=== PATIENT | female | born 1960 | race Caucasian/White ===

== ENCOUNTER 2020-11-28 14:34 | Outpatient (CLI) | payer OTHER, SELFPAY ==
--- NOTE | ~2020-11-28 | XR_ITS ---
EXAMINATION: XR knee RT min 4V DATE: 11/28/2020 15:55 INDICATION: Abnormality of gait and mobility. TECHNIQUE: 4 views of right knee were obtained. COMPARISON: None. FINDINGS: There is lateral subluxation of patella. No fracture. There is severe osteoarthritis of lat eral and patellofemoral compartments and moderate osteoarthritis of medial compartment. No knee joint effusion. There is a 2.7 cm loose body in the suprapatellar bursa. IMPRESSION: 1. Severe right knee osteoarthritis. 2. Right knee joint loose body. Reviewed, dictated and finalized at location A. FACTURING PROCESS TECHNICIAN
--- NOTE | ~2020-11-28 | XR_ITS ---
EXAMINATION: XR knee LT min 4V DATE: 11/28/2020 15:54 INDICATION: Abnormality of gait and mobility. TECHNIQUE: 4 views of left knee were obtained. COMPARISON: None. FINDINGS: There is lateral subluxation of patella. No fracture. There is severe tricompartmental oste oarthritis. No knee joint effusion, but sensitivity is decreased by obesity. IMPRESSION: 1. Severe left knee osteoarthritis. Reviewed, dictated and finalized at location A. LLIGENCE ENGINEER
[2020-11-28 15:09] LABS: Basophils Absolute Auto 0.1 K/mm3 (0.0-0.1); Basophils Percent Auto 0.5 % (0.2-1.2); Eosinophils Absolute Auto 0.2 K/mm3 (0-0.3); Eosinophils Percent Auto 1.5 % (0-4.4); Hemoglobin 17.5 g/dL (12.0-15.0); Immature Granulocyte Absolute 0.14 K/mm3 (0.00-0.031); Lymphocytes Absolute Auto 2.93 K/mm3 (0.9-3.2); Lymphocytes Percent Auto 20.1 % (18.3-44.2); Mean Corpuscular Hemoglobin 28.7 pg (26-34); Mean Corpuscular Volume 86.9 fl (80-100); Mean Platelet Volume 9.5 fl (7.4-10.4); Monocytes Absolute Auto 0.8 K/mm3 (0.1-0.6); Monocytes Percent Auto 5.5 % (2.6-8.5); Neutrophils Absolute Auto 10.4 K/mm3 (1.3-6.7); Neutrophils Percent Auto 71.4 % (45.5-73.1); Platelet Count Result 281 k/mm3 (150-375); Red Cell Distribution Width 14.3 % (11.5-14.5); White Blood Count 14.6 K/mm3 (4.5-10.0)
[2020-11-28 15:22] LABS: Alanine Aminotransferase 16 U/L (4-35); Alkaline Phosphatase 98 U/L (38-126); Anion Gap 5 mmol/L (8-16); Aspartate Amino Transferase 16 U/L (14-36); Bilirubin,Total 0.7 mg/dL (0.2-1.3); Blood Urea Nitrogen 14 mg/dL (7-17); Calcium 8.7 mg/dL (8.4-10.2); Carbon Dioxide 30 mmol/L (22-30); Chloride 103 mmol/L (98-107); Cholesterol 175 mg/dL (0-200); Estimated Glomerular Filt Rate > 60; Glucose 104 mg/dL (65-105); HDL Direct 35 mg/dL; Sodium 138 mmol/L (137-145); Triglycerides 181 mg/dL (<150)
[2020-11-28 15:32] LABS: LDL Cholesterol Direct 110 mg/dL
[2020-11-28 15:47] LABS: Creatinine Urine 74.1 mg/dL
[2020-11-28 15:52] LABS: MALB Creatinine Ratio 23.1 mg/g (0-30); Microalbumin Urine Random 17.1 mg/L (0-16.7)
[2020-11-28 16:02] LABS: Free T4 Free Thyroxine 1.04 ng/mL (0.78-2.19)
[2020-11-28 16:18] LABS: Hemoglobin A1C 9.9 % (<5.7)
[2020-11-28 17:56] LABS: Vitamin D 25 Hydroxy < 12.8 ng/mL
== END 2020-11-28 14:35 | disposition home or self-care (01) ==
PROVIDERS: PCP Family Medicine; Visit Provider Nurse Practitioner
DX: Z00.01 Encounter for general adult medical examination with abnormal findings (principal); E11.42 Type 2 diabetes mellitus with diabetic polyneuropathy; I10 Essential (primary) hypertension; F31.9 Bipolar disorder, unspecified; F41.1 Generalized anxiety disorder; E78.00 Pure hypercholesterolemia, unspecified; E55.9 Vitamin D deficiency, unspecified; R80.9 Proteinuria, unspecified; M23.41 Loose body in knee, right knee; M17.0 Bilateral primary osteoarthritis of knee
CPT/HCPCS: 36415; 73564; 80053; 80061; 82043; 82306; 83036; 84439; 84443; 84481; 85025

== ENCOUNTER 2020-12-25 12:30 | Outpatient (RCR) | payer OTHER, SELFPAY ==
--- NOTE | 2020-12-18 12:27 | PTOPEVAL ---
PHYSICAL THERAPY EVALUATON Thank you for referring Juliann Moody to [facility].? Juliann was evaluated today for the diagnosis of molina.knee pain. The patient is scheduled to be seen for therapy? 2 x/week for 4 weeks. Please review, sign, date and return this plan of care LAURA. I agree with and certify that the following plan of care is medically necessary. Referring Physician Date Attending Provider: Ana Buckner, BRISA *PT Outpatient Evaluation Start: 12/18/20 09:18 Freq: Status: Active Protocol: Document 12/18/20 09:18 MLV (Rec: 12/18/20 10:43 MLV [id number]) Assessment Status Evaluation Evaluation Information Problem Diagnosis molina. knee pain/OA Onset chronic Additional Evaluation Detail The patient reports molina. knee pain with left>right. The patient has had knee pain for 25 years and finally saw a new MD. The patient had xrays and found OA. The patient had an injection left knee 1 month that didn't help so scheduled to have gel shots through pain management. Subjective Information The patient realizes her Query Text:As Reported By Patient/ limits and her goal is to walk Family short distances to be more functional at her apartment for daily activities. Pain Assessment Timing of Pain Assessment Assessment Pain Scale Pain Scale Used Numeric (1 - 10) Self Report Pain Assessment Right Knee(s) Reported Pain Level 7 Pain Frequency Chronic Greatest Pain Intensity 10 Pain Aggravating Factors Exercise/Activity Pain Behaviors Guarding,Limping Left Knee(s) Reported Pain Level 8 Pain Description With Movement Pain Frequency Chronic Other Pain Description has a ramp to avoid stairs Greatest Pain Intensity 10 Pain Aggravating Factors Exercise/Activity,Walking, Weight Bearing/Standing Pain Behaviors Grimacing,Limping,Moaning Pain Score Pain Score 8,7: Self Report Interventions Used Interventions Used By Clinicians Education Pain Relief Interventions Used By Ice,Inactivity/Rest,Relaxation Patient Technique,Sitting Other Alleviating Interventions icy hot Lower Extremity Range of Motion General Lower Extremity Range of Motion Gross Lower Extremity Range of Motion right knee active motion 22 Comments degrees extension, 1
--- NOTE | 2020-12-22 09:44 | PCPTNOTE ---
Patient called & cancelled scheduled appointment this date due to having a stomach bug. Plans to return for next visit.
--- NOTE | 2020-12-28 11:19 | PCPTNOTE ---
Patient called & cancelled scheduled appointment this date due to falling.
--- NOTE | 2021-01-04 13:33 | PCPTNOTE ---
Patient did not show up for scheduled appointment this date. Called and had to leave a message.
--- NOTE | 2021-01-08 13:59 | PCPTNOTE ---
Juilann No-showed for maximino's appointment at 13:30. Called to reschedule and remind Pt of upcoming appointment. Pt answered, she requested to cancel today's and all future appointments. She stated she keeps falling at home and is in too much pain to make it to therapy. She also stated she would not be able to return to therapy until February due to moving. Informed Pt we are here to help her to improve strength to prevent her from falling and help her with managing her pain. Pt stated she understood however continued to insist on canceling all future appointment. Therapist and front office help were informed of Pt's request.
--- NOTE | 2021-01-08 14:03 | PCPTNOTE ---
PHYSICAL THERAPY DISCHARGE Attending Provider: Ana Buckner, SAFETY CLOTHING AND EQUIPMENT DEVELOPER- Patient:Juliann Moody Date of :1960 Patient has not returned for any further treatments since 12/25/2020, therefore she will be discharged at this time. The patient was called to assess reason for not showing; patient reports wanting to cancel all further appointments due to multiple personal factors. Patient?s initial visit was on 12/18/2020 09:15 and she had a total of 2 visits. The goals have not been met. Thank you for referring this patient to [facility]. Please review, sign, date and return this discharge summary LAURA. I have been updated about the patient's current status and I agree with discharge from the above service at this time. Referring Physician Date
== END 2021-01-09 10:15 | disposition home or self-care (01) ==
LOC: ANHPT 12:30
PROVIDERS: PCP Family Medicine; Visit Provider Nurse Practitioner Family
DX: M25.561 Pain in right knee (principal); M25.562 Pain in left knee
CPT/HCPCS: 97110; 97162

== ENCOUNTER 2023-08-08 12:20 | Inpatient (IN) | payer OTHER, SELFPAY ==
[2023-08-08] VITALS (21 sets, daily range): BP systolic 99–122; BP diastolic 63–88; PULSE 93–105; RESP 16–22; TEMP 36.3–36.8; O2SAT 89–98; BMI 68.0
--- NOTE | ~2023-08-08 | XR_ITS ---
EXAMINATION: XR chest 1V portable Exam Date/Time: 08/09/2023 19:05 CDT HISTORY: sob weakness Comparison: None. RESULT: Motion artifact is present. Lines, tubes, and devices: None. Lungs and pleura: Clear. Cardiomediastinal silhouette: Unremarkable. Other: No acute osseous or upper abdominal finding. IMPRESSION: No acute cardiopulmonary process. Reviewed, dictated and finalized at location K.
--- NOTE | ~2023-08-08 | XR_ITS ---
EXAM: XR knee LT 3V DATE: 08/10/2023 15:17 HISTORY: effusion AND pain . COMPARISON: None available. FINDINGS: Normal mineralization. No fracture or dislocation. No lytic or blastic lesion. Severe tric ompartmental left knee osteoarthritis. No erosion or periosteal change. Moderate knee joint effusion. IMPRESSION: No acute osseous finding in the left knee. Reviewed, dictated and finalized at location K.
--- NOTE | ~2023-08-08 | CT_ITS ---
EXAMINATION: CT brain wo con DATE: 08/08/2023 18:34 INDICATION: Mental status change. Generalized weakness. Frequent falls. TECHNIQUE: Computed tomography (CT) of the head was performed without intravenous contrast. The mA wa s adjusted according to patient size. Iterative reconstruction technique was employed. Exam dose: 60 5.33 mGy-cm total exam DLP. COMPARISON: None FINDINGS: No intracranial mass lesion or hemorrhage or cerebrovascular accident, midline shift or mas s effect is detected. No subdural or epidural hematoma. Bilateral carotid siphon internal carotid artery calcifications and some vertebral artery and basilar artery calcifications are noted. The included paranasal sinuses and the mastoid air cells are normally developed and aerated. No fracture or bone destruction of the cranial vault. IMPRESSION: No skull fracture or acute intracranial finding Cerebral atherosclerosis Reviewed, dictated and finalized at Location A. Reviewed, dictated and finalized at location A.
--- NOTE | ~2023-08-08 | XR_ITS ---
EXAMINATION: XR chest 1V portable INDICATION: Shortness of breath TECHNIQUE: Portable AP chest at 1701 hours COMPARISON: 08/09/2023 FINDINGS: There are airspace opacities of the mid and lower lung zones. No pleural effusion or pneumo thorax. The cardiomediastinal silhouette is normal. IMPRESSION: 1. Airspace opacities of the mid and lower lung zones, consistent with pneumonia versus pulmonary porfirio ma versus atelectasis. Reviewed, dictated and finalized at location F. IMPRESSION: 1. Airspace opacities of the mid and lower lung zones, consistent with pneumoni a versus pulmonary edema versus atelectasis.
--- NOTE | ~2023-08-08 | US_ITS ---
EXAMINATION: US venous doppler [facility] DATE: 08/15/2023 10:21 INDICATION: Calf pain. TECHNIQUE: Grayscale ultrasound images without and with compression and Doppler ultrasound images of the bilateral lower extremity veins were obtained. COMPARISON: None. FINDINGS: The visualized portions of right common femoral vein, profunda (deep) femoral vein, femoral vein, pop liteal vein, peroneal veins, posterior tibial veins, and greater saphenous vein outflow are patent. The visualized portions of left common femoral vein, profunda femoral vein, femoral vein, popliteal v ein, peroneal veins, posterior tibial veins, and greater saphenous vein outflow are patent. IMPRESSION: 1. No deep venous thrombosis. Reviewed, dictated and finalized at location E.
--- NOTE | ~2023-08-08 | XR_ITS ---
XR femur LT min 2V, XR hip LT min 2V 08/15/2023 09:45 Indication: Left leg pain Procedure: 2 views left hip and 2 views left femur Comparison: No prior studies for comparison. Findings: There is mild osteoarthritis of the left hip. There is severe osteoarthritis of the left kn ee. Normal mineralization. No fracture or traumatic malalignment. No foreign bodies. There is osteiti s pubis. 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 Reviewed, dictated and finalized at location B. 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
--- NOTE | 2023-08-08 16:13 | ED.WEAKNESS ---
HPI - Weakness General Chief complaint: Weakness Stated complaint: weakness Time Seen by Provider: 08/08/23 16:13 History of Present Illness HPI Narrative: Patient is a 63-year-old female with history of DM, CAD s/p PCI x1 here with frequent falls. Patient notes that over the last 1 week she has had 7 falls. She states that she usually feels dizzy, lightheaded and then slides to the ground. She denies any head injuries. She has not had any shortness of breath or chest pain prodromal to her falls. She denies any diarrhea, cough, congestion. She does note that she has pain in her bilateral inguinal folds were she has had recurrent infections in the past. She has had significant difficulty bathing herself in usually takes short Sitz baths however even this has been difficult. She does note that she had necrotizing fasciitis in the past in her right groin, she notes that is not feel similar to that at this point. She denies any fever chills. Related Data Allergies Allergy/AdvReac Type Severity Reaction Status Date / Time morphine Allergy Swelling Verified 08/08/23 20:44 of Lip/Tongue/Throat Review of Systems Review of Systems: CONSTITUTIONAL: Denies fever, chills, or sweats. EYES: Denies visual changes, redness, or discharge. ENT: Denies rhinorrhea, congestion, sore throat, or otalgia. CARDIOVASCULAR: Denies chest pain, palpitations, or edema. Light headedness, dizziness. RESPIRATORY: Denies cough or dyspnea. GASTROINTESTINAL: Denies abdominal pain, nausea, vomiting, or diarrhea. GENITOURINARY: Denies dysuria or hematuria. SKIN: rashes in bilateral inguinal folds. MUSCULOSKELETAL: chronic back pain, no joint pain, or myalgia. NEUROLOGIC: Denies headache, numbness, or weakness. Exam Narrative: GENERAL: Well-appearing, well-nourished, and in no acute distress. HEAD: Normocephalic, atraumatic. EYES: PERRLA and EOMI. ENT: Nares clear. Mucous membranes moist. NECK: Supple. CHEST: Clear to auscultation. No respiratory distress. HEART: Regular rate and rhythm. Normal peripheral pulses. ABDOMEN: Soft, nontender, obese abdomen. EXTREMITIES: Normal range of motion. No edema. SKIN: Warm, skin breakdown present in bilateral inguinal folds underneath her pannus. She does have some discharge bilaterally however appears to likely be consistent with application of gold greco powder at home. She is tender on the right, may have some early cellulitis in addition to fungal infection. Clinically does not appear to have necrotizing fasciitis NEURO: No focal deficits. Alert and oriented x3. PSYCH: Normal mood and affect. Course Course Emergency Course: Chart review performed. Patient here for generalized weakness and frequent falls. Uses an electric wheelchair. PCP reportedly recommended coming into the ED. No prior notes in our system to review. Triage vitals show tachycardia otherwise within normal limits. Patient seen evaluated, in no acute distress. She does have skin breakdown and bilateral inguinal folds, concerning for cellulitis on the right, no palpable crepitus. I do not believe she currently has necrotizing fasciitis in this area. Will start vancomycin for cellulitis. Informed by Radiology that patient refused her CT due to claustrophobia. I did speak with the patient, she is agreeable to taking a small dose of Ativan prior to attempted CT. Nursing updated on plan. Lab work reviewed, no leukocytosis, creatinine 1.8, this is up from her baseline of 0.5. CRP 21.5, this is likely due to her cellulitis in her right groin. UA not consistent with UTI. Will call to discuss admission with hospitalist. Patient accepted for admission by Dr. Velez. Nystatin powder ordered for inguinal folds. Recommends 100 cc/hr NS. These have been ordered. Vital Signs Vital signs: Vital Signs Temperature 97.5 F L 08/08/23 12:47 Pulse Rate 105 H 08/08/23 12:47 Respiratory Rate 18 08/08/23 12:47 Blood Pressu
--- NOTE | 2023-08-08 16:17 | ECG_ITS ---
Measurements Intervals [place] Rate: 96 P: 62 DC: 179 QRS: -13 QRSD: 96 T: 78 QT: 334 QTc: 422 Interpretive Statements SINUS RHYTHM POSSIBLE LEFT ATRIAL ENLARGEMENT DELAYED PRECORDIAL R/S TRANSITION BASELINE ARTIFACT- I, II, AVR, AVL, AVF, V1, V3 BORDERLINE ECG NO PREVIOUS ECG AVAILABLE FOR COMPARISON Electronically Signed On 08-08-2023 20:22:40 CDT by Wellington Baker D.O.
--- NOTE | 2023-08-08 17:02 | PC.NURSE ---
pt has jagdeep areas that appears to be yeast as evidence by appearance and odor under abdominal fold and behind left knee. Reports she has been treating areas with gold greco powder
[2023-08-08 17:14] LABS: Mean Corpuscular HGB Conc 33.3 g/dl (32-36); Mean Corpuscular Hemoglobin 28.8 pg (26-34); Mean Corpuscular Volume 86.5 fl (80-100); Mean Platelet Volume 10.1 fl (7.4-10.4); Platelet Count Result 256 k/mm3 (150-375); Red Cell Distribution Width 15.5 % (11.5-14.5); White Blood Count 7.6 K/mm3 (4.5-10.0)
[2023-08-08 17:25] LABS: Lactic Acid Reflex 1.5 mmol/L (0.7-2.0)
[2023-08-08 17:27] LABS: Appearance Urine Cloudy (Clear); Bacteria Urine None Seen /hpf; Bilirubin Urine 2+ (Negative); Blood Urine Negative (Negative); Color Urine Dark Yellow (Yellow); Glucose Urine UA 3+ mg/dL (Negative); Ketones Urine Trace mg/dL (Negative); Leukocyte Esterase Ur Trace LEU/UL (Negative); Need Manual Microscopic Reviewed; Nitrate Urine Negative (Negative); Non Pathogenic Casts >20; Protein Urine 1+ mg/dL (Negative); RBC Urine 0-2 /hpf (0-2); Specific Grav Ur 1.025 (1.001-1.035); Squamous Epithelial Cell Urine Few /hpf (Few); WBC Urine 0-5 /hpf
[2023-08-08 17:30] LABS: Add Urine Microscopic? YES
[2023-08-08 17:39] LABS: Band Neutrophils Percent 2 % (0-6); Monocytes Absolute Manual 0.91 K/mm3 (0.1-0.90); Monocytes Percent Manual 12 % (3-9); Neutrophils Absolute Manual 4.78 K/mm3 (1.7-7.2); Neutrophils Percent Manual 61 % (46-73); Total Cells Counted 100
[2023-08-08 17:40] LABS: Platelet Estimate Adequate (Adequate); Schistocytes None Seen (NORMAL)
[2023-08-08 17:41] LABS: Anisocytosis 2+ (NORMAL); Atypical Lymphocytes Present
[2023-08-08] MEDS: Please add drug allergy info to patient profile. 1 EACH XX (17:53)
[2023-08-08] MEDS: LORazepam INJ (*CRX) 2 MG/ML VIAL 1 MG IV PUSH (18:20)
[2023-08-08 19:00] LABS: CRP 21.5 mg/dL (<1.0)
--- NOTE | 2023-08-08 19:27 | PC.NURSE ---
This RN assumed care of patient. This RN took patient report from IMANI Saba.
[2023-08-08 20:10] LABS: Alanine Aminotransferase 27 U/L (6-35); Albumin Level 3.7 g/dL (3.5-5.1); Alkaline Phosphatase 112 U/L (38-126); Anion Gap 9 mmol/L (8-16); Aspartate Amino Transferase 30 U/L (14-36); Bilirubin,Total 0.7 mg/dL (0.2-1.3); Blood Urea Nitrogen 38 mg/dL (7-17); Calcium 8.4 mg/dL (8.4-10.2); Carbon Dioxide 23 mmol/L (22-30); Chloride 98 mmol/L (98-107); Creatine Kinase 184 U/L (30-135); Estimated CRCL calculation 44 ml/min; Estimated Glomerular Filt Rate 29; Glucose 185 mg/dL (65-110); Potassium 4.3 mmol/L (3.4-5.0); Sodium 130 mmol/L (137-145)
[2023-08-08 20:22] LABS: Troponin I < 0.012 ng/mL (0.000-0.034)
[2023-08-08] MEDS: LACTATED RINGERS 1,000 ML 999 ML IV CONT (20:47)
[2023-08-08] MEDS: HYDROmorphone HCL INJ (*CRX) 1 MG/ML SYR IV PUSH (20:58)
[2023-08-08] MEDS: ONDANSETRON INJ 4 MG/2 ML VIAL IV PUSH (20:58)
--- NOTE | 2023-08-08 21:39 | PC.NURSE ---
Upon pt falling asleep pt placed on 2L Nasal cannula due to oxygen saturation dropping to 88%. Pt denies wearing oxygen at night. Pt oxygen saturation at 96% after 2L applied. EDP Dr. Vo notified and made aware.
--- NOTE | 2023-08-08 23:25 | PM.IMHP ---
H&P: HPI History of Present Illness Date/Time: 08/08/23 23:25 Chief Complaint: Patient came to the ER for evaluation with complains of dizziness, weakness and multiple falls Narrative: She is a very unfortunate 63 years old, class 5 super morbidly obese white female with BMI of 68, who is complaining of feeling weak tired and fatigued for the last week. She has had 7 falls, feels dizzy, lightheaded then slides to the ground. She came to the ER for evaluation. She notes that she has pain in the bilateral inguinal folds where she has had recurrent infections in the past. She also has a history of necrotizing fasciitis in the right inguinal fold in the past. She has difficulty bathing himself and usually takes short Sitz baths and now even those have become difficult. Workup was done in the ER which showed cellulitis and fungal infection involving inguinal folds, right more than the left. She has been started on IV antibiotics, and is being admitted for wound care consult and recommendations. Review of Systems Review of Systems: she complains of pain and itching in both inguinal folds. Denies any chest pain palpitations fever rigor chills nausea vomiting or abdominal pain All systems reviewed & are unremarkable except as noted in HPI and below PMFSH Past Medical History Medical History (Updated 08/09/23 @ 05:12 by Elkin Velez MD) Cellulitis of groin Diabetes mellitus with hyperglycemia Morbid obesity with BMI of 60.0-69.9, adult Family History Family History Father Acute myocardial infarction Hypertension Grandparent Chronic obstructive pulmonary disease Diabetes mellitus Mother Congestive heart failure Diabetes mellitus Hypertension Other Leukemia Social History Social History Smoking packs per day: 1 Smoking cigarettes per day: 20.0 Smoking status: Current every day smoker Alcohol intake: current Drinks per week: 1 Substance use: current Substance use type: marijuana Other substance usage details: SMOKES 2X DAY AND OCC GUMMIES Lack of Transportation: No Lack of Food: Never True Current Housing: Decline to Answer Concerned About Future Housing: No Difficulty Paying Gas/Electric Bills: No Difficulty Paying for Meds: No Currently Unemployed: No Education: High School Diploma/GED Difficulty w/ Childcare or Family Care: No Spiritual care concerns: No Meds Home Medications and Allergies Home Medications Medication Instructions Recorded Confirmed Type atorvastatin 40 mg tablet 40 mg PO DAILY 08/09/23 08/09/23 History citalopram 40 mg tablet 40 mg PO DAILY 08/09/23 08/09/23 History docusate sodium 100 mg capsule 100 mg PO BID 08/09/23 08/09/23 History ergocalciferol (vitamin D2) 1,250 1,250 mcg PO WEEKLY 08/09/23 08/09/23 History mcg (50,000 unit) capsule (Vitamin D2) famotidine 40 mg tablet 40 mg PO DAILY 08/09/23 08/09/23 History gabapentin 800 mg tablet 800 mg PO TID 08/09/23 08/09/23 History lisinopril 30 mg tablet 30 mg PO DAILY 08/09/23 08/09/23 History meloxicam 15 mg tablet 15 mg PO DAILY 08/09/23 08/09/23 History metformin 500 mg PO TID 08/09/23 08/09/23 History nortriptyline 25 mg capsule 25 mg PO TID 08/09/23 08/09/23 History oxybutynin chloride 5 mg tablet 5 mg PO DAILY 08/09/23 08/09/23 History primidone 250 mg tablet 250 mg PO BID 08/09/23 08/09/23 History ropinirole 3 mg tablet 3 mg PO HS 08/09/23 08/09/23 History tramadol 100 mg PO BID PRN Pain (Scale 08/09/23 08/09/23 History Score 4-6) Allergies Allergy/AdvReac Type Severity Reaction Status Date / Time morphine Allergy Swelling Verified 08/08/23 20:44 of Lip/Tongue/Throat Vital Signs Vital Signs - 24 hr 08/08/23 12:47 08/08/23 16:35 08/08/23 17:16 Temperature 36.4 C L Pulse Rate 105 H 100 95 Respiratory Rate 18 16 17 Blood Pressure 119/71 120/88 122/82
[2023-08-08] MEDS: TOLNAFTATE 1% POWDER 45 GM BTL 1 APPLIC TOPICAL (23:56)
[2023-08-08] MEDS: SODIUM CHLORIDE 0.9% IV 1,000 ML 100 ML IV CONT (23:57)
[2023-08-09 04:00] VITALS: BP 107/58; PULSE 88; RESP 20; TEMP 36.4; O2SAT 97
[2023-08-09 04:57] LABS: Estimated CRCL calculation 37 ml/min; Estimated Glomerular Filt Rate 21
[2023-08-09 08:00] VITALS: BP 114/64; PULSE 78; RESP 18; TEMP 36.1; O2SAT 98
[2023-08-09 08:58] LABS: Glucose Point of Care 188 mg/dl (65-105)
--- NOTE | 2023-08-09 09:02 | PM.IMPN ---
Progress Note: A&P Assessment and Plan (1) Diabetes mellitus with hyperglycemia: Code(s): E11.65 - Type 2 diabetes mellitus with hyperglycemia Status: Acute Assessment and Plan: Accu-Cheks, sliding scale insulin, check A1c Diabetic diet Blood glucose reviewed 08/09 (2) Morbid obesity with BMI of 60.0-69.9, adult: Code(s): E66.01 - Morbid (severe) obesity due to excess calories; Z68.44 - Body mass index [BMI] 60.0-69.9, adult Status: Acute (3) MINA (acute kidney injury): Code(s): N17.9 - Acute kidney failure, unspecified Status: Acute Assessment and Plan: Gentle IV fluid hydration, reassess (4) Cellulitis: Qualifiers: Site of cellulitis: other site Qualified Code(s): L03.818 - Cellulitis of other sites Code(s): L03.90 - Cellulitis, unspecified Status: Acute Assessment and Plan: IV antibiotics, wound care consult pending Plan DVT prophylaxis with SCDs GI prophylaxis not indicated Code status full code Subjective Date/time seen: 08/09/23 09:02 Interval history: No overnight events noted. No chest pain or shortness of breath. No nausea, vomiting or diarrhea. No fevers or chills. Review of Systems Review of Systems: 12 point review of systems was assessed and was negative except as noted in the HPI Exam Narrative: General: No acute distress, alert and oriented per baseline HEENT: Atraumatic, normocephalic, mucous membranes moist CV: Regular rate and rhythm, S1, S2 Lungs: Clear to auscultation bilaterally, no rales or crackles noted, no wheezes, good air entry Abdomen: Soft, nontender, nondistended Extremities: Normal to inspection Skin: No rashes noted, no lesions or wounds seen Psych: Euthymic, normal affect Objective Data Vital Signs Vital Signs: Vital Signs - 24 hr 08/08/23 12:47 08/08/23 16:35 08/08/23 17:16 Temperature 97.5 F L Pulse Rate 105 H 100 95 Respiratory Rate 18 16 17 Blood Pressure 119/71 120/88 122/82 Pulse Oximetry 94 96 95 Oxygen Delivery Room Air Oxygen Flow Rate 08/08/23 18:19 08/08/23 19:00 08/08/23 21:38 Temperature 98.3 F 98.3 F Pulse Rate 96 97 Respiratory Rate 16 16 Blood Pressure 100/84 121/84 Pulse Oximetry 96 96 96 Oxygen Delivery Nasal Cannula Oxygen Flow Rate 2 08/08/23 18:16 08/08/23 18:50 08/08/23 19:08 Temperature Pulse Rate 94 94 97 Respiratory Rate 18 19 20 Blood Pressure Pulse Oximetry Oxygen Delivery Oxygen Flow Rate 08/08/23 19:19 08/08/23 20:49 08/08/23 21:00 Temperature Pulse Rate 99 99 97 Respiratory Rate 18 17 16 Blood Pressure Pulse Oximetry 93 97 Oxygen Delivery Oxygen Flow Rate 08/08/23 21:04 08/08/23 21:15 08/08/23 21:33 Temperature Pulse Rate 98 96 95 Respiratory Rate 19 20 17 Blood Pressure 99/63 L Pulse Oximetry 92 89 L 93 Oxygen Delivery Oxygen Flow Rate 08/08/23 21:45 08/08/23 21:46 08/08/23 22:04 Temperature Pulse Rate 93 93 96 Respiratory Rate 17 22 H 16 Blood Pressure 101/74 Pulse Oximetry 94 95 98 Oxygen Delivery Oxygen Flow Rate 08/08/23 22:15 08/08/23 22:30 08/09/23 00:04 Temperature Pulse Rate 93 93 Respiratory Rate 17 17 Blood Pressure Pulse Oximetry 97 96 Oxygen Delivery Room Air Oxygen Flow Rate 08/08/23 23:41 08/09/23 04:00 Temperature 97.3 F L 97.6 F Pulse Rate 94 88 Respiratory Rate 22 H 20 Blood Pressure 102/84 107/58 L Pulse Oximetry 95 97 Oxygen Delivery Oxygen Flow Rate Intake/Output Intake/Output: Intake & Output 08/06/23 08/07/23 08/08/23 08/09/23 23:59 23:59 23:59 23:59 Intake Total 1000 890 Output Total 100 Balance 900 890 Meds/Results Medications: Active Medications Generic Name Dose Route Start Last Admin Trade Name Freq PRN Reason Stop Dose Admin Acetaminophen 650 mg 08/09/23 05:20 Acetaminophen 325 Mg Tablet PO Q4H PRN
[2023-08-09] MEDS: ATORVASTATIN 40 MG TABLET PO (09:16)
[2023-08-09] MEDS: GABAPENTIN 400 MG CAPSULE 800 MG PO ×3 (09:16→17:03)
[2023-08-09] MEDS: NORTRIPTYLINE HCL 25 MG CAPSULE PO ×3 (09:17→17:03)
[2023-08-09] MEDS: PRIMIDONE 250 MG TABLET PO ×2 (09:17→17:03)
[2023-08-09] MEDS: oxyBUTYnin CHLORIDE 5 MG TABLET PO (09:17)
[2023-08-09] MEDS: DOCUSATE SODIUM 100 MG CAPSULE PO ×2 (09:17→17:03)
[2023-08-09] MEDS: lisinopriL 10 MG TABLET 30 MG PO (09:17)
[2023-08-09] MEDS: ENOXAPARIN 30 MG/0.3 ML SYRINGE SUB-Q ×2 (09:17→22:20)
[2023-08-09] MEDS: FAMOTIDINE 20 MG TABLET 40 MG PO (09:17)
[2023-08-09] MEDS: CITALOPRAM HYDROBROMIDE 20 MG TABLET 40 MG PO (09:17)
[2023-08-09] MEDS: TOLNAFTATE 1% POWDER 45 GM BTL 1 APPLIC TOPICAL ×2 (09:18→22:19)
[2023-08-09] MEDS: traMADol HCL (*CRX) 50 MG TABLET 100 MG PO ×2 (09:18→17:03)
[2023-08-09 12:28] LABS: Glucose Point of Care 197 mg/dl (65-105)
[2023-08-09 14:45] VITALS: BP 117/97; PULSE 119; RESP 20; TEMP 36.2; O2SAT 92
[2023-08-09] MEDS: ACETAMINOPHEN 325 MG TABLET 650 MG PO (14:51)
[2023-08-09] MEDS: SODIUM CHLORIDE 0.9% IV 1,000 ML 100 ML IV CONT (14:52)
[2023-08-09 16:42] LABS: Glucose Point of Care 213 mg/dl (65-105)
[2023-08-09] MEDS: INSULIN ASPART (*BKC) 100 UNITS/ML SUB-Q (17:02)
--- NOTE | 2023-08-09 19:45 | PC.NURSE ---
Left message with Willa Bonilla, hematology nurse educator, to see patient
[2023-08-09 19:49] VITALS: BP 105/68; PULSE 87; RESP 18; TEMP 36.3; O2SAT 92
[2023-08-09] MEDS: cefTRIAXone 2 GM/NS 100 ML 2 GM/100 ML BAG IVPB (19:49)
[2023-08-09 20:22] LABS: Lactic Acid Reflex 1.3 mmol/L (0.7-2.0)
[2023-08-09 20:24] LABS: Hemoglobin A1C 6.8 % (<5.7)
[2023-08-09 20:36] LABS: Procalcitonin 0.2 ng/mL
[2023-08-09 21:07] LABS: Glucose Point of Care 203 mg/dl (65-105)
[2023-08-09] MEDS: rOPINIRole HCL 1 MG TABLET 3 MG PO (22:19)
[2023-08-09] MEDS: metroNIDAZOLE 250 MG TABLET 500 MG PO (22:19)
[2023-08-10] VITALS (8 sets, daily range): BP systolic 97–125; BP diastolic 54–85; PULSE 67–112; RESP 16–20; TEMP 36.2–36.8; O2SAT 90–96
[2023-08-10] MEDS: SODIUM CHLORIDE 0.9% IV 1,000 ML 125 ML IV CONT ×2 (04:32→13:26)
[2023-08-10] MEDS: traMADol HCL (*CRX) 50 MG TABLET 100 MG PO ×2 (04:33→14:56)
[2023-08-10] MEDS: metroNIDAZOLE 250 MG TABLET 500 MG PO ×3 (05:25→21:28)
[2023-08-10 05:53] LABS: Basophils Absolute Auto 0.1 K/mm3 (0.0-0.1); Basophils Percent Auto 0.9 % (0.2-1.2); Eosinophils Absolute Auto 0.1 K/mm3 (0-0.3); Hematocrit 41.7 % (37.0-47.0); Hemoglobin 13.2 g/dL (12.0-15.0); Immature Granulocyte Absolute 0.04 K/mm3 (0.00-0.031); Immature Granulocyte Percent A 0.7 % (0-0.5); Lymphocytes Absolute Auto 1.54 K/mm3 (0.9-3.2); Lymphocytes Percent Auto 28.6 % (18.3-44.2); Mean Corpuscular HGB Conc 31.7 g/dl (32-36); Mean Corpuscular Hemoglobin 28.1 pg (26-34); Mean Corpuscular Volume 88.9 fl (80-100); Mean Platelet Volume 9.8 fl (7.4-10.4); Monocytes Absolute Auto 0.4 K/mm3 (0.1-0.6); Monocytes Percent Auto 7.4 % (2.6-8.5); Neutrophils Absolute Auto 3.3 K/mm3 (1.3-6.7); Neutrophils Percent Auto 60.4 % (45.5-73.1); Platelet Count Result 236 k/mm3 (150-375); Red Blood Count 4.69 M/mm3 (4.2-5.4); Red Cell Distribution Width 15.9 % (11.5-14.5); White Blood Count 5.4 K/mm3 (4.5-10.0)
[2023-08-10 06:03] LABS: Alanine Aminotransferase 20 U/L (6-35); Alkaline Phosphatase 101 U/L (38-126); Anion Gap -1 mmol/L (8-16); Aspartate Amino Transferase 24 U/L (14-36); Bilirubin,Total 0.5 mg/dL (0.2-1.3); Blood Urea Nitrogen 35 mg/dL (7-17); Calcium 7.6 mg/dL (8.4-10.2); Carbon Dioxide 28 mmol/L (22-30); Chloride 101 mmol/L (98-107); Estimated CRCL calculation 64 ml/min; Estimated Glomerular Filt Rate 42; Glucose 175 mg/dL (65-110); Magnesium 2.1 mg/dL (1.6-2.3); Phosphorus 3.2 mg/dL (2.5-4.5); Potassium 4.7 mmol/L (3.4-5.0); Sodium 128 mmol/L (137-145)
[2023-08-10 08:30] LABS: Glucose Point of Care 175 mg/dl (65-105)
[2023-08-10] MEDS: PRIMIDONE 250 MG TABLET PO ×2 (08:39→16:15)
[2023-08-10] MEDS: lisinopriL 10 MG TABLET 30 MG PO (08:39)
[2023-08-10] MEDS: FAMOTIDINE 20 MG TABLET 40 MG PO (08:39)
[2023-08-10] MEDS: GABAPENTIN 400 MG CAPSULE 800 MG PO ×3 (08:39→16:14)
[2023-08-10] MEDS: CITALOPRAM HYDROBROMIDE 20 MG TABLET 40 MG PO (08:39)
[2023-08-10] MEDS: NORTRIPTYLINE HCL 25 MG CAPSULE PO ×3 (08:40→16:15)
[2023-08-10] MEDS: oxyBUTYnin CHLORIDE 5 MG TABLET PO (08:40)
[2023-08-10] MEDS: ACETAMINOPHEN 325 MG TABLET 650 MG PO (08:40)
[2023-08-10] MEDS: ATORVASTATIN 40 MG TABLET PO (08:40)
[2023-08-10] MEDS: TOLNAFTATE 1% POWDER 45 GM BTL 1 APPLIC TOPICAL ×2 (08:44→21:29)
[2023-08-10] MEDS: ENOXAPARIN 30 MG/0.3 ML SYRINGE SUB-Q ×2 (08:44→21:26)
[2023-08-10] MEDS: INSULIN ASPART (*BKC) 100 UNITS/ML SUB-Q (12:22)
[2023-08-10 12:30] LABS: Glucose Point of Care 214 mg/dl (65-105)
--- NOTE | 2023-08-10 14:41 | PM.IMPN ---
Progress Note: A&P Assessment and Plan (1) Diabetes mellitus with hyperglycemia: Code(s): E11.65 - Type 2 diabetes mellitus with hyperglycemia Status: Acute Assessment and Plan: Accu-Cheks, sliding scale insulin, A1c 6.8 Diabetic diet Blood glucose reviewed 08/10 (2) Morbid obesity with BMI of 60.0-69.9, adult: Code(s): E66.01 - Morbid (severe) obesity due to excess calories; Z68.44 - Body mass index [BMI] 60.0-69.9, adult Status: Acute (3) MINA (acute kidney injury): Code(s): N17.9 - Acute kidney failure, unspecified Status: Acute Assessment and Plan: Worsened with IV fluids, DC IV fluids and give Lasix x1, monitor (4) Cellulitis: Qualifiers: Site of cellulitis: other site Qualified Code(s): L03.818 - Cellulitis of other sites Code(s): L03.90 - Cellulitis, unspecified Status: Acute Assessment and Plan: IV antibiotics, wound care consult pending Continue vanc, Rocephin and Flagyl (5) Hyponatremia: Code(s): E87.1 - Hypo-osmolality and hyponatremia Status: Acute Assessment and Plan: Likely hypervolemic, monitor with Lasix (6) Effusion, left knee: Code(s): M25.462 - Effusion, left knee Status: Acute Assessment and Plan: Check knee x-ray, Orthopedic surgery consultation for possible aspiration of effusion Plan DVT prophylaxis with SCDs GI prophylaxis not indicated Code status full code Subjective Date/time seen: 08/10/23 14:41 Interval history: 63-year-old female with history of obesity presenting with weakness and fatigue and currently being treated for diffuse cellulitis of her inguinal folds and pannus. No overnight events noted. No chest pain or shortness of breath. No nausea, vomiting or diarrhea. No fevers or chills. She states she feels much better today than yesterday. She is complaining of some of left knee swelling. Review of Systems Review of Systems: 12 point review of systems was assessed and was negative except as noted in the HPI Exam Narrative: General: No acute distress, alert and oriented per baseline HEENT: Atraumatic, normocephalic, mucous membranes moist CV: Regular rate and rhythm, S1, S2 Lungs: Scattered expiratory wheezes noted, moderate air entry throughout Abdomen: Soft, nontender, nondistended Extremities: Normal to inspection, significant edema of lower extremities, left knee effusion noted, wounds less erythematous today Psych: Euthymic, normal affect Objective Data Vital Signs Vital Signs: Vital Signs - 24 hr 08/09/23 14:45 08/09/23 19:49 08/10/23 00:00 Temperature 97.2 F L 97.3 F L 98.3 F Pulse Rate 119 H 87 112 H Respiratory Rate 20 18 16 Blood Pressure 117/97 H 105/68 97/70 L Pulse Oximetry 92 92 92 Oxygen Delivery 08/10/23 04:00 08/09/23 22:05 08/10/23 08:49 Temperature 98.3 F 97.1 F L Pulse Rate 67 82 Respiratory Rate 16 18 Blood Pressure 111/61 101/54 L Pulse Oximetry 90 93 Oxygen Delivery Room Air 08/10/23 08:00 Temperature Pulse Rate Respiratory Rate Blood Pressure Pulse Oximetry Oxygen Delivery Room Air Intake/Output Intake/Output: Intake & Output 08/07/23 08/08/23 08/09/23 08/10/23 23:59 23:59 23:59 23:59 Intake Total 1000 2710 1980 Output Total 228 618 3188 Balance 900 1810 280 Meds/Results Medications: Active Medications Generic Name Dose Route Start Last Admin Trade Name Freq PRN Reason Stop Dose Admin Acetaminophen 650 mg 08/09/23 05:20 08/10/23 08:40 Acetaminophen 325 Mg Tablet PO 650 mg Q4H PRN Administration Mild Pain (1-3) or Fever Al Hydrox/Mg Hydrox/Simethicone 30 ml 08/09/23 05:20 Mag Hydrox/Al Hydrox/Simeth 30 Ml Udc PO QID PRN Dyspepsia Atorvastatin Calcium 40 mg 08/09/23 09:00 08/10/23 08:40 Atorvastatin 40 Mg Tablet PO 40 mg DAILY FAHAD Administration Citalopram Hydrobromide 40
[2023-08-10] MEDS: FUROSEMIDE INJ 40 MG/4 ML VIAL IV PUSH (14:58)
[2023-08-10] MEDS: cefTRIAXone 2 GM/NS 100 ML 2 GM/100 ML BAG IVPB (17:35)
[2023-08-10 17:42] LABS: Glucose Point of Care 171 mg/dl (65-105)
[2023-08-10] MEDS: IPRATROPIUM BR 0.02% INH SOLN 0.5 MG/2.5 ML VIAL INHALATION (19:45)
[2023-08-10] MEDS: ALBUTEROL SULFATE NEB 2.5 MG/3 ML INH INHALATION (19:45)
[2023-08-10 20:47] LABS: Glucose Point of Care 207 mg/dl (65-105)
[2023-08-10] MEDS: oxyCODONE HCL (*CRX) 2.5 MG TAB IR PO (21:28)
[2023-08-10] MEDS: rOPINIRole HCL 1 MG TABLET 3 MG PO (21:28)
[2023-08-11] VITALS (16 sets, daily range): BP systolic 101–153; BP diastolic 50–88; PULSE 88–113; RESP 18–22; TEMP 36.2–37.4; O2SAT 90–96; BMI 68.0
[2023-08-11] MEDS: IPRATROPIUM BR 0.02% INH SOLN 0.5 MG/2.5 ML VIAL INHALATION ×4 (01:06→20:55)
[2023-08-11] MEDS: ALBUTEROL SULFATE NEB 2.5 MG/3 ML INH INHALATION ×4 (01:06→20:55)
[2023-08-11] MEDS: metroNIDAZOLE 250 MG TABLET 500 MG PO ×2 (05:26→14:09)
[2023-08-11 05:46] LABS: Basophils Absolute Auto 0.1 K/mm3 (0.0-0.1); Eosinophils Percent Auto 0.4 % (0-4.4); Hemoglobin 12.6 g/dL (12.0-15.0); Immature Granulocyte Absolute 0.04 K/mm3 (0.00-0.031); Immature Granulocyte Percent A 0.5 % (0-0.5); Lymphocytes Absolute Auto 2.34 K/mm3 (0.9-3.2); Lymphocytes Percent Auto 31.8 % (18.3-44.2); Mean Corpuscular HGB Conc 32.3 g/dl (32-36); Mean Corpuscular Hemoglobin 28.2 pg (26-34); Mean Corpuscular Volume 87.2 fl (80-100); Mean Platelet Volume 9.7 fl (7.4-10.4); Monocytes Absolute Auto 0.5 K/mm3 (0.1-0.6); Monocytes Percent Auto 6.4 % (2.6-8.5); Neutrophils Absolute Auto 4.4 K/mm3 (1.3-6.7); Neutrophils Percent Auto 59.9 % (45.5-73.1); Platelet Count Result 220 k/mm3 (150-375); Red Blood Count 4.47 M/mm3 (4.2-5.4); Red Cell Distribution Width 15.4 % (11.5-14.5); White Blood Count 7.4 K/mm3 (4.5-10.0)
[2023-08-11 05:55] LABS: Alanine Aminotransferase 17 U/L (6-35); Albumin Level 2.8 g/dL (3.5-5.1); Alkaline Phosphatase 89 U/L (38-126); Anion Gap 4 mmol/L (8-16); Aspartate Amino Transferase 22 U/L (14-36); Bilirubin,Total 0.4 mg/dL (0.2-1.3); Blood Urea Nitrogen 27 mg/dL (7-17); Calcium 7.6 mg/dL (8.4-10.2); Carbon Dioxide 27 mmol/L (22-30); Chloride 99 mmol/L (98-107); Estimated CRCL calculation 69 ml/min; Estimated Glomerular Filt Rate 46; Glucose 184 mg/dL (65-110); Potassium 4.6 mmol/L (3.4-5.0); Sodium 130 mmol/L (137-145)
[2023-08-11 08:33] LABS: Glucose Point of Care 168 mg/dl (65-105)
--- NOTE | 2023-08-11 08:56 | PM.CNOR ---
Assessment and Plan Assessment and plan (1) Degenerative joint disease of knee: Qualifiers: Laterality: left Osteoarthritis type: primary Qualified Code(s): M17.12 - Unilateral primary osteoarthritis, left knee Code(s): M17.9 - Osteoarthritis of knee, unspecified Status: Acute Assessment and Plan: History, exam and radiographs reviewed with the patient. Radiographs reveal severe, [id number], left knee DJD. Mildly palpable left knee joint effusion. Patient is able to actively and passively bend the left knee however she has limited mobility due to morbid obesity. Patient is nonambulatory at baseline. Patient would ultimately benefit from a total knee replacement however she is not a candidate due to her morbid obesity. There is no significant concern for knee joint infection at this time given lack of erythema and lack severe pain with active and passive range of motion. Aspiration of left knee joint effusion would be an option however patient is not a candidate for a cortisone injection due to her current active cellulitis and IV antibiotic treatment. Therefore, effusion would likely return. Would recommend oral anti-inflammatories, ice and activity as tolerated. The patient is on meloxicam at home however this medication is currently held. This could be the cause of her increasing pain. Resuming or new medication regimen deferred to hospitalist given acute kidney injury. Thank you for allowing us to assist in the care of this patient. She may follow up in our outpatient orthopedic clinic for consideration of cortisone injections for pain pending complete resolution of active infection. (2) Diabetes mellitus with hyperglycemia: Code(s): E11.65 - Type 2 diabetes mellitus with hyperglycemia Status: Acute (3) Morbid obesity with BMI of 60.0-69.9, adult: Code(s): E66.01 - Morbid (severe) obesity due to excess calories; Z68.44 - Body mass index [BMI] 60.0-69.9, adult Status: Acute Assessment and Plan: The patient is not a candidate for surgical intervention at this time due to a BMI greater than 40. Current BMI is 68%. (4) Cellulitis of groin: Code(s): L03.314 - Cellulitis of groin Status: Acute Assessment and Plan: Currently undergoing IV antibiotic treatment and wound care daily. (5) MINA (acute kidney injury): Code(s): N17.9 - Acute kidney failure, unspecified Status: Acute Plan Reviewed history, exam, labs and radiographic findings with attending physician, Dr. Hope. Agrees with current plan as indicated above. Advises against cortisone injections at this time given active infection. History of Present Illness HPI Consult date: 08/11/23 Chief complaint: cellulitis, MINA, frequent falls Narrative: 63-year-old female admitted with inguinal cellulitis, MINA and frequent falls. Orthopedic consult requested for patient's complaints of left knee pain and swelling. Radiographs of the left knee reveals severe, [id number], left knee DJD. Patient reports chronic bilateral knee pain. She does not see an orthopedist for her pain. She does not ambulate at baseline. She utilizes a motorized scooter. Review of Systems Review of Systems: All systems reviewed & are unremarkable except as noted in HPI and below PMFSH Past Medical History Medical History (Updated 08/11/23 @ 09:10 by ROBERT Cabrera) Cellulitis of groin Degenerative joint disease of knee Diabetes mellitus with hyperglycemia Morbid obesity with BMI of 60.0-69.9, adult Family History Family History Father Acute myocardial infarction Hypertension Grandparent Chronic obstructive pulmonary disease Diabetes mellitus Mother Congestive heart failure Diabetes mellitus Hypertension Other Leukemia Social History Social History Smoking packs per day: 1 Urszula
[2023-08-11] MEDS: CITALOPRAM HYDROBROMIDE 20 MG TABLET 40 MG PO (08:58)
[2023-08-11] MEDS: GABAPENTIN 400 MG CAPSULE 800 MG PO ×3 (08:58→17:11)
[2023-08-11] MEDS: lisinopriL 10 MG TABLET 30 MG PO (08:58)
[2023-08-11] MEDS: DOCUSATE SODIUM 100 MG CAPSULE PO (08:58)
[2023-08-11] MEDS: ENOXAPARIN 30 MG/0.3 ML SYRINGE SUB-Q ×2 (08:58→20:41)
[2023-08-11] MEDS: FAMOTIDINE 20 MG TABLET 40 MG PO (08:59)
[2023-08-11] MEDS: oxyBUTYnin CHLORIDE 5 MG TABLET PO (08:59)
[2023-08-11] MEDS: TOLNAFTATE 1% POWDER 45 GM BTL 1 APPLIC TOPICAL ×2 (08:59→20:41)
[2023-08-11] MEDS: ATORVASTATIN 40 MG TABLET PO (08:59)
[2023-08-11] MEDS: NORTRIPTYLINE HCL 25 MG CAPSULE PO ×3 (08:59→17:11)
[2023-08-11] MEDS: PRIMIDONE 250 MG TABLET PO ×2 (08:59→17:11)
--- NOTE | 2023-08-11 11:36 | PM.IMPN ---
Progress Note: A&P Assessment and Plan (1) Cellulitis: Qualifiers: Site of cellulitis: other site Qualified Code(s): L03.818 - Cellulitis of other sites Code(s): L03.90 - Cellulitis, unspecified Status: Acute Assessment and Plan: IV antibiotics, wound care consult appreciated Continue vanc, Rocephin and Flagyl, started 08/09 Blood and wound cultures pending PCT 0.2, CRP improving from 21.5 to 9 (2) MINA (acute kidney injury): Code(s): N17.9 - Acute kidney failure, unspecified Status: Acute Assessment and Plan: Improved with lasix x 1 08/11: Monitor off IVF and off lasix (3) Effusion, left knee: Code(s): M25.462 - Effusion, left knee Status: Acute Assessment and Plan: Knee x-ray reviewed, moderate knee effusion, severe OA noted, consider cortisone injection when infeciton resolved Orthopedic surgery consultation appreciated, recommended anti-inflammatories, ice and WBAT (4) Hyponatremia: Code(s): E87.1 - Hypo-osmolality and hyponatremia Status: Acute Assessment and Plan: Improving after lasix, monitor off IVF and off lasix, consider another one time dose lasix if needed (5) Diabetes mellitus with hyperglycemia: Code(s): E11.65 - Type 2 diabetes mellitus with hyperglycemia Status: Acute Assessment and Plan: Accu-Cheks, sliding scale insulin, A1c 6.8 Diabetic diet Blood glucose reviewed 08/11 (6) Morbid obesity with BMI of 60.0-69.9, adult: Code(s): E66.01 - Morbid (severe) obesity due to excess calories; Z68.44 - Body mass index [BMI] 60.0-69.9, adult Status: Acute Plan DVT prophylaxis with lovenox GI prophylaxis with pepcid Code status full code Subjective Date/time seen: 08/11/23 11:36 Interval history: 63-year-old female with history of obesity presenting with weakness and fatigue and currently being treated for diffuse cellulitis of her inguinal folds and pannus. No overnight events noted. No chest pain or shortness of breath. No nausea, vomiting or diarrhea. No fevers or chills. Continues to feel better, less pain in knee. Review of Systems Review of Systems: 12 point review of systems was assessed and was negative except as noted in the HPI Exam Narrative: General: No acute distress, alert and oriented per baseline HEENT: Atraumatic, normocephalic, mucous membranes moist CV: Regular rate and rhythm, S1, S2 Lungs: Improved air entry, no wheezing Abdomen: Soft, nontender, nondistended Extremities: Normal to inspection, significant edema of lower extremities, left knee effusion noted, wounds less erythematous Psych: Euthymic, normal affect Objective Data Vital Signs Vital Signs: Vital Signs - 24 hr 08/10/23 15:59 08/10/23 18:39 08/10/23 19:34 Temperature 97.8 F 97.1 F L 97.1 F L Pulse Rate 85 78 92 Respiratory Rate 18 16 16 Blood Pressure 112/85 125/65 123/64 Pulse Oximetry 93 96 95 Oxygen Delivery 08/10/23 19:47 08/10/23 19:54 08/10/23 19:54 Temperature Pulse Rate 100 100 101 H Respiratory Rate 20 18 20 Blood Pressure Pulse Oximetry 93 Oxygen Delivery Room Air 08/10/23 20:00 08/11/23 00:00 08/11/23 01:07 Temperature 97.4 F L Pulse Rate 105 H 103 H Respiratory Rate 18 20 Blood Pressure 141/81 H Pulse Oximetry 91 Oxygen Delivery Room Air 08/11/23 01:13 08/11/23 04:00 08/11/23 08:05 Temperature 98.0 F Pulse Rate 100 88 92 Respiratory Rate 20 18 20 Blood Pressure 101/63 Pulse Oximetry 93 Oxygen Delivery 08/11/23 08:08 08/11/23 08:22 08/11/23 09:05 Temperature 97.1 F L Pulse Rate 92 96 90 Respiratory Rate 20 20 18 Blood Pressure 131/57 L Pulse Oximetry 91 92 Oxygen Delivery Room Air Intake/Output Intake/Output: Intake & Output 08/08/23 08/09/23 08/10/23 08/11/23 23:59 23:59 23:59 23:59 Intake Total 1000 2710 4060 120 Output Total 268 436 0311 200
[2023-08-11 12:05] LABS: Glucose Point of Care 189 mg/dl (65-105)
[2023-08-11] MEDS: oxyCODONE HCL (*CRX) 2.5 MG TAB IR PO ×3 (12:45→20:41)
[2023-08-11 17:01] LABS: Glucose Point of Care 161 mg/dl (65-105)
[2023-08-11] MEDS: AMOXICILLIN/CLAVULANATE K 875-125 MG TAB 1 TABLET PO (20:41)
[2023-08-11] MEDS: DOXYCYCLINE HYCLATE 100 MG TABLET PO (20:41)
[2023-08-11] MEDS: rOPINIRole HCL 1 MG TABLET 3 MG PO (20:41)
[2023-08-11 21:08] LABS: Glucose Point of Care 197 mg/dl (65-105)
[2023-08-12] VITALS (20 sets, daily range): BP systolic 110–141; BP diastolic 45–90; PULSE 60–107; RESP 18–28; TEMP 36.3–37.6; O2SAT 84–99
[2023-08-12] MEDS: ALBUTEROL SULFATE NEB 2.5 MG/3 ML INH INHALATION ×4 (02:30→19:54)
[2023-08-12] MEDS: IPRATROPIUM BR 0.02% INH SOLN 0.5 MG/2.5 ML VIAL INHALATION ×4 (02:30→19:53)
[2023-08-12 06:18] LABS: Basophils Absolute Auto 0.1 K/mm3 (0.0-0.1); Basophils Percent Auto 0.6 % (0.2-1.2); Immature Granulocyte Percent A 0.9 % (0-0.5); Lymphocytes Absolute Auto 3.25 K/mm3 (0.9-3.2); Lymphocytes Percent Auto 30.7 % (18.3-44.2); Mean Corpuscular HGB Conc 32.5 g/dl (32-36); Mean Corpuscular Hemoglobin 27.8 pg (26-34); Mean Corpuscular Volume 85.7 fl (80-100); Mean Platelet Volume 9.9 fl (7.4-10.4); Monocytes Absolute Auto 0.7 K/mm3 (0.1-0.6); Monocytes Percent Auto 6.2 % (2.6-8.5); Neutrophils Absolute Auto 6.5 K/mm3 (1.3-6.7); Neutrophils Percent Auto 61.6 % (45.5-73.1); Platelet Count Result 249 k/mm3 (150-375); Red Blood Count 4.67 M/mm3 (4.2-5.4); Red Cell Distribution Width 15.1 % (11.5-14.5); White Blood Count 10.6 K/mm3 (4.5-10.0)
[2023-08-12 06:31] LABS: Alanine Aminotransferase 25 U/L (6-35); Alkaline Phosphatase 99 U/L (38-126); Anion Gap 3 mmol/L (8-16); Aspartate Amino Transferase 49 U/L (14-36); Bilirubin,Total 0.6 mg/dL (0.2-1.3); Blood Urea Nitrogen 18 mg/dL (7-17); Carbon Dioxide 25 mmol/L (22-30); Chloride 101 mmol/L (98-107); Estimated CRCL calculation 75 ml/min; Estimated Glomerular Filt Rate 50; Glucose 215 mg/dL (65-110); Potassium 4.7 mmol/L (3.4-5.0); Sodium 129 mmol/L (137-145)
--- NOTE | 2023-08-12 06:57 | P.CDI_ITS ---
CDI Query Clarification Request Please clarify if there is a cause and effect relationship between cellulitis and Diabetes Mellitus. * There is a cause and effect relationship between cellulitis and Diabetes Mellitus. * There is not a cause and effect relationship between Cellulitis and Diabetes Mellitus. * Unknown if there is a cause and effect relationship between Cellulitis and Diabetes Mellitus. <Karla Crowe RN - Last Filed: 08/12/23 07:01> Clarified Diagnosis Clarified Diagnosis: There is a cause and effect relationship between cellulitis and Diabetes Mellitus. <Maria Isabel Patiño DO - Last Filed: 08/18/23 10:05>
[2023-08-12 08:45] LABS: Glucose Point of Care 213 mg/dl (65-105)
[2023-08-12] MEDS: GABAPENTIN 400 MG CAPSULE 800 MG PO ×3 (09:18→18:11)
[2023-08-12] MEDS: TOLNAFTATE 1% POWDER 45 GM BTL 1 APPLIC TOPICAL ×2 (09:18→21:14)
[2023-08-12] MEDS: DOCUSATE SODIUM 100 MG CAPSULE PO ×2 (09:19→18:11)
[2023-08-12] MEDS: NORTRIPTYLINE HCL 25 MG CAPSULE PO ×3 (09:19→18:11)
[2023-08-12] MEDS: MELOXICAM 7.5 MG TABLET 15 MG PO (09:19)
[2023-08-12] MEDS: lisinopriL 10 MG TABLET 30 MG PO (09:19)
[2023-08-12] MEDS: DOXYCYCLINE HYCLATE 100 MG TABLET PO ×2 (09:20→21:14)
[2023-08-12] MEDS: ATORVASTATIN 40 MG TABLET PO (09:20)
[2023-08-12] MEDS: FAMOTIDINE 20 MG TABLET 40 MG PO (09:20)
[2023-08-12] MEDS: oxyBUTYnin CHLORIDE 5 MG TABLET PO (09:20)
[2023-08-12] MEDS: CITALOPRAM HYDROBROMIDE 20 MG TABLET 40 MG PO (09:21)
[2023-08-12] MEDS: AMOXICILLIN/CLAVULANATE K 875-125 MG TAB 1 TABLET PO ×2 (09:21→21:14)
[2023-08-12] MEDS: PRIMIDONE 250 MG TABLET PO ×2 (09:22→18:11)
[2023-08-12] MEDS: INSULIN ASPART (*BKC) 100 UNITS/ML SUB-Q ×2 (09:23→18:13)
--- NOTE | 2023-08-12 09:46 | PM.IMPN ---
Progress Note: A&P Assessment and Plan (1) Cellulitis: Qualifiers: Site of cellulitis: other site Qualified Code(s): L03.818 - Cellulitis of other sites Code(s): L03.90 - Cellulitis, unspecified Status: Acute Assessment and Plan: IV antibiotics, wound care consult appreciated Continue vanc, Rocephin and Flagyl, started 08/09 Blood and wound cultures pending PCT 0.2, CRP improving from 21.5 to 9 08/11: de-escalated to augmentin + doxy 08/12: leuk increased but diff remains unchanged, slightly improved, monitor one more day on oral abx before making changes, appears to be clinically improving, d/c in am if leuk resolves and symptoms continue to improve (2) MINA (acute kidney injury): Code(s): N17.9 - Acute kidney failure, unspecified Status: Acute Assessment and Plan: Improved with lasix x 1 08/11: Monitor off IVF and off lasix 08/12: improved off IVF + lasix, monitor (3) Effusion, left knee: Code(s): M25.462 - Effusion, left knee Status: Acute Assessment and Plan: Knee x-ray reviewed, moderate knee effusion, severe OA noted, consider cortisone injection when infeciton resolved Orthopedic surgery consultation appreciated, recommended anti-inflammatories, ice and WBAT Refer outpatient for aspiration and cortisone injection (4) Hyponatremia: Code(s): E87.1 - Hypo-osmolality and hyponatremia Status: Acute Assessment and Plan: Slightly worse than yesterday, creat improved, monitor, appears to be near baseline, asymptomatic (5) Diabetes mellitus with hyperglycemia: Code(s): E11.65 - Type 2 diabetes mellitus with hyperglycemia Status: Acute Assessment and Plan: Accu-Cheks, sliding scale insulin, A1c 6.8 Diabetic diet Blood glucose reviewed 08/12 (6) Morbid obesity with BMI of 60.0-69.9, adult: Code(s): E66.01 - Morbid (severe) obesity due to excess calories; Z68.44 - Body mass index [BMI] 60.0-69.9, adult Status: Acute Plan DVT prophylaxis with lovenox GI prophylaxis with pepcid Code status full code Subjective Date/time seen: 08/12/23 09:46 Interval history: 63-year-old female with history of obesity presenting with weakness and fatigue and currently being treated for diffuse cellulitis of her inguinal folds and pannus. No overnight events noted. No chest pain or shortness of breath. No nausea, vomiting or diarrhea. No fevers or chills. Much better than yesterday, complaining of some neuropathy pain in her feet that she gets at baseline, slightly worse than usual. Review of Systems Review of Systems: 12 point review of systems was assessed and was negative except as noted in the HPI Exam Narrative: General: No acute distress, alert and oriented per baseline HEENT: Atraumatic, normocephalic, mucous membranes moist CV: Regular rate and rhythm, S1, S2 Lungs: Improved air entry, no wheezing Abdomen: Soft, nontender, nondistended Extremities: Normal to inspection, significant edema of lower extremities, left knee effusion improved, wounds much improved, no drainage Psych: Euthymic, normal affect Objective Data Vital Signs Vital Signs: Vital Signs - 24 hr 08/11/23 13:41 08/11/23 13:49 08/11/23 14:00 Temperature 97.4 F L Pulse Rate 93 93 94 Respiratory Rate 18 20 20 Blood Pressure 153/88 H Pulse Oximetry 94 Oxygen Delivery Oxygen Flow Rate Fraction of Inspired Oxygen 08/11/23 10:00 08/11/23 18:38 08/11/23 19:47 Temperature 97.6 F 99.3 F Pulse Rate 108 H 113 H Respiratory Rate 20 18 Blood Pressure 129/50 L 149/71 H Pulse Oximetry 92 96 Oxygen Delivery Room Air Oxygen Flow Rate Fraction of Inspired Oxygen 08/11/23 20:45 08/11/23 20:55 08/11/23 21:00 Temperature Pulse Rate 99 95 99 Respiratory Rate 22 H 22 H Blood Pressure Pulse Oximetry 90 Oxygen Delivery Room Air Oxygen Flow Rate Fracti
[2023-08-12 11:59] LABS: Glucose Point of Care 186 mg/dl (65-105)
[2023-08-12] MEDS: ENOXAPARIN 30 MG/0.3 ML SYRINGE SUB-Q ×2 (14:05→21:14)
[2023-08-12 17:19] LABS: Glucose Point of Care 204 mg/dl (65-105)
[2023-08-12] MEDS: rOPINIRole HCL 1 MG TABLET 3 MG PO (21:14)
[2023-08-12 21:24] LABS: Glucose Point of Care 214 mg/dl (65-105)
[2023-08-13] VITALS (16 sets, daily range): BP systolic 102–133; BP diastolic 57–94; PULSE 88–107; RESP 18–26; TEMP 36.3–36.9; O2SAT 92–96
[2023-08-13] MEDS: IPRATROPIUM BR 0.02% INH SOLN 0.5 MG/2.5 ML VIAL INHALATION ×4 (01:13→20:09)
[2023-08-13] MEDS: ALBUTEROL SULFATE NEB 2.5 MG/3 ML INH INHALATION ×4 (01:14→20:09)
[2023-08-13] MEDS: oxyCODONE HCL (*CRX) 2.5 MG TAB IR PO ×2 (03:54→18:23)
[2023-08-13 06:47] LABS: Basophils Absolute Auto 0.1 K/mm3 (0.0-0.1); Basophils Percent Auto 0.6 % (0.2-1.2); Eosinophils Percent Auto 0.2 % (0-4.4); Hematocrit 39.8 % (37.0-47.0); Hemoglobin 12.6 g/dL (12.0-15.0); Immature Granulocyte Absolute 0.15 K/mm3 (0.00-0.031); Immature Granulocyte Percent A 1.5 % (0-0.5); Lymphocytes Absolute Auto 2.77 K/mm3 (0.9-3.2); Lymphocytes Percent Auto 28.5 % (18.3-44.2); Mean Corpuscular HGB Conc 31.7 g/dl (32-36); Mean Corpuscular Hemoglobin 27.6 pg (26-34); Mean Corpuscular Volume 87.3 fl (80-100); Mean Platelet Volume 10.3 fl (7.4-10.4); Monocytes Absolute Auto 0.7 K/mm3 (0.1-0.6); Monocytes Percent Auto 7.4 % (2.6-8.5); Neutrophils Percent Auto 61.8 % (45.5-73.1); Platelet Count Result 248 k/mm3 (150-375); Red Blood Count 4.56 M/mm3 (4.2-5.4); Red Cell Distribution Width 15.6 % (11.5-14.5); White Blood Count 9.7 K/mm3 (4.5-10.0)
[2023-08-13 06:54] LABS: Alanine Aminotransferase 39 U/L (6-35); Alkaline Phosphatase 98 U/L (38-126); Anion Gap 4 mmol/L (8-16); Aspartate Amino Transferase 83 U/L (14-36); Bilirubin,Total 0.7 mg/dL (0.2-1.3); Blood Urea Nitrogen 23 mg/dL (7-17); Calcium 7.9 mg/dL (8.4-10.2); Carbon Dioxide 28 mmol/L (22-30); Chloride 99 mmol/L (98-107); Estimated CRCL calculation 75 ml/min; Estimated Glomerular Filt Rate 50; Glucose 198 mg/dL (65-110); Potassium 4.6 mmol/L (3.4-5.0); Sodium 131 mmol/L (137-145)
[2023-08-13 08:34] LABS: Glucose Point of Care 202 mg/dl (65-105)
[2023-08-13] MEDS: DOXYCYCLINE HYCLATE 100 MG TABLET PO ×2 (08:55→21:19)
[2023-08-13] MEDS: oxyBUTYnin CHLORIDE 5 MG TABLET PO (08:55)
[2023-08-13] MEDS: NORTRIPTYLINE HCL 25 MG CAPSULE PO ×3 (08:55→18:12)
[2023-08-13] MEDS: ATORVASTATIN 40 MG TABLET PO (08:55)
[2023-08-13] MEDS: MELOXICAM 7.5 MG TABLET 15 MG PO (08:56)
[2023-08-13] MEDS: GABAPENTIN 400 MG CAPSULE 800 MG PO ×3 (08:56→18:11)
[2023-08-13] MEDS: CITALOPRAM HYDROBROMIDE 20 MG TABLET 40 MG PO (08:56)
[2023-08-13] MEDS: lisinopriL 10 MG TABLET 30 MG PO (08:56)
[2023-08-13] MEDS: DOCUSATE SODIUM 100 MG CAPSULE PO ×2 (08:57→18:11)
[2023-08-13] MEDS: PRIMIDONE 250 MG TABLET PO ×2 (08:57→18:12)
[2023-08-13] MEDS: FAMOTIDINE 20 MG TABLET 40 MG PO (08:57)
[2023-08-13] MEDS: INSULIN ASPART (*BKC) 100 UNITS/ML SUB-Q ×3 (08:58→18:12)
[2023-08-13] MEDS: AMOXICILLIN/CLAVULANATE K 875-125 MG TAB 1 TABLET PO ×2 (08:58→21:19)
[2023-08-13] MEDS: ENOXAPARIN 30 MG/0.3 ML SYRINGE SUB-Q ×2 (08:58→21:19)
[2023-08-13] MEDS: TOLNAFTATE 1% POWDER 45 GM BTL 1 APPLIC TOPICAL ×2 (09:01→21:19)
[2023-08-13 12:45] LABS: Glucose Point of Care 214 mg/dl (65-105)
--- NOTE | 2023-08-13 14:02 | PM.IMPN ---
Progress Note: A&P Assessment and Plan (1) Cellulitis: Qualifiers: Site of cellulitis: other site Qualified Code(s): L03.818 - Cellulitis of other sites Code(s): L03.90 - Cellulitis, unspecified Status: Acute Assessment and Plan: Patient with erythema and cellulitis to the inguinal folds. She was started on IV antibiotics. Wound care consult appreciated. BCx NGTD WCx MRSA MRSA nasal swab positive. Started on vanc, Rocephin and Flagyl 08/09 PCT 0.2, CRP improving from 21.5 to 9. WBC essentially normal. De-escalated to augmentin + doxycycline 08/11 (2) MINA (acute kidney injury): Code(s): N17.9 - Acute kidney failure, unspecified Status: Acute Assessment and Plan: MINA with Cr up to 2.3. Normal baseline in 2020 (Cr 0.5). Treated with IVF and lasix prn. Cr trended down to 1.1 and stable. Wheezing so eliana check CXR to exclude fluid overload. Lasix 20mg IV once. Follow (3) Effusion, left knee: Code(s): M25.462 - Effusion, left knee Status: Acute Assessment and Plan: Patient with left knee pain and swelling. Knee x-ray reviewed showing moderate knee effusion and severe OA Orthopedic surgery consultation appreciated, recommended anti-inflammatories, ice and WBAT Refer outpatient for aspiration and cortisone injection once infection clears. Continue PT/OT (4) Hyponatremia: Code(s): E87.1 - Hypo-osmolality and hyponatremia Status: Acute Assessment and Plan: Sodium low but stable 128-131 range. Monitor (5) Diabetes mellitus with hyperglycemia: Code(s): E11.65 - Type 2 diabetes mellitus with hyperglycemia Status: Acute Assessment and Plan: A1c 6.8. The patient's blood glucose was reviewed on 08/13 Glucose poorly controlled. Continue AccuCheks covering with sliding scale. Hypoglycemia protocol available as needed. Add back metformin (6) Morbid obesity with BMI of 60.0-69.9, adult: Code(s): E66.01 - Morbid (severe) obesity due to excess calories; Z68.44 - Body mass index [BMI] 60.0-69.9, adult Status: Acute Assessment and Plan: Contributes to her other medical problems Plan DVT prophylaxis with lovenox GI prophylaxis with pepcid Code status full code Subjective Date/time seen: 08/13/23 14:02 Interval history: 63-year-old female with history of obesity presenting with weakness and fatigue and currently being treated for diffuse cellulitis of her inguinal folds and pannus. Assuming care. Chart reviewed. Patient feels ?blah?. She denies any suicidal or homicidal ideation. She also complains of feeling that her legs are ?tight?. She does not wear oxygen at home. She denies chest pain or shortness of breath. No dyspnea on exertion. Patient is mostly in a wheelchair. She cannot stand. She does scoot herself to wheelchair from bed at home. She has been wheezing. Exam Narrative: AF 97.6 128/83 100 20 94% ra Gen - NARD sitting up in a chair Chest -expiratory wheezes diffusely CV - RRR S1/S2 Abd -soft. Obese. Nontender. Ext -trace-1+ pitting and nonpitting pedal edema. 2+ DP pulses. Neuro - Alert and oriented. Nonfocal exam. Psych - Nml mood and affect Skin - Warm and dry. Acrocyanosis bilateral feet. Wounds limited view due to being up in the chair Objective Data Vital Signs Vital Signs: Vital Signs - 24 hr 08/12/23 14:24 08/12/23 18:20 08/12/23 19:54 Temperature 97.5 F L Pulse Rate 106 H 102 H Respiratory Rate 18 22 H Blood Pressure 141/90 H Pulse Oximetry 98 Oxygen Delivery Room Air Oxygen Flow Rate 08/12/23 19:55 08/12/23 20:05 08/12/23 20:00 Temperature 97.6 F Pulse Rate 105 H 104 H Respiratory Rate 22 H 26 H Blood Pressure 110/55 L Pulse Oximetry 91 99 Oxygen Delivery Nasal Cannula Oxygen Flow Rate 2 08/13/23 00:00 08/12/23 21:15 08/13/23 01:14 Temperature 97.4 F L Pulse Rate 105 H 106 H
[2023-08-13] MEDS: FUROSEMIDE INJ 40 MG/4 ML VIAL 20 MG IV PUSH (15:44)
[2023-08-13 17:09] LABS: Glucose Point of Care 205 mg/dl (65-105)
[2023-08-13 21:03] LABS: Glucose Point of Care 237 mg/dl (65-105)
[2023-08-13] MEDS: rOPINIRole HCL 1 MG TABLET 3 MG PO (21:19)
[2023-08-14] VITALS (21 sets, daily range): BP systolic 102–147; BP diastolic 48–72; PULSE 88–105; RESP 16–24; TEMP 36.3–37.4; O2SAT 89–98
[2023-08-14] MEDS: ALBUTEROL SULFATE NEB 2.5 MG/3 ML INH INHALATION ×4 (02:50→20:10)
[2023-08-14] MEDS: IPRATROPIUM BR 0.02% INH SOLN 0.5 MG/2.5 ML VIAL INHALATION ×4 (02:50→20:10)
[2023-08-14 05:36] LABS: Basophils Absolute Auto 0.1 K/mm3 (0.0-0.1); Basophils Percent Auto 0.8 % (0.2-1.2); Eosinophils Absolute Auto 0.1 K/mm3 (0-0.3); Eosinophils Percent Auto 0.8 % (0-4.4); Hemoglobin 12.2 g/dL (12.0-15.0); Immature Granulocyte Absolute 0.19 K/mm3 (0.00-0.031); Immature Granulocyte Percent A 2.1 % (0-0.5); Lymphocytes Absolute Auto 2.96 K/mm3 (0.9-3.2); Lymphocytes Percent Auto 33.1 % (18.3-44.2); Mean Corpuscular HGB Conc 31.3 g/dl (32-36); Mean Corpuscular Hemoglobin 27.7 pg (26-34); Mean Corpuscular Volume 88.6 fl (80-100); Mean Platelet Volume 9.7 fl (7.4-10.4); Monocytes Absolute Auto 0.8 K/mm3 (0.1-0.6); Monocytes Percent Auto 8.8 % (2.6-8.5); Neutrophils Absolute Auto 4.9 K/mm3 (1.3-6.7); Neutrophils Percent Auto 54.4 % (45.5-73.1); Platelet Count Result 217 k/mm3 (150-375); Red Cell Distribution Width 15.6 % (11.5-14.5)
[2023-08-14 05:46] LABS: Alanine Aminotransferase 32 U/L (6-35); Albumin Level 2.9 g/dL (3.5-5.1); Alkaline Phosphatase 93 U/L (38-126); Anion Gap 5 mmol/L (8-16); Aspartate Amino Transferase 50 U/L (14-36); Bilirubin,Total 0.6 mg/dL (0.2-1.3); Blood Urea Nitrogen 26 mg/dL (7-17); Calcium 7.7 mg/dL (8.4-10.2); Carbon Dioxide 25 mmol/L (22-30); Chloride 99 mmol/L (98-107); Estimated CRCL calculation 75 ml/min; Estimated Glomerular Filt Rate 50; Glucose 181 mg/dL (65-110); Potassium 4.3 mmol/L (3.4-5.0); Sodium 129 mmol/L (137-145)
[2023-08-14 08:54] LABS: Glucose Point of Care 178 mg/dl (65-105)
[2023-08-14] MEDS: CITALOPRAM HYDROBROMIDE 20 MG TABLET 40 MG PO (09:04)
[2023-08-14] MEDS: ENOXAPARIN 30 MG/0.3 ML SYRINGE SUB-Q ×2 (09:04→21:00)
[2023-08-14] MEDS: FAMOTIDINE 20 MG TABLET 40 MG PO (09:04)
[2023-08-14] MEDS: DOCUSATE SODIUM 100 MG CAPSULE PO (09:04)
[2023-08-14] MEDS: DOXYCYCLINE HYCLATE 100 MG TABLET PO ×2 (09:04→21:00)
[2023-08-14] MEDS: AMOXICILLIN/CLAVULANATE K 875-125 MG TAB 1 TABLET PO ×2 (09:04→21:00)
[2023-08-14] MEDS: ATORVASTATIN 40 MG TABLET PO (09:04)
[2023-08-14] MEDS: MELOXICAM 7.5 MG TABLET 15 MG PO (09:05)
[2023-08-14] MEDS: NORTRIPTYLINE HCL 25 MG CAPSULE PO ×3 (09:05→17:17)
[2023-08-14] MEDS: GABAPENTIN 400 MG CAPSULE 800 MG PO ×3 (09:05→17:17)
[2023-08-14] MEDS: oxyBUTYnin CHLORIDE 5 MG TABLET PO (09:05)
[2023-08-14] MEDS: lisinopriL 10 MG TABLET 30 MG PO (09:05)
[2023-08-14] MEDS: TOLNAFTATE 1% POWDER 45 GM BTL 1 APPLIC TOPICAL ×2 (09:05→21:00)
[2023-08-14] MEDS: PRIMIDONE 250 MG TABLET PO ×2 (09:05→17:17)
[2023-08-14] MEDS: oxyCODONE HCL (*CRX) 2.5 MG TAB IR PO ×2 (10:28→14:32)
[2023-08-14 12:10] LABS: Glucose Point of Care 242 mg/dl (65-105)
[2023-08-14] MEDS: INSULIN ASPART (*BKC) 100 UNITS/ML SUB-Q ×2 (12:20→17:16)
--- NOTE | 2023-08-14 12:30 | PM.IMPN ---
Progress Note: A&P Assessment and Plan (1) Cellulitis: Qualifiers: Site of cellulitis: other site Qualified Code(s): L03.818 - Cellulitis of other sites Code(s): L03.90 - Cellulitis, unspecified Status: Acute Assessment and Plan: Patient with erythema and cellulitis to the right>left inguinal folds. Started on vanc, Rocephin and Flagyl 08/09. Wound care consult appreciated. BCx NGTD WCx MRSA MRSA nasal swab positive. PCT 0.2, CRP improving from 21.5 to 9. WBC normal. De-escalated to Augmentin + doxycycline 08/11. Continue current wound care (2) MINA (acute kidney injury): Code(s): N17.9 - Acute kidney failure, unspecified Status: Acute Assessment and Plan: MINA with Cr up to 2.3. Normal baseline in 2020 (Cr 0.5). Treated with IVF and Lasix prn. Cr trended down to 1.1 and stable; at baseline? Follow (3) Wheezing: Code(s): R06.2 - Wheezing Status: Acute Assessment and Plan: Wheezing noted on exam 08/13. CXR 08/13 showing airspace opacities in the mid and lower lung zones. CXR clear on 08/09. Lasix given once yesterday. UOP not accurate. Doubt PNA since on abx since admission. Underlying COPD? She was educated about the benefits of smoking cessation. Clarify if she is on inhalers at home. Continue nebulizer treatments. Steroids x1. Repeat Lasix once. Check Echo. Wean O2. Apnea link tonight. check ABG (4) Effusion, left knee: Code(s): M25.462 - Effusion, left knee Status: Acute Assessment and Plan: Patient with left knee pain and swelling. Knee x-ray reviewed showing moderate knee effusion and severe OA Orthopedic surgery consultation appreciated, recommended anti-inflammatories, ice and WBAT Refer outpatient for aspiration and cortisone injection once infection clears. Continue PT/OT (5) Hyponatremia: Code(s): E87.1 - Hypo-osmolality and hyponatremia Status: Acute Assessment and Plan: Sodium low but stable 128-131 range. Monitor (6) Diabetes mellitus with hyperglycemia: Code(s): E11.65 - Type 2 diabetes mellitus with hyperglycemia Status: Acute Assessment and Plan: A1c 6.8. The patient's blood glucose was reviewed on 08/14 Glucose poorly controlled. Continue AccuCheks covering with sliding scale. Hypoglycemia protocol available as needed. Add back metformin (7) Morbid obesity with BMI of 60.0-69.9, adult: Code(s): E66.01 - Morbid (severe) obesity due to excess calories; Z68.44 - Body mass index [BMI] 60.0-69.9, adult Status: Acute Assessment and Plan: Contributes to her other medical problems (8) Tobacco abuse: Code(s): Z72.0 - Tobacco use Status: Acute Assessment and Plan: Patient was educated about the benefits of smoking cessation Plan DVT prophylaxis with lovenox GI prophylaxis with pepcid Code status full code Subjective Date/time seen: 08/14/23 12:30 Interval history: 63-year-old female with history of obesity presenting with weakness and fatigue and currently being treated for diffuse cellulitis of her inguinal folds and pannus. She feels better. No CP or SOB. Denies cough or wheezing. No abd pain. She has inhalers at home and also PRN nebulizers (that she uses 1x/week). Left message for sister. Exam Narrative: AF 98.9 121/48 94 22 94% 1L Gen - NARD Chest - diffuse expiratory wheezes. nml RR CV - RRR S1/S2 Abd -soft. Obese. Nontender. Ext -trace pitting and nonpitting pedal edema Psych - Nml mood and affect Skin - Warm and dry. right inguinal groin fold red-santiago erythema with smaller area of excoriation. Objective Data Vital Signs Vital Signs: Vital Signs - 24 hr 08/13/23 13:00 08/13/23 13:10 08/13/23 16:00 Temperature 97.6 F Pulse Rate 97 100 88 Respiratory Rate 18 20 19 Blood Pressure 130/78 Pulse Oximetry 93 Oxygen Delivery Oxygen Flow Rate 08/13/23 2
[2023-08-14] MEDS: methylPREDNISolone SOD SUCC 125 MG VIAL 60 MG IV PUSH (12:56)
[2023-08-14] MEDS: FUROSEMIDE INJ 40 MG/4 ML VIAL 20 MG IV PUSH (12:57)
--- NOTE | 2023-08-14 13:28 | PC.NURSE ---
On 08/14/23, the student, [Gerardo Carl], provided care and completed [facility] documentation on this patient. I have reviewed the student's documentation and agree with the findings.
[2023-08-14 14:07] LABS: Alveolar/Arterial O2 Gradient 61.4 mmHg; Base Excess ABG 3.1 mEq/l (+/-2.0); Fractional Inspired Oxygen 24 %; HCO3 ABG 27.6 mEq/l (22.0-26.0); Oxygen Content ABG 17.9 %vol (16.0-22.0); Oxygen Saturation ABG 91.8 % (95.0-100.0); Oxyhemoglobin 90.5 % THb (90.0-100.0); PCO2 ABG 41.7 mmHg (35.0-45.0); PO2 ABG 60.1 mmHg (80.0-100.0); Total Hemoglobin 14.1 g/dL (12.0-18.0); pH ABG 7.438 (7.350-7.450)
[2023-08-14 14:08] LABS: Device NASAL CANNULA; Modified Allen's Test Pass; Site Drawn RIGHT RADIAL
[2023-08-14] MEDS: metFORMIN HCL 500 MG TABLET PO ×2 (14:32→17:17)
[2023-08-14 17:13] LABS: Glucose Point of Care 266 mg/dl (65-105)
[2023-08-14] MEDS: rOPINIRole HCL 1 MG TABLET 3 MG PO (21:00)
[2023-08-14 21:52] LABS: Glucose Point of Care 285 mg/dl (65-105)
[2023-08-15] VITALS (14 sets, daily range): BP systolic 105–134; BP diastolic 58–86; PULSE 75–99; RESP 16–20; TEMP 36.3–36.7; O2SAT 88–98
--- NOTE | 2023-08-15 | ECHO_ITS ---
Patient Info Name: Juliann Moody Age: 63 years : 1960 Gender: Female Ht: 63 in Wt: 383 lbs BSA: 2.91 m2 HR: 94 bpm BP: 121 / 48 mmHg Technical Quality: Poor Exam Date: 08/15/2023 2:24 PM Exam Location: [facility] Pulmonary Exam Room: 241 Patient Status: Inpatient Admit Date: 08/08/2023 Staff Ordering Physician: Nilton Anderson MD Loading Dock Hand: Kristen Elizabeth RDCS Attending Provider: Elkin Velez MD Exam Type: CA echo dop bubble study w con Study Info Indications - sob pulm edema Complete two-dimentional, color flow and Doppler transthoracic echocardiogram is performed with agitated saline and with contrast to opacify the left ventricle and to improve the delineation of the left ventricle endocardial borders. Contrast/Agitated Saline Contrast/Ag. Saline: Definity Amount: 1.00 ml Administered By: Nanda Dill RDCS Existing IV Access: Yes Reason for Poor Study: patient body habitus Summary 1. Definity contrast administered improved wall motion interpretation. 2. Left ventricular chamber dimension is normal. 3. Left ventricular systolic function is normal, estimated at 65-70%. 4. There is mild concentric increased left ventricular wall thickness. 5. The left ventricular diastolic function is grade I diastolic dysfunction. 6. E/e' 10 is mildly elevated. 7. There is mild aortic valve sclerosis. 8. The mitral valve has moderately calcified annulus. 9. No pulmonary hypertension, estimated pulmonary arterial systolic pressure is 28 mmHg. Left Ventricle E/e' 10 is mildly elevated. Definity contrast administered improved wall motion interpretation. Left ventricular chamber dimension is normal. Left ventricular systolic function is normal, estimated at 65-70%. There is mild concentric increased left ventricular wall thickness. The left ventricular diastolic function is grade I diastolic dysfunction. Right Ventricle Right ventricular systolic function is normal and with normal TAPSE 2.3 cm. Right ventricular chamber dimension is normal. Left Atria Left atrial chamber dimension is normal. Right Atria Right atrial chamber dimension is normal. Atrial Septum Agitated saline injection with and without valsalva maneuver opacified right side cardiac chambers without shunt to left side cardiac chambers. Intact interatrial septum visualized by 2D and agitated saline imaging. Aortic Valve The aortic valve is trileaflet. There is mild aortic valve sclerosis. There is no aortic valve stenosis. There is no aortic valve regurgitation. Pulmonic Valve There is no pulmonic regurgitation. Mitral Valve The mitral valve has moderately calcified annulus. There is no mitral valve stenosis. There is no mitral valve regurgitation. Tricuspid Valve There is no tricuspid valve regurgitation. No pulmonary hypertension, estimated pulmonary arterial systolic pressure is 28 mmHg. Pericardium/Pleural There is no pericardial effusion. Inferior Vena Cava Normal inferior vena cava with >50% collapse upon inspiration consistent with normal right atrial pressure, 5 mmHg. Aorta The aortic root size at the sinus of Valsalva is normal. Left Ventricular Outflow Tract Name Value Normal LVOT 2D LVOT Diameter 2.1 cm LVO
[2023-08-15 05:13] LABS: Basophils Absolute Auto 0.1 K/mm3 (0.0-0.1); Basophils Percent Auto 0.6 % (0.2-1.2); Eosinophils Absolute Auto 0.1 K/mm3 (0-0.3); Eosinophils Percent Auto 0.9 % (0-4.4); Hematocrit 39.8 % (37.0-47.0); Hemoglobin 12.7 g/dL (12.0-15.0); Immature Granulocyte Absolute 0.13 K/mm3 (0.00-0.031); Immature Granulocyte Percent A 1.5 % (0-0.5); Lymphocytes Absolute Auto 2.85 K/mm3 (0.9-3.2); Lymphocytes Percent Auto 33.4 % (18.3-44.2); Mean Corpuscular HGB Conc 31.9 g/dl (32-36); Mean Corpuscular Volume 87.7 fl (80-100); Mean Platelet Volume 9.7 fl (7.4-10.4); Monocytes Absolute Auto 0.8 K/mm3 (0.1-0.6); Monocytes Percent Auto 8.8 % (2.6-8.5); Neutrophils Absolute Auto 4.7 K/mm3 (1.3-6.7); Neutrophils Percent Auto 54.8 % (45.5-73.1); Platelet Count Result 223 k/mm3 (150-375); Red Blood Count 4.54 M/mm3 (4.2-5.4); Red Cell Distribution Width 15.6 % (11.5-14.5); White Blood Count 8.5 K/mm3 (4.5-10.0)
[2023-08-15] MEDS: ACETAMINOPHEN 325 MG TABLET 650 MG PO (06:20)
[2023-08-15 06:28] LABS: Alanine Aminotransferase 30 U/L (6-35); Alkaline Phosphatase 94 U/L (38-126); Anion Gap 2 mmol/L (8-16); Aspartate Amino Transferase 39 U/L (14-36); Bilirubin,Total 0.5 mg/dL (0.2-1.3); Blood Urea Nitrogen 29 mg/dL (7-17); Calcium 8.2 mg/dL (8.4-10.2); Carbon Dioxide 32 mmol/L (22-30); Chloride 97 mmol/L (98-107); Estimated CRCL calculation 75 ml/min; Estimated Glomerular Filt Rate 50; Glucose 156 mg/dL (65-110); Sodium 131 mmol/L (137-145)
[2023-08-15 06:36] LABS: CRP 23.6 mg/dL (<1.0)
[2023-08-15 08:12] LABS: Glucose Point of Care 159 mg/dl (65-105)
[2023-08-15] MEDS: lisinopriL 10 MG TABLET 30 MG PO (08:33)
[2023-08-15] MEDS: PRIMIDONE 250 MG TABLET PO ×2 (08:33→16:50)
[2023-08-15] MEDS: MELOXICAM 7.5 MG TABLET 15 MG PO (08:33)
[2023-08-15] MEDS: ATORVASTATIN 40 MG TABLET PO (08:33)
[2023-08-15] MEDS: DOXYCYCLINE HYCLATE 100 MG TABLET PO ×2 (08:33→20:07)
[2023-08-15] MEDS: oxyBUTYnin CHLORIDE 5 MG TABLET PO (08:34)
[2023-08-15] MEDS: FAMOTIDINE 20 MG TABLET 40 MG PO (08:34)
[2023-08-15] MEDS: GABAPENTIN 400 MG CAPSULE 800 MG PO ×3 (08:34→16:49)
[2023-08-15] MEDS: CITALOPRAM HYDROBROMIDE 20 MG TABLET 40 MG PO (08:34)
[2023-08-15] MEDS: NORTRIPTYLINE HCL 25 MG CAPSULE PO ×3 (08:34→16:50)
[2023-08-15] MEDS: DOCUSATE SODIUM 100 MG CAPSULE PO ×2 (08:34→16:50)
[2023-08-15] MEDS: metFORMIN HCL 500 MG TABLET PO ×3 (08:34→16:50)
[2023-08-15] MEDS: TOLNAFTATE 1% POWDER 45 GM BTL 1 APPLIC TOPICAL ×2 (08:34→20:09)
[2023-08-15] MEDS: AMOXICILLIN/CLAVULANATE K 875-125 MG TAB 1 TABLET PO ×2 (08:34→20:07)
--- NOTE | 2023-08-15 10:39 | PCOTNOTE ---
Attempted to see pt. for occupational therapy evaluation. Pt. declined to participate at this time, as she is attempting to have bowel movement on bedpan. Unable to find available bariatric commode for use and to offer for out of bed activity. Pt. declining additional out of bed activity at this time. Nursing aware. Following.
[2023-08-15] MEDS: ENOXAPARIN 30 MG/0.3 ML SYRINGE SUB-Q ×2 (11:09→20:07)
[2023-08-15] MEDS: ERGOCALCIFEROL 50,000 UNITS CAPSULE 50000 UNITS PO (11:09)
[2023-08-15] MEDS: predniSONE 20 MG TABLET 40 MG PO (11:09)
[2023-08-15] MEDS: oxyCODONE HCL (*CRX) 2.5 MG TAB IR PO ×3 (11:10→21:31)
[2023-08-15] MEDS: IPRATROPIUM BR 0.02% INH SOLN 0.5 MG/2.5 ML VIAL INHALATION ×2 (11:34→20:23)
[2023-08-15] MEDS: ALBUTEROL SULFATE NEB 2.5 MG/3 ML INH INHALATION ×2 (11:34→20:23)
[2023-08-15] MEDS: FLUTICASONE/SALMETEROL 115-21 MCG INHALER 1 PUFF 2 PUFF INHALATION ×2 (11:35→20:23)
[2023-08-15 12:17] LABS: Glucose Point of Care 199 mg/dl (65-105)
[2023-08-15 12:18] LABS: Influenza A QL RT-PCR Negative (Negative); Influenza B QL RT-PCR Negative (Negative); RSV RNA, RT-PCR Negative (Negative); SARS-CoV-2 RNA PCR Negative (Negative)
[2023-08-15] MEDS: PERFLUTREN LIPID MICROSPHERES 1.5 ML VIAL DILUTED TO 10 ML TOTAL VOLUME IV PUSH (15:30)
--- NOTE | 2023-08-15 15:51 | IVDEFINITY ---
Prior to administration of IV Definity the patient was educated on the risks and benefits of the imaging enhancing agent including potential adverse side effects. The patient verbalized understanding. Allergies were verified. No exclusion criteria were identified and at least one of the following inclusion criteria were met: 1) physician request, 2) patient technically difficult to image (per the [place] [employer] guidelines of two or more segments not discernable within the apical view), or 3) questionable left ventricular function. ?
--- NOTE | 2023-08-15 16:17 | PM.IMPN ---
Progress Note: A&P Assessment and Plan (1) Cellulitis: Qualifiers: Site of cellulitis: other site Qualified Code(s): L03.818 - Cellulitis of other sites Code(s): L03.90 - Cellulitis, unspecified Status: Acute Assessment and Plan: Patient with erythema and cellulitis to the right>left inguinal folds. Started on vanc, Rocephin and Flagyl 08/09. Wound care consult appreciated. BCx NGTD WCx MRSA MRSA nasal swab positive. PCT 0.2, CRP improving from 21.5 to 9. WBC normal. De-escalated to Augmentin + doxycycline 08/11. Continue current wound care Awaiting Echo results but could be discharged but told there are transporation issues (needs ambulance) so will plan discharge in AM. (2) MINA (acute kidney injury): Code(s): N17.9 - Acute kidney failure, unspecified Status: Acute Assessment and Plan: MINA with Cr up to 2.3. Normal baseline in 2020 (Cr 0.5). Treated with IVF and Lasix prn. Cr trended down to 1.1 and stable; probably at baseline? Follow (3) Wheezing: Code(s): R06.2 - Wheezing Status: Acute Assessment and Plan: Wheezing noted on exam 08/13. CXR 08/13 showing airspace opacities in the mid and lower lung zones. CXR clear on 08/09. Lasix given once yesterday. UOP not accurate. Underlying COPD? She was educated about the benefits of smoking cessation. She is on nebulizers at home. ABG this morning showing [id number] on 1L Apnea link showing AHI 2.3 and RI 3.2 on 1L Continue nebulizer treatments here. Repeat Lasix once. Echo pending. Able now to wean her to room air. Add Prednisone. (4) Effusion, left knee: Code(s): M25.462 - Effusion, left knee Status: Acute Assessment and Plan: Patient with left knee pain and swelling. Knee x-ray reviewed showing moderate knee effusion and severe OA Orthopedic surgery consultation appreciated, recommended anti-inflammatories, ice and WBAT Having more left upper thigh pain. Left Hip xray performed showing mild OA. Doppler negative for DVT Refer outpatient for aspiration and cortisone injection once infection clears. Continue PT/OT (5) Hyponatremia: Code(s): E87.1 - Hypo-osmolality and hyponatremia Status: Acute Assessment and Plan: Sodium low but stable 128-131 range. Monitor (6) Diabetes mellitus with hyperglycemia: Code(s): E11.65 - Type 2 diabetes mellitus with hyperglycemia Status: Acute Assessment and Plan: A1c 6.8. The patient's blood glucose was reviewed on 08/15 Glucose elevated at times probably related to steroids. Continue AccuCheks covering with sliding scale. Hypoglycemia protocol available as needed. Continue metformin (7) Morbid obesity with BMI of 60.0-69.9, adult: Code(s): E66.01 - Morbid (severe) obesity due to excess calories; Z68.44 - Body mass index [BMI] 60.0-69.9, adult Status: Acute Assessment and Plan: Contributes to her other medical problems (8) Tobacco abuse: Code(s): Z72.0 - Tobacco use Status: Acute Assessment and Plan: Patient was educated about the benefits of smoking cessation Plan DVT prophylaxis with lovenox GI prophylaxis with pepcid Code status full code Subjective Date/time seen: 08/15/23 16:17 Interval history: 63-year-old female with history of obesity presenting with weakness and fatigue and currently being treated for diffuse cellulitis of her inguinal folds and pannus. No CP or SOB. Pain in the left thigh and also with calf pain. Exam Narrative: AF 97.6 105/66 82 18 98% 1L Gen - NARD Chest - diffuse expiratory wheezes. nml RR CV - RRR S1/S2 Abd -soft. Obese. Nontender. Ext -trace pitting and nonpitting pedal edema; left knee pain with flexion/extension. ROM limited to the left hip due to body habitus. Psych - Nml mood and affect Skin - Warm and dry. small shallow ulcers/tears in the inguinal folds and 2 on the underside
[2023-08-15] MEDS: INSULIN ASPART (*BKC) 100 UNITS/ML SUB-Q (17:04)
[2023-08-15 17:17] LABS: Glucose Point of Care 256 mg/dl (65-105)
[2023-08-15] MEDS: rOPINIRole HCL 1 MG TABLET 3 MG PO (20:07)
[2023-08-15] MEDS: traMADol HCL (*CRX) 50 MG TABLET 100 MG PO (20:15)
[2023-08-15 20:36] LABS: Glucose Point of Care 262 mg/dl (65-105)
[2023-08-16] VITALS (7 sets, daily range): BP systolic 109–119; BP diastolic 56–67; PULSE 74–92; RESP 16–20; TEMP 36.4–36.6; O2SAT 93–98
[2023-08-16] MEDS: IPRATROPIUM BR 0.02% INH SOLN 0.5 MG/2.5 ML VIAL INHALATION ×2 (02:02→10:10)
[2023-08-16] MEDS: ALBUTEROL SULFATE NEB 2.5 MG/3 ML INH INHALATION ×2 (02:02→10:10)
[2023-08-16 05:52] LABS: Basophils Absolute Auto 0.1 K/mm3 (0.0-0.1); Basophils Percent Auto 0.7 % (0.2-1.2); Eosinophils Absolute Auto 0.1 K/mm3 (0-0.3); Eosinophils Percent Auto 0.8 % (0-4.4); Hematocrit 40.1 % (37.0-47.0); Hemoglobin 12.6 g/dL (12.0-15.0); Immature Granulocyte Absolute 0.12 K/mm3 (0.00-0.031); Immature Granulocyte Percent A 1.6 % (0-0.5); Lymphocytes Absolute Auto 2.42 K/mm3 (0.9-3.2); Lymphocytes Percent Auto 32.3 % (18.3-44.2); Mean Corpuscular HGB Conc 31.4 g/dl (32-36); Mean Corpuscular Hemoglobin 27.5 pg (26-34); Mean Corpuscular Volume 87.6 fl (80-100); Mean Platelet Volume 9.9 fl (7.4-10.4); Monocytes Absolute Auto 0.5 K/mm3 (0.1-0.6); Monocytes Percent Auto 6.7 % (2.6-8.5); Neutrophils Absolute Auto 4.4 K/mm3 (1.3-6.7); Neutrophils Percent Auto 57.9 % (45.5-73.1); Platelet Count Result 259 k/mm3 (150-375); Red Blood Count 4.58 M/mm3 (4.2-5.4); Red Cell Distribution Width 15.2 % (11.5-14.5); White Blood Count 7.5 K/mm3 (4.5-10.0)
[2023-08-16 05:55] LABS: Alanine Aminotransferase 30 U/L (6-35); Alkaline Phosphatase 98 U/L (38-126); Anion Gap 1 mmol/L (8-16); Aspartate Amino Transferase 41 U/L (14-36); Bilirubin,Total 0.4 mg/dL (0.2-1.3); Blood Urea Nitrogen 24 mg/dL (7-17); Calcium 8.2 mg/dL (8.4-10.2); Carbon Dioxide 31 mmol/L (22-30); Chloride 98 mmol/L (98-107); Estimated CRCL calculation 91 ml/min; Estimated Glomerular Filt Rate > 60; Glucose 169 mg/dL (65-110); Potassium 4.1 mmol/L (3.4-5.0); Sodium 130 mmol/L (137-145)
[2023-08-16] MEDS: lisinopriL 10 MG TABLET 30 MG PO (08:26)
[2023-08-16] MEDS: MELOXICAM 7.5 MG TABLET 15 MG PO (08:26)
[2023-08-16] MEDS: DOXYCYCLINE HYCLATE 100 MG TABLET PO (08:26)
[2023-08-16] MEDS: AMOXICILLIN/CLAVULANATE K 875-125 MG TAB 1 TABLET PO (08:26)
[2023-08-16] MEDS: oxyBUTYnin CHLORIDE 5 MG TABLET PO (08:26)
[2023-08-16] MEDS: metFORMIN HCL 500 MG TABLET PO (08:26)
[2023-08-16] MEDS: ATORVASTATIN 40 MG TABLET PO (08:26)
[2023-08-16] MEDS: PRIMIDONE 250 MG TABLET PO (08:26)
[2023-08-16] MEDS: DOCUSATE SODIUM 100 MG CAPSULE PO (08:27)
[2023-08-16] MEDS: GABAPENTIN 400 MG CAPSULE 800 MG PO (08:27)
[2023-08-16] MEDS: CITALOPRAM HYDROBROMIDE 20 MG TABLET 40 MG PO (08:27)
[2023-08-16] MEDS: predniSONE 20 MG TABLET 40 MG PO (08:27)
[2023-08-16] MEDS: NORTRIPTYLINE HCL 25 MG CAPSULE PO (08:27)
[2023-08-16] MEDS: ENOXAPARIN 30 MG/0.3 ML SYRINGE SUB-Q (08:27)
[2023-08-16] MEDS: FAMOTIDINE 20 MG TABLET 40 MG PO (08:27)
[2023-08-16] MEDS: TOLNAFTATE 1% POWDER 45 GM BTL 1 APPLIC TOPICAL (08:28)
[2023-08-16 08:34] LABS: Glucose Point of Care 157 mg/dl (65-105)
[2023-08-16] MEDS: traMADol HCL (*CRX) 50 MG TABLET 100 MG PO (08:39)
--- NOTE | 2023-08-16 09:39 | PM.DS ---
DS: Admitting Diagnosis Discharge Date 08/16/23 Admitting Diagnosis Weakness DS: Discharge Diagnosis Discharge Diagnosis (1) Cellulitis: Qualifiers: Site of cellulitis: other site Qualified Code(s): L03.818 - Cellulitis of other sites Code(s): L03.90 - Cellulitis, unspecified Status: Acute (2) MINA (acute kidney injury): Code(s): N17.9 - Acute kidney failure, unspecified Status: Acute (3) Wheezing: Code(s): R06.2 - Wheezing Status: Acute (4) Effusion, left knee: Code(s): M25.462 - Effusion, left knee Status: Acute (5) Hyponatremia: Code(s): E87.1 - Hypo-osmolality and hyponatremia Status: Acute (6) Diabetes mellitus with hyperglycemia: Code(s): E11.65 - Type 2 diabetes mellitus with hyperglycemia Status: Acute (7) Morbid obesity with BMI of 60.0-69.9, adult: Code(s): E66.01 - Morbid (severe) obesity due to excess calories; Z68.44 - Body mass index [BMI] 60.0-69.9, adult Status: Acute (8) Tobacco abuse: Code(s): Z72.0 - Tobacco use Status: Acute DS: Summary Hospital Course Reason for hospitalization: 63-year-old female with history of obesity presenting with weakness and fatigue and currently being treated for diffuse cellulitis of her inguinal folds and pannus. Please see H&P for details. Hospital Course: Patient presents with weakness. She had erythema and cellulitis to the right>left inguinal folds present on admission. She was started on vancomycin, Rocephin and Flagyl 08/09. Wound care consult appreciated. BCx negative. Wound Cx MRSA. MRSA screeen WBC normal and remained normal. CRP 21 that improved then worsened to 24 for unclear reasons. Lactic acid was normal; WBC was normal; PCT 0.2 all point to discrepant pattern and elevated CRP does not fit. Clinically she was nontoxic and no evidence of worsening infection clinically. Abx were de-escalated to Augmentin + doxycycline 08/11. We continued current wound care. Patient also with MINA with Cr up to 2.3. Normal baseline in 2020 (Cr 0.5). Treated with IVF with improvement. She tolerated Lasix prn. Cr trended down to 1.1 and stable; probably at baseline. Wheezing noted on exam 08/13. CXR 08/13 showing airspace opacities in the mid and lower lung zones. CXR clear on 08/09. Lasix given intermittently. Probably has underlying COPD. She was educated about the benefits of smoking cessation. She has nebulizers at home. ABG [id number] when on 1L. Apnea link showing AHI 2.3 and RI 3.2 on 1L. Echo showing EF 65-70% and Grade I diastolic dysfunction. Prednisone added. Patient with left knee pain and swelling. Knee x-ray reviewed showing moderate knee effusion and severe OA. Orthopedic surgery consultation appreciated, recommended anti-inflammatories, ice and WBAT. Having more left upper thigh pain. Left Hip xray performed showing mild OA. Doppler negative for DVT. Will have her follow up with orthopedics for possible cortisone injection once infection clears. She worked with PT/OT. She is in a motorized WC at home. She was educated about adhering to a healthy lifestyle. SHe overall did well and was able to be discharged home on 08/16/23 Status at Discharge Cognitive/behavioral status at discharge: stable Time Spent with Patient Time attestation: Total time spent providing and/or coordinating discharge services: 35 minutes Time spent: Greater than 30 minutes Exam Narrative: AF 97.8 109/67 75 16 95% RA Gen - NARD Chest - distant, clear BS CV - RRR S1/S2 Abd -soft. Obese. Nontender. Ext -trace pitting and nonpitting pedal edema Psych - Nml mood and affect Skin - Warm and dry. small shallow ulcers/tears in the right inguinal fold and 3-4 small on the underside of the pannus. Scant erythema. DS: Data Data Completed and Pending Labs on day of discharge: Labs from last 24 hours 08/16/23 08/16/23 08/15/23 08:29 04:58 20:24 WBC 7.5 RBC
[2023-08-16] MEDS: FLUTICASONE/SALMETEROL 115-21 MCG INHALER 1 PUFF 2 PUFF INHALATION (10:10)
[2023-08-16 12:03] LABS: Glucose Point of Care 288 mg/dl (65-105)
== END 2023-08-16 12:50 | disposition home or self-care (01) | DRG 420 ==
LOC: ANHED 21:44 → ANH2MED 22:37
PROVIDERS: Student in an Organized Health Care Education/Training Program; Admitting Provider Family Medicine; Emergency Provider Student in an Organized Health Care Education/Training Program; PCP Family Medicine; Visit Provider Internal Medicine
DX: E11.628 Type 2 diabetes mellitus with other skin complications (principal); N17.9 Acute kidney failure, unspecified; L03.314 Cellulitis of groin; B95.62 Methicillin resistant Staphylococcus aureus infection as the cause of diseases classified elsewhere; E11.65 Type 2 diabetes mellitus with hyperglycemia; E87.1 Hypo-osmolality and hyponatremia; B37.2 Candidiasis of skin and nail; E11.9 Type 2 diabetes mellitus without complications; Z68.44 Body mass index [BMI] 60.0-69.9, adult; I25.10 Atherosclerotic heart disease of native coronary artery without angina pectoris; M25.462 Effusion, left knee; M17.12 Unilateral primary osteoarthritis, left knee; R29.6 Repeated falls; E66.01 Morbid (severe) obesity due to excess calories; F17.210 Nicotine dependence, cigarettes, uncomplicated; Z20.822 Contact with and (suspected) exposure to COVID-19; Z79.84 Long term (current) use of oral hypoglycemic drugs; Z95.5 Presence of coronary angioplasty implant and graft
CPT/HCPCS: 36415; 36600; 70450; 71045; 73502; 73552; 73562; 80053; 81001; 82550; 82565; 82805; 82948; 83036; 83605; 83735; 84100; 84145; 84484; 85025; 86140; 87040; 87070; 87081; 87147; 87181; 87186; 87205; 87637; 93005; 93970; 94640; 94762; 96361; 96374; 96375; 97110; 97161; 97530; 99285; A9270; C8929; J0696; J1170; J1650; J1815; J1940; J2060; J2405; J2930; J3370; J7030; J7120; J7512; Q9957

== ENCOUNTER 2023-12-15 14:14 | Inpatient (IN) | payer OTHER, SELFPAY ==
[2023-12-15] VITALS (10 sets, daily range): BP systolic 131–148; BP diastolic 53–89; PULSE 112–133; RESP 12–22; TEMP 36.3–36.4; O2SAT 94–98; BMI 64.2
--- NOTE | ~2023-12-15 | XR_ITS ---
EXAMINATION: XR chest 2V DATE: 12/15/2023 14:48 INDICATION: Palpitations. TECHNIQUE: Frontal and lateral views of the chest were obtained. COMPARISON: Chest single view 08/13/2023 FINDINGS: There is a diffuse interstitial pattern in the lungs, consistent with mild pulmonary edema. No pleural effusion or pneumothorax. Cardiomegaly is noted. IMPRESSION: 1. Mild pulmonary edema. 2. Cardiomegaly. Reviewed, dictated and finalized at location A. C ORCHESTRATOR
--- NOTE | ~2023-12-15 | CT_ITS ---
EXAMINATION: CTA chest PE protocol DATE: 12/15/2023 18:47 INDICATION: dyspnea/ tachycardic TECHNIQUE: Computed tomography angiography (CTA) of the chest was performed with intravenous contrast timed to evaluate the pulmonary arteries. Coronal maximum intensity projection 3D-reconstructions we re created by the technologist. The dose-length product (DLP) was 1111.19 mGy-cm. Automated exposure control and iterative reconstruction technique were employed. COMPARISON: X-ray chest, same date. FINDINGS: Lung parenchyma and airways: Patchy areas of groundglass opacity. The airways are clear.. Pleura: Unremarkable. Thoracic inlet, axillae and chest wall: Unremarkable. Thoracic aorta: Normal. Mediastinum: Bilateral hilar and mediastinal lymphadenopathy. Dilated central pulmonary arteries as c an be seen with pulmonary arterial hypertension Heart and pericardium: Cardiomegaly. Coronary artery stent. Coronary artery calcifications: Absent. Upper abdomen: No significant finding. Bones: No acute osseous finding. Pulmonary arteries: Study quality: Adequate. No pulmonary emboli detected. IMPRESSION: No CT evidence of acute pulmonary embolus. Patchy groundglass pulmonary opacities may represent edema or infection. Reviewed, dictated and finalized at location K. IMPRESSION: No CT evidence of acute pulmonary embolus. Patchy groundglass pulmonary opaciti es may represent edema or infection.
--- NOTE | 2023-12-15 14:15 | ECG_ITS ---
Measurements Intervals [place] Rate: 131 P: 265 W[place]: 166 QRS: -69 QRSD: 82 T: 79 QT: 288 QTc: 426 Interpretive Statements ATRIAL TACHYCARDIA WITH RAPID VENTRICULAR RESPONSE LEFT AXIS DEVIATION LOW QRS VOLTAGE IN PRECORDIAL LEADS ANTEROSEPTAL INFARCT, AGE INDETERMINATE INFERIOR INFARCT, AGE INDETERMINATE BASELINE ARTIFACT- I, II, AVR, AVL, V1-V2 ABNORMAL ECG COMPARED TO ECG 08/08/2023 16:32:45 ATRIAL TACHYCARDIA NOW PRESENT Electronically Signed On 12-15-2023 14:37:55 F[employer]CTIONATION PLANT SUPERVISOR by Wellington Baker D.O.
--- NOTE | 2023-12-15 14:24 | ECG_ITS ---
Measurements Intervals [place] Rate: 131 P: [place]: 0 QRS: -62 QRSD: 72 T: 83 QT: 277 QTc: 410 Interpretive Statements SUPRAVENTRICULAR TACHYCARDIA LOW QRS VOLTAGE IN PRECORDIAL LEADS ANTERIOR INFARCT, AGE INDETERMINATE INFERIOR INFARCT, AGE INDETERMINATE BORDERLINE ST-T WAVE ABNORMALITY- HIGH LATERAL LEADS BASELINE ARTIFACT- I, II, III, AVR, AVL, AVF, V1-V6 ABNORMAL ECG COMPARED TO ECG 08/08/2023 16:32:45 SUPRAVENTRICULAR TACHYCARDIA NOW PRESENT MYOCARDIAL INFARCT FINDING NOW PRESENT ST-T WAVE ABNORMALITY NOW PRESENT Electronically Signed On 12-17-2023 16:09:26 [employer] by Wellington Baker D.O.
[2023-12-15 14:55] LABS: Basophils Absolute Auto 0.1 K/mm3 (0.0-0.1); Basophils Percent Auto 0.5 % (0.2-1.2); Eosinophils Absolute Auto 0.2 K/mm3 (0-0.3); Eosinophils Percent Auto 1.1 % (0-4.4); Hematocrit 53.2 % (37.0-47.0); Hemoglobin 16.6 g/dL (12.0-15.0); Immature Granulocyte Percent A 0.7 % (0-0.5); Lymphocytes Absolute Auto 4.21 K/mm3 (0.9-3.2); Lymphocytes Percent Auto 29.4 % (18.3-44.2); Mean Corpuscular HGB Conc 31.2 g/dl (32-36); Mean Corpuscular Hemoglobin 28.1 pg (26-34); Mean Platelet Volume 9.5 fl (7.4-10.4); Monocytes Absolute Auto 0.7 K/mm3 (0.1-0.6); Monocytes Percent Auto 4.7 % (2.6-8.5); Neutrophils Absolute Auto 9.1 K/mm3 (1.3-6.7); Neutrophils Percent Auto 63.6 % (45.5-73.1); Platelet Count Result 303 k/mm3 (150-375); Red Blood Count 5.91 M/mm3 (4.2-5.4); Red Cell Distribution Width 15.9 % (11.5-14.5); White Blood Count 14.3 K/mm3 (4.5-10.0)
[2023-12-15 15:05] LABS: Alanine Aminotransferase 14 U/L (6-35); Albumin Level 3.9 g/dL (3.5-5.1); Alkaline Phosphatase 114 U/L (38-126); Anion Gap 9 mmol/L (8-16); Aspartate Amino Transferase 18 U/L (14-36); Bilirubin,Total 0.5 mg/dL (0.2-1.3); Blood Urea Nitrogen 12 mg/dL (7-17); Calcium 9.2 mg/dL (8.4-10.2); Carbon Dioxide 24 mmol/L (22-30); Chloride 102 mmol/L (98-107); Estimated CRCL calculation 63 ml/min; Estimated Glomerular Filt Rate 56; Glucose 119 mg/dL (65-110); Lipase 116 U/L (23-300); Potassium 5.4 mmol/L (3.4-5.0); Sodium 135 mmol/L (137-145)
[2023-12-15 15:10] LABS: Prothrombin Time 13.1 Seconds (11.1-14.7)
[2023-12-15 15:11] LABS: Partial Thromboplastin Time 32.3 SECONDS (22.3-36.8)
--- NOTE | 2023-12-15 15:15 | ED.GENADULT ---
HPI - General Adult General Chief complaint: Arrhythmia/Palpitations <Moriah Kaye March, FUND ACCOUNTING MANAGER - Last Filed: 12/15/23 15:25> Stated complaint: a-fib-sent by provider <Moriah Kaye March, FUND ACCOUNTING MANAGER - Last Filed: 12/15/23 15:25> Time Seen by Provider: 12/15/23 17:56 <Moriah Kaye March, FUND ACCOUNTING MANAGER - Last Filed: 12/15/23 15:25> History of Present Illness HPI narrative: Focused HPI: 1516 Juliann Moody is a 63 y/o female who presents with reports of having an appointment with her PCP today and her PCP Dr. Steinberg sent her here because her pulse and b/p was elevated. Patient states that she has felt her heart racing for about 2 weeks and she has had increased SOB for the past 2 days - she tries using her inhalers and it doesn't help at all. Denies chest pain / denies abdominal pain / denies hx of Blood clots. Patient reports she feels tired/ fatigued/ dizzy off and on / shaky GENERAL: well-nourished, and in no acute distress. HEAD: Normocephalic, atraumatic. CHEST: Clear to auscultation. ?No respiratory distress. HEART: tachycardic regular NEURO: ?Alert and oriented x3. Patient screened in triage and initial orders placed.? ?Additional care and disposition to be based upon?diagnostic testing and treatment. <Moriah Kaye March, - Last Filed: 12/15/23 15:25> Related Data Home medications: Home Medications Medication Instructions Recorded Confirmed atorvastatin 40 mg tablet 40 mg PO DAILY 08/09/23 12/15/23 citalopram 40 mg tablet 40 mg PO DAILY 08/09/23 12/15/23 ergocalciferol (vitamin D2) 1,250 1,250 mcg PO WEEKLY 08/09/23 12/15/23 mcg (50,000 unit) capsule (Vitamin D2) famotidine 40 mg tablet 40 mg PO DAILY 08/09/23 12/15/23 gabapentin 800 mg tablet 800 mg PO TID 08/09/23 12/15/23 lisinopril 30 mg tablet 30 mg PO DAILY 08/09/23 12/15/23 meloxicam 15 mg tablet 15 mg PO DAILY 08/09/23 12/15/23 nortriptyline 25 mg capsule 25 mg PO TID 08/09/23 12/15/23 oxybutynin chloride 5 mg tablet 5 mg PO HS 08/09/23 12/15/23 primidone 250 mg tablet 250 mg PO BID 08/09/23 12/15/23 ropinirole 3 mg tablet 3 mg PO HS 08/09/23 12/15/23 budesonide-formoterol HFA 160 1 puff inhalation BID PRN 08/14/23 12/15/23 mcg-4.5 mcg/actuation aerosol Shortness Of Breath inhaler (Symbicort) dulaglutide 1.5 mg/0.5 mL 1.5 mg subcut WEEKLY 12/15/23 12/15/23 subcutaneous pen injector (Trulicity) insulin glargine 100 unit/mL (3 42 unit subcut QAM 12/15/23 12/15/23 mL) subcutaneous pen (Basaglar KwikPen U-100 Insulin) insulin glargine 100 unit/mL (3 46 unit subcut QHS 12/15/23 12/15/23 mL) subcutaneous pen (Basaglar KwikPen U-100 Insulin) metformin 500 mg tablet 500 mg PO TID 12/15/23 12/15/23 tolnaftate 1 % topical powder 1 applic topical Q12HR PRN Rash 12/15/23 12/15/23 <Moriah Kaye March, - Last Filed: 12/15/23 15:25> Allergies/adverse reactions: Allergies Allergy/AdvReac Type Severity Reaction Status Date / Time morphine Allergy Swelling Verified 12/15/23 14:15 of Lip/Tongue/Throat <Moriah Kaye March, - Last Filed: 12/15/23 15:25> Review of Systems Review of Systems: CONSTITUTIONAL: Denies fever CARDIOVASCULAR: Denies chest pain, or edema. RESPIRATORY: Reports dyspnea. <Caitlin Presley PA-C - Last Filed: 12/15/23 22:14> All systems reviewed & are unremarkable except as noted in HPI and below <Caitlin Presley PA-C - Last Filed: 12/15/23 22:14> [facility] Past Medical History Medical History: Medical History (Updated 12/16/23 @ 02:10 by Julia Renee MD) Cellulitis of groin Degenerative joint disease of knee Diabetes mellitus with hyperglycemia History of COPD History of hyperlipidemia History of hypertension Morbid obesity with BMI of 60.0-69.9, adult <Moriah Galicia, FUND ACCOUNTING MANAGER - Last Filed: 12/15/23 15:25> Family History Family History: Family History Father Acute myocardial infarction Hypertension Grandparent Chronic obs
[2023-12-15 15:16] LABS: Troponin I < 0.012 ng/mL (0.000-0.034)
--- NOTE | 2023-12-15 16:27 | PC.NURSE ---
RN noted pt outside smoking cigarette.
--- NOTE | 2023-12-15 17:56 | PC.NURSE ---
Putting Pt on 2L of Oxygen due to work of breathing
[2023-12-15 17:58] LABS: NT Pro B Type Natriuretic Pept 833 pg/mL (19.9-100)
--- NOTE | 2023-12-15 17:58 | ECG_ITS ---
Measurements Intervals [place] Rate: 132 P: 268 [place]: 160 QRS: -54 QRSD: 86 T: 67 QT: 277 QTc: 412 Interpretive Statements ATRIAL FLUTTER/TACHYCARDIA WITH RAPID VENTRICULAR RESPONSE LEFT AXIS DEVIATION LOW QRS VOLTAGE IN PRECORDIAL LEADS ANTEROSEPTAL INFARCT, AGE INDETERMINATE CONSIDER INFERIOR INFARCT, AGE INDETERMINATE BORDERLINE ST-T WAVE ABNORMALITY- HIGH LATERAL LEADS BASELINE ARTIFACT- I, II, III, AVR, AVL, AVF, V1-V6 ABNORMAL ECG COMPARED TO ECG 12/15/2023 14:24:46 NO SIGNIFICANT CHANGES Electronically Signed On 12-15-2023 19:46:04 [employer] INTERN by Wellington Baker D.O.
--- NOTE | 2023-12-15 18:09 | ED.ARRPALP ---
HPI - Arrhythmia/Palpitations General Chief Complaint: Arrhythmia/Palpitations Stated Complaint: a-fib-sent by provider Time Seen by Provider: 12/15/23 17:56 Source: patient Mode of arrival: ambulatory Limitations: no limitations History of Present Illness HPI narrative: This is a 63-year-old female that presents to the emergency department for elevated heart rate. Reports she was at her primary provider for a regular checkup. They noted her heart rate was elevated and sent her to the ER for further evaluation. She does report she has felt jittery the last couple a days. Also endorses some mild shortness of breath. Denies fevers, cough, or lower extremity edema. Related Data Home Medications Medication Instructions Recorded Confirmed atorvastatin 40 mg tablet 40 mg PO DAILY 08/09/23 08/09/23 citalopram 40 mg tablet 40 mg PO DAILY 08/09/23 08/09/23 docusate sodium 100 mg capsule 100 mg PO BID 08/09/23 08/09/23 ergocalciferol (vitamin D2) 1,250 1,250 mcg PO WEEKLY 08/09/23 08/09/23 mcg (50,000 unit) capsule (Vitamin D2) famotidine 40 mg tablet 40 mg PO DAILY 08/09/23 08/09/23 gabapentin 800 mg tablet 800 mg PO TID 08/09/23 08/09/23 lisinopril 30 mg tablet 30 mg PO DAILY 08/09/23 08/09/23 meloxicam 15 mg tablet 15 mg PO DAILY 08/09/23 08/09/23 metformin 500 mg PO TID 08/09/23 08/09/23 nortriptyline 25 mg capsule 25 mg PO TID 08/09/23 08/09/23 oxybutynin chloride 5 mg tablet 5 mg PO DAILY 08/09/23 08/09/23 primidone 250 mg tablet 250 mg PO BID 08/09/23 08/09/23 ropinirole 3 mg tablet 3 mg PO HS 08/09/23 08/09/23 tramadol 100 mg PO BID PRN Pain (Scale 08/09/23 08/09/23 Score 4-6) budesonide-formoterol HFA 160 1 puff inhalation BID 08/14/23 08/14/23 mcg-4.5 mcg/actuation aerosol inhaler (Symbicort) Allergies Allergy/AdvReac Type Severity Reaction Status Date / Time morphine Allergy Swelling Verified 12/15/23 14:15 of Lip/Tongue/Throat Review of Systems Review of Systems: CONSTITUTIONAL: Denies fever CARDIOVASCULAR: Reports palpitations. Denies chest pain, or edema. RESPIRATORY: Reports dyspnea. Denies cough All systems reviewed & are unremarkable except as noted in HPI and below PMFSH Past Medical History Medical History (Updated 08/14/23 @ 12:36 by Nilton Anderson MD) Cellulitis of groin Degenerative joint disease of knee Diabetes mellitus with hyperglycemia Morbid obesity with BMI of 60.0-69.9, adult Family History Family History Father Acute myocardial infarction Hypertension Grandparent Chronic obstructive pulmonary disease Diabetes mellitus Mother Congestive heart failure Diabetes mellitus Hypertension Other Leukemia Social History Social History Smoking packs per day: 1 Smoking cigarettes per day: 20.0 Smoking status: Current every day smoker Alcohol intake: current Drinks per week: 1 Substance use: current Substance use type: marijuana Other substance usage details: SMOKES 2X DAY AND OCC GUMMIES Lack of Transportation: No Lack of Food: Never True Current Housing: Decline to Answer Concerned About Future Housing: No Difficulty Paying Gas/Electric Bills: No Difficulty Paying for Meds: No Currently Unemployed: No Education: High School Diploma/GED Difficulty w/ Childcare or Family Care: No Spiritual care concerns: No Exam Narrative: GENERAL: Well-appearing, well-nourished, and in no acute distress. HEAD: Normocephalic, atraumatic. EYES: EOMI. ENT: Nares clear, no rhinorrhea or epistaxis. Mucous membranes dry. Oropharynx without tonsillar hypertrophy exudate or other lesions. NECK: Supple. No adenopathy or masses. No JVD CHEST: No respiratory distress. Mild, expiratory wheezing. No rales or rhonchi HEART: Regular rate and rhythm. No murmur heard. Normal peripheral pulses. EXTREMITIES: Normal range of motion
[2023-12-15] MEDS: SODIUM CHLORIDE 0.9% IV 500 ML 125 ML IV CONT (18:17)
[2023-12-15] MEDS: METOPROLOL TARTRATE INJ 5 MG/5 ML VIAL IV PUSH ×2 (18:17→21:29)
[2023-12-15 18:57] LABS: Troponin I < 0.012 ng/mL (0.000-0.034)
[2023-12-15 19:19] LABS: D Dimer 0.41 ug/mL (<0.48)
--- NOTE | 2023-12-15 19:45 | ECG_ITS ---
Measurements Intervals [place] Rate: 126 P: [place]: 0 QRS: -81 QRSD: 97 T: 93 QT: 298 QTc: 431 Interpretive Statements ATRIAL FLUTTER/TACHYCARDIA WITH RAPID VENTRICULAR RESPONSE LEFT AXIS DEVIATION BORDERLINE R WAVE PROGRESSION, ANTERIOR LEADS INFERIOR INFARCT, AGE INDETERMINATE BORDERLINE ST-T WAVE ABNORMALITY- HIGH LATERAL LEADS BASELINE ARTIFACT- I, IIII, AVR, AVL, AVF, V1-V2 ABNORMAL ECG COMPARED TO ECG 12/15/2023 18:01:41 NO SIGNIFICANT CHANGES Electronically Signed On 12-16-2023 6:16:48 PHARMACY CLERK by Wellington Baker D.O.
--- NOTE | 2023-12-15 20:09 | PM.IMHP ---
H&P: HPI History of Present Illness Date/Time: 12/15/23 20:09 Chief Complaint: palpitations Narrative: This is a 63-year-old female with past medical history significant for morbid obesity, COPD/ emphysema, tobacco dependence, insulin-dependent diabetes mellitus, peripheral diabetic neuropathy, restless legs syndrome, venous stasis, dyslipidemia. patient was found to have atrial fibrillation with rapid ventricular response. Patient denies any nausea, vomiting she has a productive cough, no fevers ,no chills ,no rigors. preliminary workup was significant for CT angiogram of the chest PE protocol was negative for acute pulmonary embolism. Patient is been admitted for further evaluation management and treatment. EXAMINATION: XR chest 2V DATE: 12/15/2023 14:48 INDICATION: Palpitations. TECHNIQUE: Frontal and lateral views of the chest were obtained. COMPARISON: Chest single view 08/13/2023 FINDINGS: There is a diffuse interstitial pattern in the lungs, consistent with mild pulmonary edema. No pleural effusion or pneumothorax. Cardiomegaly is noted. IMPRESSION: 1. Mild pulmonary edema. 2. Cardiomegaly. EXAMINATION: CTA chest PE protocol DATE: 12/15/2023 18:47 INDICATION: dyspnea/ tachycardic TECHNIQUE: Computed tomography angiography (CTA) of the chest was performed with intravenous contrast timed to evaluate the pulmonary arteries. Coronal maximum intensity projection 3D-reconstructions were created by the technologist. The dose-length product (DLP) was 1111.19 mGy-cm. Automated exposure control and iterative reconstruction technique were employed. COMPARISON: X-ray chest, same date. ? FINDINGS:? Lung parenchyma and airways: Patchy areas of groundglass opacity. The airways are clear.. Pleura: Unremarkable. Thoracic inlet, axillae and chest wall: Unremarkable. Thoracic aorta: Normal. Mediastinum: Bilateral hilar and mediastinal lymphadenopathy. Dilated central pulmonary arteries as can be seen with pulmonary arterial hypertension Heart and pericardium: Cardiomegaly. Coronary artery stent. Coronary artery calcifications: Absent. Upper abdomen: No significant finding. Bones: No acute osseous finding. Pulmonary arteries: Study quality: Adequate. No pulmonary emboli detected. IMPRESSION: No CT evidence of acute pulmonary embolus. Patchy groundglass pulmonary opacities may represent edema or infection. Review of Systems Review of Systems: Abnormal heart rate Constitutional: Constitutional: Denies chills, Denies fever(s), Denies night sweats, Denies poor appetite and Denies weakness Eyes: Eyes: Denies change in vision ENT: Denies dysphagia and Denies odynophagia Cardiovascular: Cardiovascular: Denies chest pain, Reports leg edema, Denies lightheadedness, Denies radiating jaw, neck or arm pain and Denies palpitations Respiratory: Respiratory: Reports cough and Denies dyspnea Gastrointestinal: Gastrointestinal: Denies abdominal pain, Denies dyspepsia, Denies heartburn, Denies diarrhea, Denies nausea and Denies vomiting Genitourinary: Genitourinary: Denies dysuria Musculoskeletal: Musculoskeletal: Denies arthralgias Integumentary/Breasts: Skin/Breast: Denies rash Neurologic: Denies focal weakness, Denies Sensory deficit (Neuro) and Reports paresthesias Psychiatric: Psychiatric: Reports no additional psychiatric complaints and Reports as per HPI Endocrine: Endocrine: Denies cold intolerance, Denies fatigue, Denies flushing, Denies heat intolerance, Denies polyphagia, Denies polydipsia and Denies palpitations Hematologic/Lymphatic: Hematologic/Lymphatic: Reports no additional hematologic/lymphatic complaints and Reports as per HPI Allergic/Immunologic: Allergic/Immunologic: Reports no additional allergic/immunologic complaints and Reports as per HPI PMFSH Past Medical History Medical History (Updated 12/16/23 @ 02:10 by Julia Renee MD) Cellulitis of groin Degenerative abimbola
[2023-12-15 20:33] LABS: Influenza A QL RT-PCR Negative (Negative); Influenza B QL RT-PCR Negative (Negative); RSV RNA, RT-PCR Negative (Negative); SARS-CoV-2 RNA PCR Negative (Negative)
--- NOTE | 2023-12-15 22:52 | ADMGEN ---
This patient, Juliann Moody, was admitted to [facility] Surg Room 321-02. Patient/family oriented to hospital policies and general routines including ID bracelet, bed and alarms, visiting hours, pain management, procedures, bathroom and other care routines, personal items, smoking policy, room service/diet, and visiting hours. Information on how to activate the Rapid Response Team has been discussed. Patient/Family are encouraged to report perceived risks to care and to ask questions if they do not understand what they are told or what they should do.
[2023-12-15 23:17] LABS: Troponin I < 0.012 ng/mL (0.000-0.034)
[2023-12-15] MEDS: rOPINIRole HCL 1 MG TABLET 3 MG PO (23:30)
[2023-12-15] MEDS: CITALOPRAM HYDROBROMIDE 20 MG TABLET 40 MG PO (23:30)
[2023-12-15] MEDS: GABAPENTIN 400 MG CAPSULE 800 MG PO (23:30)
[2023-12-15] MEDS: NORTRIPTYLINE HCL 25 MG CAPSULE PO (23:30)
[2023-12-15] MEDS: oxyBUTYnin CHLORIDE 5 MG TABLET PO (23:30)
[2023-12-15] MEDS: INSULIN GLARGINE (*BKC) 100 UNITS/ML 46 UNITS SUB-Q (23:32)
[2023-12-16] VITALS (14 sets, daily range): BP systolic 118–133; BP diastolic 77–99; PULSE 120–134; RESP 18–22; TEMP 35.9–36.8; O2SAT 92–97
[2023-12-16] MEDS: NICOTINE (*PBKC) 21 MG PATCH 1 PATCH TRANSDERM ×2 (00:22→09:30)
[2023-12-16 05:47] LABS: Glucose Point of Care 164 mg/dl (65-105)
--- NOTE | 2023-12-16 06:00 | ECHO_ITS ---
Patient Info Name: Juliann Moody Age: 63 years : 1960 Gender: Female Ht: 63 in Wt: 251 lbs BSA: 2.32 m2 HR: 126 bpm BP: 131 / 53 mmHg Heart Rhythm: Atrial Fibrillation Technical Quality: Fair Exam Date: 12/16/2023 9:33 AM Exam Location: Echo Lab Patient Status: Inpatient Admit Date: 12/16/2023 Staff Ordering Physician: Caitlin Presley PA-C [employer] Services Specialist: Nanda Dill RDCS Attending Provider: Julia Renee MD Referring Physician: Fernandez HENDRICKS; Exam Type: CA echo dop color flow w con Study Info Indications - new onset afib Complete two-dimensional, color flow and Doppler transthoracic echocardiogram is performed with contrast to opacify the left ventricle and to improve the deliniation of the left ventricle endocardial borders. Contrast/Agitated Saline Contrast/Ag. Saline: Definity Amount: 3.00 ml Administered By: Nanda Dill RDCS Existing IV Access: Yes IV Access Condition: patent with no signs of infiltration Summary 1. Definity contrast administered improved wall motion interpretation. 2. Left ventricular chamber dimension is normal. 3. Left ventricular systolic function is normal, estimated at 60-65%. 4. There is mild concentric increased left ventricular wall thickness. 5. The left ventricular diastolic function is abnormal. 6. E/e' 16 is elevated. 7. Left atrial chamber dimension is mildly enlarged. 8. There is mild aortic valve sclerosis. 9. The mitral valve has mildly calcified annulus. 10. No pulmonary hypertension, estimated pulmonary arterial systolic pressure is 28 mmHg. Left Ventricle E/e' 16 is elevated. Definity contrast administered improved wall motion interpretation. Left ventricular chamber dimension is normal. Left ventricular systolic function is normal, estimated at 60-65%. There is mild concentric increased left ventricular wall thickness. The left ventricular diastolic function is abnormal. Right Ventricle Right ventricular systolic function is normal and with normal TAPSE 1.9 cm. Right ventricular chamber dimension is normal. Left Atria Left atrial chamber dimension is mildly enlarged. Right Atria Right atrial chamber dimension is normal. Aortic Valve The aortic valve is trileaflet. There is mild aortic valve sclerosis. There is no aortic valve stenosis. There is no aortic valve regurgitation. Pulmonic Valve There is no pulmonic regurgitation. Mitral Valve The mitral valve has mildly calcified annulus. There is no mitral valve stenosis. There is no mitral valve regurgitation. Tricuspid Valve There is no tricuspid valve regurgitation. No pulmonary hypertension, estimated pulmonary arterial systolic pressure is 28 mmHg. Pericardium/Pleural There is no pericardial effusion. Inferior Vena Cava Normal inferior vena cava with >50% collapse upon inspiration consistent with normal right atrial pressure, 5 mmHg. Aorta The aortic root size at the sinus of Valsalva is normal. Left Ventricular Outflow Tract Name Value Normal LVOT 2D LVOT Diameter 2.07 cm LVOT Doppler LVOT Peak Gradient 5 mmHg LVOT Mean Gradient 3 mmHg
[2023-12-16 08:06] LABS: Glucose Point of Care 119 mg/dl (65-105)
[2023-12-16] MEDS: FAMOTIDINE 20 MG TABLET 40 MG PO (09:29)
[2023-12-16] MEDS: CITALOPRAM HYDROBROMIDE 20 MG TABLET 40 MG PO (09:29)
[2023-12-16] MEDS: ATORVASTATIN 40 MG TABLET PO (09:29)
[2023-12-16] MEDS: GABAPENTIN 400 MG CAPSULE 800 MG PO ×3 (09:29→17:25)
[2023-12-16] MEDS: NORTRIPTYLINE HCL 25 MG CAPSULE PO ×3 (09:34→20:33)
[2023-12-16] MEDS: PRIMIDONE 250 MG TABLET PO ×2 (09:34→20:33)
[2023-12-16] MEDS: INSULIN GLARGINE (*BKC) 100 UNITS/ML 42 UNITS SUB-Q (09:36)
[2023-12-16] MEDS: PERFLUTREN LIPID MICROSPHERES 1.5 ML VIAL DILUTED TO 10 ML TOTAL VOLUME IV PUSH (10:00)
--- NOTE | 2023-12-16 10:25 | IVDEFINITY ---
Prior to administration of IV Definity the patient was educated on the risks and benefits of the imaging enhancing agent including potential adverse side effects. The patient verbalized understanding. Allergies were verified. No exclusion criteria were identified and at least one of the following inclusion criteria were met: 1) physician request, 2) patient technically difficult to image (per the [place] [employer] guidelines of two or more segments not discernable within the apical view), or 3) questionable left ventricular function. ?
[2023-12-16 11:46] LABS: Glucose Point of Care 159 mg/dl (65-105)
[2023-12-16] MEDS: METOPROLOL TARTRATE INJ 5 MG/5 ML VIAL IV PUSH (14:27)
--- NOTE | 2023-12-16 14:58 | PCPTNOTE ---
per RN, pt has been tachycardic in 130s today without activity and wants to wait on therapy until she is more stable
[2023-12-16 16:52] LABS: Glucose Point of Care 110 mg/dl (65-105)
--- NOTE | 2023-12-16 18:31 | PM.IMPN ---
Progress Note: A&P Assessment and Plan (1) Atrial tachycardia: Code(s): I47.19 - Other supraventricular tachycardia Status: Acute Plan A 63-year-old female with a history of morbid obesity, COPD, tobacco dependence, insulin-dependent diabetes mellitus, peripheral diabetic neuropathy, restless leg syndrome, venous stasis, dyslipidemia, hypertension presents from her PCP Dr. Steinberg as she had a elevated heart rate. She reports she has had nervousness and feeling of heart racing for about 2 weeks with increasing shortness of breath to which her inhalers did not help. In the emergency department she was found to have atrial tachycardia/flutter to the 130s. She was given metoprolol IV pushes and heart rate came down to the 120s. Still, she was admitted to [facility] with tele. CTA chest without evidence of PE but possible pneumonia versus edema. Flu COVID RSV screens negative. Patient reports chronic weakness using an electric wheelchair to get around. She also reports falling out of bed on many occasions. She also falls out of her wheelchair sometimes. Considering this, we will hold off on anticoagulation and consult Cardiology in light of atrial tachycardia/flutter. As well, she is on primidone which is a relative contraindication to start anticoagulants. We would likely have to wean this off. Continue telemetry and give IV metoprolol 5 mg x 1 and start metoprolol 25 mg p.o. b.i.d.. Surface echo pending. She has some pulmonary edema which may be more related to the elevated heart rate however she does complain of orthopnea for many months. She has lower extremity edema chronically and thinks that today it is actually the least it has been. Give Lasix 20 mg IV x1. For suspected pneumonia based on imaging and leukocytosis will start ceftriaxone and azithromycin. As for her wheezing this is probably a cardiac wheeze but she does have ongoing tobacco abuse and she has not radiated quit. Nicotine patch, DuoNeb scheduled. Hyperkalemia, recheck BMP now. Give cocktail if necessary Full code. Lovenox for DVT prophylaxis for now Subjective Date/time seen: 12/16/23 18:31 Interval history: A 63-year-old female with a history of morbid obesity, COPD, tobacco dependence, insulin-dependent diabetes mellitus, peripheral diabetic neuropathy, restless leg syndrome, venous stasis, dyslipidemia, hypertension presents from her PCP Dr. Steinberg as she had a elevated heart rate. She reports she has had nervousness and feeling of heart racing for about 2 weeks with increasing shortness of breath to which her inhalers did not help. In the emergency department she was found to have atrial tachycardia/flutter to the 130s. She was given metoprolol IV pushes and heart rate came down to the 120s. Still, she was admitted to [facility] with tele. CTA chest without evidence of PE but possible pneumonia versus edema. Flu COVID RSV screens negative. Review of Systems Review of Systems: All systems reviewed & are unremarkable except as noted in HPI and below (Subjective) Exam Const: General: comfortable and no acute distress Other: A&O x3. Appears flushed Eyes: Pupils: Equal, round and reactive pupils present Neck: Neck: supple Resp: Effort & Inspection: normal respiratory effort Auscultation: crackles and wheezes Cardio: Rate: tachycardic Rhythm: regular rhythm Heart sounds: no gallops, no murmurs and no rubs GI: GI Palp: Yes Soft to palpation and No Tenderness to palpation present (GI) Extrem: General: edema (With chronic venous stasis changes and tender to palpation.) Objective Data Vital Signs Vital Signs: Vital Signs - 24 hr 12/15/23 19:45 12/15/23 21:10 12/15/23 21:29 Temperature Pulse Rate 126 H 127 H 128 H Respiratory Rate 12 19 Blood Pressure 147/81 H Pulse Oximetry 98 98 Oxygen Delivery Oxygen Flow Rate 12/15/23 22:00 12/16/23 01:25 12/16/23 00:00 Temperature 97.6 F Pulse Rate 112 H
[2023-12-16] MEDS: METOPROLOL TARTRATE 25 MG TABLET PO (18:39)
[2023-12-16] MEDS: AZITHROMYCIN 250 MG TABLET 500 MG PO (18:40)
[2023-12-16 19:38] LABS: Basophils Percent Auto 0.5 % (0.2-1.2); Eosinophils Absolute Auto 0.1 K/mm3 (0-0.3); Eosinophils Percent Auto 1.6 % (0-4.4); Hematocrit 47.6 % (37.0-47.0); Hemoglobin 15.3 g/dL (12.0-15.0); Immature Granulocyte Absolute 0.06 K/mm3 (0.00-0.031); Immature Granulocyte Percent A 0.7 % (0-0.5); Lymphocytes Absolute Auto 3.33 K/mm3 (0.9-3.2); Lymphocytes Percent Auto 38.9 % (18.3-44.2); Mean Corpuscular HGB Conc 32.1 g/dl (32-36); Mean Corpuscular Hemoglobin 28.2 pg (26-34); Mean Corpuscular Volume 87.7 fl (80-100); Mean Platelet Volume 9.2 fl (7.4-10.4); Monocytes Absolute Auto 0.5 K/mm3 (0.1-0.6); Monocytes Percent Auto 5.5 % (2.6-8.5); Neutrophils Absolute Auto 4.5 K/mm3 (1.3-6.7); Neutrophils Percent Auto 52.8 % (45.5-73.1); Platelet Count Result 258 k/mm3 (150-375); Red Blood Count 5.43 M/mm3 (4.2-5.4); Red Cell Distribution Width 15.6 % (11.5-14.5); White Blood Count 8.6 K/mm3 (4.5-10.0)
[2023-12-16 19:54] LABS: Anion Gap 7 mmol/L (8-16); Blood Urea Nitrogen 14 mg/dL (7-17); Calcium 8.6 mg/dL (8.4-10.2); Carbon Dioxide 28 mmol/L (22-30); Chloride 101 mmol/L (98-107); Estimated CRCL calculation 87 ml/min; Estimated Glomerular Filt Rate > 60; Glucose 147 mg/dL (65-110); Magnesium 2.2 mg/dL (1.6-2.3); Potassium 4.7 mmol/L (3.4-5.0); Sodium 136 mmol/L (137-145)
[2023-12-16] MEDS: rOPINIRole HCL 1 MG TABLET 3 MG PO (20:32)
[2023-12-16] MEDS: oxyBUTYnin CHLORIDE 5 MG TABLET PO (20:32)
[2023-12-16] MEDS: FUROSEMIDE INJ 40 MG/4 ML VIAL 20 MG IV PUSH (20:33)
[2023-12-16] MEDS: INSULIN GLARGINE (*BKC) 100 UNITS/ML 46 UNITS SUB-Q (20:37)
[2023-12-16] MEDS: ENOXAPARIN 100 MG/ML SYRINGE SUB-Q (21:10)
[2023-12-16 21:49] LABS: Glucose Point of Care 128 mg/dl (65-105)
[2023-12-17] VITALS (12 sets, daily range): BP systolic 108–122; BP diastolic 62–90; PULSE 99–128; RESP 18–22; TEMP 36.1–36.6; O2SAT 94–99
[2023-12-17 07:14] LABS: Basophils Absolute Auto 0.1 K/mm3 (0.0-0.1); Basophils Percent Auto 0.5 % (0.2-1.2); Eosinophils Absolute Auto 0.2 K/mm3 (0-0.3); Eosinophils Percent Auto 1.6 % (0-4.4); Hematocrit 48.8 % (37.0-47.0); Hemoglobin 15.8 g/dL (12.0-15.0); Immature Granulocyte Absolute 0.07 K/mm3 (0.00-0.031); Immature Granulocyte Percent A 0.8 % (0-0.5); Lymphocytes Absolute Auto 3.45 K/mm3 (0.9-3.2); Lymphocytes Percent Auto 37.8 % (18.3-44.2); Mean Corpuscular HGB Conc 32.4 g/dl (32-36); Mean Corpuscular Hemoglobin 28.6 pg (26-34); Mean Corpuscular Volume 88.4 fl (80-100); Mean Platelet Volume 9.4 fl (7.4-10.4); Monocytes Absolute Auto 0.6 K/mm3 (0.1-0.6); Neutrophils Absolute Auto 4.9 K/mm3 (1.3-6.7); Neutrophils Percent Auto 53.3 % (45.5-73.1); Platelet Count Result 287 k/mm3 (150-375); Red Blood Count 5.52 M/mm3 (4.2-5.4); Red Cell Distribution Width 15.3 % (11.5-14.5); White Blood Count 9.1 K/mm3 (4.5-10.0)
[2023-12-17 07:34] LABS: Anion Gap 3 mmol/L (8-16); Blood Urea Nitrogen 13 mg/dL (7-17); Calcium 8.6 mg/dL (8.4-10.2); Carbon Dioxide 30 mmol/L (22-30); Chloride 101 mmol/L (98-107); Estimated CRCL calculation 87 ml/min; Estimated Glomerular Filt Rate > 60; Glucose 106 mg/dL (65-110); Potassium 4.5 mmol/L (3.4-5.0); Sodium 134 mmol/L (137-145)
[2023-12-17 07:48] LABS: Procalcitonin 0.1 ng/mL
[2023-12-17 08:26] LABS: Glucose Point of Care 102 mg/dl (65-105)
[2023-12-17] MEDS: IPRATROPIUM 0.5 MG/ALBUTEROL SULFATE 2.5 MG AMPUL.NEB 3 ML INHALATION ×3 (08:41→21:00)
[2023-12-17] MEDS: FAMOTIDINE 20 MG TABLET 40 MG PO (09:04)
[2023-12-17] MEDS: GABAPENTIN 400 MG CAPSULE 800 MG PO ×3 (09:04→18:03)
[2023-12-17] MEDS: METOPROLOL TARTRATE 25 MG TABLET PO (09:05)
[2023-12-17] MEDS: PRIMIDONE 250 MG TABLET PO ×2 (09:05→21:04)
[2023-12-17] MEDS: ATORVASTATIN 40 MG TABLET PO (09:05)
[2023-12-17] MEDS: CITALOPRAM HYDROBROMIDE 20 MG TABLET 40 MG PO (09:05)
[2023-12-17] MEDS: NORTRIPTYLINE HCL 25 MG CAPSULE PO ×3 (09:10→21:07)
[2023-12-17] MEDS: ENOXAPARIN 100 MG/ML SYRINGE SUB-Q (09:10)
[2023-12-17] MEDS: NICOTINE (*PBKC) 21 MG PATCH 1 PATCH TRANSDERM (09:10)
[2023-12-17] MEDS: INSULIN GLARGINE (*BKC) 100 UNITS/ML 42 UNITS SUB-Q (09:21)
[2023-12-17 12:46] LABS: Glucose Point of Care 121 mg/dl (65-105)
--- NOTE | 2023-12-17 15:19 | PM.CNCAR ---
Assessment and Plan Assessment and plan (1) Atrial flutter with rapid ventricular response: Code(s): I48.92 - Unspecified atrial flutter Status: Acute Assessment and Plan: New diagnosis atrial flutter with RVR symptomatic patient suspects for approximately 2 months however duration remains unknown. Nonetheless, patient presented in atrial flutter refractory to medical therapy this time. She has been started on systemic anticoagulation with enoxaparin. I discussed management options in great length including medications, elective cardioversion to restore sinus rhythm. We discussed risk for embolic stroke versus bleeding risk. Patient at high risk for bleeding complications due to recurrent falls as discussed. I explained my great concern in this regard yet patient is at elevated risk for stroke CHADS2 Vasc score 5 to which systemic anticoagulation would otherwise be advised to reduce risk for embolic stroke. We discussed this at great length. Ideally, initiation of systemic anticoagulation is relatively contraindicated, however, within a very well option with regards to management and significant risk for tachycardia induced cardiomyopathy over time if we are unable to control her heart rate and/or rhythm safely. Presence of an intracardiac thrombus remains unknown due to the duration suspected of her atrial flutter in her risk profile. I have advised BENJI guided cardioversion attempt to restore sinus rhythm exclude left atrial appendage thrombus prior to cardioversion. This should be performed with the assistance of Anesthesiology given the patient's morbid obesity, underlying lung disease and O2 dependence at this time. Patient verbalized understanding and agreed with plan of care. I discussed potential catastrophic nature of falls bleeding complications particularly hitting her head. She verbalized understanding and wishes to proceed with management as suggested. We may transition enoxaparin to Eliquis 5 mg twice daily beginning this evening as patient received 100 mg enoxaparin this morning at 9:10 a.m.. Continue telemetry Increase metoprolol tartrate to 50 mg twice daily for now. NPO after midnight in anticipation for BENJI guided cardioversion with the assistance of Anesthesiology. Discussed risks, benefits, and alternatives at length. All questions answered to her satisfaction. She verbalized understanding and agreed with plan of care. We also discussed preference for referral for left atrial occlusion device considerations which control we then outpatient basis at an outside facility. Patient verbalized understanding. Recommend PT OT evaluation to assess stability, fall risk and best plan of care in order to further reduce this risk including suggestions for rehabilitation. (2) Hypertension: Code(s): I10 - Essential (primary) hypertension Status: Acute Assessment and Plan: BP reasonably controlled. Continue metoprolol which increased to 50 mg twice daily. Reportedly she taking as an outpatient which has not been restarted this hospitalization. (3) Frequent falls: Code(s): R29.6 - Repeated falls Status: Acute Assessment and Plan: As above, we discussed at great length concern with regards to history falls and relative contraindication anticoagulation. 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 Also PT OT evaluation to assess recommendations to reduce risk for falls due for (4) T2DM (type 2 diabetes mellitus): Code(s): E11.9 - Type 2 diabetes mellitus without complications Status: Acute Assessment and Plan: Management per primary service. She remains on Lantus insulin. (5) Morbid obesity with BMI of 60.0-69.9, adult: Code(s): E66.01 - Morbid (severe) obesity due
--- NOTE | 2023-12-17 16:28 | PM.IMPN ---
Progress Note: A&P Assessment and Plan (1) Atrial tachycardia: Code(s): I47.19 - Other supraventricular tachycardia Status: Acute Plan A 63-year-old female with a history of morbid obesity, COPD, tobacco dependence, insulin-dependent diabetes mellitus, peripheral diabetic neuropathy, restless leg syndrome, venous stasis, dyslipidemia, hypertension presents from her PCP Dr. Steinberg as she had a elevated heart rate. She reports she has had nervousness and feeling of heart racing for about 2 weeks with increasing shortness of breath to which her inhalers did not help. In the emergency department she was found to have atrial tachycardia/flutter to the 130s. She was given metoprolol IV pushes and heart rate came down to the 120s. Still, she was admitted to [facility] with tele. CTA chest without evidence of PE but possible pneumonia versus edema. Flu COVID RSV screens negative. Patient reports chronic weakness using an electric wheelchair to get around. She also reports falling out of bed on many occasions. She also falls out of her wheelchair sometimes. Continue telemetry and give IV metoprolol 5 mg x 1 and start metoprolol 25 mg p.o. b.i.d.. Surface echo pending. She has some pulmonary edema which may be more related to the elevated heart rate however she does complain of orthopnea for many months. She has lower extremity edema chronically and thinks that today it is actually the least it has been. Give Lasix 20 mg IV x1. For suspected pneumonia based on imaging and leukocytosis will start ceftriaxone and azithromycin. As for her wheezing this is probably a cardiac wheeze but she does have ongoing tobacco abuse and she has not radiated quit. Nicotine patch, DuoNeb scheduled. On 12/17 -breathing is improved although she remains on 1 L nasal cannula. Continue Lasix. Continue DuoNebs as well. She is NPO at midnight for BENJI guided cardioversion. Metoprolol has been increased to 50 mg p.o. twice daily. Use IV metoprolol 2.5-5 mg IV p.r.n. for RVR. Patient remains on Lovenox therapeutic dose in and we would like to switch to Eliquis however she is undecided if she wants to wean down her primidone as there is a significant interaction. Will encourage again hopefully we can start to wean this down. FEN: Saline lock IV. Cardiac diabetic diet. NPO midnight GI prophylaxis: Not indicated DVT prophylaxis: Therapeutic Lovenox dosing Lines: Peripheral IV Code Status: Full code Dispo: Stable Subjective Date/time seen: 12/17/23 16:28 Interval history: No acute overnight events. Patient reports still feeling weak. She believes her breathing is better. Denies chest pain Review of Systems Review of Systems: All systems reviewed & are unremarkable except as noted in HPI and below (Subjective) Exam Const: General: comfortable and no acute distress Other: A&O x3. Eyes: Pupils: Equal, round and reactive pupils present Neck: Neck: supple Resp: Effort & Inspection: normal respiratory effort Auscultation: crackles Cardio: Rate: tachycardic Rhythm: regular rhythm Heart sounds: no gallops, no murmurs and no rubs GI: GI Palp: Yes Soft to palpation and No Tenderness to palpation present (GI) Extrem: General: edema (With chronic venous stasis changes and tender to palpation.) Objective Data Vital Signs Vital Signs: Vital Signs - 24 hr 12/16/23 18:39 12/16/23 20:00 12/16/23 20:00 Temperature 97.6 F Pulse Rate 134 H 125 H Respiratory Rate 22 H Blood Pressure 118/81 Pulse Oximetry 92 96 Oxygen Delivery Nasal Cannula Oxygen Flow Rate 1 12/17/23 00:00 12/16/23 20:00 12/17/23 00:00 Temperature 98 F Pulse Rate 119 H 126 H 112 H Respiratory Rate 22 H Blood Pressure 119/62 Pulse Oximetry 96 Oxygen Delivery Oxygen Flow Rate 12/17/23 04:00 12/17/23 04:00 12/17/23 08:00 Temperature 97.9 F 97.5 F L Pulse Rate 123 H 122 H 122 H Respiratory Rate 22 H 19 Blood Pressur
[2023-12-17 16:51] LABS: Glucose Point of Care 134 mg/dl (65-105)
[2023-12-17] MEDS: AZITHROMYCIN 250 MG TABLET 500 MG PO (18:03)
[2023-12-17] MEDS: rOPINIRole HCL 1 MG TABLET 3 MG PO (21:04)
[2023-12-17] MEDS: oxyBUTYnin CHLORIDE 5 MG TABLET PO (21:04)
[2023-12-17] MEDS: METOPROLOL TARTRATE 50 MG TAB PO (21:04)
[2023-12-17] MEDS: ENOXAPARIN 120 MG/0.8 ML SYRINGE SUB-Q (21:04)
[2023-12-17] MEDS: INSULIN GLARGINE (*BKC) 100 UNITS/ML 46 UNITS SUB-Q (21:10)
[2023-12-17 21:17] LABS: Glucose Point of Care 184 mg/dl (65-105)
[2023-12-18] VITALS (17 sets, daily range): BP systolic 105–141; BP diastolic 58–96; PULSE 65–125; RESP 12–20; TEMP 35.4–36.9; O2SAT 94–99
[2023-12-18] MEDS: IPRATROPIUM 0.5 MG/ALBUTEROL SULFATE 2.5 MG AMPUL.NEB 3 ML INHALATION ×3 (07:24→20:47)
[2023-12-18 08:54] LABS: Glucose Point of Care 109 mg/dl (65-105)
--- NOTE | 2023-12-18 09:04 | PM.IMPN ---
Progress Note: A&P Assessment and Plan (1) COPD (chronic obstructive pulmonary disease): Code(s): J44.9 - Chronic obstructive pulmonary disease, unspecified Status: Acute (2) Atrial tachycardia: Code(s): I47.19 - Other supraventricular tachycardia Status: Acute (3) T2DM (type 2 diabetes mellitus): Code(s): E11.9 - Type 2 diabetes mellitus without complications Status: Acute (4) Diabetes mellitus with hyperglycemia: Code(s): E11.65 - Type 2 diabetes mellitus with hyperglycemia Status: Acute (5) Morbid obesity with BMI of 60.0-69.9, adult: Code(s): E66.01 - Morbid (severe) obesity due to excess calories; Z68.44 - Body mass index [BMI] 60.0-69.9, adult Status: Acute (6) Atrial flutter with rapid ventricular response: Code(s): I48.92 - Unspecified atrial flutter Status: Acute Plan A 63-year-old female with a history of morbid obesity, COPD, tobacco dependence, insulin-dependent diabetes mellitus, peripheral diabetic neuropathy, restless leg syndrome, venous stasis, dyslipidemia, hypertension presents from her PCP Dr. Steinberg as she had a elevated heart rate.? She reports she has had nervousness and feeling of heart racing for about 2 weeks with increasing shortness of breath to which her inhalers did not help. Atrial flutter and ventricular tachycardia In the emergency department she was found to have atrial tachycardia/flutter to the 130s.? She was given metoprolol IV pushes and heart rate came down to the 120s.? Still, she was admitted to [facility] with tele.? CTA chest without evidence of PE but possible pneumonia versus edema.? Flu COVID RSV screens negative. Patient reports chronic weakness using an electric wheelchair to get around.? She also reports falling out of bed on many occasions.? She also falls out of her wheelchair sometimes.? Continue telemetry and give IV metoprolol 5 mg x 1 and start metoprolol 25 mg p.o. b.i.d..? Surface echo pending.? She has some pulmonary edema which may be more related to the elevated heart rate however she does complain of orthopnea for many? months.? She has lower extremity edema chronically and thinks that today it is actually the least it has been.? Give Lasix 20 mg IV x1.? On 12/17 -breathing is improved although she remains on 1 L nasal cannula.? Continue Lasix.? Continue DuoNebs as well.? She is NPO at midnight for BENJI guided cardioversion.? Metoprolol has been increased to 50 mg p.o. twice daily.? Use IV metoprolol 2.5-5 mg IV p.r.n. for RVR.? Patient remains on Lovenox therapeutic dose in and we would like to switch to Eliquis however she is undecided if she wants to wean down her primidone as there is a significant interaction.? Will encourage again hopefully we can start to wean this down. 12/18: Patient underwent electric cardioversion, now patient has sinus rhythm, no complications. Patient blood pressure stable, patient denies headache, focal weakness vision change 12/18 Echocardiogram reports ? 1. Definity contrast administered improved wall motion interpretation. ? 2. Left ventricular chamber dimension is normal. ? 3. Left ventricular systolic function is normal, estimated at 60-65%. ? 4. There is mild concentric increased left ventricular wall thickness. ? 5. The left ventricular diastolic function is abnormal. ? 6. E/e' 16 is elevated. ? 7. Left atrial chamber dimension is mildly enlarged. ? 8. There is mild aortic valve sclerosis. ? 9. The mitral valve has mildly calcified annulus. ? 10. No pulmonary hypertension, estimated pulmonary arterial systolic pressure is 28 mmHg. 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 Community-acquired pneumonia, possible COPD exacerbation X-ray suggests pneumonia based Patient has leukocytosis start ceftriaxone and azithromycin.? Patient is wheezing patient use tobacco
[2023-12-18] MEDS: NICOTINE (*PBKC) 21 MG PATCH 1 PATCH TRANSDERM (09:13)
[2023-12-18 10:46] LABS: Alanine Aminotransferase 14 U/L (6-35); Albumin Level 3.4 g/dL (3.5-5.1); Alkaline Phosphatase 82 U/L (38-126); Anion Gap 5 mmol/L (8-16); Aspartate Amino Transferase 18 U/L (14-36); Bilirubin,Total 0.4 mg/dL (0.2-1.3); Blood Urea Nitrogen 16 mg/dL (7-17); Calcium 8.8 mg/dL (8.4-10.2); Carbon Dioxide 30 mmol/L (22-30); Chloride 103 mmol/L (98-107); Estimated CRCL calculation 97 ml/min; Estimated Glomerular Filt Rate > 60; Glucose 97 mg/dL (65-110); Magnesium 2.2 mg/dL (1.6-2.3); Phosphorus 4.4 mg/dL (2.5-4.5); Potassium 4.8 mmol/L (3.4-5.0); Sodium 138 mmol/L (137-145)
--- NOTE | 2023-12-18 13:04 | ECG_ITS ---
Measurements Intervals [place] Rate: 125 P: [place]: 0 QRS: -16 QRSD: 96 T: 55 QT: 294 QTc: 424 Interpretive Statements ATRIAL FLUTTER/TACHYCARDIA WITH RAPID VENTRICULAR RESPONSE LOW QRS VOLTAGE IN EXTREMITY LEADS [QRS DEFLECTION < 0.5 mV IN LIMB LEADS] INFERIOR MYOCARDIAL INFARCTION , PROBABLY OLD [40+ ms Q WAVE AND/OR ST/T ABNORMALITY IN II/aVF] COMPARED TO ECG 12/15/2023 20:24:45 NO SIGNIFICANT CHANGES Electronically Signed On 12-18-2023 14:06:34 PROSTHETICS LAB TECHNICIAN by Bobby Terry M.D.
[2023-12-18 14:00] LABS: Glucose Point of Care 85 mg/dl (65-105)
--- NOTE | 2023-12-18 14:09 | PM.PNCARD ---
Progress Note: A&P Assessment and Plan (1) Atrial flutter with rapid ventricular response: Code(s): I48.92 - Unspecified atrial flutter Status: Acute Assessment and Plan: Successful BENJI-guided cardioversion to sinus rhythm. Continue Metoprolol 50mg BID. Will transition therapeutic Lovenox to Eliquis 5mg BID. (2) Hypertension: Code(s): I10 - Essential (primary) hypertension Status: Acute Assessment and Plan: BP reasonably controlled.? (3) Frequent falls: Code(s): R29.6 - Repeated falls Status: Acute Assessment and Plan: As above, we discussed at great length concern with regards to history falls and relative contraindication anticoagulation.? However, given the need for cardioversion, she must remain on anticoagulation for at least 30 days after cardioversion. (4) T2DM (type 2 diabetes mellitus): Code(s): E11.9 - Type 2 diabetes mellitus without complications Status: Acute Assessment and Plan: Management per primary service.? She remains on Lantus insulin. (5) Morbid obesity with BMI of 60.0-69.9, adult: Code(s): E66.01 - Morbid (severe) obesity due to excess calories; Z68.44 - Body mass index [BMI] 60.0-69.9, adult Status: Acute Assessment and Plan: Weight loss, lifestyle modification counseling. (6) COPD (chronic obstructive pulmonary disease): Code(s): J44.9 - Chronic obstructive pulmonary disease, unspecified Status: Acute Assessment and Plan: Wean O2 as tolerated.? Continue bronchodilator therapy is appropriate.? She remains on IV azithromycin and ceftriaxone for possible underlying pneumonia.? Subjective Date/time seen: 12/18/23 14:09 Interval history: Reason for visit: Atrial flutter with RVR HPI: Patient is a pleasant 63-year-old female with past medical history significant for morbid obesity, COPD/emphysema tobacco abuse, type 2 diabetes mellitus, peripheral neuropathy, hyperlipidemia, hypertension, history of CAD status post remote stent who presented the emergency department complaints of signs of generalized shaking position found her to be tachycardic in atrial flutter for to the emergency department.? Patient states she believes the past 2 months she has been experiencing generally she being and intermittent awareness of palpitations or fluttering.? States she is chronically short of breath notes for the past 2-3 days prior to admission she had particularly more short of breath.? She not new for her.? She does not wear oxygen at home.? She denies history of apnea states she was tested in the past Kevin not have sleep apnea.? She denies chest pain, near-syncope or syncope.? She has had multiple falls she attributes to either ruling out of bed while she is asleep before her knees locking up causing her to lose balance.? She denies any association with dizziness lightheadedness near-syncope syncope as contribution.? She states she has had 5 falls over the past month but is never herself, hit her head or had any other fractures.? She is currently in atrial flutter with RVR heart rates approximately 120 beats per minute she is a new diagnosis.? She has been started on systemic anticoagulation with enoxaparin 1 milligram/kilogram subcutaneous q.12 hours and feels a little bit better in that she has less shaky.? She denies prior history of stroke bleeding complications other than bruising with her falls.? She states she believes this all started 2 months ago after she had necrotizing fasciitis with surgical debridement.? Chest x-ray suggested mild pulmonary edema and her echocardiogram this admission revealed preserved LV systolic function EF 60-65%, mild left atrial enlargement no MR/TR yet pulmonary pressures were estimated at 28 mmHg. Date of service 12/18: Remains in atrial flutter with RVR. BENJI guided DCCV today. Review of Systems Review of Systems: All systems reviewed & are unremarkable except as noted in
[2023-12-18] MEDS: ENOXAPARIN 120 MG/0.8 ML SYRINGE SUB-Q (14:15)
--- NOTE | 2023-12-18 14:16 | WPDANESEPPF ---
Anes - Initial Pre Proc Eval Procedure: Operation Date: 12/18/23 14:30 Proposed Procedures p Trans Esophageal Echo BENJI - Bobby Terry MD s Electrical Cardioversion - Bobby Terry MD Date/Time: 12/18/23 14:16 Surgeon: Julia Renee MD Pre Op Diagnosis: Afib with RVR Patient Data Age: 63 Gender: F Height: 1.6 m Weight: 164.5 kg Last Vital Signs Temp 35.4 C L 12/18/23 12:00 Pulse 117 H 12/18/23 13:15 Resp 20 12/18/23 13:15 BP 119/80 12/18/23 12:00 Pulse Ox 97 12/18/23 12:00 O2 Del Method Nasal Cannula 12/18/23 08:00 O2 Flow Rate 1 12/18/23 08:00 Allergies Allergy/AdvReac Type Severity Reaction Status Date / Time morphine Allergy Severe Swelling Verified 12/16/23 14:17 of Lip/Tongue/Throat Home Medications Medication Instructions Recorded Confirmed Type atorvastatin 40 mg tablet 40 mg PO DAILY 08/09/23 12/15/23 History citalopram 40 mg tablet 40 mg PO DAILY 08/09/23 12/15/23 History ergocalciferol (vitamin D2) 1,250 1,250 mcg PO WEEKLY 08/09/23 12/15/23 History mcg (50,000 unit) capsule (Vitamin D2) famotidine 40 mg tablet 40 mg PO DAILY 08/09/23 12/15/23 History gabapentin 800 mg tablet 800 mg PO TID 08/09/23 12/15/23 History lisinopril 30 mg tablet 30 mg PO DAILY 08/09/23 12/15/23 History meloxicam 15 mg tablet 15 mg PO DAILY 08/09/23 12/15/23 History nortriptyline 25 mg capsule 25 mg PO TID 08/09/23 12/15/23 History oxybutynin chloride 5 mg tablet 5 mg PO HS 08/09/23 12/15/23 History primidone 250 mg tablet 250 mg PO BID 08/09/23 12/15/23 History ropinirole 3 mg tablet 3 mg PO HS 08/09/23 12/15/23 History budesonide-formoterol HFA 160 1 puff inhalation BID PRN 08/14/23 12/15/23 History mcg-4.5 mcg/actuation aerosol Shortness Of Breath inhaler (Symbicort) dulaglutide 1.5 mg/0.5 mL 1.5 mg subcut WEEKLY 12/15/23 12/15/23 History subcutaneous pen injector (Trulicity) insulin glargine 100 unit/mL (3 42 unit subcut QAM 12/15/23 12/15/23 History mL) subcutaneous pen (Basaglar KwikPen U-100 Insulin) insulin glargine 100 unit/mL (3 46 unit subcut QHS 12/15/23 12/15/23 History mL) subcutaneous pen (Basaglar KwikPen U-100 Insulin) metformin 500 mg tablet 500 mg PO TID 12/15/23 12/15/23 History tolnaftate 1 % topical powder 1 applic topical Q12HR PRN Rash 12/15/23 12/15/23 History Laboratory Tests 12/17/23 12/17/23 12/18/23 16:46 21:02 08:26 Sodium Potassium Chloride Carbon Dioxide Anion Gap BUN Creatinine Estim Creat Clear Calc Estimated GFR Glucose POC Capillary Glucose 134 H mg/dl 184 H mg/dl 109 H mg/dl (65-105) (65-105) (65-105) Calcium Phosphorus Magnesium Total Bilirubin AST ALT Alkaline Phosphatase Total Protein Albumin 12/18/23 12/18/23 12/18/23 10:14 10:14 10:14 Sodium Cancelled 138 mmol/L (137-145) Potassium Cancelled 4.8 mmol/L (3.4-5.0) Chloride Cancelled Carbon Dioxide Anion Gap BUN Creatinine Estim Creat Clear Calc Estimated GFR Glucose POC Capillary Glucose Calcium Phosphorus Magnesium Total Bilirubin AST ALT Alkaline Phosphatase Total Protein Albumin 12/18/23 12/18/23 12/18/23 10:14 10:14 10:14 Sodium Potassium Chloride 103 mmol/L (98-107) Carbon Dioxide Cancelled 30 mmol/L (22-30) Anion Gap Cancelled 5 L mmol/L (8-16) BUN Cancelled Creatinine Estim Creat Clear Calc Estimated GFR Glucose
--- NOTE | 2023-12-18 14:37 | ECG_ITS ---
Measurements Intervals [place] Rate: 78 P: 48 [place]: 194 QRS: 9 QRSD: 108 T: 38 QT: 385 QTc: 439 Interpretive Statements POOR ECG QUALITY BECAUSE OF MOTION ARTIFACT SINUS RHYTHM POSSIBLE LEFT ATRIAL ENLARGEMENT [-0.1mV P WAVE IN V1/V2] CONSIDER PREVIOUS INFERIOR INFARCTION LOW QRS VOLTAGE IN PRECORDIAL LEADS [QRS DEFLECTION < 1.0 mV IN CHEST LEADS] 12/18/2023 13:14:53 ABNORMAL ECG COMPARED WITH 12/18/2023 HEART RATE REDUCED Electronically Signed On 12-19-2023 7:02:50 INFRASTRUCTURE SECURITY ARCHITECT by Ivan Goldberg M.D.
[2023-12-18] MEDS: PERFLUTREN LIPID MICROSPHERES 1.5 ML VIAL DILUTED TO 10 ML TOTAL VOLUME IV PUSH (14:45)
--- NOTE | 2023-12-18 14:52 | P.PCNTEECA_ITS ---
BENJI with Cardioversion Date of procedure: 12/18/23 Procedure Type: Date of Procedure: 12/18/2023 Brief History Of Present Illness: Patient is a pleasant 63 year old female who is referred for BENJI-guided DCCV. Indication For Procedure: Atrial flutter with RVR. Procedure In Detail: After verbal and written informed consent was obtained, the patient risks, benefits, and alternatives explained in detail. The patient agreed to proceed with the plan of care as outlined above.?See pre-sedation note for further details. Patient was monitored throughout the study with telemetry, oxygen saturation, end-tidal CO2 monitoring, blood pressure, heart rate, and respirations.? The posterior hypopharynx was then locally anesthetized using repeated administration of Hurricaine spray as well as gargled viscous lidocaine.? After local anesthetic of the posterior hypopharynx was achieved and the oral bite block placed, sedation was administered by the Anesthesia team.? After confirmation of adequate sedation, the transesophageal echocardiogram probe was advanced through the oral bite block into the posterior hypopharynx and into the esophagus easily and without complication.? Multiple, multiplanar echocardiographic images were obtained in multiple standard re- projections.? At the conclusion of the study, the transesophageal echocardiogram probe was removed easily and without complication.? The patient tolerated the procedure well without difficulty.? Moderate Sedation/Anesthesia administration: Sedation administered by the Anesthesia team. FINDINGS: LEFT ATRIAL APPENDAGE: Anatomically normal structure with prominent pectinate muscles without thrombus or vegetation identified. Definity was administered for better visualization and to definitively rule out thrombus. CARDIOVERSION: Defibrillator pads were placed in an anteroposterior position. Synchronized electrical cardioversion was performed with 1 shock at 250 joules, which succe ssfully cardioverted the patient to sinus rhythm. COMPLICATIONS: None
[2023-12-18 16:18] LABS: Glucose Point of Care 96 mg/dl (65-105)
[2023-12-18] MEDS: ACETAMINOPHEN 500 MG TABLET 1000 MG PO (17:13)
[2023-12-18] MEDS: GABAPENTIN 400 MG CAPSULE 800 MG PO (17:13)
[2023-12-18] MEDS: AZITHROMYCIN 250 MG TABLET 500 MG PO (17:13)
[2023-12-18 20:29] LABS: Glucose Point of Care 202 mg/dl (65-105)
[2023-12-18] MEDS: oxyBUTYnin CHLORIDE 5 MG TABLET PO (20:44)
[2023-12-18] MEDS: METOPROLOL TARTRATE 50 MG TAB PO (20:44)
[2023-12-18] MEDS: NORTRIPTYLINE HCL 25 MG CAPSULE PO (20:44)
[2023-12-18] MEDS: INSULIN GLARGINE (*BKC) 100 UNITS/ML 46 UNITS SUB-Q (20:44)
[2023-12-18] MEDS: rOPINIRole HCL 1 MG TABLET 3 MG PO (20:45)
[2023-12-18] MEDS: PRIMIDONE 250 MG TABLET PO (20:45)
[2023-12-19] VITALS (10 sets, daily range): BP systolic 125–139; BP diastolic 60–79; PULSE 54–71; RESP 13–20; TEMP 35.8–36.1; O2SAT 94–98
[2023-12-19] MEDS: ENOXAPARIN 120 MG/0.8 ML SYRINGE SUB-Q (00:51)
[2023-12-19] MEDS: IPRATROPIUM 0.5 MG/ALBUTEROL SULFATE 2.5 MG AMPUL.NEB 3 ML INHALATION ×3 (02:48→13:20)
[2023-12-19] MEDS: ACETAMINOPHEN 500 MG TABLET 1000 MG PO ×2 (03:21→11:00)
[2023-12-19 07:17] LABS: Anion Gap 5 mmol/L (8-16); Blood Urea Nitrogen 18 mg/dL (7-17); Calcium 8.6 mg/dL (8.4-10.2); Carbon Dioxide 29 mmol/L (22-30); Chloride 102 mmol/L (98-107); Estimated CRCL calculation 79 ml/min; Estimated Glomerular Filt Rate 56; Glucose 103 mg/dL (65-110); Magnesium 2.4 mg/dL (1.6-2.3); Potassium 4.6 mmol/L (3.4-5.0); Sodium 136 mmol/L (137-145)
[2023-12-19 08:07] LABS: Glucose Point of Care 109 mg/dl (65-105)
[2023-12-19] MEDS: FLUTICASONE/SALMETEROL 115-21 MCG INHALER 1 PUFF 2 PUFF INHALATION (08:14)
--- NOTE | 2023-12-19 08:22 | PM.IMPN ---
Progress Note: A&P Assessment and Plan (1) COPD (chronic obstructive pulmonary disease): Code(s): J44.9 - Chronic obstructive pulmonary disease, unspecified Status: Acute (2) Atrial tachycardia: Code(s): I47.19 - Other supraventricular tachycardia Status: Acute (3) T2DM (type 2 diabetes mellitus): Code(s): E11.9 - Type 2 diabetes mellitus without complications Status: Acute (4) Diabetes mellitus with hyperglycemia: Code(s): E11.65 - Type 2 diabetes mellitus with hyperglycemia Status: Acute (5) Morbid obesity with BMI of 60.0-69.9, adult: Code(s): E66.01 - Morbid (severe) obesity due to excess calories; Z68.44 - Body mass index [BMI] 60.0-69.9, adult Status: Acute (6) Atrial flutter with rapid ventricular response: Code(s): I48.92 - Unspecified atrial flutter Status: Acute Plan A 63-year-old female with a history of morbid obesity, COPD, tobacco dependence, insulin-dependent diabetes mellitus, peripheral diabetic neuropathy, restless leg syndrome, venous stasis, dyslipidemia, hypertension presents from her PCP Dr. Steinberg as she had a elevated heart rate.? She reports she has had nervousness and feeling of heart racing for about 2 weeks with increasing shortness of breath to which her inhalers did not help. Atrial flutter and ventricular tachycardia In the emergency department she was found to have atrial tachycardia/flutter to the 130s.? She was given metoprolol IV pushes and heart rate came down to the 120s.? Still, she was admitted to [facility] with tele.? CTA chest without evidence of PE but possible pneumonia versus edema.? Flu COVID RSV screens negative. Patient reports chronic weakness using an electric wheelchair to get around.? She also reports falling out of bed on many occasions.? She also falls out of her wheelchair sometimes.? Continue telemetry and give IV metoprolol 5 mg x 1 and start metoprolol 25 mg p.o. b.i.d..? Surface echo pending.? She has some pulmonary edema which may be more related to the elevated heart rate however she does complain of orthopnea for many? months.? She has lower extremity edema chronically and thinks that today it is actually the least it has been.? Give Lasix 20 mg IV x1.? On 12/17 -breathing is improved although she remains on 1 L nasal cannula.? Continue Lasix.? Continue DuoNebs as well.? She is NPO at midnight for BENJI guided cardioversion.? Metoprolol has been increased to 50 mg p.o. twice daily.? Use IV metoprolol 2.5-5 mg IV p.r.n. for RVR.? Patient remains on Lovenox therapeutic dose in and we would like to switch to Eliquis however she is undecided if she wants to wean down her primidone as there is a significant interaction.? Will encourage again hopefully we can start to wean this down. 12/18: Patient underwent electric cardioversion, now patient has sinus rhythm, no complications. Patient blood pressure stable, patient denies headache, focal weakness vision change 12/18 Echocardiogram reports ? 1. Definity contrast administered improved wall motion interpretation. ? 2. Left ventricular chamber dimension is normal. ? 3. Left ventricular systolic function is normal, estimated at 60-65%. ? 4. There is mild concentric increased left ventricular wall thickness. ? 5. The left ventricular diastolic function is abnormal. ? 6. E/e' 16 is elevated. ? 7. Left atrial chamber dimension is mildly enlarged. ? 8. There is mild aortic valve sclerosis. ? 9. The mitral valve has mildly calcified annulus. ? 10. No pulmonary hypertension, estimated pulmonary arterial systolic pressure is 28 mmHg. 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 12/19: Continue metoprolol 50 mg q.12 hours p.o., Eliquis 5 mg q.12 hours p.o. discontinue Lovenox 1 milligram/kg q.12 hours Community-acquired pneumonia, possible COPD exacerbation X-ray sugges
[2023-12-19] MEDS: METOPROLOL TARTRATE 50 MG TAB PO (08:26)
[2023-12-19] MEDS: APIXABAN 5 MG TABLET PO (08:26)
[2023-12-19] MEDS: NICOTINE (*PBKC) 21 MG PATCH 1 PATCH TRANSDERM (08:26)
[2023-12-19] MEDS: PRIMIDONE 250 MG TABLET PO (08:26)
[2023-12-19] MEDS: FAMOTIDINE 20 MG TABLET 40 MG PO (08:26)
[2023-12-19] MEDS: ATORVASTATIN 40 MG TABLET PO (08:26)
[2023-12-19] MEDS: GABAPENTIN 400 MG CAPSULE 800 MG PO (08:26)
[2023-12-19] MEDS: CITALOPRAM HYDROBROMIDE 20 MG TABLET 40 MG PO (08:26)
[2023-12-19] MEDS: NORTRIPTYLINE HCL 25 MG CAPSULE PO (08:29)
[2023-12-19] MEDS: INSULIN GLARGINE (*BKC) 100 UNITS/ML 42 UNITS SUB-Q (08:30)
--- NOTE | 2023-12-19 08:50 | PM.PNCARD ---
Progress Note: A&P Assessment and Plan (1) Atrial flutter with rapid ventricular response: Code(s): I48.92 - Unspecified atrial flutter Status: Acute Plan 63-year-old lady with morbid obesity and newly diagnosed patient's rhythm was atypical probably left atrial flutter with moderately rapid ventricular response. She is in sinus rhythm following cardioversion yesterday. Obviously we hope that metoprolol will be effective for this. Systemic anticoagulation with apixaban is in place. From cardiac perspective she can be discharged today. I will ensure that she has appropriate follow-up scheduled in the office. Ivan Goldberg MD [facility] Subjective Date/time seen: Date of service: 12/19/23 08:50 Interval history: Reason for visit: Atrial flutter with RVR HPI: Patient is a pleasant 63-year-old female with past medical history significant for morbid obesity, COPD/emphysema tobacco abuse, type 2 diabetes mellitus, peripheral neuropathy, hyperlipidemia, hypertension, history of CAD status post remote stent who presented the emergency department complaints of signs of generalized shaking position found her to be tachycardic in atrial flutter for to the emergency department.? Patient states she believes the past 2 months she has been experiencing generally she being and intermittent awareness of palpitations or fluttering.? States she is chronically short of breath notes for the past 2-3 days prior to admission she had particularly more short of breath.? She not new for her.? She does not wear oxygen at home.? She denies history of apnea states she was tested in the past Kevin not have sleep apnea.? She denies chest pain, near-syncope or syncope.? She has had multiple falls she attributes to either ruling out of bed while she is asleep before her knees locking up causing her to lose balance.? She denies any association with dizziness lightheadedness near-syncope syncope as contribution.? She states she has had 5 falls over the past month but is never herself, hit her head or had any other fractures.? She is currently in atrial flutter with RVR heart rates approximately 120 beats per minute she is a new diagnosis.? She has been started on systemic anticoagulation with enoxaparin 1 milligram/kilogram subcutaneous q.12 hours and feels a little bit better in that she has less shaky.? She denies prior history of stroke bleeding complications other than bruising with her falls.? She states she believes this all started 2 months ago after she had necrotizing fasciitis with surgical debridement.? Chest x-ray suggested mild pulmonary edema and her echocardiogram this admission revealed preserved LV systolic function EF 60-65%, mild left atrial enlargement no MR/TR yet pulmonary pressures were estimated at 28 mmHg. Date of service 12/18: Remains in atrial flutter with RVR. BENJI guided DCCV today. Date of service 12/19/2023: Patient is doing well and offers no cardiovascular complaints. Underwent BENJI guided cardioversion yesterday by Dr. Terry restoring sinus rhythm. Is being treated with metoprolol and apixaban. Submitting discharge Exam Narrative: General: Morbidly obese female in no apparent distress sitting upright in bed well developed, alert and oriented x3. No apparent distress, comfortable, pleasant, and cooperative. Head: atraumatic, normocephalic Eyes: EOM intact, sclerae anicteric, conjunctivae unremarkable Ears/Nose: external inspection of ears and nose were grossly normal Mouth/Throat: oral mucosa pink and moist Neck: supple, normal range of motion, no jugular venous distention or carotid bruits, thyroid nonpalpable, trachea midline. Cardiac: Tachycardic, regular rate and rhythm, normal S1-S2, no appreciable murmurs distant heart sounds Lungs: Diminished breath sounds diffusely, prolonged respiratory phase, diffuse expiratory wheezes, no rales Abdomen: Morbidly obese, soft, nontender, nondistend
[2023-12-19 11:35] LABS: Glucose Point of Care 173 mg/dl (65-105)
--- NOTE | 2023-12-19 11:55 | PM.DS ---
DS: Admitting Diagnosis Discharge Date 12/19/23 Admitting Diagnosis (1) COPD (chronic obstructive pulmonary disease): ?Code(s): J44.9 - Chronic obstructive pulmonary disease, unspecified ?Status:?Acute (2) Atrial tachycardia: ?Code(s): I47.19 - Other supraventricular tachycardia ?Status:?Acute (3) T2DM (type 2 diabetes mellitus): ?Code(s): E11.9 - Type 2 diabetes mellitus without complications ?Status:?Acute (4) Diabetes mellitus with hyperglycemia: ?Code(s): E11.65 - Type 2 diabetes mellitus with hyperglycemia ?Status:?Acute (5) Morbid obesity with BMI of 60.0-69.9, adult: ?Code(s): E66.01 - Morbid (severe) obesity due to excess calories; Z68.44 - Body mass index [BMI] 60.0-69.9, adult ?Status:?Acute (6) Atrial flutter with rapid ventricular response: ?Code(s): I48.92 - Unspecified atrial flutter ?Status:?Acute DS: Discharge Diagnosis Discharge Diagnosis (1) COPD (chronic obstructive pulmonary disease): Code(s): J44.9 - Chronic obstructive pulmonary disease, unspecified Status: Acute (2) Atrial tachycardia: Code(s): I47.19 - Other supraventricular tachycardia Status: Acute (3) T2DM (type 2 diabetes mellitus): Code(s): E11.9 - Type 2 diabetes mellitus without complications Status: Acute (4) Diabetes mellitus with hyperglycemia: Code(s): E11.65 - Type 2 diabetes mellitus with hyperglycemia Status: Acute (5) Morbid obesity with BMI of 60.0-69.9, adult: Code(s): E66.01 - Morbid (severe) obesity due to excess calories; Z68.44 - Body mass index [BMI] 60.0-69.9, adult Status: Acute (6) Atrial flutter with rapid ventricular response: Code(s): I48.92 - Unspecified atrial flutter Status: Acute DS: Summary Hospital Course Hospital Course: A 63-year-old female with a history of morbid obesity, COPD, tobacco dependence, insulin-dependent diabetes mellitus, peripheral diabetic neuropathy, restless leg syndrome, venous stasis, dyslipidemia, hypertension presents from her PCP Dr. Steinberg as she had a elevated heart rate.? She reports she has had nervousness and feeling of heart racing for about 2 weeks with increasing shortness of breath to which her inhalers did not help. The following med issues have been addressed during hospitalization Atrial flutter and ventricular tachycardia In the emergency department she was found to have atrial tachycardia/flutter to the 130s.? She was given metoprolol IV pushes and heart rate came down to the 120s.? Still, she was admitted to [facility] with tele.? CTA chest without evidence of PE but possible pneumonia versus edema.? Flu COVID RSV screens negative. Patient reports chronic weakness using an electric wheelchair to get around.? She also reports falling out of bed on many occasions.? She also falls out of her wheelchair sometimes.? Continue telemetry and give IV metoprolol 5 mg x 1 and start metoprolol 25 mg p.o. b.i.d..? Surface echo pending.? She has some pulmonary edema which may be more related to the elevated heart rate however she does complain of orthopnea for many? months.? She has lower extremity edema chronically and thinks that today it is actually the least it has been.? Give Lasix 20 mg IV x1.? On 12/17 -breathing is improved although she remains on 1 L nasal cannula.? Continue Lasix.? Continue DuoNebs as well.? She is NPO at midnight for BENJI guided cardioversion.? Metoprolol has been increased to 50 mg p.o. twice daily.? Use IV metoprolol 2.5-5 mg IV p.r.n. for RVR.? Patient remains on Lovenox therapeutic dose in and we would like to switch to Eliquis however she is undecided if she wants to wean down her primidone as there is a significant interaction.? Will encourage again hopefully we can start to wean this down. 12/18: Patient underwent electric cardioversion, now patient has sinus rhythm, no complications. Patient blood pressure stable, patient denies
== END 2023-12-19 14:18 | disposition home health service (06) | DRG 201 ==
LOC: ANHED 19:17 → ANH3MEDSUR 20:52
PROVIDERS: Emergency Medicine; General Practice; Internal Medicine; Nurse Practitioner Family; Admitting Provider Internal Medicine; Emergency Provider Physician Assistant; PCP Family Medicine; Visit Provider Hospitalist
PROC: 5A2204Z Restoration of Cardiac Rhythm, Single (ICD-10-PCS; CPT 93312; principal; 2023-12-18 14:30)
PROC: 5A2204Z Restoration of Cardiac Rhythm, Single (ICD-10-PCS; 2023-12-18 14:30)
DX: I48.92 Unspecified atrial flutter (principal); I48.91 Unspecified atrial fibrillation; I47.10 Supraventricular tachycardia, unspecified; E87.5 Hyperkalemia; F17.210 Nicotine dependence, cigarettes, uncomplicated; J18.9 Pneumonia, unspecified organism; J44.1 Chronic obstructive pulmonary disease with (acute) exacerbation; J44.0 Chronic obstructive pulmonary disease with (acute) lower respiratory infection; E78.5 Hyperlipidemia, unspecified; I10 Essential (primary) hypertension; E11.42 Type 2 diabetes mellitus with diabetic polyneuropathy; M17.10 Unilateral primary osteoarthritis, unspecified knee; G25.81 Restless legs syndrome; R29.6 Repeated falls; I87.8 Other specified disorders of veins; E66.01 Morbid (severe) obesity due to excess calories; Z68.44 Body mass index [BMI] 60.0-69.9, adult; Z95.5 Presence of coronary angioplasty implant and graft
CPT/HCPCS: 36415; 71046; 71275; 80048; 80053; 82948; 83690; 83735; 83880; 84100; 84145; 84484; 85025; 85380; 85610; 85730; 87637; 92960; 93005; 94640; 96361; 96374; 96376; 97161; 97166; 97530; 97535; 99285; A9270; C8925; C8929; G0378; G0379; J0696; J1650; J1815; J1940; J2704; J7030; J7040; Q9957; Q9967

== ENCOUNTER 2024-03-10 08:47 | Inpatient (IN) | payer OTHER, SELFPAY ==
[2024-03-10] VITALS (9 sets, daily range): BP systolic 108–187; BP diastolic 55–109; PULSE 74–89; RESP 16–23; TEMP 36.4–36.6; O2SAT 92–100; BMI 61.0
--- NOTE | ~2024-03-10 | XR_ITS ---
EXAMINATION: XR chest 2V DATE: 03/10/2024 09:38 INDICATION: Shortness of breath and weakness TECHNIQUE: frontal and lateral views of the chest were obtained. COMPARISON: Chest radiograph and CT dated 12/15/2023 FINDINGS: Interstitial and airspace opacities in the in the bilateral mid and lower lung zones, right greater t hayes left. No pneumothorax or definitive pleural effusion. The cardiomediastinal silhouette is within normal limits for AP technique. IMPRESSION: 1. Opacities in the bilateral mid and lower lung zones, right greater than left which could represent mild pulmonary edema or pneumonia. Reviewed, dictated and finalized at location A.
--- NOTE | ~2024-03-10 | CT_ITS ---
EXAMINATION: CTA chest PE protocol DATE: 03/10/2024 14:45 CDT INDICATION: Dyspnea. Elevated d-dimer. TECHNIQUE: Computed tomographic angiography (CTA) of the chest was performed with 100 mL Omnipaque-35 0 intravenous contrast. The dose-length product was 1174.67 mGy-cm. Maximum intensity projection 3D-r econstructions of the aorta and other arteries were constructed by the technologist on a separate wor kstation. Automated exposure control and iterative reconstruction technique were employed. COMPARISON: Chest x-ray dated 03/10/2020. FINDINGS: Heart size normal. No significant pleural or pericardial effusion. Study is technically day ited for evaluation of the lower lobe pulmonary arteries due to motion artifact. No large central pul monary embolism. Heart size normal. There is thoracic lymphadenopathy. There is extensive patchy airs pace disease bilaterally, most confluent in the right upper and lower lobes, consistent with pneumoni a. No endobronchial lesions. No pneumothorax. IMPRESSION: 1. No large central pulmonary embolism. Evaluation of the lower lobe pulmonary arteries limited by mo tion. 2: Extensive patchy bilateral airspace disease, compatible with pneumonia. Reviewed, dictated and finalized at location B. IMPRESSION: 1. No large central pulmonary embolism. Evaluation of the lower lobe pulmonary arteries limited by motion. 2: Extensive patchy bilateral airspace disease, compatible with pneumonia.
--- NOTE | 2024-03-10 09:01 | ECG_ITS ---
SEE SCANNED COPY FOR CONFIRMED REPORT MTDD
[2024-03-10 09:41] LABS: Basophils Absolute Auto 0.1 K/mm3 (0.0-0.1); Basophils Percent Auto 0.4 % (0.2-1.2); Eosinophils Absolute Auto 0.1 K/mm3 (0-0.3); Eosinophils Percent Auto 0.5 % (0-4.4); Hematocrit 46.7 % (37.0-47.0); Immature Granulocyte Absolute 0.11 K/mm3 (0.00-0.031); Immature Granulocyte Percent A 0.8 % (0-0.5); Lymphocytes Absolute Auto 2.57 K/mm3 (0.9-3.2); Lymphocytes Percent Auto 17.7 % (18.3-44.2); Mean Corpuscular HGB Conc 32.1 g/dl (32-36); Mean Corpuscular Hemoglobin 28.9 pg (26-34); Mean Platelet Volume 9.9 fl (7.4-10.4); Monocytes Percent Auto 6.9 % (2.6-8.5); Neutrophils Absolute Auto 10.7 K/mm3 (1.3-6.7); Neutrophils Percent Auto 73.7 % (45.5-73.1); Platelet Count Result 297 k/mm3 (150-375); Red Blood Count 5.19 M/mm3 (4.2-5.4); Red Cell Distribution Width 16.1 % (11.5-14.5); White Blood Count 14.5 K/mm3 (4.5-10.0)
[2024-03-10 09:52] LABS: Alanine Aminotransferase 23 U/L (6-35); Albumin Level 3.8 g/dL (3.5-5.1); Alkaline Phosphatase 136 U/L (38-126); Anion Gap 7 mmol/L (4-12); Aspartate Amino Transferase 23 U/L (14-36); Bilirubin,Total 0.8 mg/dL (0.2-1.3); Blood Urea Nitrogen 14 mg/dL (7-17); Carbon Dioxide 27 mmol/L (22-30); Chloride 102 mmol/L (98-107); Estimated Glomerular Filt Rate > 60; Glucose 179 mg/dL (65-110); Potassium 4.1 mmol/L (3.4-5.0); Sodium 136 mmol/L (137-145)
[2024-03-10 10:22] LABS: Appearance Urine Clear (Clear); Bacteria Urine None Seen /hpf; Bilirubin Urine Negative (Negative); Blood Urine Negative (Negative); Color Urine Yellow (Yellow); Glucose Urine UA 3+ mg/dL (Negative); Hyaline Casts Urine Present /lpf; Ketones Urine Negative (Negative); Leukocyte Esterase Ur Negative LEU/UL (Negative); Nitrate Urine Negative (Negative); Protein Urine Trace mg/dL (Negative); RBC Urine 0-2 /hpf (0-2); Specific Grav Ur 1.015 (1.001-1.035); Squamous Epithelial Cell Urine None Seen /hpf (Few); WBC Urine 0-5 /hpf (0-3); pH Urine 5.5 (5.0-9.0)
[2024-03-10 10:26] LABS: Add Urine Microscopic? YES
--- NOTE | 2024-03-10 10:29 | PC.NURSE ---
Pt appears to have moisture associated dermatitis under large abd fold, worse on right than left. Also has what appears to be moisture assoxiated dermatitis to inner legs and around laurie area. Pt reports she has been laying in her urine x 1 week. Paredes catheter inserted to help keep skin dry. Bilateral feet are shen in color, cool to touch and PMS intact. When asked if her feet are also that color she reported she is unable to see feet due to habitus
--- NOTE | 2024-03-10 12:25 | ED.SOB ---
HPI - SOB/Dyspnea General Chief Complaint: Shortness of Breath/Dyspnea Stated Complaint: sob Time Seen by Provider: 03/10/24 12:14 Source: patient and family (sister) Limitations: no limitations History of Present Illness HPI Narrative: Patient states she has a history of CHF, COPD, asthma, and recurrent pneumonia as well as neuropathy and restless leg syndrome And necrotizing fasciitis. she presents with concern for pneumonia given she has been having shortness of breath cough productive of green phlegm well as generalized weakness. The weakness has been so extreme that she has been unable to get out of bed and has been lying in her own urine. Patient recently underwent a sleep study as well as event monitor. She is requiring oxygen though she does not wear this at baseline. She states she has had pneumonia before including approximately 1 month ago. Smoker. She is complaining of significant leg pain right now. She has a history of neuropathy but has not been able to take her gabapentin t.i.d. or her ropinirole due to her nausea. No vomiting. Related Data Home Medications Medication Instructions Recorded Confirmed atorvastatin 40 mg tablet 40 mg PO HS 08/09/23 03/10/24 citalopram 40 mg tablet 40 mg PO DAILY 08/09/23 03/10/24 famotidine 40 mg tablet 40 mg PO DAILY 08/09/23 03/10/24 gabapentin 800 mg tablet 800 mg PO TID 08/09/23 03/10/24 lisinopril 30 mg tablet 30 mg PO DAILY 08/09/23 03/10/24 nortriptyline 25 mg capsule 25 mg PO TID 08/09/23 03/10/24 oxybutynin chloride 5 mg tablet 5 mg PO HS 08/09/23 03/10/24 primidone 250 mg tablet 250 mg PO BID 08/09/23 03/10/24 ropinirole 3 mg tablet 3 mg PO HS 08/09/23 03/10/24 dulaglutide 1.5 mg/0.5 mL 1.5 mg subcut WEEKLY 12/15/23 03/10/24 subcutaneous pen injector (Trulicity) insulin glargine 100 unit/mL (3 42 unit subcut QAM 12/15/23 03/10/24 mL) subcutaneous pen (Basaglar KwikPen U-100 Insulin) insulin glargine 100 unit/mL (3 46 unit subcut QHS 12/15/23 03/10/24 mL) subcutaneous pen (Basaglar KwikPen U-100 Insulin) metformin 500 mg tablet 500 mg PO BID 12/15/23 03/10/24 tolnaftate 1 % topical powder 1 applic topical Q12HR PRN Rash 12/15/23 03/10/24 budesonide-formoterol HFA 160 1 inh inhalation DAILY PRN 03/10/24 03/10/24 mcg-4.5 mcg/actuation aerosol Shortness Of Breath inhaler (Symbicort) docusate sodium 100 mg capsule 100 mg PO PRN PRN Constipation 03/10/24 03/10/24 Allergies Allergy/AdvReac Type Severity Reaction Status Date / Time morphine Allergy Severe Swelling Verified 12/16/23 14:17 of Lip/Tongue/Throat PMFSH Past Medical History Medical History MINA (acute kidney injury) Anxiety and depression Arthritis Asthma Atrial fibrillation with RVR Bipolar disorder Cellulitis LLE, 2007 Cellulitis of groin necrotizing fasciitis COPD (chronic obstructive pulmonary disease) Degenerative joint disease of knee Diabetes mellitus with hyperglycemia Frequent falls Heart failure HLD (hyperlipidemia) Hypertension Migraine Morbid obesity with BMI of 60.0-69.9, adult Neuropathy Restless leg syndrome Suicide attempt x3, last attempt in Tobacco abuse Surgical History Surgical History History of cholecystectomy History of heart artery stent 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 Family History Family History Father Acute myocardial infarction Hypertension Grandparent Chronic obstructive pulmonary disease Diabetes mellitus Mother Congestive heart failure Diabetes mellitus Hypertension Other Leukemia Social History Social History (Updated 03/11/24 @ 05:34 by Tonia Lees MD) Smoking packs per day: 2 Smoking cigarettes per day: 40.0 Years smoked: 45 Smoking pack-years: 90.00 Smoking status: [place]
[2024-03-10 12:41] LABS: Lactic Acid Reflex 1.3 mmol/L (0.7-2.0)
[2024-03-10 12:50] LABS: NT Pro B Type Natriuretic Pept 721 pg/mL (19.9-100)
[2024-03-10 13:09] LABS: Alveolar/Arterial O2 Gradient 117.9 mmHg; Base Excess ABG 3.1 mEq/l (+/-2.0); Fractional Inspired Oxygen 32 %; HCO3 ABG 26.8 mEq/l (22.0-26.0); Oxygen Content ABG 20.2 %vol (16.0-22.0); Oxygen Saturation ABG 94.2 % (95.0-100.0); Oxyhemoglobin 91.1 % THb (90.0-100.0); PCO2 ABG 37.8 mmHg (35.0-45.0); PO2 FiO2 Ratio Arterial Blood 2.06 %; Total Hemoglobin 15.8 g/dL (12.0-18.0); pH ABG 7.468 (7.350-7.450)
[2024-03-10 13:11] LABS: Device NASAL CANNULA; Modified Allen's Test Pass; Site Drawn RIGHT RADIAL
[2024-03-10 13:50] LABS: D Dimer 0.95 ug/mL (<0.48)
[2024-03-10] MEDS: ACETAMINOPHEN 500 MG TABLET 1000 MG PO (13:53)
[2024-03-10] MEDS: GABAPENTIN 300 MG CAPSULE 600 MG PO (13:53)
[2024-03-10 16:28] LABS: Creatine Kinase 63 U/L (30-135)
[2024-03-10] MEDS: AZITHROMYCIN 250 MG TABLET 500 MG PO (17:17)
--- NOTE | 2024-03-10 18:39 | PM.IMHP ---
H&P: HPI History of Present Illness Date/Time: 03/10/24 18:39 Chief Complaint: SOB, Productive Cough Narrative: 63 y/o F presents here with shortness of breath, cough, and weakness with PMH of DM, COPD, HLD, HTN, RLS, and morbid obesity. Patient presents here from home with complaints of shortness of breath, productive cough, and generalized weakness. Patient reports that symptoms started over 1 week ago. Due to generalized weakness, patient has been unable to get out of bed for the past week and has been laying in her own urine. Reports cough is productive yielding green sputum. States she has felt similarly when she had pneumonia, last episode in Dec, treated successfully with azithromycin/ceftriaxone -> oral azithromycin/cefdinir. No baseline O2 requirement. Initial VS at presentation: 97.6? F, HR 74, RR 16, 138/109, and 100% on 3L NC. ED workup showed: WBC 14.5, no anemia, D-dimer 0.95, creatinine 0.9 and GFR >60, glucose 179, lactic acid 1.3, BNP 721, UA not consistent with UTI (3+ glucose only). CXR showed opacities in the bilateral mid and lower lung zones. Chest CTA showed no large central PE, limited evaluation of lower lobe pulmonary arteries due to motion, and extensive patchy bilateral airspace disease compatible with pneumonia. Review of Systems Review of Systems: All systems reviewed & are unremarkable except as noted in HPI and below PMFSH Past Medical History Medical History MINA (acute kidney injury) Anxiety and depression Arthritis Asthma Atrial fibrillation with RVR Bipolar disorder Cellulitis LLE, 2007 Cellulitis of groin necrotizing fasciitis COPD (chronic obstructive pulmonary disease) Degenerative joint disease of knee Diabetes mellitus with hyperglycemia Frequent falls Heart failure HLD (hyperlipidemia) Hypertension Migraine Morbid obesity with BMI of 60.0-69.9, adult Neuropathy Restless leg syndrome Suicide attempt x3, last attempt in Tobacco abuse Surgical History Surgical History History of cholecystectomy History of heart artery stent 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 Family History Family History Father Acute myocardial infarction Hypertension Grandparent Chronic obstructive pulmonary disease Diabetes mellitus Mother Congestive heart failure Diabetes mellitus Hypertension Other Leukemia Social History Social History Smoking packs per day: 1 Smoking cigarettes per day: 20.0 Years smoked: 45 Smoking pack-years: 45.00 Smoking status: Current every day smoker Tobacco type: cigarettes Alcohol intake: current Drinks per week: 1 Substance use: current Substance use type: marijuana Other substance usage details: daily gummies and smoke Do You Feel Safe in your Home?: Yes Lack of Transportation: YES Lack of Food: Never True Current Housing: I Have Housing Concerned About Future Housing: No Difficulty Paying Gas/Electric Bills: No Difficulty Paying for Meds: No Currently Unemployed: No Education: High School Diploma/GED Difficulty w/ Childcare or Family Care: No Spiritual care concerns: No Meds Home Medications and Allergies Home Medications Medication Instructions Recorded Confirmed Type atorvastatin 40 mg tablet 40 mg PO HS 08/09/23 03/10/24 History citalopram 40 mg tablet 40 mg PO DAILY 08/09/23 03/10/24 History famotidine 40 mg tablet 40 mg PO DAILY 08/09/23 03/10/24 History gabapentin 800 mg tablet 800 mg PO TID 08/09/23 03/10/24 History lisinopril 30 mg tablet 30 mg PO DAILY 08/09/23 03/10/24 History nortriptyline 25 mg capsule 25 mg PO TID 08/09/23 03/10/24 History oxybutynin chloride 5 mg tablet 5 mg PO HS 08/09/23 03/10/24 History pr
[2024-03-10] MEDS: ACETAMINOPHEN 325 MG TABLET 650 MG PO (18:52)
--- NOTE | 2024-03-10 21:09 | ADMGEN ---
This patient, Juliann Moody, was admitted to Medical Room 346-01. Patient/family oriented to hospital policies and general routines including ID bracelet, bed and alarms, visiting hours, pain management, procedures, bathroom and other care routines, personal items, smoking policy, room service/diet, and visiting hours. Information on how to activate the Rapid Response Team has been discussed. Patient/Family are encouraged to report perceived risks to care and to ask questions if they do not understand what they are told or what they should do.
[2024-03-10 21:58] LABS: Glucose Point of Care 186 mg/dl (65-105)
[2024-03-11] VITALS (15 sets, daily range): BP systolic 115–127; BP diastolic 50–97; PULSE 68–90; RESP 16–18; TEMP 36.3–36.8; O2SAT 91–95
[2024-03-11] MEDS: ACETAMINOPHEN 325 MG TABLET 650 MG PO (02:10)
[2024-03-11 05:57] LABS: Basophils Absolute Auto 0.1 K/mm3 (0.0-0.1); Basophils Percent Auto 0.4 % (0.2-1.2); Eosinophils Absolute Auto 0.1 K/mm3 (0-0.3); Eosinophils Percent Auto 1.1 % (0-4.4); Hematocrit 43.1 % (37.0-47.0); Immature Granulocyte Absolute 0.14 K/mm3 (0.00-0.031); Immature Granulocyte Percent A 1.1 % (0-0.5); Lymphocytes Absolute Auto 2.61 K/mm3 (0.9-3.2); Lymphocytes Percent Auto 19.6 % (18.3-44.2); Mean Corpuscular HGB Conc 32.5 g/dl (32-36); Mean Corpuscular Volume 89.2 fl (80-100); Mean Platelet Volume 9.6 fl (7.4-10.4); Monocytes Absolute Auto 0.9 K/mm3 (0.1-0.6); Monocytes Percent Auto 6.6 % (2.6-8.5); Neutrophils Absolute Auto 9.5 K/mm3 (1.3-6.7); Neutrophils Percent Auto 71.2 % (45.5-73.1); Platelet Count Result 266 k/mm3 (150-375); Red Blood Count 4.83 M/mm3 (4.2-5.4); Red Cell Distribution Width 16.1 % (11.5-14.5); White Blood Count 13.3 K/mm3 (4.5-10.0)
[2024-03-11 06:09] LABS: Anion Gap 4 mmol/L (4-12); Blood Urea Nitrogen 18 mg/dL (7-17); Calcium 8.9 mg/dL (8.4-10.2); Carbon Dioxide 25 mmol/L (22-30); Chloride 105 mmol/L (98-107); Estimated CRCL calculation 94 ml/min; Estimated Glomerular Filt Rate > 60; Glucose 151 mg/dL (65-110); Potassium 4.1 mmol/L (3.4-5.0); Sodium 134 mmol/L (137-145)
[2024-03-11] MEDS: FLUTICASONE/SALMETEROL 115-21 MCG INHALER 1 PUFF 2 PUFF INHALATION (07:28)
[2024-03-11] MEDS: CITALOPRAM HYDROBROMIDE 20 MG TABLET 40 MG PO (08:11)
[2024-03-11] MEDS: predniSONE 20 MG TABLET 40 MG PO (08:11)
[2024-03-11] MEDS: GABAPENTIN 400 MG CAPSULE 800 MG PO ×3 (08:11→17:54)
[2024-03-11] MEDS: METOPROLOL TARTRATE 50 MG TAB PO ×2 (08:11→21:43)
[2024-03-11] MEDS: APIXABAN 5 MG TABLET PO ×2 (08:11→21:44)
[2024-03-11] MEDS: FAMOTIDINE 20 MG TABLET 40 MG PO (08:11)
[2024-03-11] MEDS: lisinopriL 10 MG TABLET 30 MG PO (08:12)
[2024-03-11] MEDS: TOLNAFTATE 1% POWDER 45 GM BTL 1 APPLIC TOPICAL ×2 (08:12→22:35)
[2024-03-11] MEDS: NORTRIPTYLINE HCL 25 MG CAPSULE PO ×3 (08:12→17:54)
[2024-03-11] MEDS: PRIMIDONE 250 MG TABLET PO ×2 (08:12→17:54)
--- NOTE | 2024-03-11 08:17 | PC.NURSE ---
Discussed patient care needs for at home. Patient has a child care director during the day time. Patient uses and electric wheelchair and can pivot to it. Patient had weakness after feeling sick for a week. Patient states she only had trouble with the self care and incontinence the night before she came in, not the whole week.
[2024-03-11] MEDS: INSULIN GLARGINE (*BKC) 100 UNITS/ML 42 UNITS SUB-Q (08:24)
[2024-03-11 08:25] LABS: Glucose Point of Care 184 mg/dl (65-105)
--- NOTE | 2024-03-11 11:50 | PM.IMPN ---
Progress Note: A&P Assessment and Plan (1) Pneumonia: Code(s): J18.9 - Pneumonia, unspecified organism Status: Acute Assessment and Plan: Did not meet SIRS criteria, lactic 1.3, and blood cultures obtained on 03/10 - +hypoxia, requiring 2L of O2 ; wean oxygen to maintain sats >90% - CXR: Opacities in the bilateral mid and lower lung zones, right greater than left which could represent mild pulmonary edema or pneumonia. - Chest CTA No large central pulmonary embolism. Evaluation of the lower lobe pulmonary arteries limited by motion. Extensive patchy bilateral airspace disease, compatible with pneumonia. - started on CAP ceftriaxone and azithromycin on 03/10 - sputum culture ordered. (2) COPD (chronic obstructive pulmonary disease): Code(s): J44.9 - Chronic obstructive pulmonary disease, unspecified Status: Acute Assessment and Plan: - DuoNebs Q6H PRN - prednisone 40 mg x5 days (3) T2DM (type 2 diabetes mellitus): Code(s): E11.9 - Type 2 diabetes mellitus without complications Status: Acute Assessment and Plan: - hypoglycemia protocol - POC blood glucose ACHS - home medication: Continue Trulicity 1.5 mg subQ weekly, hold metformin, and continue Lantus 46 units subQ p.m. and Lantus 42 units subQ a.m. - correct regimen ordered - high dose TIDWM and HS - A1C 6.0 (4) Hypertension: Code(s): I10 - Essential (primary) hypertension Status: Acute Assessment and Plan: - chronic, currently 108/60 - continue home medications: Lisinopril 30 mg daily, metoprolol 50 mg b.i.d. - monitor Subjective Date/time seen: 03/11/24 11:50 Interval history: Patient complains of shortness of breath, cough and sputum production. She has been having malaise, fatigue and body aches for approximately 1 week as well as cough shortness of breath. She does not typically wear oxygen home although she is now requiring 2 L in the hospital. She does have risk factors of COPD and recent antibiotic use. She is wheelchair bound. She does have caregivers at home. Exam Narrative: GENERAL: Comfortable, no acute distress, morbid obesity HENMT: moist mucous membranes EYES: EOM intact b/l NECK: no lymphadenopathy RESPIRATORY: Diffuse crackles and wheezing, increased respiratory effort CARDIO: Regular rate and rhythm GI: soft, nontender, bowel sounds present SKIN/EXTREMITIES: no rashes, no edema, no redness or tenderness NEURO: PROM intact, answers questions appropriately, A&O x4 Objective Data Vital Signs Vital Signs: Vital Signs - 24 hr 03/10/24 13:57 03/10/24 15:00 03/10/24 17:59 Temperature Pulse Rate 89 76 76 Respiratory Rate 18 23 H 20 Blood Pressure 122/63 108/60 Pulse Oximetry 93 97 97 Oxygen Delivery Oxygen Flow Rate 03/10/24 20:49 03/10/24 22:00 03/10/24 22:15 Temperature 98 F Pulse Rate 87 80 80 Respiratory Rate 19 20 20 Blood Pressure 187/72 H 113/55 L Pulse Oximetry 93 98 98 Oxygen Delivery Nasal Cannula Oxygen Flow Rate 3 03/11/24 00:00 03/11/24 04:00 03/11/24 05:48 Temperature 98.2 F Pulse Rate 87 83 77 Respiratory Rate 16 Blood Pressure 115/53 L Pulse Oximetry 95 Oxygen Delivery Oxygen Flow Rate 03/11/24 07:28 03/11/24 07:28 03/11/24 08:11 Temperature Pulse Rate 81 81 84 Respiratory Rate 18 18 Blood Pressure Pulse Oximetry 93 Oxygen Delivery Nasal Cannula Oxygen Flow Rate 2 03/11/24 08:17 Temperature Pulse Rate Respiratory Rate Blood Pressure Pulse Oximetry 92 Oxygen Delivery Nasal Cannula Oxygen Flow Rate 2 Intake/Output Intake/Output: Intake & Output 03/08/24 03/09/24 03/10/24 03/11/24 23:59 23:59 23:59 23:59 Intake Total 50 480 Output Total 700 Balance 50 -220 Meds/Results Medications: Active Medications Generic Name Dose Route Start Last Admin Trade Name Freq PRN Reason Stop Dose Admin Acetaminophen
[2024-03-11 12:38] LABS: Glucose Point of Care 222 mg/dl (65-105)
[2024-03-11] MEDS: INSULIN ASPART (*BKC) 100 UNITS/ML SUB-Q (12:38)
[2024-03-11] MEDS: IPRATROPIUM 0.5 MG/ALBUTEROL SULFATE 2.5 MG AMPUL.NEB 3 ML INHALATION (13:15)
--- NOTE | 2024-03-11 17:12 | PHAR ---
Pharmacy verified home med: * USE FROM HOME * Dulaglutide [Trulicity] 3 mg/0.5 mL pen injector INJECT 1.5 MG UNDER THE SKIN ONCE WEEKLY ON FRIDAYS
[2024-03-11 17:50] LABS: Glucose Point of Care 169 mg/dl (65-105)
[2024-03-11] MEDS: AZITHROMYCIN 500 MG/NS 250 ML 500 MG/250 ML BAG 250 MG IVPB (17:59)
[2024-03-11] MEDS: rOPINIRole HCL 1 MG TABLET 3 MG PO (21:43)
[2024-03-11] MEDS: ATORVASTATIN 40 MG TABLET PO (21:44)
[2024-03-11] MEDS: oxyBUTYnin CHLORIDE 5 MG TABLET PO (21:44)
[2024-03-11] MEDS: INSULIN GLARGINE (*BKC) 100 UNITS/ML 46 UNITS SUB-Q (21:44)
[2024-03-12] VITALS (19 sets, daily range): BP systolic 110–125; BP diastolic 55–69; PULSE 66–94; RESP 16–20; TEMP 35.8–36.7; O2SAT 92–100
[2024-03-12] MEDS: IPRATROPIUM 0.5 MG/ALBUTEROL SULFATE 2.5 MG AMPUL.NEB 3 ML INHALATION ×4 (02:21→21:45)
[2024-03-12 05:52] LABS: Hematocrit 45.8 % (37.0-47.0); Hemoglobin 13.9 g/dL (12.0-15.0); Mean Corpuscular HGB Conc 30.3 g/dl (32-36); Mean Corpuscular Hemoglobin 28.7 pg (26-34); Mean Corpuscular Volume 94.6 fl (80-100); Mean Platelet Volume 9.8 fl (7.4-10.4); Platelet Count Result 275 k/mm3 (150-375); Red Blood Count 4.84 M/mm3 (4.2-5.4); Red Cell Distribution Width 15.9 % (11.5-14.5); White Blood Count 11.6 K/mm3 (4.5-10.0)
[2024-03-12 06:27] LABS: Glucose Point of Care 167 mg/dl (65-105)
[2024-03-12 08:28] LABS: Glucose Point of Care 142 mg/dl (65-105)
[2024-03-12 08:34] LABS: Anion Gap 2 mmol/L (4-12); Blood Urea Nitrogen 17 mg/dL (7-17); Calcium 8.8 mg/dL (8.4-10.2); Carbon Dioxide 30 mmol/L (22-30); Chloride 104 mmol/L (98-107); Estimated CRCL calculation 94 ml/min; Estimated Glomerular Filt Rate > 60; Glucose 134 mg/dL (65-110); Sodium 136 mmol/L (137-145)
[2024-03-12] MEDS: FAMOTIDINE 20 MG TABLET 40 MG PO (08:54)
[2024-03-12] MEDS: NORTRIPTYLINE HCL 25 MG CAPSULE PO ×3 (08:54→16:43)
[2024-03-12] MEDS: lisinopriL 10 MG TABLET 30 MG PO (08:54)
[2024-03-12] MEDS: CITALOPRAM HYDROBROMIDE 20 MG TABLET 40 MG PO (08:55)
[2024-03-12] MEDS: APIXABAN 5 MG TABLET PO ×2 (08:55→20:54)
[2024-03-12] MEDS: PRIMIDONE 250 MG TABLET PO ×2 (08:55→16:43)
[2024-03-12] MEDS: METOPROLOL TARTRATE 50 MG TAB PO ×2 (08:56→20:53)
[2024-03-12] MEDS: TOLNAFTATE 1% POWDER 45 GM BTL 1 APPLIC TOPICAL ×2 (08:57→20:54)
[2024-03-12] MEDS: GABAPENTIN 400 MG CAPSULE 800 MG PO ×3 (08:57→16:43)
[2024-03-12] MEDS: predniSONE 20 MG TABLET 40 MG PO (08:57)
[2024-03-12 12:33] LABS: Glucose Point of Care 202 mg/dl (65-105)
--- NOTE | 2024-03-12 12:45 | PM.IMPN ---
Progress Note: A&P Assessment and Plan (1) Pneumonia: Code(s): J18.9 - Pneumonia, unspecified organism Status: Acute Assessment and Plan: Did not meet SIRS criteria, lactic 1.3, and blood cultures obtained on 03/10 - +hypoxia, requiring 2L of O2 ; wean oxygen to maintain sats >90% - CXR: Opacities in the bilateral mid and lower lung zones, right greater than left which could represent mild pulmonary edema or pneumonia. - Chest CTA No large central pulmonary embolism. Evaluation of the lower lobe pulmonary arteries limited by motion. Extensive patchy bilateral airspace disease, compatible with pneumonia. - started on CAP ceftriaxone and azithromycin on 03/10 - sputum culture pending. (2) COPD (chronic obstructive pulmonary disease): Code(s): J44.9 - Chronic obstructive pulmonary disease, unspecified Status: Acute Assessment and Plan: - DuoNebs Q6H PRN - prednisone 40 mg x5 days (3) T2DM (type 2 diabetes mellitus): Code(s): E11.9 - Type 2 diabetes mellitus without complications Status: Acute Assessment and Plan: - hypoglycemia protocol - POC blood glucose ACHS - home medication: Continue Trulicity 1.5 mg subQ weekly, hold metformin, and continue Lantus 46 units subQ p.m. and Lantus 42 units subQ a.m. - correct regimen ordered - high dose TIDWM and HS - A1C 6.0 (4) Hypertension: Code(s): I10 - Essential (primary) hypertension Status: Acute Assessment and Plan: - chronic, currently 108/60 - continue home medications: Lisinopril 30 mg daily, metoprolol 50 mg b.i.d. - monitor Subjective Date/time seen: 03/12/24 12:45 Interval history: Patient states that she is still short of breath and still having cough with sputum production. She is slightly improved from yesterday but overall feeling about the same. Patient may need placement at discharge. Patient still has very coarse breath sounds. Exam Narrative: GENERAL: Comfortable, no acute distress, morbid obesity HENMT: moist mucous membranes EYES: EOM intact b/l NECK: no lymphadenopathy RESPIRATORY: Diffuse crackles and wheezing, increased respiratory effort CARDIO: Regular rate and rhythm GI: soft, nontender, bowel sounds present SKIN/EXTREMITIES: no rashes, no edema, no redness or tenderness NEURO: PROM intact, answers questions appropriately, A&O x4 Objective Data Vital Signs Vital Signs: Vital Signs - 24 hr 03/11/24 14:00 03/11/24 13:15 03/11/24 13:25 Temperature 98.2 F Pulse Rate 73 69 72 Respiratory Rate 16 18 18 Blood Pressure 126/50 L Pulse Oximetry 91 Oxygen Delivery Oxygen Flow Rate 03/11/24 14:42 03/11/24 16:20 03/11/24 16:04 Temperature Pulse Rate 90 Respiratory Rate Blood Pressure Pulse Oximetry Oxygen Delivery Nasal Cannula Nasal Cannula Oxygen Flow Rate 2 2 03/11/24 21:32 03/11/24 21:43 03/11/24 20:00 Temperature 97.4 F L Pulse Rate 81 68 83 Respiratory Rate 16 Blood Pressure 127/97 H Pulse Oximetry 95 Oxygen Delivery Oxygen Flow Rate 03/11/24 20:00 03/12/24 00:00 03/12/24 02:21 Temperature Pulse Rate 73 Respiratory Rate Blood Pressure Pulse Oximetry 93 Oxygen Delivery Room Air Nasal Cannula Oxygen Flow Rate 2 03/12/24 02:21 03/12/24 02:28 03/12/24 04:00 Temperature Pulse Rate 83 85 82 Respiratory Rate 20 20 Blood Pressure Pulse Oximetry Oxygen Delivery Oxygen Flow Rate 03/12/24 06:00 03/12/24 08:46 03/12/24 08:46 Temperature 97.0 F L Pulse Rate 74 73 Respiratory Rate 20 20 Blood Pressure 120/69 Pulse Oximetry 100 92 Oxygen Delivery Nasal Cannula Oxygen Flow Rate 3 03/12/24 08:56 03/12/24 09:00 Temperature Pulse Rate 71 Respiratory Rate Blood Pressure Pulse Oximetry 94 Oxygen Delivery Nasal Cannula Oxygen Flow Rate 2 Intake/Output Intake/Output: Intake & Output 03/09/24
[2024-03-12] MEDS: INSULIN ASPART (*BKC) 100 UNITS/ML SUB-Q ×3 (13:05→20:52)
--- NOTE | 2024-03-12 13:12 | PCPTNOTE ---
Patient refused treatment this session due to left knee pain. Patient asked PT to check back later. Nursing aware.
[2024-03-12] MEDS: ACETAMINOPHEN 325 MG TABLET 650 MG PO (13:17)
[2024-03-12 17:24] LABS: Glucose Point of Care 235 mg/dl (65-105)
[2024-03-12] MEDS: AZITHROMYCIN 500 MG/NS 250 ML 500 MG/250 ML BAG 250 MG IVPB (17:36)
[2024-03-12] MEDS: INSULIN GLARGINE (*BKC) 100 UNITS/ML 46 UNITS SUB-Q (20:53)
[2024-03-12] MEDS: ATORVASTATIN 40 MG TABLET PO (20:54)
[2024-03-12] MEDS: oxyBUTYnin CHLORIDE 5 MG TABLET PO (20:54)
[2024-03-12] MEDS: rOPINIRole HCL 1 MG TABLET 3 MG PO (20:54)
[2024-03-13] VITALS (22 sets, daily range): BP systolic 128–137; BP diastolic 63–74; PULSE 62–88; RESP 16–22; TEMP 36.1–36.4; O2SAT 88–94
[2024-03-13] MEDS: IPRATROPIUM 0.5 MG/ALBUTEROL SULFATE 2.5 MG AMPUL.NEB 3 ML INHALATION ×4 (03:16→21:43)
[2024-03-13 05:58] LABS: Hematocrit 46.4 % (37.0-47.0); Hemoglobin 14.6 g/dL (12.0-15.0); Mean Corpuscular HGB Conc 31.5 g/dl (32-36); Mean Corpuscular Hemoglobin 29.1 pg (26-34); Mean Corpuscular Volume 92.4 fl (80-100); Mean Platelet Volume 9.9 fl (7.4-10.4); Platelet Count Result 353 k/mm3 (150-375); Red Blood Count 5.02 M/mm3 (4.2-5.4); White Blood Count 13.7 K/mm3 (4.5-10.0)
[2024-03-13 06:28] LABS: Anion Gap 1 mmol/L (4-12); Blood Urea Nitrogen 17 mg/dL (7-17); Calcium 8.9 mg/dL (8.4-10.2); Carbon Dioxide 32 mmol/L (22-30); Chloride 104 mmol/L (98-107); Estimated CRCL calculation 94 ml/min; Estimated Glomerular Filt Rate > 60; Glucose 99 mg/dL (65-110); Potassium 4.2 mmol/L (3.4-5.0); Sodium 137 mmol/L (137-145)
[2024-03-13 08:09] LABS: Glucose Point of Care 270 mg/dl (65-105)
[2024-03-13 08:33] LABS: Glucose Point of Care 89 mg/dl (65-105)
[2024-03-13] MEDS: TOLNAFTATE 1% POWDER 45 GM BTL 1 APPLIC TOPICAL ×2 (08:39→20:29)
[2024-03-13] MEDS: METOPROLOL TARTRATE 50 MG TAB PO ×2 (08:40→20:27)
[2024-03-13] MEDS: CITALOPRAM HYDROBROMIDE 20 MG TABLET 40 MG PO (08:40)
[2024-03-13] MEDS: NORTRIPTYLINE HCL 25 MG CAPSULE PO ×3 (08:43→17:45)
[2024-03-13] MEDS: lisinopriL 10 MG TABLET 30 MG PO (08:43)
[2024-03-13] MEDS: FAMOTIDINE 20 MG TABLET 40 MG PO (08:43)
[2024-03-13] MEDS: GABAPENTIN 400 MG CAPSULE 800 MG PO ×3 (08:43→17:45)
[2024-03-13] MEDS: APIXABAN 5 MG TABLET PO ×2 (08:43→20:27)
[2024-03-13] MEDS: predniSONE 20 MG TABLET 40 MG PO (08:43)
[2024-03-13] MEDS: PRIMIDONE 250 MG TABLET PO ×2 (08:44→17:45)
--- NOTE | 2024-03-13 09:52 | PC.NURSE ---
This nurse observed patient to be crying and emotional when entering room for am medication administration on 03/12/24. Patient stated she was just tired of people telling her what to do, she did not want to move or get out of bed, and she just wanted everything to be over. She explained physical therapy had just left the room and she wanted to be left alone and not be asked to do stuff anymore. Asked patient if she had any thoughts about ending her life and patient denied. She said she would never do anything to end her life because she believes that is in God's hands, not hers . Offered patient to speak with hospital copper tapper for spiritual and emotional support and patient accepted. ISAEL Walker informed of patients emotional state, as well as charge nurse, cardiac care nurse and hospital copper tapper. Hospital copper tapper Sree saw patient on 03/12/24 at 1600. Patient did not show any signs of emotional distress for remainder of the day or on 03/13/24.
--- NOTE | 2024-03-13 11:59 | PM.IMPN ---
Progress Note: A&P Assessment and Plan (1) Pneumonia: Code(s): J18.9 - Pneumonia, unspecified organism Status: Acute Assessment and Plan: Did not meet SIRS criteria, lactic 1.3, and blood cultures obtained on 03/10 - +hypoxia, requiring 2L of O2 ; wean oxygen to maintain sats >90% - CXR: Opacities in the bilateral mid and lower lung zones, right greater than left which could represent mild pulmonary edema or pneumonia. - Chest CTA No large central pulmonary embolism. Evaluation of the lower lobe pulmonary arteries limited by motion. Extensive patchy bilateral airspace disease, compatible with pneumonia. - started on CAP ceftriaxone and azithromycin on 03/10 - sputum culture NGTD. - Blood culture NGTD. - Mucinex BID - CPT QID (2) COPD (chronic obstructive pulmonary disease): Code(s): J44.9 - Chronic obstructive pulmonary disease, unspecified Status: Acute Assessment and Plan: - DuoNebs Q6H PRN - prednisone 40 mg x5 days (3) T2DM (type 2 diabetes mellitus): Code(s): E11.9 - Type 2 diabetes mellitus without complications Status: Acute Assessment and Plan: - hypoglycemia protocol - POC blood glucose ACHS - home medication: Continue Trulicity 1.5 mg subQ weekly, hold metformin, and continue Lantus 46 units subQ p.m. and Lantus 42 units subQ a.m. - correct regimen ordered - high dose TIDWM and HS - A1C 6.0 (4) Hypertension: Code(s): I10 - Essential (primary) hypertension Status: Acute Assessment and Plan: - chronic, currently 108/60 - continue home medications: Lisinopril 30 mg daily, metoprolol 50 mg b.i.d. - monitor Subjective Date/time seen: 03/13/24 11:59 Interval history: Patient is still having ongoing coughing and mucus production. She feels like she is able to cough more since she has been here. Adding Mucinex and CPT to regimen. Is still having some shortness of breath as well. Exam Narrative: GENERAL: Comfortable, no acute distress, morbid obesity HENMT: moist mucous membranes EYES: EOM intact b/l NECK: no lymphadenopathy RESPIRATORY: Diffuse crackles and wheezing, increased respiratory effort CARDIO: Regular rate and rhythm GI: soft, nontender, bowel sounds present SKIN/EXTREMITIES: no rashes, no edema, no redness or tenderness NEURO: PROM intact, answers questions appropriately, A&O x4 Objective Data Vital Signs Vital Signs: Vital Signs - 24 hr 03/12/24 14:00 03/12/24 14:58 03/12/24 14:58 Temperature 98.1 F Pulse Rate 66 70 Respiratory Rate 16 20 Blood Pressure 125/55 L Pulse Oximetry 93 96 Oxygen Delivery Nasal Cannula Oxygen Flow Rate 3 Fraction of Inspired Oxygen 03/12/24 15:11 03/12/24 12:00 03/12/24 16:00 Temperature Pulse Rate 69 76 73 Respiratory Rate 20 Blood Pressure Pulse Oximetry Oxygen Delivery Oxygen Flow Rate Fraction of Inspired Oxygen 03/12/24 20:53 03/12/24 21:45 03/12/24 21:56 Temperature Pulse Rate 79 72 73 Respiratory Rate 18 Blood Pressure Pulse Oximetry Oxygen Delivery Oxygen Flow Rate Fraction of Inspired Oxygen 03/12/24 21:56 03/12/24 22:00 03/12/24 20:00 Temperature 96.5 F L Pulse Rate 67 67 Respiratory Rate 16 Blood Pressure 110/67 Pulse Oximetry 94 94 Oxygen Delivery Nasal Cannula Oxygen Flow Rate 2 Fraction of Inspired Oxygen 03/12/24 20:00 03/13/24 00:00 03/13/24 03:17 Temperature Pulse Rate 62 70 Respiratory Rate 20 Blood Pressure Pulse Oximetry 94 Oxygen Delivery Nasal Cannula Oxygen Flow Rate 2 Fraction of Inspired Oxygen 03/13/24 03:24 03/13/24 04:00 03/13/24 06:00 Temperature 97.2 F L Pulse Rate 70 72 79 Respiratory Rate 20 16 Blood Pressure 128/74 Pulse Oximetry 94 Oxygen Delivery Oxygen Flow Rate Fraction of Inspired Oxygen 03/13/24 08:23 03/13/24 08:23 03/13/24 08:31 Temperature Pulse
[2024-03-13 12:16] LABS: Glucose Point of Care 209 mg/dl (65-105)
[2024-03-13] MEDS: guaiFENesin 600 MG/DEXTROMETHORPHAN 30 MG SR TAB 12 HR 1 TAB PO ×2 (12:30→20:27)
[2024-03-13] MEDS: INSULIN ASPART (*BKC) 100 UNITS/ML SUB-Q ×3 (12:32→20:29)
[2024-03-13 17:36] LABS: Glucose Point of Care 213 mg/dl (65-105)
[2024-03-13] MEDS: AZITHROMYCIN 500 MG/NS 250 ML 500 MG/250 ML BAG 250 MG IVPB (18:30)
[2024-03-13] MEDS: ATORVASTATIN 40 MG TABLET PO (20:27)
[2024-03-13] MEDS: oxyBUTYnin CHLORIDE 5 MG TABLET PO (20:27)
[2024-03-13] MEDS: rOPINIRole HCL 1 MG TABLET 3 MG PO (20:27)
[2024-03-13] MEDS: INSULIN GLARGINE (*BKC) 100 UNITS/ML 46 UNITS SUB-Q (20:28)
[2024-03-13 21:37] LABS: Glucose Point of Care 243 mg/dl (65-105)
[2024-03-14] VITALS (18 sets, daily range): BP systolic 132–146; BP diastolic 56–73; PULSE 51–81; RESP 16–20; TEMP 36.2–36.6; O2SAT 92–93
[2024-03-14 06:12] LABS: Hematocrit 42.8 % (37.0-47.0); Hemoglobin 13.9 g/dL (12.0-15.0); Mean Corpuscular HGB Conc 32.5 g/dl (32-36); Mean Corpuscular Hemoglobin 28.8 pg (26-34); Mean Corpuscular Volume 88.8 fl (80-100); Mean Platelet Volume 9.5 fl (7.4-10.4); Platelet Count Result 301 k/mm3 (150-375); Red Blood Count 4.82 M/mm3 (4.2-5.4); Red Cell Distribution Width 15.6 % (11.5-14.5); White Blood Count 12.1 K/mm3 (4.5-10.0)
[2024-03-14 06:25] LABS: Anion Gap 2 mmol/L (4-12); Blood Urea Nitrogen 17 mg/dL (7-17); Calcium 8.8 mg/dL (8.4-10.2); Carbon Dioxide 29 mmol/L (22-30); Chloride 102 mmol/L (98-107); Estimated CRCL calculation 106 ml/min; Estimated Glomerular Filt Rate > 60; Glucose 98 mg/dL (65-110); Potassium 4.2 mmol/L (3.4-5.0); Sodium 133 mmol/L (137-145)
[2024-03-14] MEDS: IPRATROPIUM 0.5 MG/ALBUTEROL SULFATE 2.5 MG AMPUL.NEB 3 ML INHALATION ×3 (07:55→20:59)
[2024-03-14 08:29] LABS: Glucose Point of Care 98 mg/dl (65-105)
[2024-03-14] MEDS: APIXABAN 5 MG TABLET PO ×2 (08:29→21:01)
[2024-03-14] MEDS: lisinopriL 10 MG TABLET 30 MG PO (08:29)
[2024-03-14] MEDS: FAMOTIDINE 20 MG TABLET 40 MG PO (08:30)
[2024-03-14] MEDS: NORTRIPTYLINE HCL 25 MG CAPSULE PO ×3 (08:30→16:30)
[2024-03-14] MEDS: CITALOPRAM HYDROBROMIDE 20 MG TABLET 40 MG PO (08:30)
[2024-03-14] MEDS: guaiFENesin 600 MG/DEXTROMETHORPHAN 30 MG SR TAB 12 HR 1 TAB PO ×2 (08:30→21:01)
[2024-03-14] MEDS: PRIMIDONE 250 MG TABLET PO ×2 (08:31→16:30)
[2024-03-14] MEDS: METOPROLOL TARTRATE 50 MG TAB PO ×2 (08:31→21:01)
[2024-03-14] MEDS: predniSONE 20 MG TABLET 40 MG PO (08:32)
[2024-03-14] MEDS: GABAPENTIN 400 MG CAPSULE 800 MG PO ×3 (08:32→16:30)
[2024-03-14] MEDS: TOLNAFTATE 1% POWDER 45 GM BTL 1 APPLIC TOPICAL ×2 (08:33→21:03)
[2024-03-14] MEDS: INSULIN GLARGINE (*BKC) 100 UNITS/ML 42 UNITS SUB-Q (08:34)
[2024-03-14 12:11] LABS: Glucose Point of Care 206 mg/dl (65-105)
[2024-03-14] MEDS: INSULIN ASPART (*BKC) 100 UNITS/ML SUB-Q ×3 (12:38→21:02)
--- NOTE | 2024-03-14 12:46 | PM.IMPN ---
Progress Note: A&P Assessment and Plan (1) Pneumonia: Code(s): J18.9 - Pneumonia, unspecified organism Status: Acute Assessment and Plan: Did not meet SIRS criteria, lactic 1.3, and blood cultures obtained on 03/10 - +hypoxia, requiring 2L of O2 ; wean oxygen to maintain sats >90% - CXR: Opacities in the bilateral mid and lower lung zones, right greater than left which could represent mild pulmonary edema or pneumonia. - Chest CTA No large central pulmonary embolism. Evaluation of the lower lobe pulmonary arteries limited by motion. Extensive patchy bilateral airspace disease, compatible with pneumonia. - started on CAP ceftriaxone and azithromycin on 03/10 - sputum culture showing isolated yeast. - Blood culture NGTD. - Mucinex BID - CPT QID (2) COPD (chronic obstructive pulmonary disease): Code(s): J44.9 - Chronic obstructive pulmonary disease, unspecified Status: Acute Assessment and Plan: - DuoNebs Q6H PRN - prednisone 40 mg x5 days (3) T2DM (type 2 diabetes mellitus): Code(s): E11.9 - Type 2 diabetes mellitus without complications Status: Acute Assessment and Plan: - hypoglycemia protocol - POC blood glucose ACHS - home medication: Continue Trulicity 1.5 mg subQ weekly, hold metformin, and continue Lantus 46 units subQ p.m. and Lantus 42 units subQ a.m. - correct regimen ordered - high dose TIDWM and HS - A1C 6.0 (4) Hypertension: Code(s): I10 - Essential (primary) hypertension Status: Acute Assessment and Plan: - chronic, currently 108/60 - continue home medications: Lisinopril 30 mg daily, metoprolol 50 mg b.i.d. - monitor Subjective Date/time seen: 03/14/24 12:46 Interval history: Patient doing well today. Her shortness of breath has improved. She was able to be urine down her oxygen. She is currently on 1 L. She is still having productive cough. Will continue IV antibiotic therapy for now. Patient continues to do well she should be able to discharge in the next day or 2. Exam Narrative: GENERAL: Comfortable, no acute distress, morbid obesity HENMT: moist mucous membranes EYES: EOM intact b/l NECK: no lymphadenopathy RESPIRATORY: expiatory crackles and wheezing, increased respiratory effort CARDIO: Regular rate and rhythm GI: soft, nontender, bowel sounds present SKIN/EXTREMITIES: no rashes, no edema, no redness or tenderness NEURO: PROM intact, answers questions appropriately, A&O x4 Objective Data Vital Signs Vital Signs: Vital Signs - 24 hr 03/13/24 13:34 03/13/24 13:35 03/13/24 13:35 Temperature Pulse Rate 65 Respiratory Rate 20 Blood Pressure Pulse Oximetry 88 L 92 Oxygen Delivery Room Air Nasal Cannula Oxygen Flow Rate 1 Fraction of Inspired Oxygen 03/13/24 13:43 03/13/24 14:43 03/13/24 16:00 Temperature 97.0 F L Pulse Rate 67 73 69 Respiratory Rate 20 21 H Blood Pressure 130/63 Pulse Oximetry 91 Oxygen Delivery Oxygen Flow Rate Fraction of Inspired Oxygen 03/13/24 20:26 03/13/24 20:27 03/13/24 21:43 Temperature 97.6 F Pulse Rate 73 74 77 Respiratory Rate 18 22 H Blood Pressure 137/73 Pulse Oximetry 94 Oxygen Delivery Oxygen Flow Rate Fraction of Inspired Oxygen 03/13/24 21:46 03/13/24 21:51 03/13/24 20:00 Temperature Pulse Rate 77 72 Respiratory Rate 20 Blood Pressure Pulse Oximetry 92 94 Oxygen Delivery Nasal Cannula Nasal Cannula Oxygen Flow Rate 1 2 Fraction of Inspired Oxygen 03/14/24 05:24 03/13/24 20:00 03/14/24 00:00 Temperature 97.8 F Pulse Rate 77 82 64 Respiratory Rate 16 Blood Pressure 146/73 H Pulse Oximetry 92 Oxygen Delivery Oxygen Flow Rate Fraction of Inspired Oxygen 03/14/24 04:00 03/14/24 07:58 03/14/24 07:58 Temperature Pulse Rate 51 L 77 77 Respiratory Rate 20 20 Blood Pressure Pulse Oximetry 93 Oxygen Deliver
[2024-03-14] MEDS: AZITHROMYCIN 500 MG/NS 250 ML 500 MG/250 ML BAG 250 MG IVPB (16:30)
[2024-03-14 17:44] LABS: Glucose Point of Care 218 mg/dl (65-105)
[2024-03-14] MEDS: oxyBUTYnin CHLORIDE 5 MG TABLET PO (21:01)
[2024-03-14] MEDS: ACETAMINOPHEN 325 MG TABLET 650 MG PO (21:01)
[2024-03-14] MEDS: ATORVASTATIN 40 MG TABLET PO (21:01)
[2024-03-14] MEDS: rOPINIRole HCL 1 MG TABLET 3 MG PO (21:02)
[2024-03-14] MEDS: INSULIN GLARGINE (*BKC) 100 UNITS/ML 46 UNITS SUB-Q (21:02)
[2024-03-14 21:11] LABS: Glucose Point of Care 202 mg/dl (65-105)
[2024-03-15] VITALS (18 sets, daily range): BP systolic 124–140; BP diastolic 55–68; PULSE 53–75; RESP 16–20; TEMP 36.3–36.8; O2SAT 92–95
[2024-03-15 06:14] LABS: Hematocrit 43.6 % (37.0-47.0); Hemoglobin 14.1 g/dL (12.0-15.0); Mean Corpuscular HGB Conc 32.3 g/dl (32-36); Mean Corpuscular Hemoglobin 29.2 pg (26-34); Mean Corpuscular Volume 90.3 fl (80-100); Mean Platelet Volume 9.5 fl (7.4-10.4); Platelet Count Result 311 k/mm3 (150-375); Red Blood Count 4.83 M/mm3 (4.2-5.4); Red Cell Distribution Width 15.6 % (11.5-14.5); White Blood Count 11.5 K/mm3 (4.5-10.0)
[2024-03-15 06:25] LABS: Anion Gap 5 mmol/L (4-12); Blood Urea Nitrogen 18 mg/dL (7-17); Calcium 9.3 mg/dL (8.4-10.2); Carbon Dioxide 28 mmol/L (22-30); Chloride 103 mmol/L (98-107); Estimated CRCL calculation 106 ml/min; Estimated Glomerular Filt Rate > 60; Glucose 88 mg/dL (65-110); Potassium 4.4 mmol/L (3.4-5.0); Sodium 136 mmol/L (137-145)
[2024-03-15] MEDS: IPRATROPIUM 0.5 MG/ALBUTEROL SULFATE 2.5 MG AMPUL.NEB 3 ML INHALATION ×3 (07:11→20:06)
[2024-03-15 08:39] LABS: Glucose Point of Care 84 mg/dl (65-105)
[2024-03-15] MEDS: lisinopriL 10 MG TABLET 30 MG PO (08:45)
[2024-03-15] MEDS: PRIMIDONE 250 MG TABLET PO ×2 (08:45→17:46)
[2024-03-15] MEDS: predniSONE 20 MG TABLET 40 MG PO (08:45)
[2024-03-15] MEDS: APIXABAN 5 MG TABLET PO ×2 (08:45→21:01)
[2024-03-15] MEDS: guaiFENesin 600 MG/DEXTROMETHORPHAN 30 MG SR TAB 12 HR 1 TAB PO ×2 (08:45→21:02)
[2024-03-15] MEDS: GABAPENTIN 400 MG CAPSULE 800 MG PO ×3 (08:46→17:46)
[2024-03-15] MEDS: FAMOTIDINE 20 MG TABLET 40 MG PO (08:46)
[2024-03-15] MEDS: NORTRIPTYLINE HCL 25 MG CAPSULE PO ×3 (08:46→17:46)
[2024-03-15] MEDS: METOPROLOL TARTRATE 50 MG TAB PO ×2 (08:46→21:01)
[2024-03-15] MEDS: CITALOPRAM HYDROBROMIDE 20 MG TABLET 40 MG PO (08:47)
[2024-03-15] MEDS: TOLNAFTATE 1% POWDER 45 GM BTL 1 APPLIC TOPICAL ×2 (08:48→21:02)
[2024-03-15] MEDS: INSULIN GLARGINE (*BKC) 100 UNITS/ML 42 UNITS SUB-Q (08:49)
[2024-03-15 12:02] LABS: Glucose Point of Care 227 mg/dl (65-105)
--- NOTE | 2024-03-15 12:05 | PM.IMPN ---
Progress Note: A&P Assessment and Plan (1) Pneumonia: Code(s): J18.9 - Pneumonia, unspecified organism Status: Acute Assessment and Plan: Did not meet SIRS criteria, lactic 1.3, and blood cultures obtained on 03/10 - +hypoxia, requiring 2L of O2 ; wean oxygen to maintain sats >90% - CXR: Opacities in the bilateral mid and lower lung zones, right greater than left which could represent mild pulmonary edema or pneumonia. - Chest CTA No large central pulmonary embolism. Evaluation of the lower lobe pulmonary arteries limited by motion. Extensive patchy bilateral airspace disease, compatible with pneumonia. - started on CAP ceftriaxone and azithromycin on 03/10 - sputum culture showing isolated yeast. - Blood culture NGTD. - Mucinex BID - CPT QID (2) COPD (chronic obstructive pulmonary disease): Code(s): J44.9 - Chronic obstructive pulmonary disease, unspecified Status: Acute Assessment and Plan: - DuoNebs Q6H PRN - prednisone 40 mg x5 days (3) T2DM (type 2 diabetes mellitus): Code(s): E11.9 - Type 2 diabetes mellitus without complications Status: Acute Assessment and Plan: - hypoglycemia protocol - POC blood glucose ACHS - home medication: Continue Trulicity 1.5 mg subQ weekly, hold metformin, and continue Lantus 46 units subQ p.m. and Lantus 42 units subQ a.m. - correct regimen ordered - high dose TIDWM and HS - A1C 6.0 (4) Hypertension: Code(s): I10 - Essential (primary) hypertension Status: Acute Assessment and Plan: - chronic, currently 108/60 - continue home medications: Lisinopril 30 mg daily, metoprolol 50 mg b.i.d. - monitor Subjective Date/time seen: 03/15/24 12:05 Interval history: Patient states that she is feeling much better today. She is still requiring O2 supplementation. Likely plan on discharge tomorrow. Shortness of breath is improved as well as her cough. According to the nurse patient is refusing to get up of bed and will not even sit up in bed. Encourage patient to be up to the side of the bed for meals as well as participating in CPT. Exam Narrative: GENERAL: Comfortable, no acute distress, morbid obesity HENMT: moist mucous membranes, to signs of candidiasis infection in the mouth EYES: EOM intact b/l NECK: no lymphadenopathy RESPIRATORY: expiatory crackles and wheezing, increased respiratory effort CARDIO: Regular rate and rhythm GI: soft, nontender, bowel sounds present SKIN/EXTREMITIES: no rashes, no edema, no redness or tenderness NEURO: PROM intact, answers questions appropriately, A&O x4 Objective Data Vital Signs Vital Signs: Vital Signs - 24 hr 03/14/24 14:07 03/14/24 14:14 03/14/24 14:24 Temperature 97.3 F L Pulse Rate 62 66 63 Respiratory Rate 19 20 20 Blood Pressure 132/56 L Pulse Oximetry 93 Oxygen Delivery Oxygen Flow Rate Fraction of Inspired Oxygen 03/14/24 16:00 03/14/24 21:00 03/14/24 21:01 Temperature Pulse Rate 67 67 70 Respiratory Rate 20 Blood Pressure Pulse Oximetry Oxygen Delivery Oxygen Flow Rate Fraction of Inspired Oxygen 03/14/24 21:05 03/14/24 20:00 03/14/24 20:00 Temperature 97.2 F L Pulse Rate 78 81 78 Respiratory Rate 18 18 Blood Pressure 134/66 Pulse Oximetry 93 93 Oxygen Delivery Nasal Cannula Oxygen Flow Rate 2 Fraction of Inspired Oxygen 03/14/24 21:10 03/15/24 00:00 03/15/24 04:00 Temperature Pulse Rate 68 71 53 L Respiratory Rate 20 Blood Pressure Pulse Oximetry Oxygen Delivery Oxygen Flow Rate Fraction of Inspired Oxygen 03/15/24 05:32 03/15/24 07:11 03/15/24 07:11 Temperature 97.8 F Pulse Rate 54 L 63 Respiratory Rate 18 20 Blood Pressure 129/55 L Pulse Oximetry 94 95 Oxygen Delivery Nasal Cannula Oxygen Flow Rate 1 Fraction of Inspired Oxygen 03/15/24 07:21 03/15/24 08:46 03/15/24 08:50 Temperature
[2024-03-15] MEDS: INSULIN ASPART (*BKC) 100 UNITS/ML SUB-Q ×2 (12:30→21:00)
[2024-03-15] MEDS: ACETAMINOPHEN 325 MG TABLET 650 MG PO ×2 (13:48→21:02)
[2024-03-15 17:13] LABS: Glucose Point of Care 163 mg/dl (65-105)
[2024-03-15] MEDS: AMOXICILLIN/CLAVULANATE K 875-125 MG TAB 1 TABLET PO (17:46)
[2024-03-15] MEDS: rOPINIRole HCL 1 MG TABLET 3 MG PO (21:01)
[2024-03-15] MEDS: ATORVASTATIN 40 MG TABLET PO (21:01)
[2024-03-15] MEDS: INSULIN GLARGINE (*BKC) 100 UNITS/ML 46 UNITS SUB-Q (21:01)
[2024-03-15] MEDS: oxyBUTYnin CHLORIDE 5 MG TABLET PO (21:02)
[2024-03-16] VITALS (13 sets, daily range): BP systolic 120; BP diastolic 60; PULSE 57–89; RESP 14–20; TEMP 36.6; O2SAT 91–95
[2024-03-16] MEDS: IPRATROPIUM 0.5 MG/ALBUTEROL SULFATE 2.5 MG AMPUL.NEB 3 ML INHALATION ×2 (02:05→07:42)
[2024-03-16 05:45] LABS: Hematocrit 45.2 % (37.0-47.0); Hemoglobin 14.2 g/dL (12.0-15.0); Mean Corpuscular HGB Conc 31.4 g/dl (32-36); Mean Corpuscular Hemoglobin 28.9 pg (26-34); Mean Corpuscular Volume 92.1 fl (80-100); Mean Platelet Volume 9.4 fl (7.4-10.4); Platelet Count Result 347 k/mm3 (150-375); Red Blood Count 4.91 M/mm3 (4.2-5.4); Red Cell Distribution Width 15.5 % (11.5-14.5); White Blood Count 13.3 K/mm3 (4.5-10.0)
[2024-03-16 05:55] LABS: Anion Gap 2 mmol/L (4-12); Blood Urea Nitrogen 21 mg/dL (7-17); Calcium 9.2 mg/dL (8.4-10.2); Carbon Dioxide 34 mmol/L (22-30); Chloride 100 mmol/L (98-107); Estimated CRCL calculation 94 ml/min; Estimated Glomerular Filt Rate > 60; Glucose 93 mg/dL (65-110); Potassium 4.5 mmol/L (3.4-5.0); Sodium 136 mmol/L (137-145)
[2024-03-16 07:36] LABS: Glucose Point of Care 331 mg/dl (65-105)
[2024-03-16 09:02] LABS: Glucose Point of Care 92 mg/dl (65-105)
[2024-03-16] MEDS: NORTRIPTYLINE HCL 25 MG CAPSULE PO ×2 (09:17→12:11)
[2024-03-16] MEDS: PRIMIDONE 250 MG TABLET PO (09:17)
[2024-03-16] MEDS: CITALOPRAM HYDROBROMIDE 20 MG TABLET 40 MG PO (09:17)
[2024-03-16] MEDS: lisinopriL 10 MG TABLET 30 MG PO (09:17)
[2024-03-16] MEDS: GABAPENTIN 400 MG CAPSULE 800 MG PO ×2 (09:18→12:11)
[2024-03-16] MEDS: APIXABAN 5 MG TABLET PO (09:18)
[2024-03-16] MEDS: AMOXICILLIN/CLAVULANATE K 875-125 MG TAB 1 TABLET PO (09:18)
[2024-03-16] MEDS: TOLNAFTATE 1% POWDER 45 GM BTL 1 APPLIC TOPICAL (09:18)
[2024-03-16] MEDS: FAMOTIDINE 20 MG TABLET 40 MG PO (09:18)
[2024-03-16] MEDS: guaiFENesin 600 MG/DEXTROMETHORPHAN 30 MG SR TAB 12 HR 1 TAB PO (09:18)
[2024-03-16] MEDS: METOPROLOL TARTRATE 50 MG TAB PO (09:19)
[2024-03-16] MEDS: INSULIN GLARGINE (*BKC) 100 UNITS/ML 42 UNITS SUB-Q (09:21)
--- NOTE | 2024-03-16 11:29 | HOMEO2EVAL ---
Evaluation was performed at [facility] Home Oxygen Evaluation RC: Home Oxygen (O2) Evaluation Start: 03/16/24 08:36 Freq: ONCE Status: Active Protocol: RPE Activity Type Activity Date Activity User E-sign Co-sign Detail Recorded Client Recorded Date Recorded By Document 03/16/24 11:15 AMELIA [email or web address] 03/16/24 11:29 AMELIA Document 03/16/24 11:20 AMELIA [email or web address] 03/16/24 11:29 AMELIA Document 03/16/24 11:25 AMELIA [email or web address] 03/16/24 11:29 AMELIA 03/16/24 03/16/24 03/16/24 11:15 11:20 11:25 Home O2 Evaluation [Oxygen] -Test Phase Resting Exercise Resting -Oxygen Delivery Room Air Room Air Room Air [Pulse Oximetry] -Pulse Oximetry (90-100 %) 93 91 94 [Pulse Rate] -Pulse Rate (60-100 beats/min) 76 89 82 [Comments] -Home Oxygen Evaluation Comments working with PT No home O2 exercises and needed at this standing time [Charges] -Evaluation Charges O2 Evaluation by Pulmonary
--- NOTE | 2024-03-16 11:29 | PCRCNOTE ---
Home O2 eval completed. No home O2 needed at this time. RN notified.
[2024-03-16 12:09] LABS: Glucose Point of Care 147 mg/dl (65-105)
--- NOTE | 2024-03-16 12:11 | PM.DS ---
DS: Admitting Diagnosis Discharge Date 03/16/24 Admitting Diagnosis PNA DS: Discharge Diagnosis Discharge Diagnosis (1) Pneumonia: Code(s): J18.9 - Pneumonia, unspecified organism Status: Acute (2) COPD (chronic obstructive pulmonary disease): Code(s): J44.9 - Chronic obstructive pulmonary disease, unspecified Status: Acute (3) T2DM (type 2 diabetes mellitus): Code(s): E11.9 - Type 2 diabetes mellitus without complications Status: Acute (4) Hypertension: Code(s): I10 - Essential (primary) hypertension Status: Acute DS: Summary Hospital Course Hospital Course: 63 y/o F presents here with shortness of breath, cough, and weakness with PMH of DM, COPD, HLD, HTN, RLS, and morbid obesity. Patient presents here from home with complaints of shortness of breath, productive cough, and generalized weakness. Reports cough is productive yielding green sputum. States she has felt similarly when she had pneumonia, last episode in Dec, treated successfully with azithromycin/ceftriaxone -> oral azithromycin/cefdinir.? No baseline O2 requirement. She was found to be hypooxic and was on 3 L in the ED. WBC 14.5, no anemia, D-dimer 0.95, creatinine 0.9 and GFR >60, glucose 179, lactic acid 1.3, BNP 721, UA not consistent with UTI (3+ glucose only).? CXR showed opacities in the bilateral mid and lower lung zones.? Chest CTA showed no large central PE, limited evaluation of lower lobe pulmonary arteries due to motion, and extensive patchy bilateral airspace disease compatible with pneumonia.Patient was started on Rocephin and azithromycin. She was also given DuoNebs and Mucinex. Patient slowly improved during hospital stay. She was able to be titrated off of oxygen. She had home O2 evaluation and they stated that she did not need oxygen at this time. She was transition to Augmentin. She completed azithromycin course while in hospital. Her labs and vital signs are stable and she is medically clear for discharge at this time Time Spent with Patient Time attestation: Total time spent providing and/or coordinating discharge services: Exam Narrative: GENERAL: Comfortable, no acute distress, morbid obesity HENMT: moist mucous membranes, to signs of candidiasis infection in the mouth EYES: EOM intact b/l NECK: no lymphadenopathy RESPIRATORY: minimal expiatory crackles, no increase in respiratory effort CARDIO: Regular rate and rhythm GI: soft, nontender, bowel sounds present SKIN/EXTREMITIES: no rashes, no edema, no redness or tenderness NEURO: PROM intact, answers questions appropriately, A&O x4 DS: Data Data Completed and Pending Labs on day of discharge: Labs from last 24 hours 03/16/24 03/16/24 03/16/24 11:44 08:59 05:40 WBC 13.3 H RBC 4.91 Hgb 14.2 Hct 45.2 MCV 92.1 MCH 28.9 MCHC 31.4 L RDW 15.5 H Plt Count 347 MPV 9.4 Sodium 136 L Potassium 4.5 Chloride 100 Carbon Dioxide 34 H Anion Gap 2 L BUN 21 H Creatinine 0.80 Estim Creat Clear Calc 94 Estimated GFR > 60 Glucose 93 POC Capillary Glucose 147 H 92 Calcium 9.2 03/15/24 03/15/24 20:32 17:06 WBC RBC Hgb Hct MCV MCH MCHC RDW Plt Count MPV Sodium Potassium Chloride Carbon Dioxide Anion Gap BUN Creatinine Estim Creat Clear Calc Estimated GFR Glucose POC Capillary Glucose 331 H 163 H Calcium Discharge Plan Discharge Discharging Clinician: Danette Walker Patient Disposition: Home, Self-Care Activity: no preference Diet: diabetic Discharge Instructions: Medications: Augmentin twice a day. Next dose tonight. Discharge disposition: Take medications as prescribed Monitor blood pressures Avoid social areas, you wear a mask when in social settings Encouraged to continue with yearly vaccinations Return to the emergency department if he developed sudden shortnes
== END 2024-03-16 13:10 | disposition home or self-care (01) | DRG 139 ==
LOC: ANHED 12:57 → ANH3MED 20:15
PROVIDERS: Internal Medicine Critical Care Medicine; Student in an Organized Health Care Education/Training Program; Admitting Provider Hospitalist; Emergency Provider Student in an Organized Health Care Education/Training Program; PCP Family Medicine; Visit Provider Hospitalist
DX: J18.9 Pneumonia, unspecified organism (principal); J44.0 Chronic obstructive pulmonary disease with (acute) lower respiratory infection; I48.20 Chronic atrial fibrillation, unspecified; I50.9 Heart failure, unspecified; I11.0 Hypertensive heart disease with heart failure; E78.5 Hyperlipidemia, unspecified; E66.01 Morbid (severe) obesity due to excess calories; M17.9 Osteoarthritis of knee, unspecified; G25.81 Restless legs syndrome; G62.9 Polyneuropathy, unspecified; R29.6 Repeated falls; F31.9 Bipolar disorder, unspecified; F41.9 Anxiety disorder, unspecified; F12.90 Cannabis use, unspecified, uncomplicated; F17.210 Nicotine dependence, cigarettes, uncomplicated; Z68.44 Body mass index [BMI] 60.0-69.9, adult; Z79.4 Long term (current) use of insulin; Z95.5 Presence of coronary angioplasty implant and graft; Z79.01 Long term (current) use of anticoagulants; Z99.3 Dependence on wheelchair
CPT/HCPCS: 36415; 36600; 71046; 71275; 80048; 80053; 81001; 82550; 82805; 82948; 83036; 83605; 83880; 85025; 85027; 85380; 87040; 87070; 87205; 93005; 94618; 94640; 94667; 94668; 96365; 97110; 97161; 97165; 97530; 99285; A9270; J0456; J0696; J1815; J7512; Q9967

== ENCOUNTER 2024-12-13 23:00 | Observation (INO) | payer OTHER, SELFPAY ==
--- NOTE | ~2024-12-13 | CT_ITS ---
EXAMINATION: CT cervical spine wo con DATE: 12/14/2024 13:27 INDICATION: Fall TECHNIQUE: Computed tomography (CT) of the cervical spine was performed without intravenous contrast. Automated exposure control and iterative reconstruction technique were employed. The dose-length pro duct was 584.60 mGy-cm. COMPARISON: None FINDINGS: Mild reversal of the normal cervical lordosis. Moderate osteoarthritis at the atlantoaxial articulati on. Vertebral body heights are normal. No acute fracture. Severe disc height loss with moderate left- sided and severe right-sided uncovertebral osteoarthritis at C4-C5 and C5-C6. Posterior endplate oste ophytes contribute to mild central canal stenosis at both of these levels. Moderate disc height loss at C6-C7 and mild disc height loss at C2-C3, C3-C4 and C7-T1. There is additional scattered mild to m oderate cervical uncovertebral osteoarthritis. There is also multilevel facet osteoarthritis, severe bilaterally at C7-T1 through T2-T3 with mild to moderate facet osteoarthritis and more cephalad cervi toño spine. There is moderate neural foraminal stenosis on the right at C4-C5 and C5-C6. There is mild neural foraminal stenosis at many of the remaining cervical neural foramina. Small amount of atheros clerotic calcification along the bilateral carotid bulbs. 8 mm coarse calcification in the left thyro id lobe. Visualized apices of lungs are clear. IMPRESSION: 1. Severe cervical spondylosis. No acute osseous abnormality. Reviewed, dictated and finalized at location A. [employer] CENTER SUPERVISOR
--- NOTE | ~2024-12-13 | XR_ITS ---
Right Knee Technique: AP, lateral, and sunrise views were obtained. Clinical History: Pain Findings: No fracture or dislocation is seen. There is severe tricompartmental osteoarthritis. There is extensive osteophyte formation and medial compartment narrowing. There is a 2.8 cm loose body in t he suprapatellar pouch region.. Soft tissues are unremarkable. No joint effusion is seen. Impression: Severe tricompartmental osteoarthritis. 2.8 cm loose body, as above. Reviewed, dictated and finalized at location M. JAILER Impression: Severe tricompartmental osteoarthritis. 2.8 cm loose body, as above.
--- NOTE | ~2024-12-13 | XR_ITS ---
Left Knee Technique: AP, lateral, and oblique views were obtained. Clinical History: Pain Findings: No fracture or dislocation is seen. There is severe tricompartmental degenerative change, w ith extensive osteophyte formation, and medial compartment narrowing. Soft tissues are unremarkable. No joint effusion is seen. Impression: Severe tricompartmental osteoarthritis. No acute fracture or dislocation seen. Reviewed, dictated and finalized at location . ERT GROWER Impression: Severe tricompartmental osteoarthritis. No acute fracture or dislocation seen.
--- NOTE | ~2024-12-13 | CT_ITS ---
EXAMINATION: CTA chest PE protocol DATE: 12/15/2024 23:04 INDICATION: r/o PE TECHNIQUE: Computed tomography angiography (CTA) of the chest was performed with 100 mL Omnipaque-350 intravenous contrast timed to evaluate the pulmonary arteries. Coronal maximum intensity projection 3D-reconstructions were created by the technologist. The dose-length product (DLP) was 1270.41 mGy-cm . Automated exposure control and iterative reconstruction technique were employed. COMPARISON: None. FINDINGS: Lung parenchyma and airways: Dependent atelectasis. Patent airways. Pleura: Unremarkable. Thoracic inlet, axillae and chest wall: 1.5 cm partially calcified left thyroid nodule. Thoracic aorta: No significant dilation. No dissection. Mild atherosclerotic aortic calcifications. Mediastinum: Normal. Heart and pericardium: Normal. Coronary artery calcifications: Mild. Upper abdomen: No significant finding. Bones: No acute osseous finding. Pulmonary arteries: Study quality: Adequate. No pulmonary emboli detected. IMPRESSION: No CT evidence of acute pulmonary embolus. No acute process detected in the chest. 1.5 cm partially calcified left thyroid nodule. Consider outpatient thyroid ultrasound for further ev aluation. Reviewed, dictated and finalized at location K. ENT MONITOR IMPRESSION: No CT evidence of acute pulmonary embolus. No acute process detected in the chest. 1.5 cm partially calcified left thyroid nodule. Consider outpatient thyroid ult rasound for further evaluation.
--- NOTE | ~2024-12-13 | CT_ITS ---
EXAMINATION: CT thoracic lumbar wo con DATE: 12/14/2024 13:27 INDICATION: Back injury. Fall. TECHNIQUE: Computed tomography (CT) of the thoracic and lumbar spine was performed without intravenou s contrast. Automated exposure control and iterative reconstruction technique were employed. The dose -length product was 1943.23 mGy-cm. COMPARISON: None FINDINGS: CT THORACIC SPINE: There is 8 degrees levocurvature of thoracic spine. Vertebral body heights are nor mal. There is mildly decreased disc height from T2-T3 through T9-T10 and at T11-T12. There is multile willy facet joint osteoarthritis, severe at several levels in the upper thoracic spine. There is mild n eural foraminal stenosis at a few levels on either side. There is mild central canal stenosis at T7-T 8 and T8-T9. CT LUMBAR SPINE: Alignment is normal. Vertebral body heights are normal. Intervertebral disc heights are normal. There is interbody fusion at L5-S1. The following disc levels are specifically discussed: L1-L2: The disc is bulging. There is mild bilateral facet joint osteoarthritis. There is mild right n eural foraminal stenosis. There is mild central canal stenosis. L2-L3: The disc is bulging. There is mild bilateral facet joint osteoarthritis. There is mild right n eural foraminal stenosis. There is mild central canal stenosis. L3-L4: The disc is bulging. There is severe bilateral facet joint osteoarthritis. There is mild bilat eral neural foraminal stenosis. There is mild central canal stenosis. L4-L5: The disc is bulging. There is severe bilateral facet joint osteoarthritis. There is mild bilat eral neural foraminal stenosis. There is mild central canal stenosis. L5-S1: The disc does not extend beyond the endplate margin. There is ankylosis of the facet joints wi th moderate hypertrophy. There is mild bilateral neural foraminal stenosis. There is no central canal stenosis. IMPRESSION: 1. No fracture. 2. Mild thoracic and lumbar spondylosis. Reviewed, dictated and finalized at location A. UIT RECORDER
--- NOTE | ~2024-12-13 | XR_ITS ---
AP view of the pelvis Clinical history: Pain Findings: No acute fracture or dislocation is seen. Osseous alignment is anatomic. Bilateral hip and SI joint spaces are preserved. Soft tissues are unremarkable. Impression: No significant abnormality is seen. Reviewed, dictated and finalized at location M. R TENDER Impression: No significant abnormality is seen.
--- NOTE | ~2024-12-13 | US_ITS ---
EXAMINATION: US venous doppler [facility] DATE: 12/15/2024 14:25 INDICATION: Pain and redness and swelling of the lower limbs. TECHNIQUE: Grayscale images without and with compression and Doppler images of the bilateral lower ex tremity veins were obtained. COMPARISON: None FINDINGS: Nonvisualization of the right common femoral, posterior tibial, peroneal, and greater saphenous veins . Noncompressible right superficial femoral vein. The right profunda (deep) femoral vein, popliteal, and gastrocnemius vein, and are patent. The left common femoral vein, popliteal vein, peroneal vein, posterior tibial veins, and greater saph enous vein are not visualized. Noncompressible left superficial femoral vein. The left profunda (deep ) femoral vein is patent. IMPRESSION: Bilateral femoral vein deep venous thrombosis. Extremely limited evaluation with multiple vessels not visualized bilaterally. Reviewed, dictated and finalized at location K. GRINDER IMPRESSION: Bilateral femoral vein deep venous thrombosis. Extremely limited evaluation wit h multiple vessels not visualized bilaterally.
--- NOTE | ~2024-12-13 | CT_ITS ---
Non-contrast Head CT History: Status post fall COMPARISON: 08/08/2023 Technique: Axial non-contrast imaging of the brain was performed. Dose reduction technique was used on this scan by utilizing automated exposure control and iterative reconstruction technique. The dose -length product (DLP) was 1135.00 mGy-cm. Findings: There is no evidence of intracranial hemorrhage, mass lesion, or acute infarct. Brain par enchyma appears normal. The ventricles and subarachnoid spaces are normal in size. The calvarium ap pears normal. The visualized paranasal sinuses and mastoid air cells are clear. Impression: No significant abnormality seen. Reviewed, dictated and finalized at location . OGICAL SCIENCES PROFESSOR Impression: No significant abnormality seen.
[2024-12-13 23:00] VITALS: BP 102/70; PULSE 80; RESP 20; TEMP 37.1; O2SAT 98
--- OUTSIDE RECORDS SUMMARY | 2024-12-13 23:03 | XMS_ITS | Clinical Summary ---
Author Organization [facility] Address [address] [place] [address] Care Team Providers Care Email Designer Name Role Phone Karime Aguilera RN, Haresh K MD Primary Care Provider [phone] Source Comments [facility],non-owned Affiliates and Associated Physician Practices is amultiple site organization consisting of ambulatory clinics and hospital sitesin [place], [place], [place] and [place]. This disclosure is being madepursuant to the Care Everywhere program and may not contain all information available regarding this patient. Last updated 18.[facility] Allergies Active Allergy Reactions Criticality Noted Date Comments Aspirin Nausea and/or Vomiting High 10/31/2016 Ticagrelor Shortness of Breath High 05/04/2018 Codeine GI Discomfort 03/03/2018 Morphine Swelling 03/03/2018 Of uvula Medications * Be aware that medications may not be up to date on this document. Alwaysverify current medications with the patient. Medication Sig Dispensed Refills Start Date End Date Status rOPINIRole (REQUIP) 3 MG tablet TK 1 T PO hs 6 02/01/2018 Active nicotine polacrilex (COMMIT) 4 MG lozengeIndication s:Nicotine Dependence Reasons: Nicotine Addiction 3 01/11/2018 Active naproxen (NAPROSYN) 500 MG tablet TK 1 T PO TID AFTER MEALS 6 02/01/2018 Active insulin syringe-needle (BD ULTRAFINE II) 31G X 04/01 0.5 ML syringe U TID 6 01/05/2018 Active lisinopril (PRINIVIL; ZESTRIL) 20 MG tablet TK 1 T PO D 6 01/26/2018 Active metFORMIN (GLUCOPHAGE) 500 MG tablet TK 1 T PO BID 6 02/01/2018 Active LANTUS vial ADM 20 UNI SC BID 6 01/30/2018 Active gabapentin (NEURONTIN) 300 MG capsule TK 1 C PO TID WC 6 02/01/2018 Active citalopram (CELEXA) 40 MG tablet TK 1 T PO D PRN 6 02/01/2018 Active fluticasone-salme terol 232-14 MCG/ACT inhaler INL 2 PFS PO BID UTD 6 02/16/2018 Active atorvastatin (LIPITOR) 40 MG tablet TK 1 T PO QD 5 01/27/2018 Active albuterol (PROVENTIL;VENTOL IN) (2.5 MG/3ML) 0.083% nebulizer solution USE 1 VIAL IN NEB TID UTD 6 01/05/2018 Active VENTOLIN HFA 108 (90 BASE) MCG/ACT inhaler INL 2 PFS PO Q 4 H PRN 3 12/22/2017 Active insulin lispro protamine & lispro (HUMALOG MIX 75/25) vial Inject 20 Units subcutaneously once daily Active docusate sodium (COLACE) 100 MG capsule Take 1 capsule by mouth 2 times daily 60 capsule 1 05/08/2018 Active Blood Glucose Monitoring Suppl (ZENTICKET VERIO FLEX SYSTEM) w/Device KIT 01/08/2022 Active TRULICITY 1.5 MG/0.5ML injection 03/11/2022 Active ergocalciferol (DRISDOL) 1.25 MG (16392 UT) capsule ergocalciferol (vitamin D2) 1,250 mcg (50,000 unit) capsule TAKE 1 CAPSULE BY MOUTH WEEKLY Active famotidine (PEPCID) 40 MG tablet 03/03/2022 Active gabapentin (NEURONTIN) 800 MG tablet 03/10/2022 Active ONETOUCH VERIO test strip 03/06/2022 Active hydroCHLOROthiazi de (HYDRODIURIL) 25 MG tablet 03/03/2022 Active HYDROcodone-aceta minophen (NORCO) 5-325 MG tablet 03/13/2022 Active insulin lispro (HUMALOG;ADMELOG) 100 UNIT/ML pen USE PER SLIDING SCALE PROTOCOL. 2 PENS MUST LAST 90 DAYS 09/26/2021 Active venlafaxine XR 24hr (EFFEXOR XR) 75 MG capsule 01/15/2022 Active SUMAtriptan (IMITREX) 50 MG tablet 04/02/2021 Active QUEtiapine (SEROQUEL) 50 MG tablet Take 50 mg by mouth at bedtime 02/25/2022 Active oxybutynin CR 24hr (DITROPAN-XL) 10 MG tablet Take 10 mg by mouth once daily Active ibuprofen (MOTRIN) 600 MG tablet Take 1 (one) tablet by mouth every 6 hours as needed for Pain 30 tablet 04/04/2022 Active acetaminophen (TYLENOL) 325 MG tablet Take 2 (two) tablets by mouth every 6 hours as needed for Fever or Pain Maximum allowable Acetaminophen amount = 4 Grams (4000 mg) / 24 hours. 30 tablet 04/04/2022 Active triamcinolone acetonide (Kenalog) 0.1 % ointmentIndicatio ns:Stasis dermatitis of both legs Apply to affected areas over legs up to twice daily as needed for rash/itch. Avoid on face/armpits/groin. Limit use to up to 2 weeks per month. 30 day supply. 454 g 1 04/14/2024 Active Active Problems Problem Noted Date Diagnosed Date Vulvar lesion 03/15/2022 Pre-op testing 05/07/2018 HGSIL (high grade squamous i ntraepithelial lesion) on Pap smear of cervix 05/07/2018 Endometrium, hyperplasia 05/07/2018 S/P vaginal hysterectomy 05/07/2018 Immunizations Name Administration Dates Next Due FLU VACCINE QUAD IIV4 SPLIT 0.25 ML IM 8,07/25/2017 Family History Medical History Relation Name Comments CAD (Coronary Artery Disease) Father Depression Father Hyperlipidemia Father Cancer - Breast Maternal Grandmother CAD (Coronary Artery Disease) Mother Depression Mother Diabetes - Type 2 Mother Hyperlipidemia Mother Hypertension Mother Relation Name Status Comments Father Maternal Grandmother Mother Social History Tobacco Use Types Packs/Day Years Used Date Smoking Tobacco: Every Day Cigarettes Smokeless Tobacco: Never Tobacco Cessation:Ready to Q uit: No; Counseling Given: Yes Alcohol Use Standard Drinks/Week Comments Yes 0 (1 standard drink = 0.6 oz pur e alcohol) occ Sex and Gender Information Value Date Recorded Sex Assigned at Not on file Gender Identity Not on file Sexual Orientation Not on file Last Filed Vital Signs Vital Sign Reading Time Taken Comments Blood Pressure 131/88 03/24/2024 2:20 PM CDT Pulse 55 04/04/2022 9:18 AM CDT Temperature 36.4 ??C (97.5 ??F) 04/04/2022 8:55 AM CD T Respiratory Rate 16 04/04/2022 9:18 AM CDT Oxygen Saturation 100% 04/04/2022 9:18 AM CDT Inhaled Oxygen Concentration - - Weight 155.1 kg (342 lb) 03/24/2024 2:20 PM CDT Height 160 cm (5' 3 ) 03/24/2024 2:20 PM CDT Body Mass Index 60.58 03/24/2024 2:20 PM CDT Plan of Treatment Health Maintenance Due Date Last Done Comments COLOGUARD (AGES 45-75) - COLON CA SCREENING 1961 COLON MONITORING 1961 COLONOSCOPY - COLON CA SCREENING 1961 CT COLONOGRAPHY - COLON CA SCREENING 1961 Colorectal Cancer Screening 1961 FIT - COLON CA SCREENING 1961 FLEX SIG - COLON CA SCREENING 1961 HIV SCREENING 1976 HEPATITIS C SCREENING 06/21/1979 DTAP/TDAP/TD VACCINES (1 - Tdap) 1980 PNEUMOCOCCAL VACCINE 50+ (1 of 2 - PCV) 1980 PNEUMOCOCCAL VACCINE (1 of 2 - PCV) 1980 ZOSTER VACCINE (1 of 2) 2011 MAMMOGRAM 02/07/2020 02/06/2018 (Done Outside Per Patient) Respiratory Syncytial Virus (RSV) Vaccine Pt: or over 60 yrs (1 - Risk 60-74 years 1-dose series) 2021 COVID-19 VACCINE (1 - 2023- season) 2024 INFLUENZA VACCINE (#1) 2024 09/08/2018, 2016 DEPRESSION SCREENING 11/17/2024 SCREENING FOR DIABETES 04/04/2025 2, 04/04/2022, 04/04/2022, Additional history exists HEPATITIS B VACCINE Aged Out No longe r eligible based on patient's age to complete this topic HIB VACCINE Aged Out No longer eligi ble based on patient's age to complete this topic HPV VACCINE Aged Out No longer eligi ble based on patient's age to complete this topic MENINGOCOCCAL (Group B) VACCINE Aged Out No longer eligible based on patient's age to complete this topic MENINGOCOCCAL VACCINE Aged Out No karely mike eligible based on patient's age to complete this topic Procedures Procedure Name Priority Date/Time Associated Diagnosis Comments GLUCOSE - POINT OF CARE Routine 04/04/2022 8:36 AM CDT from Last 3 Months or Most Recently Relevant to Health Maintenance Results * GLUCOSE - POINT OF CARE (04/04/2022 8:36 AM CDT) [facility] Glucose WB/POC 84 70 - 106 mg/dL 04/04/2022 8:46 AM CDT [facility] Specimen Type Cap Fingerstick 2021 8:46 AM CDT [facility] Blood BLOOD SPECIMEN / Unknown 04/04/2022 8:36 AM CDT 04/04/2022 8:46 AM CDT Tin Khan MD LAB - POINT OF CARE ORDERABLES [facility] [address] [place] [address] from Last 3 Months or Most Recently Relevant to Health Maintenance Advance Directives * Full Code (Latest Code Status on File) Date Activated Date Inactivated Comments 05/07/2018 11:05 AM 05/08/2018 2:57 PM Care Teams Email Designer Relationship Specialty Start Date End Date Gurvinder Renteria MD [address] [place] [address] PCP - General 01/01/22 Karime Aguilera, RN 05/07/18
--- OUTSIDE RECORDS SUMMARY | 2024-12-13 23:03 | XMS_ITS | Clinical Summary ---
Author Organization [facility] Address [address] [place] [address]. [place], [place] [address] [place] [address] Care Team Providers Care City Plant Supervisor Name Role Phone Unavailable Primary Care Provider Unavailabl e Social History Tobacco Use Types Packs/Day Years Used Date Smoking Tobacco: Never Assessed Comments Unknown Sex and Gender Information Value Date Recorded Sex Assigned at Not on file Legal Sex Female 7:59 PM CDT Gender Identity Not on file Sexual Orientation Not on file Plan of Treatment Health Maintenance Due Date Last Done Comments Cervical Cancer Screening Pa p Smear (Age 30 to 64) Every 3 Years 1961 Colorectal Cancer Screening Colonoscopy (10 Years) 1961 Annual Physical 1964 Hepatitis C 1979 DTaP, Tdap and Td Vaccines ( 1 - Tdap) 1980 Cervical Cancer Screening Pa p with HPV Testing (Age 30 to 64) Every 5 Years 1991 Cervical Cancer Screening with HPV 1991 Mammogram Screening 2001 Zoster Vaccines (1 of 2) 2011 COVID-19 Vaccine (2023-2 5 season) 2024 Influenza Adult (#1) 2024 RSV Immunization or 60+ Years (1 - 1-dose 75+ series) 2036 Meningococcal B Vaccine Aged Out No l onger eligible based on patient's age to complete this topic Meningococcal Vaccine Aged Out No karely mike eligible based on patient's age to complete this topic Pneumococcal Vaccine: Pediat rics (0 to 5 Years) and At-Risk Patients (6 to 64 Years) Aged Out No longer eligible b ased on patient's age to complete this topic RSV Immunizations Under 20 Months Aged Out No longer eligible based on patient's age to complete this topic
--- OUTSIDE RECORDS SUMMARY | 2024-12-13 23:03 | XMS_ITS | Encounter Summary ---
Author Organization [facility] Address [address] [place] [address] Care Team Providers Care Social Work Administrator Name Role Phone Karime Aguilera RN, Haresh K MD Primary Care Provider [phone] Reason for Visit * Reason Onset Date Comments Request Lab Order 09/10/2023 Imaging 09/10/2023 Encounter Details Date Type Department Care Team (Late st Contact Info) Description 09/10/2023 Telephone [facility] [address] [place] [address] Christy Khan MD [address] [place] [address] Request Lab Order; Imaging Social History Tobacco Use Types Packs/Day Years Used Date Smoking Tobacco: Every Day Cigarettes Smokeless Tobacco: Never Alcohol Use Standard Drinks/Week Comments Yes 0 (1 standard drink = 0.6 oz pur e alcohol) occ Sex and Gender Information Value Date Recorded Sex Assigned at Not on file Gender Identity Not on file Sexual Orientation Not on file documented as of this encounter Miscellaneous Notes * Telephone Encounter - Pari Denton RN - 09/10/2023 10:17 AM CDT RN called pt. Pt needs screening mammogram ordered and sent to [place]. RN ordered and faxed to [phone] RN scheduled pt for WWE 10/14/2023 9:15 AM Christy Khan MD Pt accepts appt * Telephone Encounter - Nataliia Bangura - 09/10/2023 10:05 AM CDT Pt wants Mammogram order sent to [facility] in [place], [place]. documented in this encounter Plan of Treatment Not on file documented as of this encounter Visit Diagnoses Diagnosis Encounter for screening mammogram for malignant neoplasm of breast- Primary Other screening mammogram documented in this encounter Care Teams Social Work Administrator Relationship Specialty Start Date End Date Gurvinder Renteria MD [address] [place] [address] PCP - General 01/01/22 Karime Aguilera RN 05/07/18 documented as of this encounter
--- OUTSIDE RECORDS SUMMARY | 2024-12-13 23:03 | XMS_ITS | Referral Summary ---
Author Organization [facility] Address [address] [place] [address] Care Team Providers Care Repair Service Clerk Name Role Phone Karime Aguilera RN, Haresh K MD Primary Care Provider [phone] Source Comments [facility],non-owned Affiliates and Associated Physician Practices is amultiple site organization consisting of ambulatory clinics and hospital sitesin [place], [place], [place] and [place]. This disclosure is being madepursuant to the Care Everywhere program and may not contain all information available regarding this patient. Last updated 18.[facility] Allergies Active Allergy Reactions Criticality Noted Date [...] 1 05/08/2018 Active Blood Glucose Monitoring Suppl ([employer] VERIO FLEX SYSTEM) w/Device KIT 01/08/2022 Active TRULICITY 1.5 MG/0.5ML injection 03/11/2022 Active ergocalciferol (DRISDOL) 1.25 MG (32076 UT) capsule ergocalciferol (vitamin D2) 1,250 mcg [...] QUAD IIV4 SPLIT 0.25 ML IM 8,07/25/2017 Social History Tobacco Use Types Packs/Day Years [...] 03/24/2024 2:20 PM CDT Plan of Treatment Not on file Procedures Procedure Name Priority Date/Time Associated Diagnosis Comments GLUCOSE - POINT OF CARE Routine 04/04/2022 8:36 AM CDT from Last 3 Months or Most Recently Relevant to Health Maintenance Results * GLUCOSE - POINT OF CARE (04/04/2022 8:36 AM CDT) [facility] Glucose WB/POC 84 70 - 106 mg/dL 04/04/2022 8:46 AM CDT [facility] Specimen Type Cap Fingerstick 2021 8:46 AM CDT [facility] Blood BLOOD SPECIMEN / Unknown 04/04/2022 8:36 AM CDT 04/04/2022 8:46 AM CDT Tin Khan MD LAB - POINT OF CARE ORDERABLES [facility] [address] [place] [address] from Last 3 Months or Most Recently Relevant to Health Maintenance Advance Directives * Full Code (Latest Code Status on File) Date Activated Date Inactivated Comments 05/07/2018 11:05 AM 05/08/2018 2:57 PM Care Teams Repair Service Clerk Relationship Specialty Start Date End Date Gurvinder Renteria MD [address] [place] [address] PCP - General 01/01/22 Karime Aguilera, RN 05/07/18
--- OUTSIDE RECORDS SUMMARY | 2024-12-13 23:03 | XMS_ITS | Data Portability ---
Author Organization [facility] Address [address] [place] [address] Assessment Encounter Date Assessment Date Assessment LastModified by Organization Details LastModified Time 08/10/2020 08/10/2020 BALJEET Romero, PAStacyS [email or web address] Not available 08/10/2020 17:55:48 Plan of Treatment Reminders Order Date Submit Date Provider Last Modified By Organization Details Last Modified Time Details Appointments None recorded. Lab HbA1c (hemoglob in A1c), blood 2019 CASTLE HAYNE [facility], [address], [place], [address], 0 09:13:56 HbA1c (hemoglob in A1c), blood 2019 [email or web address] In-Office Order, Internal Use Only DO Not Attach Compendium DO Not Attach Compendium, Do Not Delete/merge, [id number] 13:26:40 CBC w/ auto diff 2019 NARDA [facility], [address], [place], [address], 0 09:13:54 CMP, serum or plasma 2019 NARDA [facility], [address], [place], [address], 0 09:13:55 lipid panel, serum 2019 NARDA [facility], [address], [place], [address], 0 09:13:56 urinalysi s, dipstick 2019 [email or web address] In-Office Order, Internal Use Only DO Not Attach Compendium DO Not Attach Compendium, Do Not Delete/merge, [id number] 12:32:17 culture, urine 2019 CASTLE HAYNE [facility], [address], [place], [address], 0 06:11:39 bacterial vaginosis + vaginitis panel, vaginal 2019 CASTLE HAYNE [facility], [address], [place], [address], 0 06:10:56 Referral endocrino logy referral - Please call patient to schedule appt. Thank you 2019 [place], [address], [place], [address], 1 08:32:12 physical therapist referral 2019 [facility], [address] [place], [address], 0 15:19:25 pain managemen t referral - Please call patient to schedule appt. Thank you 2019 [facility], [address], [address], [place], [address], 1 09:49:20 Procedures nerve conductio n study/EMG , lower extremity (PROC) 2019 [facility] ([facility]iology [facility]), [address], [place], [address], 0 10:50:21 Surgeries None recorded. Imaging US, doppler, venous 2019 [facility] ([facility] Sched[facility]), [address] [place], [address], 0 15:19:25 Medication Orders ketorolac 10 mg tablet 2019 [facility] #62789, [address] [place], [place], [id number], 0 12:21:26 clindamyc in HCl 300 mg capsule 2019 [facility] #25463, [address] [place], [place], [id number], 0 11:26:05 Diflucan 150 mg tablet 2019 020 [facility] #41398, [address] [place], [place], [id number], 0 11:26:22 DOK 100 mg capsule 2019 [facility] #90920, [address] [place], [place], [id number], 0 12:33:38 naproxen 500 mg tablet 2019 [facility] #36196, [address] [place], [place], [id number], 0 12:33:41 isosorbid e mononitra te ER 30 mg tablet,ex tended release 24 hr 2019 [facility] #84007, [address] [place], [place], [id number], 0 12:33:35 metformin 500 mg tablet 2019 020 [facility]110[facility], [address] [place], [place], [id number], 0 12:33:42 Basaglar KwikPen U-100 Insulin 100 unit/mL (3 mL) subcutane ous 2019 020 [facility]95394, [address] [place], [place], [id number], 0 12:33:45 Humalog Mix 75-25 (U-100) Insulin 100 unit/mL subcutane ous suspensio n 2019 020 [facility]17706, [address] [place], [place], [id number], 0 12:33:44 Symbicort 160 mcg-4.5 mcg/actua tion HFA aerosol inhaler 2019 020 [facility]161, [address] [place], [place], [id number], 0 12:33:35 fluticaso ne 232 mcg-salme terol 14 mcg/actua tion breath activated powdr 2019 020 [facility]72449, [address] [place], [place], [id number], 0 12:33:44 albuterol sulfate HFA 90 mcg/actua tion aerosol inhaler 2019 020 [facility] #[id number] [place], [place], [id number], 0 12:33:41 Zithromax Z-Brendan 250 mg tablet 2019 020 [facility] #[id number] [place], [place], [id number], 0 11:25:52 Diflucan 150 mg tablet 2019 020 mnelsonma [facility] #42443, [address] [place], [place], [id number], 0 11:26:22 oxybutyni n chloride 5 mg tablet 2019 020 [facility] #96854, [address] [place], [place], [id number], 0 12:33:44 lisinopri l 20 mg tablet 2019 [facility] #68830, [address] [place], [place], [id number], 0 12:33:43 carvedilo l 6.25 mg tablet 2019 [facility] #25777, [address] [place], [place], [id number], 0 12:34:16 nortripty line 25 mg capsule 2019 [facility] #22495, [address] [place], [place], [id number], 0 12:33:45 gabapenti n 800 mg tablet 2019 [facility] #97423, [address] [place], [place], [id number], 0 12:33:37 atorvasta tin 40 mg tablet 2019 [email or web address] [facility] #64428, [address] [place], [place], [id number], 0 09:39:25 aspirin 81 mg tablet,de layed release 2019 [facility] #86881, [address] [place], [place], [id number], 0 12:33:37 sumatript an 50 mg tablet 2019 [facility] #61598, [address] [place], [place], [id number], 0 12:33:36 Macrobid 100 mg capsule 2019 [facility] #10016, [address] [place], [place], [id number], 0 11:27:12 nystatin 100,000 unit/gram topical cream 2019 [facility] #16296, [address] [place], [place], [id number], 0 17:46:07 fluconazo le 150 mg tablet 2019 020 [facility] #11761, [address] [place], [place], [id number], 0 11:26:22 zinc oxide 40 % topical ointment 2019 [facility] #47211, [address] [place], [place], [id number], 0 17:46:08 amoxicill in 500 mg tablet 2019 [facility], [address] [place] [address], [id number], 0 12:52:15 lidocaine HCl 2 % mucosal jelly 2019 [facility], [address] [place] [address] [place], [id number], 0 12:50:16 metronida zole 500 mg tablet 2019 [facility], [address] [place] [address], [id number], 0 12:50:20 Diflucan 150 mg tablet 2019 [facility], [address] [place] [address], [id number], 0 12:50:15 Patient TargetsNo targets recorded. Patient Instructions Encounter Date Encounter Id Patient Instructions Last Modified By Organization Details Last Modified Time 06/13/2020 [id number] osteoarthritis: care instructions [facility] Not available 06/13/2020 12:33:26 learning about type 2 diabetes [facility] Not available 06/13/2020 12:33:25 type 2 diabetes: care instructions [facility] Not available 06/13/2020 12:33:26 When You Want to Lose Weight: Care Instructions [facility] Not available 06/13/2020 12:33:25 chronic obstructive pulmonary disease (COPD): care instructions [facility] Not available 06/13/2020 12:33:25 learning about copd and how to prevent lung infections [facility] Not available 06/13/2020 12:33:25 upper respirator y infection (cold): care instructions [facility] Not available 06/13/2020 12:33:26 Urge Incontinence: Care Instructions [facility] Not available 06/13/2020 12:33:25 deciding about using medicines to quit smoking [facility] Not available 06/13/2020 12:33:26 Quitting Tobacco : Care Instructions [facility] Not available 06/13/2020 12:33:25 08/23/2020 [id number] candidiasis: car e instructions [email or web address] Not available 08/23/2020 21:33:59 09/27/2020 [id number] deciding about using medicines to quit smoking [facility] Not available 09/27/2020 15:18:48 Quitting Tobacco : Care Instructions [facility] Not available 09/27/2020 15:18:48 osteoarthritis: care instructions [facility] Not available 09/27/2020 15:18:48 learning about type 2 diabetes jhsieh Not available 09/27/2020 15:18:48 type 2 diabetes: care instructions sieh Not available 09/27/2020 15:18:49 When You Want to Lose Weight: Care Instructions sieh Not available 09/27/2020 15:18:48 chronic obstructive pulmonary disease (COPD): care instructions sieh Not available 09/27/2020 15:18:48 learning about copd and how to prevent lung infections jhsieh Not available 09/27/2020 15:18:48 high cholesterol : care instructions jhsieh Not available 09/27/2020 15:18:49 Urge Incontinence: Care Instructions sieh Not available 09/27/2020 15:18:48 restless legs syndrome: care instructions si Not available 09/27/2020 15:18:49 leg and ankle edema: care instructions si Not available 09/27/2020 15:18:48 Reason for Referral Endocrinology Referral for T ype 2 diabetes mellitus uncontrolled diabetes Please call patient to schedule appt. 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 Thank you Referring Physician: Murali Silva, Internal Medicine, Encounter Date: 09/27/2020 Results Created Date Observation Date Name Description Value Unit Range Abnormal Flag Note LastModifiedBy Organization Detail LastModifiedTime 08/23/2008/24/2020 CBC w/ auto diff WBC 12.4 x10e3 /uL 3.4-10 .8 above high normal Not Available [facility] ([facility]) [address] [place], [address], 08/24/2020 09:13:53 08/23/2008/24/2020 CBC w/ auto diff RBC 6.31 x10e6 /uL 3.77-5 .28 above high normal Not Available [facility] ([facility]) [address] [place], [address], 08/24/2020 09:13:53 08/23/2008/24/2020 CBC w/ auto diff hemoglobin 18.1 g/dL 11.1-1 5.9 above high normal Not Available [facility] ([facility]) [address] [place], [address], 08/24/2020 09:13:53 08/23/2008/24/2020 CBC w/ auto diff hematocrit 54.7 % 34.0-4 6.6 above high normal Not Available [facility] ([facility]) [address] [place], [address], 08/24/2020 09:13:53 08/23/2008/24/2020 CBC w/ auto diff MCV 87 fL 79-97 Not Available [facility] ([facility]) [address] [place], [address], 08/24/2020 09:13:53 08/23/2008/24/2020 CBC w/ auto diff MCH 28.7 pg 26.6-3 3.0 Not Available [facility] ([facility]) [address] [place], [address], 08/24/2020 09:13:53 08/23/2008/24/2020 CBC w/ auto diff MCHC 33.1 g/dL 31.5-3 5.7 Not Available [facility] ([facility]) [address] [place], [address], 08/24/2020 09:13:53 08/23/2008/24/2020 CBC w/ auto diff RDW 14.0 % 11.7-1 5.4 Not Available [facility] ([facility]) [address] [place], [address], 08/24/2020 09:13:53 08/23/2008/24/2020 CBC w/ auto diff platelets 324 x10e3 /uL 150-45 0 Not Available [facility] ([facility]) [address] [facility], [place], [address], 08/24/2020 09:13:53 08/23/2008/24/2020 CBC w/ auto diff neutrophils 70 % not estab. Not Available [facility] ([facility]) [address] [facility], [place], [address], 08/24/2020 09:13:53 08/23/2008/24/2020 CBC w/ auto diff lymphs 20 % not estab. Not Available [facility] ([facility]) [address] [facility] [place], [address], 08/24/2020 09:13:53 08/23/2008/24/2020 CBC w/ auto diff monocytes 6 % not estab. Not Available [facility] ([facility]) [address] [place], [address], 08/24/2020 09:13:53 08/23/2008/24/2020 CBC w/ auto diff eos 2 % not estab. Not Available [facility] ([facility]) [address] [facility] [place], [address], 08/24/2020 09:13:53 08/23/2008/24/2020 CBC w/ auto diff basos 1 % not estab. Not Available [facility] ([facility]) [address] [facility], [place], [address], 08/24/2020 09:13:53 08/23/2008/24/2020 CBC w/ auto diff immature cells ADDICTIONS THERAPIST Not Available [facility] ([facility]) [address] [place], [address], 08/24/2020 09:13:53 08/23/2008/24/2020 CBC w/ auto diff neutrophils (absolute) 8.8 x10e3 /uL 1.4-7. 0 above high normal Not Available [facility] ([facility]) [address] [place], [address], 08/24/2020 09:13:53 08/23/2008/24/2020 CBC w/ auto diff lymphs (absolute) 2.5 x10e3 /uL 0.7-3. 1 Not Available [facility] ([facility]) [address] [facility], [place], [address], 08/24/2020 09:13:53 08/23/2008/24/2020 CBC w/ auto diff monocytes(ab solute) 0.8 x10e3 /uL 0.1-0. 9 Not Available [facility] ([facility]) [address] [facility], [place], [address], 08/24/2020 09:13:53 08/23/2008/24/2020 CBC w/ auto diff eos (absolute) 0.2 x10e3 /uL 0.0-0. 4 Not Available [facility] ([facility]) [address] [facility], [place], [address], 08/24/2020 09:13:53 08/23/2008/24/2020 CBC w/ auto diff baso (absolute) 0.1 x10e3 /uL 0.0-0. 2 Not Available [facility] ([facility]) [address] [facility], [place], [address], 08/24/2020 09:13:53 08/23/2008/24/2020 CBC w/ auto diff immature granulocytes 1 % not estab. Not Available [facility] ([facility]) [address] [facility], [place], [address], 08/24/2020 09:13:53 08/23/2008/24/2020 CBC w/ auto diff immature grans (abs) 0.1 x10e3 /uL 0.0-0. 1 Not Available [facility] ([facility]) [address] [facility], [place], [address], 08/24/2020 09:13:53 08/23/2008/24/2020 CBC w/ auto diff NRBC ADDICTIONS THERAPIST Not Available [facility] ([facility]) [address] [facility] [place], [address], 08/24/2020 09:13:53 08/23/2008/24/2020 CBC w/ auto diff hematology comments: ADDICTIONS THERAPIST Not Available [facility] ([facility]) [address] [facility] [place], [address], 08/24/2020 09:13:53 08/23/2008/24/2020 CMP, serum or plasm a glucose 312 mg/dL 65-99 above high normal Not Available [facility] ([facility]) [address] [facility] [place], [address], 08/24/2020 09:13:55 08/23/2008/24/2020 CMP, serum or plasm a BUN 15 mg/dL 6-24 Not Available [facility] ([facility]) [address] [facility] [place], [address], 08/24/2020 09:13:55 08/23/2008/24/2020 CMP, serum or plasm a creatinine 0.65 mg/dL 0.57-1 .00 Not Available [facility] ([facility]) [address] [facility] [place], [address], 08/24/2020 09:13:55 08/23/2008/24/2020 CMP, serum or plasm a eGFR if nonafricn AM 97 mL/mi n/1.7 3 >59 Not Available [facility] ([facility]) [address] [facility] [place], [address], 08/24/2020 09:13:55 08/23/2008/24/2020 CMP, serum or plasm a eGFR if africn AM 112 mL/mi n/1.7 3 >59 Not Available [facility] ([facility]) [address] [facility] [place], [address], 08/24/2020 09:13:55 08/23/2008/24/2020 CMP, serum or plasm a BUN/creatini ne ratio 23 9-23 Not Available [facility] ([facility]) [address] [place], [address], 08/24/2020 09:13:55 08/23/2008/24/2020 CMP, serum or plasm a sodium 140 mmol/ L 134-14 4 Not Available [facility] ([facility]) [address] [place], [address], 08/24/2020 09:13:55 08/23/2008/24/2020 CMP, serum or plasm a potassium 5.3 mmol/ L 3.5-5. 2 above high normal Not Available [facility] ([facility]) [address] [place], [address], 08/24/2020 09:13:55 08/23/2008/24/2020 CMP, serum or plasm a chloride 98 mmol/ L 96-106 Not Available [facility] ([facility]) [address] [place], [address], 08/24/2020 09:13:55 08/23/2008/24/2020 CMP, serum or plasm a carbon dioxide, total 25 mmol/ L 20-29 Not Available [facility] ([facility]) [address] [place], [address], 08/24/2020 09:13:55 08/23/2008/24/2020 CMP, serum or plasm a calcium 9.8 mg/dL 8.7-10 .2 Not Available [facility] ([facility]) [address] [place], [address], 08/24/2020 09:13:55 08/23/2008/24/2020 CMP, serum or plasm a protein, total 7.2 g/dL 6.0-8. 5 Not Available [facility] ([facility]) [address] [place], [address], 08/24/2020 09:13:55 08/23/2008/24/2020 CMP, serum or plasm a albumin 4.3 g/dL 3.8-4. 9 Not Available [facility] ([facility]) [address] [facility] [place], [address], 08/24/2020 09:13:55 08/23/2008/24/2020 CMP, serum or plasm a globulin, total 2.9 g/dL 1.5-4. 5 Not Available [facility] ([facility]) [address] [facility] [place], [address], 08/24/2020 09:13:55 08/23/2008/24/2020 CMP, serum or plasm a A/G ratio 1.5 1.2-2. 2 Not Available [facility] ([facility]) [address] [place], [address], 08/24/2020 09:13:55 08/23/2008/24/2020 CMP, serum or plasm a bilirubin, total 0.4 mg/dL 0.0-1. 2 Not Available [facility] ([facility]) [address] [facility] [place], [address], 08/24/2020 09:13:55 08/23/2008/24/2020 CMP, serum or plasm a alkaline phosphatase 117 IU/L 39-117 Not Available [facility] ([facility]) [address] [place], [address], 08/24/2020 09:13:55 08/23/2008/24/2020 CMP, serum or plasm a AST (SGOT) 12 IU/L 0-40 Not Available [facility] ([facility]) [address] [place] [place], [address], 08/24/2020 09:13:55 08/23/2008/24/2020 CMP, serum or plasm a ALT (SGPT) 12 IU/L 0-32 Not Available [facility] ([facility]) [address] [facility], [place], [address], 08/24/2020 09:13:55 08/23/2008/24/2020 lipid panel , serum cholesterol, total 178 mg/dL 100-19 9 Not Available [facility] ([facility]) [address] [facility], [place], [address], 08/24/2020 09:13:56 08/23/2008/24/2020 lipid panel , serum triglyceride s 289 mg/dL 0-149 above high normal Not Available [facility] ([facility]) [address] [facility], [place], [address], 08/24/2020 09:13:56 08/23/2008/24/2020 lipid panel , serum HDL cholesterol 36 mg/dL >39 below low normal Not Available [facility] ([facility]) [address] [facility], [place], [address], 08/24/2020 09:13:56 08/23/2008/24/2020 lipid panel , serum VLDL cholesterol toño 49 mg/dL 5-40 above high normal Not Available [facility] ([facility]) [address] [facility], [place], [address], 08/24/2020 09:13:56 08/23/2008/24/2020 lipid panel , serum LDL chol calc ([facility]) 93 mg/dL 0-99 Not Available [facility] ([facility]) [address] [facility], [place], [address], 08/24/2020 09:13:56 08/23/2008/24/2020 lipid panel , serum comment: ADDICTIONS THERAPIST Not Available [facility] ([facility]) [address] [facility], [place], [address], 08/24/2020 09:13:56 08/23/2008/24/2020 HbA1c (hemo globi n A1c), blood hemoglobin A1C 10.0 % 4.8-5. 6 above high normal Predi abete s: 5.7 - 6.4 Diabe roxann: >6.4 Glyce moose contr ol for adult s with diabe roxann: <7.0 Not Available [facility] ([facility]) [address] [facility], [place], [address], 08/24/2020 09:13:56 08/23/2008/24/2020 diabe roxann patie nt educa tion pdf . Not Available [facility] ([facility]) [address] [facility], [place], [address], 08/24/2020 09:13:57 08/23/2008/25/2020 cultu re, urine urine culture, routine Final report abnormal Not Available [facility] ([facility]) [address] [facility], [place], [address], 08/25/2020 06:11:39 08/23/2008/25/2020 cultu re, urine result 1 Commen t abnormal Beta hemol ytic Strep tococ cus, group B Great er than 100,0 00 colon y formi ng units per mL Penic illin and ampic illin are drugs of choic e for treat ment of beta- hemol ytic strep tococ toño infec tions . Susce ptibi lity testi ng of penic illin s and other beta- lacta m agent s appro kareen by the FDA for treat ment of beta- hemol ytic strep tococ toño infec tions need not be perfo rmed routi claire becau se nonsu scept ible isola roxann are extre sully rare in any beta- hemol ytic strep tococ cus and have not been repor brian for Strep tococ cus pyoge jessica (grou p A). (CLSI ) Not Available [facility] ([facility]) [address] [facility], [place], [address], 08/25/2020 06:11:39 08/23/2008/26/2020 bacte rial vagin osis + vagin itis panel , vagin al atopobium vaginae Low - 0 score Not Available [facility] ([facility]) [address] [facility], [place], [address], 08/30/2020 06:10:56 08/23/2008/26/2020 bacte rial vagin osis + vagin itis panel , vagin al bvab 2 Low - 0 score Not Available [facility] ([facility]) [address] [facility], [place], [address], 08/30/2020 06:10:56 08/23/2008/26/2020 bacte rial vagin osis + vagin itis panel , vagin al megasphaera 1 Low - 0 score Calcu late total score by austin gary the 3 indiv idual bacte rial vagin osis (BV) marke r score s toget her. Total score is inter prete d as follo ws: Total score 0-1: Indic ates the absen ce of BV. Total score 2: Indet ermin ate for BV. Addit ional clini toño data shoul d be evalu ated to estab angella a diagn osis. Total score 3-6: Indic ates the prese nce of BV. This test was devel oped and its perfo rmanc e marietta cteri stics deter mined by [employer]. It has not been clear ed or appro kareen by the Food and Drug Admin istra tion. The FDA has deter mined that such clear ance or appro annette is not neces rodríguez. Not Available [facility] ([facility]) [address] [facility], [place], [address], 08/30/2020 06:10:56 08/23/2008/26/2020 bacte rial vagin osis + vagin itis panel , vagin al trich vag by FRANCISCA Positi ve negati ve abnormal Not Available [facility] ([facility]) [address] [facility], [place], [address], 08/30/2020 06:10:56 08/23/2008/26/2020 bacte rial vagin osis + vagin itis panel , vagin al chlamydia trachomatis, FRANCISCA Negati ve negati ve Not Available [facility] ([facility]) [address] [facility], [place], [address], 08/30/2020 06:10:56 08/23/2008/26/2020 bacte rial vagin osis + vagin itis panel , vagin al neisseria gonorrhoeae, FRANCISCA Negati ve negati ve Not Available [facility] ([facility]) [address] [facility], [place], [address], 08/30/2020 06:10:56 08/23/2008/30/2020 bacte rial vagin osis + vagin itis panel , vagin al derrek albicans, FRANCISCA Negati ve negati ve Not Available [facility] ([facility]) [address] [facility], [place], [address], 08/30/2020 06:10:56 08/23/2008/30/2020 bacte rial vagin osis + vagin itis panel , vagin al derrek glabrata, FRANCISCA Positi ve negati ve abnormal Publi shed data demon strat e that up to 65% of Paula da glabr isaac ident ified in cases of vagin al paula diasi s have decre ased susce ptibi lity to fluco nazol e. Not Available [facility] ([facility]) [address] [facility], [place], [address], 08/30/2020 06:10:56 08/23/2008/23/2020 HbA1c (hemo globi n A1c), blood HbA1c 10.6 Not Available In-Office Order Internal Use Only DO Not Attach Compendium DO Not Attach Compendium, Do Not Delete/merge, [id number] 08/23/2020 12:59:57 08/23/2008/23/2020 urina lysis , dipst ick Leukocytes Trace Not Available In-Offi ce Order Internal Use Only DO Not Attach Compendium DO Not Attach Compendium, Do Not Delete/merge, [id number] 08/23/2020 12:09:06 08/23/20 20 08/23/2020 urina lysis , dipst ick Nitrite negati ve Not Available In-Office Order Internal Use Only DO Not Attach Compendium DO Not Attach Compendium, Do Not Delete/merge, [id number] 08/23/2020 12:09:06 08/23/20 20 08/23/2020 urina lysis , dipst ick Urobilinogen .2 Not Available In-Of fice Order Internal Use Only DO Not Attach Compendium DO Not Attach Compendium, Do Not Delete/merge, [id number] 08/23/2020 12:09:06 08/23/20 20 08/23/2020 urina lysis , dipst ick Protein Negati ve Not Available In-Office Order Internal Use Only DO Not Attach Compendium DO Not Attach Compendium, Do Not Delete/merge, [id number] 08/23/2020 12:09:06 08/23/20 20 08/23/2020 urina lysis , dipst ick pH 5.5 Not Available In-Office Order Internal Use Only DO Not Attach Compendium DO Not Attach Compendium, Do Not Delete/merge, [id number] 08/23/2020 12:09:06 08/23/20 20 08/23/2020 urina lysis , dipst ick Blood Non-He molyze d: Trace Not Available In-Office Order Internal Use Only DO Not Attach Compendium DO Not Attach Compendium, Do Not Delete/merge, [id number] 08/23/2020 12:09:06 08/23/20 20 08/23/2020 urina lysis , dipst ick Specific [place] 1.010 Not Available In-Off ice Order Internal Use Only DO Not Attach Compendium DO Not Attach Compendium, Do Not Delete/merge, [id number] 08/23/2020 12:09:06 08/23/20 20 08/23/2020 urina lysis , dipst ick Ketone Negati ve Not Available In-Office Order Internal Use Only DO Not Attach Compendium DO Not Attach Compendium, Do Not Delete/merge, [id number] 08/23/2020 12:09:06 08/23/20 20 08/23/2020 urina lysis , dipst ick Bilirubin Negati ve Not Available In-Office Order Internal Use Only DO Not Attach Compendium DO Not Attach Compendium, Do Not Delete/merge, [id number] 08/23/2020 12:09:06 08/23/20 20 08/23/2020 urina lysis , dipst ick Glucose 1000 Not Available In-Office Order Internal Use Only DO Not Attach Compendium DO Not Attach Compendium, Do Not Delete/merge, [id number] 08/23/2020 12:09:06 08/23/20 20 08/23/2020 urina lysis , dipst ick Appearance Slight ly Cloudy Not Available In-Office Order Internal Use Only DO Not Attach Compendium DO Not Attach Compendium, Do Not Delete/merge, [id number] 08/23/2020 12:09:06 08/23/20 20 08/23/2020 urina lysis , dipst ick Color Dark Yellow Not Available In-Office Order Internal Use Only DO Not Attach Compendium DO Not Attach Compendium, Do Not Delete/merge, [id number] 08/23/2020 12:09:06 04/22/20 21 04/22/2021 XR, chest No observ ation record ed. [address] ([facility]) [address] [place], [address], 04/23/2021 10:37:42 04/23/20 21 04/22/2021 CT, abdom en + pelvi s, w/o contr ast No observ ation record ed. [address] ([facility]) [address] [place], [address], 04/23/2021 10:38:00 04/24/20 21 04/24/2021 XR, abdom en No observ ation record ed. [address] ([facility]) [address] [place], [address], 04/24/2021 17:41:42 04/26/20 21 04/26/2021 CT, head, w/o contr ast No observ ation record ed. [address] ([facility]) [address] [place], [address], 04/30/2021 12:40:26 04/27/20 21 04/26/2021 XR, abdom en No observ ation record ed. [address] ([facility]) [address] [place], [address], 04/30/2021 12:40:13 04/27/20 21 04/26/2021 XR, chest No observ ation record ed. [address] ([facility]) [address] [place], [address], 04/30/2021 12:39:54 05/04/20 21 05/04/2021 US, abdom en No observ ation record ed. [address] ([facility]) [address] [place], [address], 05/07/2021 10:45:06 03/17/20 24 02/28/2024 home sleep study No observ ation record ed. [facility] [address], [place], [address], 03/26/2024 16:40:47 Result Notes None recorded. Problems Name Problem SNOMED Code Status Onset Date Resolution Date Notes Provider Name and Address Organization Details Recorded Time Urge incontinence of urine 29375363 Active 2018 ISAEL FERNANDEZ Attn: Catarina gary,[address] 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 578867860 Active Nohemi Rom[place] [facility] 8 11:36:14 Osteoarthritis 958974442 Active [place] Rom[place] [facility] 8 11:36:14 Restless legs 03840163 Active [place]i Rom[place] [facility] 8 11:36:14 Migraine 28409985 Active Nohemi Rom[place] [facility] 8 11:36:14 Tobacco dependence syndrome 59130755 Active [place]hemi Rom[place] [facility] 8 11:36:14 Edema of lower extremity 919050902 Active Nohemi Rom[place] [facility] 8 11:36:14 Anxiety 57497628 Active Nohemi Rom[place] [facility] 8 11:36:14 Bladder muscle dysfunction - overactive Active Nohemi Rom[place] [facility] 8 11:36:14 Hyperlipidemia 78509741 Active Preethi Bob[place] [facility] 6 18:04:13 Hypertensive disorder 40508931 Active Preethi Bob[place] [facility] 6 18:04:13 Restlessness 495933580 Active Nohemi Rom[place] [facility] 8 11:36:14 Chronic anxiety 740582379 Active Nohemi Rom[place] [facility] 8 11:36:14 Problem Notes None recorded. Procedures Surgical History Date Name Laterality Status Provider Name and Address Organization Details Recorded Time 018 partial hysterectomy completed Sarina Lucio [place] 09/07/2018 10:46:53 018 Colposcopy completed Violeta Garcia MD Attn: Accounting,[address] [place], [address], [facility] 02/11/2018 18:43:20 018 Endometrial Biopsy completed Violeta Garcia MD Attn: Accounting,[address] [place], [address], [place] [facility] 02/11/2018 18:42:01 018 Date of Last Pap Smear completed Carlos Howell [place] [facility] 07/08/2019 11:49:53 018 Most Recent Mammogram completed Sarina Lucio [place] [facility] 09/07/2018 10:48:53 016 Heart Surgery completed Elly Orozco [place] 10/29/2016 16:34:46 991 Cholecystectomy completed Elly Orozco [place] 10/29/2016 16:32:59 Imaging Results Imaging Date Name Status LastModified by Organiz ation Details LastModified Time 04/22/2021 XR, chest completed [address] ([facility]) [address] [place], [address], 04/23/2021 10:37:42 04/22/2021 CT, abdomen + pelvis, w/o contrast completed [address] ([facility]) [address] [place], [address], 04/23/2021 10:38:00 04/24/2021 XR, abdomen completed [address] ([facility]) [address] [place], [address], 04/24/2021 17:41:42 04/26/2021 CT, head, w/o contrast completed [address] ([facility]) [address] [place], [address], 04/30/2021 12:40:26 04/26/2021 XR, abdomen completed [address] ([facility]) [address] [place], [address], 04/30/2021 12:40:13 04/26/2021 XR, chest completed [address] ([facility]) [address] [place], [address], 04/30/2021 12:39:54 05/04/2021 US, abdomen completed [email or web address] [place] [facility] ([facility]) [address], [place], [address], 05/07/2021 10:45:06 02/28/2024 home sleep study completed [facility] [address], [place], [address], 03/26/2024 16:40:47 Procedure Notes None recorded. Medical Equipment None Reported. Allergies Allergen ID Allergen Name Allergen Category Reaction Reaction Severity Criticality Documentation Date Start Date Code Code System Note Provider Name and Address Organization Details Recorded Time [id number] codeine medicatio n anaphylax is severe Not available 04/14/2015 2670 RxNorm Not Available Not Available Not Available [id number] aspirin medicatio n nausea severe Not available 04/14/2015 1191 RxNorm stoma ch pain Not Available Not Available Not Available [id number] morphine medicatio n anaphylax is severe Not available 04/14/2015 7052 RxNorm Not Available Not Available Not Available [id number] Brilinta medicatio n anaphylax is severe Not available 10/29/20162015 14885 36 RxNorm Not Available Not Available Not Available Medications Name Sig Start Date Stop Date Status Note LastModified by Organization Details LastModified Time Prescriptio n - Prior Authorizati on Request active Not Available Not Available N ot Available amoxicillin 500 mg capsule active Not Available Not Available Not Available furosemide 40 mg tablet TAKE 1 TABLET BY MOUTH DAILY NEEDED active Not Available Not Available No t Available latanoprost 0.005 % eye drops active Not Available Not Available Not Available Humalog Mix 75-25 (U-100) Insulin 100 unit/mL subcutaneou s suspension INJECT 20 UNITS EVERY DAY BY SUBCUTANE OUS ROUTE FOR 30 DAYS active Not Available Not Available No t Available fluconazole 100 mg tablet TAKE 1 TABLET BY MOUTH EVERY DAY FOR 2 DAYS DIRECTED active Not Available Not Available No t Available atorvastati n 40 mg tablet TAKE 1 TABLET BY MOUTH EVERY DAY active Not Available Not Available No t Available metformin 500 mg tablet TAKE 1 TABLET BY MOUTH TWICE DAILY active Not Available Not Available No t Available Qvar 80 mcg/actuati on Metered Aerosol oral inhaler INHALE 2 PUFFS TWICE DAILY DIRECTED 07/04 completed Not Available Not Available Not Available primidone 50 mg tablet TAKE 1 TABLET BY MOUTH EVERY DAY active Not Available Not Available No t Available atorvastati n 80 mg tablet Take 1 tablet every day by oral route at bedtime for 30 days. active Not Available Not Available No t Available nystatin 100,000 unit/mL oral suspension SHAKE LIQUID AND TAKE 5 ML BY MOUTH FOUR TIMES DAILY FOR 7 DAYS DIRECTED 08/23 completed Not Available Not Available Not Available carvedilol 6.25 mg tablet Take 1 tablet twice a day by oral route as directed for 30 days. active Not Available Not Available No t Available venlafaxine ER 75 mg capsule,ext ended release 24 hr TAKE 1 CAPSULE BY MOUTH EVERY DAY active Not Available Not Available No t Available gabapentin 600 mg tablet TAKE 1 TABLET BY MOUTH THREE TIMES DAILY DIRECTED FOR 30 DAYS, DISCONTIN UE GABAPENTI N 300 MG 08/23 completed Not Available Not Available Not Available nicotine 14 mg/24 hr daily transdermal patch Apply 1 patch every 24 hours by transderm al route for 28 days. 01/05 completed Not Available Not Available Not Available clindamycin HCl 300 mg capsule TAKE 1 CAPSULE BY MOUTH EVERY 6 HOURS AFTER MEALS FOR 5 DAYS active Not Available Not Available No t Available albuterol sulfate 2.5 mg/3 mL (0.083 %) solution for nebulizatio n USE 3 ML VIA NEBULIZER THREE TIMES DAILY DIRECTED active Not Available Not Available No t Available citalopram 40 mg tablet TAKE 1 TABLET BY MOUTH DAILY NEEDED active Not Available Not Available No t Available azithromyci n 250 mg tablet TAKE 2 TABLETS BY MOUTH ON DAY 1, THEN TAKE 1 TABLET BY MOUTH DAILY FOR 4 DAYS active Not Available Not Available No t Available sulfamethox azole 400 mg-trimetho prim 80 mg tablet 09/08 completed Not Available Not Available Not Available hydrocodone 5 mg-acetamin ophen 325 mg tablet TAKE 1 TABLET BY MOUTH EVERY 4 HOURS NEEDED active Not Available Not Available No t Available ondansetron HCl 8 mg tablet TAKE 1 TABLET BY MOUTH EVERY 8 HOURS FOR 3 DAYS NEEDED 08/23 completed Not Available Not Available Not Available meloxicam 15 mg tablet TAKE 1 TABLET BY MOUTH EVERY DAY active Not Available Not Available No t Available sumatriptan 25 mg tablet TAKE 1 TABLET BY MOUTH EVERY DAY 01/05 completed Not Available Not Available Not Available lisinopril 20 mg tablet TAKE 1 TABLET BY MOUTH DAILY active Not Available Not Available No t Available isosorbide mononitrate ER 30 mg tablet,exte nded release 24 hr TAKE 1 TABLET BY MOUTH EVERY DAY DIRECTED active Not Available Not Available No t Available ropinirole 3 mg tablet TAKE 1 TABLET BY MOUTH EVERY DAY active Not Available Not Available No t Available terconazole 0.8 % vaginal cream INSERT ONE APPLICATO RFUL VAGINALLY AT BEDTIME FOR 3 NIGHTS 09/08 completed Not Available Not Available Not Available lidocaine 4 % topical cream Apply 1 applicati on 4 times a day by topical route as directed for 30 days. 08/23 completed Not Available Not Available Not Available Lantus U-100 Insulin 100 unit/mL subcutaneou s solution ADMINISTE R 20 UNITS UNDER THE SKIN TWICE DAILY 06/04 completed Not Available Not Available Not Available Diflucan 150 mg tablet Take 1 tablet(s) every 72 hours by oral route as directed for 6 days. active Not Available Not Available No t Available sumatriptan 50 mg tablet TAKE 1 TABLET AT ONSET ON OF HEADACHE MAY REPEAT IN 2 HOURS IF NEEDED NOT TO EXCEED 2 TABLETS IN 24 HOURS active Not Available Not Available No t Available metronidazo le 500 mg tablet TAKE 1 TABLET BY MOUTH TWICE DAILY FOR 7 DAYS DIRECTED active Not Available Not Available No t Available lidocaine HCl 2 % mucosal jelly Take 1 applicati on 5 times a day by mucous route as needed for 7 days. active Not Available Not Available No t Available clopidogrel 75 mg tablet 07/04 completed Not Available Not Available Not Available sulfamethox azole 800 mg-trimetho prim 160 mg tablet TAKE 1 TABLET BY MOUTH EVERY 12 HOURS FOR 3 DAYS active Not Available Not Available No t Available aspirin 81 mg tablet,meera yed release TAKE ONE TABLET DAILY TO PREVENT BLOOD CLOTS active Not Available Not Available No t Available tramadol 50 mg tablet 08/23 completed Not Available Not Available Not Available triamcinolo ne acetonide 0.1 % topical cream active Not Available Not Available Not Available amoxicillin 500 mg tablet Take 1 tablet every 8 hours by oral route as directed for 5 days. 2019 active Not Available Not Available Not Avai lable ondansetron 8 mg disintegrat ing tablet Place 1 tablet every 8 hours by transling ual route as directed for 2 days. 09/08 completed Not Available Not Available Not Available ketorolac 10 mg tablet Take 1 tablet every 6 hours by oral route as needed for 5 days. 06/13 completed Not Available Not Available Not Available nystatin-tr iamcinolone 100,000 unit/gram-0 .1 % topical ointment active Not Available Not Available Not Available nortriptyli ne 25 mg capsule TAKE 1 CAPSULE BY MOUTH THREE TIMES DAILY active Not Available Not Available No t Available oxycodone-a cetaminophe n 5 mg-325 mg tablet 06/04 completed Not Available Not Available Not Available DOK 100 mg capsule Take 1 capsule as needed by oral route in the morning for 30 days. active Not Available Not Available No t Available gabapentin 800 mg tablet TAKE 1 TABLET BY MOUTH THREE TIMES DAILY DIRECTED 2021 active Not Available Not Available Not Avai lable nicotine (polacrilex ) 4 mg gum active Not Available Not Available N ot Available phenazopyri dine 100 mg tablet 08/23 completed Not Available Not Available Not Available hydrocodone 7.5 mg-acetamin ophen 325 mg tablet active Not Available Not Available No t Available ropinirole 2 mg tablet TAKE 1 TABLET BY MOUTH DAILY NEEDED 01/05 completed Not Available Not Available Not Available cephalexin 500 mg capsule 09/17 completed Not Available Not Available Not Available nystatin 100,000 unit/gram topical cream APPLY TO THE AFFECTED AREA(S) BY TOPICAL ROUTE 2 TIMES PER DAY active Not Available Not Available No t Available nicotine 21 mg/24 hr daily transdermal patch APPLY 1 PATCH TO SKIN AND CHANGE EVERY DAY active Not Available Not Available No t Available lisinopril 30 mg tablet TAKE 1 TABLET BY MOUTH EVERY DAY active Not Available Not Available No t Available oxybutynin chloride ER 5 mg tablet,exte nded release 24 hr Take 1 tablet every day by oral route as directed. active Not Available Not Available No t Available gabapentin 300 mg capsule TAKE 1 CAPSULE BY MOUTH THREE TIMES DAILY WITH MEALS 06/04 completed Not Available Not Available Not Available Replens vaginal gel Insert 1 g twice a day by vaginal route. 08/23 completed Not Available Not Available Not Available alcohol swabs active Not Available Not Available Not Available pravastatin 20 mg tablet TAKE 1 TABLET BY MOUTH AT BEDTIME active Not Available Not Available No t Available lisinopril 5 mg tablet 01/05 completed Not Available Not Available Not Available hydrochloro thiazide 25 mg tablet active Not Available Not Available No t Available mupirocin 2 % topical ointment active Not Available Not Available Not Available ergocalcife rol (vitamin D2) 1,250 mcg (50,000 unit) capsule TAKE 1 CAPSULE BY MOUTH WEEKLY active Not Available Not Available No t Available ibuprofen 600 mg tablet 09/08 completed Not Available Not Available Not Available albuterol sulfate HFA 90 mcg/actuati on aerosol inhaler Inhale 2 puff(s) every 4 hours by inhalatio n route as needed for 30 days. active Not Available Not Available No t Available ketoconazol e 2 % topical cream APPLY EXTERNALL Y TO THE AFFECTED AREA TWICE DAILY 08/23 completed Not Available Not Available Not Available oxybutynin chloride 5 mg tablet TAKE 1 TABLET BY MOUTH EVERY DAY active Not Available Not Available No t Available ondansetron 4 mg disintegrat ing tablet DISSOLVE 1 TABLET UNDER THE TONGUE EVERY 6 HOURS NEEDED active Not Available Not Available No t Available clotrimazol e 1 % topical cream APPLY TO THE AFFECTED AREA TWICE DAILY 08/23 completed Not Available Not Available Not Available naproxen 500 mg tablet TAKE 1 TABLET BY MOUTH THREE TIMES DAILY AFTER MEALS active Not Available Not Available No t Available amoxicillin 875 mg-potassiu m clavulanate 125 mg tablet TAKE 1 TABLET BY MOUTH EVERY 12 HOURS FOR 14 DAYS active Not Available Not Available No t Available amoxicillin 500 mg-potassiu m clavulanate 125 mg tablet Take 1 tablet every 12 hours by oral route after meals for 10 days. 09/08 completed Not Available Not Available Not Available nicotine 7 mg/24 hr daily transdermal patch Apply 1 patch every 24 hours by transderm al route for 28 days. 01/05 completed Not Available Not Available Not Available insulin lispro (U-100) 100 unit/mL subcutaneou s pen USE PER MD SLIDING SCALE PROTOCOL. 2 PENS MUST LAST 90 DAYS active Not Available Not Available No t Available nicotine (polacrilex ) 4 mg buccal lozenge Take 1 tablet every 2 hours by oral route as directed for 30 days. 08/23 completed Not Available Not Available Not Available nitrofurant oin monohydrate /macrocryst als 100 mg capsule TAKE 1 CAPSULE BY MOUTH EVERY 12 HOURS FOR 5 DAYS active Not Available Not Available No t Available [employer] Chamber active Not Available Not Available Not Available quetiapine 50 mg tablet TAKE 1 TABLET BY MOUTH AT BEDTIME active Not Available Not Available No t Available Symbicort 160 mcg-4.5 mcg/actuati on HFA aerosol inhaler INHALE 2 PUFFS TWICE DAILY active Not Available Not Available No t Available FeroSul 325 mg (65 mg iron) tablet TAKE 1 TABLET BY MOUTH TWICE DAILY active Not Available Not Available No t Available zinc oxide 40 % topical ointment Apply to the affected area as needed 2019 active Not Available Not Available Not Avai lable OneTouch Verio test strips TEST THREE TIMES DAILY active Not Available Not Available No t Available TRUEplus Insulin 0.5 mL 31 gauge x 5/16 syringe Use to administe r insulin sub-Q once daily. 08/23 completed Not Available Not Available Not Available Trulicity 0.75 mg/0.5 mL subcutaneou s pen injector ADMINISTE R 0.75 MG UNDER THE SKIN EVERY WEEK AT DINNER active Not Available Not Available No t Available [employer] Verio Flex Meter active Not Available Not Available Not Available Basaglar KwikPen U-100 Insulin 100 unit/mL (3 mL) subcutaneou s INJECT 20 UNITS SUBCUTANE OUS EVERY MORNING AND 20 UNITS IN THE EVENING active Not Available Not Available No t Available TRUEplus Pen Needle 31 gauge x 5/16 USE TO ADMINISTE R INSULIN UNDER SKIN DAILY active Not Available Not Available No t Available TRUEplus Pen Needle 31 gauge x 3/16 USE TO DOSE BASAGLAR TWICE DAILY 2021 active Not Available Not Available Not Avai lable fluticasone 232 mcg-salmete rol 14 mcg/actuati on breath activated powdr INHALE 2 PUFFS BY MOUTH TWICE DAILY NEEDED active Not Available Not Available No t Available OneTouch Delica Plus Lancet 30 gauge TEST THREE TIMES DAILY active Not Available Not Available No t Available Vitals Date Recorded Body height Provider Name an d Address Organization Details Last Updated DateTime 08/10/2020 160.02 cm Angela JENI Grewal [facility] 08/10/20 20 15:39:02 Date Recorded Body mass index (BMI) Body weight Provider Name and Address Organization Details Last Updated DateTime 08/10/2020 64.1 kg/m2 566012.44 [email or web address] Sarina Lucio [place] [facility] 08/10/2020 15:48:40 Date Recorded Body height Provider Name an d Address Organization Details Last Updated DateTime 08/23/2020 160.02 cm Josycesar Mcmullen [place] [facility] 2019 11:47:08 Date Recorded Body mass index (BMI) Body weight Provider Name and Address Organization Details Last Updated DateTime 08/23/2020 61.8 kg/m2 367445.33 g Josy Mcmullen MA [facility] 08/23/2020 11:47:20 Date Recorded Heart rate Provider Name an d Address Organization Details Last Updated DateTime 08/23/2020 93 /min Josy Mcmullen [place] [facility] 2019 11:47:41 Date Recorded Body temperature Provider Name a nd Address Organization Details Last Updated DateTime 08/23/2020 98.9 [degF] Josy Mcmullen [place] [facility] 08/23/2020 11:47:49 Date Recorded Oxygen saturation Oxygen saturation in Arterial blood by Pulse oximetry Provider Name and Address Organization Details Last Updated DateTime 08/23/2020 97 % 97 % Josy Mcmullen MA [facility] 08/23/2020 11:47:56 Date Recorded Body height Provider Name an d Address Organization Details Last Updated DateTime 09/27/2020 160.02 cm Sarina Lucio [place] [facility] 0 14:49:34 Date Recorded Body mass index (BMI) Body weight Provider Name and Address Organization Details Last Updated DateTime 09/27/2020 61.6 kg/m2 238198.14 abdirahman Lucio [place] [facility] 09/27/2020 14:57:26 Date Recorded Body temperature Provider Name a nd Address Organization Details Last Updated DateTime 09/27/2020 98.3 [degF] Sarina Lucio MA [facility] 09/27/20 20 14:57:59 Date Recorded Oxygen saturation Oxygen saturation in Arterial blood by Pulse oximetry Provider Name and Address Organization Details Last Updated DateTime 09/27/2020 97 % 97 % Sarina Lucio MA [facility] 09/27/2020 14:58:46 Date Recorded Heart rate Provider Name an d Address Organization Details Last Updated DateTime 09/27/2020 85 /min Sarina Lucio MA [facility] 0 14:58:49 Date Recorded Systolic blood pressure Diastolic blood pressure Provider Name and Address Organization Details Last Updated DateTime 08/23/2020 120 mm[Hg] 80 mm[Hg] Josy Mcmullen MA [facility] 08/23/2020 11:47:36 Date Recorded Systolic blood pressure Diastolic blood pressure Provider Name and Address Organization Details Last Updated DateTime 09/27/2020 144 mm[Hg] 88 mm[Hg] Sarina Lucio MA [facility] 09/27/2020 15:00:09 Social History Question Answer Notes LastModified by Organizat ion Details LastModified Time Tobacco Smoking Status Current Every Day Smoker Javed Meza LPN [facility] 04/14/2015 10:53:10 Do You Have An Advance Directive? No Information not available 04/14/2015 What Is Your Level Of Alcohol Consumption? None Information not available 04/14/2015 Is Blood Transfusion Acceptable In An Emergency? Yes Information not available 10/29/2016 What Is Your Level Of Caffeine Consumption? Heavy Information not available 04/14/2015 How Much Tobacco Do You Chew? None Information not available 04/14/2015 Are You Currently Employed? No Information not available 04/14/2015 What Type Of Diet Are You Following? REGULAR Information not available 04/14/2015 Do You Or Have You Ever Used E-cigarettes Or Vape? Never Used Electronic Cigarettes Information not available 08/23/2020 Education 12 Information no t available 04/14/2015 Swimming/diving Yes Informati on not available 04/14/2015 Are There Any Guns Present In Your Home? No Information not available 04/14/2015 Hard Of Hearing Or Deaf In One Or Both Ears? No Information not available 04/14/2015 Legally Blind In One Or Both Eyes? No Information no t available 04/14/2015 Live Alone Or With Others? Alone Information not available 04/14/2015 What Was The Date Of Your Most Recent Tobacco Screening? 08/23/2020 Information not available 08/23/2020 How Many Children Do You Have? 3 Information not available 04/14/2015 Performs Monthly Self-breast Exam? Yes Information no t available 10/29/2016 Do You Use Protection During Sex? No Information not available 04/14/2015 What Is Your Relationship Status? Information not available 10/29/2016 Seat Belts Used Routinely No Information not available 04/14/2015 Are You Sexually Active? Yes Information not available 04/14/2015 Smoke Alarm In Home Yes Information not available 04/14/2015 At What Age Did You Start Smoking Tobacco? 41 Information not available 04/14/2015 Are You Passively Exposed To Smoke? Yes Information no t available 04/14/2015 Do You Or Have You Ever Used Smokeless Tobacco? Never Used Smokeless Tobacco Information not available 08/23/2020 How Much Tobacco Do You Smoke? 0.5 PPD Information not available 10/29/2016 General Stress Level High Information not available 04/14/2015 Do You Use Sunscreen Routinely? Yes Information not available 04/14/2015 On What Date Was Tobacco Cessation Counseling Provided? 08/23/2020 Information not available 08/23/2020 How Many Years Have You Smoked Tobacco? 35 [email or web address] Information not available 09/27/2020 Sex: Unknown Functional Status Question Answer Note LastModified by Organizat ion Details LastModified Time Are you able to care for yourself? No Information not available 04/14/2015 What is your exercise level? Occasional Information not available 04/14/2015 Mental Status None recorded. Family History Relationship Description Onset Age of this Age Resolved Age Notes LastModified by Organization Details LastModified Time Mother Diabetes mellitus [email or web address] Not available 2017 11:40:34 Mother Heart disease [email or web address] Not available 2017 11:40:47 Mother Hypertensive disorder [email or web address] Not available 2017 11:41:05 Father Heart disease [email or web address] Not available 2017 11:40:42 Father Hypertensive disorder [email or web address] Not available 2017 11:40:56 Medical History Condition Response Coronary Artery Disease N Blood Diseases N Kidney Cyst N Hyperthyroidism N Blood Transfusion N MRSA Y Blood disorders N Emphysema N COPD N Blood Clots N Depression Y Pneumonia N Peripheral Arterial Disease N Premature N Edema N TIA N Headaches/Migraines N Anxiety Disorder Y Obesity Y Infertility N Polyps N Acid Reflux (GERD) N Hematuria N Stroke N Neck Injury N Polio N Hospital Admission other than N Neurologic Disorder N Other Sleep Disorders N Rheumatoid Arthritis N Fibromyalgia N Abdominal Aortic Aneurysm Repair N Kidney Disease N Heart Conditions N Heart Disease/Heart Problems N Hospitalizations N Brain Tumors N Acne N Eating Disorder N Skin Problems N Constipation N Meningitis N Tuberculosis N Cerebral Palsy N Myocardial Infarction N Asthma N Substance Abuse N Peripheral Vascular Disease N Vertigo N Sleep Disorder N Cirrhosis N Pulmonary Embolism N Chicken Pox N Flomax Use Past or Present N Hematologic Disease N Anxiety/Depression Y Thyroid Disease N Colon Cancer N Glaucoma N Lung Disease N Developmental or Behavioral Disorders N Bipolar Y Pacemaker N Diverticulitis/Diverticulosis N Anesthesia Complications N Orthopedic Problems N Orthotics N Head Injury/Concussion N Congenital Anomalies N Lakhani Bite N Chronic Kidney Disease N Endometriosis N Liver Disease N Dialysis N Schizophrenia N Speech Delay N Chronic Obstructive Pulmonary Disease N Parkinson's Disease N Thyroid Problems N GI Problems N Developmental Delay N Anemia N Immune System Disorder N Multiple Sclerosis N Colon Polyps N Heart Attack (ME) N Diabetes Y Cardiomyopathy N Blood Transfusions N Heart Problems/Murmur Y Eye Trauma N Congestive Heart Failure (CHF) N Valvular Heart Disease N Hyperlipidemia Y Double Vision N Abuse/Domestic Violence N Hepatitis B N Lupus N Epilepsy/Seizures N Reflux/GERD N Aneurysm N Bronchitis N Heart Disease N Hypertension Y Pre-Eclampsia N Heart Failure N Other Y Gout N High Blood Pressure Y Atrial Fibrillation N Kidney Stones N Head Trauma/Injury N Congenital Heart Disease N Spine Problems N Gastrointestinal Disease N Lung Mass N Sinusitis N Obstructive Sleep Apnea N Muscle, Joint, or Bone Problems N Autoimmune disease N Vision or Eye Problems N Arthritis N Blood Clot N Cancer N Seasonal allergies N Leg or Foot Ulcers N Raynaud's Disease N Aortic Aneurysm N Arrhythmia N Headaches N Heart Problems Y [place] N Ear or Hearing Problems N Hyperparathyroidism N Migraines N Artificial Joints N Kidney or Bladder Problems N NSAID Use N Encephalitis N PTSD N Ulcers N Prostate Hypertrophy N Bleeding Disorder N AIDS/HIV N Urinary Tract Infection N Back Problems N Allergies N Atrial Flutter N GERD/Reflux N Hepatitis N Autism Spectrum Disorder (ASD) N Breast Cancer N Hernia N Hypothyroidism N Breast Problem Y Genitourinary Disease N Deep Vein Thrombosis N Varicose Veins N Cystic Fibrosis N Hearing Loss N Developmental Problems N Carotid Disease N Vitamin D Deficiency N ADHD N Bladder or Kidney Problems N High Cholesterol Y [place] N Valvular Abnormalities N Psychiatric/Mental Health Condition N Organ Transplant N Foot Deformity N Allergies/Hayfever N Dyslipidemia N Hyponatremia N Diabetic Eye Disease N Osteoporosis/Osteopenia N Back Pain N Proteinuria N Mental Illness N Neurological Problems N Ovarian Cancer N Bedwetting N Seizures/Epilepsy N Kidney Failure N Ocular trauma N Dementia N Diverticulitis N Sleep Apnea N Mental Problems N Warfarin Management N Osteoporosis N Gynecological History Statement/Question Response Abnormal Pap N Date of LMP STIs/STDs N HPV Vaccine N Most Recent Mammogram 01/19/2018 Age at Menarche 12 Current Control Method Hysterectom y Age at First Child 24 If Post Menopausal, Age at Menopause Sexually Active? Y Menses Monthly No Date of Last Pap Smear 02/04/2018 Sexual Problems? N LMP Unknown Desired Control Method None Obstetrics History GPAL:G 3 P 3 0 0 2 Type Value Multiple Births 0 Full Term 3 Induced 0 Spontaneous 0 Premature 0 Living 2 Ectopics 0 Total 3 Immunizations Vaccine Type Date Status Note Provider Nam e and Address Organization Details Recorded Time Influenza, split virus, quadrivalent, preservative 7 completed Not Available [facility] 12/04/2019 02:45:29 Influenza, split virus, quadrivalent, preservative 8 completed Not Available [facility] 12/04/2019 02:36:29 Past Encounters Encounter ID Performer Location Encounter Start Date Encounter Closed Date Diagnosis/Indication Diagnosis SNOMED-CT Code Diagnosis ICD10 Code Diagnosis Note [id number] ANGIE Fernandez ([employer] SECURITY OFFICER) [address] [place] [address] [phone] 0 04/14/2015 10:16:18 04/14/2015 12:57:29 Abscess of thigh 2939444 Healing, continue with clindamyci n. Hx of increasing ly freq recurrence s similar lesions. Labs pending from ER, prev reportedly MRSA. Advised bleach baths or chlorhexid ine soap, mupirocin oint 10 days. 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 147131439 Osteoarthritis 833793450 Restless legs 80859240 Migraine 87935664 Tobacco de pendence syndrome 48048897 Edema of l ower extremity 493445415 Anxiety 97261200 Bladder mu scle dysfunction - overactive 419680307 [id number] Lynda Morse is Jose (Adult Med) [address] [place] [address] [id number] 0 12/15/2015 16:16:26 12/15/2015 17:23:28 Type 2 diabetes mellitus 07026224 E11.40 Chronic ob structive pulmonary disease 01805142 J44.9 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 149538984 E11.42 Edema of l ower extremity 891189322 R60.0 Morbid obesity 746615691 E66.01 Osteoarthritis 541126714 M19.90 Power chair evaluation Tobacco de pendence syndrome 68655010 F17.290 Anxiety 99017961 F41.9 Hyperlipidemia 80080959 E78.5 Hypertensive disorder 38 626377 I10 Migraine 56985089 G43.90 9 Restlessness 688468570 R 45.1 Chronic anxiety 50456558 9 F41.9 [id number] MD Jose Mckeon (Adult Med) [address] [place] [address] [id number] 0 06/14/2016 16:27:56 06/14/2016 18:01:17 Type 2 diabetes mellitus 89153535 E11.40 Migraine 46331100 G43.90 9 Hypertensive disorder 38 019950 I10 Hyperlipidemia 59594516 E78.5 Edema of l ower extremity 457167027 R60.0 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 172943322 E11.42 Chronic ob structive pulmonary disease 54450749 J44.9 Chronic anxiety 22625930 9 F41.9 Osteoarthritis 205353584 M19.90 Power chair evaluation Restless legs 39781041 G 25.81 Tobacco de pendence syndrome 79627639 F17.691 [id number] JENI Porras ([employer] SECURITY OFFICER) [address] [place] [address] [id number] 0 10/29/2016 15:11:15 11/01/2016 12:55:26 Postmenopausal bleeding 71059562 N95.0 Skin lesion 86627897 L98 .9 Screening mammography 24 646183 Z12.31 Urinary tr act infectious disease 04889101 N39.0 HPV - Sophia n papillomavirus test positive 100980378 R87.820 [id number] MD Jose Mckeon (Adult Med) [address] [place] [address] [phone] 0 12/13/2016 09:51:53 12/13/2016 12:13:14 Diabetes mellitus 73629556 E11.59 Type 2 estevan betes mellitus 77735785 E11.40 Coronary atherosclerosis 697808218 I25.83 Morbid obesity 818437122 E66.01 Chronic ob structive pulmonary disease 36988829 J44.9 Hypertensive disorder 38 325752 I10 Tobacco de pendence syndrome 46189874 F17.290 Hyperlipidemia 99171627 E78.5 Anxiety 63498275 F41.9 Osteoarthritis 140633302 M19.90 Power chair evaluation Restless legs 91638404 G 25.81 Migraine 36189441 G43.90 9 Bladder mu scle dysfunction - overactive 221559905 N32.81 Depressive disorder 3548 9007 F32.9 Edema of l ower extremity 729779198 R60.0 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 Morbid obesity 781598564 E66.01 Diet, exercise and lose weight. Restless legs 09518117 G 25.81 Controlled symptoms by ropinirole . Migraine 29447697 G43.90 9 On sumatriota n. Hypertensive disorder 38 827926 I10 Well controll, low salt diet. Type 2 estevan betes mellitus 05482261 E11.40 Diabetic diet, keep the weight down. Hyperlipidemia 63367004 E78.5 Under the care of her cardiologi [facility] de pendence syndrome 22747209 F17.290 Edema of l ower extremity 908928278 R60.0 Low salt diet, so far she has no leg edema today,. will resume furosemide as a maintenanc charu mmeasures. Anxiety 04085744 F41.9 Duplicated . Restlessness 066080532 R 45.1 Error. Unsteady when walking 22 115270 R26.89 [id number] JENI Reddy (Adult Med) [address] [place] [address] [id number] 0 07/25/2017 10:52:31 07/25/2017 11:34:04 Administration of influenza vaccine 55486303 Z23 [id number] MD Jose Mckeon (Adult Med) [address] [place] [address] [phone] 0 01/05/2018 11:04:25 01/05/2018 12:31:20 Nausea present 275209641 R11.0 Nicotine dependence 5629 4008 F17.200 Degenerati ve joint disease involving multiple joints 876500244 M15.9 Edema of l ower extremity 949314503 R60.0 Low salt diet, so far she has no leg edema today,. will resume furosemide as a maintenanc charu mmeasures. Chronic ob structive pulmonary disease 22262442 J44.9 Chronic anxiety 42869204 9 F41.9 Bladder mu scle dysfunction - overactive 023394168 N32.81 Stable. Morbid obesity 534611055 E66.01 Diet, exercise and lose weight. Restless legs 12630884 G 25.81 Controlled symptoms by ropinirole . Migraine 82287105 G43.90 9 On sumatripta n. Hypertensive disorder 38 054896 I10 Well controll, low salt diet. Osteoarthritis 979071164 M19.90 Power chair evaluation Type 2 estevan jose ramones mellitus 43572130 E11.40 Diabetic diet, keep the weight down. Hyperlipidemia 98312610 E78.5 Under the care of her cardiologi st. Whitaker ne uropathy due to diabetes mellitus 813133143 E11.42 [id number] MD Jose Alvarez ([employer]AR[employer] SECURITY OFFICER) [address] [place] [address] [phone] 0 02/04/2018 11:19:44 02/04/2018 13:04:19 Gynecologic examination 49525909 Z01.411 Age appropriat e counseling done. Screening mammography 24 775767 Z12.31 Venereal d isease screening 397749857 Z11.3 Patient refused blood work. Postmenopa usal bleeding 28722760 N95.0 Counseled about causes, risks of it. offered endometria l biopsy and counseled about procedure. Risks, benefits and indication s for endometria l biopsy procedure fully reviewed. Patient verbalized understand ing and she agrees for it. she wanted to come back for it. Advised to take pain medication like tylenol 1-2 hrs before she come in for endometria l biopsy.Als o counseled about importance of doing transvagin al ultrasound .Hemoglobi n on 18 - 16.6 Morbid obesity 114632687 E66.01 Counseled About weight loss, diet and excercise. 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 Counseled about HPV and safe sex. PAP done today. Positive s creening for depression on PHQ-9 (Patient Health Questionnaire 9) 0616295547 23658 Z13.89 Advised patient to f/u with psychiatri st. Candidiasis of skin 4988 3006 B37.2 under her lower abdominal fold. Counseled about it. Mixed urin mary incontinence 957473894 N39.46 Counseled about it and kegel and bladder training exercises. Also counseled about oxybutynin and its benefits and side effects of it. Dyspareunia 57320006 N94 .10 Counseled about if and different causes. Cystocele 297689171 N81. 10 Counseled about it and kegel exercises. Urogyn consult. Herniation of rectum into vagina 145449191 N81.6 Counseled about it and kegel exercises. Urogyn consult. Abnormal u terine bleeding 5790858931 9100 N93.9 [id number] ANGIE Fernandez (UNARMED SECURITY OFFICER) [address] [place] [address] [phone] 0 02/11/2018 15:33:20 02/11/2018 17:41:10 Postmenopausal bleeding 09248099 N95.0 High grade squamous intraepithelial lesion on cervical Papanicolaou smear 4093706463 9107 R87.613 Counseled thoroughly about HGSIL and HPV. Safe sex counseling done. Counseled about colposcopy , cervical biopsy and ECC. Counseled about the procedure and its risks including infection, bleeding, damage to internal organs, indicated procedures . Patient verbalized understand ing. Consent signed which is in chart. Advised patient to go to ER if bleeding more than a pad per hour, fever > 100.4, and severe pain. Refer to procedure note. Secondary to HGSIL Offered LEEP and counseled about LEEP. Patient refused LEEP. She wanted hysterecto my. Explained patient because of multiple comorbid conditions that she need to get hysterecto my at teritiary care with [facility] . Also advised patient to get medical clearance from PCP, Cardiologi st and diabetic physician. [id number] MD Jose Alvarez (UNARMED SECURITY OFFICER) [address] [place] [address] [phone] 0 02/23/2018 14:32:19 02/23/2018 17:00:41 Complex atypical endometrial hyperplasia 208461537 N85.02 d/w patient endometria l biopsy report. Counseled about it thoroughly . Patient already decided on hysterecto my. Advised patient that she need D & C before hysterecto my to be done by [facility] oncologist . Family his tory of breast cancer 684946803 Z80.3 Offered genetic testing and counsellin g referral. Patient refused. Atypical g landular cells on vaginal Papanicolaou smear 085274866 R87.629 d/w patient pathology repost of cervical biopsies and ECC. D/W patient about AGC and concern of neoplasm. Counseled thoroughly about it. Patient referred to [facility] . Notified nurse Javed to make an appointmen t with [facility] oncologist LAURA. Also gave patient number for [facility] . Mixed urin mary incontinence 715408184 N39.46 Counseled about it and kegel and bladder training exercises. She say her symptoms improved on oxybutynin Dyspareunia 17673624 N94 .10 Counseled about if and different causes. Replens helping as per patient Glycosuria 58614670 R81 Advised to f/u with PCP [id number] MD Jose Mckeon (Adult Med) [address] [place] [address] [id number] 0 04/17/2018 14:55:46 04/17/2018 16:25:58 Type 2 diabetes mellitus 48481305 E11.40 Diabetic diet, keep the weight down. HgA1c 10.2%, blood sugar is 233 Mg%, will increase lantus from 15 units to 20 units /day to achieve better DM controll and safe presurgica l condition, discussed with patient , she understood and agreed. Acute bronchitis 0350387 2 J20.9 [id number] Murali Silva MD [facility] (Adult Med) [address] [place] [address] [phone] 0 04/23/2018 12:26:36 04/27/2018 11:41:24 Type 2 diabetes mellitus 49650793 E11.40 Diabetic diet, keep the weight down. HgA1c 10.2%, blood sugar is 233 Mg%, will increase lantus from 15 units to 20 units /day to achieve better DM controll and safe presurgica l condition, discussed with patient , she understood and agreed. [id number] MD Jose Alvarez (UNARMED SECURITY OFFICER) [address] [place] [address] [phone] 0 09/07/2018 10:17:14 09/07/2018 16:03:36 Complex atypical endometrial hyperplasia 526888763 N85.02 s/p hysterecto my. Urge incon tinence of urine 46098945 N39.41 Counseled about kegel excercises . Glycosuria 25741434 R81 Advised to f/u with PCP. [id number] Murali Silva MD [facility] (Adult Med) [address] [place] [address] [place] 96[address]-355 0 09/08/2018 12:13:10 09/09/2018 10:13:40 Type 2 diabetes mellitus 89791694 E11.40 Diabetic diet, keep the weight down. HgA1c 10.2%, blood sugar is 233 Mg%, will increase lantus from 15 units to 20 units /day to achieve better DM controll and safe presurgica l condition, discussed with patient , she understood and agreed. Non fasting blood sugar is 227 mg%. 09-08-2018 . Edema of l ower extremity 422894589 R60.0 Low salt diet, so far she has no leg edema today,. will resume furosemide as a maintenanc charu mmeasures. 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 Chronic ob structive pulmonary disease 03779846 J44.9 Chronic anxiety 00175350 9 F41.9 Stable. Bladder mu scle dysfunction - overactive 334610338 N32.81 Stable. Morbid obesity 953945745 E66.01 Diet, exercise and lose weight. Hypertensive disorder 38 091280 I10 Well controll, low salt diet. Osteoarthritis 564694495 M19.90 Power chair evaluation , unsteady gaits, Hyperlipidemia 67837661 E78.5 Under the care of her cardiologi st. Tobacco de pendence syndrome 73889965 F17.290 Administra tion of influenza vaccine 56710748 Z23 Restless legs 92953960 G 25.81 Controlled symptoms by ropinirole . Chronic pain syndrome 37 0983321 G89.4 Migraine 13329840 G43.90 9 On sumatripta n. Dyspareunia 92296756 N94 .10 Nausea present 674889947 R11.0 [id number] Murali Silva MD [facility] (Adult Med) [address] [place] [address] [phone] 0 03/15/2019 16:08:12 03/16/2019 11:34:36 Type 2 diabetes mellitus 59787619 E11.40 Diabetic diet, keep the weight down. HgA1c 10.2%, blood sugar is 233 Mg%, will increase lantus from 15 units to 20 units /day to achieve better DM controll and safe presurgica l condition, discussed with patient , she understood and agreed. Non fasting blood sugar is 227 mg%. 09-08-2018 . Edema of l ower extremity 400309062 R60.0 Low salt diet, so far she has no leg edema today,. will resume furosemide as a maintenanc charu mmeasures. 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 Chronic ob structive pulmonary disease 43669643 J44.9 Restlessness 770954190 R 45.1 Error. Chronic anxiety 84580384 9 F41.9 Stable. Bladder mu scle dysfunction - overactive 581456387 N32.81 Stable. Morbid obesity 890654134 E66.01 Diet, exercise and lose weight. Hypertensive disorder 38 921366 I10 Well controll, low salt diet. Osteoarthritis 318240837 M19.90 Power chair evaluation , unsteady gaits, Tobacco de pendence syndrome 96167368 F17.290 Screening mammography 24 469612 Z12.31 Restless legs 24298620 G 25.81 Controlled symptoms by ropinirole . Hyperlipidemia 38798032 E78.5 Under the care of her cardiologi st. Migraine 97531430 G43.90 9 On sumatripta n. Unsteady w hen standing 568649261 R26.81 [id number] MD Jose Mckeon (Adult Med) [address] [place] [address] [phone] 0 06/04/2019 15:33:58 06/07/2019 10:32:05 Type 2 diabetes mellitus 75938733 E11.40 Diabetic diet, keep the weight down. HgA1c 10.2%, blood sugar is 233 Mg%, will increase lantus from 15 units to 20 units /day to achieve better DM controll and safe presurgica l condition, discussed with patient , she understood and agreed. Non fasting blood sugar is 227 mg%. 09-08-2018 . Right lowe r quadrant pain 551032075 R10.31 Discussed with patient. Go to ER any time for any concern. She understood . and agreed, [id number] ISAEL CEDILLO (UNARMED SECURITY OFFICER) [address] [place] [address] [phone] 0 07/08/2019 11:30:41 07/09/2019 13:34:27 Candidiasis of skin 03174632 B37.2 Venereal d isease screening 834432842 Z11.3 Abscess 233675832 L02.91 In right inguinal region. Already drained. Cleaned and packed with sterile wick. Pt to remove in 2-3 days. Pt has been on multiple rounds of abx for cellulitis . Going to wait for culture results before initiating new abx. Gynecologi c examination 93817985 Z01.411 Screening for malignant neoplasm of breast 119471639 Z12.31 Urge incon tinence of urine 43854355 N39.41 [id number] Murali Silva MD [facility] (Adult Med) [address] [place] [address] [id number] 0 09/17/2019 09:58:13 09/20/2019 09:43:57 Bladder muscle dysfunction - overactive 849880464 N32.81 Stable. Edema of l ower extremity 891965991 R60.0 Low salt diet, so far she has no leg edema today,. will resume furosemide as a maintenanc charu mmeasures. Hypertensive disorder 38 773904 I10 Well controll, low salt diet. Right lowe r quadrant pain 445413083 R10.31 Discussed with patient. Go to ER any time for any concern. She understood . and agreed, Type 2 estevan betes mellitus 54257134 E11.40 Diabetic diet, keep the weight down. HgA1c 10.2%, blood sugar is 233 Mg%, will increase lantus from 15 units to 20 units /day to achieve better DM controll and safe presurgica l condition, discussed with patient , she understood and agreed. Non fasting blood sugar is 227 mg%. 09-08-2018 . Has been tested her blood sugar at least 4 times/day, for several months, also has adjusted sliding scale humalog 3 times or more times for the last more than 6 months. Candidiasis of skin 4988 3006 B37.2 Resolved. Chronic ob structive pulmonary disease [id number] J44.9 Stable. Mixed urin mary incontinence [id number] N39.46 Stable. Hyperlipidemia 03120139 E78.5 Under the care of her cardiologi st. Nausea present 606014933 R11.0 Stable. Chronic pain syndrome 37 9218293 G89.4 Stable. Chronic cough 57388426 R 05 Advised her to quit cigarettes smoking. [id number] Murali Silva MD [facility] (Adult Med) [address] [place] [address] 03/28/2020 13:28:21 03/29/2020 06:50:14 Cellulitis of lower limb [id number] L03.119 Discussed with patient, asking for diflucan in case yeast infestion . Pain in right knee 24368 34416 12952 M25.561 Discussed with patient, she agreed, [id number] Murali Silva MD [facility] (Adult Med) [address] [place] [address] 06/13/2020 10:15:32 06/14/2020 15:27:57 Acute upper respiratory infection 04982444 J06.9 Chronic ob structive pulmonary disease 79407407 J44.9 Stable. 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 Hypertensive disorder 38 004508 I10 Well controll, low salt diet. Morbid obesity 289309571 E66.01 Diet, exercise and lose weight. Osteoarthritis 416156214 M19.90 Power chair evaluation , unsteady gaits, Tobacco de pendence syndrome 98732436 F17.290 Advised her to quit cigarettes smoking. Type 2 estevan betes mellitus 09608933 E11.40 Diabetic diet, keep the weight down. HgA1c 10.2%, blood sugar is 233 Mg%, will increase lantus from 15 units to 20 units /day to achieve better DM controll and safe presurgica l condition, discussed with patient , she understood and agreed. Non fasting blood sugar is 227 mg%. 09-08-2018 . Has been tested her blood sugar at least 4 times/day, for several months, also has adjusted sliding scale humalog 3 times or more times for the last more than 6 months. Chronic pain syndrome 37 8194083 G89.4 Stable. Hyperlipidemia 27573682 E78.5 Under the care of her cardiologi st. Migraine 99051797 G43.90 9 On sumatripta n. Urge incon tinence of urine 19669740 N39.41 Stable. Coronary atherosclerosis 553709514 I25.83 Under the care of her cardiologi st. Chronic constipation 236 542249 K59.09 [id number] ISAEL CEDILLO (UNARMED SECURITY OFFICER) [address] [place] [address] 08/10/2020 15:08:25 08/15/2020 09:22:53 Candidal vulvovaginitis 66324833 B37.3 Hx of yeast infection with abx use. She also reports a rash on her posterior upper legs that is similar to when she had a yeast rash. Start nystatin, fluconazol e, and zinc oxide as prescribed . Keep area clean and dry. RTC if not improved. Acute urin mary tract infection 842993052 N39.0 Irritative voiding symptoms x 1 week. H/o recurrent UTI. Start empiric abx. Advised to increase water intake. Take abx as prescribed . Azo OTC for pain relief. Avoid sugary drinks. Discussed proper wiping techniques . RTC if symptoms do not improve. [id number] ISAEL RODRIGUES (Adult Med) [address] [place] [address] 08/23/2020 11:22:49 08/25/2020 11:43:18 Increased frequency of urination 051939186 R35.0 Complainin g of continued dysuria and vaginal discomfort x 2-3 weeks.She had phone visits with Dr. Silva and Roselia in the past couple weeks, she was treated with Bactrim, macrobid, nystatin, and fluconazol e.The cloudy urine has improved but still having dysuria, urinary frequency, and swelling/r edness of the vagina.Pt denies pelvic pain, hematuria, n/v/f.Urin e dipstick showed 1000 glucose, mild LE and trace blood- urine symptoms possibly due to elevated BS readings- vaginal nuswab performed in the office- urine culture sent- Advised to increase water intake. Take Azo OTC for pain relief.- Avoid sugary drinks. Get BS under control.- Discussed proper wiping techniques . Type 2 estevan betes mellitus 29696190 E11.9 HgbA1c was 10.6 todayNot checking daily blood sugars, does not have a meter at home Currently taking metformin 500 mg BID, lantus 20 units BID, and humalog mix 20 units BID- start checking BS 2-3x/day and keep a log- will refer to endocrinol darien due continued high blood sugar levels- provided her with orders for diabetes supplies- advised patient many of her issues may be from her uncontroll ed diabetes including recurrent UTIs, recurrent derrek infections , and poor wound healing- f/u with PCP in 1 month Candidal intertrigo 2661 02519 B37.2 Recurrent fungal infections near her groin and in her intertrigi nous areasCurre ntly using nystatin cream and zinc oxide which has provided some reliefDisc ussed supportive care at home including: - Skin folds should be kept as clean and dry as possible. Cleansing should be gentle, and scrubbing should be avoided, therefore, skin folds should be ? patted? instead of wiped dry.- Encouraged to wear loose-fitt ing, lightweigh t clothing made from natural fibers to absorb moisture from skin folds.- Textiles that use a polyuretha ne coating are effective in wicking and translocat ing moisture, will try to order [facility] examination [id number] Z00.00 Patient requesting labs to be completedP 12/26 was mild in office today (11 out of 27), continue with medication - provided her with the orders Vaginitis 10094671 N76.0 Complainin g of dysuria, vaginal burning, and vaginal swelling x 2-3 weeks No improvemen t with nystatin or diflucan creamOn PE: very limited due to body habits, vulva erythemato us with shallow appearing sores/wei sions noted, large amount of white, thin, foul-smell ing discharge present near the introitus- nuswab completed- will start metronidaz ole to cover for bacterial vaginosis- will send diflucan since hx of recurrent yeast infections with abx use Acute sinusitis 03259381 J01.90 Complainin g of nasal pain, sinus pressure, and nasal congestion for a couple weeksOn PE: sinuses TTP, nasal turbinates erythemato us - will send abx for 5 days, take with food [id number] MD [facility] (Adult Med) [address] [place] [address] 09/27/2020 14:32:52 09/28/2020 14:13:17 Chronic anxiety 764179474 F41.9 Stable. Chronic ob structive pulmonary disease 86910665 J44.9 Stable. Edema of l ower extremity 786623420 R60.0 Low salt diet, so far she has no leg edema today,. will resume furosemide as a maintenanc charu mmeasures. Hyperlipidemia 20868624 E78.5 Under the care of her cardiologi st. Hypertensive disorder 38 341701 I10 Well controll, low salt diet. 144/88 mmhg. 09-27-2020 . Migraine 38455393 G43.90 9 On sumatripta n. Morbid obesity 249657737 E66.01 Diet, exercise and lose weight. Osteoarthritis 095672057 M19.90 Power chair evaluation , unsteady gaits, Restless legs 07634818 G 25.81 Controlled symptoms by ropinirole . 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 Tobacco de pendence syndrome 07913388 F17.290 Advised her to quit cigarettes smoking. Type 2 estevan betes mellitus 45057416 E11.40 Diabetic diet, keep the weight down. HgA1c 10.2%, blood sugar is 233 Mg%, will increase lantus from 15 units to 20 units /day to achieve better DM controll and safe presurgica l condition, discussed with patient , she understood and agreed. Non fasting blood sugar is 227 mg%. 09-08-2018 . Has been tested her blood sugar at least 4 times/day, for several months, also has adjusted sliding scale humalog 3 times or more times for the last more than 6 months. She is going to see a endocrinol ogist, yolanda=id 09-27-2020 . Urge incon tinence of urine 62188003 N39.41 Stable. Health Concerns Section Related Observation LastModified by Organization Detai ls LastModified Time None Recorded Concern Status LastModified by Organization Details LastModified Time None Recorded Advance Directives Directive N: Payers Encounter Date Sequence Insurance Name Policy Number Policy Jensen Covered Member ID Jensen Member ID Guarantor Name 03/28/2020 1 [facility] PRIOR TO 05/17/2021 (MEDICAID REPLACEMENT - HMO) Juliann Moody [id number] Juliann Moody 06/13/2020 1 [facility] PRIOR TO 05/17/2021 (MEDICAID REPLACEMENT - HMO) Juliann Moody [id number] Juliann Moody 08/10/2020 1 [facility] PRIOR TO 05/17/2021 (MEDICAID REPLACEMENT - HMO) Juliann Mooyd [id number] Juliann Moody 08/23/2020 1 [facility] PRIOR TO 05/17/2021 (MEDICAID REPLACEMENT - HMO) Juliann Moody [id number] Juliann Moody 09/27/2020 1 [facility] PRIOR TO 05/17/2021 (MEDICAID REPLACEMENT - HMO) Juliann Moody [id number] Juliann Moody Notes Date Note Type Note Provider Name and Address Organization Details Recorded Time 03/28/2020 text/html Left leg bumped . bruised , dose not know if is infected , also right knee arthritis pain, discussed with patient , will try antibiotics and pain medication, she agreed, re-schedule appointment after the acevedo virus pandemic is over, she agreed, she will keep this offic informed. allergic to aspirin, brilinta , codeine and morphine. Murali Silva MD Attn: [address] [place], [address], [facility] 03/28/2020 15:22:08 06/13/2020 text/html This is phone vi sit, due to acevedo virus pandemic , she understood and agreed, allergic to aspirin, brilinta, codeine and morphine, has had sore throat for few days, agreed to try antibiotics , and wants some pill for yeast infection afterwards , history of COPD, diabetic sensory polyneuropathy, hyperlipidemia, hypertension, morbid obesity , osteoarthritis and restless legs, Murali Silva MD Attn: [address] [place], [address], [facility] 06/13/2020 12:34:35 08/10/2020 text/html 60 yo F presents via phone visit for cloudy urine, urinary frequency, low back pain, and swelling around the vulva that began 1 week ago. The pt states she thought she was getting a UTI and drank cranberry juice and water without relief. She contacted Dr. Silva who prescribed her an abx for her UTI. She has since completed the abx but she is still having symptoms. She normally gets a yeast infection with abx as well. She does not have any nystatin and used an abx cream once without relief. Pt denies pelvic pain, hematuria, n/v/f. She also reports a rash on her posterior upper legs. She states that it is similar to when she had a yeast rash. She has used cream on it in the past which has helped but stung. She would like to get some medication to resolve this. Of note, pt in morbidly obese and wheelchair bound and cannot make it to the clinic at this time. ISAEL CEDILLO Attn: [address]ing[address] [place], [address], [facility] 08/14/2020 10:18:11 08/23/2020 text/html 60 yo F presents today for continued dysuria and vaginal discomfort x 2-3 weeks. She usually follows with Dr. Silva and Roselia Cooper for OBGYN care. She had phone visits with Dr. Silva and Roselia in the past couple weeks, she was treated with Bactrim, macrobid, nystatin, and fluconazole. The cloudy urine has improved but still having dysuria, urinary frequency, and swelling/redness of the vagina. Pt denies pelvic pain, hematuria, n/v/f. She also reports a rash on her posterior upper legs. She states that it is similar to when she had a yeast rash. She has used cream on it in the past which has helped but stung. She would like to get some medication to resolve this. Of note, pt is morbidly obese and wheelchair bound. She spends her day either in the wheelchair or in bed. ISAEL RODRIGUES Attn: [address]ing[address] [place], [address], [facility] 08/23/2020 21:48:36 09/27/2020 text/html last office visi t, she understood and agreed to switch provider, type 2 DM with peripheral neuropathy , morbid obesity, chronic legs edema, hypertension, arthritis, COPD, chronic anxiety, tobacco dependency and bladder muscle dysfunction, wants to go to pain management , Physical therapy, also this office suggestes nerve conduction test and venous doppler study, she also agreed for these.allergic to aspirin, brilinta, codeine and morphine. Murali Silva MD Attn: [address] [facility], [place], [address], [place] [facility] 09/27/2020 15:50:57 OBGyn Episode Ob Episode Information Episode Created Date Number of Fetuses Patient Bloodtype Patient rh Status Prepregnancy Weight lbs Domestic Partner Domestic Partner Phone Father Name Account Auditor Status 02/05/20 18 1 CLOSED Fetus Data First Name Last Name Admitted to NICU Weight (g) Sex Living Outcome Pediatric Complications Fetus ID Race Codes Race Delivery Type 3798.83 3 F Full Term 24006 Vaginal Gordon Calculation Initial Gordon Date Initial Exam Date Initial Exam Provider Initial Ultrasound Date Last Menstrual Period Date Ultra Sound Weeks Gestation 0 Eighteen To Twenty Week Gordon Update Ultra Sound Date Fundal Height At Umbil Quickening Date Ultra Sound Latest Weeks Gestation Final Gordon Confirmed By Final Gordon Confirmed Date Final Gordon Date Ultra Sound Latest Days Gestation 0 0 Menstrual History Last Menstrual Date Menses Monthly On Bcp Conception Prior Menses Frequency Hcg Plus Date Menarche Onset Age Delivery Information Delivery Date Delivery Type Labor Anesthesia Weeks Gestation Incision Type Labor Labor Length Hrs Delivered By Post Complications Tubal Sterilization Discharge Date Comments 8 None 40 false Discharge Information Feeding Method Contraceptive Method Maternal HG B and HCT Levels Ob Episode Information Episode Created Date Number of Fetuses Patient Bloodtype Patient rh Status Prepregnancy Weight lbs Domestic Partner Domestic Partner Phone Father Name Account Auditor Status 02/05/20 18 1 CLOSED Fetus Data First Name Last Name Admitted to NICU Weight (g) Sex Living Outcome Pediatric Complications Fetus ID Race Codes Race Delivery Type 3713.55 7704 M Full Term [address]15 Vaginal Gordon Calculation Initial Gordon Date Initial Exam Date Initial Exam Provider Initial Ultrasound Date Last Menstrual Period Date Ultra Sound Weeks Gestation 0 Eighteen To Twenty Week Gordon Update Ultra Sound Date Fundal Height At Umbil Quickening Date Ultra Sound Latest Weeks Gestation Final Gordon Confirmed By Final Gordon Confirmed Date Final Gordon Date Ultra Sound Latest Days Gestation 0 0 Menstrual History Last Menstrual Date Menses Monthly On Bcp Conception Prior Menses Frequency Hcg Plus Date Menarche Onset Age Delivery Information Delivery Date Delivery Type Labor Anesthesia Weeks Gestation Incision Type Labor Labor Length Hrs Delivered By Post Complications Tubal Sterilization Discharge Date Comments 0 None 40 false [place] Discharge Information Feeding Method Contraceptive Method Maternal HG B and HCT Levels Ob Episode Information Episode Created Date Number of Fetuses Patient Bloodtype Patient rh Status Prepregnancy Weight lbs Domestic Partner Domestic Partner Phone Father Name Account Auditor Status 02/05/20 18 1 CLOSED Fetus Data First Name Last Name Admitted to NICU Weight (g) Sex Living Outcome Pediatric Complications Fetus ID Race Codes Race Delivery Type 3968.93 F Full Term [address]50 Vaginal Gordon Calculation Initial Gordon Date Initial Exam Date Initial Exam Provider Initial Ultrasound Date Last Menstrual Period Date Ultra Sound Weeks Gestation 0 Eighteen To Twenty Week Gordon Update Ultra Sound Date Fundal Height At Umbil Quickening Date Ultra Sound Latest Weeks Gestation Final Gordon Confirmed By Final Gordon Confirmed Date Final Gordon Date Ultra Sound Latest Days Gestation 0 0 Menstrual History Last Menstrual Date Menses Monthly On Bcp Conception Prior Menses Frequency Hcg Plus Date Menarche Onset Age Delivery Information Delivery Date Delivery Type Labor Anesthesia Weeks Gestation Incision Type Labor Labor Length Hrs Delivered By Post Complications Tubal Sterilization Discharge Date Comments 5 None 40 false Discharge Information Feeding Method Contraceptive Method Maternal HG B and HCT Levels
--- OUTSIDE RECORDS SUMMARY | 2024-12-13 23:03 | XMS_ITS | Encounter Summary ---
Author Organization [facility] Address [address] [place] [address] Care Team Providers Care Sash Finisher Name Role Phone Murali Silva MD Primary Care Provider [phone] Karime Aguilera RN [facility] Gurvinder Stephens MD Primary Care Provider [phone] Reason for Visit * Reason Onset Date Comments Patient Requested Call 11/05/2021 Encounter Details Date Type Department Care Team (Late st Contact Info) Description 11/05/2021 Telephone [facility] [address] [place] [address] Christy Khan MD [address] [address] Patient Requested Call Social History Tobacco Use Types Packs/Day Years [...] Telephone Encounter - Pari Denton RN - 11/05/2021 12:15 PM IMPLEMENTATION PROJECT MANAGER RN called patient. Pt stating she does not want to stand as her knees buckle. Pt made aware that office does have lower exam tables. Pt stating she is coming to the office visit in electric wheelchair and will also be accompanied by home health. Will also pass along to MD and medical chemist IMANI Tesfaye EMENTATION PROJECT MANAGER * Telephone Encounter - Holly Yates - 11/05/2021 12:08 PM CST Patient is requesting a call back to confirm accommodations for her appt. She recently had surgery and won't be able to get on a high table for her exam. Please advise: [phone] EMENTATION PROJECT MANAGER documented in this encounter Plan of Treatment Not on file documented as of this encounter Visit Diagnoses Not on filedocumented in this encounter Care Teams Sash Finisher Relationship Specialty Start Date End Date Murali Silva MD [address] [place] [address] PCP - General 03/03/18 12/31/21 Gurvinder Renteria MD [address] [facility] [address] [place] [address] PCP - General 01/01/22 Karime Aguilera RN 05/07/18 documented as of this encounter
--- OUTSIDE RECORDS SUMMARY | 2024-12-13 23:03 | XMS_ITS | CONTINUITY OF CARE DOCUMENT ---
Author Name rea, rea Address Unknown Organization [facility] Address [address] [place] [address] Phone [phone] Care Team Providers Care Telehealth Nurse Name Role Phone Tello Li MD Unavailable SONIA TAYLOR MD Unavailable SONIA TAYLOR MD Unavailable [phone] PROBLEMS Condition Status Date Provider Notes Numbness in feet active Tello Li MD HTN essential active Tello Li MD Diabetes mellitus active Tello Li MD Arthritis active Tello Li MD Asthma active Tello Li MD COPD active Tello Li MD Hyperlipidemia active Tello Li MD SLEEP APNEA - mild active Tello Li MD Family History of Hypertension: completed - Us velasquez Li MD CAD s/p stent to the diagonal active Tello Li MD Tobacco abuse active Tello Li MD Fatigue active Tello Li MD Obesity active Tello Li MD Necrotizing fasciitis- h/o active Tello álvarez MD Atrial fibrillation active Tello Li MD Cardiac murmur active Tello Li MD Depression active Tello Li MD ENCOUNTERS Date Type Provider Location Encounter Diag nosis 07/30 - 07/30 In-person encounter Office Visit Tello Li MD [facility] Depression 02/12 - 02/12 In-person encounter Office Visit Tello Li MD [facility] Necrotizing fasciitis- h/oAtrial fibrillationCardiac murmur 11/24 - 11/27 In-person encounter Office Visit Tello Li MD [facility] 07/23 - 07/26 In-person encounter Office Visit Tello Li MD [facility] Family History of Hypertension:CAD s/p s tent to the diagonal 07/23 - 07/23 In-person encounter Office Visit Tlelo Li MD [facility] Obesity 01/22 - 01/22 In-person encounter Office Visit Tello Li MD [facility] SLEEP APNEA - mildFatigue 07/03 - 07/03 In-person encounter Office Visit Tello Li MD [facility] 01/02 - 01/02 In-person encounter Office Visit Tello Li MD [facility] CAD s/p stent to the diagonal 01/01 - 01/02 In-person encounter Office Visit Tello Li MD [facility] HTN essentialDiabetes mellitusArthritisAsthmaCOPDHyperlipidemiaSLEEP APNEA - mildCAD s/p stent to the diagonalTobacco abuse VITAL SIGNS Date Observation Value Provider Body Mass Index (Ratio) 61.46 kg/m2 Rufina Li MD blood pressure, cuff size large Kun Avila blood pressure, diastolic 88 mm[Hg] Kun Avila blood pressure, systolic 128 mm[Hg] Juanpablo Avila oxygen saturation, oximetry 96 % Vesta Avila pulse rate 87 /min Vesta Avila weight E&M 347 [lb_av] Vesta Avila respiratory rate E&M 12 /min Vesta Avila height E&M 63 [in_i] Vesta Avila blood pressure, diastolic 89 mm[Hg] Li [facility]Log[facility] blood pressure, systolic 138 mm[Hg] Yenni kLogic blood pressure, cuff size large Ja rret blood pressure, diastolic 89 mm[Hg] Ja rret blood pressure, systolic 138 mm[Hg] Jar ret pulse rate 67 /min Orlando y oxygen saturation, oximetry 96 % Orlando respiratory rate E&M 16 /min Orlando height E&M 63 [in_i] Orlando y Body Mass Index (Ratio) 64.47 kg/m2 Damon Carranza NP blood pressure, cuff size regular Cy rylie Pierre blood pressure, diastolic 80 mm[Hg] Cy rylie Pierre blood pressure, systolic 132 mm[Hg] Susana Pierre oxygen saturation, oximetry 93 % Jenelle Pierre respiratory rate E&M 16 /min Jenelle Pierre pulse rate 74 /min Jenelle Hernandez l weight E&M 364 [lb_av] Jenelle Izaiahbel l height E&M 63 [in_i] Jenelle Hernandez l Body Mass Index (Ratio) 68.19 kg/m2 Rufina Li MD blood pressure, cuff size regular Cy rylie Pierre blood pressure, diastolic 80 mm[Hg] Cy rylie Pierre blood pressure, systolic 138 mm[Hg] Susana Pierre oxygen saturation, oximetry 90 % Jenelle Pierre respiratory rate E&M 18 /min Jenelle Pierre pulse rate 77 /min Jenelle painter weight E&M 385 [lb_av] Jenelle painter height E&M 63 [in_i] Jenelle painter Body Mass Index (Ratio) 65.89 kg/m2 Rufina Li MD blood pressure, cuff size regular Cy rylie Pierre blood pressure, diastolic 70 mm[Hg] Cy rylie Pierre blood pressure, systolic 132 mm[Hg] Susana Pierre oxygen saturation, oximetry 96 % Jenelle Pierre respiratory rate E&M 18 /min Jenelle Pierre pulse rate 77 /min Jenelle painter height E&M 63 [in_i] Jenelle painter weight E&M 372 [lb_av] Jenelle painter Body Mass Index (Ratio) 68.90 kg/m2 Rufina Li MD blood pressure, diastolic 90 mm[Hg] Paco isted Alvin blood pressure, systolic 142 mm[Hg] Kri ststu Kanby respiratory rate E&M 18 /min Liliya Alvin oxygen saturation, oximetry 96 % Liliya Newton pulse rate 90 /min Liliya Newton blood pressure, cuff size regular Kr isted Alvin weight E&M 389 [lb_av] Liliya Newton height E&M 63 [in_i] Liliya Alvin Body Mass Index (Ratio) 68.02 kg/m2 Rufina Li MD blood pressure, cuff size regular Ke rri Marla blood pressure, diastolic 80 mm[Hg] Ke rri Marla blood pressure, systolic 169 mm[Hg] Ker ri Marla oxygen saturation, oximetry 93 % Linda Olivermagdy respiratory rate E&M 18 /min Linda Greer betsysachinsunny pulse rate 73 /min Linda Olivercindyelizabeth er weight E&M 384 [lb_av] Linda Oliverjamil lder height E&M 63 [in_i] Linda Oliverjamil er Body Mass Index (Ratio) 70.85 kg/m2 Rufina Li MD blood pressure, cuff size regular Ke rrranjan Marla blood pressure, diastolic 83 mm[Hg] Ke rrranjan Gutiérrez blood pressure, systolic 150 mm[Hg] Filomena vidal Marla oxygen saturation, oximetry 93 % Linda Marla respiratory rate E&M 18 /min Linda Greer yaron pulse rate 68 /min Linda Loli er weight E&M 400 [lb_av] Linda Loli er height E&M 63 [in_i] Linda Loli [facility] Body Mass Index (Ratio) 72.09 kg/m2 Rufina Li MD blood pressure, resting Yes Nohemi Hernández blood pressure, diastolic 84 mm[Hg] Layla Hernández blood pressure, systolic 162 mm[Hg] Katie Hernández oxygen saturation, oximetry 97 % Elías Hernández respiratory rate E&M 18 /min Clarence Hernández pulse rate 85 /min Elías herbert weight E&M 407 [lb_av] Elías herbert height E&M 63 [in_i] Elías herbert ALLERGIES Allergy Name Onset Date Reaction Criticality Status ASA Low Criticality active BRILINTA Low Criticality active CODEINE Low Criticality active MORPHINE Low Criticality active RESULTS Date Observation Value Provider Reference Range Interpretation Location 0 alanine aminotransferase (SGPT), serum 11 1/L [facility] 0-32 0 aspartate aminotransferase (SGOT), serum 11 1/L [facility] 0-40 0 alkaline phosphatase, serum 104 1/L [facility] 39-117 0 bilirubin, serum, total 0.3 mg/dL [facility] 0.0-1.2 0 albumin/globulin ratio, serum 1.2 [facility] 1.2-2.2 0 globulin, serum 2.9 [facility] 1.5-4.5 0 albumin, serum 3.5 g/dL [facility] 3.5-5.5 0 protein, total, serum 6.4 g/dL [facility] 6.0-8.5 0 calcium, serum 9.0 mg/dL [facility] 8.7-10.2 0 carbon dioxide, venous blood 25 mmol/L [facility] 18-29 0 chloride, serum 101 mmol/L [facility] 96-106 0 potassium, serum 4.3 mmol/L [facility] 3.5-5.2 0 sodium, serum 143 mmol/L [facility] 274-800 1379/03/1 0 urea nitrogen/creatinine ratio, serum 18 [facility] 9-23 0 eGFR if 126 mL/min/{1 .73_m2} [facility] >59 0 eGFR if not 109 mL/min/{1 .73_m2} [facility] >59 0 creatinine, serum 0.49 mg/dL [facility] 0.57-1.00 Low 0 urea nitrogen, blood 9 mg/dL [facility] 6-24 0 blood glucose, random 215 mg/dL [facility] 65-99 High 0 lipoprotein, beta, serum, point, quantitative, calculated 76 mg/dL [facility] 0-99 0 very low density lipoproteins 46 mg/dL [facility] 5-40 High 0 HDL cholesterol, serum 35 mg/dL [facility] >39 Low 0 triglyceride, serum, random 228 mg/dL [facility] 0-149 High 0 cholesterol, serum 157 mg/dL [facility] 852-235 1922/03/1 0 basophil count, absolute 0.0 x10E3/uL [facility] 0.0-0.2 0 Eosinophil Absolute Count 0.2 X10E3/UL [facility] 0.0-0.4 0 monocyte count, blood, automated 0.5 X10E3/UL [facility] 0.1-0.9 0 lymphocyte count, blood, automated 2.2 X10E3/UL [facility] 0.7-3.1 0 Absolute Neutrophils 5.9 X10E3/UL [facility] 1.4-7.0 0 basophils as percent of blood leukocytes 0 % [facility] Not Estab. 0 eosinophils as percent of blood leukocytes 2 % [facility] Not Estab. 0 monocytes as percent of blood leukocytes 6 % [facility] Not Estab. 0 lymphocytes as percent of blood leukocytes 25 % [facility] Not Estab. 0 neutrophils as percent of blood leukocytes 67 % [facility] Not Estab. 0 platelet count 225 X10E3/UL [facility] [phone]/03/1 0 red blood cell distribution width 15.3 % [facility] 12.3-15.4 0 mean corpuscular hemoglobin concentration, RBC 34.0 G/DL [facility] 31.5-35.7 0 mean corpuscular hemoglobin, RBC 29.6 pg [facility] 26.6-33.0 0 mean corpuscular volume, RBC 87 fL [facility] 79-97 0 hematocrit, blood 48.8 % [facility] 34.0-46.6 High 0 hemoglobin, blood 16.6 g/dL [facility] 11.1-15.9 High 0 erythrocyte (RBC) count 5.61 X10E6/UL [facility] 3.77-5.28 High 0 leukocyte count, blood 8.9 X10E3/UL [facility] 3.4-10.8 1 thyroid stimulating hormone, serum 1.660 ??IU/ML [facility] 0.270 - 4.200 1 very low density lipoproteins 44.6 mg/dL [facility] 5.0 - 40.0 High 1 LDL/HDL (low-density lipoprotein/high-den sity lipoprotein) ratio 1.9 RATIO [facility] - 1 lipoprotein, beta, serum, point, quantitative, calculated 57.4 (?) [facility] 0.0 - 100.0 1 HDL cholesterol, serum 30.0 mg/dL [facility] 45.0 - 65.0 Low 1 cholesterol, serum 132.0 mg/dL [facility] 0.0 - 200.0 1 triglyceride, serum, fasting 223.0 mg/dL [facility] 0.0 - 150.0 High 1 anion gap, serum 15.4 [facility] - 1 albumin/globulin ratio, serum 1.5 g/dL [facility] 1.1 - 2.5 1 globulin, serum 2.6 [facility] 2.3 - 3.8 1 urea nitrogen/creatinine ratio, serum 25.0 [facility] - 1 Estimated Glomerular Filtration Rate (calc) 110.3 (?) [facility] 59.0 - 1 chloride, serum 97.6 mmol/L [facility] 98.0 - 107.0 Low 1 potassium, serum 4.8 mmol/L [facility] 3.5 - 5.1 1 sodium, serum 139.0 mmol/L [facility] 136.0 - 145.0 1 creatinine, serum 0.6 mg/dL [facility] 0.5 - 1.0 1 carbon dioxide, venous blood 26.0 mmol/L [facility] 22.0 - 29.0 1 albumin, serum 4.0 g/dL [facility] 3.5 - 5.2 1 calcium, serum 9.0 mg/dL [facility] 8.6 - 10.2 1 aspartate aminotransferase (SGOT), serum 10.0 1/L [facility] 0.0 - 32.0 1 alkaline phosphatase, serum 99.0 1/L [facility] 40.0 - 130.0 1 alanine aminotransferase (SGPT), serum 12.0 1/L [facility] 0.0 - 33.0 1 protein, total, serum 6.6 g/dL [facility] 6.6 - 8.7 1 bilirubin, serum, total 0.5 mg/dL [facility] 0.0 - 1.2 1 urea nitrogen, blood 15.0 mg/dL [facility] 6.0 - 20.0 1 blood glucose, random 252.0 mg/dL [facility] 74.0 - 99.0 High 1 hemoglobin A1C, blood, as % of total hemoglobin 9.1 % [facility] 4.0 - 5.6 High HISTORY OF MEDICATION USE Medication Status Instructions Dates Provider Indications Com mentsusannah Eliquis 5 mg tablet active Take 1 tablet by mouth twice a day Linda Gutiérrez metoprolol tartrate 50 mg tablet active Take 1 tablet by mouth twice a day Linda Gutiérrez Eliquis 5 mg tablet completed - Linda Gutiérrez metoprolol tartrate 50 mg tablet completed - Linda Gutiérrez atorvastatin 40 mg tablet active TAKE 1 TABLET BY MOUTH EVERY DAY [place] OXYBUTYNIN CHLORIDE TABLET active Take twice a day Tello Li MD CHANTIX STARTING MONTH BILL 0.5 MG X 11 & 1 MG X 42 ORAL TABLET completed One pack. Take as directed. - Linda Gruenenfelder LANTUS SOLUTION active Take 20 unit twice a day Tello Li MD NAPROXEN SODIUM 550 MG TABS active three times a day Tello Li MD furosemide 40 mg tablet active once a day Tello Li MD lisinopril 20 mg tablet active 1 tablet once a day Tello Li MD CARVEDILOL 6.25 MG ORAL TABLET completed ONE TAB. TWICE DAILY - Jenelle Pierre QVAR 40 MCG/ACT INHALATION AEROSOL SOLUTION active as needed Tello Li MD metformin 500 mg tablet active twice a day Tello Li MD gabapentin 600 mg tablet active Take 3 four times a day Tello Li MD albuterol sulfate 5 mg/mL solution for nebulization active every twelve hours as needed Tello Li MD ropinirole 1 mg tablet active once a day Tello Li MD aspirin 81 mg tablet,delayed release (DR/EC) active 1 tablet by mouth once a day Tello Li MD atorvastatin 40 mg tablet completed once daily - Elías Hernández citalopram 40 mg tablet active once a day Tello Li MD sumatriptan succinate 50 mg tablet active 1 tablet every eight hours Tello Li MD PLAVIX 75 MG ORAL TABLET completed ONE TAB. DAILY - Tello Li MD BRILINTA 90 MG ORAL TABLET completed take one tablet daily - Elías Hernández SOCIAL HISTORY Date Observation Value Provider smoking/tobacco cess ation, patient education and counseling yes Tello Li MD number of years as a smoker 20 a Tello Li MD smoking history, tot al pack/day 1 Tello Li MD cigarette use yes Tello Miramontes smoking status Current every day smoker U jaciel Li MD smoking/tobacco cess ation, patient education and counseling yes Tello Li MD number of years as a smoker 20 a Tello Li MD smoking history, tot al pack/day 1 Tello Li MD cigarette use yes Tello Miramontes smoking status Current every day smoker Anahy Li MD social history E&M Patient dario ntly smokes every day. Smoking History: P atient currently smokes every day. P atient has been counseled to quit. Preethi Carranza NP social history reviewed E&M revi ewed - no changes required Preethi Carranza NP smoking/tobacco cess ation, patient education and counseling yes Jenelle Pierre number of years as a smoker 20 a Jenelle Pierre smoking history, tot al pack/day 1 Jenelle Pierre cigarette use yes Jenelle felix smoking status Current every day smoker C chiquis Pierre social history E&M Patient matthewe ntly smokes every day. Smoking History: P atient currently smokes every day. P atient has been counseled to quit. Tello Li MD social history reviewed E&M revi ewed - no changes required Tello Li MD smoking/tobacco cess ation, patient education and counseling yes Jenelle Pierre number of years as a smoker 20 a Jenelle Pierre smoking history, tot al pack/day 1 Jenelle Pierre cigarette use yes Jenelle felix smoking status Current every day smoker C chiquis Pierre social history E&M Patient dario ntly smokes every day. Smoking History: P atient currently smokes every day. P atient has been counseled to quit. Tello Li MD social history reviewed E&M revi ewed - no changes required Tello Li MD smoking/tobacco cess ation, patient education and counseling yes Jenelle Pierre number of years as a smoker 20 a Jenelle Pierre smoking history, tot al pack/day 1 Jenelle Pierer cigarette use yes Jenelle Natalie felix smoking status Current every day smoker Mariana travlivia Ignacio social history reviewed E&M revi ewed - no changes required Tello Li MD social history reviewed E&M revi ewed - no changes required Tello Li MD smoking/tobacco cess ation, patient education and counseling yes Linda Marla number of years as a smoker 20 a Linda Dickersonmayuri smoking history, tot al pack/day 1 Linda Olivermagdy cigarette use yes Linda correa smoking status current every day smoker Marj Hernandezanastaciokiersten social history reviewed E&M revi ewed - no changes required Tello Li MD smoking/tobacco cess ation, patient education and counseling yes Linda Olivermagdy number of years as a smoker 20 a Linda Dickersonmonserratsachinanastaciokiersten smoking history, tot al pack/day 1 Linda Olivermagdy cigarette use yes Linda correa smoking status current every day smoker Marj Hernandezanastaciokiersten social history E&M Patient dario catherine smokes every day. Smoking History: P doroteo currently smokes every day. P doroteo has been counseled to quit. Tello Li MD social history reviewed E&M revi ewed - no changes required Tello Li MD number of grandchildren Tello iL MD U jaciel Li MD smoking/tobacco cess ation, patient education and counseling yes Tello Li MD number of years as a smoker 20 a Elías Hernández smoking history, tot al pack/day 1 Elías Hernández cigarette use yes Elías wilburn smoking status current every day smoker U n Guillermo MD FUNCTIONAL STATUS Date Observation Value Provider HRA, CV Assess/Plan, Angina (inactive) Management Plan continue current therapy Tello Li MD HRA, CV Assess/Plan, Angina (inactive) Management Plan continue current therapy Tello Li MD HRA, CV Assess/Plan, Angina (inactive) Management Plan continue current therapy Tello Li MD HRA, CV Assess/Plan, Angina (inactive) Management Plan continue current therapy Tello Li MD HRA, CV Assess/Plan, Angina (inactive) Management Plan continue current therapy Tello Li MD HRA, CV Assess/Plan, Angina (inactive) Management Plan continue current therapy Tello Li MD FAMILY HISTORY Family Member Condition Full Sister Family History of Co ronary Artery Disease: Full Sister Family History of Di abetes: Full Brother Family History of Di abetes: Father Family History of Co ronary Artery Disease: Mother Family History of Di abetes: Mother Family History of Co ronary Artery Disease: Mother Family History of Hy pertension: Mother Family History of Di abetes: Mother Family History of Co ronary Artery Disease: Mother Family History of Di abetes: INSURANCE PROVIDERS Payer name Policy type / Coverage type [facility] [place] [employer] (2) Medicaid [id number] ADVANCE DIRECTIVES Name Date DISCUSSED - NO DECISION MADE TREATMENT PLAN Date Name Performer Cardiology: H er updated medication list for this problem includes: Metoprolol Tartrate 50 Mg Tablet (Metoprolol tartrate) ..... Take 1 tablet by mouth twice a day Aspirin 81 Mg Tablet,delayed Release (dr/ec) (Aspirin) ..... 1 tablet by mouth once a day Furosemide 40 Mg Tablet (Furosemide) ..... Once a day Lisinopril 20 Mg Tablet (Lisinopril) ..... 1 tablet once a day & #13;BP today: 128/88 P rior BP: 138/89 (02/13/2024) Labs Reviewed: C reat: 0.49 (01/24/2018) C hol: 157 (01/24/2018) HDL: 35 (01/24/2018) LDL: 76 (01/24/2018) T (01/24/2018) Tello Li MD Cardiology:The patie nt is on a statin for pimary prevention and management of cardiovascular disease. H er updated medication list for this problem includes: Atorvastatin 40 Mg Tablet (Atorvastatin) ..... Take 1 tablet by mouth every day Tello Li MD Cardiology:doing wel l S table. Continue medical therapy. Tello Li MD Cardiology Tello Li MD Cardiology:Please se e psychiatry a ppears to limit her activity E ncouraged her to see PCP Tello Li MD Cardiology:no recurr ence o n riri Li MD Cardiology:per PCP Tello Li MD Cardiology: H er updated medication list for this problem includes: Aspirin 81 Mg Tablet,delayed Release (dr/ec) (Aspirin) ..... 1 tablet by mouth once a day Furosemide 40 Mg Tablet (Furosemide) ..... Once a day Lisinopril 20 Mg Tablet (Lisinopril) ..... 1 tablet once a day Metoprolol Tartrate 50 Mg Tablet (Metoprolol tartrate) BP today: 138/89 P rior BP: 132/80 (09/24/2019) Labs Reviewed: C reat: 0.49 (01/24/2018) C hol: 157 (01/24/2018) HDL: 35 (01/24/2018) LDL: 76 (01/24/2018) T (01/24/2018) Tello Li MD Cardiology:Stable, no SOB or CP Tello Li MD Cardiology Tello Li MD Cardiology:The naseem nt is on OAC for CVA prophylaxis S /p DCCV at [facility]. ECG shows NSR in the clinic today H ad prior home sleep study that showed mild CHEVY in 2017, repeat home study Tello Li MD Cardiology:soft systolic Tello teague MD Cardiology follow up :Per PCP Caity Carranza NP Cardiology follow up : B P today: 132/80 P rior BP: 138/80 (07/23/2019) Labs Reviewed: C reat: 0.49 (01/24/2018) C hol: 157 (01/24/2018) HDL: 35 (01/24/2018) Preethi Carranza NP Cardiology follow up :The Patient was reencouraged to stop smoking. Preethi Carranza NP Cardiology follow up :Nuclear stress 09/13/19 FINDINGS: Overall image quality is severely limited. There is likely a fixed perfusion defect of the left ventricular apex. Wall motion analysis is degraded by artifact related to the patient's large body habitus. Left ventricular ejection fraction is c alculated at 36%, but not considered to be an accurate measurement. She had an echo done today, the results of which are pending. If the results of her echo are normal, I would recommend no further workup at this time. Preethi Carranza NP Cardiology follow up :per PCP Us velasqeuz Li MD Cardiology follow up : a s she notes an occasional squeezing sensation in upper chest and neck, will repeat stress test at [facility]. otherwise, continue same meds. T he Patient was reencouraged to stop smoking. Tello Li MD Cardiology follow up : T he Patient was reencouraged to stop smoking. Tello Li MD Cardiology follow up : B P today: 138/80 P rior BP: 132/70 (07/23/2018) Tello Li MD Cardiology follow up :stable. will continue the Aspirin and the Atorvastatin. She is to continue her DM control. Tello Li MD Cardiology follow up :Pt has lost 15 lbs since last visit. She has been preparing smaller portions to eat. Tello iL MD Cardiology follow up :The Patient was reencouraged to stop smoking. Tello Li MD Cardiology follow up : B P today: 132/70 P rior BP: 142/90 (01/22/2018) Her updated medication list for this problem includes: Furosemide 40 Mg Oral Tablet (Furosemide) ..... Once daily Lisinopril 20 Mg Oral Tablet (Lisinopril) ..... One tab. daily Carvedilol 6.25 Mg Oral Tablet (Carvedilol) ..... One tab. twice daily Aspirin Adult Low Dose 81 Mg Oral Tablet Delayed Release (Aspirin) ..... One tab by mouth daily Tello Li MD Cardiology:Patient h as been fatigued and tired constantly since she began feeling sick about a month ago. W ill check labs: Lipid panel, CMP Tello Li MD Cardiology Tello Li MD Cardiology:Stable. C ontinue asa. Tello Li MD Cardiology: B P today: 142/90 P rior BP: 169/80 (07/03/2017) Labs Reviewed: C reat: 0.6 (12/18/2016) C hol: 132.0 (12/18/2016) HDL: 30.0 (12/18/2016) T.0 (12/18/2016) Tello Li MD Cardiology:The Patie nt was reencouraged to stop smoking. Tello Li MD Cardiology Follow up :The Patient was reencouraged to stop smoking. Tello Li MD Cardiology Follow up :Wakes up gasping for breath and snores throughout the night. Will order home sleep study. Tello Li MD Cardiology Follow up :Cause of S OB. Tello Li MD Cardiology Follow up :Will check a home sleep test. BP today: 169/80 P rior BP: 150/83 (01/02/2017) Labs Reviewed: C reat: 0.6 (12/18/2016) C hol: 132.0 (12/18/2016) HDL: 30.0 (12/18/2016) T.0 (12/18/2016) Tello Li MD Cardiology Follow up :Stable. Continue asa. Stop plavix. Tello Li MD Cardiology Follow up :Per Dr. Lam khan. Well controlled. Tello Li MD Cardiology Follow up : B P today: 150/83 P rior BP: 162/84 (10/31/2016) Labs Reviewed: C reat: 0.6 (12/18/2016) C hol: 132.0 (12/18/2016) HDL: 30.0 (12/18/2016) T.0 (12/18/2016) Her updated medication list for this problem includes: Furosemide 40 Mg Tabs (Furosemide) ..... Once daily Lisinopril 20 Mg Tabs (Lisinopril) ..... One tab. daily Carvedilol 6.25 Mg Tabs (Carvedilol) ..... One tab. twice daily Aspirin Adult Low Dose 81 Mg Oral Tbec (Aspirin) ..... One tab by mouth daily Tello Li MD Cardiology Follow up :The Patient was reencouraged to stop smoking. Tello Li MD Cardiology Follow up : H er updated medication list for this problem includes: Lisinopril 20 Mg Tabs (Lisinopril) ..... One tab. daily Carvedilol 6.25 Mg Tabs (Carvedilol) ..... One tab. twice daily Aspirin Adult Low Dose 81 Mg Oral Tbec (Aspirin) ..... One tab by mouth daily Plavix 75 Mg Tabs (Clopidogrel bisulfate) ..... One tab. daily Tello Li MD Cardiology Follow up :Will start chantix. Tello Li MD Cardiology:will check A1c Tello Li MD Cardiology:will chec k blood work H er updated medication list for this problem includes: Atorvastatin Calcium 40 Mg Oral Tabs (Atorvastatin calcium) ..... Once daily Tello Li MD Cardiology:The Patie nt was reencouraged to stop smoking. Tello Li MD Cardiology:cont aspirin, plavix and statin. Tello Li MD Date Name Complete Echo Monitor - Telemetry (Mobile Cardiac) LIPID PANEL Sleep Study Home Complete Echo Stress Regadenoson COMPREHENSIVE METABO LIC PANEL, W/EGFR LIPID PANEL COMPREHENSIVE METABO LIC PANEL, W/EGFR LIPID PANEL CBC (H/H, RBC, INDIC ES, WBC, PLT) LIPID PANEL COMPREHENSIVE METABO LIC PANEL, W/EGFR CBC (H/H, RBC, INDIC ES, WBC, PLT) LIPID PANEL COMPREHENSIVE METABO LIC PANEL, W/EGFR Sleep Study Home Complete Echo HEMOGLOBIN A1c THYROID PANEL WITH T SH, 3RD GENERATION LIPID PANEL COMPREHENSIVE METABO LIC PANEL W/EGFR HISTORY OF PROCEDURES Procedure Date Procedure Name Provider Procedure Notes S tatus Complex e/m visit add on Tello Li MD completed EKG Tello Li MD completed EKG Tello Li MD completed EKG Tello Li MD completed SNOMED-CT: [id number] Physical Exam, Performed: Pulse Exam of Foot Tello Li MD completed SNOMED-CT: [id number] Current Medications Documented Tello Li MD completed SNOMED-CT: [id number] Smoking Cessation Counseling Tello Li MD completed SNOMED-CT: [id number] Physical Exam, Performed: Pulse Exam of Foot Tello Li MD completed EKG Tello Li MD completed SNOMED-CT: [id number] Current Medications Documented Tello Li MD completed SNOMED-CT: [id number] Smoking Cessation Counseling Tello Li MD completed SNOMED-CT: [id number] Physical Exam, Performed: Pulse Exam of Foot Tello Li MD completed SNOMED-CT: [id number] Current Medications Documented Tello Li MD completed
--- OUTSIDE RECORDS SUMMARY | 2024-12-13 23:03 | XMS_ITS | Encounter Summary ---
Author Organization [facility] Address [address] [place] [address] Care Team Providers Care Orthopedically Impaired Teacher Name Role Phone Karime Aguilera RN, Haresh K MD Primary Care Provider [phone] Reason for Visit * Reason Onset Date Comments Question 10/29/2023 Encounter Details Date Type Department Care Team (Late st Contact Info) Description 10/29/2023 Telephone [facility] - CENTRIFUGAL OPERATOR [address] [facility] [address] [place] [address] Christy Khan MD [address] [facility] [address] [place] [address] Question Social History Tobacco Use Types Packs/Day Years [...] encounter Miscellaneous Notes * Telephone Encounter - Yesenia Shin RN - 10/29/2023 1:16 PM DATABASE SPECIALIST RN returned pt call & gathered further information. Pt states she noticed this week a burning/itching sensation in the area of her vulva. The pt is notable to ambulate or complete acts of daily living w/o assistance. The pt's roommate assists pt withmuch of her acts of daily living. Her roommate noted clumpy, white discharge as well as redness of her vulva while assisting pt into bath recently. Pt then handed phone to roommate to give further report. Pt's roommate stated that in addition to this issue, pt is incontinent of urine and is unable to keep perineum dry. Roommate wished to have usorder a Periwick. RN explained that is connected to wall suction, and that such an intervention forincontinence would need to be considered by her PCP in collaboration with home health care, to the best of RN's knowledge. Pt's roommate also stated that pt had necrotizing fascititis for which she had surgery performed for in summer and the incision site does not appear fully healed yet. Additionally, pt noted a strong odor from site, no discharge or further concerns related to RN. RN learned from pt's roomate that d/t lack of ambulation and morbid obesity, pt is unable to keep skin clean/dry/intact and skin breakdown is noted in multiple sites. RN strongly recommended f/u withthe doctor's office who performed the surgery in r/t surgery wound concern or f/u with pt's PCP to further evaluate. Pt & Pt's roommate v/u & stated they would do so. It is noted that a Caregiver comes over weekly to assist patient. RN to place order for Diflucan in treatment of s/s concerning for yeast infection. Will additionally update pt's provider MD Alonso of above issues. BASE SPECIALIST * Telephone Encounter - Ignacio Ferny - 10/29/2023 12:40 PM CST Patient called stating she has a potential yeast infection and wanted to see about getting a prescription. Offered patient an appt, she preferred Dr Khan, put her down for next available on 11/26. BASE SPECIALIST documented in this encounter Plan of Treatment Not on file documented as of this encounter Visit Diagnoses Not on filedocumented in this encounter Care Teams Orthopedically Impaired Teacher Relationship Specialty Start Date End Date Gurvinder Renteria MD [address] [place] [address] PCP - General 01/01/22 Karime Aguilera, RN 05/07/18 documented as of this encounter
--- OUTSIDE RECORDS SUMMARY | 2024-12-13 23:03 | XMS_ITS | Encounter Summary ---
Author Organization [facility] Address [address] [place] [address] Care Team Providers Care Dent Remover Name Role Phone Murali Silva MD Primary Care Provider [phone] Karime Aguilera RN [facility] Gurvinder Stephens MD Primary Care Provider [phone] Reason for Visit * Reason Onset Date Comments Update 05/06/2018 Encounter Details Date Type Department Care Team (Late st Contact Info) Description 05/06/2018 Telephone [facility] [address] [place] [address] Christy Khan MD [address] [address] Update Social History Tobacco Use Types Packs/Day Years Used Date Smoking Tobacco: Every Day Cigarettes Smokeless Tobacco: Never Alcohol Use Standard Drinks/Week Comments Yes 0 (1 standard drink = 0.6 oz pur e alcohol) Sex and Gender Information Value Date Recorded Sex Assigned at Not on file Gender Identity Not on file Sexual Orientation Not on file documented as of this encounter Miscellaneous Notes * Telephone Encounter - Charlotte Rider RN - 05/06/2018 11:49 AM CDT Pt was told to call today and let Dr. Khan know her fasting blood sugar. It was 109 this morning. She will also plan to take it first thing in the morning before she leaves home for her surgery. Advised I would message provider & let him know of her blood sugar level. Denies further needs. * Telephone Encounter - Azeb Bro - 05/06/2018 11:34 AM CDT Pt called in stating that she is having surgery tomorrow and the nurse wanted her to call in with her blood sugar this morning. Pt stated it was good at 109. Would like a call back please. Pt callback #[phone] documented in this encounter Plan of Treatment Not on file documented as of this encounter Visit Diagnoses Not on filedocumented in this encounter Care Teams Dent Remover Relationship Specialty Start Date End Date Murali Silva MD [address] [place] [address] PCP - General 03/03/18 12/31/21 Gurvinder Renteria MD [address] [facility] [address] [place] [address] PCP - General 01/01/22 Karime Aguilera RN 05/07/18 documented as of this encounter
--- OUTSIDE RECORDS SUMMARY | 2024-12-13 23:03 | XMS_ITS | Patient Health Summary ---
Author Organization [facility] Address [address] [place] [address] Care Team Providers Care Pharmacy District Manager Name Role Phone Karime Aguliera RN, Haresh K MD Primary Care Provider [phone] Note from [facility],non-owned Affiliates and Associated Physician Practices is amultiple site organization consisting of ambulatory clinics and hospital sitesin [place], [place], [place] and [place]. This disclosure is being madepursuant to the Care Everywhere program and may not contain all information available regarding this patient. Last updated 18.[facility] Allergies * Aspirin(Nausea and/or Vomiting) -High Criticality * Ticagrelor(Shortness of Breath) -High Criticality * Codeine(GI Discomfort) * Morphine(Swelling) Medications * Be aware that medications may not be up to date on this document. Alwaysverify current medications with the patient. * rOPINIRole (REQUIP) 3 MG tablet(Started 02/01/2018) TK 1 T PO hs 6 refills left * nicotine polacrilex (COMMIT) 4 MG lozenge(Started 01/11/2018) Reasons: Nicotine Addiction 3 refills left * naproxen (NAPROSYN) 500 MG tablet(Started 02/01/2018) TK 1 T PO TID AFTER MEALS 6 refills left * insulin syringe-needle (BD ULTRAFINE II) 31G X 04/01 0.5 ML syringe(Started 01/05/2018) U TID 6 refills left * lisinopril (PRINIVIL; ZESTRIL) 20 MG tablet(Started 01/26/2018) TK 1 T PO D 6 refills left * metFORMIN (GLUCOPHAGE) 500 MG tablet(Started 02/01/2018) TK 1 T PO BID 6 refills left * LANTUS vial(Started 01/30/2018) ADM 20 UNI SC BID 6 refills left * gabapentin (NEURONTIN) 300 MG capsule(Started 02/01/2018) TK 1 C PO TID WC 6 refills left * citalopram (CELEXA) 40 MG tablet(Started 02/01/2018) TK 1 T PO D PRN 6 refills left * fluticasone-salmeterol 232-14 MCG/ACT inhaler(Started 02/16/2018) INL 2 PFS PO BID UTD 6 refills left * atorvastatin (LIPITOR) 40 MG tablet(Started 01/27/2018) TK 1 T PO QD 5 refills left * albuterol (PROVENTIL;VENTOLIN) (2.5 MG/3ML) 0.083% nebulizer solution(Started 01/05/2018) USE 1 VIAL IN NEB TID UTD 6 refills left * VENTOLIN HFA 108 (90 BASE) MCG/ACT inhaler(Started 12/22/2017) INL 2 PFS PO Q 4 H PRN 3 refills left * insulin lispro protamine & lispro (HUMALOG MIX 75/25) vial Inject 20 Units subcutaneously once daily * docusate sodium (COLACE) 100 MG capsule(Started 05/08/2018) Take 1 capsule by mouth 2 times daily 1 refill remaining * Blood Glucose Monitoring Suppl (Booodl VERIO FLEX SYSTEM) w/Device KIT (Started 01/08/2022) * TRULICITY 1.5 MG/0.5ML injection(Started 03/11/2022) * ergocalciferol (DRISDOL) 1.25 MG (60338 UT) capsule ergocalciferol (vitamin D2) 1,250 mcg (50,000 unit) capsule TAKE 1 CAPSULE BY MOUTH WEEKLY * famotidine (PEPCID) 40 MG tablet(Started 03/03/2022) * gabapentin (NEURONTIN) 800 MG tablet(Started 03/10/2022) * ONETOUCH VERIO test strip(Started 03/06/2022) * hydroCHLOROthiazide (HYDRODIURIL) 25 MG tablet(Started 03/03/2022) * HYDROcodone-acetaminophen (NORCO) 5-325 MG tablet(Started 03/13/2022) * insulin lispro (HUMALOG;ADMELOG) 100 UNIT/ML pen(Started 09/26/2021) USE PER MD SLIDING SCALE PROTOCOL. 2 PENS MUST LAST 90 DAYS * venlafaxine XR 24hr (EFFEXOR XR) 75 MG capsule(Started 01/15/2022) * SUMAtriptan (IMITREX) 50 MG tablet(Started 04/02/2021) * QUEtiapine (SEROQUEL) 50 MG tablet(Started 02/25/2022) Take 50 mg by mouth at bedtime * oxybutynin CR 24hr (DITROPAN-XL) 10 MG tablet Take 10 mg by mouth once daily * ibuprofen (MOTRIN) 600 MG tablet(Started 04/04/2022) Take 1 (one) tablet by mouth every 6 hours as needed for Pain * acetaminophen (TYLENOL) 325 MG tablet(Started 04/04/2022) Take 2 (two) tablets by mouth every 6 hours as needed for Fever or Pain Maximum allowable Acetaminophen amount = 4 Grams (4000 mg) / 24 hours. * triamcinolone acetonide (Kenalog) 0.1 % ointment(Started 04/14/2024) Apply to affected areas over legs up to twice daily as needed for rash/itch. Avoid on face/armpits/groin. Limit use to up to 2 weeks per month. 30 day supply. 1 refill by 04/14/2025 Active Problems Problem Noted Date Diagnosed Date Vulvar lesion 03/15/2022 Pre-op testing 05/07/2018 HGSIL (high grade squamous i ntraepithelial lesion) on Pap smear of cervix 05/07/2018 Endometrium, hyperplasia 05/07/2018 S/P vaginal hysterectomy 05/07/2018 Immunizations * FLU VACCINE QUAD IIV4 SPLIT 0.25 ML IM(Given 09/08/2018, 07/25/2017) Social History Tobacco Use Types Packs/Day Years [...] Mass Index 60.58 03/24/2024 2:20 PM CDT Procedures * CA TANGNTL BX SKIN SINGLE LES(Performed 04/14/2024) Performed for Neoplasm of uncertain behavior of skin * DERMATOPATHOLOGY(Performed 04/14/2024) Performed for Neoplasm of uncertain behavior of skin * PAP IMAGE-GUIDED W HPV(Performed 03/24/2024) Performed for Encounter for gynecological examination without abnormal finding * HPV DETECTION HIGH RISK FRANCISCA(Performed 03/24/2024) Performed for Encounter for gynecological examination without abnormal finding * CARDIAC RHYTHM STRIP ORDER(Performed 04/09/2022) * GLUCOSE - POINT OF CARE(Performed 04/04/2022) * PATHOLOGY TISSUE EXAM (STL)(Performed 04/04/2022) Performed for Diagnosis unknown * BIOPSY/EXCISION LYMPH NODE(Performed 04/04/2022) Performed for Diagnosis unknown * GLUCOSE - POINT OF CARE(Performed 04/04/2022) * COMPREHENSIVE METABOLIC PANEL(Performed 04/04/2022) Performed for Pre-op testing * CBC W AUTO DIFFERENTIAL(Performed 04/04/2022) Performed for Pre-op testing * EKG 12-LEAD(Performed 04/04/2022) Performed for Pre-op testing * CA ENDOSCOPIC INJECTION/IMPLANT(Performed 06/03/2018) Performed for Intrinsic sphincter deficiency * CA SYNTHETIC IMPLNT URINARY 1ML(Performed 06/03/2018) Performed for Intrinsic sphincter deficiency * CA ELECTRO-UROFLOWMETRY, FIRST(Performed 06/03/2018) Performed for Intrinsic sphincter deficiency, Decreased bladder capacity * CA CYSTOMETROGRAM W/GARMENT TAG STRINGER&UP(Performed 06/03/2018) Performed for Intrinsic sphincter deficiency, Decreased bladder capacity * CARDIAC RHYTHM STRIP ORDER(Performed 05/12/2018) * GLUCOSE - POINT OF CARE(Performed 05/08/2018) * GLUCOSE - POINT OF CARE(Performed 05/08/2018) * GLUCOSE FASTING(Performed 05/08/2018) Performed for S/P vaginal hysterectomy * HEMOGLOBIN A1C(Performed 05/08/2018) Performed for S/P vaginal hysterectomy * GLUCOSE - POINT OF CARE(Performed 05/07/2018) * GLUCOSE - POINT OF CARE(Performed 05/07/2018) * GLUCOSE - POINT OF CARE(Performed 05/07/2018) * GLUCOSE - POINT OF CARE(Performed 05/07/2018) * PATHOLOGY TISSUE EXAM (STL)(Performed 05/07/2018) Performed for Diagnosis unknown * BLOOD TYPE VERIFICATION(Performed 05/07/2018) * ENDOTRACHEAL TUBE NOTE(Performed 05/07/2018) * HYSTERECTOMY VAGINAL (TVH)(Performed 05/07/2018) Performed for Diagnosis unknown * TYPE + SCREEN PANEL(Performed 05/07/2018) Performed for Pre-op testing * BASIC METABOLIC PANEL (CALCIUM TOTAL)(Performed 05/07/2018) Performed for Pre-op testing * CBC W/O DIFFERENTIAL(Performed 05/07/2018) Performed for Pre-op testing * GLUCOSE - POINT OF CARE(Performed 05/07/2018) * URINALYSIS - POINT OF CARE (AMB) [facility](Performed 04/21/2018) Performed for Urinary frequency, Nocturia Results * CA TANGNTL BX SKIN SINGLE LES (04/14/2024 11:53 AM CDT) Narrative Rosalino Gibson MD - 04/14/2024 11:53 AM CDT Rosalino Gibson MD ? 04/14/2024 ??2:33 PM Risks, benefits and alternatives to shave biopsy were discussed with the patient. Verbal consent was obtained. Encounter Diagnoses Name Primary? Neoplasm of uncertain behavior of skin Yes Actinic skin damage ?? Stasis dermatitis of both legs ?? Location: Left pre-auricular Lesion size: 1.1 cm Shave removal performed today Skin prep: Alcohol Anesthesia: 1% lidocaine with epinephrine 1:100,000 buffered with sodium bicarbonate 8.4% in a 1:10 ratio, 1 mL used in total Hemostasis: Aluminum chloride Dressing and wound care discussed. Specimen(s) placed in a patient labeled container and sent to [facility] Dermatopathology. Patient agrees to phone call for results and message if not available. Danielle Dockery, PGY-4 Dermatology Resident Rosalino Gibson MD PROCEDURE/MINOR SURG ICAL ORDERABLES * DERMATOPATHOLOGY (04/14/2024 10:35 AM CDT) Case Report Dermatopathology Report ? Case: [id number] ? Authorizing Provider: ??Rosalino Gibson MD ?Collected: ? 04/14/2024 10:35 AM ? Ordering Location: ? [facility] - ??Received: ?04/14/2024 12:04 PM ? Dermatology ? Pathologist: ? Marion Townsend MD ? Specimen: ?Skin, left preauricular ? 4 3:46 PM CDT DERMATOPATHOLOGY LABORATORY Final Diagnosis Specimen A. SKIN, left preauricular: SEBORRHEIC KERATOSIS, IRRITATED AND INFLAMED (L82.0) 3:46 PM CDT DERMATOPATHOLOGY LABORATORY Clinical History ISK vs Nevus. 3:46 PM CDT DERMATOPATHOLOGY LABORATORY Gross Description Specimen A: Received is one formalin filled container labeled with the patient's name and designated left preauricular. The specimen consists of a shave biopsy measuring 10x8x3 mm. Jar 0. 3:46 PM CDT DERMATOPATHOLOGY LABORATORY Microscopic Description Specimen A. SKIN, left preauricular: Sections show acanthosis, papillomatosis, hyperkeratosis, and squamous eddies. There is a lymphohistiocytic infiltrate within the papillary dermis. 3:46 PM CDT DERMATOPATHOLOGY LABORATORY Disclaimer An external and internal positive and negative controls are appropriate for the histochemical, immunohistochemical and immunofluorescence stain(s) in this case (if any), except where stated explicitly. The performance characteristics of the stain(s) cited in this report were developed and its performance characteristic determined by the Dermatopathology Laboratory at [facility], directed by Dr. Mary Townsend. These tests need not be, and therefore are not, approved by the [place] Food and Drug Administration. The tests are used for clinical purposes. Billing Codes Specimen Charges Stain Charges 36258 1 4 3:46 PM CDT DERMATOPATHOLOGY LABORATORY Embedded Images 3:46 PM CDT DERMATOPATHOLOGY LABORATORY Pathology/Cytolo gy TISSUE SPECIMEN FROM SKIN / Unknown 04/14/2024 10:35 AM CDT 04/14/2024 12:04 PM CDT Rosalino Gibson MD LAB - PATHOLOGY/CYTO LOGY ORDERABLES Performing Organization Address [facility] Co de Phone Number DERMATOPATHOLOGY LABORATORY [facility] Department of Dermatology [facility] [address] [place] [address], [facility] [phone] * HPV DETECTION HIGH RISK FRANCISCA (03/24/2024 3:16 PM CDT) High Risk Human Papilloma Result Not detected Not detected 03/30/2024 4:19 AM CDT [facility] High Risk Human Papilloma Interp 03/30/2024 4:19 AM CDT [facility] Comment:High Risk Human Jamaal lloma Virus was Not Detected. Pathology/Cytolo gy ENTIRE VAGINA / Unknown 03/24/2024 3:16 PM CDT 03/25/2024 11:47 AM CDT Narrative [facility] - 03/30/2024 4:19 AM CDT Nucleic acid isolated from the specimen was analyzed with a nucleic acid amplification test (FDA approved Gen-Probe HPV Assay) to detect high risk human papilloma virus (Types: 16, 18, 31, 33, 35, 39, 45, 51, 52, 56, 58, 59, 66, and 68). ??The reference range is Not Detected . Comment: These test results should not be used as the sole basis for clinical assessment and treatment of patients. ??These results should always be correlated with other available data (cytology, histology, and clinical information). Christy Khan MD LAB - MICROBIOLOGY O RDERABLES Performing Organization Address [facility]/ZIP Co de Phone Number [facility] [address] [place] [address], [facility] [phone] * PAP IMAGE-GUIDED W HPV (03/24/2024 3:16 PM CDT) Case Report Gynecologic Cytology Report ? Case: [id number] ? Authorizing Provider: ??Christy Khan, ?Collected: ? 03/24/2024 03:16 PM ? Ordering Location: ? [facility] - ??Received: ?03/25/2024 11:47 AM ? APPLICATION SERVICES MANAGER ? First Screen: ?Destiny, Carlos Burnette ? Rescreen: ?Politte, Dawson ? Specimen: ?THINPREP - IMAGE GUIDED, Vagina ? 03/26/2024 3:24 PM CDT [facility] LMP none 03/26/2024 3:24 PM CDT [facility] Menstrual Status Hysterectomy 2023 3:24 PM CDT [facility] Specimen Adequacy Satisfactory for evaluation. 03/26/2024 3:24 PM CDT [facility] Categorization Negative for intraepithelial lesion or malignancy. 03/26/2024 3:24 PM CDT [facility] Interpretation ANESTHESIOLOGY CRNA Negative for intraepithelial lesion or malignancy. 03/26/2024 3:24 PM CDT [facility] Pap Footnote The Pap Smear is a screening test. False positive and false negative results occur. Negative results do not preclude abnormalities, thus clinical correlation is required. This specimen was evaluated by the [facility] along with an additional manual rescreening by a supervisor public health nursing and/or pathologist. 03/26/2024 3:24 PM CDT [facility] Embedded Images 3:24 PM CDT [facility] Pathology/Cytolo gy ENTIRE VAGINA / Unknown 03/24/2024 3:16 PM CDT 03/25/2024 11:47 AM CDT Christy Khan MD LAB - PATHOLOGY/CYTO LOGY ORDERABLES [facility] [address] [phone] * CARDIAC RHYTHM STRIP ORDER (04/09/2022 10:19 AM CDT) Only the most recent of2 resultswithin the time period is included. Narrative 04/09/2022 10:19 AM CDT Ordered by an unspecified provider. Scanned Document CARDIAC SERVICES ORD ERABLES * GLUCOSE - POINT OF CARE (04/04/2022 8:36 AM CDT) Only the most recent of9 resultswithin the time period is included. Glucose WB/POC 84 70 - 106 mg/dL 04/04/2022 8:46 AM CDT [facility] Specimen Type Cap Fingerstick 2021 8:46 AM CDT [facility] Blood BLOOD SPECIMEN / Unknown 04/04/2022 8:36 AM CDT 04/04/2022 8:46 AM CDT Tin Khan MD LAB - POINT OF CARE ORDERABLES [facility] [address] [place] [address] * PATHOLOGY TISSUE EXAM (STL) (04/04/2022 7:57 AM CDT) Only the most recent of2 resultswithin the time period is included. Case Report Surgical Pathology Report ? Case: [id number] ? Authorizing Provider: ??Tin Khan MD ? Collected: ? 04/04/2022 07:57 AM ? Ordering Location: ? [facility] ? Received: ?04/04/2022 08:41 AM ? Pathologist: ? Roe Burrows MD ? Specimen: ?Lesion, Left Mons Skin Lesion ? 04/08/2022 5:53 PM CDT [facility] Final Diagnosis Skin, left mons pubis, excision: 1. Squamous cell carcinoma in situ, p16 positive, completely excised 04/08/2022 5:53 PM CDT [facility] Clinical History Lesion on the left side of her pannus of unknown etiology, more than likely basal cell cancer. 04/08/2022 5:53 PM [facility] Gross Description The requisition and specimen are identified with the patient's name, Juliann Moody. Received in formalin, specimen A , left mons skin surgery is an 8.0 x 3.8 x 0.5 cm unoriented elliptical piece of brown-luciano skin tissue. One edge of ellipse and underlying half of resected surface is inked blue and the opposite edge and underlying resection surface is inked green. The mid point of blue ink edge is designated as 12 o'clock position. A 3.8 x 3.3 cm dark brown macule of skin roughening is present in the center, 0.3 cm from presumed 12:00, 0.4 cm from 6:00, 2.1 cm from 3:00 and 2.5 cm from 9:00. The specimen is serially sectioned from 9:00 to 3:00 revealing luciano cut surface the skin lesion with yellow-luciano lobular underlying subcutaneous tissue. The skin lesion is minimally 0.2 cm from the deep margin. Furnace Charging Machine Operator sections are submitted as follows: A1 margin at 9:00 and section next to skin lesion, A2-A11 skin lesion from 9:00 to 3:00 (entirely and sequentially submitted), A12 3:00 margin and sections adjacent to skin lesion. IY 04/08/2022 5:53 PM [facility] Microscopic Description Multiple levels of blocks A1, A5, A6, A8, and A9 help confirm that the squamous cell carcinoma in-situ does not extend to the inked deep and lateral margins. p16 (control appropriate) immunostain identifies block-like strong diffuse staining of the carcinoma in situ. 04/08/2022 5:53 PM [facility] Disclaimer All histochemical and/or immunohistochemical results are interpreted with controls that demonstrate appropriate staining reactions before reporting results. Note on use of immunocytochemistry reagents: This test was developed and its performance characteristic determined by [facility], Department of Laboratory Medicine. It has not been cleared or approved by the U.S. Food and Drug Administration (FDA). The FDA has determined that such clearance or approval is not necessary. The test is used for clinical purpose. It should not be regarded as investigational or for research. This laboratory is certified to perform high complexity testing. The performance characteristics of the IHC/HONG assays have been validated on formalin-fixed paraffin embedded tissues only. The assays have not been validated on decalcified tissues. Results should be interpreted with caution. 04/08/2022 5:53 PM CDT [facility] Embedded Images 04/08/2022 5:53 PM CDT [facility] Pathology/Cytolo gy LESION SPECIMEN / Unknown 04/04/2022 7:57 AM CDT 04/04/2022 8:41 AM CDT Comment:Pre-op diagnosis: Diagnosis unknown [R69] Tin Khan MD LAB - PATHOLOGY/CYT OLOGY ORDERABLES Performing Organization Address City/State/[facility] Co de Phone Number [facility] [address], [place] [id number] * (ABNORMAL) CBC W AUTO DIFFERENTIAL (04/04/2022 6:14 AM CDT) WBC 12.0(H) 4.4 - 10.7 x10E9/L 04/04/2022 6:30 AM CDT [facility] WBC Corrected 04/04/2022 6:30 AM CDT [facility] RBC 5.82(H) 3.80 - 5.20 x10E12/L 04/04/2022 6:30 AM CDT [facility] Hemoglobin 15.6 12.0 - 15.6 gm/dL 04/04/2022 6:30 AM T [facility] Hematocrit 49.5(H) 35.9 - 45.5 % 04/04/2022 6:30 AM CDT [facility] MCV 85.1 80.7 - 98.3 fl 04/04/2022 6:30 AM CDT [facility] MCH 26.8 26.7 - 34.0 pg 04/04/2022 6:30 AM CDT [facility] MCHC 31.5 30.8 - 35.9 gm/dL 04/04/2022 6:30 AM CDT [facility] Platelet Count 291 153 - 416 x10E9/L 04/04/2022 6:30 AM CDT [facility] RDW-CV 15.8(H) 12.1 - 14.9 % 04/04/2022 6:30 AM CDT [facility] MPV 9.4 9.4 - 12.9 fl 04/04/2022 6:30 AM CDT [facility] Neutrophils % 68.5 44.0 - 73.0 % 04/04/2022 6:30 AM CDT [facility] Lymphocytes % 21.7 20.0 - 43.0 % 04/04/2022 6:30 AM T [facility] Monocytes % 6.4 5.0 - 13.0 % 04/04/2022 6:30 AM T [facility] Eosinophils % 1.9 0.0 - 6.0 % 04/04/2022 6:30 AM CDT [facility] Basophils % 0.7 0.0 - 2.0 % 04/04/2022 6:30 AM T [facility] Immature Granulocytes 0.8 0 - 1 % 04/04/2022 6:30 AM [facility] Neutrophil Absolute 8.18(H) 2.01 - 7.14 x10E9/L 04/04/2022 6:30 AM T [facility] Lymphocytes Absolute 2.60 1.07 - 3.94 x10E9/L 04/04/2022 6:30 AM CDT [facility] Monocytes Absolute 0.77 0.26 - 1.07 x10E9/L 04/04/2022 6:30 AM T [facility] Eosinophils Absolute 0.23 0 - 0.47 x10E9/L 04/04/2022 6:30 AM [facility] Basophils Absolute 0.08 0 - 0.08 x10E9/L 04/04/2022 6:30 AM T [facility] Immature Granulocytes Absolute 0.10(H) 0.00 - 0.06 x10E9/L 04/04/2022 6:30 AM CDT [facility] nRBC Auto 0 /100 WBC 04/04/2022 6:30 AM [facility] Blood BLOOD SPECIMEN / Unknown Venipuncture / Unknown 04/04/2022 6:14 AM CDT 04/04/2022 6:21 AM CDT Tin Khan MD LAB - HEMATOLOGY OR DERABLES [facility] [address] [place] [address] * (ABNORMAL) COMPREHENSIVE METABOLIC PANEL (04/04/2022 6:14 AM CDT) Glucose 81 70 - 105 mg/dL 04/04/2022 6:49 AM CDT [facility] Sodium 140 136 - 145 mmol/L 04/04/2022 6:49 AM CDT [facility] Potassium 4.5 3.5 - 5.1 mmol/L 04/04/2022 6:49 AM CDT [facility] Chloride 105 98 - 107 mmol/L 04/04/2022 6:49 AM CDT [facility] CO2 23 23 - 31 mmol/L 04/04/2022 6:49 AM CDT [facility] Calcium 8.9 8.4 - 10.4 mg/dL 04/04/2022 6:49 AM CDT [facility] Anion Gap 12 8 - 18 mmol/L 04/04/2022 6:49 AM CDT [facility] BUN 21(H) 9.8 - 20.1 mg/dL 04/04/2022 6:49 AM CDT [facility] Creatinine 0.88 0.57 - 1.11 mg/dL 04/04/2022 6:49 AM CDT [facility] Alkaline Phosphatase 95 40 - 150 U/L 04/04/2022 6:49 AM CDT [facility] ALT 13 0 - 61 U/L 04/04/2022 6:49 AM CDT [facility] AST 12 5 - 34 U/L 04/04/2022 6:49 AM CDT [facility] Protein Total 7.1 6.4 - 8.3 gm/dL 04/04/2022 6:49 AM CDT [facility] Albumin 3.7 3.2 - 4.6 gm/dL 04/04/2022 6:49 AM CDT [facility] Bilirubin Total 0.4 0.2 - 1.2 mg/dL 04/04/2022 6:49 AM CDT [facility] eGFR by CKD-EPI 75(L) >=90 mL/min/1.7 3 m2 04/04/2022 6:49 AM CDT [facility] Blood BLOOD SPECIMEN / Unknown Venipuncture / Unknown 04/04/2022 6:14 AM CDT 04/04/2022 6:21 AM CDT Tin Khan MD LAB - CHEMISTRY ORD ERABLES Performing Organization Address [facility] Co de Phone Number [facility] [address] [place] [address] * EKG 12-LEAD (04/04/2022 6:04 AM CDT) Ventricular Rate 64 BPM [facility] Atrial Rate 64 BPM [facility] P-R Interval 188 ms [facility] QRS Duration ms 92 ms [facility] Q-T Interval ms 416 ms [facility] QTC Calculation (Bezet) 429 ms [facility] Calculated P [place] 35 degrees [facility] Calculated R [place] -19 degrees [facility] Calculated T [place] 84 degrees [facility] Interpretation EKG NORMAL SINUS RHYTHM POOR R WAVE PROGRESSION BORDERLINE ECG NO PREVIOUS ECGS AVAILABLE Confirmed by Kirill Mckinnon ([id number]) on 04/04/2022 7:08:28 AM [facility] 04/04/2022 6:04 AM CDT 04/04/2022 7:08 AM CDT Tin Khan MD ECG ORDERABLES Performing Organization Address [facility] Phone Number [facility] * CA SYNTHETIC IMPLNT URINARY 1ML, CA ENDOSCOPIC INJECTION/IMPLANT (06/03/2018 8:47 PM CDT) Narrative Kirill Cordova MD - 06/03/2018 8:47 PM CDT Kirill Cordova MD ? 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 Procedure Details: The patient had been seen and diagnosed with intrinsic sphincteric deficiency. Her options were discussed, and she was offered periurethral bulking. Her risks, benefits, and alternatives were discussed with emphasis on the possibility of failure, infection and difficulty urinating. She had urodynamic findings consistent with intrinsic sphincteric deficiency with a valsalva leak point pressure (VLPP) of less than or equal to 100 cm of water. If offered contingent, she had been allergy tested with contingent at least 30 days prior to the procedure and did not have an allergic reaction. The patient was placed in a supine position in the procedure chair in the urodynamic suite. Her urethra was prepped with Betadine unless she was allergic to topical iodine. Her bladder was then emptied of the residual urine and tested for an infection via dipstick. If negative, the procedure continued. A 15 degree rigid cystoscopy using the [employer] injection system was used with a non-coring disposable needle to apply the material. It was placed in 3 points, at 6,12 and 2 o'clock. There was good hemostasis. The total amount of material used was 1 cc of coaptite. The lot number was [id number], and the expiration date was 07/08/20. She tolerated the procedure and was allowed to void in the bathroom. She was able to do so easily and was discharged from the office with detailed instructions. Condition: Good Plan: The patient was advised to void every 2 hours at least in the next 6 hours. She was asked to call if unable to void, has pain, has a fever or with any concerns. She will follow up in 1 weeks by phone. Kirill Cordova MD PROCEDURE/MINOR SURG ICAL ORDERABLES * CA CYSTOMETROGRAM W/GARMENT TAG STRINGER&UP, CA ELECTRO-UROFLOWMETRY, FIRST (06/03/2018 8:45 PM CDT) Narrative Kirill Cordova MD - 06/03/2018 8:45 PM CDT Kirill Cordova MD ? 06/03/2018 ??8:45 PM Multichannel Urodynamic Testing - Brief Procedure Note Please see report generated in Media files Post-Operative Diagnosis: intrinsic sphincter deficiency and decreased bladder capacity Indications: Multichannel urodynamic testing is being performed to fully evaluate the patient's voiding dysfunction. The risks, benefits and alternatives have been discussed with emphasis on discomfort and urinary tract infections. Her urinalysis was not suspicious for a urinary tract infection unless otherwise noted. UROFLOW: Uroflowmetry was performed. ??Max flow was 58 ml / sec. Flow pattern: ??prolonged with valsalva PVR 5 ml Procedure Details: The patient's urethral meatus was cleaned with Betadine (used if not allergic to topical iodine, otherwise hibiclens was used). A 7 Fr. Single sensor air-charged catheter was place into the vagina or into the rectum if the pelvic prolapse required restitution for adequate testing. A 7 Fr. Dual sensor air-charged catheter was inserted into the urethra. During testing, the patient's prolapse was reduced with either procto-swabs, or digitally. Cystometrogram: The bladder was filled with room temperature water at a rate of 100 cc per minute. The patient tolerated this and she was found to have: Sensory Urgency yes Maximal cystometric capacity of 305 cc. She does have normal bladder compliance. She does not have loss of urine with a rise in detrusor pressure. Urodynamic Stress Urinary incontinence? yes UPP done? yes; ??>20 cm H2O yes VLPP Positive yes; Abnormal yes VLPP 45, 61 cm H2O Voiding pressure study (GARMENT TAG STRINGER): She voided via urethral relaxation and valsalva. Obstructive pattern? ??no Her post void residual by calculation during the voiding pressure study was 54 cc. Kirill Cordova MD PROCEDURE/MINOR SURG ICAL ORDERABLES * (ABNORMAL) HEMOGLOBIN A1C (05/08/2018 2:40 AM CDT) [facility] Hemoglobin A1c 9.0(H) 4.2 - 6.3 % 05/08/2018 3:12 AM CDT [facility] Estimated Average Glucose 212 mg/dL 05/08/2018 3:12 AM CDT [facility] Whole Blood BLOOD SPECIMEN WITH EDTA / Unknown Venipuncture / Unknown 05/08/2018 2:40 AM CDT 05/08/2018 2:43 AM CDT Jennifer Springer MD LAB - CHEMISTRY MEAGAN BARRIGA [facility] Organization Address City/State/ZIP Co de Phone Number [facility] [address] [place] [address] * (ABNORMAL) GLUCOSE FASTING (05/08/2018 2:40 AM CDT) [facility] Glucose Fasting 212(H) 74 - 106 mg/dL 05/08/2018 3:09 AM CDT [facility] Blood BLOOD SPECIMEN / Unknown Venipuncture / Unknown 05/08/2018 2:40 AM CDT 05/08/2018 2:44 AM CDT Jennifer Springer MD LAB - CHEMISTRY MEAGAN BARRIGA Performing Organization Address [facility]/ZIP Co de Phone Number [facility] [address] [place] [address] * BLOOD TYPE VERIFICATION (05/07/2018 8:31 AM CDT) ABO O 05/07/2018 8:36 AM CDT [facility] Rh Type Negative 05/07/2018 8:36 AM CDT [facility] Blood Bank BLOOD SPECIMEN / Unknown No Charge Blood Draw / Unknown 05/07/2018 8:31 AM CDT 05/07/2018 8:31 AM CDT Christy Khan MD LAB - BLOOD BANK [place] [facility] Performing Organization Address [facility] Co de Phone Number [facility] [address] [place] [address] * TYPE + SCREEN PANEL (05/07/2018 6:50 AM CDT) ABO O 05/07/2018 8:35 AM CDT [facility] Rh Type Negative 05/07/2018 8:35 AM CDT [facility] Antibody Screen Negative 05/07/2018 8:35 AM CDT [facility] Blood Bank BLOOD SPECIMEN / Unknown Venipuncture / Unknown 05/07/2018 6:50 AM CDT 05/07/2018 8:28 AM CDT Christy Khan MD LAB - BLOOD BANK ORD MARCELINO Performing Organization Address City/[facility]/ZIP Co de Phone Number [facility] [address] [place] [address] * (ABNORMAL) CBC W/O DIFFERENTIAL (05/07/2018 6:50 AM CDT) Pathologist [facility] WBC 11.3(H) 4.4 - 10.7 x10E9/L 05/07/2018 7:21 AM CDT [facility] RBC 5.27(H) 3.80 - 5.20 x10E12/L 05/07/2018 7:21 AM CDT [facility] Hemoglobin 15.5 12.0 - 15.6 gm/dL 05/07/2018 7:21 AM CDT [facility] Hematocrit 47.7(H) 35.9 - 45.5 % 05/07/2018 7:21 AM CDT [facility] MCV 90.5 80.7 - 98.3 fl 05/07/2018 7:21 AM CDT [facility] MCH 29.4 26.7 - 34.0 pg 05/07/2018 7:21 AM CDT [facility] MCHC 32.5 30.8 - 35.9 gm/dL 05/07/2018 7:21 AM CDT [facility] Platelet Count 202 153 - 416 x10E9/L 05/07/2018 7:21 AM CDT [facility] RDW-CV 14.3 12.1 - 14.9 % 05/07/2018 7:21 AM CDT [facility] MPV 10.2 9.4 - 12.9 fl 05/07/2018 7:21 AM CDT [facility] Blood BLOOD SPECIMEN / Unknown Venipuncture / Unknown 05/07/2018 6:50 AM CDT 05/07/2018 7:13 AM CDT Christy Khan MD LAB - HEMATOLOGY ORD ERABLES Performing Organization Address City/State/[facility] Co de Phone Number [facility] [address] [place] [address] * (ABNORMAL) BASIC METABOLIC PANEL (CALCIUM TOTAL) (05/07/2018 6:50 AM CDT) Glucose 154(H) 74 - 106 mg/dL 05/07/2018 7:34 AM CDT [facility] Sodium 142 136 - 145 mmol/L 05/07/2018 7:34 AM CDT [facility] Potassium 4.3 3.5 - 5.1 mmol/L 05/07/2018 7:34 AM CDT [facility] Chloride 108(H) 98 - 107 mmol/L 05/07/2018 7:34 AM CDT [facility] CO2 28 22 - 31 mmol/L 05/07/2018 7:34 AM CDT [facility] Calcium 9.0 8.5 - 10.1 mg/dL 05/07/2018 7:34 AM CDT [facility] Anion Gap 6(L) 8 - 16 mmol/L 05/07/2018 7:34 AM CDT [facility] BUN 13 7 - 21 mg/dL 05/07/2018 7:34 AM CDT [facility] Creatinine 0.56 0.50 - 1.30 mg/dL 05/07/2018 7:34 AM CDT [facility] eGFR by MDRD >60 >60 mL/min/1.7 3m2 05/07/2018 7:34 AM CDT [facility] eGFR by MDRD >60 >60 mL/min/1.7 3m2 05/07/2018 7:34 AM CDT [facility] Blood BLOOD SPECIMEN / Unknown Venipuncture / Unknown 05/07/2018 6:50 AM CDT 05/07/2018 7:13 AM CDT Christy Khan MD LAB - CHEMISTRY MEAGAN BARRIGA [facility] Organization Address City/State/[facility] Co de Phone Number [facility] [address] [place] [address] * URINALYSIS - POINT OF CARE (AMB) [facility] (04/21/2018) Specific [place] UA 1.000 pH UA 5 WBC UA neg Nitrite UA neg Protein UA neg Glucose UA 200 Ketones UA POCT neg Urobilinogen UA neg Bilirubin UA POCT neg Blood Urine POCT neg Urine URINE / Unknown 04/21/2018 Kirill Cordova MD LAB - POINT OF CARE ORDERABLES Care Teams Pharmacy District Manager Relationship Specialty Start Date End Date Gurvinder Renteria MD [address] [place] [address] PCP - General 01/01/22 Karime Aguilera RN 05/07/18
[2024-12-14] VITALS (25 sets, daily range): BP systolic 93–170; BP diastolic 64–90; PULSE 71–81; RESP 14–20; TEMP 35.9–36.4; O2SAT 95–100; BMI 61.7
--- OUTSIDE RECORDS SUMMARY | 2024-12-14 03:36 | XMS_ITS | Patient Health Summary ---
Author Organization [facility] Address [address] [place] [address] Care Team Providers Care Compliance Examiner Name Role Phone Karime Aguilera RN, Haresh K MD Primary Care Provider [phone] Note from [facility],non-owned Affiliates and Associated Physician Practices is amultiple site organization consisting of ambulatory clinics and hospital sitesin [place], [place], [place] and [place]. This disclosure is being madepursuant to the Care Everywhere program and may not contain all information available regarding this patient. Last updated 18.[facility] Allergies * Aspirin(Nausea and/or Vomiting) [...] refill remaining * Blood Glucose Monitoring Suppl ([employer] VERIO FLEX SYSTEM) w/Device KIT (Started 01/08/2022) * TRULICITY 1.5 MG/0.5ML injection(Started 03/11/2022) * ergocalciferol (DRISDOL) 1.25 MG (40619 UT) capsule ergocalciferol (vitamin D2) 1,250 mcg [...] 60.58 03/24/2024 2:20 PM CDT Procedures * MO TANGNTL BX SKIN SINGLE LES(Performed 04/14/2024) Performed [...] 12-LEAD(Performed 04/04/2022) Performed for Pre-op testing * MO ENDOSCOPIC INJECTION/IMPLANT(Performed 06/03/2018) Performed for Intrinsic sphincter deficiency * MO SYNTHETIC IMPLNT URINARY 1ML(Performed 06/03/2018) Performed for Intrinsic sphincter deficiency * MO ELECTRO-UROFLOWMETRY, FIRST(Performed 06/03/2018) Performed for Intrinsic sphincter deficiency, Decreased bladder capacity * MO CYSTOMETROGRAM W/CLINICAL RN&UP(Performed 06/03/2018) Performed for Intrinsic sphincter deficiency, Decreased [...] Performed for Urinary frequency, Nocturia Results * MO TANGNTL BX SKIN SINGLE LES (04/14/2024 11:53 [...] a patient labeled container and sent to [facility]. Patient agrees to phone call for results and message if not available. Danielle Dockery, PGY-4 Dermatology Resident Rosalino Gibson MD PROCEDURE/MINOR SURG ICAL ORDERABLES * DERMATOPATHOLOGY (04/14/2024 10:35 AM CDT) Case Report Dermatopathology Report ? Case: [id number] ? Authorizing Provider: ??Rosalino Gibson MD ?Collected: [...] characteristic determined by the Dermatopathology Laboratory at [facility], directed by Dr. Mary Townsend. These tests need not be, and therefore are not, approved by the [place] Food and Drug Administration. The tests are used for clinical purposes. Billing Codes Specimen Charges Stain Charges 66934 1 4 3:46 PM CDT DERMATOPATHOLOGY LABORATORY Embedded Images 3:46 PM CDT DERMATOPATHOLOGY LABORATORY Pathology/Cytolo gy TISSUE SPECIMEN FROM SKIN / Unknown 04/14/2024 10:35 AM CDT 04/14/2024 12:04 PM CDT Rosalino Gibson MD LAB - PATHOLOGY/CYTO LOGY ORDERABLES Performing Organization Address [facility] Co de Phone Number DERMATOPATHOLOGY LABORATORY [facility] Department of Dermatology [facility] [address], [place]), [address] [place] [address], [facility] [phone] * HPV DETECTION HIGH RISK FRANCISCA (03/24/2024 3:16 PM CDT) High Risk Human Papilloma Result Not detected Not detected 03/30/2024 4:19 AM CDT [facility] High Risk Human Papilloma Interp 03/30/2024 4:19 AM CDT [facility] Comment:High Risk Human Jamaal lloma Virus was Not Detected. Pathology/Cytolo gy ENTIRE VAGINA / Unknown 03/24/2024 3:16 PM CDT 03/25/2024 11:47 AM CDT Narrative [facility] - 03/30/2024 4:19 AM CDT [...] - MICROBIOLOGY O RDERABLES Performing Organization Address [facility]/ZIP Co de Phone Number [facility] [address] [place] [address], [facility] [phone] * PAP IMAGE-GUIDED W HPV (03/24/2024 3:16 PM CDT) Case Report Gynecologic Cytology Report ? Case: [id number] ? Authorizing Provider: ??Christy Khan, ?Collected: ? 03/24/2024 03:16 PM ? Ordering Location: ? [facility] - ??Received: ?03/25/2024 11:47 AM ? CIVIL DEFENSE DIRECTOR ? First Screen: ?Destiny, Carlos Burnette ? [...] lesion or malignancy. 03/26/2024 3:24 PM CDT [facility] Interpretation BUGGYMAN Negative for intraepithelial lesion or malignancy. 03/26/2024 3:24 PM CDT [facility] Pap Footnote The Pap Smear is a screening test. False positive and false negative results occur. Negative results do not preclude abnormalities, thus clinical correlation is required. This specimen was evaluated by the [employer] Imaging System along with an additional manual rescreening by a direct support worker and/or pathologist. 03/26/2024 3:24 PM CDT [facility] Embedded Images 3:24 PM CDT [facility] Pathology/Cytolo gy ENTIRE VAGINA / Unknown 03/24/2024 3:16 PM CDT 03/25/2024 11:47 AM CDT Christy Khan MD LAB - PATHOLOGY/CYTO LOGY ORDERABLES [facility] [address] [phone] * CARDIAC RHYTHM STRIP ORDER (04/09/2022 10:19 [...] - 106 mg/dL 04/04/2022 8:46 AM CDT [facility] Specimen Type Cap Fingerstick 2021 8:46 AM CDT [facility] Blood BLOOD SPECIMEN / Unknown 04/04/2022 8:36 AM CDT 04/04/2022 8:46 AM CDT Tin Khan MD LAB - POINT OF CARE ORDERABLES [facility] [address] [place] [address] * PATHOLOGY TISSUE EXAM (STL) (04/04/2022 7:57 AM CDT) Only the most recent of2 resultswithin the time period is included. Case Report Surgical Pathology Report ? Case: [id number] ? Authorizing Provider: ??Tin Khan MD ? Collected: ? 04/04/2022 07:57 AM ? Ordering Location: ? [facility] ? Received: ?04/04/2022 08:41 AM ? Pathologist: ? Roe Burrows MD ? Specimen: ?Lesion, Left Mons Skin Lesion ? 04/08/2022 5:53 PM CDT [facility] Final Diagnosis Skin, left mons pubis, excision: 1. Squamous cell carcinoma in situ, p16 positive, completely excised 04/08/2022 5:53 PM CDT [facility] Clinical History Lesion on the left side of her pannus of unknown etiology, more than likely basal cell cancer. 04/08/2022 5:53 PM [facility] Gross Description The requisition and specimen [...] minimally 0.2 cm from the deep margin. Shoe Singer sections are submitted as follows: A1 margin at 9:00 and section next to skin lesion, A2-A11 skin lesion from 9:00 to 3:00 (entirely and sequentially submitted), A12 3:00 margin and sections adjacent to skin lesion. IY 04/08/2022 5:53 PM [facility] Microscopic Description Multiple levels of blocks A1, A5, A6, A8, and A9 help confirm that the squamous cell carcinoma in-situ does not extend to the inked deep and lateral margins. p16 (control appropriate) immunostain identifies block-like strong diffuse staining of the carcinoma in situ. 04/08/2022 5:53 PM [facility] Disclaimer All histochemical and/or immunohistochemical results are interpreted with controls that demonstrate appropriate staining reactions before reporting results. Note on use of immunocytochemistry reagents: This test was developed and its performance characteristic determined by [facility], Department of Laboratory Medicine. It has [...] interpreted with caution. 04/08/2022 5:53 PM CDT [facility] Embedded Images 04/08/2022 5:53 PM CDT [facility] Pathology/Cytolo gy LESION SPECIMEN / Unknown 04/04/2022 7:57 AM CDT 04/04/2022 8:41 AM CDT Comment:Pre-op diagnosis: Diagnosis unknown [R69] Tin Khan MD LAB - PATHOLOGY/CYT OLOGY ORDERABLES Performing Organization Address City/State/[facility] Co de Phone Number [facility] [address] [place], [place] [id number] * (ABNORMAL) CBC W AUTO DIFFERENTIAL (04/04/2022 6:14 AM CDT) WBC 12.0(H) 4.4 - 10.7 x10E9/L 04/04/2022 6:30 AM CDT [facility] WBC Corrected 04/04/2022 6:30 AM CDT [facility] RBC 5.82(H) 3.80 - 5.20 x10E12/L 04/04/2022 6:30 AM CDT [facility] Hemoglobin 15.6 12.0 - 15.6 gm/dL 04/04/2022 6:30 AM T [facility] Hematocrit 49.5(H) 35.9 - 45.5 % 04/04/2022 6:30 AM CDT [facility] MCV 85.1 80.7 - 98.3 fl 04/04/2022 6:30 AM CDT [facility] MCH 26.8 26.7 - 34.0 pg 04/04/2022 6:30 AM CDT [facility] MCHC 31.5 30.8 - 35.9 gm/dL 04/04/2022 6:30 AM CDT [facility] Platelet Count 291 153 - 416 x10E9/L 04/04/2022 6:30 AM CDT [facility] RDW-CV 15.8(H) 12.1 - 14.9 % 04/04/2022 6:30 AM CDT [facility] MPV 9.4 9.4 - 12.9 fl 04/04/2022 6:30 AM CDT [facility] Neutrophils % 68.5 44.0 - 73.0 % 04/04/2022 6:30 AM CDT [facility] Lymphocytes % 21.7 20.0 - 43.0 % 04/04/2022 6:30 AM T [facility] Monocytes % 6.4 5.0 - 13.0 % 04/04/2022 6:30 AM T [facility] Eosinophils % 1.9 0.0 - 6.0 % 04/04/2022 6:30 AM CDT [facility] Basophils % 0.7 0.0 - 2.0 % 04/04/2022 6:30 AM T [facility] Immature Granulocytes 0.8 0 - 1 % 04/04/2022 6:30 AM [facility] Neutrophil Absolute 8.18(H) 2.01 - 7.14 x10E9/L 04/04/2022 6:30 AM T [facility] Lymphocytes Absolute 2.60 1.07 - 3.94 x10E9/L 04/04/2022 6:30 AM CDT [facility] Monocytes Absolute 0.77 0.26 - 1.07 x10E9/L 04/04/2022 6:30 AM T [facility] Eosinophils Absolute 0.23 0 - 0.47 x10E9/L 04/04/2022 6:30 AM [facility] Basophils Absolute 0.08 0 - 0.08 x10E9/L 04/04/2022 6:30 AM T [facility] Immature Granulocytes Absolute 0.10(H) 0.00 - 0.06 x10E9/L 04/04/2022 6:30 AM CDT [facility] nRBC Auto 0 /100 WBC 04/04/2022 6:30 AM [facility] Blood BLOOD SPECIMEN / Unknown Venipuncture / Unknown 04/04/2022 6:14 AM CDT 04/04/2022 6:21 AM CDT Tin Khan MD LAB - HEMATOLOGY OR DERABLES [facility] [address] [place] [address] * (ABNORMAL) COMPREHENSIVE METABOLIC PANEL (04/04/2022 6:14 AM CDT) Glucose 81 70 - 105 mg/dL 04/04/2022 6:49 AM CDT [facility] Sodium 140 136 - 145 mmol/L 04/04/2022 6:49 AM CDT [facility] Potassium 4.5 3.5 - 5.1 mmol/L 04/04/2022 6:49 AM CDT [facility] Chloride 105 98 - 107 mmol/L 04/04/2022 6:49 AM CDT [facility] CO2 23 23 - 31 mmol/L 04/04/2022 6:49 AM CDT [facility] Calcium 8.9 8.4 - 10.4 mg/dL 04/04/2022 6:49 AM CDT [facility] Anion Gap 12 8 - 18 mmol/L 04/04/2022 6:49 AM CDT [facility] BUN 21(H) 9.8 - 20.1 mg/dL 04/04/2022 6:49 AM CDT [facility] Creatinine 0.88 0.57 - 1.11 mg/dL 04/04/2022 6:49 AM CDT [facility] Alkaline Phosphatase 95 40 - 150 U/L 04/04/2022 6:49 AM CDT [facility] ALT 13 0 - 61 U/L 04/04/2022 6:49 AM CDT [facility] AST 12 5 - 34 U/L 04/04/2022 6:49 AM CDT [facility] Protein Total 7.1 6.4 - 8.3 gm/dL 04/04/2022 6:49 AM CDT [facility] Albumin 3.7 3.2 - 4.6 gm/dL 04/04/2022 6:49 AM CDT [facility] Bilirubin Total 0.4 0.2 - 1.2 mg/dL 04/04/2022 6:49 AM CDT [facility] eGFR by CKD-EPI 75(L) >=90 mL/min/1.7 3 m2 04/04/2022 6:49 AM CDT [facility] Blood BLOOD SPECIMEN / Unknown Venipuncture / Unknown 04/04/2022 6:14 AM CDT 04/04/2022 6:21 AM CDT Tin Khan MD LAB - CHEMISTRY ORD ERABLES Performing Organization Address [facility] Co de Phone Number [facility] [address] [place] [address] * EKG 12-LEAD (04/04/2022 6:04 AM CDT) Ventricular Rate 64 BPM [facility] Atrial Rate 64 BPM [facility] P-R Interval 188 ms [facility] QRS Duration ms 92 ms [facility] Q-T Interval ms 416 ms [facility] QTC Calculation (Bezet) 429 ms [facility] Calculated P [place] 35 degrees [facility] Calculated R [place] -19 degrees [facility] Calculated T [place] 84 degrees [facility] Interpretation EKG NORMAL SINUS RHYTHM POOR R WAVE PROGRESSION BORDERLINE ECG NO PREVIOUS ECGS AVAILABLE Confirmed by Kirill Mckinnon ([id number]) on 04/04/2022 7:08:28 AM [facility] M[facility] 04/04/2022 6:04 AM CDT 04/04/2022 7:08 AM CDT Tin Khan MD ECG ORDERABLES Performing Organization Address [facility] Phone Number [facility] M[facility] * MO SYNTHETIC IMPLNT URINARY 1ML, MO ENDOSCOPIC INJECTION/IMPLANT (06/03/2018 8:47 PM CDT) Narrative [...] A 15 degree rigid cystoscopy using the [employer] injection system was used with a non-coring disposable needle to apply the material. It was placed in 3 points, at 6,12 and 2 o'clock. There was good hemostasis. The total amount of material used was 1 cc of coaptite. The lot number was [id number], and the expiration date was 07/08/20. She [...] Cordova MD PROCEDURE/MINOR SURG ICAL ORDERABLES * MO CYSTOMETROGRAM W/CLINICAL RN&UP, MO ELECTRO-UROFLOWMETRY, FIRST (06/03/2018 8:45 PM CDT) Narrative [...] 45, 61 cm H2O Voiding pressure study (CLINICAL RN): She voided via urethral relaxation and valsalva. Obstructive pattern? ??no Her post void residual by calculation during the voiding pressure study was 54 cc. Kirill Cordova MD PROCEDURE/MINOR SURG ICAL ORDERABLES * (ABNORMAL) HEMOGLOBIN A1C (05/08/2018 2:40 AM CDT) [facility] Hemoglobin A1c 9.0(H) 4.2 - 6.3 % 05/08/2018 3:12 AM CDT [facility] Estimated Average Glucose 212 mg/dL 05/08/2018 3:12 AM CDT [facility] Whole Blood BLOOD SPECIMEN WITH EDTA / Unknown Venipuncture / Unknown 05/08/2018 2:40 AM CDT 05/08/2018 2:43 AM CDT Jennifer Springer MD LAB - CHEMISTRY MEAGAN BARRIGA [facility] Organization Address City/State/ZIP Co de Phone Number [facility] [address] [place] [address] * (ABNORMAL) GLUCOSE FASTING (05/08/2018 2:40 AM CDT) [facility] Glucose Fasting 212(H) 74 - 106 mg/dL 05/08/2018 3:09 AM CDT [facility] Blood BLOOD SPECIMEN / Unknown Venipuncture / Unknown 05/08/2018 2:40 AM CDT 05/08/2018 2:44 AM CDT Jennifer Springer MD LAB - CHEMISTRY MEAGAN BARRIGA Performing Organization Address [facility]/ZIP Co de Phone Number [facility] [address] [place] [address] * BLOOD TYPE VERIFICATION (05/07/2018 8:31 AM CDT) ABO O 05/07/2018 8:36 AM CDT [facility] Rh Type Negative 05/07/2018 8:36 AM CDT [facility] Blood Bank BLOOD SPECIMEN / Unknown No Charge Blood Draw / Unknown 05/07/2018 8:31 AM CDT 05/07/2018 8:31 AM CDT Christy Khan MD LAB - BLOOD BANK [place] BENSON Performing Organization Address [facility] Co de Phone Number [facility] [address] [place] [address] * TYPE + SCREEN PANEL (05/07/2018 6:50 AM CDT) ABO O 05/07/2018 8:35 AM CDT [facility] Rh Type Negative 05/07/2018 8:35 AM CDT [facility] Antibody Screen Negative 05/07/2018 8:35 AM CDT [facility] Blood Bank BLOOD SPECIMEN / Unknown Venipuncture / Unknown 05/07/2018 6:50 AM CDT 05/07/2018 8:28 AM CDT Christy Khan MD LAB - BLOOD BANK ORD MARCELINO Performing Organization Address City/[facility]/ZIP Co de Phone Number [facility] [address] [place] [address] * (ABNORMAL) CBC W/O DIFFERENTIAL (05/07/2018 6:50 AM CDT) Pathologist [facility] WBC 11.3(H) 4.4 - 10.7 x10E9/L 05/07/2018 7:21 AM CDT [facility] RBC 5.27(H) 3.80 - 5.20 x10E12/L 05/07/2018 7:21 AM CDT [facility] Hemoglobin 15.5 12.0 - 15.6 gm/dL 05/07/2018 7:21 AM CDT [facility] Hematocrit 47.7(H) 35.9 - 45.5 % 05/07/2018 7:21 AM CDT [facility] MCV 90.5 80.7 - 98.3 fl 05/07/2018 7:21 AM CDT [facility] MCH 29.4 26.7 - 34.0 pg 05/07/2018 7:21 AM CDT [facility] MCHC 32.5 30.8 - 35.9 gm/dL 05/07/2018 7:21 AM CDT [facility] Platelet Count 202 153 - 416 x10E9/L 05/07/2018 7:21 AM CDT [facility] RDW-CV 14.3 12.1 - 14.9 % 05/07/2018 7:21 AM CDT [facility] MPV 10.2 9.4 - 12.9 fl 05/07/2018 7:21 AM CDT [facility] Blood BLOOD SPECIMEN / Unknown Venipuncture / Unknown 05/07/2018 6:50 AM CDT 05/07/2018 7:13 AM CDT Christy Khan MD LAB - HEMATOLOGY ORD ERABLES Performing Organization Address City/State/[facility] Co de Phone Number [facility] [address] [place] [address] * (ABNORMAL) BASIC METABOLIC PANEL (CALCIUM TOTAL) (05/07/2018 6:50 AM CDT) Glucose 154(H) 74 - 106 mg/dL 05/07/2018 7:34 AM CDT [facility] Sodium 142 136 - 145 mmol/L 05/07/2018 7:34 AM CDT [facility] Potassium 4.3 3.5 - 5.1 mmol/L 05/07/2018 7:34 AM CDT [facility] Chloride 108(H) 98 - 107 mmol/L 05/07/2018 7:34 AM CDT [facility] CO2 28 22 - 31 mmol/L 05/07/2018 7:34 AM CDT [facility] Calcium 9.0 8.5 - 10.1 mg/dL 05/07/2018 7:34 AM CDT [facility] Anion Gap 6(L) 8 - 16 mmol/L 05/07/2018 7:34 AM CDT [facility] BUN 13 7 - 21 mg/dL 05/07/2018 7:34 AM CDT [facility] Creatinine 0.56 0.50 - 1.30 mg/dL 05/07/2018 7:34 AM CDT [facility] eGFR by MDRD >60 >60 mL/min/1.7 3m2 05/07/2018 7:34 AM CDT [facility] eGFR by MDRD >60 >60 mL/min/1.7 3m2 05/07/2018 7:34 AM CDT [facility] Blood BLOOD SPECIMEN / Unknown Venipuncture / Unknown 05/07/2018 6:50 AM CDT 05/07/2018 7:13 AM CDT Christy Khan MD LAB - CHEMISTRY MEAGAN BARRIGA [facility] Organization Address City/State/[facility] Co de Phone Number [facility] [address] [place] [address] * URINALYSIS - POINT OF CARE (AMB) [facility] (04/21/2018) Specific [place] UA 1.000 pH UA 5 WBC UA neg Nitrite UA neg Protein UA neg Glucose UA 200 Ketones UA POCT neg Urobilinogen UA neg Bilirubin UA POCT neg Blood Urine POCT neg Urine URINE / Unknown 04/21/2018 Kirill Cordova MD LAB - POINT OF CARE ORDERABLES Care Teams Compliance Examiner Relationship Specialty Start Date End Date Gurvinder Renteria MD [address] [place] [address] PCP - General 01/01/22 Karime Aguilera RN 05/07/18
--- OUTSIDE RECORDS SUMMARY | 2024-12-14 03:36 | XMS_ITS | Encounter Summary ---
Author Organization [facility] Address [address] [place] [address] Care Team Providers Care Insurance Claim Approver Name Role Phone Unavailable Primary Care Provider Unavailabl e Encounter Details Date Type Department Care Team (Late st Contact Info) Description 07/02/2021 Lab Requisition [facility] Services [address] [place] [address] [place] [address] [place] [address] Social History Tobacco Use Types Packs/Day Years Used Date Smoking Tobacco: Unknown Comments Unknown Sex and Gender Information Value Date Recorded Sex Assigned at Not on file Legal Sex Female 11:57 PM CDT Gender Identity Not on file Sexual Orientation Not on file COVID-19 Exposure Response Date Recorded In the last month, have you been in contact with someone who was confirmed or suspected to have Coronavirus / COVID-19? Unable to assess 06/18/2021 12:31 PM CDT documented as of this encounter Plan of Treatment Not on file documented as of this encounter Procedures Procedure Name Priority Date/Time Associated Diagnosis Comments IRON, TIBC, AND PERCENT SATURATION Routine 07/02/2021 4:10 AM CDT CBC WITH DIFFERENTIAL Routine 07/02/2021 4:10 AM CDT SEDIMENTATION RATE Routine 07/02/2021 4: 10 AM CDT RETICULOCYTES Routine 07/02/2021 4:10 AM CDT C-REACTIVE PROTEIN Routine 07/02/2021 4: 10 AM CDT PREALBUMIN Routine 07/02/2021 4:10 AM CDT COMPREHENSIVE METABOLIC PANEL Routine 07/02/2021 4:10 AM CDT documented in this encounter Results * (ABNORMAL) SEDIMENTATION RATE (07/02/2021 4:10 AM CDT) Pathologist [facility] ESR (SEDIMENTATION RATE) 59(H) 0 - 30 mm/Hr 07/02/2021 9:26 AM CDT [facility] Blood Collection / Unknown 07/02/2021 4:10 AM CDT 07/02/2021 5:57 AM CDT Nargis Guy MD HEMATOLOGY ORDERABLES Final Resu lt Performing Organization Address City/[facility]/ZIP Co de Phone Number [facility] CLIA# [id number] [place] [address] * RETICULOCYTES (07/02/2021 4:10 AM CDT) Pathologist [facility] RETICULOCYTES 2.0 0.4 - 2.0 % 07/02/2021 6:49 AM CDT [facility] IMMATURE RETIC FRACTION 0.5 % 07/02/2021 6:49 AM CDT [facility] RETICULOCYTE, ABSOLUTE 0.0681 0.0250 - 0.1480 10e6/uL 07/02/2021 6:49 AM CDT [facility] Blood Collection / Unknown 07/02/2021 4:10 AM CDT 07/02/2021 5:57 AM CDT Nargis Guy MD HEMATOLOGY ORDERABLES Final Resu lt Performing Organization Address City/[facility]/ZIP Co de Phone Number [facility] CLIA# [id number] [place] [address] * (ABNORMAL) PREALBUMIN (07/02/2021 4:10 AM CDT) PREALBUMIN 17(L) 20 - 40 mg/dL 07/02/2021 2:25 PM CDT [facility] Blood Collection / Unknown 07/02/2021 4:10 AM CDT 07/02/2021 5:57 AM CDT Nargis Guy MD CHEMISTRY ORDERABLES Final Resul t [facility] CLIA# [id number] [address] [address] * (ABNORMAL) IRON, TIBC, AND PERCENT SATURATION (07/02/2021 4:10 AM CDT) IRON 36(L) 37 - 145 ug/dL 07/02/2021 7:20 AM CDT [facility] TIBC 161(L) 265 - 497 ug/dL 07/02/2021 7:20 AM CDT [facility] IRON % SATURATION 22 20 - 55 % 07/02/2021 7:20 AM CDT [facility] Blood Collection / Unknown 07/02/2021 4:10 AM CDT 07/02/2021 5:57 AM CDT Nargis Guy MD CHEMISTRY ORDERABLES Final Resul t [facility] CLIA# [id number] [address] [place] [address] * (ABNORMAL) C-REACTIVE PROTEIN (07/02/2021 4:10 AM CDT) CRP 27.4(H) <5.0 mg/L 07/02/2021 7:20 AM CDT [facility] Blood Collection / Unknown 07/02/2021 4:10 AM CDT 07/02/2021 5:57 AM CDT Nargis Guy MD CHEMISTRY ORDERABLES Final Resul t [facility] CLIA# [id number] [place] [address] * (ABNORMAL) CBC WITH DIFFERENTIAL (07/02/2021 4:10 AM CDT) [facility] WBC 6.5 4.5 - 10.5 K/uL 07/02/2021 6:49 AM CDT [facility] RBC 3.48(L) 3.90 - 4.90 M/uL 07/02/2021 6:49 AM CDT [facility] HEMOGLOBIN 9.5(L) 11.8 - 14.8 g/dL 07/02/2021 6:49 AM CDT [facility] HEMATOCRIT 29.3(L) 35.5 - 44.0 % 07/02/2021 6:49 AM CDT [facility] MCV 84.1 82.0 - 99.0 fL 07/02/2021 6:49 AM CDT [facility] MCH 27.2(L) 27.8 - 34.5 pg 07/02/2021 6:49 AM CDT [facility] MCHC 32.3(L) 32.5 - 35.5 g/dL 07/02/2021 6:49 AM CDT [facility] RDW 15.8(H) 11.5 - 14.5 % 07/02/2021 6:49 AM CDT [facility] PLATELETS 386 160 - 420 K/uL 07/02/2021 6:49 AM CDT [facility] MPV 7.3(L) 8.7 - 12.7 fL 07/02/2021 6:49 AM CDT [facility] NEUTROPHILS 51 % 07/02/2021 6:49 AM CDT [facility] LYMPHOCYTES 36 % 07/02/2021 6:49 AM CDT [facility] MONOCYTES 7 % 07/02/2021 6:49 AM CDT [facility] SERVICES [facility] EOSINOPHILS 5 % 07/02/2021 6:49 AM CDT [facility] SERVICES [facility] BASOPHILS 1 % 07/02/2021 6:49 AM CDT [facility] SERVICES [facility] NEUTROPHIL ABSOLUTE 3.30 1.90 - 7.00 K/uL 07/02/2021 6:49 AM CDT [facility] SERVICES [facility] LYMPHOCYTE ABSOLUTE 2.30 0.70 - 4.50 K/uL 07/02/2021 6:49 AM CDT [facility] SERVICES [facility] MONOCYTE ABSOLUTE 0.50 0.10 - 1.30 K/uL 07/02/2021 6:49 AM CDT [facility] SERVICES [facility] EOSINOPHIL ABSOLUTE 0.30 0.00 - 0.70 K/uL 07/02/2021 6:49 AM CDT [facility] SERVICES [facility] BASOPHILS ABSOLUTE 0.10 0.00 - 0.20 K/uL 07/02/2021 6:49 AM CDT [facility] SERVICES [facility] Blood Collection / Unknown 07/02/2021 4:10 AM CDT 07/02/2021 5:57 AM CDT us Nargis Guy MD HEMATOLOGY ORDERABLES Final Resu lt [facility] CLIA# [id number] [place] [address] * (ABNORMAL) COMPREHENSIVE METABOLIC PANEL (07/02/2021 4:10 AM CDT) SODIUM 139 136 - 145 mmol/L 07/02/2021 7:20 AM CDT [facility] POTASSIUM 4.5 3.4 - 5.1 mmol/L 07/02/2021 7:20 AM CDT [facility] CHLORIDE 104 98 - 107 mmol/L 07/02/2021 7:20 AM [facility] CO2 24 22 - 29 mmol/L 07/02/2021 7:20 AM [facility] CALCIUM 8.9 8.6 - 10.4 mg/dL 07/02/2021 7:20 AM [facility] BUN 12 6 - 20 mg/dL 07/02/2021 7:20 AM [facility] CREATININE 0.94 0.51 - 0.95 mg/dL 07/02/2021 7:20 AM [facility] GLUCOSE 111(H) 74 - 99 mg/dL 07/02/2021 7:20 AM [facility] TOTAL PROTEIN 6.0(L) 6.3 - 8.7 g/dL 07/02/2021 7:20 AM [facility] ALBUMIN 2.8(L) 3.5 - 5.2 g/dL 07/02/2021 7:20 AM [facility] BILIRUBIN TOTAL <0.2(L) 0.2 - 1.1 mg/dL 07/02/2021 7:20 AM [facility] ALKALINE PHOSPHATASE 102 40 - 150 U/L 07/02/2021 7:20 AM [facility] AST 21 0 - 33 U/L 07/02/2021 7:20 AM [facility] ALT 15 0 - 33 U/L 07/02/2021 7:20 AM [facility] GFR >60 mL/min/1.7 3 sq meter 07/02/2021 7:20 AM [facility] Comment: eGFR has not been validated for use in the elderly (> 70 years of age), women, patients with serious co-morbid conditions, or persons with extremes of body size or muscle mass and should also be interpreted with caution in patients with acute kidney failure, dialysis dependent patients, patients reporting exceptional dietary intake (e.g. vegetarian diet, high protein diets, creatine supplementation), and patients with severe liver disease. Based on National Kidney Disease Education Program If patient is , please refer to the GFR result. GFR, >60 mL/min/1.7 3 sq meter 07/02/2021 7:20 AM CDT [facility] ANION GAP 11 8 - 16 mmol/L 07/02/2021 7:20 AM CDT [facility] Blood Collection / Unknown 07/02/2021 4:10 AM CDT 07/02/2021 5:57 AM CDT us Nargis Guy MD CHEMISTRY ORDERABLES Final Resul t [facility] CLIA# [id number] [address] [place] [address] documented in this encounter Visit Diagnoses Not on filedocumented in this encounter
--- OUTSIDE RECORDS SUMMARY | 2024-12-14 03:36 | XMS_ITS | Encounter Summary ---
Author Organization [facility] Address [address] [place] [address] Care Team Providers Care Technical Artist Name Role Phone Unavailable Primary Care Provider Unavailabl e Encounter Details Date Type Department Care Team (Late st Contact Info) Description 07/19/2021 Lab Requisition [facility] Laboratory Services [address] [place] [address] [place] [address] [place] [address] Social History Tobacco Use Types [...] have Coronavirus / COVID-19? Unable to assess 07/18/2021 9:10 AM CDT documented as of this encounter Plan of Treatment Not on file documented as of this encounter Procedures Procedure Name Priority Date/Time Associated Diagnosis Comments CBC WITH DIFFERENTIAL Routine 07/19/2021 3:23 AM CDT COMPREHENSIVE METABOLIC PANEL Routine 07/19/2021 3:23 AM CDT documented in this encounter Results * (ABNORMAL) CBC WITH DIFFERENTIAL (07/19/2021 3:23 AM CDT) WBC 7.4 4.5 - 10.5 K/uL 07/19/2021 11:50 AM CDT [facility] RBC 3.66(L) 3.90 - 4.90 M/uL 07/19/2021 11:50 AM CDT [facility] HEMOGLOBIN 9.6(L) 11.8 - 14.8 g/dL 07/19/2021 11:50 AM CDT [facility] SERVICES [facility] HEMATOCRIT 30.5(L) 35.5 - 44.0 % 07/19/2021 11:50 AM CDT [facility] SERVICES [facility] MCV 83.5 82.0 - 99.0 fL 07/19/2021 11:50 AM CDT [facility] SERVICES [facility] MCH 26.4(L) 27.8 - 34.5 pg 07/19/2021 11:50 AM CDT [facility] SERVICES [facility] MCHC 31.6(L) 32.5 - 35.5 g/dL 07/19/2021 11:50 AM CDT [facility] RDW 15.6(H) 11.5 - 14.5 % 07/19/2021 11:50 AM CDT [facility] SERVICES [facility] PLATELETS 383 160 - 420 K/uL 07/19/2021 11:50 AM CDT [facility] SERVICES [facility] MPV 8.0(L) 8.7 - 12.7 fL 07/19/2021 11:50 AM CDT [facility] NEUTROPHILS 52 % 07/19/2021 11:50 AM CDT [facility] SERVICES [facility] LYMPHOCYTES 36 % 07/19/2021 11:50 AM CDT [facility] SERVICES [facility] MONOCYTES 6 % 07/19/2021 11:50 AM CDT [facility] SERVICES [facility] EOSINOPHILS 5 % 07/19/2021 11:50 AM CDT [facility] SERVICES [facility] BASOPHILS 1 % 07/19/2021 11:50 AM CDT [facility] SERVICES [facility] NEUTROPHIL ABSOLUTE 3.80 1.90 - 7.00 K/uL 07/19/2021 11:50 AM CDT [facility] SERVICES [facility] LYMPHOCYTE ABSOLUTE 2.70 0.70 - 4.50 K/uL 07/19/2021 11:50 AM CDT [facility] MONOCYTE ABSOLUTE 0.50 0.10 - 1.30 K/uL 07/19/2021 11:50 AM CDT [facility] SERVICES [facility] EOSINOPHIL ABSOLUTE 0.30 0.00 - 0.70 K/uL 07/19/2021 11:50 AM CDT [facility] SERVICES [facility] BASOPHILS ABSOLUTE 0.10 0.00 - 0.20 K/uL 07/19/2021 11:50 AM CDT [facility] Blood Collection / Unknown 07/19/2021 3:23 AM CDT 07/19/2021 11:47 AM CDT Nargis Gyu MD HEMATOLOGY ORDERABLES Final Resu lt [facility] CLIA# [id number] [address] [place] [address] * (ABNORMAL) COMPREHENSIVE METABOLIC PANEL (07/19/2021 3:23 AM CDT) SODIUM 138 136 - 145 mmol/L 07/19/2021 12:19 PM CDT [facility] POTASSIUM 4.4 3.4 - 5.1 mmol/L 07/19/2021 12:19 PM CDT [facility] CHLORIDE 101 98 - 107 mmol/L 07/19/2021 12:19 PM CDT [facility] CO2 24 22 - 29 mmol/L 07/19/2021 12:19 PM CDT [facility] CALCIUM 9.2 8.6 - 10.4 mg/dL 07/19/2021 12:19 PM CDT [facility] BUN 18 6 - 20 mg/dL 07/19/2021 12:19 PM CDT [facility] CREATININE 0.98(H) 0.51 - 0.95 mg/dL 07/19/2021 12:19 PM CDT [facility] GLUCOSE 102(H) 74 - 99 mg/dL 07/19/2021 12:19 PM CDT [facility] TOTAL PROTEIN 6.5 6.3 - 8.7 g/dL 07/19/2021 12:19 PM T [facility] ALBUMIN 3.1(L) 3.5 - 5.2 g/dL 07/19/2021 12:19 PM [facility] BILIRUBIN TOTAL <0.2(L) 0.2 - 1.1 mg/dL 07/19/2021 12:19 PM [facility] ALKALINE PHOSPHATASE 96 40 - 150 U/L 07/19/2021 12:19 PM [facility] AST 12 0 - 33 U/L 07/19/2021 12:19 PM [facility] ALT 8 0 - 33 U/L 07/19/2021 12:19 PM [facility] GFR 58 mL/min/1.7 3 sq meter 07/19/2021 12:19 PM [facility] Comment: eGFR has not been validated for [...] result. GFR, >60 mL/min/1.7 3 sq meter 07/19/2021 12:19 PM CDT [facility] ANION GAP 13 8 - 16 mmol/L 07/19/2021 12:19 PM T [facility] Blood Collection / Unknown 07/19/2021 3:23 AM CDT 07/19/2021 11:48 AM CDT us Nargis Guy MD CHEMISTRY ORDERABLES Final Resul t [facility] CLIA# [id number] [place] [address] documented in this encounter Visit Diagnoses Not on filedocumented in this encounter
--- OUTSIDE RECORDS SUMMARY | 2024-12-14 03:36 | XMS_ITS | Referral Summary ---
Author Organization [facility] Address [address] [place] [address] Care Team Providers Care Tobacco Sorter Name Role Phone Karime Aguilera RN, Haresh K MD Primary Care Provider [phone] Source Comments [facility],non-owned Affiliates and Associated Physician Practices is amultiple site organization consisting of ambulatory clinics and hospital sitesin [place], [place], [place] and [place]. This disclosure is being madepursuant to the Care Everywhere program and may not contain all information available regarding this patient. Last updated 18.[facility] Allergies Active Allergy Reactions Criticality Noted [...] 1 05/08/2018 Active Blood Glucose Monitoring Suppl (APTwater VERIO FLEX SYSTEM) w/Device KIT 01/08/2022 Active TRULICITY 1.5 MG/0.5ML injection 03/11/2022 Active ergocalciferol (DRISDOL) 1.25 MG (57979 UT) capsule ergocalciferol (vitamin D2) 1,250 mcg [...] POINT OF CARE (04/04/2022 8:36 AM CDT) [facility] Glucose WB/POC 84 70 - 106 mg/dL 04/04/2022 8:46 AM CDT [facility] Specimen Type Cap Fingerstick 2021 8:46 AM CDT [facility] Blood BLOOD SPECIMEN / Unknown 04/04/2022 8:36 AM CDT 04/04/2022 8:46 AM CDT Tin Khan MD LAB - POINT OF CARE ORDERABLES [facility] [address] [place] [address] from Last 3 Months or Most Recently Relevant to Health Maintenance Advance Directives * Full Code (Latest Code Status on File) Date Activated Date Inactivated Comments 05/07/2018 11:05 AM 05/08/2018 2:57 PM Care Teams Tobacco Sorter Relationship Specialty Start Date End Date Gurvinder Renteria MD [address] [place] [address] PCP - General 01/01/22 Karime Aguilera, RN 05/07/18
--- OUTSIDE RECORDS SUMMARY | 2024-12-14 03:36 | XMS_ITS | Encounter Summary ---
Author Organization [facility] Address [address] [place] [address] Care Team Providers Care Nursing Service Director Name Role Phone Unavailable Primary Care Provider Unavailabl e Encounter Details Date Type Department Care Team (Late st Contact Info) Description 06/27/2021 Lab Requisition [facility] Laboratory Services [address] [place] [address] [place] [address] [place] [address] Social History Tobacco Use Types [...] Associated Diagnosis Comments CBC WITH DIFFERENTIAL Routine 06/27/2021 4:22 AM CDT COMPREHENSIVE METABOLIC PANEL Routine 06/27/2021 4:22 AM CDT documented in this encounter Results * (ABNORMAL) CBC WITH DIFFERENTIAL (06/27/2021 4:22 AM CDT) WBC 6.5 4.5 - 10.5 K/uL 06/27/2021 8:37 AM CDT [facility] RBC 3.25(L) 3.90 - 4.90 M/uL 06/27/2021 8:37 AM CDT [facility] HEMOGLOBIN 8.9(L) 11.8 - 14.8 g/dL 06/27/2021 8:37 [facility] HEMATOCRIT 27.8(L) 35.5 - 44.0 % 06/27/2021 8:37 AM CDT [facility] MCV 85.6 82.0 - 99.0 fL 06/27/2021 8:37 AM CDT [facility] MCH 27.5(L) 27.8 - 34.5 pg 06/27/2021 8:37 AM CDT [facility] MCHC 32.2(L) 32.5 - 35.5 g/dL 06/27/2021 8:37 AM CDT [facility] RDW 15.7(H) 11.5 - 14.5 % 06/27/2021 8:37 AM CDT [facility] PLATELETS 367 160 - 420 K/uL 06/27/2021 8:37 [facility] MPV 7.7(L) 8.7 - 12.7 fL 06/27/2021 8:37 AM CDT [facility] NEUTROPHILS 53 % 06/27/2021 8:37 AM CDT [facility] LYMPHOCYTES 33 % 06/27/2021 8:37 AM CDT [facility] SERVICES [facility] MONOCYTES 9 % 06/27/2021 8:37 AM CDT [facility] SERVICES [facility] EOSINOPHILS 4 % 06/27/2021 8:37 AM CDT [facility] SERVICES [facility] BASOPHILS 1 % 06/27/2021 8:37 AM CDT [facility] NEUTROPHIL ABSOLUTE 3.40 1.90 - 7.00 K/uL 06/27/2021 8:37 AM CDT [facility] LYMPHOCYTE ABSOLUTE 2.20 0.70 - 4.50 K/uL 06/27/2021 8:37 AM CDT [facility] MONOCYTE ABSOLUTE 0.60 0.10 - 1.30 K/uL 06/27/2021 8:37 AM CDT [facility] SERVICES [facility] EOSINOPHIL ABSOLUTE 0.30 0.00 - 0.70 K/uL 06/27/2021 8:37 AM CDT [facility] SERVICES [facility] BASOPHILS ABSOLUTE 0.10 0.00 - 0.20 K/uL 06/27/2021 8:37 AM CDT [facility] Blood Collection / Unknown 06/27/2021 4:22 AM CDT 06/27/2021 8:17 AM CDT Nargis Guy MD HEMATOLOGY ORDERABLES Final Resu lt [facility] CLIA# [id number] [place] [address] * (ABNORMAL) COMPREHENSIVE METABOLIC PANEL (06/27/2021 4:22 AM CDT) SODIUM 137 136 - 145 mmol/L 06/27/2021 9:05 AM CDT [facility] POTASSIUM 3.9 3.4 - 5.1 mmol/L 06/27/2021 9:05 AM T [facility] CHLORIDE 104 98 - 107 mmol/L 06/27/2021 9:05 AM T [facility] CO2 24 22 - 29 mmol/L 06/27/2021 9:05 AM T [facility] CALCIUM 8.8 8.6 - 10.4 mg/dL 06/27/2021 9:05 AM CDT [facility] BUN 10 6 - 20 mg/dL 06/27/2021 9:05 AM CDT [facility] CREATININE 1.00(H) 0.51 - 0.95 mg/dL 06/27/2021 9:05 AM T [facility] GLUCOSE 110(H) 74 - 99 mg/dL 06/27/2021 9:05 AM T [facility] TOTAL PROTEIN 5.9(L) 6.3 - 8.7 g/dL 06/27/2021 9:05 AM [facility] ALBUMIN 2.5(L) 3.5 - 5.2 g/dL 06/27/2021 9:05 AM [facility] BILIRUBIN TOTAL <0.2(L) 0.2 - 1.1 mg/dL 06/27/2021 9:05 AM [facility] ALKALINE PHOSPHATASE 96 40 - 150 U/L 06/27/2021 9:05 AM [facility] - [place] AST 19 0 - 33 U/L 06/27/2021 9:05 AM [facility] [place] ALT 17 0 - 33 U/L 06/27/2021 9:05 AM [facility] [place] GFR 57 mL/min/1.7 3 sq meter 06/27/2021 9:05 AM [facility] [place] Comment: eGFR has not been validated for [...] result. GFR, >60 mL/min/1.7 3 sq meter 06/27/2021 9:05 AM T [facility] ANION GAP 9 8 - 16 mmol/L 06/27/2021 9:05 AM [facility] [place] Blood Collection / Unknown 06/27/2021 4:22 AM CDT 06/27/2021 8:17 AM CDT us Nargis Guy MD CHEMISTRY ORDERABLES Final Resul t [facility] CLIA# [id number] [place] [address] documented in this encounter Visit Diagnoses Not on filedocumented in this encounter
--- OUTSIDE RECORDS SUMMARY | 2024-12-14 03:36 | XMS_ITS | Encounter Summary ---
Author Organization [facility] Address [address] [place] [address] Care Team Providers Care Information Systems Security Officer Name Role Phone Unavailable Primary Care Provider Unavailabl e Encounter Details Date Type Department Care Team (Late st Contact Info) Description 07/12/2021 Lab Requisition [facility] Laboratory Services [address] [place] [address] [place] [address] [place] [address] Social History Tobacco Use Types [...] Procedure Name Priority Date/Time Associated Diagnosis Comments COMPREHENSIVE METABOLIC PANEL Routine 07/12/2021 5:00 AM CDT documented in this encounter Results * (ABNORMAL) COMPREHENSIVE METABOLIC PANEL (07/12/2021 5:00 AM CDT) SODIUM 137 136 - 145 mmol/L 07/12/2021 11:37 AM CDT [facility] POTASSIUM 4.2 3.4 - 5.1 mmol/L 07/12/2021 11:37 AM [facility] CHL[facility] 101 98 - 107 mmol/L 07/12/2021 11:[address] [facility] CO2 22 22 - 29 mmol/L 07/12/2021 11:[address] [facility] CALCIUM 9.3 8.6 - 10.4 mg/dL 07/12/2021 11:[address] [facility] BUN 20 6 - 20 mg/dL 07/12/2021 11:[address] [facility] CREATININE 1.26(H) 0.51 - 0.95 mg/dL 07/12/2021 11:[address] [facility] GLUCOSE 121(H) 74 - 99 mg/dL 07/12/2021 11:[address] [facility] TOTAL PROTEIN 6.9 6.3 - 8.7 g/dL 07/12/2021 11:[address] [facility] ALBUMIN 3.3(L) 3.5 - 5.2 g/dL 07/12/2021 11:[address] [facility] BILIRUBIN TOTAL 0.2 0.2 - 1.1 mg/dL 07/12/2021 11:[address] [facility] ALKALINE PHOSPHATASE 101 40 - 150 U/L 07/12/2021 11:[address] [facility] AST 17 0 - 33 U/L 07/12/2021 11:[address] [facility] ALT 12 0 - 33 U/L 07/12/2021 11:[address] [facility] GFR 43 mL/min/1.7 3 sq meter 07/12/2021 11:[address] [facility] Comment: eGFR has not been validated for [...] please refer to the GFR result. GFR, 52 mL/min/1.7 3 sq meter 07/12/2021 11:37 AM CDT [facility] ANION GAP 14 8 - 16 mmol/L 07/12/2021 11:37 AM CDT [facility] Blood Collection / Unknown 07/12/2021 5:00 AM CDT 07/12/2021 11:05 AM CDT us Nargis Guy MD CHEMISTRY ORDERABLES Final Resul t [facility] [employer] [facility] CLIA# [id number] [place] [address] documented in this encounter Visit Diagnoses Not on filedocumented in this encounter
--- OUTSIDE RECORDS SUMMARY | 2024-12-14 03:36 | XMS_ITS | Encounter Summary ---
Author Organization [facility] Address [address] [place] [address] Care Team Providers Care Speech Writer Name Role Phone Unavailable Primary Care Provider Unavailabl e Encounter Details Date Type Department Care Team (Late st Contact Info) Description 07/11/2021 Lab Requisition [facility] Laboratory Services [address] [place] [address] [place] [address] [place] [address] Social History Tobacco Use Types [...] Associated Diagnosis Comments CBC WITH DIFFERENTIAL Routine 07/11/2021 5:00 AM CDT documented in this encounter Results * (ABNORMAL) CBC WITH DIFFERENTIAL (07/11/2021 5:00 AM CDT) WBC 8.0 4.5 - 10.5 K/uL 07/11/2021 9:11 AM CDT [facility] RBC 3.85(L) 3.90 - 4.90 M/uL 07/11/2021 9:11 AM CDT [facility] HEMOGLOBIN 10.5(L) 11.8 - 14.8 g/dL 07/11/2021 9:11 AM CDT [facility] HEMATOCRIT 32.4(L) 35.5 - 44.0 % 07/11/2021 9:11 [facility] MCV 84.0 82.0 - 99.0 fL 07/11/2021 9:11 AM CDT [facility] MCH 27.1(L) 27.8 - 34.5 pg 07/11/2021 9:11 AM CDT [facility] MCHC 32.3(L) 32.5 - 35.5 g/dL 07/11/2021 9:11 AM CDT [facility] RDW 15.2(H) 11.5 - 14.5 % 07/11/2021 9:11 AM CDT [facility] PLATELETS 404 160 - 420 K/uL 07/11/2021 9:11 AM CDT [facility] MPV 8.0(L) 8.7 - 12.7 fL 07/11/2021 9:11 AM CDT [facility] NEUTROPHILS 49 % 07/11/2021 9:11 AM CDT [facility] LYMPHOCYTES 37 % 07/11/2021 9:11 AM CDT [facility] MONOCYTES 8 % 07/11/2021 9:11 AM CDT [facility] EOSINOPHILS 5 % 07/11/2021 9:11 AM CDT [facility] BASOPHILS 1 % 07/11/2021 9:11 AM CDT [facility] NEUTROPHIL ABSOLUTE 3.90 1.90 - 7.00 K/uL 07/11/2021 9:11 AM CDT [facility] LYMPHOCYTE ABSOLUTE 3.00 0.70 - 4.50 K/uL 07/11/2021 9:11 AM CDT [facility] MONOCYTE ABSOLUTE 0.60 0.10 - 1.30 K/uL 07/11/2021 9:11 AM CDT [facility] EOSINOPHIL ABSOLUTE 0.40 0.00 - 0.70 K/uL 07/11/2021 9:11 AM CDT [facility] - [facility] BASOPHILS ABSOLUTE 0.10 0.00 - 0.20 K/uL 07/11/2021 9:11 AM CDT [facility] Blood Collection / Unknown 07/11/2021 5:00 AM CDT 07/11/2021 8:43 AM CDT us Nargis Guy MD HEMATOLOGY ORDERABLES Final Resu lt [facility] CLIA# [id number] [place] [address] documented in this encounter Visit Diagnoses Not on filedocumented in this encounter
--- OUTSIDE RECORDS SUMMARY | 2024-12-14 03:36 | XMS_ITS | CONTINUITY OF CARE DOCUMENT ---
Author Name rea, rea Address Unknown Organization [facility] Address [address] [place] [address] Phone [phone] Care Team Providers Care Log Truck Driver Name Role Phone Tello Li MD Unavailable SONIA TAYLOR MD Unavailable SONIA TAYLOR MD Unavailable PROBLEMS Condition Status Date Provider Notes Numbness [...] In-person encounter Office Visit Tello Li MD [facility] Depression 02/12 - 02/12 In-person encounter Office Visit Tlelo Li MD [facility] Necrotizing fasciitis- h/oAtrial fibrillationCardiac murmur 11/24 - 11/27 In-person encounter Office Visit Tello Li MD [facility] 07/23 - 07/26 In-person encounter Office Visit Tello Li MD [facility] Family History of Hypertension:CAD s/p s tent to the diagonal 07/23 - 07/23 In-person encounter Office Visit Tello Li MD [facility] Obesity 01/22 - 01/22 In-person encounter Office Visit Tello Li MD [facility] SLEEP APNEA - mildFatigue 07/03 - 07/03 In-person encounter Office Visit Tello Li MD [facility] 01/02 - 01/02 In-person encounter Office Visit Tello Li MD [facility] CAD s/p stent to the diagonal 01/01 - 01/02 In-person encounter Office Visit Tello Li MD [facility] HTN essentialDiabetes mellitusArthritisAsthmaCOPDHyperlipidemiaSLEEP APNEA - mildCAD [...] Jenelle painter height E&M 63 [in_i] Jenelle paitner Body Mass Index (Ratio) 65.89 kg/m2 Rufina [...] Alvin oxygen saturation, oximetry 96 % Liliya [place] pulse rate 90 /min Liliya [place] blood pressure, cuff size regular Kr isted Alvin weight E&M 389 [lb_av] Liliya [place] height E&M 63 [in_i] Liliya Alvin Body [...] er Body Mass Index (Ratio) 70.85 kg/m2 Rufian Li MD blood pressure, cuff size regular Ke rrranjan Marla blood pressure, diastolic 83 mm[Hg] Ke rrranjan Gutiérrez blood pressure, systolic 150 mm[Hg] Filomena vidal Marla oxygen saturation, oximetry 93 % Linda Marla respiratory rate E&M 18 /min Linda Greer yaron pulse rate 68 /min Linda Loli er weight E&M 400 [lb_av] Linda Loli er height E&M 63 [in_i] Linda Loli [facility] Body Mass Index (Ratio) 72.09 kg/m2 Rufina [...] 3.5-5.2 0 sodium, serum 143 mmol/L [employer] [phone]/03/1 0 urea nitrogen/creatinine ratio, serum 18 [employer] [...] High 0 cholesterol, serum 157 mg/dL [employer] [phone]/03/1 0 basophil count, absolute 0.0 x10E3/uL [employer] [...] Estab. 0 platelet count 225 X10E3/UL [employer] [phone]/03/1 0 red blood cell distribution width 15.3 [...] 1 Jenelle Pierre cigarette use yes Jenelle Natalie felix smoking [...] Tello Li MD number of grandchildren Tello Li MD U jaciel Li MD smoking/tobacco cess [...] Payer name Policy type / Coverage type [facility] [place] [employer] (2) Medicaid [id number] ADVANCE DIRECTIVES Name Date DISCUSSED - NO [...] for CVA prophylaxis S /p DCCV at [facility]. ECG shows NSR in the clinic today [...] NP Cardiology follow up :per PCP Us velasquez Li MD Cardiology follow up : a s she notes an occasional squeezing sensation in upper chest and neck, will repeat stress test at [facility]. otherwise, continue same meds. T he Patient was reencouraged to stop smoking. Tello Li MD Cardiology follow up : T he Patient was reencouraged to stop smoking. Tello iL MD Cardiology follow up : B P today: 138/80 P rior BP: 132/70 (07/23/2018) Tello Li MD Cardiology follow up :stable. will continue the Aspirin and the Atorvastatin. She is to continue her DM control. Tello Li MD Cardiology follow up :Pt has lost 15 lbs since last visit. She has been preparing smaller portions to eat. Tello Li MD Cardiology follow up :The Patient was [...] up :Per Dr. Lam khan. Well controlled. eTllo Li MD Cardiology Follow up : B [...] completed EKG Tello Li MD completed SNOMED-CT: 92850815 Physical Exam, Performed: Pulse Exam of Foot Tello Li MD completed SNOMED-CT: 717606483 032897 Current Medications Documented Tello Li MD completed SNOMED-CT: 907396092 Smoking Cessation Counseling Tello Li MD completed SNOMED-CT: 56823606 Physical Exam, Performed: Pulse Exam of Foot Tello Li MD completed EKG Tello Li MD completed SNOMED-CT: 167112589 084958 Current Medications Documented Tello Li MD completed SNOMED-CT: 372115010 Smoking Cessation Counseling Tello Li MD completed SNOMED-CT: 17496878 Physical Exam, Performed: Pulse Exam of Foot Tello Li MD completed SNOMED-CT: 225535319 201056 Current Medications Documented Tello Li MD completed
--- OUTSIDE RECORDS SUMMARY | 2024-12-14 03:36 | XMS_ITS | Clinical Summary ---
Author Organization [facility] Address [address] [place] [address]. [place], [place] [address] [place] [address] Care Team Providers Care Distance Education Director Name Role Phone Unavailable Primary Care [...]
--- OUTSIDE RECORDS SUMMARY | 2024-12-14 03:36 | XMS_ITS | Encounter Summary ---
Author Organization [facility] Address [address] [place] [address] Care Team Providers Care Diamond Selector Name Role Phone Unavailable Primary Care Provider Unavailabl e Encounter Details Date Type Department Care Team (Late st Contact Info) Description 06/21/2021 Lab Requisition [facility] Laboratory Services [address] [place] [address] [place] [address] [place] [address] Social History Tobacco Use Types [...] Procedure Name Priority Date/Time Associated Diagnosis Comments URINALYSIS WITH REFLEX CULTURE Routine 06/20/2021 8:08 PM CDT URINE CULTURE Routine 06/20/2021 8:08 PM CDT documented in this encounter Results * (ABNORMAL) URINE CULTURE (06/20/2021 8:08 PM CDT) CULTURE ESCHERICHIA COLI(A) HAKEEM MCG/ML 06/23/2021 8:32 AM CDT [facility] Urine URINE SPECIMEN OBTAINED BY CLEAN CATCH PROCEDURE / Unknown Collection / Unknown 06/20/2021 8:08 PM CDT 06/21/2021 11:06 AM CDT Narrative Organism Antibiotic Method Susceptibility Escherichia coli AMPICILLIN/ SULBACTAM HAKEEM MCG/ML 16 mcg/mL: Intermediate Escherichia coli AMPICILLIN HAKEEM MCG/ML >=32 mcg/mL: Resistant Escherichia coli CEFAZOLIN HAKEEM MCG/ML <=4 mcg/mL: Susceptible Escherichia coli CEFUROXIME HAKEEM MCG/ML Susceptible Escherichia coli CEPHALEXIN HAKEEM MCG/ML Susceptible Escherichia coli CEFPODOXIME HAKEEM MCG/ML Susceptible Escherichia coli CEFACLOR HAKEEM MCG/ML Susceptible Escherichia coli CEFDINIR HAKEEM MCG/ML Susceptible Escherichia coli CIPROFLOXACIN HAKEEM MCG/ML >=4 mcg/mL: Resistant Escherichia coli GENTAMICIN HAKEEM MCG/ML <=1 mcg/mL: Susceptible Escherichia coli NITROFURANTOIN HAKEEM MCG/ML <=16 mcg/mL: Susceptible Escherichia coli PIPERACILLIN/ TAZOBACTAM HAKEEM MCG/ML <=4 mcg/mL: Susceptible Escherichia coli TRIMETHOPRIM/ SULFAMETHOXAZOLE HAKEEM MC G/ML >=320 mcg/mL: Resistant Nargis Guy MD MICROBIOLOGY - GENERAL ORDERABLE S Final Result [facility]# [id number] [address] [facility] [address] * (ABNORMAL) URINALYSIS WITH REFLEX CULTURE (06/20/2021 8:08 PM CDT) COLOR UA Yellow Pale to Dark Yellow 06/21/2021 11:06 AM CDT [facility] Dispop [facility] CLARITY UA Slightly Cloudy(A) Clear 06/21/2021 11:06 AM CDT [facility] SPECIFIC GRAVITY UA 1.012 1.003 - 1.035 06/21/2021 11:06 AM CDT [facility] PH UA 5.0 5.0 - 8.0 06/21/2021 11:06 AM CDT [facility] LEUKOCYTE ESTERASE UA 1+(A) Negative 06/21/2021 11:06 AM [facility] NITRITE UA Positive(A) Negative 06/21/2021 11:06 AM [facility] PROTEIN UA Negative Negative 06/21/2021 11:06 AM T [facility] GLUCOSE UA 1+(A) Negative 06/21/2021 11:06 AM T [facility] KETONES UA Negative Negative 06/21/2021 11:06 AM T [facility] UROBILINOGEN UA Normal <2.0 mg/dL 11:06 AM T [facility] BILIRUBIN UA Negative Negative 06/21/2021 11:06 AM T [facility] BLOOD UA 1+(A) Negative 06/21/2021 11:06 AM [facility] WBC UA 11-25(A) 0 - 2 /hpf 06/21/2021 11:06 AM T [facility] RBC UA 6-10(A) 0 - 2 /hpf 06/21/2021 11:06 AM CDT [facility] BACTERIA UA 2+(A) Negative /hpf 06/21/2021 11:06 AM T [facility] EPITHELIAL CELLS, URINE 6-10(A) 0 - 5 /hpf 06/21/2021 11:06 AM [facility] HYALINE CAST None Seen None Seen, 0-2 /lpf 06/21/2021 11:06 AM [facility] Urine URINE SPECIMEN OBTAINED BY CLEAN CATCH PROCEDURE / Unknown Collection / Unknown 06/20/2021 8:08 PM CDT 06/21/2021 10:49 AM [facility] - 06/21/2021 11:06 AM CDT Based on results, a urine culture has been reflexed. us Nargis Guy MD URINE ORDERABLES Final Result [facility] CLIA# [id number] [place] [address] documented in this encounter Visit Diagnoses Not on filedocumented in this encounter
--- OUTSIDE RECORDS SUMMARY | 2024-12-14 03:36 | XMS_ITS | Clinical Summary ---
Author Organization [facility] Address [address] [place] [address] Care Team Providers Care Chartered Wealth Manager Name Role Phone Karime Aguilera RN, Haresh K MD Primary Care Provider [phone] Source Comments [facility],non-owned Affiliates and Associated Physician Practices is amultiple site organization consisting of ambulatory clinics and hospital sitesin [place], [place], [place] and [place]. This disclosure is being madepursuant to the Care Everywhere program and may not contain all information available regarding this patient. Last updated 18.[facility] Allergies Active Allergy Reactions Criticality Noted Date [...] 1 05/08/2018 Active Blood Glucose Monitoring Suppl (BillGuard VERIO FLEX SYSTEM) w/Device KIT 01/08/2022 Active TRULICITY 1.5 MG/0.5ML injection 03/11/2022 Active ergocalciferol (DRISDOL) 1.25 MG (73860 UT) capsule ergocalciferol (vitamin D2) 1,250 mcg [...] POINT OF CARE (04/04/2022 8:36 AM CDT) [facility] Glucose WB/POC 84 70 - 106 mg/dL 04/04/2022 8:46 AM CDT [facility] Specimen Type Cap Fingerstick 2021 8:46 AM CDT [facility] Blood BLOOD SPECIMEN / Unknown 04/04/2022 8:36 AM CDT 04/04/2022 8:46 AM CDT Tin Khan MD LAB - POINT OF CARE ORDERABLES [facility] [address] [place] [address] from Last 3 Months or Most Recently Relevant to Health Maintenance Advance Directives * Full Code (Latest Code Status on File) Date Activated Date Inactivated Comments 05/07/2018 11:05 AM 05/08/2018 2:57 PM Care Teams Chartered Wealth Manager Relationship Specialty Start Date End Date Gurvinder Renteria MD [address] [place] [address] PCP - General 01/01/22 Karime Aguilera, RN 05/07/18
--- OUTSIDE RECORDS SUMMARY | 2024-12-14 03:36 | XMS_ITS | Encounter Summary ---
Author Organization [facility] Address [address] [place] [address] Care Team Providers Care Manager Distribution Name Role Phone Unavailable Primary Care Provider Unavailabl e Encounter Details Date Type Department Care Team (Late st Contact Info) Description 06/30/2021 Lab Requisition [facility] Laboratory Services [address] [place] [address] [place] [address] [place] [address] Social History Tobacco Use Types [...] Associated Diagnosis Comments CBC WITH DIFFERENTIAL Routine 06/30/2021 3:45 AM CDT COMPREHENSIVE METABOLIC PANEL Routine 06/30/2021 3:45 AM CDT documented in this encounter Results * (ABNORMAL) CBC WITH DIFFERENTIAL (06/30/2021 3:45 AM CDT) WBC 6.7 4.5 - 10.5 K/uL 06/30/2021 11:22 AM CDT [facility] RBC 3.44(L) 3.90 - 4.90 M/uL 06/30/2021 11:22 AM CDT [facility] HEMOGLOBIN 9.4(L) 11.8 - 14.8 g/dL 06/30/2021 11:22 AM [facility] HEMATOCRIT 29.4(L) 35.5 - 44.0 % 06/30/2021 11:22 AM CDT [facility] MCV 85.4 82.0 - 99.0 fL 06/30/2021 11:22 AM CDT [facility] MCH 27.3(L) 27.8 - 34.5 pg 06/30/2021 11:22 AM [facility] MCHC 32.0(L) 32.5 - 35.5 g/dL 06/30/2021 11:22 AM [facility] RDW 15.6(H) 11.5 - 14.5 % 06/30/2021 11:22 AM CDT [facility] PLATELETS 408 160 - 420 K/uL 06/30/2021 11:22 AM [facility] MPV 7.9(L) 8.7 - 12.7 fL 06/30/2021 11:22 AM CDT [facility] SERVICES [facility] NEUTROPHILS 53 % 06/30/2021 11:22 AM CDT [facility] LYMPHOCYTES 33 % 06/30/2021 11:22 AM CDT [facility] SERVICES [facility] MONOCYTES 8 % 06/30/2021 11:22 AM CDT [facility] SERVICES [facility] EOSINOPHILS 5 % 06/30/2021 11:22 AM CDT [facility] SERVICES [facility] BASOPHILS 1 % 06/30/2021 11:22 AM CDT [facility] SERVICES [facility] NEUTROPHIL ABSOLUTE 3.50 1.90 - 7.00 K/uL 06/30/2021 11:22 AM CDT [facility] LYMPHOCYTE ABSOLUTE 2.20 0.70 - 4.50 K/uL 06/30/2021 11:22 AM CDT [facility] MONOCYTE ABSOLUTE 0.50 0.10 - 1.30 K/uL 06/30/2021 11:22 AM CDT [facility] SERVICES [facility] EOSINOPHIL ABSOLUTE 0.30 0.00 - 0.70 K/uL 06/30/2021 11:22 AM CDT [facility] SERVICES [facility] BASOPHILS ABSOLUTE 0.10 0.00 - 0.20 K/uL 06/30/2021 11:22 AM CDT [facility] Blood Collection / Unknown 06/30/2021 3:45 AM CDT 06/30/2021 10:45 AM CDT Nargis Guy MD HEMATOLOGY ORDERABLES Final Resu lt [facility] CLIA# [id number] [address] [place] [address] * (ABNORMAL) COMPREHENSIVE METABOLIC PANEL (06/30/2021 3:45 AM CDT) SODIUM 139 136 - 145 mmol/L 06/30/2021 11:40 AM CDT [facility] POTASSIUM 4.3 3.4 - 5.1 mmol/L 06/30/2021 11:40 AM CDT [facility] CHLORIDE 103 98 - 107 mmol/L 06/30/2021 11:40 AM CDT [facility] CO2 23 22 - 29 mmol/L 06/30/2021 11:40 AM CDT [facility] CALCIUM 8.7 8.6 - 10.4 mg/dL 06/30/2021 11:40 AM CDT [facility] BUN 12 6 - 20 mg/dL 06/30/2021 11:40 AM CDT [facility] SERVICES [facility] CREATININE 0.89 0.51 - 0.95 mg/dL 06/30/2021 11:40 AM CDT [facility] GLUCOSE 107(H) 74 - 99 mg/dL 06/30/2021 11:40 AM CDT [facility] TOTAL PROTEIN 6.0(L) 6.3 - 8.7 g/dL 06/30/2021 11:40 AM [facility] ALBUMIN 2.7(L) 3.5 - 5.2 g/dL 06/30/2021 11:40 AM T [facility] BILIRUBIN TOTAL <0.2(L) 0.2 - 1.1 mg/dL 06/30/2021 11:40 AM T [facility] ALKALINE PHOSPHATASE 110 40 - 150 U/L 06/30/2021 11:40 AM T [facility] AST 23 0 - 33 U/L 06/30/2021 11:40 AM [facility] ALT 18 0 - 33 U/L 06/30/2021 11:40 AM [facility] GFR >60 mL/min/1.7 3 sq meter 06/30/2021 11:40 AM T [facility] Comment: eGFR has not been validated [...] result. GFR, >60 mL/min/1.7 3 sq meter 06/30/2021 11:40 AM CDT [facility] ANION GAP 13 8 - 16 mmol/L 06/30/2021 11:40 AM T [facility] Blood Collection / Unknown 06/30/2021 3:45 AM CDT 06/30/2021 10:45 AM CDT us Nargis Guy MD CHEMISTRY ORDERABLES Final Resul t [facility] CLIA# [id number] [place] [address] documented in this encounter Visit Diagnoses Not on filedocumented in this encounter
--- OUTSIDE RECORDS SUMMARY | 2024-12-14 03:36 | XMS_ITS | Encounter Summary ---
Author Organization [facility] Address [address] [place] [address] Care Team Providers Care Electric Motor Controls Assembler Name Role Phone Unavailable Primary Care Provider Unavailabl e Encounter Details Date Type Department Care Team (Late st Contact Info) Description 07/13/2021 Lab Requisition [facility] [address] [place] [address] [place] [address] [place] [address] Social History Tobacco Use Types [...] Procedure Name Priority Date/Time Associated Diagnosis Comments HEMOGLOBIN A1C Routine 07/13/2021 6:30 AM CDT documented in this encounter Results * (ABNORMAL) HEMOGLOBIN A1C (07/13/2021 6:30 AM CDT) HEMOGLOBIN A1C 6.2(H) <=5.6 % 07/13/2021 10:36 AM CDT [facility] EST. AVG GLUCOSE, A1C 131 mg/dL 07/13/2021 10:36 AM CDT [facility] Blood Collection / Unknown 07/13/2021 6:30 AM CDT 07/13/2021 10:06 AM CDT Narrative [facility] - 07/13/2021 10:36 AM CDT HGB A1C INTERPRETATION NORMAL: ? <5.7% PRE-DIABETES: 5.7 - 6.4% DIABETES: ? 6.5% OR GREATER Nargis Guy MD CHEMISTRY ORDERABLES Final Resul t [facility] CLIA# [id number] [place] [address] documented in this encounter Visit Diagnoses Not on filedocumented in this encounter
--- OUTSIDE RECORDS SUMMARY | 2024-12-14 03:36 | XMS_ITS | Clinical Summary ---
Author Organization [facility] Address [address] [place] [address] Care Team Providers Care C Python Developer Name Role Phone Unavailable Primary Care Provider Unavailabl e Allergies Active Allergy Reactions Criticality Noted Date Comments Aspirin Unknown 05/19/2021 Codeine Unknown 05/19/2021 Morphine Unknown 05/19/2021 Ticagrelor Unknown 05/19/2021 Medications QUEtiapine (SEROquel) 50 mg tablet quetiapine 50 mg tablet Active SUMAtriptan (IMITREX) 50 mg tablet sumatriptan 50 mg tablet Active ergocalciferol (VITAMIN D2) 50,000 unit capsule ergocalciferol (vitamin D2) 1,250 mcg (50,000 unit) capsule Act nabila rOPINIRole (REQUIP) 3 mg Tablet ropinirole 3 mg tablet Active lisinopriL (PRINIVIL) 30 mg tablet lisinopril 30 mg tablet Active nortriptyline (PAMELOR) 25 mg capsule nortriptyline 25 mg capsule Active hydroCHLOROthia zide 25 mg tablet hydrochlorothiazide 25 mg tablet Active lancets (OneTouch Delica Plus Lancet) 30 gauge OneTouch Delica Plus Lancet 30 gauge Active blood sugar diagnostic (OneTouch Verio test strips) Strip OneTouch Verio test strips Active Blood-Glucose Meter (OneTouch Verio Flex meter) OneTouch Verio Flex Meter Active Insulin Calvin, Disposable, (TRUEplus Pen Needle) 31 gauge x 5/16 Needle TRUEplus Pen Needle 31 gauge x 5/16 Active budesonide-form oteroL (SYMBICORT) 160-4.5 mcg/actuation HFA Aerosol Inhaler Symbicort 160 mcg-4.5 mcg/actuation HFA aerosol inhaler Active nystatin (MYCOSTATIN) 100,000 unit/gram Cream nystatin 100,000 unit/gram topical cream Active oxybutynin chloride (DITROPAN XL) 5 mg Extended Release 24 hour tablet oxybutynin chloride ER 5 mg tablet,extended release 24 hr Active gabapentin (NEURONTIN) 300 mg capsule Take 1 Capsule (300 mg) by mouth every 8 hours. 60 Capsule Active HYDROcodone-endy taminophen (NORCO) 5-325 mg tabletIndicatio ns:Lactic acidosis Take 1 Tablet by mouth every 6 hours as needed for Pain, Moderate. Max Daily Amount: 4 Tablets 20 Tablet Active insulin glargine (LANTUS) 100 unit/mL injection Inject 20 Units by subcutaneous injection daily with breakfast. 3 mL 1 Active insulin lispro (HumaLOG) 100 unit/mL pen syringe Inject 0-9 Units by subcutaneous injection 3 times daily with meals. 15 mL 1 Active ipratropium-alb uteroL (DUONEB) 0.5 mg-3 mg(2.5 mg base)/3 mL Solution for Nebulization Take 3 mL by inhalation now and then every 6 hours. 360 mL Active melatonin 3 mg Tablet Take 1 Tablet (3 mg) by mouth nightly as needed for Insomnia. 30 Tablet Active Active Problems Problem Noted Date Diagnosed Date Type 2 diabetes mellitus with hyperglycemia 07/2021 Acute hypoxemic respiratory failure 05/19/2021 Severe sepsis without septic shock Social History Tobacco Use Types Packs/Day Years Used Date Smoking Tobacco: Unknown Comments Unknown Sex and Gender Information Value Date Recorded Sex Assigned at Not on file Legal Sex Female 11:57 PM CDT Gender Identity Not on file Sexual Orientation Not on file Last Filed Vital Signs Vital Sign Reading Time Taken Comments Blood Pressure 140/97 05/25/2021 7:33 PM CDT Pulse 92 05/25/2021 9:52 PM CDT Temperature 37.3 ??C (99.2 ??F) 05/25/2021 7:33 PM CD T Respiratory Rate 18 05/25/2021 9:52 PM CDT Oxygen Saturation 97% 05/25/2021 9:47 PM CDT Inhaled Oxygen Concentration - - Weight 151.8 kg (334 lb 9.6 oz) 05/19/2021 8:03 AM CDT Height 160 cm (5' 3 ) 05/19/2021 5:48 AM CDT Body Mass Index 59.27 05/19/2021 5:48 AM CDT Plan of Treatment Health Maintenance Due Date Last Done Comments PNEUMOCOCCAL VACCINE 0-64 YE ARS (1 of 2 - PCV) 1967 DIABETES ANNUAL FOOT EXAM 1979 DIABETES ANNUAL RETINAL EXAM 1979 DIABETES MICROALBUMIN ANNUAL SCREEN 1979 LDL CHOLESTEROL ANNUAL 1979 DTAP/TDAP/TD VACCINES (1 - Tdap) 1980 BREAST CANCER SCREENING 2001 COLORECTAL SCREENING 2006 Colorectal Cancer Screening 2006 FIT-DNA Q 3 years 2006 FIT/FOBT Q 1 year 2006 Flex Sig/CT Colonography Q 5 years 2006 ZOSTER VACCINE (1 of 2) 2011 RSV VACCINE (60+ or ) (1 - Risk 60-74 years 1-dose series) 2021 DIABETES HBA1C Q 6 MONTHS 01/13/2022 07/13/2021, INFLUENZA VACCINE (#1) 2024 09/08/2018, 2016 CERVICAL CANCER SCREENING 03/24/2027 03/24/2024 Procedures Procedure Name Priority Date/Time Associated Diagnosis Comments HEMOGLOBIN A1C Routine 07/13/2021 6:30 AM CDT from Last 3 Months or Most Recently Relevant to Health Maintenance Results * (ABNORMAL) HEMOGLOBIN A1C (07/13/2021 6:30 AM CDT) HEMOGLOBIN A1C 6.2(H) <=5.6 % 07/13/2021 10:36 AM CDT [facility] EST. AVG GLUCOSE, A1C 131 mg/dL 07/13/2021 10:36 AM CDT [facility] Blood Collection / Unknown 07/13/2021 6:30 AM CDT 07/13/2021 10:06 AM CDT Narrative [facility]ORATORY [facility] - 07/13/2021 10:36 AM CDT HGB A1C INTERPRETATION NORMAL: ? <5.7% PRE-DIABETES: 5.7 - 6.4% DIABETES: ? 6.5% OR GREATER Nargis Guy MD CHEMISTRY ORDERABLES Final Resul t [facility] LABORATORY SERVICES [facility] CLIA# [id number] [place] [address] from Last 3 Months or Most Recently Relevant to Health Maintenance Insurance [facility] MEDICAID RX [employer] Medicare [place] [address] Advance Directives For more information, please contact: [phone] * Full Code (Latest Code Status on File) Date Activated Date Inactivated Comments 05/19/2021 12:52 PM 05/26/2021 12:57 AM
--- OUTSIDE RECORDS SUMMARY | 2024-12-14 03:36 | XMS_ITS | Encounter Summary ---
Author Organization [facility] Address [address] [place] [address] Care Team Providers Care Project Manager Retail Name Role Phone Unavailable Primary Care Provider Unavailabl e Encounter Details Date Type Department Care Team (Late st Contact Info) Description 06/21/[address] [facility] [address] [place] [address] [place] [address] [place] [address] Social History Tobacco Use Types [...] Associated Diagnosis Comments CBC WITH DIFFERENTIAL Routine 06/21/2021 11:20 AM CDT COMPREHENSIVE METABOLIC PANEL Routine 06/21/2021 11:20 AM CDT documented in this encounter Results * (ABNORMAL) CBC WITH DIFFERENTIAL (06/21/2021 11:20 AM CDT) WBC 7.9 4.5 - 10.5 K/uL 06/21/2021 1:[address] [facility] RBC 3.66(L) 3.90 - 4.90 M/uL 06/21/2021 1:36 PM [facility] HEMOGLOBIN 10.1(L) 11.8 - 14.8 g/dL 06/21/2021 1:36 PM [facility] HEMATOCRIT 31.1(L) 35.5 - 44.0 % 06/21/2021 1:[address] [facility] MCV 84.9 82.0 - 99.0 fL 06/21/2021 1:36 PM [facility] MCH 27.5(L) 27.8 - 34.5 pg 06/21/2021 1:36 PM [facility] MCHC 32.3(L) 32.5 - 35.5 g/dL 06/21/2021 1:36 PM [facility] RDW 15.7(H) 11.5 - 14.5 % 06/21/2021 1:[address] [facility] PLATELETS 397 160 - 420 K/uL 06/21/2021 1:36 PM [facility] MPV 7.6(L) 8.7 - 12.7 fL 06/21/2021 1:[address] [facility] NEUTROPHILS 64 % 06/21/2021 1:[address] [facility] LYMPHOCYTES 26 % 06/21/2021 1:[address] [facility] MONOCYTES 7 % 06/21/2021 1:[address] [facility] SERVICES [facility] EOSINOPHILS 3 % 06/21/2021 1:[address] [facility] BASOPHILS 0 % 06/21/2021 1:[address] [facility] NEUTROPHIL ABSOLUTE 5.00 1.90 - 7.00 K/uL 06/21/2021 1:[address] [facility] LYMPHOCYTE ABSOLUTE 2.00 0.70 - 4.50 K/uL 06/21/2021 1:[address] [facility] MONOCYTE ABSOLUTE 0.50 0.10 - 1.30 K/uL 06/21/2021 1:[address] [facility] SERVICES [facility] EOSINOPHIL ABSOLUTE 0.30 0.00 - 0.70 K/uL 06/21/2021 1:[address] [facility] SERVICES [facility] BASOPHILS ABSOLUTE 0.00 0.00 - 0.20 K/uL 06/21/2021 1:[address] [facility] Blood Collection / Unknown 06/21/2021 11:20 AM CDT 06/21/2021 1:28 PM CDT Nargis Guy MD HEMATOLOGY ORDERABLES Final Resu lt [facility] CLIA# [id number] [place] [address] * (ABNORMAL) COMPREHENSIVE METABOLIC PANEL (06/21/2021 11:20 AM CDT) Pathologist [facility] SODIUM 137 136 - 145 mmol/L 06/21/2021 2:02 PM CDT [facility] POTASSIUM 4.3 3.4 - 5.1 mmol/L 06/21/2021 2:[address] [facility] CHLORIDE 102 98 - 107 mmol/L 06/21/2021 2:[address] [facility] CO2 25 22 - 29 mmol/L 06/21/2021 2:[address] [facility] CALCIUM 9.2 8.6 - 10.4 mg/dL 06/21/2021 2:[address] [facility] BUN 11 6 - 20 mg/dL 06/21/2021 2:[address] [facility] CREATININE 0.90 0.51 - 0.95 mg/dL 06/21/2021 2:[address] [facility] GLUCOSE 130(H) 74 - 99 mg/dL 06/21/2021 2:[address] [facility] TOTAL PROTEIN 6.6 6.3 - 8.7 g/dL 06/21/2021 2:02 PM T [facility] ALBUMIN 2.8(L) 3.5 - 5.2 g/dL 06/21/2021 2:02 PM T [facility] BILIRUBIN TOTAL 0.2(L) 0.3 - 1.2 mg/dL 06/21/2021 2:02 PM T [facility] ALKALINE PHOSPHATASE 120 40 - 150 U/L 06/21/2021 2:02 PM T [facility] AST 27 0 - 33 U/L 06/21/2021 2:02 PM [facility] ALT 23 0 - 33 U/L 06/21/2021 2:02 PM T [facility] GFR >60 mL/min/1.7 3 sq meter 06/21/2021 2:02 PM T [facility] Comment: eGFR has not been validated for [...] result. GFR, >60 mL/min/1.7 3 sq meter 06/21/2021 2:02 PM CDT [facility] ANION GAP 10 8 - 16 mmol/L 06/21/2021 2:02 PM T [facility] Blood Collection / Unknown 06/21/2021 11:20 AM CDT 06/21/2021 1:28 PM CDT us Nargis Guy MD CHEMISTRY ORDERABLES Final Resul t [facility] CLIA# [id number] [place] [address] documented in this encounter Visit Diagnoses Not on filedocumented in this encounter
--- OUTSIDE RECORDS SUMMARY | 2024-12-14 03:36 | XMS_ITS | Encounter Summary ---
Author Organization [facility] Address [address] [place] [address] Care Team Providers Care Cut Press Operator Name Role Phone Karime Aguilera RN, Haresh K MD Primary Care Provider [phone] Reason for Visit * Reason Onset Date Comments Request Lab Order 09/10/2023 Imaging 09/10/2023 Encounter Details Date Type Department Care Team (Late st Contact Info) Description 09/10/2023 Telephone [facility] - AIRPLANE CLEANER [address] [place] [address] Christy Khan MD [address] [place] [address] Request Lab Order; Imaging Social [...] needs screening mammogram ordered and sent to [facility]. RN ordered and faxed to [phone] RN scheduled pt for WWE 10/14/2023 9:15 AM Christy Khan MD Pt accepts appt * Telephone Encounter - Nataliia Bangura - 09/10/2023 10:05 AM CDT Pt wants Mammogram order sent to [facility] in [place], [place]. documented in this encounter Plan of Treatment Not on file documented as of this encounter Visit Diagnoses Diagnosis Encounter for screening mammogram for malignant neoplasm of breast- Primary Other screening mammogram documented in this encounter Care Teams Cut Press Operator Relationship Specialty Start Date End Date Gurvinder Renteria MD [address] [place] [address] PCP - General 01/01/22 Karime Aguilera RN 05/07/18 documented as of this encounter
--- OUTSIDE RECORDS SUMMARY | 2024-12-14 03:36 | XMS_ITS | Encounter Summary ---
Author Organization [facility] Address [address] [place] [address] Care Team Providers Care Pet Sitter Name Role Phone Karime Aguilera RN, Haresh K MD Primary Care Provider [phone] Reason for Visit * Reason Onset Date Comments Question 10/29/2023 Encounter Details Date Type Department Care Team (Late st Contact Info) Description 10/29/2023 Telephone [facility] - GOODYEAR STITCHER [address] [place] [address] Christy Khan MD [address] [facility] [address] [place] [address] Question Social History Tobacco Use [...] Yesenia Shin RN - 10/29/2023 1:16 PM ASSEMBLY MACHINE TOOL SETTER RN returned pt call & gathered further [...] pt's provider MD Alonso of above issues. MBLY MACHINE TOOL SETTER * Telephone Encounter - Ignacio Ferny - 10/29/2023 12:40 PM CST Patient called stating she has a potential yeast infection and wanted to see about getting a prescription. Offered patient an appt, she preferred Dr Khan, put her down for next available on 11/26. MBLY MACHINE TOOL SETTER documented in this encounter Plan of Treatment Not on file documented as of this encounter Visit Diagnoses Not on filedocumented in this encounter Care Teams Pet Sitter Relationship Specialty Start Date End Date Gurvinder Renteria MD [address] [place] [address] PCP - General 01/01/22 Karime Aguilera, RN 05/07/18 documented as of this encounter
--- OUTSIDE RECORDS SUMMARY | 2024-12-14 03:36 | XMS_ITS | Encounter Summary ---
Author Organization [facility] Address [address] [place] [address] Care Team Providers Care Chief Ophthalmic Technician Name Role Phone Unavailable Primary Care Provider Unavailabl e Encounter Details Date Type Department Care Team (Late st Contact Info) Description 07/05/2021 Lab Requisition [facility] [address] [place] [address] [place] [address] [place] [address] Social History Tobacco Use Types [...] Associated Diagnosis Comments CBC WITH DIFFERENTIAL Routine 07/05/2021 6:00 AM CDT COMPREHENSIVE METABOLIC PANEL Routine 07/05/2021 6:00 AM CDT documented in this encounter Results * (ABNORMAL) CBC WITH DIFFERENTIAL (07/05/2021 6:00 AM CDT) WBC 6.5 4.5 - 10.5 K/uL 07/05/2021 10:39 AM CDT [facility] RBC 3.78(L) 3.90 - 4.90 M/uL 07/05[facility]21 10[facility] HEMOGLOBIN 10.0(L) 11.8 - 14.8 g/dL 07/05/2021 10:39 [facility] HEMATOCRIT 31.8(L) 35.5 - 44.0 % 07/05/2021 10:39 AM CDT [facility] MCV 84.2 82.0 - 99.0 fL 07/05/2021 10:39 [facility] MCH 26.5(L) 27.8 - 34.5 pg 07/05/2021 10:39 [facility] MCHC 31.5(L) 32.5 - 35.5 g/dL 07/05/2021 10:39 [facility] RDW 15.4(H) 11.5 - 14.5 % 07/05/2021 10:39 AM CDT [facility] PLATELETS 368 160 - 420 K/uL 07/05/2021 10:39 [facility] MPV 7.5(L) 8.7 - 12.7 fL 07/05/2021 10:39 AM CDT [facility] NEUTROPHILS 53 % 07/05/2021 10:39 AM CDT [facility] LYMPHOCYTES 33 % 07/05/2021 10:39 AM CDT [facility] MONOCYTES 8 % 07/05/2021 10:39 AM CDT [facility]ORAT[facility] SERVICES [facility] EOSINOPHILS 5 % 07/05/2021 10:39 AM CDT [facility] SERVICES [facility] BASOPHILS 1 % 07/05/2021 10:39 AM CDT [facility] NEUTROPHIL ABSOLUTE 3.40 1.90 - 7.00 K/uL 07/05/2021 10:39 AM CDT [facility] LYMPHOCYTE ABSOLUTE 2.20 0.70 - 4.50 K/uL 07/05/2021 10:39 AM CDT [facility] MONOCYTE ABSOLUTE 0.50 0.10 - 1.30 K/uL 07/05/2021 10:39 AM CDT [facility] SERVICES - [facility] EOSINOPHIL ABSOLUTE 0.30 0.00 - 0.70 K/uL 07/05/2021 10:39 AM CDT [facility] SERVICES - [facility] BASOPHILS ABSOLUTE 0.10 0.00 - 0.20 K/uL 07/05/2021 10:39 AM CDT [facility] SERVICES [facility] Blood Collection / Unknown 07/05/2021 6:00 AM CDT 07/05/2021 10:24 AM CDT Nargis Guy MD HEMATOLOGY ORDERABLES Final Resu lt [facility] CLIA# [id number] [place] [address] * (ABNORMAL) COMPREHENSIVE METABOLIC PANEL (07/05/2021 6:00 AM CDT) SODIUM 139 136 - 145 mmol/L 07/05/2021 11:04 AM CDT [facility] POTASSIUM 4.5 3.4 - 5.1 mmol/L 07/05/2021 11:04 AM CDT [facility] SERVICES [facility] CHLORIDE 102 98 - 107 mmol/L 07/05/2021 11:04 AM CDT [facility] SERVICES [facility] CO2 25 22 - 29 mmol/L 07/05/2021 11:04 AM CDT [facility] SERVICES [facility] CALCIUM 9.1 8.6 - 10.4 mg/dL 07/05/2021 11:04 AM CDT [facility] SERVICES [facility] BUN 14 6 - 20 mg/dL 07/05/2021 11:04 AM CDT [facility] SERVICES [facility] CREATININE 0.95 0.51 - 0.95 mg/dL 07/05/2021 11:04 AM CDT [facility] SERVICES [facility] GLUCOSE 101(H) 74 - 99 mg/dL 07/05/2021 11:04 AM CDT [facility] SERVICES [facility] TOTAL PROTEIN 6.1(L) 6.3 - 8.7 g/dL 07/05/2021 11:04 AM [facility] ALBUMIN 2.9(L) 3.5 - 5.2 g/dL 07/05/2021 11:04 AM [facility] BILIRUBIN TOTAL <0.2(L) 0.2 - 1.1 mg/dL 07/05/2021 11:04 AM [facility] ALKALINE PHOSPHATASE 107 40 - 150 U/L 07/05/2021 11:04 AM [facility] AST 16 0 - 33 U/L 07/05/2021 11:04 AM [facility] ALT 13 0 - 33 U/L 07/05/2021 11:04 AM [facility] GFR 60 mL/min/1.7 3 sq meter 07/05/2021 11:04 AM [facility] Comment: eGFR has not been validated for [...] result. GFR, >60 mL/min/1.7 3 sq meter 07/05/2021 11:04 AM T [facility] ANION GAP 12 8 - 16 mmol/L 07/05/2021 11:04 AM [facility] Blood Collection / Unknown 07/05/2021 6:00 AM CDT 07/05/2021 10:24 AM CDT us Nargis Guy MD CHEMISTRY ORDERABLES Final Resul t [facility] CLIA# [id number] [place] [address] documented in this encounter Visit Diagnoses Not on filedocumented in this encounter
--- OUTSIDE RECORDS SUMMARY | 2024-12-14 03:36 | XMS_ITS | Encounter Summary ---
Author Organization [facility] Address [address] [place] [address] Care Team Providers Care Utility Accounts Director Name Role Phone Unavailable Primary Care Provider Unavailabl e Encounter Details Date Type Department Care Team (Late st Contact Info) Description 06/24/2021 Lab Requisition [facility] Laboratory Services [address] [place] [address] [place] [address] [place] [address] Social History Tobacco Use Types [...] Associated Diagnosis Comments CBC WITH DIFFERENTIAL Routine 06/24/2021 4:30 AM CDT COMPREHENSIVE METABOLIC PANEL Routine 06/24/2021 4:30 AM CDT documented in this encounter Results * (ABNORMAL) CBC WITH DIFFERENTIAL (06/24/2021 4:30 AM CDT) WBC 6.7 4.5 - 10.5 K/uL 06/24/2021 6:33 AM CDT [facility] RBC 3.59(L) 3.90 - 4.90 M/uL 06/24/2021 6:33 AM CDT [facility] HEMOGLOBIN 9.8(L) 11.8 - 14.8 g/dL 06/24/2021 6:33 AM CDT [facility] HEMATOCRIT 30.2(L) 35.5 - 44.0 % 06/24/2021 6:33 AM CDT [facility] MCV 84.3 82.0 - 99.0 fL 06/24/2021 6:33 AM CDT [facility] MCH 27.3(L) 27.8 - 34.5 pg 06/24/2021 6:33 AM CDT [facility] MCHC 32.4(L) 32.5 - 35.5 g/dL 06/24/2021 6:33 AM CDT [facility] RDW 15.9(H) 11.5 - 14.5 % 06/24/2021 6:33 AM CDT [facility] PLATELETS 353 160 - 420 K/uL 06/24/2021 6:33 AM CDT [facility] MPV 8.2(L) 8.7 - 12.7 fL 06/24/2021 6:33 AM CDT [facility] NEUTROPHILS 54 % 06/24/2021 6:33 AM CDT [facility] LYMPHOCYTES 34 % 06/24/2021 6:33 AM CDT [facility] MONOCYTES 8 % 06/24/2021 6:33 AM CDT [facility] EOSINOPHILS 4 % 06/24/2021 6:33 AM CDT [facility] BASOPHILS 1 % 06/24/2021 6:33 AM CDT [facility] NEUTROPHIL ABSOLUTE 3.60 1.90 - 7.00 K/uL 06/24/2021 6:33 AM CDT [facility] LYMPHOCYTE ABSOLUTE 2.20 0.70 - 4.50 K/uL 06/24/2021 6:33 AM CDT [facility] MONOCYTE ABSOLUTE 0.50 0.10 - 1.30 K/uL 06/24/2021 6:33 AM CDT [facility] SERVICES [facility] EOSINOPHIL ABSOLUTE 0.20 0.00 - 0.70 K/uL 06/24/2021 6:33 AM CDT [facility] SERVICES [facility] BASOPHILS ABSOLUTE 0.10 0.00 - 0.20 K/uL 06/24/2021 6:33 AM CDT [facility] Blood 06/24/2021 4:30 AM CDT 06/24/2021 6:18 AM CDT us Nargis Guy MD HEMATOLOGY ORDERABLES Final Resu lt [facility] CLIA# [id number] [place] [address] * (ABNORMAL) COMPREHENSIVE METABOLIC PANEL (06/24/2021 4:30 AM CDT) SODIUM 140 136 - 145 mmol/L 06/24/2021 6:58 AM CDT [facility] POTASSIUM 4.6 3.4 - 5.1 mmol/L 06/24/2021 6:58 AM CDT [facility] CHLORIDE 105 98 - 107 mmol/L 06/24/2021 6:58 AM CDT [facility] CO2 22 22 - 29 mmol/L 06/24/2021 6:58 AM CDT [facility] CALCIUM 8.9 8.6 - 10.4 mg/dL 06/24/2021 6:58 AM CDT [facility] BUN 11 6 - 20 mg/dL 06/24/2021 6:58 AM CDT [facility] CREATININE 0.93 0.51 - 0.95 mg/dL 06/24/2021 6:58 AM CDT [facility] GLUCOSE 97 74 - 99 mg/dL 06/24/2021 6:58 AM CDT [facility] TOTAL PROTEIN 6.3 6.3 - 8.7 g/dL 06/24/2021 6:58 AM CDT [facility] ALBUMIN 2.7(L) 3.5 - 5.2 g/dL 06/24/2021 6:58 AM T [facility] BILIRUBIN TOTAL 0.2(L) 0.3 - 1.2 mg/dL 06/24/2021 6:58 AM T [facility] ALKALINE PHOSPHATASE 110 40 - 150 U/L 06/24/2021 6:58 AM CDT [facility] AST 24 0 - 33 U/L 06/24/2021 6:58 AM T [facility] ALT 20 0 - 33 U/L 06/24/2021 6:58 AM T [facility] GFR >60 mL/min/1.7 3 sq meter 06/24/2021 6:58 AM T [facility] Comment: eGFR has not been validated [...] result. GFR, >60 mL/min/1.7 3 sq meter 06/24/2021 6:58 AM CDT [facility] ANION GAP 13 8 - 16 mmol/L 06/24/2021 6:58 AM T [facility] Blood 06/24/2021 4:30 AM CDT 06/24/2021 6:18 AM CDT us Nargis Guy MD CHEMISTRY ORDERABLES Final Resul t [facility] CLIA# [id number] [address] [place] [address] documented in this encounter Visit Diagnoses Not on filedocumented in this encounter
--- OUTSIDE RECORDS SUMMARY | 2024-12-14 03:36 | XMS_ITS | Encounter Summary ---
Author Organization [facility] Address [address] [place] [address] Care Team Providers Care Charge Manager Name Role Phone Unavailable Primary Care Provider Unavailabl e Encounter Details Date Type Department Care Team (Late st Contact Info) Description 07/09/2021 Lab Requisition [facility] Laboratory Services [address] [place] [address] [facility], External Provider [address] [place] [address] Social History Tobacco Use Types Packs/Day Years [...] Associated Diagnosis Comments CBC WITH DIFFERENTIAL Routine 07/09/2021 4:00 AM CDT PREALBUMIN Routine 07/09/2021 4:00 AM CDT COMPREHENSIVE METABOLIC PANEL Routine 07/09/2021 4:00 AM CDT documented in this encounter Results * (ABNORMAL) PREALBUMIN (07/09/2021 4:00 AM CDT) PREALBUMIN 17(L) 20 - 40 mg/dL 07/09/2021 10:[facility] / Unknown 07/09/2021 4:00 AM CDT 07/09/2021 6:02 AM CDT us External Provider [facility] CHEMISTRY ORDERABLES Jennie inocencio Result [facility] CLIA# [id number] [address] [facility] [place] [address] * (ABNORMAL) CBC WITH DIFFERENTIAL (07/09/2021 4:00 AM CDT) WBC 7.3 4.5 - 10.5 K/uL 07/09/2021 6:20 AM CDT [facility] RBC 3.75(L) 3.90 - 4.90 M/uL 07/09/2021 6:20 AM CDT [facility] HEMOGLOBIN 10.0(L) 11.8 - 14.8 g/dL 07/09/2021 6:20 AM CDT [facility] HEMATOCRIT 31.5(L) 35.5 - 44.0 % 07/09/2021 6:20 AM CDT [facility] MCV 83.8 82.0 - 99.0 fL 07/09/2021 6:20 AM CDT [facility] MCH 26.8(L) 27.8 - 34.5 pg 07/09/2021 6:20 AM CDT [facility] MCHC 31.9(L) 32.5 - 35.5 g/dL 07/09/2021 6:20 AM CDT [facility] RDW 15.7(H) 11.5 - 14.5 % 07/09/2021 6:20 AM CDT [facility] PLATELETS 374 160 - 420 K/uL 07/09/2021 6:20 AM CDT [facility] MPV 7.8(L) 8.7 - 12.7 fL 07/09/2021 6:20 AM CDT [facility] [employer] [facility] NEUTROPHILS 52 % 07/09/2021 6:20 AM CDT [facility] LABORATORY SERVICES [facility] LYMPHOCYTES 36 % 07/09/2021 6:20 AM CDT [facility]ORY SERVICES [facility] MONOCYTES 6 % 07/09/2021 6:20 AM CDT [facility] SERVICES [facility] EOSINOPHILS 5 % 07/09/2021 6:20 AM CDT [facility] SERVICES [facility] BASOPHILS 1 % 07/09/2021 6:20 AM CDT [facility] SERVICES [facility] NEUTROPHIL ABSOLUTE 3.80 1.90 - 7.00 K/uL 07/09/2021 6:20 AM CDT [facility]ORY SERVICES [facility] LYMPHOCYTE ABSOLUTE 2.60 0.70 - 4.50 K/uL 07/09/2021 6:20 AM CDT [facility]ORY SERVICES [facility] MONOCYTE ABSOLUTE 0.50 0.10 - 1.30 K/uL 07/09/2021 6:20 AM CDT [facility]OR[facility]ORY SERVICES [facility] EOSINOPHIL ABSOLUTE 0.40 0.00 - 0.70 K/uL 07/09/2021 6:20 AM CDT [facility]ORATORY SERVICES [facility] BASOPHILS ABSOLUTE 0.10 0.00 - 0.20 K/uL 07/09/2021 6:20 AM CDT [facility] SERVICES [facility] Blood Collection / Unknown 07/09/2021 4:00 AM CDT 07/09/2021 6:02 AM CDT us External Provider [facility] HEMATOLOGY ORDERABLES Fin al Result [facility] CLIA# [id number] [place] [address] * (ABNORMAL) COMPREHENSIVE METABOLIC PANEL (07/09/2021 4:00 AM CDT) SODIUM 137 136 - 145 mmol/L 07/09/2021 6:41 AM CDT [facility] POTASSIUM 4.4 3.4 - 5.1 mmol/L 07/09/2021 6:41 AM CDT [facility] CHLORIDE 101 98 - 107 mmol/L 07/09/2021 6:41 AM [facility] CO2 24 22 - 29 mmol/L 07/09/2021 6:41 AM [facility] CALCIUM 9.2 8.6 - 10.4 mg/dL 07/09/2021 6:41 AM [facility] BUN 15 6 - 20 mg/dL 07/09/2021 6:41 AM [facility] CREATININE 0.92 0.51 - 0.95 mg/dL 07/09/2021 6:41 AM [facility] GLUCOSE 129(H) 74 - 99 mg/dL 07/09/2021 6:41 AM [facility] TOTAL PROTEIN 6.5 6.3 - 8.7 g/dL 07/09/2021 6:41 AM [facility] ALBUMIN 3.1(L) 3.5 - 5.2 g/dL 07/09/2021 6:41 AM [facility] BILIRUBIN TOTAL <0.2(L) 0.2 - 1.1 mg/dL 07/09/2021 6:41 AM [facility] ALKALINE PHOSPHATASE 99 40 - 150 U/L 07/09/2021 6:41 AM [facility] AST 15 0 - 33 U/L 07/09/2021 6:41 AM [facility] ALT 11 0 - 33 U/L 07/09/2021 6:41 AM [facility] GFR >60 mL/min/1.7 3 sq meter 07/09/2021 6:41 AM [facility] Comment: eGFR has not been validated for [...] result. GFR, >60 mL/min/1.7 3 sq meter 07/09/2021 6:41 AM CDT [facility]ORY SERVICES [facility] ANION GAP 12 8 - 16 mmol/L 07/09/2021 6:41 AM CDT [facility] Blood Collection / Unknown 07/09/2021 4:00 AM CDT 07/09/2021 6:02 AM CDT us External Provider [facility] CHEMISTRY ORDERABLES Jennie l Result [facility] [employer] [facility] CLIA# [id number] [place] [address] documented in this encounter Visit Diagnoses Not on filedocumented in this encounter
--- OUTSIDE RECORDS SUMMARY | 2024-12-14 03:36 | XMS_ITS | Encounter Summary ---
Author Organization [facility] Address [address] [place] [address] Care Team Providers Care Dobie Worker Name Role Phone Unavailable Primary Care Provider Unavailabl e Encounter Details Date Type Department Care Team (Late st Contact Info) Description 07/08/2021 Lab Requisition [facility] Laboratory Services [address] [place] [address] [place] [address] [place] [address] Social History Tobacco Use Types [...] Associated Diagnosis Comments CBC WITH DIFFERENTIAL Routine 07/08/2021 5:30 AM CDT COMPREHENSIVE METABOLIC PANEL Routine 07/08/2021 5:30 AM CDT documented in this encounter Results * (ABNORMAL) CBC WITH DIFFERENTIAL (07/08/2021 5:30 AM CDT) WBC 6.4 4.5 - 10.5 K/uL 07/08/2021 7:17 AM CDT [facility] RBC 3.47(L) 3.90 - 4.90 M/uL 07/08/2021 7:17 AM CDT [facility] HEMOGLOBIN 9.4(L) 11.8 - 14.8 g/dL 07/08/2021 7:[facility] HEMATOCRIT 29.2(L) 35.5 - 44.0 % 07/08/2021 7:17 AM CDT [facility] MCV 84.2 82.0 - 99.0 fL 07/08/2021 7:17 AM CDT [facility] MCH 27.1(L) 27.8 - 34.5 pg 07/08/2021 7:17 AM [facility] MCHC 32.1(L) 32.5 - 35.5 g/dL 07/08/2021 7:17 AM [facility] RDW 15.8(H) 11.5 - 14.5 % 07/08/2021 7:17 AM CDT [facility] PLATELETS 368 160 - 420 K/uL 07/08/2021 7:17 AM [facility] MPV 7.6(L) 8.7 - 12.7 fL 07/08/2021 7:17 AM CDT [facility] NEUTROPHILS 55 % 07/08/2021 7:17 AM CDT [facility] LYMPHOCYTES 32 % 07/08/2021 7:17 AM CDT [facility]ORATORY SERVICES [facility] MONOCYTES 7 % 07/08/2021 7:17 AM CDT [facility]ORY SERVICES [facility] EOSINOPHILS 5 % 07/08/2021 7:17 AM CDT [facility] SERVICES [facility] BASOPHILS 1 % 07/08/2021 7:17 AM CDT [facility] NEUTROPHIL ABSOLUTE 3.50 1.90 - 7.00 K/uL 07/08/2021 7:17 AM CDT [facility] LYMPHOCYTE ABSOLUTE 2.00 0.70 - 4.50 K/uL 07/08/2021 7:17 AM CDT [facility] MONOCYTE ABSOLUTE 0.50 0.10 - 1.30 K/uL 07/08/2021 7:17 AM CDT [facility] LABORATORY SERVICES [facility] EOSINOPHIL ABSOLUTE 0.30 0.00 - 0.70 K/uL 07/08/2021 7:17 AM CDT [facility] LABORATORY SERVICES [facility] BASOPHILS ABSOLUTE 0.00 0.00 - 0.20 K/uL 07/08/2021 7:17 AM CDT [facility] Blood Collection / Unknown 07/08/2021 5:30 AM CDT 07/08/2021 6:13 AM CDT Nargis Guy MD HEMATOLOGY ORDERABLES Final Resu lt [facility] CLIA# [id number] [place] [address] * (ABNORMAL) COMPREHENSIVE METABOLIC PANEL (07/08/2021 5:30 AM CDT) SODIUM 137 136 - 145 mmol/L 07/08/2021 7:41 AM CDT [facility] POTASSIUM 4.2 3.4 - 5.1 mmol/L 07/08/2021 7:41 AM CDT [facility] CHLORIDE 102 98 - 107 mmol/L 07/08/2021 7:41 AM CDT [facility] CO2 24 22 - 29 mmol/L 07/08/2021 7:41 AM CDT [facility] CALCIUM 8.9 8.6 - 10.4 mg/dL 07/08/2021 7:41 AM CDT [facility] BUN 12 6 - 20 mg/dL 07/08/2021 7:41 AM CDT [facility] CREATININE 0.87 0.51 - 0.95 mg/dL 07/08/2021 7:41 AM CDT [facility] GLUCOSE 122(H) 74 - 99 mg/dL 07/08/2021 7:41 AM CDT [facility] TOTAL PROTEIN 6.0(L) 6.3 - 8.7 g/dL 07/08/2021 7:41 AM [facility] ALBUMIN 2.8(L) 3.5 - 5.2 g/dL 07/08/2021 7:41 AM [facility] BILIRUBIN TOTAL 0.2 0.2 - 1.1 mg/dL 07/08/2021 7:41 AM T [facility] ALKALINE PHOSPHATASE 92 40 - 150 U/L 07/08/2021 7:41 AM T [facility] AST 13 0 - 33 U/L 07/08/2021 7:41 AM [facility] ALT 10 0 - 33 U/L 07/08/2021 7:41 AM [facility] GFR >60 mL/min/1.7 3 sq meter 07/08/2021 7:41 AM [facility] Comment: eGFR has not been [...] result. GFR, >60 mL/min/1.7 3 sq meter 07/08/2021 7:41 AM CDT [facility] ANION GAP 11 8 - 16 mmol/L 07/08/2021 7:41 AM T [facility] Blood Collection / Unknown 07/08/2021 5:30 AM CDT 07/08/2021 6:13 AM CDT us Nargis Guy MD CHEMISTRY ORDERABLES Final Resul t [facility] CLIA# [id number] [place] [address] documented in this encounter Visit Diagnoses Not on filedocumented in this encounter
--- OUTSIDE RECORDS SUMMARY | 2024-12-14 03:36 | XMS_ITS | Encounter Summary ---
Author Organization [facility] Address [address] [place] [address] Care Team Providers Care Cardiovascular Sonographer Name Role Phone Murali Silva MD Primary Care Provider [phone] Karime Aguilera RN [facility] Gurvinder Stephens MD Primary Care Provider [phone] Reason for Visit * Reason Onset Date Comments Patient Requested Call 11/05/2021 Encounter Details Date Type Department Care Team (Late st Contact Info) Description 11/05/2021 Telephone [facility] [address] [place] [address] Christy Khan MD [id number] [address] Patient Requested Call Social History [...] Pari Denton RN - 11/05/2021 12:15 PM J2EE PROGRAMMER RN called patient. Pt stating she does not want to stand as her knees buckle. Pt made aware that office does have lower exam tables. Pt stating she is coming to the office visit in electric wheelchair and will also be accompanied by home health. Will also pass along to MD and medical dermatologist IMANI Tesfaye J2EE PROGRAMMER * Telephone Encounter - Holly Yates - 11/05/2021 12:08 PM CST Patient is requesting a call back to confirm accommodations for her appt. She recently had surgery and won't be able to get on a high table for her exam. Please advise: [phone] J2EE PROGRAMMER documented in this encounter Plan of Treatment Not on file documented as of this encounter Visit Diagnoses Not on filedocumented in this encounter Care Teams Cardiovascular Sonographer Relationship Specialty Start Date End Date Murali Silva MD [address] [place] [address] PCP - General 03/03/18 12/31/21 Gurvinder Renteria MD [address] [facility] [address] [place] [address] PCP - General 01/01/22 Karime Aguilera RN 05/07/18 documented as of this encounter
--- OUTSIDE RECORDS SUMMARY | 2024-12-14 03:36 | XMS_ITS | Encounter Summary ---
Author Organization [facility] Address [address] [place] [address] Care Team Providers Care Single Resource Boss Name Role Phone Unavailable Primary Care Provider Unavailabl e Encounter Details Date Type Department Care Team (Late st Contact Info) Description 06/20/2021 Lab Requisition [facility] Laboratory Services [address] [place] [address] Social History Tobacco Use Types Packs/Day Years [...]
--- OUTSIDE RECORDS SUMMARY | 2024-12-14 03:37 | XMS_ITS | Encounter Summary ---
Author Organization [facility] Address [address] [place] [address] Care Team Providers Care Risk Compliance Manager Name Role Phone Unavailable Primary Care Provider Unavailabl e Encounter Details Date Type Department Care Team (Late st Contact Info) Description 06/11/2021 Lab Requisition [facility] Laboratory Services [address] [place] [address] [place] [address] [place] [address] Social History Tobacco Use Types [...] have Coronavirus / COVID-19? Unable to assess 05/26/2021 2:52 AM CDT documented as of this encounter Plan of Treatment Not on file documented as of this encounter Procedures Procedure Name Priority Date/Time Associated Diagnosis Comments CBC WITH DIFFERENTIAL Routine 06/11/2021 11:20 AM CDT PREALBUMIN Routine 06/11/2021 11:20 AM CDT COMPREHENSIVE METABOLIC PANEL Routine 06/11/2021 11:20 AM CDT documented in this encounter Results * (ABNORMAL) PREALBUMIN (06/11/2021 11:20 AM CDT) PREALBUMIN 15(L) 20 - 40 mg/dL 06/11/2021 5:53 PM CDT [facility] Blood Collection / Unknown 06/11/2021 11:20 AM CDT 06/11/2021 1:21 PM CDT Nargis Guy MD CHEMISTRY ORDERABLES Final Resul t [facility] CLIA# [id number] [address] [facility] [place] [address] * (ABNORMAL) CBC WITH DIFFERENTIAL (06/11/2021 11:20 AM CDT) Pathologist [facility] WBC 8.8 4.5 - 10.5 K/uL 06/11/2021 1:38 PM CDT [facility] RBC 3.64(L) 3.90 - 4.90 M/uL 06/11/2021 1:38 PM CDT [facility] HEMOGLOBIN 10.1(L) 11.8 - 14.8 g/dL 06/11/2021 1:38 PM CDT [facility] HEMATOCRIT 31.5(L) 35.5 - 44.0 % 06/11/2021 1:38 PM CDT [facility] MCV 86.7 82.0 - 99.0 fL 06/11/2021 1:38 PM CDT [facility] MCH 27.9 27.8 - 34.5 pg 06/11/2021 1:38 PM CDT [facility] MCHC 32.2(L) 32.5 - 35.5 g/dL 06/11/2021 1:38 PM CDT [facility] RDW 15.8(H) 11.5 - 14.5 % 06/11/2021 1:38 PM CDT [facility] PLATELETS 470(H) 160 - 420 K/uL 06/11/2021 1:38 PM CDT [facility] MPV 8.0(L) 8.7 - 12.7 fL 06/11/2021 1:38 PM CDT [facility] NEUTROPHILS 62 % 06/11/2021 1:38 PM CDT [facility] LYMPHOCYTES 23 % 06/11/2021 1:38 PM CDT [facility] MONOCYTES 9 % 06/11/2021 1:38 PM CDT [facility] EOSINOPHILS 5 % 06/11/2021 1:38 PM CDT [facility] BASOPHILS 1 % 06/11/2021 1:38 PM CDT [facility] NEUTROPHIL ABSOLUTE 5.40 1.90 - 7.00 K/uL 06/11/2021 1:38 PM CDT [facility] LYMPHOCYTE ABSOLUTE 2.00 0.70 - 4.50 K/uL 06/11/2021 1:38 PM CDT [facility] MONOCYTE ABSOLUTE 0.80 0.10 - 1.30 K/uL 06/11/2021 1:38 PM CDT [facility] EOSINOPHIL ABSOLUTE 0.50 0.00 - 0.70 K/uL 06/11/2021 1:38 PM CDT [facility] BASOPHILS ABSOLUTE 0.10 0.00 - 0.20 K/uL 06/11/2021 1:38 PM CDT [facility] Blood Collection / Unknown 06/11/2021 11:20 AM CDT 06/11/2021 1:21 PM CDT us Nargis Guy MD HEMATOLOGY ORDERABLES Final Resu lt [facility] CLIA# [id number] [place] [address] * (ABNORMAL) COMPREHENSIVE METABOLIC PANEL (06/11/2021 11:20 AM CDT) SODIUM 140 136 - 145 mmol/L 06/11/2021 1:52 PM CDT [facility] POTASSIUM 4.1 3.4 - 5.1 mmol/L 06/11/2021 1:52 PM [facility] CHLORIDE 104 98 - 107 mmol/L 06/11/2021 1:52 PM [facility] CO2 24 22 - 29 mmol/L 06/11/2021 1:52 PM [facility] CALCIUM 8.6 8.6 - 10.4 mg/dL 06/11/2021 1:52 PM [facility] BUN 10 6 - 20 mg/dL 06/11/2021 1:52 PM [facility] CREATININE 0.94 0.51 - 0.95 mg/dL 06/11/2021 1:52 PM [facility] GLUCOSE 157(H) 74 - 99 mg/dL 06/11/2021 1:52 PM [facility] TOTAL PROTEIN 6.1(L) 6.3 - 8.7 g/dL 06/11/2021 1:52 PM [facility] ALBUMIN 2.7(L) 3.5 - 5.2 g/dL 06/11/2021 1:52 PM [facility] BILIRUBIN TOTAL <0.2(L) 0.3 - 1.2 mg/dL 06/11/2021 1:52 PM [facility] ALKALINE PHOSPHATASE 155(H) 40 - 150 U/L 06/11/2021 1:52 PM [facility] AST 45(H) 0 - 33 U/L 06/11/2021 1:52 PM [facility] ALT 44(H) 0 - 33 U/L 06/11/2021 1:52 PM [facility] GFR >60 mL/min/1.7 3 sq meter 06/11/2021 1:52 PM [facility] Comment: eGFR has not been [...] result. GFR, >60 mL/min/1.7 3 sq meter 06/11/2021 1:52 PM CDT [facility] ANION GAP 12 8 - 16 mmol/L 06/11/2021 1:52 PM CDT [facility] Blood Collection / Unknown 06/11/2021 11:20 AM CDT 06/11/2021 1:21 PM CDT us Nargis Guy MD CHEMISTRY ORDERABLES Final Resul t [facility] CLIA# [id number] [place] [address] documented in this encounter Visit Diagnoses Not on filedocumented in this encounter
--- OUTSIDE RECORDS SUMMARY | 2024-12-14 03:37 | XMS_ITS | Encounter Summary ---
Author Organization [facility] Address [address] [place] [address] Care Team Providers Care Orchestra Teacher Name Role Phone Unavailable Primary Care Provider Unavailabl e Encounter Details Date Type Department Care Team (Late st Contact Info) Description 06/18/2021 Lab Requisition [facility] Laboratory Services [address] [place] [address] [place] [address] [place] [address] Social History Tobacco Use Types [...] Comments IRON, TIBC, AND PERCENT SATURATION Routine 06/18/2021 4:15 AM CDT CBC WITH DIFFERENTIAL Routine 06/18/2021 4:15 AM CDT SEDIMENTATION RATE Routine 06/18/2021 4: 15 AM CDT RETICULOCYTES Routine 06/18/2021 4:15 AM CDT C-REACTIVE PROTEIN Routine 06/18/2021 4: 15 AM CDT PREALBUMIN Routine 06/18/2021 4:15 AM CDT COMPREHENSIVE METABOLIC PANEL Routine 06/18/2021 4:15 AM CDT documented in this encounter Results * (ABNORMAL) SEDIMENTATION RATE (06/18/2021 4:15 AM CDT) Pathologist [facility] ESR (SEDIMENTATION RATE) 51(H) 0 - 30 mm/Hr 06/18/2021 10:14 AM CDT [facility] Blood Collection / Unknown 06/18/2021 4:15 AM CDT 06/18/2021 8:44 AM CDT Nargis Guy MD HEMATOLOGY ORDERABLES Final Resu lt Performing Organization Address City/[facility]/ZIP Co de Phone Number [facility] CLIA# [id number] [place], [place] [id number] * RETICULOCYTES (06/18/2021 4:15 AM CDT) Pathologist [facility] RETICULOCYTES 2.0 0.4 - 2.0 % 06/18/2021 8:52 AM CDT [facility] IMMATURE RETIC FRACTION 0.6 % 06/18/2021 8:52 AM CDT [facility] RETICULOCYTE, ABSOLUTE 0.0651 0.0250 - 0.1480 10e6/uL 06/18/2021 8:52 AM CDT [facility] Blood Collection / Unknown 06/18/2021 4:15 AM CDT 06/18/2021 8:44 AM CDT Nargis Guy MD HEMATOLOGY ORDERABLES Final Resu lt Performing Organization Address City/[facility]/ZIP Co de Phone Number [facility] CLIA# [id number] [place] [address] * (ABNORMAL) PREALBUMIN (06/18/2021 4:15 AM CDT) PREALBUMIN 14(L) 20 - 40 mg/dL 06/18/2021 11:37 AM CDT [facility] Blood Collection / Unknown 06/18/2021 4:15 AM CDT 06/18/2021 8:15 AM CDT Nargis Gyu MD CHEMISTRY ORDERABLES Final Resul t [facility] CLIA# [id number] [address] [place] [address] * (ABNORMAL) IRON, TIBC, AND PERCENT SATURATION (06/18/2021 4:15 AM CDT) IRON 34(L) 37 - 145 ug/dL 06/18/2021 8:54 AM CDT [facility] TIBC 146(L) 265 - 497 ug/dL 06/18/2021 8:54 AM CDT [facility] IRON % SATURATION 23 20 - 55 % 06/18/2021 8:54 AM CDT [facility] Blood Collection / Unknown 06/18/2021 4:15 AM CDT 06/18/2021 8:18 AM CDT Nargis Guy MD CHEMISTRY ORDERABLES Final Resul t [facility] CLIA# [id number] [place] [address] * (ABNORMAL) C-REACTIVE PROTEIN (06/18/2021 4:15 AM CDT) CRP 51.3(H) <5.0 mg/L 06/18/2021 8:50 AM CDT [facility] Blood Collection / Unknown 06/18/2021 4:15 AM CDT 06/18/2021 8:18 AM CDT Nargis Guy MD CHEMISTRY ORDERABLES Final Resul t [facility] CLIA# [id number] [place] [address] * (ABNORMAL) CBC WITH DIFFERENTIAL (06/18/2021 4:15 AM CDT) [facility] WBC 7.9 4.5 - 10.5 K/uL 06/18/2021 8:52 AM CDT [facility] RBC 3.30(L) 3.90 - 4.90 M/uL 06/18/2021 8:52 AM CDT [facility] HEMOGLOBIN 9.0(L) 11.8 - 14.8 g/dL 06/18/2021 8:52 AM CDT [facility] HEMATOCRIT 28.2(L) 35.5 - 44.0 % 06/18/2021 8:52 AM CDT [facility] MCV 85.3 82.0 - 99.0 fL 06/18/2021 8:52 AM CDT [facility] MCH 27.3(L) 27.8 - 34.5 pg 06/18/2021 8:52 AM CDT [facility] MCHC 32.0(L) 32.5 - 35.5 g/dL 06/18/2021 8:52 AM CDT [facility] RDW 15.8(H) 11.5 - 14.5 % 06/18/2021 8:52 AM CDT [facility] PLATELETS 379 160 - 420 K/uL 06/18/2021 8:52 AM CDT [facility] MPV 7.4(L) 8.7 - 12.7 fL 06/18/2021 8:52 AM CDT [facility] NEUTROPHILS 59 % 06/18/2021 8:52 AM CDT [facility] LYMPHOCYTES 28 % 06/18/2021 8:52 AM CDT [facility] MONOCYTES 8 % 06/18/2021 8:52 AM CDT [facility] EOSINOPHILS 4 % 06/18/2021 8:52 AM CDT [facility] BASOPHILS 1 % 06/18/2021 8:52 AM CDT [facility] NEUTROPHIL ABSOLUTE 4.70 1.90 - 7.00 K/uL 06/18/2021 8:52 AM CDT [facility] LYMPHOCYTE ABSOLUTE 2.20 0.70 - 4.50 K/uL 06/18/2021 8:52 AM CDT [facility] MONOCYTE ABSOLUTE 0.70 0.10 - 1.30 K/uL 06/18/2021 8:52 AM CDT [facility] EOSINOPHIL ABSOLUTE 0.30 0.00 - 0.70 K/uL 06/18/2021 8:52 AM CDT [facility] BASOPHILS ABSOLUTE 0.00 0.00 - 0.20 K/uL 06/18/2021 8:52 AM CDT [facility] Blood Collection / Unknown 06/18/2021 4:15 AM CDT 06/18/2021 8:44 AM CDT us Nargis Guy MD HEMATOLOGY ORDERABLES Final Resu lt [facility] CLIA# [id number] [place] [address] * (ABNORMAL) COMPREHENSIVE METABOLIC PANEL (06/18/2021 4:15 AM CDT) SODIUM 140 136 - 145 mmol/L 06/18/2021 8:50 AM CDT [facility] POTASSIUM 3.7 3.4 - 5.1 mmol/L 06/18/2021 8:50 AM CDT [facility] CHLORIDE 105 98 - 107 mmol/L 06/18/2021 8:50 AM [facility] CO2 23 22 - 29 mmol/L 06/18/2021 8:50 AM [facility] CALCIUM 8.6 8.6 - 10.4 mg/dL 06/18/2021 8:50 AM [facility] BUN 14 6 - 20 mg/dL 06/18/2021 8:50 AM [facility] CREATININE 1.10(H) 0.51 - 0.95 mg/dL 06/18/2021 8:50 AM [facility] GLUCOSE 98 74 - 99 mg/dL 06/18/2021 8:50 AM [facility] TOTAL PROTEIN 5.7(L) 6.3 - 8.7 g/dL 06/18/2021 8:50 AM [facility] ALBUMIN 2.4(L) 3.5 - 5.2 g/dL 06/18/2021 8:50 AM [facility] BILIRUBIN TOTAL 0.2(L) 0.3 - 1.2 mg/dL 06/18/2021 8:50 AM [facility] ALKALINE PHOSPHATASE 114 40 - 150 U/L 06/18/2021 8:50 AM [facility] AST 25 0 - 33 U/L 06/18/2021 8:50 AM [facility] ALT 23 0 - 33 U/L 06/18/2021 8:50 AM [facility] GFR 51 mL/min/1.7 3 sq meter 06/18/2021 8:50 AM [facility] Comment: eGFR has not been validated [...] result. GFR, >60 mL/min/1.7 3 sq meter 06/18/2021 8:50 AM CDT [facility] ANION GAP 12 8 - 16 mmol/L 06/18/2021 8:50 AM CDT [facility] Blood Collection / Unknown 06/18/2021 4:15 AM CDT 06/18/2021 8:18 AM CDT us Nargis Guy MD CHEMISTRY ORDERABLES Final Resul t [facility] CLIA# [id number] [place] [address] documented in this encounter Visit Diagnoses Not on filedocumented in this encounter
--- OUTSIDE RECORDS SUMMARY | 2024-12-14 03:37 | XMS_ITS | Encounter Summary ---
Author Organization [facility] Address [address] [place] [address] Care Team Providers Care Jig Builder Helper Name Role Phone Unavailable Primary Care Provider Unavailabl e Encounter Details Date Type Department Care Team (Late st Contact Info) Description 06/04/2021 Lab Requisition [facility] Laboratory Services [address] [place] [address] [place] [address] [place] [address] Social History Tobacco Use [...] Comments IRON, TIBC, AND PERCENT SATURATION Routine 06/04/2021 4:55 AM CDT CBC WITH DIFFERENTIAL Routine 06/04/2021 4:55 AM CDT SEDIMENTATION RATE Routine 06/04/2021 4: 55 AM CDT RETICULOCYTES Routine 06/04/2021 4:55 AM CDT C-REACTIVE PROTEIN Routine 06/04/2021 4: 55 AM CDT PREALBUMIN Routine 06/04/2021 4:55 AM CDT HEMOGLOBIN A1C Routine 06/04/2021 4:55 AM CDT COMPREHENSIVE METABOLIC PANEL Routine 06/04/2021 4:55 AM CDT documented in this encounter Results * (ABNORMAL) SEDIMENTATION RATE (06/04/2021 4:55 AM CDT) ESR (SEDIMENTATION RATE) 73(H) 0 - 30 mm/Hr 06/04/2021 9:54 AM CDT [facility] Blood Collection / Unknown 06/04/2021 4:55 AM CDT 06/04/2021 9:41 AM CDT us Nargis Guy MD HEMATOLOGY ORDERABLES Final Resu lt [facility] CLIA# [id number] [place] [address] * (ABNORMAL) RETICULOCYTES (06/04/2021 4:55 AM CDT) RETICULOCYTES 3.2(H) 0.4 - 2.0 % 06/04/2021 9:49 AM CDT [facility] IMMATURE RETIC FRACTION 0.5 % 06/04/2021 9:49 AM CDT [facility] RETICULOCYTE, ABSOLUTE 0.1121 0.0250 - 0.1480 10e6/uL 06/04/2021 9:49 AM CDT [facility] Blood Collection / Unknown 06/04/2021 4:55 AM CDT 06/04/2021 9:41 AM CDT us Nargis Guy MD HEMATOLOGY ORDERABLES Final Resu lt [facility] [id number] [place] [address] * (ABNORMAL) PREALBUMIN (06/04/2021 4:55 AM CDT) Pathologist [facility] PREALBUMIN 13(L) 20 - 40 mg/dL 06/04/2021 2:28 PM CDT [facility] Blood Collection / Unknown 06/04/2021 4:55 AM CDT 06/04/2021 9:42 AM CDT Nargis Guy MD CHEMISTRY ORDERABLES Final Resul t Performing Organization Address City/[facility]/ZIP Co de Phone Number [facility]# [id number] [address] [place] [address] * (ABNORMAL) IRON, TIBC, AND PERCENT SATURATION (06/04/2021 4:55 AM CDT) [facility] IRON 27(L) 37 - 145 ug/dL 06/04/2021 10:17 AM CDT [facility] TIBC 144(L) 265 - 497 ug/dL 06/04/2021 10:17 AM CDT [facility] IRON % SATURATION 19(L) 20 - 55 % 06/04/2021 10:17 AM CDT [facility] Blood Collection / Unknown 06/04/2021 4:55 AM CDT 06/04/2021 9:42 AM CDT Nargis Guy MD CHEMISTRY ORDERABLES Final Resul t [facility]# [id number] [place] [address] * HEMOGLOBIN A1C (06/04/2021 4:55 AM CDT) Pathologist [facility] HEMOGLOBIN A1C 5.5 <=5.6 % 06/04/2021 10:29 AM CDT [facility] EST. AVG GLUCOSE, A1C 111 mg/dL 06/04/2021 10:29 AM CDT [facility] Blood Collection / Unknown 06/04/2021 4:55 AM CDT 06/04/2021 10:10 AM CDT Narrative [facility] - 06/04/2021 10:29 AM CDT HGB A1C INTERPRETATION NORMAL: ? <5.7% PRE-DIABETES: 5.7 - 6.4% DIABETES: ? 6.5% OR GREATER Nargis Guy MD CHEMISTRY ORDERABLES Final Resul t [facility]# [id number] [place] [address] * (ABNORMAL) C-REACTIVE PROTEIN (06/04/2021 4:55 AM CDT) CRP 99.3(H) <5.0 mg/L 06/04/2021 10:17 AM CDT [facility] Blood Collection / Unknown 06/04/2021 4:55 AM CDT 06/04/2021 9:42 AM CDT Nargis Guy MD CHEMISTRY ORDERABLES Final Resul t [facility]# [id number] [place] [address] * (ABNORMAL) CBC WITH DIFFERENTIAL (06/04/2021 4:55 AM CDT) WBC 5.7 4.5 - 10.5 K/uL 06/04/2021 9:49 AM CDT [facility] RBC 3.55(L) 3.90 - 4.90 M/uL 06/04/2021 9:49 AM CDT [facility] HEMOGLOBIN 10.2(L) 11.8 - 14.8 g/dL 06/04/2021 9:49 AM CDT [facility] HEMATOCRIT 31.4(L) 35.5 - 44.0 % 06/04/2021 9:49 AM CDT [facility] MCV 88.5 82.0 - 99.0 fL 06/04/2021 9:49 AM CDT [facility] MCH 28.8 27.8 - 34.5 pg 06/04/2021 9:49 AM CDT [facility] MCHC 32.6 32.5 - 35.5 g/dL 06/04/2021 9:49 AM CDT [facility] RDW 15.5(H) 11.5 - 14.5 % 06/04/2021 9:49 AM CDT [facility] SERVICES [facility] PLATELETS 288 160 - 420 K/uL 06/04/2021 9:49 AM CDT [facility] MPV 8.5(L) 8.7 - 12.7 fL 06/04/2021 9:49 AM CDT [facility] SERVICES [facility] NEUTROPHILS 53 % 06/04/2021 9:49 AM CDT [facility] SERVICES [facility] LYMPHOCYTES 33 % 06/04/2021 9:49 AM CDT [facility] MONOCYTES 10 % 06/04/2021 9:49 AM CDT [facility] SERVICES [facility] EOSINOPHILS 4 % 06/04/2021 9:49 AM CDT [facility] SERVICES [facility] BASOPHILS 1 % 06/04/2021 9:49 AM CDT [facility] SERVICES [facility] NEUTROPHIL ABSOLUTE 3.00 1.90 - 7.00 K/uL 06/04/2021 9:49 AM CDT [facility]ORATORY SERVICES [facility] LYMPHOCYTE ABSOLUTE 1.90 0.70 - 4.50 K/uL 06/04/2021 9:49 AM CDT [facility]ORATORY SERVICES [facility] MONOCYTE ABSOLUTE 0.50 0.10 - 1.30 K/uL 06/04/2021 9:49 AM CDT [facility]OR[facility]ORY SERVICES [facility] EOSINOPHIL ABSOLUTE 0.20 0.00 - 0.70 K/uL 06/04/2021 9:49 AM CDT [facility] BASOPHILS ABSOLUTE 0.10 0.00 - 0.20 K/uL 06/04/2021 9:49 AM CDT [facility] Blood Collection / Unknown 06/04/2021 4:55 AM CDT 06/04/2021 9:41 AM CDT us Nargis Guy MD HEMATOLOGY ORDERABLES Final Resu lt [facility] CLIA# [id number] [place] [address] * (ABNORMAL) COMPREHENSIVE METABOLIC PANEL (06/04/2021 4:55 AM CDT) SODIUM 143 136 - 145 mmol/L 06/04/2021 10:17 AM CDT [facility] POTASSIUM 4.0 3.4 - 5.1 mmol/L 06/04/2021 10:17 AM CDT [facility] CHLORIDE 107 98 - 107 mmol/L 06/04/2021 10:17 AM CDT [facility] CO2 24 22 - 29 mmol/L 06/04/2021 10:17 AM T [facility] CALCIUM 8.3(L) 8.6 - 10.4 mg/dL 06/04/2021 10:17 AM CDT [facility] BUN 8 6 - 20 mg/dL 06/04/2021 10:17 AM T [facility] CREATININE 1.01(H) 0.51 - 0.95 mg/dL 06/04/2021 10:17 AM T [facility] GLUCOSE 105(H) 74 - 99 mg/dL 06/04/2021 10:17 AM T [facility] TOTAL PROTEIN 5.7(L) 6.3 - 8.7 g/dL 06/04/2021 10:17 AM CDT [facility] ALBUMIN 2.5(L) 3.5 - 5.2 g/dL 06/04/2021 10:17 AM T [facility] BILIRUBIN TOTAL 0.2(L) 0.3 - 1.2 mg/dL 06/04/2021 10:17 AM T [facility] ALKALINE PHOSPHATASE 112 40 - 150 U/L 06/04/2021 10:17 AM T [facility] AST 38(H) 0 - 33 U/L 06/04/2021 10:17 AM CDT [facility] ALT 31 0 - 33 U/L 06/04/2021 10:17 AM T [facility] GFR 56 mL/min/1.7 3 sq meter 06/04/2021 10:17 AM T [facility] Comment: eGFR has not been validated for [...] result. GFR, >60 mL/min/1.7 3 sq meter 06/04/2021 10:17 AM CDT [facility] ANION GAP 12 8 - 16 mmol/L 06/04/2021 10:17 AM T [facility] Blood Collection / Unknown 06/04/2021 4:55 AM CDT 06/04/2021 9:42 AM CDT us Nargis Guy MD CHEMISTRY ORDERABLES Final Resul t [facility] CLIA# [id number] [place] [address] documented in this encounter Visit Diagnoses Not on filedocumented in this encounter
--- OUTSIDE RECORDS SUMMARY | 2024-12-14 03:37 | XMS_ITS | Encounter Summary ---
Author Organization [facility] Address [address] [place] [address] Care Team Providers Care Sap Mobility Architect Name Role Phone Unavailable Primary Care Provider Unavailabl e Encounter Details Date Type Department Care Team (Late st Contact Info) Description 05/26/2021 Lab Requisition [facility] Laboratory Services [address] [place] [address] [facility], External Provider [address] [place] [address] Social History Tobacco Use Types Packs/Day Years [...] Associated Diagnosis Comments CBC WITH DIFFERENTIAL Routine 05/26/2021 4:30 AM CDT PTT Routine 05/26/2021 4:30 AM CDT PROTIME-INR Routine 05/26/2021 4:30 AM CDT PREALBUMIN Routine 05/26/2021 4:30 AM CDT COMPREHENSIVE METABOLIC PANEL Routine 05/26/2021 4:30 AM CDT documented in this encounter Results * PTT (05/26/2021 4:30 AM CDT) PTT 30.8 23.1 - 37.1 seconds 05/26/2021 7:19 AM CDT [facility] Blood Collection / Unknown 05/26/2021 4:30 AM CDT 05/26/2021 6:22 AM CDT External Provider [facility] HEMATOLOGY ORDERABLES Fin al Result [facility] [id number] [place] [address] * PROTIME-INR (05/26/2021 4:30 AM CDT) PROTIME 13.4 11.5 - 14.7 Seconds 05/26/2021 7:19 AM CDT [facility] INR 1.0 0.9 - 1.1 05/26/2021 7:19 AM CDT [facility] Blood Collection / Unknown 05/26/2021 4:30 AM CDT 05/26/2021 6:22 AM CDT Result [place] [facility] External Provider [facility] HEMATOLOGY ORDERABLES Fin al Result Performing Organization Address City/[facility]/ZIP Co de Phone Number [facility] [id number] [place] [address] * (ABNORMAL) PREALBUMIN (05/26/2021 4:30 AM CDT) PREALBUMIN 17(L) 20 - 40 mg/dL 05/26/2021 12:53 PM CDT [facility] Blood Collection / Unknown 05/26/2021 4:30 AM CDT 05/26/2021 6:22 AM CDT External Provider [facility] CHEMISTRY ORDERABLES Jennie l Result [facility] CLIA# [id number] [address] [facility] [place] [address] * (ABNORMAL) CBC WITH DIFFERENTIAL (05/26/2021 4:30 AM CDT) WBC 10.1 4.5 - 10.5 K/uL 05/26/2021 7:23 AM CDT [facility] RBC 3.06(L) 3.90 - 4.90 M/uL 05/26/2021 7:23 AM CDT [facility] HEMOGLOBIN 8.8(L) 11.8 - 14.8 g/dL 05/26/2021 7:23 AM CDT [facility] HEMATOCRIT 27.2(L) 35.5 - 44.0 % 05/26/2021 7:23 AM CDT [facility] MCV 89.0 82.0 - 99.0 fL 05/26/2021 7:23 AM CDT [facility] MCH 28.8 27.8 - 34.5 pg 05/26/2021 7:23 AM CDT [facility] MCHC 32.3(L) 32.5 - 35.5 g/dL 05/26/2021 7:23 AM CDT [facility] RDW 16.0(H) 11.5 - 14.5 % 05/26/2021 7:23 AM CDT [facility] PLATELETS 399 160 - 420 K/uL 05/26/2021 7:23 AM CDT [facility] MPV 7.8(L) 8.7 - 12.7 fL 05/26/2021 7:23 AM CDT [facility] NEUTROPHILS 71 % 05/26/2021 7:23 AM CDT [facility] LYMPHOCYTES 18 % 05/26/2021 7:23 AM CDT [facility] MONOCYTES 8 % 05/26/2021 7:23 AM CDT [facility] EOSINOPHILS 3 % 05/26/2021 7:23 AM CDT [facility] BASOPHILS 1 % 05/26/2021 7:23 AM CDT [facility] NEUTROPHIL ABSOLUTE 7.20(H) 1.90 - 7.00 K/uL 05/26/2021 7:23 AM CDT [facility] LYMPHOCYTE ABSOLUTE 1.90 0.70 - 4.50 K/uL 05/26/2021 7:23 AM CDT [facility] MONOCYTE ABSOLUTE 0.80 0.10 - 1.30 K/uL 05/26/2021 7:23 AM CDT [facility] EOSINOPHIL ABSOLUTE 0.30 0.00 - 0.70 K/uL 05/26/2021 7:23 AM CDT [facility] BASOPHILS ABSOLUTE 0.00 0.00 - 0.20 K/uL 05/26/2021 7:23 AM CDT [facility] Blood Collection / Unknown 05/26/2021 4:30 AM CDT 05/26/2021 6:22 AM CDT us External Provider [facility] HEMATOLOGY ORDERABLES Fin al Result [facility] CLIA# [id number] [place] [address] * (ABNORMAL) COMPREHENSIVE METABOLIC PANEL (05/26/2021 4:30 AM CDT) SODIUM 144 136 - 145 mmol/L 05/26/2021 7:23 AM CDT [facility] POTASSIUM 3.7 3.4 - 5.1 mmol/L 05/26/2021 7:23 AM CDT [facility] CHLORIDE 109(H) 98 - 107 mmol/L 05/26/2021 7:23 AM CDT [facility] CO2 24 22 - 29 mmol/L 05/26/2021 7:23 AM CDT [facility] CALCIUM 8.3(L) 8.6 - 10.4 mg/dL 05/26/2021 7:23 AM [facility] BUN 19 6 - 20 mg/dL 05/26/2021 7:23 AM [facility] CREATININE 1.18(H) 0.51 - 0.95 mg/dL 05/26/2021 7:23 AM [facility] GLUCOSE 171(H) 74 - 99 mg/dL 05/26/2021 7:23 AM [facility] TOTAL PROTEIN 5.9(L) 6.3 - 8.7 g/dL 05/26/2021 7:23 AM [facility] ALBUMIN 2.6(L) 3.5 - 5.2 g/dL 05/26/2021 7:23 AM [facility] BILIRUBIN TOTAL 0.2(L) 0.3 - 1.2 mg/dL 05/26/2021 7:23 AM [facility] ALKALINE PHOSPHATASE 112 40 - 150 U/L 05/26/2021 7:23 AM [facility] AST 35(H) 0 - 33 U/L 05/26/2021 7:23 AM [facility] ALT 34(H) 0 - 33 U/L 05/26/2021 7:23 AM [facility] GFR 47 mL/min/1.7 3 sq meter 05/26/2021 7:23 AM [facility] Comment: eGFR has not been validated for [...] please refer to the GFR result. GFR, 57 mL/min/1.7 3 sq meter 05/26/2021 7:23 AM [facility] ANION GAP 11 8 - 16 mmol/L 05/26/2021 7:23 AM CDT [facility] - [facility] Blood Collection / Unknown 05/26/2021 4:30 AM CDT 05/26/2021 6:22 AM CDT us External Provider [facility] CHEMISTRY ORDERABLES Jennie l Result [facility] - [facility] CLIA# [id number] [place] [address] documented in this encounter Visit Diagnoses Not on filedocumented in this encounter
--- OUTSIDE RECORDS SUMMARY | 2024-12-14 03:37 | XMS_ITS | Encounter Summary ---
Author Organization [facility] Address [address] [place] [address] Care Team Providers Care Supervisory Lifeguard Name Role Phone Unavailable Primary Care Provider Unavailabl e Encounter Details Date Type Department Care Team (Late st Contact Info) Description 05/17/2021 Lab Requisition [facility] Laboratory Services [address] [place] [address] [place] [address] [place] [address] Social History Tobacco Use Types [...] or suspected to have Coronavirus / COVID-19? No / Unsure 05/19/2021 6:05 AM CDT documented as of this encounter Plan of Treatment Not on file documented as of this encounter Procedures Procedure Name Priority Date/Time Associated Diagnosis Comments CBC WITH DIFFERENTIAL Routine 05/17/2021 5:20 AM CDT documented in this encounter Results * (ABNORMAL) CBC WITH DIFFERENTIAL (05/17/2021 5:20 AM CDT) WBC 9.8 4.5 - 10.5 K/uL 05/17/2021 10:31 AM CDT [facility] SERVICES [facility] RBC 2.72(L) 3.90 - 4.90 M/uL 05/17/2021 10:31 AM CDT [facility] SERVICES [facility] HEMOGLOBIN 7.9(L) 11.8 - 14.8 g/dL 05/17/2021 10:31 AM CDT [facility] SERVICES [facility] HEMATOCRIT 23.6(L) 35.5 - 44.0 % 05/17/2021 10:31 AM CDT [facility] SERVICES [facility] MCV 86.6 82.0 - 99.0 fL 05/17/2021 10:31 AM CDT [facility]ORY SERVICES [facility] MCH 28.9 27.8 - 34.5 pg 05/17/2021 10:31 AM CDT [facility]ORY SERVICES [facility] MCHC 33.3 32.5 - 35.5 g/dL 05/17/2021 10:31 AM CDT [facility]ORY SERVICES [facility] RDW 14.7(H) 11.5 - 14.5 % 05/17/2021 10:31 AM CDT [facility]ORATORY SERVICES [facility] PLATELETS 188 160 - 420 K/uL 05/17/2021 10:31 AM CDT [facility]ORY SERVICES [facility] MPV 8.8 8.7 - 12.7 fL 05/17/2021 10:31 AM CDT [facility]ORY SERVICES [facility] NEUTROPHILS 59 % 05/17/2021 10:31 AM CDT [facility]ORY SERVICES [facility] LYMPHOCYTES 21 % 05/17/2021 10:31 AM CDT [facility]ORY SERVICES [facility] MONOCYTES 14 % 05/17/2021 10:31 AM CDT [facility]ORY SERVICES [facility] EOSINOPHILS 5 % 05/17/2021 10:31 AM CDT [facility] SERVICES [facility] BASOPHILS 1 % 05/17/2021 10:31 AM CDT [facility] SERVICES [facility] NEUTROPHIL ABSOLUTE 5.80 1.90 - 7.00 K/uL 05/17/2021 10:31 AM CDT [facility]ORY SERVICES [facility] LYMPHOCYTE ABSOLUTE 2.10 0.70 - 4.50 K/uL 05/17/2021 10:31 AM CDT [facility]ORY SERVICES [facility] MONOCYTE ABSOLUTE 1.30 0.10 - 1.30 K/uL 05/17/2021 10:31 AM CDT [facility] LABORATORY SERVICES - [facility] EOSINOPHIL ABSOLUTE 0.50 0.00 - 0.70 K/uL 05/17/2021 10:31 AM CDT [facility] LABORATORY SERVICES - [facility] BASOPHILS ABSOLUTE 0.10 0.00 - 0.20 K/uL 05/17/2021 10:31 AM CDT [facility]ORY [facility] Blood Collection / Unknown 05/17/2021 5:20 AM CDT 05/17/2021 10:01 AM CDT us Nargis Guy MD HEMATOLOGY ORDERABLES Final Resu lt [facility] SERVICES [facility] CLIA# [id number] [place] [address] documented in this encounter Visit Diagnoses Not on filedocumented in this encounter
--- OUTSIDE RECORDS SUMMARY | 2024-12-14 03:37 | XMS_ITS | Encounter Summary ---
Author Organization [facility] Address [address] [place] [address] Care Team Providers Care Superintendent Concrete Mixing Plant Name Role Phone Unavailable Primary Care Provider Unavailabl e Encounter Details Date Type Department Care Team (Late st Contact Info) Description 05/28/2021 Lab Requisition [facility] Laboratory Services [address] [place] [address] [place] [address] [place] [address] Social History Tobacco Use Types [...] Procedure Name Priority Date/Time Associated Diagnosis Comments EXTRA TUBE (SST/GOLD) Routine 05/28/2021 5:00 AM CDT CBC WITH DIFFERENTIAL Routine 05/28/2021 5:00 AM CDT VITAMIN D 25 HYDROXY Routine 05/28/2021 5:00 AM CDT BASIC METABOLIC PANEL Routine 05/28/2021 5:00 AM CDT documented in this encounter Results * EXTRA TUBE (SST/GOLD) (05/28/2021 5:00 AM CDT) Blood Collection / Unknown 05/28/2021 5:00 AM CDT 05/28/2021 11:07 AM CDT Nargis Guy MD CHEMISTRY ORDERABLES Final Resul t Performing Organization Address [facility] de Phone Number [facility] [id number] [place] [address] * (ABNORMAL) VITAMIN D 25 HYDROXY (05/28/2021 5:00 AM CDT) Pathologist [facility] VITAMIN D TOTAL (25OH) 14(L) 30 - 100 ng/mL 05/28/2021 12:03 PM CDT [facility] Blood Collection / Unknown 05/28/2021 5:00 AM CDT 05/28/2021 11:07 AM CDT Narrative [facility] - 05/28/2021 12:03 PM CDT Interpretive Data Chart: Deficient: ? 0 - 20 ng/mL Insufficient: ?21 - 29 ng/mL Sufficient: ?30 - 100 ng/mL Increased Risk of Hypercalciuria: ??>100 ng/ml Toxic: ? >150 ng/ml Nargis Guy MD CHEMISTRY ORDERABLES Final Resul t Performing Organization Address [facility] Co de Phone Number [facility] [id number] [place] [address] * (ABNORMAL) CBC WITH DIFFERENTIAL (05/28/2021 5:00 AM CDT) Pathologist [facility] WBC 8.2 4.5 - 10.5 K/uL 05/28/2021 11:15 AM CDT [facility] RBC 3.22(L) 3.90 - 4.90 M/uL 05/28/2021 11:15 AM CDT [facility] HEMOGLOBIN 9.2(L) 11.8 - 14.8 g/dL 05/28/2021 11:15 AM CDT [facility] HEMATOCRIT 28.5(L) 35.5 - 44.0 % 05/28/2021 11:15 AM CDT [facility] MCV 88.3 82.0 - 99.0 fL 05/28/2021 11:15 AM CDT [facility] MCH 28.7 27.8 - 34.5 pg 05/28/2021 11:[facility] MCHC 32.5 32.5 - 35.5 g/dL 05/28/2021 11:15 AM CDT [facility] RDW 16.6(H) 11.5 - 14.5 % 05/28/2021 11:15 AM CDT [facility] PLATELETS 363 160 - 420 K/uL 05/28/2021 11:15 AM CDT [facility] MPV 7.5(L) 8.7 - 12.7 fL 05/28/2021 11:15 AM CDT [facility] NEUTROPHILS 68 % 05/28/2021 11:15 AM CDT [facility] LYMPHOCYTES 21 % 05/28/2021 11:15 AM CDT [facility]ORATORY SERVICES [facility] MONOCYTES 7 % 05/28/2021 11:15 AM CDT [facility] EOSINOPHILS 4 % 05/28/2021 11:15 AM CDT [facility] SERVICES [facility] BASOPHILS 1 % 05/28/2021 11:15 AM CDT [facility] NEUTROPHIL ABSOLUTE 5.50 1.90 - 7.00 K/uL 05/28/2021 11:15 AM CDT [facility] LYMPHOCYTE ABSOLUTE 1.70 0.70 - 4.50 K/uL 05/28/2021 11:15 AM CDT [facility] MONOCYTE ABSOLUTE 0.60 0.10 - 1.30 K/uL 05/28/2021 11:15 AM CDT [facility] EOSINOPHIL ABSOLUTE 0.30 0.00 - 0.70 K/uL 05/28/2021 11:15 AM CDT [facility]ORATORY SERVICES [facility] BASOPHILS ABSOLUTE 0.10 0.00 - 0.20 K/uL 05/28/2021 11:15 AM CDT [facility] Blood Collection / Unknown 05/28/2021 5:00 AM CDT 05/28/2021 11:07 AM CDT Nargis Guy MD HEMATOLOGY ORDERABLES Final Resu lt [facility] CLIA# [id number] [place] [address] * (ABNORMAL) BASIC METABOLIC PANEL (05/28/2021 5:00 AM CDT) SODIUM 145 136 - 145 mmol/L 05/28/2021 11:44 AM T [facility] POTASSIUM 3.7 3.4 - 5.1 mmol/L 05/28/2021 11:44 AM CDT [facility] CHLORIDE 108(H) 98 - 107 mmol/L 05/28/2021 11:44 AM CDT [facility] CO2 24 22 - 29 mmol/L 05/28/2021 11:44 AM CDT [facility] CALCIUM 8.4(L) 8.6 - 10.4 mg/dL 05/28/2021 11:44 AM CDT [facility] BUN 14 6 - 20 mg/dL 05/28/2021 11:44 AM CDT [facility] CREATININE 1.17(H) 0.51 - 0.95 mg/dL 05/28/2021 11:44 AM CDT [facility] GLUCOSE 105(H) 74 - 99 mg/dL 05/28/2021 11:44 AM CDT [facility] GFR 47 mL/min/1.7 3 sq meter 05/28/2021 11:44 AM T [facility] Comment: eGFR has not [...] result. GFR, 57 mL/min/1.7 3 sq meter 05/28/2021 11:44 AM T [facility] ANION GAP 13 8 - 16 mmol/L 05/28/2021 11:44 AM T [facility] Blood Collection / Unknown 05/28/2021 5:00 AM CDT 05/28/2021 11:07 AM CDT us Nargis Guy MD CHEMISTRY ORDERABLES Final Resul t [facility] CLIA# [id number] [place] [address] documented in this encounter Visit Diagnoses Not on filedocumented in this encounter
--- OUTSIDE RECORDS SUMMARY | 2024-12-14 03:37 | XMS_ITS | Encounter Summary ---
Author Organization [facility] Address [address] [place] [address] Care Team Providers Care Clinical Consultant Name Role Phone Unavailable Primary Care Provider Unavailabl e Encounter Details Date Type Department Care Team (Late st Contact Info) Description 05/12/2021 Lab Requisition [facility] Laboratory Services [address] [place] [address] [place] [address] [place] [address] Social History Tobacco Use Types [...] have Coronavirus / COVID-19? Unable to assess 05/10/2021 12:00 AM CDT documented as of this encounter Plan of Treatment Scheduled Orders Name Type Priority Associated Diagnoses Orde r Schedule EXTRA TUBE Lab Routine Ordered: 05/12 documented as of this encounter Procedures Procedure Name Priority Date/Time Associated Diagnosis Comments URINALYSIS WITH REFLEX CULTURE Routine 05/11/2021 7:53 PM CDT URINE CULTURE Routine 05/11/2021 7:53 PM CDT documented in this encounter Results * (ABNORMAL) URINE CULTURE (05/11/2021 7:53 PM CDT) CULTURE ANAM TROPICALIS(A ) HAKEEM MCG/ML 05/13/2021 2:10 PM CDT [facility] Urine URINE SPECIMEN OBTAINED BY CLEAN CATCH PROCEDURE / Unknown Collection / Unknown 05/11/2021 7:53 PM CDT 05/12/2021 10:42 AM CDT Nargis Guy MD MICROBIOLOGY - GENERAL ORDERABLE S Final Result [facility] CLIA# [id number] [place], [place] [address] * (ABNORMAL) URINALYSIS WITH REFLEX CULTURE (05/11/2021 7:53 PM CDT) COLOR UA Pale Yellow Pale to Dark Yellow 05/12/2021 10:42 AM CDT [facility] [employer] [facility] CLARITY UA Slightly Cloudy(A) Clear 05/12/2021 10:42 AM CDT [facility] [employer] [facility] SPECIFIC GRAVITY UA 1.015 1.003 - 1.035 05/12/2021 10:42 AM CDT [facility] [employer] [facility] PH UA 6.0 5.0 - 8.0 05/12/2021 10:42 AM CDT [facility] [employer] [facility] LEUKOCYTE ESTERASE UA 3+(A) Negative 05/12/2021 10:42 AM CDT [facility] [employer] [facility] NITRITE UA Negative Negative 05/12/2021 10:42 AM CDT [facility] [employer] [facility] PROTEIN UA Negative Negative 05/12/2021 10:42 AM CDT [facility] [employer] [facility] GLUCOSE UA Negative Negative 05/12/2021 10:42 AM CDT [facility] [employer] [facility] KETONES UA Negative Negative 05/12/2021 10:42 AM CDT [facility] [employer] [facility] UROBILINOGEN UA Normal <2.0 mg/dL 10:42 AM CDT [facility] [employer] [facility] BILIRUBIN UA Negative Negative 05/12/2021 10:42 AM CDT [facility] [employer] [facility] BLOOD UA Negative Negative 05/12/2021 10:42 AM CDT [facility] WBC UA 11-25(A) 0 - 2 /hpf 05/12/2021 10:42 AM CDT [facility] RBC UA 6-10(A) 0 - 2 /hpf 05/12/2021 10:42 AM CDT [facility] BACTERIA UA 1+(A) Negative /hpf 05/12/2021 10:42 AM CDT [facility] EPITHELIAL CELLS, URINE 0-5 0 - 5 /hpf 05/12/2021 10:42 AM CDT [facility] HYALINE CAST None Seen None Seen, 0-2 /lpf 05/12/2021 10:42 AM CDT [facility] YEAST, BUDDING Present(A) Absent 05/12/2021 10:42 AM CDT [facility] Urine URINE SPECIMEN OBTAINED BY CLEAN CATCH PROCEDURE / Unknown Collection / Unknown 05/11/2021 7:53 PM CDT 05/12/2021 10:22 AM CDT Narrative [facility] - 05/12/2021 10:42 AM CDT Based on results, a urine culture has been reflexed. us Nargis Guy MD URINE ORDERABLES Final Result [facility] CLIA# [id number] [place] [address] documented in this encounter Visit Diagnoses Not on filedocumented in this encounter
--- OUTSIDE RECORDS SUMMARY | 2024-12-14 03:37 | XMS_ITS | Encounter Summary ---
Author Organization [facility] Address [address] [place] [address] Care Team Providers Care Lead Setter Name Role Phone Unavailable Primary Care Provider Unavailabl e Encounter Details Date Type Department Care Team (Late st Contact Info) Description 06/11/2021 Lab Requisition [facility] [id number] [place] [address] [place] [id number] [place] [address] Social History Tobacco Use Types [...]
--- OUTSIDE RECORDS SUMMARY | 2024-12-14 03:37 | XMS_ITS | Encounter Summary ---
Author Organization [facility] Address [address] [place] [address] Care Team Providers Care Shellfish Farming Supervisor Name Role Phone Unavailable Primary Care Provider Unavailabl e Encounter Details Date Type Department Care Team (Late st Contact Info) Description 05/16/2021 Lab Requisition [facility] Laboratory Services [address] [place] [address] [place] [address] [place] [address] Social History Tobacco Use Types [...] Procedure Name Priority Date/Time Associated Diagnosis Comments BASIC METABOLIC PANEL Routine 05/16/2021 3:00 AM CDT documented in this encounter Results * (ABNORMAL) BASIC METABOLIC PANEL (05/16/2021 3:00 AM CDT) SODIUM 136 136 - 145 mmol/L 05/16/2021 12:14 PM CDT [facility] POTASSIUM 4.9 3.4 - 5.1 mmol/L 05/16/2021 12:14 PM CDT [facility] CHLORIDE 99 98 - 107 mmol/L 05/16/2021 12:14 PM CDT [facility] CO2 23 22 - 29 mmol/L 05/16/2021 12:14 PM CDT [facility] CALCIUM 8.6 8.6 - 10.4 mg/dL 05/16/2021 12:14 PM CDT [facility] BUN 27(H) 6 - 20 mg/dL 05/16/2021 12:14 PM CDT [facility] CREATININE 2.53(H) 0.51 - 0.95 mg/dL 05/16/2021 12:14 PM CDT [facility] GLUCOSE 126(H) 74 - 99 mg/dL 05/16/2021 12:14 PM T [facility] GFR 19 mL/min/1.7 3 sq meter 05/16/2021 12:14 PM T [facility] Comment: eGFR has not been validated for [...] please refer to the GFR result. GFR, 24 mL/min/1.7 3 sq meter 05/16/2021 12:14 PM CDT [facility] ANION GAP 14 8 - 16 mmol/L 05/16/2021 12:14 PM CDT [facility] Blood 05/16/2021 3:00 AM CDT 05/16/2021 11:44 AM CDT us Nargis Guy MD CHEMISTRY ORDERABLES Final Resul t [facility] CLIA# [id number] [place] [address] documented in this encounter Visit Diagnoses Not on filedocumented in this encounter
--- OUTSIDE RECORDS SUMMARY | 2024-12-14 03:37 | XMS_ITS | Encounter Summary ---
Author Organization [facility] Address [address] [place] [address] Care Team Providers Care Waistband Setter Lockstitch Name Role Phone Unavailable Primary Care Provider Unavailabl e Encounter Details Date Type Department Care Team (Late st Contact Info) Description 06/11/2021 Lab Requisition [facility] Laboratory Services [address] [place] [address] [place] [address] [place] [address] Social History Tobacco Use [...] Name Priority Date/Time Associated Diagnosis Comments URINALYSIS W/REFLEX MICROSCOPIC Routine 06/11/2021 12:01 AM CDT URINE CULTURE Routine 06/11/2021 12:01 AM CDT documented in this encounter Results * (ABNORMAL) URINALYSIS WITH REFLEX MICROSCOPIC (06/11/2021 12:01 AM CDT) COLOR UA Yellow Pale to Dark Yellow 06/11/2021 7:56 AM CDT [facility] SERVICES [facility] CLARITY UA Slightly Cloudy(A) Clear 06/11/2021 7:56 AM CDT [facility]ORY SERVICES - [facility] SPECIFIC GRAVITY UA 1.006 1.003 - 1.035 06/11/2021 7:56 AM CDT [facility]OR[facility]ORY SERVICES - [facility] PH UA 6.0 5.0 - 8.0 06/11/2021 7:56 AM CDT [facility]OR[facility] LEUKOCYTE ESTERASE UA 3+(A) Negative 06/11/2021 7:56 AM CDT [facility] NITRITE UA Negative Negative 06/11/2021 7:56 AM CDT [facility]OR[facility]ORY SERVICES [facility] PROTEIN UA Negative Negative 06/11/2021 7:56 AM CDT [facility]ORY SERVICES [facility] GLUCOSE UA Negative Negative 06/11/2021 7:56 AM CDT [facility]ORY SERVICES [facility] KETONES UA Negative Negative 06/11/2021 7:56 AM CDT [facility] UROBILINOGEN UA Normal <2.0 mg/dL 7:56 AM CDT [facility]ORY SERVICES [facility] BILIRUBIN UA Negative Negative 06/11/2021 7:56 AM CDT [facility] BLOOD UA 1+(A) Negative 06/11/2021 7:56 AM CDT [facility] SERVICES [facility] WBC UA 11-25(A) 0 - 2 /hpf 06/11/2021 7:56 AM CDT [facility] RBC UA 3-5(A) 0 - 2 /hpf 06/11/2021 7:56 AM CDT [facility]ORY SERVICES [facility] BACTERIA UA Negative Negative /hpf 06/11/2021 7:56 AM CDT [facility] SERVICES [facility] EPITHELIAL CELLS, URINE 0-5 0 - 5 /hpf 06/11/2021 7:56 AM CDT [facility] SERVICES [facility] HYALINE CAST None Seen None Seen, 0-2 /lpf 06/11/2021 7:56 AM CDT [facility] Urine URINE SPECIMEN OBTAINED BY CLEAN CATCH PROCEDURE / Unknown Collection / Unknown 06/11/2021 12:01 AM CDT 06/11/2021 7:42 AM CDT us Nargis Guy MD URINE ORDERABLES Final Result [facility] [employer] [facility] CLIA# [id number] [place] [address] * URINE CULTURE (06/11/2021 12:01 AM CDT) CULTURE No growth at 24 hours 06/12/2021 1:08 PM CDT [facility] Urine Collection / Unknown 06/11/2021 12:01 AM CDT 06/11/2021 7:42 AM CDT us Nargis Guy MD MICROBIOLOGY - GENERAL ORDERABLE S Final Result Performing Organization Address City/[facility]/ZIP Co de Phone Number [facility] [employer] [facility] CLIA# [id number] [address] [place] [address] documented in this encounter Visit Diagnoses Not on filedocumented in this encounter
--- OUTSIDE RECORDS SUMMARY | 2024-12-14 03:37 | XMS_ITS | Encounter Summary ---
Author Organization [facility] Address [address] [place] [address] Care Team Providers Care Certified Prosthetist/Orthotist Name Role Phone Unavailable Primary Care Provider Unavailabl e Encounter Details Date Type Department Care Team (Late st Contact Info) Description 05/14/2021 Lab Requisition [facility] Laboratory Services [address] [place] [address] [place] [address] [place] [address] Social History Tobacco Use Types [...] have Coronavirus / COVID-19? Unable to assess 05/17/2021 1:55 PM CDT documented as of this encounter Plan of Treatment Not on file documented as of this encounter Procedures Procedure Name Priority Date/Time Associated Diagnosis Comments CBC WITH DIFFERENTIAL Routine 05/14/2021 3:30 AM CDT BASIC METABOLIC PANEL Routine 05/14/2021 3:30 AM CDT documented in this encounter Results * (ABNORMAL) CBC WITH DIFFERENTIAL (05/14/2021 3:30 AM CDT) WBC 6.7 4.5 - 10.5 K/uL 05/14/2021 6:03 AM CDT [facility] RBC 2.60(L) 3.90 - 4.90 M/uL 05/14/2021 6:03 AM [facility]ORY [facility] HEMOGLOBIN 7.6(L) 11.8 - 14.8 g/dL 05/14/2021 6:03 AM [facility]OR[facility]ORY [facility] HEMATOCRIT 22.9(L) 35.5 - 44.0 % 05/14/2021 6:03 [facility] MCV 88.1 82.0 - 99.0 fL 05/14/2021 6:03 AM [facility] MCH 29.3 27.8 - 34.5 pg 05/14/2021 6:03 AM [facility]ORY [facility] MCHC 33.3 32.5 - 35.5 g/dL 05/14/2021 6:03 AM [facility]ORY [facility] RDW 15.0(H) 11.5 - 14.5 % 05/14/2021 6:03 AM CDT [facility] PLATELETS 168 160 - 420 K/uL 05/14/2021 6:03 AM [facility]ORY [facility] MPV 8.5(L) 8.7 - 12.7 fL 05/14/2021 6:03 AM CDT [facility] NEUTROPHILS 56 % 05/14/2021 6:03 AM CDT [facility] LYMPHOCYTES 26 % 05/14/2021 6:03 AM CDT [facility] MONOCYTES 13 % 05/14/2021 6:03 AM CDT [facility] LABORATORY SERVICES [facility] EOSINOPHILS 5 % 05/14/2021 6:03 AM CDT [facility] BASOPHILS 1 % 05/14/2021 6:03 AM CDT [facility] NEUTROPHIL ABSOLUTE 3.70 1.90 - 7.00 K/uL 05/14/2021 6:03 AM [facility] LYMPHOCYTE ABSOLUTE 1.70 0.70 - 4.50 K/uL 05/14/2021 6:03 AM CDT [facility] MONOCYTE ABSOLUTE 0.80 0.10 - 1.30 K/uL 05/14/2021 6:03 AM CDT [facility] LABORATORY SERVICES - [facility] EOSINOPHIL ABSOLUTE 0.30 0.00 - 0.70 K/uL 05/14/2021 6:03 AM CDT [facility] LABORATORY SERVICES - [facility] BASOPHILS ABSOLUTE 0.10 0.00 - 0.20 K/uL 05/14/2021 6:03 AM CDT [facility]ORY [facility] Blood BLOOD SPECIMEN / Unknown Collection / Unknown 05/14/2021 3:30 AM CDT 05/14/2021 5:27 AM CDT Nargis Guy MD HEMATOLOGY ORDERABLES Final Resu lt [facility] CLIA# [id number] [place] [address] * (ABNORMAL) BASIC METABOLIC PANEL (05/14/2021 3:30 AM CDT) Pathologist [facility] SODIUM 140 136 - 145 mmol/L 05/14/2021 6:38 AM CDT [facility]ORY [facility] POTASSIUM 4.2 3.4 - 5.1 mmol/L 05/14/2021 6:38 AM CDT [facility] CHLORIDE 105 98 - 107 mmol/L 05/14/2021 6:38 AM CDT [facility] CO2 21(L) 22 - 29 mmol/L 05/14/2021 6:38 AM CDT [facility] CALCIUM 8.9 8.6 - 10.4 mg/dL 05/14/2021 6:38 AM CDT [facility] BUN 22(H) 6 - 20 mg/dL 05/14/2021 6:38 AM CDT [facility] CREATININE 2.50(H) 0.51 - 0.95 mg/dL 05/14/2021 6:38 AM CDT [facility] GLUCOSE 96 74 - 99 mg/dL 05/14/2021 6:38 AM CDT [facility] GFR 20 mL/min/1.7 3 sq meter 05/14/2021 6:38 AM CDT [facility] Comment: eGFR has not been validated for [...] result. GFR, 24 mL/min/1.7 3 sq meter 05/14/2021 6:38 AM CDT [facility] ANION GAP 14 8 - 16 mmol/L 05/14/2021 6:38 AM CDT [facility] Blood BLOOD SPECIMEN / Unknown Collection / Unknown 05/14/2021 3:30 AM CDT 05/14/2021 5:27 AM CDT us Nargis Guy MD CHEMISTRY ORDERABLES Final Resul t [facility] [employer] [facility] CLIA# [id number] [place] [address] documented in this encounter Visit Diagnoses Not on filedocumented in this encounter
--- OUTSIDE RECORDS SUMMARY | 2024-12-14 03:37 | XMS_ITS | Encounter Summary ---
Author Organization [facility] Address [address] [place] [address] Care Team Providers Care House Wrecker Name Role Phone Unavailable Primary Care Provider Unavailabl e Encounter Details Date Type Department Care Team (Late st Contact Info) Description 05/10/2021 Lab Requisition [facility] Laboratory Services [address] [place] [address] [place] [address] [place] [address] Social History Tobacco Use Types [...] Associated Diagnosis Comments CBC WITH DIFFERENTIAL Routine 05/10/2021 6:11 AM CDT PTT Routine 05/10/2021 6:11 AM CDT PROTIME-INR Routine 05/10/2021 6:11 AM CDT PREALBUMIN Routine 05/10/2021 6:11 AM CDT COMPREHENSIVE METABOLIC PANEL Routine 05/10/2021 6:11 AM CDT documented in this encounter Results * (ABNORMAL) PTT (05/10/2021 6:11 AM CDT) PTT 41.3(H) 23.1 - 37.1 seconds 05/10/2021 9:45 AM CDT [facility] Blood Collection / Unknown 05/10/2021 6:11 AM CDT 05/10/2021 9:23 AM CDT Nargis Guy MD HEMATOLOGY ORDERABLES Final Resu lt [facility]# [id number] [place] [address] * PROTIME-INR (05/10/2021 6:11 AM CDT) Pathologist [facility] PROTIME 14.4 11.5 - 14.7 Seconds 05/10/2021 9:45 AM CDT [facility] [employer] [facility] INR 1.1 0.9 - 1.1 05/10/2021 9:45 AM CDT [facility] Blood Collection / Unknown 05/10/2021 6:11 AM CDT 05/10/2021 9:23 AM CDT Nargis Guy MD HEMATOLOGY ORDERABLES [id number] [place] [address] * (ABNORMAL) PREALBUMIN (05/10/2021 6:11 AM CDT) Pathologist [facility] PREALBUMIN 13(L) 20 - 40 mg/dL 05/10/2021 10:20 AM CDT [facility] Blood Collection / Unknown 05/10/2021 6:11 AM CDT 05/10/2021 9:23 AM CDT Nargis Guy MD CHEMISTRY ORDERABLES Final Resul t [facility] CLIA# [id number] [place] [address] * (ABNORMAL) CBC WITH DIFFERENTIAL (05/10/2021 6:11 AM CDT) WBC 9.2 4.5 - 10.5 K/uL 05/10/2021 9:31 AM CDT [facility] RBC 2.81(L) 3.90 - 4.90 M/uL 05/10/2021 9:31 AM CDT [facility] HEMOGLOBIN 8.3(L) 11.8 - 14.8 g/dL 05/10/2021 9:31 AM CDT [facility] HEMATOCRIT 25.0(L) 35.5 - 44.0 % 05/10/2021 9:31 AM CDT [facility] [employer] [facility] MCV 88.9 82.0 - 99.0 fL 05/10/2021 9:31 AM CDT [facility] MCH 29.7 27.8 - 34.5 pg 05/10/2021 9:31 AM CDT [facility] MCHC 33.4 32.5 - 35.5 g/dL 05/10/2021 9:31 AM CDT [facility] RDW 14.7(H) 11.5 - 14.5 % 05/10/2021 9:31 AM CDT [facility] LABORATORY [facility] PLATELETS 421(H) 160 - 420 K/uL 05/10/2021 9:31 AM CDT [facility] MPV 7.9(L) 8.7 - 12.7 fL 05/10/2021 9:31 AM CDT [facility] NEUTROPHILS 68 45 - 70 % 05/10/2021 9:31 AM CDT [facility] LYMPHOCYTES 19 16 - 45 % 05/10/2021 9:31 AM CDT [facility] LABORATORY SERVICES - [facility] MONOCYTES 10 3 - 13 % 05/10/2021 9:31 AM CDT [facility] LABORATORY SERVICES - [facility] EOSINOPHILS 3 0 - 7 % 05/10/2021 9:31 AM CDT [facility] LABORATORY SERVICES - [facility] BASOPHILS 1 0 - 2 % 05/10/2021 9:31 AM CDT [facility] LABORATORY SERVICES [facility] NEUTROPHIL ABSOLUTE 6.20 1.90 - 7.00 K/uL 05/10/2021 9:31 AM CDT [facility] LABORATORY SERVICES - [facility] LYMPHOCYTE ABSOLUTE 1.70 0.70 - 4.50 K/uL 05/10/2021 9:31 AM CDT [facility] LABORATORY SERVICES - [facility] MONOCYTE ABSOLUTE 0.90 0.10 - 1.30 K/uL 05/10/2021 9:31 AM CDT [facility] LABORATORY SERVICES - [facility] EOSINOPHIL ABSOLUTE 0.20 0.00 - 0.70 K/uL 05/10/2021 9:31 AM CDT [facility] LABORATORY SERVICES [facility] BASOPHILS ABSOLUTE 0.10 0.00 - 0.20 K/uL 05/10/2021 9:31 AM CDT [facility] LABORATORY SERVICES [facility] Blood Collection / Unknown 05/10/2021 6:11 AM CDT 05/10/2021 9:23 AM CDT us Nargis Guy MD HEMATOLOGY ORDERABLES Final Resu lt [facility] CLIA# [id number] [place] [address] * (ABNORMAL) COMPREHENSIVE METABOLIC PANEL (05/10/2021 6:11 AM CDT) SODIUM 143 136 - 145 mmol/L 05/10/2021 10:18 AM CDT [facility] POTASSIUM 4.2 3.4 - 5.1 mmol/L 05/10/2021 10:18 AM CDT [facility] CHLORIDE 109(H) 98 - 107 mmol/L 05/10/2021 10:18 AM CDT [facility] CO2 20(L) 22 - 29 mmol/L 05/10/2021 10:18 AM [facility] CALCIUM 8.5(L) 8.6 - 10.4 mg/dL 05/10/2021 10:18 AM [facility] BUN 20 6 - 20 mg/dL 05/10/2021 10:18 AM [facility] CREATININE 2.50(H) 0.51 - 0.95 mg/dL 05/10/2021 10:18 AM [facility] GLUCOSE 96 74 - 99 mg/dL 05/10/2021 10:18 AM [facility] TOTAL PROTEIN 6.6 6.3 - 8.7 g/dL 05/10/2021 10:18 AM [facility] ALBUMIN 2.6(L) 3.5 - 5.2 g/dL 05/10/2021 10:18 AM [facility] BILIRUBIN TOTAL 0.2(L) 0.3 - 1.2 mg/dL 05/10/2021 10:18 AM [facility] ALKALINE PHOSPHATASE 94 40 - 150 U/L 05/10/2021 10:18 AM [facility] AST 24 0 - 33 U/L 05/10/2021 10:18 AM [facility] ALT 17 0 - 33 U/L 05/10/2021 10:18 AM [facility] GFR 20 mL/min/1.7 3 sq meter 05/10/2021 10:18 AM [facility] Comment: eGFR has not been validated for [...] result. GFR, 24 mL/min/1.7 3 sq meter 05/10/2021 10:18 AM CDT [facility] ANION GAP 14 8 - 16 mmol/L 05/10/2021 10:18 AM CDT [facility] Blood Collection / Unknown 05/10/2021 6:11 AM CDT 05/10/2021 9:23 AM CDT us Nargis Guy MD CHEMISTRY ORDERABLES Final Resul t [facility] CLIA# [id number] [place] [address] documented in this encounter Visit Diagnoses Not on filedocumented in this encounter
--- OUTSIDE RECORDS SUMMARY | 2024-12-14 03:37 | XMS_ITS | Encounter Summary ---
Author Organization [facility] Address [address] [place] [address] Care Team Providers Care Electrical Instrument Maker Name Role Phone Unavailable Primary Care Provider Unavailabl e Encounter Details Date Type Department Care Team (Late st Contact Info) Description 05/19/2021 Lab Requisition [facility] [address] [place] [address] [facility], External Provider [address] [place] [address] Social History Tobacco Use Types Packs/Day Years [...] Procedure Name Priority Date/Time Associated Diagnosis Comments LACTIC ACID Stat 05/19/2021 3:20 AM CDT CBC WITH DIFFERENTIAL Routine 05/19/2021 3:20 AM CDT PTT Routine 05/19/2021 3:20 AM CDT PROTIME-INR Routine 05/19/2021 3:20 AM CDT COMPREHENSIVE METABOLIC PANEL Routine 05/19/2021 3:20 AM CDT documented in this encounter Results * PROTIME-INR (05/19/2021 3:20 AM CDT) PROTIME 14.0 11.5 - 14.7 Seconds 05/19/2021 4:12 AM CDT [facility] INR 1.1 0.9 - 1.1 05/19/2021 4:12 AM CDT [facility] Blood Collection / Unknown 05/19/2021 3:20 AM CDT 05/19/2021 3:49 AM CDT External Provider [facility] HEMATOLOGY ORDERABLES Fin al Result [facility] CLIA# [id number] [place] [address] * (ABNORMAL) LACTIC ACID (05/19/2021 3:20 AM CDT) LACTIC ACID 4.5(H) <=2.0 mmol/L 05/19/2021 4:19 AM CDT [facility] Blood Collection / Unknown 05/19/2021 3:20 AM CDT 05/19/2021 3:49 AM CDT External Provider [facility] CHEMISTRY ORDERABLES Jennie l Result [facility] CLIA# [id number] [place] [address] * PTT (05/19/2021 3:20 AM CDT) PTT 23.8 23.1 - 37.1 seconds 05/19/2021 4:12 AM CDT [facility] Blood Collection / Unknown 05/19/2021 3:20 AM CDT 05/19/2021 3:49 AM CDT External Provider [facility] HEMATOLOGY ORDERABLES Fin al Result [facility] CLIA# [id number] [place] [address] * (ABNORMAL) CBC WITH DIFFERENTIAL (05/19/2021 3:20 AM CDT) WBC 26.7(H) 4.5 - 10.5 K/uL 05/19/2021 4:03 AM CDT [facility] RBC 2.46(L) 3.90 - 4.90 M/uL 05/19/2021 4:03 AM CDT [facility] HEMOGLOBIN 6.9(LL) 11.8 - 14.8 g/dL 05/19/2021 4:03 AM CDT [facility] HEMATOCRIT 22.1(L) 35.5 - 44.0 % 05/19/2021 4:03 AM CDT [facility] MCV 89.7 82.0 - 99.0 fL 05/19/2021 4:03 AM CDT [facility] MCH 27.8 27.8 - 34.5 pg 05/19/2021 4:03 AM CDT [facility] MCHC 31.0(L) 32.5 - 35.5 g/dL 05/19/2021 4:03 AM CDT [facility] RDW 15.4(H) 11.5 - 14.5 % 05/19/2021 4:03 AM CDT [facility] PLATELETS 329 160 - 420 K/uL 05/19/2021 4:03 AM CDT [facility] MPV 8.8 8.7 - 12.7 fL 05/19/2021 4:03 AM CDT [facility] NEUTROPHILS 57 % 05/19/2021 4:03 AM CDT [facility] LYMPHOCYTES 30 % 05/19/2021 4:03 AM CDT [facility] MONOCYTES 10 % 05/19/2021 4:03 AM CDT [facility] EOSINOPHILS 2 % 05/19/2021 4:03 AM CDT [facility] BASOPHILS 0 % 05/19/2021 4:03 AM CDT [facility] NEUTROPHIL ABSOLUTE 15.30(H) 1.90 - 7.00 K/uL 05/19/2021 4:03 AM CDT [facility] LYMPHOCYTE ABSOLUTE 8.10(H) 0.70 - 4.50 K/uL 05/19/2021 4:03 AM CDT [facility] MONOCYTE ABSOLUTE 2.60(H) 0.10 - 1.30 K/uL 05/19/2021 4:03 AM CDT [facility] EOSINOPHIL ABSOLUTE 0.60 0.00 - 0.70 K/uL 05/19/2021 4:03 AM CDT [facility] BASOPHILS ABSOLUTE 0.10 0.00 - 0.20 K/uL 05/19/2021 4:03 AM CDT [facility] Blood Collection / Unknown 05/19/2021 3:20 AM CDT 05/19/2021 3:49 AM CDT us External Provider [facility] HEMATOLOGY ORDERABLES Fin al Result [facility] CLIA# [id number] [place] [address] * (ABNORMAL) COMPREHENSIVE METABOLIC PANEL (05/19/2021 3:20 AM CDT) SODIUM 134(L) 136 - 145 mmol/L 05/19/2021 4:26 AM CDT [facility] POTASSIUM 6.6(HH) 3.4 - 5.1 mmol/L 05/19/2021 4:26 AM CDT [facility] CHLORIDE 99 98 - 107 mmol/L 05/19/2021 4:26 AM CDT [facility] CO2 18(L) 22 - 29 mmol/L 05/19/2021 4:26 AM CDT [facility] CALCIUM 8.7 8.6 - 10.4 mg/dL 05/19/2021 4:26 AM [facility] BUN 64(H) 6 - 20 mg/dL 05/19/2021 4:26 AM [facility] CREATININE 4.16(H) 0.51 - 0.95 mg/dL 05/19/2021 4:26 AM [facility] GLUCOSE 280(H) 74 - 99 mg/dL 05/19/2021 4:26 AM [facility] TOTAL PROTEIN 6.6 6.3 - 8.7 g/dL 05/19/2021 4:26 AM [facility] ALBUMIN 2.5(L) 3.5 - 5.2 g/dL 05/19/2021 4:26 AM [facility] BILIRUBIN TOTAL 0.2(L) 0.3 - 1.2 mg/dL 05/19/2021 4:26 AM [facility] ALKALINE PHOSPHATASE 94 40 - 150 U/L 05/19/2021 4:26 AM [facility] AST 31 0 - 33 U/L 05/19/2021 4:26 AM [facility] ALT 19 0 - 33 U/L 05/19/2021 4:26 AM [facility] GFR 11 mL/min/1.7 3 sq meter 05/19/2021 4:26 AM [facility] Comment: eGFR has not been validated for [...] please refer to the GFR result. GFR, 13 mL/min/1.7 3 sq meter 05/19/2021 4:26 AM [facility] ANION GAP 17(H) 8 - 16 mmol/L 05/19/2021 4:26 AM CDT [facility] Blood Collection / Unknown 05/19/2021 3:20 AM CDT 05/19/2021 3:49 AM CDT us External Provider [facility] CHEMISTRY ORDERABLES Jennie painter Result [facility] CLIA# [id number] [place] [address] documented in this encounter Visit Diagnoses Not on filedocumented in this encounter
--- OUTSIDE RECORDS SUMMARY | 2024-12-14 03:37 | XMS_ITS | Encounter Summary ---
Author Organization [facility] Address [address] [place] [address] Care Team Providers Care Machine Room Engineer Name Role Phone Murali Silva MD Primary Care Provider [phone] Karime Aguilera RN [facility] Gurvinder Stephens MD Primary Care Provider [phone] Reason for Visit * Reason Onset Date Comments Update 05/06/2018 Encounter Details Date Type Department Care Team (Late st Contact Info) Description 05/06/2018 Telephone [facility] [address] [place] [address] Christy Khan MD [address] [address] Update Social History Tobacco Use Types Packs/Day [...] like a call back please. Pt callback #[phone] documented in this encounter Plan of Treatment Not on file documented as of this encounter Visit Diagnoses Not on filedocumented in this encounter Care Teams Machine Room Engineer Relationship Specialty Start Date End Date Murali Silva MD [address] [place] [address] PCP - General 03/03/18 12/31/21 Gurvinder Renteria MD [address] [facility] [address] [place] [address] PCP - General 01/01/22 Karime Aguilera RN 05/07/18 documented as of this encounter
--- OUTSIDE RECORDS SUMMARY | 2024-12-14 03:37 | XMS_ITS | Encounter Summary ---
Author Organization [facility] Address [address] [place] [address] Care Team Providers Care Software Development Specialist Name Role Phone Unavailable Primary Care Provider Unavailabl e Encounter Details Date Type Department Care Team (Late st Contact Info) Description 05/18/2021 Lab Requisition [facility] [address] [place] [address] [place] [address] [place] [address] Social History Tobacco Use Types [...] Associated Diagnosis Comments BASIC METABOLIC PANEL Routine 05/18/2021 4:57 AM CDT documented in this encounter Results * (ABNORMAL) BASIC METABOLIC PANEL (05/18/2021 4:57 AM CDT) SODIUM 139 136 - 145 mmol/L 05/18/2021 8:44 AM CDT [facility] POTASSIUM 5.7(H) 3.4 - 5.1 mmol/L 05/18/2021 8:44 AM CDT [facility] CHLORIDE 101 98 - 107 mmol/L 05/18/2021 8:44 AM CDT [facility] CO2 24 22 - 29 mmol/L 05/18/2021 8:44 AM T [facility] CALCIUM 8.7 8.6 - 10.4 mg/dL 05/18/2021 8:44 AM CDT [facility] BUN 58(H) 6 - 20 mg/dL 05/18/2021 8:44 AM T [facility] CREATININE 3.20(H) 0.51 - 0.95 mg/dL 05/18/2021 8:44 AM T [facility] GLUCOSE 102(H) 74 - 99 mg/dL 05/18/2021 8:44 AM T [facility] GFR 15 mL/min/1.7 3 sq meter 05/18/2021 8:44 AM T [facility] Comment: eGFR has not [...] please refer to the GFR result. GFR, 18 mL/min/1.7 3 sq meter 05/18/2021 8:44 AM CDT [facility] ANION GAP 14 8 - 16 mmol/L 05/18/2021 8:44 AM T [facility] Blood Collection / Unknown 05/18/2021 4:57 AM CDT 05/18/2021 8:11 AM CDT us Nargis Guy MD CHEMISTRY ORDERABLES Final Resul t [facility] CLIA# [id number] [place] [address] documented in this encounter Visit Diagnoses Not on filedocumented in this encounter
--- NOTE | 2024-12-14 03:54 | ECG_ITS ---
Test Date: 2024-12-14 04:52:32 Measurements Intervals [place] Rate: 76 P: 52 [place]: 203 QRS: 15 QRSD: 100 T: 79 QT: 379 QTc: 427 Interpretive Statements SINUS RHYTHM No previous ECG available for comparison Electronically Signed On 12-14-2024 16:15:52 [employer]PA[employer] by Bobby Terry M.D.
--- NOTE | 2024-12-14 04:04 | ED.LOWEXIN ---
HPI - Extremity Injury (Lower) General Chief Complaint: Extremity Injury, Lower Stated Complaint: falls and weakness Time Seen by Provider: 12/14/24 03:09 History of Present Illness HPI Narrative: 64-year-old female with a past medical history included morbid obesity, diabetes type 2, COPD, coronary disease, atrial fibrillation status post cardioversion currently on Eliquis therapy. Today she presents to the emergency room with chief complaint of frequent falls and generalized weakness for last few days. She states that she is unable to ambulate secondary to her morbid obesity and feels weaker than normal. She has fallen several times these last few days to weeks and injured herself by having various bruises to her legs. She states that she does have some diabetic neuropathy but is able to feel her legs and feel the ground. Normally ambulates with the assistance of electric wheelchair. Did not strike her head or lose consciousness during any of the falls but does take Eliquis. Denies any chest pain, abdominal pain, back pain. She thinks she might have a urinary tract infection as she has had previous falls from that. She resides at home and has a family member help take care of her. Related Data Home Medications ?Medication ?Instructions ?Recorded ?Confirmed ?Last Taken ?Type atorvastatin 40 mg tablet 40 mg PO HS 08/09/23 09/30/24 12/14/23 History citalopram 40 mg tablet 40 mg PO DAILY 08/09/23 09/30/24 12/14/23 History famotidine 40 mg tablet 40 mg PO DAILY 08/09/23 09/30/24 12/14/23 History gabapentin 800 mg tablet 800 mg PO TID 08/09/23 09/30/24 12/14/23 History lisinopril 30 mg tablet 30 mg PO DAILY 08/09/23 09/30/24 12/14/23 History nortriptyline 25 mg capsule 25 mg PO TID 08/09/23 09/30/24 12/14/23 History oxybutynin chloride 5 mg tablet 5 mg PO HS 08/09/23 09/30/24 12/14/23 History primidone 250 mg tablet 250 mg PO BID 08/09/23 09/30/24 12/14/23 History ropinirole 3 mg tablet 3 mg PO HS 08/09/23 09/30/24 12/14/23 History insulin glargine 100 unit/mL (3 42 unit subcut QAM 12/15/23 09/30/24 12/14/23 History mL) subcutaneous pen (Basaglar KwikPen U-100 Insulin) insulin glargine 100 unit/mL (3 46 unit subcut QHS 12/15/23 09/30/24 12/14/23 History mL) subcutaneous pen (Basaglar KwikPen U-100 Insulin) metformin 500 mg tablet 500 mg PO BID 12/15/23 09/30/24 12/14/23 History tolnaftate 1 % topical powder 1 applic topical Q12HR PRN Rash 12/15/23 09/30/24 Unknown History budesonide-formoterol HFA 160 1 inh inhalation DAILY PRN 03/10/24 09/30/24 Unknown History mcg-4.5 mcg/actuation aerosol Shortness Of Breath inhaler (Symbicort) docusate sodium 100 mg capsule 100 mg PO PRN PRN Constipation 03/10/24 09/30/24 Unknown History meloxicam 15 mg tablet 15 mg PO DAILY 09/30/24 09/30/24 Unknown History Allergies Allergy/AdvReac Type Severity Reaction Status Date / Time morphine Allergy Severe Swelling Verified 09/30/24 13:53 of Lip/Tongue/Throat Review of Systems Review of Systems: As reviewed above in [facility] Past Medical History Medical History Restless leg syndrome Neuropathy Asthma Heart failure Anxiety and depression Suicide attempt x3, last attempt in Bipolar disorder Arthritis HLD (hyperlipidemia) Migraine COPD (chronic obstructive pulmonary disease) Hypertension Atrial fibrillation with RVR Tobacco abuse Degenerative joint disease of knee Diabetes mellitus with hyperglycemia Morbid obesity with BMI of 60.0-69.9, adult Cellulitis of groin necrotizing fasciitis Frequent falls MINA (acute kidney injury) Cellulitis [facility]2006 Surgical History Surgical History 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 History of cholecystectomy History of heart artery stent Family History Family History Father Acute myocardial infarction Hypertension Grandparent Chronic obstructive pulmonary disease Diabetes mellitus Mother Congestive heart failure Diabetes mellitus Hypertension Other Leukemia Social History Social History Smoking packs per day: 2 Smoking cigarettes per day: 40.0 Years smoked: 45 Smoking pack-years: 90.00 Smoking status: Current every day smoker Tobacco type: cigarettes Alcohol intake: current Drinks per week: 1 Substance use: current Substance use type: marijuana Other substance usage details: daily gummies and smoke Do You Feel Safe in your Home?: Yes Lack of Transportation: YES Lack of Food: Never True Current Housing: I Have Housing Concerned About Future Housing: No Difficulty Paying Gas/Electric Bills: No Difficulty Paying for Meds: No Currently Unemployed: No Education: High School Diploma/GED Difficulty w/ Childcare or Family Care: No Spiritual care concerns: No Exam Narrative: GENERAL: Morbidly obese, not in any acute distress, answering all questions appropriately HEAD: [Normocephalic, atraumatic.] EYES: [PERRLA and EOMI.] ENT: Nares clear, no rhinorrhea or epistaxis. Mucous membranes moist. NECK: Supple. CHEST: [Clear to auscultation. No respiratory distress.] HEART: [Regular rate and rhythm]. No murmur heard. [Normal peripheral pulses.] 2+ dorsalis pedis pulse, warm extremities with 2+ cap refill in both feet and hands ABDOMEN: [Soft, nondistended], [nontender], [No rigidity or guarding] EXTREMITIES: Large extremities with limited range of motion secondary to obesity, bruising noted over the lateral aspect of the right knee, passive range of motion is full. Plantar dorsiflexion of the ankle is 5/5 with good strength. No traumatic evidence on her upper extremities or chest/Abdo SKIN: Discoloration to the bilateral feet with chronic appearing venous stasis dermatitis to the bilateral shins and up to the knees. NEURO: [No focal deficits]. Alert and oriented [x3.] PSYCH: [Normal mood and affect.] Course Vital Signs Vital signs: Vital Signs Temperature 37.1 C 12/13/24 23:00 Pulse Rate 80 12/13/24 23:00 Respiratory Rate 20 12/13/24 23:00 Blood Pressure 102/70 12/13/24 23:00 Pulse Oximetry 98 12/13/24 23:00 Oxygen Delivery Room Air 12/13/24 23:00 Temperature 37.1 C 12/13/24 23:00 Pulse Rate 80 12/13/24 23:00 Respiratory Rate 20 12/13/24 23:00 Blood Pressure 102/70 12/13/24 23:00 Pulse Oximetry 98 12/13/24 23:00 Oxygen Delivery Room Air 12/13/24 23:00 MDM - Extremity Injury (Lower) MDM Narrative Medical decision making narrative: 64-year-old female with history of morbid obesity, type 2 diabetes, COPD, coronary disease, atrial fibrillation status post cardioversion currently on Eliquis therapy. She presents from home with bilateral leg pain after frequent falls these past few days to weeks. She normally ambulates with a wheelchair, cannot bear weight on her legs without collapsing. She feels more weak than normal and thinks she has urinary tract infection. She has chronic discoloration of bilateral lower extremities but they are warm and well perfused with 2+ bounding pulses, 2+ cap refill and no concerning findings or symptoms for vascular claudication. She has full range of motion of the ankles and passive range of motion of the lower extremities without any obvious step-offs deformities but there is some bruising noted to the bilateral lower extremities most on the right knee. Given her age, risk factors and falls with Eliquis use we did scan her head to make sure there is no intracranial process such as a subdural or brain bleed otherwise. X-rays were obtained of her pelvis and bilateral lower extremity knees based on the bruising pattern. Laboratory studies and EKG were obtained. Patient would likely benefit from admission to the hospital for physical therapy and rehabilitation services depending on workup results. Urinalysis and straight catheterization ordered secondary to patient's body habitus and inability to use the restroom without significant difficulty. Urinary tract infection found on urinalysis, she was given Rocephin for this. X-rays show severe arthritis but no acute fractures or dislocations. No pelvic injury. Head CT without any acute process. Her laboratory studies were otherwise unremarkable. Patient will be admitted to the hospital for observation, PT, OT, continued treatment of her UTI and likely placement to a rehab/nursing facility based on her level of debility and inability to take care for herself. Spoke to the hospitalist Dr. Renee who accepted the admission to a medical-surgical bed at this time. Medical Records Attestation: I reviewed the patient's medical records. Lab Data Attestation: I reviewed the patient's lab results. 12/14/24 04:05 12/14/24 04:05 Labs: Lab Results 12/14/24 Range/Units 04:05 WBC 12.3 H (4.5-10.0) K/mm3 RBC 5.36 (4.2-5.4) M/mm3 Hgb 15.3 H (12.0-15.0) g/dL Hct 48.1 H (37.0-47.0) % MCV 89.7 (80-100) fl MCH 28.5 (26-34) pg MCHC 31.8 L (32-36) g/dl RDW 14.7 H (11.5-14.5) % Plt Count 308 (150-375) k/mm3 MPV 9.3 (7.4-10.4) fl Immature Gran % (Auto) 0.6 H (0-0.5) % Neut % (Auto) 53.0 (45.5-73.1) % Lymph % (Auto) 36.4 (18.3-44.2) % Mckinley % (Auto) 7.9 (2.6-8.5) % Eos % (Auto) 1.5 (0-4.4) % Baso % (Auto) 0.6 (0.2-1.2) % Lymph # (Auto) 4.49 H (0.9-3.2) K/mm3 Mckinley # (Auto) 1.0 H (0.1-0.6) K/mm3 Eos # (Auto) 0.2 (0-0.3) K/mm3 Baso # (Auto) 0.1 (0.0-0.1) K/mm3 Abs Immat Gran (auto) 0.08 H (0.00-0.031) K/mm3 Absolute Neuts (auto) 6.5 (1.3-6.7) K/mm3 Absolute Nucleated RBC 0.000 (0.0-0.012) K/mm3 Nucleated RBC % 0.0 (0.0-0.2) % Sodium 134 L (137-145) mmol/L Potassium 4.1 (3.4-5.0) mmol/L Chloride 99 (98-107) mmol/L Carbon Dioxide 28 (22-30) mmol/L Anion Gap 7 (4-12) mmol/L BUN 19 H (7-17) mg/dL Creatinine 0.90 (0.7-1.0) mg/dL Estim Creat Clear Calc 84 ml/min Estimated GFR > 60 (59 - ) Glucose 139 H (65-110) mg/dL Calcium 8.7 (8.4-10.2) mg/dL Total Bilirubin 0.6 (0.2-1.3) mg/dL AST 16 (14-36) U/L ALT 13 (6-35) U/L Alkaline Phosphatase 89 (38-126) U/L Total Protein 7.0 (6.3-8.2) g/dL Albumin 3.8 (3.5-5.1) g/dL Urine Color Yellow (Yellow) Urine Appearance Clear (Clear) Urine pH 5.5 (5.0-9.0) Ur Specific [place] 1.018 (1.001-1.035) Urine Protein Trace (Negative) mg/dL Urine Glucose (UA) 2+ H (Negative) mg/dL Urine Ketones Trace H (Negative) mg/dL Ur Blood (Man) Negative (Negative) Urine Nitrate Negative (Negative) Urine Bilirubin Negative (Negative) Urine Urobilinogen 0.2 (<2.0) mg/dL Leukocyte Esterase Rfl 1+ H (Negative) RALPH/UL Urine RBC 0-2 (0-2) /hpf Urine WBC 11-20 H (0-3) /hpf Ur Squamous Epith Cells Occasional (Few) /hpf Urine Bacteria None seen /hpf Urine Casts 0-2 Imaging Data Attestation: I personally reviewed and interpreted this imaging study as follows: My impression: Impressions Head CT 12/14/24 05:38 Impression: No significant abnormality seen. Knee X-Ray 12/14/24 06:02 Impression: Severe tricompartmental osteoarthritis. No acute fracture or dislocation seen. Knee X-Ray 12/14/24 06:03 Impression: Severe tricompartmental osteoarthritis. 2.8 cm loose body, as above. Pelvis X-Ray 12/14/24 06:11 Impression: No significant abnormality is seen. Discharge Plan Discharge Clinical Impression: Frequent falls, Physical debility, UTI (urinary tract infection), Morbid obesity Patient Disposition: Still a Patient Condition: Stable Patient Language: German Prescriptions: No Action meloxicam 15 mg tablet 15 mg PO DAILY Trulicity 3 mg/0.5 mL pen injector 3 mg subcut WEEKLY Qty: 6 1RF atorvastatin 40 mg Tablet 40 mg PO HS citalopram 40 mg Tablet 40 mg PO DAILY famotidine 40 mg Tablet 40 mg PO DAILY ropinirole 3 mg Tablet 3 mg PO HS nortriptyline 25 mg Capsule 25 mg PO TID Rx Instructions: takes at 9,1400,2100 primidone 250 mg Tablet 250 mg PO BID gabapentin 800 mg Tablet 800 mg PO TID Rx Instructions: takes at 09,1400,2100 lisinopril 30 mg Tablet 30 mg PO DAILY oxybutynin chloride 5 mg Tablet 5 mg PO HS metformin 500 mg Tablet 500 mg PO BID insulin glargine [Basaglar KwikPen U-100 Insulin] 100 unit/mL (3 mL) insulin pen 42 unit SUBCUT QAM insulin glargine [Basaglar KwikPen U-100 Insulin] 100 unit/mL (3 mL) insulin pen 46 unit SUBCUT QHS tolnaftate 1 % powder 1 applic topical Q12HR PRN (Reason: Rash) Rx Instructions: Apply to groin folds until clear then use as needed. metoprolol tartrate 50 mg Tablet 50 mg PO Q12HR Qty: 60 1RF Eliquis 5 mg Tablet 5 mg PO Q12HR Qty: 6 1RF docusate sodium 100 mg capsule 100 mg PO PRN PRN (Reason: Constipation) budesonide-formoterol [Symbicort] 160-4.5 mcg/actuation HFA aerosol inhaler 1 inh INHALATION DAILY PRN (Reason: Shortness Of Breath) (DME) FreeStyle Fredi 3 [place] Misc See Rx Instructions .Route Qty: 1 0RF Rx Instructions: use to monitor blood sugars (DME) FreeStyle Fredi 3 Plus Sensor Device See Rx Instructions .Route Qty: 2 3RF Rx Instructions: change every 15 days Follow-up/Referrals: Gurvinder Renteria MD [Primary Care Provider] - Time of Disposition: 06:26
[2024-12-14 04:11] LABS: Basophils Absolute Auto 0.1 K/mm3 (0.0-0.1); Basophils Percent Auto 0.6 % (0.2-1.2); Eosinophils Absolute Auto 0.2 K/mm3 (0-0.3); Eosinophils Percent Auto 1.5 % (0-4.4); Hematocrit 48.1 % (37.0-47.0); Hemoglobin 15.3 g/dL (12.0-15.0); Immature Granulocyte Absolute 0.08 K/mm3 (0.00-0.031); Immature Granulocyte Percent A 0.6 % (0-0.5); Lymphocytes Absolute Auto 4.49 K/mm3 (0.9-3.2); Lymphocytes Percent Auto 36.4 % (18.3-44.2); Mean Corpuscular HGB Conc 31.8 g/dl (32-36); Mean Corpuscular Hemoglobin 28.5 pg (26-34); Mean Corpuscular Volume 89.7 fl (80-100); Mean Platelet Volume 9.3 fl (7.4-10.4); Monocytes Percent Auto 7.9 % (2.6-8.5); Neutrophils Absolute Auto 6.5 K/mm3 (1.3-6.7); Platelet Count Result 308 k/mm3 (150-375); Red Blood Count 5.36 M/mm3 (4.2-5.4); Red Cell Distribution Width 14.7 % (11.5-14.5); White Blood Count 12.3 K/mm3 (4.5-10.0)
[2024-12-14 04:17] LABS: Add Urine Microscopic? YES; Appearance Urine Clear (Clear); Bacteria Urine None Seen /hpf; Bilirubin Urine Negative (Negative); Blood Urine Negative (Negative); Color Urine Yellow (Yellow); Glucose Urine UA 2+ mg/dL (Negative); Ketones Urine Trace mg/dL (Negative); Leukocyte Esterase Ur 1+ LEU/UL (Negative); Nitrate Urine Negative (Negative); Non Pathogenic Casts 0-2; Protein Urine Trace mg/dL (Negative); RBC Urine 0-2 /hpf (0-2); Specific Grav Ur 1.018 (1.001-1.035); Squamous Epithelial Cell Urine Occasional /hpf (Few); Urobilinogen Urine 0.2 mg/dL (<2.0); pH Urine 5.5 (5.0-9.0)
[2024-12-14 04:22] LABS: Alanine Aminotransferase 13 U/L (6-35); Albumin Level 3.8 g/dL (3.5-5.1); Alkaline Phosphatase 89 U/L (38-126); Anion Gap 7 mmol/L (4-12); Aspartate Amino Transferase 16 U/L (14-36); Bilirubin,Total 0.6 mg/dL (0.2-1.3); Blood Urea Nitrogen 19 mg/dL (7-17); Calcium 8.7 mg/dL (8.4-10.2); Carbon Dioxide 28 mmol/L (22-30); Chloride 99 mmol/L (98-107); Estimated CRCL calculation 84 ml/min; Estimated Glomerular Filt Rate > 60; Glucose 139 mg/dL (65-110); Potassium 4.1 mmol/L (3.4-5.0); Sodium 134 mmol/L (137-145)
--- NOTE | 2024-12-14 04:45 | PC.NURSE ---
ok to not draw blood cultures per edp.
--- NOTE | 2024-12-14 07:17 | P.HP_ITS ---
H&P: HPI History of Present Illness Date/Time: 12/14/24 07:17 Chief Complaint: Extremity Injury, Lower Narrative: 64-year-old female with a past medical history included morbid obesity, diabetes type 2, COPD, coronary disease, atrial fibrillation status post cardioversion currently on Eliquis therapy. Today she presents to the emergency room with chief complaint of frequent falls and generalized weakness for last few days. She states that she is unable to ambulate secondary to her morbid obesity and feels weaker than normal. She has fallen several times these last few days to weeks and injured herself by having various bruises to her legs. She states that she does have some diabetic neuropathy but is able to feel her legs and feel the ground. Normally ambulates with the assistance of electric wheelchair. Did not strike her head or lose consciousness during any of the falls but does take Eliquis. Denies any chest pain, abdominal pain, back pain. She thinks she might have a urinary tract infection as she has had previous falls from that. She resides at home and has a family member help take care of her. Pertinent ED labs: WBC 12.3, hemoglobin 15.3, hematocrit 48.1, platelet 308, sodium 134, potassium 4.1, creatinine 0.9 UA: Leukocyte esterase positive, nitrites negative, WBC 11-20. Imaging: Pelvic x-ray: No significant abnormality Knee x-ray right knee: Severe tricompartmental osteoarthritis. 2.8 cm loose body Knee x-ray left knee:Severe tricompartmental osteoarthritis.No acute fracture or dislocation seen. Head CT: No abnormality seen The patient was evaluated at the bedside. The patient reports she is using the wheelchair for the past 4-5 years. When asked about the reason for using the wheelchair, the patient reported she had necrotic fasciitis on her right groin about 4-5 years , and she was in a coma for almost 3 months. Due to no physical activity or exercise, her legs could not regain strength. The patient has diabetes and managed with insulin. Remote history of stent placement. The patient also endorsed the removal of the uterus due to cancer. Current hospitalization is due to ground-level fall. The patient reported she slipped and fell due to the towel on the floor, she recovered from the fall but unfortunately fell again in the bathroom within a few minutes and called EMS. The patient denies any loss of consciousness or trauma to the head. There is no evidence of seizures. EKG was reviewed and shows sinus rhythm. Patient denies any chest pain or palpitation or shortness of breath. Probably the fall is due to mechanical. No evidence of arrhythmias, hypoglycemia, orthostatic hypertension. Review of Systems Review of Systems: As reviewed above in [facility] Past Medical History Medical History Restless leg syndrome Neuropathy Asthma Heart failure Anxiety and depression Suicide attempt x3, last attempt in 1989' Bipolar disorder Arthritis HLD (hyperlipidemia) Migraine COPD (chronic obstructive pulmonary disease) Hypertension Atrial fibrillation with RVR Tobacco abuse Degenerative joint disease of knee Diabetes mellitus with hyperglycemia Morbid obesity with BMI of 60.0-69.9, adult Cellulitis of groin necrotizing fasciitis Frequent falls MINA (acute kidney injury) Cellulitis 2006 Surgical History Surgical History 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 History of cholecystectomy History of heart artery stent Family History Family History Father Acute myocardial infarction Hypertension Grandparent Chronic obstructive pulmonary disease Diabetes mellitus Mother Congestive heart failure Diabetes mellitus Hypertension Other Leukemia Social History Social History Smoking packs per day: 2 Smoking cigarettes per day: 40.0 Years smoked: 47 Smoking pack-years: 94.00 Smoking status: Current every day smoker Tobacco type: cigarettes Second hand tobacco smoke exposure: Yes Alcohol intake: current Drinks per week: 1 Substance use: current Substance use type: marijuana Other substance usage details: alcohol couple times/year, currently uses CBD gummies and smokes marijuana Do You Feel Safe in your Home?: Yes Lack of Transportation: No Lack of Food: Never True Current Housing: I Have Housing Concerned About Future Housing: No Difficulty Paying Gas/Electric Bills: YES Difficulty Paying for Meds: No Currently Unemployed: No Education: Don't Know Difficulty w/ Childcare or Family Care: No Spiritual care concerns: No Meds Home Medications and Allergies Home Medications ?Medication ?Instructions ?Recorded ?Confirmed ?Type atorvastatin 40 mg tablet 40 mg PO HS 08/09/23 12/14/24 History citalopram 40 mg tablet 40 mg PO DAILY 08/09/23 12/14/24 History famotidine 40 mg tablet 40 mg PO DAILY 08/09/23 12/14/24 History gabapentin 800 mg tablet 800 mg PO TID 08/09/23 12/14/24 History lisinopril 30 mg tablet 30 mg PO DAILY 08/09/23 12/14/24 History nortriptyline 25 mg capsule 25 mg PO TID 08/09/23 12/14/24 History oxybutynin chloride 5 mg tablet 5 mg PO HS 08/09/23 12/14/24 History primidone 250 mg tablet 250 mg PO BID 08/09/23 12/14/24 History ropinirole 3 mg tablet 3 mg PO HS 08/09/23 12/14/24 History insulin glargine 100 unit/mL (3 42 unit subcut QAM 12/15/23 12/14/24 History mL) subcutaneous pen (Basaglar KwikPen U-100 Insulin) insulin glargine 100 unit/mL (3 46 unit subcut QHS 12/15/23 12/14/24 History mL) subcutaneous pen (Basaglar KwikPen U-100 Insulin) metformin 500 mg tablet 500 mg PO BID 12/15/23 12/14/24 History tolnaftate 1 % topical powder 1 applic topical Q12HR PRN Rash 12/15/23 12/14/24 History apixaban 5 mg tablet (Eliquis) 5 mg PO Q12HR #6 tabs 12/19/23 12/14/24 Rx metoprolol tartrate 50 mg tablet 50 mg PO Q12HR #60 tabs 12/19/23 12/14/24 Rx budesonide-formoterol HFA 160 1 inh inhalation DAILY PRN 03/10/24 12/14/24 History mcg-4.5 mcg/actuation aerosol Shortness Of Breath inhaler (Symbicort) docusate sodium 100 mg capsule 100 mg PO PRN PRN Constipation 03/10/24 12/14/24 History dulaglutide 3 mg/0.5 mL 3 mg (0.5 mL) subcut WEEKLY #6 mL 09/30/24 12/14/24 Rx subcutaneous pen injector ([facility]) meloxicam 15 mg tablet 15 mg PO DAILY 09/30/24 12/14/24 History blood-glucose meter,continuous #1 ea 10/07/24 12/14/24 Rx (FreeStyle Fredi 3 [place]) blood-glucose sensor (FreeStyle #2 ea 10/07/24 12/14/24 Rx Fredi 3 Plus Sensor device) Allergies Allergy/AdvReac Type Severity Reaction Status Date / Time morphine Allergy Severe Swelling Verified 09/30/24 13:53 of Lip/Tongue/Throat Vital Signs Vital Signs - 24 hr 12/13/24 23:00 12/14/24 03:57 12/14/24 04:00 Temperature 98.7 F Pulse Rate 80 75 74 Respiratory Rate 20 18 19 Blood Pressure 102/70 Pulse Oximetry 98 95 Oxygen Delivery Room Air 12/14/24 04:47 12/14/24 04:48 12/14/24 05:00 Temperature Pulse Rate 77 81 73 Respiratory Rate 16 18 17 Blood Pressure 132/87 Pulse Oximetry 100 Oxygen Delivery 12/14/24 05:01 12/14/24 05:15 12/14/24 05:17 Temperature Pulse Rate 74 75 78 Respiratory Rate 17 16 20 Blood Pressure 93/81 L 133/90 Pulse Oximetry Oxygen Delivery 12/14/24 05:30 12/14/24 05:31 12/14/24 05:45 Temperature Pulse Rate 80 80 80 Respiratory Rate 16 15 16 Blood Pressure 154/77 H Pulse Oximetry Oxygen Delivery 12/14/24 05:46 12/14/24 06:00 12/14/24 06:01 Temperature Pulse Rate 78 78 80 Respiratory Rate 16 14 16 Blood Pressure 152/75 H 170/86 H Pulse Oximetry Oxygen Delivery 12/14/24 06:15 12/14/24 06:16 12/14/24 06:30 Temperature Pulse Rate 76 77 79 Respiratory Rate 16 17 15 Blood Pressure 168/85 H Pulse Oximetry Oxygen Delivery 12/14/24 06:31 12/14/24 06:45 12/14/24 06:46 Temperature Pulse Rate 79 79 80 Respiratory Rate 16 19 18 Blood Pressure 153/70 H 132/74 Pulse Oximetry 99 99 Oxygen Delivery 12/14/24 06:57 Temperature Pulse Rate 80 Respiratory Rate 18 Blood Pressure 132/74 Pulse Oximetry 99 Oxygen Delivery Exam Narrative: GENERAL: Morbidly obese, not in any acute distress, answering all questions appropriately HEAD: [Normocephalic, atraumatic.] EYES: [PERRLA and EOMI.] ENT: Nares clear, no rhinorrhea or epistaxis. Mucous membranes moist. NECK: Supple. CHEST: [Clear to auscultation. No respiratory distress.] HEART: [Regular rate and rhythm]. No murmur heard. [Normal peripheral pulses.] 2+ dorsalis pedis pulse, warm extremities with 2+ cap refill in both feet and hands ABDOMEN: [Soft, nondistended], [nontender], [No rigidity or guarding] EXTREMITIES: Large extremities with limited range of motion secondary to obesity, bruising noted over the lateral aspect of the right knee, passive range of motion is full. Plantar dorsiflexion of the ankle is 5/5 with good strength. No traumatic evidence on her upper extremities or chest/Abdo SKIN: Discoloration to the bilateral feet with chronic appearing venous stasis dermatitis to the bilateral shins and up to the knees. NEURO: [No focal deficits]. Alert and oriented [x3.] PSYCH: [Normal mood and affect.] H&P: Results Labs Labs: Short CBC 12/14/24 Range/Units 04:05 WBC 12.3 H (4.5-10.0) K/mm3 Hgb 15.3 H (12.0-15.0) g/dL Hct 48.1 H (37.0-47.0) % Plt Count 308 (150-375) k/mm3 BMP 12/14/24 04:05 Sodium 134 L Potassium 4.1 Chloride 99 Carbon Dioxide 28 BUN 19 H Creatinine 0.90 Glucose 139 H Calcium 8.7 Liver Function 12/14/24 Range/Units 04:05 Total Bilirubin 0.6 (0.2-1.3) mg/dL AST 16 (14-36) U/L ALT 13 (6-35) U/L Alkaline Phosphatase 89 (38-126) U/L Albumin 3.8 (3.5-5.1) g/dL Urine 12/14/24 Range/Units 04:05 Urine Color Yellow (Yellow) Urine Appearance Clear (Clear) Urine pH 5.5 (5.0-9.0) Ur Specific [place] 1.018 (1.001-1.035) Urine Protein Trace (Negative) mg/dL Urine Glucose (UA) 2+ H (Negative) mg/dL Assessment and Plan Assessment and plan (1) At high risk for falls: Code(s): Z91.81 - History of falling Status: Acute (2) Hypertension: Code(s): I10 - Essential (primary) hypertension Status: Acute (3) Atrial tachycardia: Code(s): I47.19 - Other supraventricular tachycardia Status: Acute (4) T2DM (type 2 diabetes mellitus): Code(s): E11.9 - Type 2 diabetes mellitus without complications Status: Acute (5) Morbid obesity: Code(s): E66.01 - Morbid (severe) obesity due to excess calories Status: Acute (6) UTI (urinary tract infection): Code(s): N39.0 - Urinary tract infection, site not specified Status: Acute Plan UTI -Started Ceftriaxone -UA reviewed -urine culture pending -monitor vital signs Fall -medications were reviewed -evaluate for incidence of hypoglycemia -avoid any sedatives or anxiolytic -will evaluate for any arrhythmias -we evaluate for postural hypertension -labs were reviewed including vitamin-D level -head CT scan reviewed -physical therapy for balance, gait and strength training -get up and go test DM -Continue home dose -hypoglycemic protocol -initiated sliding scale Hospitalist MIPS Advance Care Plan I have confirmed that the patient's Advanced Care Plan is present, code status is documented, or surrogate decision maker is listed in patient medical record.: Yes Medication Reconciliation I have utilized all available resources to obtain, update and review the patients current medications (includes all prescriptions, OTC, herbals, cannabis, and nutritional supplements).: Yes
[2024-12-14 08:26] LABS: Glucose Point of Care 162 mg/dl (65-105)
--- NOTE | 2024-12-14 11:18 | ADMGEN ---
This patient, Juliann Moody, was admitted to [facility] Surg Room 305-02. Patient/family oriented to hospital policies and general routines including ID bracelet, bed and alarms, visiting hours, pain management, procedures, bathroom and other care routines, personal items, smoking policy, room service/diet, and visiting hours. Information on how to activate the Rapid Response Team has been discussed. Patient/Family are encouraged to report perceived risks to care and to ask questions if they do not understand what they are told or what they should do. Sarina bull RN got report from ER nurse. pt arrived at 0725.
[2024-12-14 11:48] LABS: Glucose Point of Care 191 mg/dl (65-105)
[2024-12-14] MEDS: HYDROcodone/acetaminophen (*CRX) 5-325 MG TABLET 1 TAB PO ×2 (12:17→18:03)
--- NOTE | 2024-12-14 13:29 | PC.NURSE ---
Pt returned from CT
[2024-12-14] MEDS: GABAPENTIN 400 MG CAPSULE 800 MG PO ×2 (14:02→21:06)
[2024-12-14] MEDS: NORTRIPTYLINE HCL 25 MG CAPSULE PO ×2 (14:02→21:06)
[2024-12-14 16:55] LABS: Glucose Point of Care 131 mg/dl (65-105)
[2024-12-14] MEDS: cefTRIAXone 2 GM/NS 100 ML 2 GM/100 ML BAG IVPB (17:00)
[2024-12-14] MEDS: PRIMIDONE 250 MG TABLET PO (17:01)
--- NOTE | 2024-12-14 18:33 | ADMGEN ---
This patient, Juliann Moody, was admitted to [address] [place] [address] Room 305-02 at 0725. Patient/family oriented to hospital policies and general routines including ID bracelet, bed and alarms, visiting hours, pain management, procedures, bathroom and other care routines, personal items, smoking policy, room service/diet, and visiting hours. Information on how to activate the Rapid Response Team has been discussed. Patient/Family are encouraged to report perceived risks to care and to ask questions if they do not understand what they are told or what they should do.
[2024-12-14] MEDS: METOPROLOL TARTRATE 50 MG TAB PO (21:06)
[2024-12-14] MEDS: oxyBUTYnin CHLORIDE 5 MG TABLET PO (21:06)
[2024-12-14] MEDS: ATORVASTATIN 40 MG TABLET PO (21:06)
[2024-12-14] MEDS: APIXABAN 5 MG TABLET PO (21:06)
[2024-12-14] MEDS: rOPINIRole HCL 1 MG TABLET 3 MG PO (21:06)
[2024-12-14] MEDS: INSULIN GLARGINE (*BKC) 100 UNITS/ML 46 UNITS SUB-Q (21:07)
[2024-12-14 21:17] LABS: Glucose Point of Care 224 mg/dl (65-105)
[2024-12-14] MEDS: [UNRECOGNIZED DRUG - REMARK] 1 EACH XX (21:49)
[2024-12-15 05:30] VITALS: BP 127/60; PULSE 59; RESP 18; TEMP 36.5; O2SAT 98
[2024-12-15 08:27] LABS: Basophils Percent Auto 0.4 % (0.2-1.2); Eosinophils Absolute Auto 0.2 K/mm3 (0-0.3); Eosinophils Percent Auto 2.2 % (0-4.4); Hematocrit 47.9 % (37.0-47.0); Hemoglobin 15.1 g/dL (12.0-15.0); Immature Granulocyte Absolute 0.04 K/mm3 (0.00-0.031); Immature Granulocyte Percent A 0.4 % (0-0.5); Lymphocytes Absolute Auto 3.05 K/mm3 (0.9-3.2); Lymphocytes Percent Auto 33.4 % (18.3-44.2); Mean Corpuscular HGB Conc 31.5 g/dl (32-36); Mean Corpuscular Volume 91.9 fl (80-100); Mean Platelet Volume 9.3 fl (7.4-10.4); Monocytes Absolute Auto 0.6 K/mm3 (0.1-0.6); Neutrophils Absolute Auto 5.2 K/mm3 (1.3-6.7); Neutrophils Percent Auto 56.6 % (45.5-73.1); Platelet Count Result 275 k/mm3 (150-375); Red Blood Count 5.21 M/mm3 (4.2-5.4); Red Cell Distribution Width 14.6 % (11.5-14.5); White Blood Count 9.1 K/mm3 (4.5-10.0)
[2024-12-15 08:40] LABS: Glucose Point of Care 105 mg/dl (65-105)
[2024-12-15 08:46] LABS: Alanine Aminotransferase 14 U/L (6-35); Albumin Level 3.4 g/dL (3.5-5.1); Alkaline Phosphatase 77 U/L (38-126); Anion Gap 5 mmol/L (4-12); Aspartate Amino Transferase 16 U/L (14-36); Bilirubin,Total 0.5 mg/dL (0.2-1.3); Blood Urea Nitrogen 17 mg/dL (7-17); Calcium 8.6 mg/dL (8.4-10.2); Carbon Dioxide 29 mmol/L (22-30); Chloride 103 mmol/L (98-107); Estimated CRCL calculation 106 ml/min; Estimated Glomerular Filt Rate > 60; Glucose 99 mg/dL (65-110); Magnesium 2.2 mg/dL (1.6-2.3); Potassium 4.7 mmol/L (3.4-5.0); Sodium 137 mmol/L (137-145); Uric Acid 5.4 mg/dL (2.5-7.5)
[2024-12-15] MEDS: INSULIN GLARGINE (*BKC) 100 UNITS/ML 42 UNITS SUB-Q (09:59)
[2024-12-15] MEDS: HYDROcodone/acetaminophen (*CRX) 5-325 MG TABLET 1 TAB PO ×2 (10:01→18:00)
[2024-12-15 10:02] VITALS: PULSE 60
[2024-12-15] MEDS: FAMOTIDINE 20 MG TABLET 40 MG PO (10:02)
[2024-12-15] MEDS: METOPROLOL TARTRATE 50 MG TAB PO ×2 (10:02→21:19)
[2024-12-15] MEDS: MELOXICAM 7.5 MG TABLET 15 MG PO (10:02)
[2024-12-15] MEDS: APIXABAN 5 MG TABLET PO (10:03)
[2024-12-15] MEDS: CITALOPRAM HYDROBROMIDE 20 MG TABLET 40 MG PO (10:03)
[2024-12-15] MEDS: PRIMIDONE 250 MG TABLET PO ×2 (10:03→18:02)
[2024-12-15] MEDS: lisinopriL 10 MG TABLET 30 MG PO (10:03)
[2024-12-15] MEDS: NORTRIPTYLINE HCL 25 MG CAPSULE PO ×3 (10:42→21:21)
[2024-12-15] MEDS: GABAPENTIN 400 MG CAPSULE 800 MG PO ×3 (10:42→21:21)
[2024-12-15 12:08] LABS: Glucose Point of Care 132 mg/dl (65-105)
[2024-12-15 14:00] VITALS: BP 128/56; PULSE 62; RESP 16; TEMP 35.9; O2SAT 95
--- NOTE | 2024-12-15 14:41 | PCPTNOTE ---
On 12/15/24, the student, WILTON Solo, provided care and completed [facility] documentation on this patient. I have reviewed the student's documentation and agree with the findings.
--- NOTE | 2024-12-15 15:21 | PM.IMPN ---
Progress Note: A&P Assessment and Plan (1) At high risk for falls: Code(s): Z91.81 - History of falling Status: Acute (2) Hypertension: Code(s): I10 - Essential (primary) hypertension Status: Acute (3) Atrial tachycardia: Code(s): I47.19 - Other supraventricular tachycardia Status: Acute (4) T2DM (type 2 diabetes mellitus): Code(s): E11.9 - Type 2 diabetes mellitus without complications Status: Acute (5) Morbid obesity: Code(s): E66.01 - Morbid (severe) obesity due to excess calories Status: Acute (6) UTI (urinary tract infection): Code(s): N39.0 - Urinary tract infection, site not specified Status: Acute Plan DVT Bilateral femoral vein deep venous thrombosis. Started Apixaban 10 mg PO BID x 7 days Then continue Apixaban 5 mg PO BID Order CTA to r/o PE UTI -Started Ceftriaxone -UA reviewed -urine culture pending -monitor vital signs Fall -medications were reviewed -evaluate for incidence of hypoglycemia -avoid any sedatives or anxiolytic -will evaluate for any arrhythmias -we evaluate for postural hypertension -labs were reviewed including vitamin-D level -head CT scan reviewed -physical therapy for balance, gait and strength training -get up and go test DM -Continue home dose -hypoglycemic protocol -initiated sliding scale Subjective Date/time seen: 12/15/24 15:21 Interval history: Patient was evaluated the bedside. Denies any complaints except for left leg pain. Ordered ultrasound lower extremity to rule out DVT whic shows BL DVT. Started Apixaban and order CTA to r/o PE. Continue PT OT. Review of Systems Review of Systems: As reviewed above in HPI Exam Narrative: GENERAL: Morbidly obese, not in any acute distress, answering all questions appropriately HEAD: [Normocephalic, atraumatic.] EYES: [PERRLA and EOMI.] ENT: Nares clear, no rhinorrhea or epistaxis. Mucous membranes moist. NECK: Supple. CHEST: [Clear to auscultation. No respiratory distress.] HEART: [Regular rate and rhythm]. No murmur heard. [Normal peripheral pulses.] 2+ dorsalis pedis pulse, warm extremities with 2+ cap refill in both feet and hands ABDOMEN: [Soft, nondistended], [nontender], [No rigidity or guarding] EXTREMITIES: Large extremities with limited range of motion secondary to obesity, bruising noted over the lateral aspect of the right knee, passive range of motion is full. Plantar dorsiflexion of the ankle is 5/5 with good strength. No traumatic evidence on her upper extremities or chest/Abdo SKIN: Discoloration to the bilateral feet with chronic appearing venous stasis dermatitis to the bilateral shins and up to the knees. NEURO: [No focal deficits]. Alert and oriented [x3.] PSYCH: [Normal mood and affect.] Objective Data Vital Signs Vital Signs: Vital Signs - 24 hr 12/14/24 20:00 12/14/24 20:42 12/15/24 05:30 Temperature 97.5 F L 97.7 F Pulse Rate 71 71 59 L Respiratory Rate 16 16 18 Blood Pressure 131/64 127/60 Pulse Oximetry 95 95 98 Oxygen Delivery Room Air 12/15/24 10:02 12/15/24 14:00 Temperature 96.7 F L Pulse Rate 60 62 Respiratory Rate 16 Blood Pressure 128/56 L Pulse Oximetry 95 Oxygen Delivery Intake/Output Intake/Output: Intake & Output 12/12/24 12/13/24 12/14/24 12/15/24 23:59 23:59 23:59 23:59 Intake Total 870 1080 Output Total 300 1375 Balance 570 -295 Meds/Results Medications: Active Medications Generic Name Dose Route Start Last Admin Trade Name Freq PRN Reason Stop Dose Admin Acetaminophen 650 mg 12/14/24 06:23 Acetaminophen 325 Mg Tablet PO Q4H PRN Mild Pain (1-3) or Fever Hydrocodone Bitart/Acetaminophen 1 tab 12/14/24 12:09 12/15/24 10:01 Hydrocodone/Acetaminophen (*Crx) 5-325 Mg Tablet PO 1 tab Q6H PRN Administration Pain Rated 4-6 Apixaban 5 mg 12/14/24 21:00 12/15/24 10:03 Apixaban 5 Mg Tablet PO 5 mg Q12HR FAHAD Administration Atorvastatin Calcium 40 mg 12/14/24 21:00 12/14/24 21:06 Atorvastatin 40 Mg Tablet PO 40 mg HS FAHAD Administration Citalopram Hydrobromide 40 mg 12/15/24 09:00 12/15/24 10:03 Citalopram Hydrobromide 20 Mg Tablet PO 40 mg DAILY FAHAD Administration Docusate Sodium 100 mg 12/14/24 12:16 Docusate Sodium 100 Mg Capsule PO BID PRN Constipation Famotidine 40 mg 12/15/24 09:00 12/15/24 10:02 Famotidine 20 Mg Tablet PO 40 mg DAILY FAHAD Administration Gabapentin 800 mg 12/14/24 14:00 12/15/24 14:33 Gabapentin 400 Mg Capsule PO 800 mg 0900,1400,2100 FAHAD Administration Ceftriaxone Sodium 2 gm in 100 mls @ 200 mls/hr 12/14/24 17:00 12/14/24 17:30 Rocephin 2 Gm/Ns 100 Ml IVPB Infused Q24H FAHAD Infusion Insulin Glargine 46 units 12/14/24 21:00 12/14/24 21:07 Insulin Glargine (*Bkc) 100 Units/Ml SUB-Q 46 units QHS FAHAD Administration Insulin Glargine 42 units 12/15/24 09:00 12/15/24 09:59 Insulin Glargine (*Bkc) 100 Units/Ml SUB-Q 42 units QAM FAHAD Administration Lisinopril 30 mg 12/15/24 09:00 12/15/24 10:03 Lisinopril 10 Mg Tablet PO 30 mg DAILY FAHAD Administration Meloxicam 15 mg 12/15/24 09:00 12/15/24 10:02 Meloxicam 7.5 Mg Tablet PO 15 mg DAILY FAHAD Administration Metoprolol Tartrate 50 mg 12/14/24 21:00 12/15/24 10:02 Metoprolol Tartrate 50 Mg Tab PO 50 mg Q12HR FAHAD Administration Nortriptyline HCl 25 mg 12/14/24 14:00 12/15/24 14:34 Nortriptyline Hcl 25 Mg Capsule PO 25 mg 0900,1400,2100 [facility] Administration Ondansetron HCl 4 mg 12/14/24 06:23 Ondansetron Inj 4 Mg/2 Ml Vial IV PUSH Q4H PRN Nausea Oxybutynin Chloride 5 mg 12/14/24 21:00 12/14/24 21:06 Oxybutynin Chloride 5 Mg Tablet PO 5 mg HS FAHAD Administration Primidone 250 mg 12/14/24 17:00 12/15/24 10:03 Primidone 250 Mg Tablet PO 250 mg BID FAHAD Administration Ropinirole HCl 3 mg 12/14/24 21:00 12/14/24 21:06 Ropinirole Hcl 1 Mg Tablet PO 3 mg HS FAHAD Administration Fluticasone/Salmeterol 2 puff 12/14/24 12:33 Fluticasone/Salmeterol 115-21 Mcg Inhaler 1 Puff INHALATION Q12HRT PRN Shortness Of Breath Radiology Results: ITS Impressions Head CT 12/14/24 05:38 Impression: No significant abnormality seen. Knee X-Ray 12/14/24 06:03 Impression: Severe tricompartmental osteoarthritis. 2.8 cm loose body, as above. Pelvis X-Ray 12/14/24 06:11 Impression: No significant abnormality is seen. Cervical Spine CT 12/14/24 13:45 IMPRESSION: 1. Severe cervical spondylosis. No acute osseous abnormality. Thoracic/Lumbar Spine CT 12/14/24 16:24 IMPRESSION: 1. No fracture. 2. Mild thoracic and lumbar spondylosis. Labs Labs: Laboratory Results - last 24 hr 12/14/24 12/14/24 12/15/24 16:51 20:19 08:04 WBC 9.1 RBC 5.21 Hgb 15.1 H Hct 47.9 H MCV 91.9 MCH 29.0 MCHC 31.5 L RDW 14.6 H Plt Count 275 MPV 9.3 Immature Gran % (Auto) 0.4 Neut % (Auto) 56.6 Lymph % (Auto) 33.4 [place] % (Auto) 7.0 Eos % (Auto) 2.2 Baso % (Auto) 0.4 Lymph # (Auto) 3.05 [place] # (Auto) 0.6 Eos # (Auto) 0.2 Baso # (Auto) 0.0 Abs Immat Gran (auto) 0.04 H Absolute Neuts (auto) 5.2 Absolute Nucleated RBC 0.000 Nucleated RBC % 0.0 Sodium 137 Potassium 4.7 Chloride 103 Carbon Dioxide 29 Anion Gap 5 BUN 17 Creatinine 0.70 Estim Creat Clear Calc 106 Estimated GFR > 60 Glucose 99 POC Capillary Glucose 131 H 224 H Uric Acid 5.4 Calcium 8.6 Phosphorus 4.0 Magnesium 2.2 Total Bilirubin 0.5 AST 16 ALT 14 Alkaline Phosphatase 77 Total Protein 7.0 Albumin 3.4 L 12/15/24 12/15/24 08:37 12:00 WBC RBC Hgb Hct MCV MCH MCHC RDW Plt Count MPV Immature Gran % (Auto) Neut % (Auto) Lymph % (Auto) [place] % (Auto) Eos % (Auto) Baso % (Auto) Lymph # (Auto) [place] # (Auto) Eos # (Auto) Baso # (Auto) Abs Immat Gran (auto) Absolute Neuts (auto) Absolute Nucleated RBC Nucleated RBC % Sodium Potassium Chloride Carbon Dioxide Anion Gap BUN Creatinine Estim Creat Clear Calc Estimated GFR Glucose POC Capillary Glucose 105 132 H Uric Acid Calcium Phosphorus Magnesium Total Bilirubin AST ALT Alkaline Phosphatase Total Protein Albumin Hospitalist MIPS Advance Care Plan I have confirmed that the patient's Advanced Care Plan is present, code status is documented, or surrogate decision maker is listed in patient medical record.: Yes Medication Reconciliation I have utilized all available resources to obtain, update and review the patients current medications (includes all prescriptions, OTC, herbals, cannabis, and nutritional supplements).: Yes
[2024-12-15 16:53] LABS: Glucose Point of Care 130 mg/dl (65-105)
[2024-12-15] MEDS: cefTRIAXone 2 GM/NS 100 ML 2 GM/100 ML BAG IVPB (18:01)
[2024-12-15 21:19] VITALS: PULSE 65
[2024-12-15] MEDS: rOPINIRole HCL 1 MG TABLET 3 MG PO (21:19)
[2024-12-15] MEDS: ATORVASTATIN 40 MG TABLET PO (21:19)
[2024-12-15] MEDS: oxyBUTYnin CHLORIDE 5 MG TABLET PO (21:19)
[2024-12-15 21:20] VITALS: BP 135/79; PULSE 64; RESP 16; TEMP 36.6; O2SAT 96
[2024-12-15] MEDS: ACETAMINOPHEN 325 MG TABLET 650 MG PO (21:23)
[2024-12-15] MEDS: INSULIN GLARGINE (*BKC) 100 UNITS/ML 46 UNITS SUB-Q (21:33)
[2024-12-15 21:50] LABS: Glucose Point of Care 119 mg/dl (65-105)
[2024-12-16 05:50] VITALS: BP 146/66; PULSE 51; RESP 16; TEMP 36.7; O2SAT 98
[2024-12-16 07:14] LABS: Hematocrit 48.7 % (37.0-47.0); Hemoglobin 15.1 g/dL (12.0-15.0); Mean Corpuscular Hemoglobin 28.7 pg (26-34); Mean Corpuscular Volume 92.6 fl (80-100); Mean Platelet Volume 9.5 fl (7.4-10.4); Platelet Count Result 252 k/mm3 (150-375); Red Blood Count 5.26 M/mm3 (4.2-5.4); Red Cell Distribution Width 14.6 % (11.5-14.5); White Blood Count 8.9 K/mm3 (4.5-10.0)
[2024-12-16 07:50] LABS: Alanine Aminotransferase 13 U/L (6-35); Albumin Level 3.3 g/dL (3.5-5.1); Alkaline Phosphatase 70 U/L (38-126); Anion Gap 8 mmol/L (4-12); Aspartate Amino Transferase 18 U/L (14-36); Bilirubin,Total 0.5 mg/dL (0.2-1.3); Blood Urea Nitrogen 20 mg/dL (7-17); Calcium 8.6 mg/dL (8.4-10.2); Carbon Dioxide 24 mmol/L (22-30); Chloride 105 mmol/L (98-107); Estimated CRCL calculation 91 ml/min; Estimated Glomerular Filt Rate > 60; Glucose 59 mg/dL (65-110); Potassium 4.6 mmol/L (3.4-5.0); Sodium 137 mmol/L (137-145)
--- NOTE | 2024-12-16 08:00 | PC.NURSE ---
critical glucose of 59 reported from lab at 0750 on 12/16/24. Dr. Shine notified at 0800. Provider to put in orders.
[2024-12-16] MEDS: GABAPENTIN 400 MG CAPSULE 800 MG PO ×2 (08:08→14:40)
[2024-12-16] MEDS: RIVAROXABAN 15 MG TABLET PO ×2 (08:08→17:42)
[2024-12-16 08:09] VITALS: PULSE 66
[2024-12-16] MEDS: lisinopriL 10 MG TABLET 30 MG PO (08:09)
[2024-12-16] MEDS: METOPROLOL TARTRATE 50 MG TAB PO (08:09)
[2024-12-16] MEDS: NORTRIPTYLINE HCL 25 MG CAPSULE PO ×2 (08:09→14:40)
[2024-12-16] MEDS: PRIMIDONE 250 MG TABLET PO ×2 (08:10→17:42)
[2024-12-16] MEDS: FAMOTIDINE 20 MG TABLET 40 MG PO (08:10)
[2024-12-16] MEDS: CITALOPRAM HYDROBROMIDE 20 MG TABLET 40 MG PO (08:10)
[2024-12-16] MEDS: MELOXICAM 7.5 MG TABLET 15 MG PO (08:10)
[2024-12-16] MEDS: HYDROcodone/acetaminophen (*CRX) 5-325 MG TABLET 1 TAB PO (08:15)
[2024-12-16 08:27] LABS: Glucose Point of Care 90 mg/dl (65-105)
[2024-12-16 08:38] VITALS: O2SAT 95
[2024-12-16 11:31] LABS: Glucose Point of Care 201 mg/dl (65-105)
--- NOTE | 2024-12-16 12:40 | PCOTNOTE ---
Patient refused to participate in therapy session. Patient verbalized, she is leaving to go home today .
--- NOTE | 2024-12-16 13:55 | P.DS_ITS ---
DS: Admitting Diagnosis Discharge Date 12/16/2024 Admitting Diagnosis Fall DS: Discharge Diagnosis Discharge Diagnosis (1) At high risk for falls: Code(s): Z91.81 - History of falling Status: Acute (2) Hypertension: Code(s): I10 - Essential (primary) hypertension Status: Acute (3) Atrial tachycardia: Code(s): I47.19 - Other supraventricular tachycardia Status: Acute (4) T2DM (type 2 diabetes mellitus): Code(s): E11.9 - Type 2 diabetes mellitus without complications Status: Acute (5) Morbid obesity: Code(s): E66.01 - Morbid (severe) obesity due to excess calories Status: Acute (6) UTI (urinary tract infection): Code(s): N39.0 - Urinary tract infection, site not specified Status: Acute Plan 64-year-old female with a past medical history included morbid obesity, diabetes type 2, COPD, coronary disease, atrial fibrillation status post cardioversion currently on Eliquis therapy. Today she presents to the emergency room with chief complaint of frequent falls and generalized weakness for last few days. She states that she is unable to ambulate secondary to her morbid obesity and feels weaker than normal. She has fallen several times these last few days to weeks and injured herself by having various bruises to her legs. She states that she does have some diabetic neuropathy but is able to feel her legs and feel the ground. Normally ambulates with the assistance of electric wheelchair. Did not strike her head or lose consciousness during any of the falls but does take Eliquis. Denies any chest pain, abdominal pain, back pain. She thinks she might have a urinary tract infection as she has had previous falls from that. She resides at home and has a family member help take care of her. Pertinent ED labs: WBC 12.3, hemoglobin 15.3, hematocrit 48.1, platelet 308, sodium 134, potassium 4.1, creatinine 0.9 UA: Leukocyte esterase positive, nitrites negative, WBC 11-20. Imaging: Pelvic x-ray: No significant abnormality Knee x-ray right knee: Severe tricompartmental osteoarthritis. 2.8 cm loose body Knee x-ray left knee:Severe tricompartmental osteoarthritis.No acute fracture or dislocation seen. Head CT: No abnormality seen The patient was evaluated at the bedside. The patient reports she is using the wheelchair for the past 4-5 years. When asked about the reason for using the wheelchair, the patient reported she had necrotic fasciitis on her right groin about 4-5 years , and she was in a coma for almost 3 months. Due to no physical activity or exercise, her legs could not regain strength. The patient has diabetes and managed with insulin. Remote history of stent placement. The patient also endorsed the removal of the uterus due to cancer. Current hospitalization is due to ground-level fall. The patient reported she slipped and fell due to the towel on the floor, she recovered from the fall but unfortunately fell again in the bathroom within a few minutes and called EMS. The patient denies any loss of consciousness or trauma to the head. There is no evidence of seizures. EKG was reviewed and shows sinus rhythm. Patient denies any chest pain or palpitation or shortness of breath. Probably the fall is due to mechanical. No evidence of arrhythmias, hypoglycemia, orthostatic hypertension. Patient was diagnosed with bilateral lower ext extremity DVT.I spoke with radiologist ,who is not able to verify whether the BL DVT is acute vs chronic due to poor images. US LE on 08/15/2023 shows no DVT. Patient reports she is taking Eliquis daily one time ,although her home medication regimen shows 2 times a day.Not able to verify whether its medication non compliance vs AC failure. For now will start loading dose Xarelto 15 mg PO BID x 21 days and then 20mg PO QD. Will dc Eliquis. Patient is discharged with the following advice: Patient needs to take Xarelto 15 mg PO BID until 01/05/2025 and the from 01/06 patient needs to take Xarelto 20 mg PO QD for 3 to 6 months. Please discuss with your PCP or Heme-Oncologist and decide the continuation of blood thinner. Please visit Heme-Oncologist if possible with Please visit Vascular surgeon to evaluate the need for IVC. In the event any bleeding episode please immediate medical care. Please take Meloxicam only if needed DS: Summary Hospital Course Hospital Course: 64-year-old female with a past medical history included morbid obesity, diabetes type 2, COPD, coronary disease, atrial fibrillation status post cardioversion currently on Eliquis therapy. Today she presents to the emergency room with chief complaint of frequent falls and generalized weakness for last few days. She states that she is unable to ambulate secondary to her morbid obesity and feels weaker than normal. She has fallen several times these last few days to weeks and injured herself by having various bruises to her legs. She states that she does have some diabetic neuropathy but is able to feel her legs and fe el the ground. Normally ambulates with the assistance of electric wheelchair. Did not strike her head or lose consciousness during any of the falls but does take Eliquis. Denies any chest pain, abdominal pain, back pain. She thinks she might have a urinary tract infection as she has had previous falls from that. She resides at home and has a family member help take care of her. Pertinent ED labs: WBC 12.3, hemoglobin 15.3, hematocrit 48.1, platelet 308, sodium 134, potassium 4.1, creatinine 0.9 UA: Leukocyte esterase positive, nitrites negative, WBC 11-20. Imaging: Pelvic x-ray: No significant abnormality Knee x-ray right knee: Severe tricompartmental osteoarthritis. 2.8 cm loose body Knee x-ray left knee:Severe tricompartmental osteoarthritis.No acute fracture or dislocation seen. Head CT: No abnormality seen The patient was evaluated at the bedside. The patient reports she is using the wheelchair for the past 4-5 years. When asked about the reason for using the wheelchair, the patient reported she had necrotic fasciitis on her right groin about 4-5 years , and she was in a coma for almost 3 months. Due to no physical activity or exercise, her legs could not regain strength. The patient has diabetes and managed with insulin. Remote history of stent placement. The patient also endorsed the removal of the uterus due to cancer. Current hospitalization is due to ground-level fall. The patient reported she slipped and fell due to the towel on the floor, she recovered from the fall but unfortunately fell again in the bathroom within a few minutes and called EMS. The patient denies any loss of consciousness or trauma to the head. There is no evidence of seizures. EKG was reviewed and shows sinus rhythm. Patient denies any chest pain or palpitation or shortness of breath. Probably the fall is due to mechanical. No evidence of arrhythmias, hypoglycemia, orthostatic hypertension. Patient was diagnosed with bilateral lower ext extremity DVT.I spoke with radiologist ,who is not able to verify whether the BL DVT is acute vs chronic due to poor images. US LE on 08/15/2023 shows no DVT. Patient reports she is taking Eliquis daily one time ,although her home medication regimen shows 2 times a day.Not able to verify whether its medication non compliance vs AC failure. For now will start loading dose Xarelto 15 mg PO BID x 21 days and then 20mg PO QD. Will dc Eliquis. Patient is discharged with the following advice: Patient needs to take Xarelto 15 mg PO BID until 01/05/2025 and the from 01/06 patient needs to take Xarelto 20 mg PO QD for 3 to 6 months. Please discuss with your PCP or Heme-Oncologist and decide the continuation of blood thinner. Please visit Heme-Oncologist if possible with Please visit Vascular surgeon to evaluate the need for IVC. In the event any bleeding episode please immediate medical care. Please take Meloxicam only if needed Status at Discharge Cognitive/behavioral status at discharge: Stable Time Spent with Patient Time attestation: Total time spent providing and/or coordinating discharge services: 45 minute Exam Narrative: GENERAL: Morbidly obese, not in any acute distress, answering all questions appropriately HEAD: [Normocephalic, atraumatic.] EYES: [PERRLA and EOMI.] ENT: Nares clear, no rhinorrhea or epistaxis. Mucous membranes moist. NECK: Supple. CHEST: [Clear to auscultation. No respiratory distress.] HEART: [Regular rate and rhythm]. No murmur heard. [Normal peripheral pulses.] 2+ dorsalis pedis pulse, warm extremities with 2+ cap refill in both feet and hands ABDOMEN: [Soft, nondistended], [nontender], [No rigidity or guarding] EXTREMITIES: Large extremities with limited range of motion secondary to obesity, bruising noted over the lateral aspect of the right knee, passive range of motion is full. Plantar dorsiflexion of the ankle is 5/5 with good strength. No traumatic evidence on her upper extremities or chest/Abdo SKIN: Discoloration to the bilateral feet with chronic appearing venous stasis dermatitis to the bilateral shins and up to the knees. NEURO: [No focal deficits]. Alert and oriented [x3.] PSYCH: [Normal mood and affect.] DS: Data Data Completed and Pending Labs on day of discharge: Labs from last 24 hours 12/16/24 12/16/24 12/16/24 11:24 08:18 06:34 WBC 8.9 RBC 5.26 Hgb 15.1 H Hct 48.7 H MCV 92.6 MCH 28.7 MCHC 31.0 L RDW 14.6 H Plt Count 252 MPV 9.5 Sodium 137 Potassium 4.6 Chloride 105 Carbon Dioxide 24 Anion Gap 8 BUN 20 H Creatinine 0.83 Estim Creat Clear Calc 91 Estimated GFR > 60 Glucose 59 L* POC Capillary Glucose 201 H 90 Calcium 8.6 Total Bilirubin 0.5 AST 18 ALT 13 Alkaline Phosphatase 70 Total Protein 6.0 L Albumin 3.3 L 12/15/24 12/15/24 21:24 16:46 WBC RBC Hgb Hct MCV MCH MCHC RDW Plt Count MPV Sodium Potassium Chloride Carbon Dioxide Anion Gap BUN Creatinine Estim Creat Clear Calc Estimated GFR Glucose POC Capillary Glucose 119 H 130 H Calcium Total Bilirubin AST ALT Alkaline Phosphatase Total Protein Albumin Preliminary micro results at discharge 12/14/24 04:05 Urine Culture - Preliminary Unspecified Escherichia Coli Discharge Plan Discharge Attending physician on discharge: Felix Shine Discharging Clinician: Felix Shine Anticipated Discharge Date/Time: 12/16/24 13:40 Patient Disposition: Home Health Service Activity: as tolerated Diet: diabetic Discharge Instructions: Per Care Coordiination. Patient to have [facility] for RN/PT/OT eval and treat [phone]. RN please fax discharge instructions [phone] Patient needs to take Xarelto 15 mg PO BID until 01/05/2025 and the from 01/06 patient needs to take Xarelto 20 mg PO QD for 3 to 6 months. Please discuss with your PCP or Heme-Oncologist and decide the continuation of blood thinner. Please visit Heme-Oncologist if possible with Please visit Vascular surgeon to evaluate the need for IVC. In the event any bleeding episode please immediate medical care. Please take Meloxicam only if needed Patient Instructions: Antibiotic Form Patient Language: Faroese Stand Alone Forms: General Discharge Information Follow-up/Referrals: Aman Matthews MD [Physician] - (Patient needs to take Xarelto 15 mg PO BID until 01/05/2025 and the from 01/06 patient needs to take Xarelto 20 mg PO QD for 3 to 6 months. Please discuss with your PCP or Heme-Oncologist and decide the continuation of blood thinner. Please visit Heme-Oncologist if possible with Please visit Vascular surgeon to evaluate the need for IVC. In the event any bleeding episode please immediate medical care. Please take Meloxicam only if needed) Gurvinder Renteria MD [Primary Care Provider] - (Patient needs to take Xarelto 15 mg PO BID until 01/05/2025 and the from 01/06 patient needs to take Xarelto 20 mg PO QD for 3 to 6 months. Please discuss with your PCP or Heme-Oncologist and decide the continuation of blood thinner. Please visit Heme-Oncologist if possible with Please visit Vascular surgeon to evaluate the need for IVC. In the event any bleeding episode please immediate medical care. Please take Meloxicam only if needed) Discharge Medications: New Xarelto 15 mg Tablet 15 mg PO BIDWM Qty: 50 0RF Xarelto 20 mg Tablet 20 mg PO DAILY@1700 Qty: 60 0RF meloxicam 15 mg tablet 15 mg PO DAILY PRN (Reason: pain (scale score 4-6)) Qty: 20 0RF Rx Instructions: Take with food if needed for pain Continued Trulicity 3 mg/0.5 mL pen injector 3 mg subcut WEEKLY Qty: 6 1RF atorvastatin 40 mg Tablet 40 mg PO HS citalopram 40 mg Tablet 40 mg PO DAILY famotidine 40 mg Tablet 40 mg PO DAILY ropinirole 3 mg Tablet 3 mg PO HS nortriptyline 25 mg Capsule 25 mg PO TID Rx Instructions: takes at 9,1400,2100 primidone 250 mg Tablet 250 mg PO BID gabapentin 800 mg Tablet 800 mg PO TID Rx Instructions: takes at 09,1400,2100 lisinopril 30 mg Tablet 30 mg PO DAILY oxybutynin chloride 5 mg Tablet 5 mg PO HS metformin 500 mg Tablet 500 mg PO BID insulin glargine [Basaglar KwikPen U-100 Insulin] 100 unit/mL (3 mL) insulin pen 42 unit SUBCUT QAM insulin glargine [Basaglar KwikPen U-100 Insulin] 100 unit/mL (3 mL) insulin pen 46 unit SUBCUT QHS tolnaftate 1 % powder 1 applic topical Q12HR PRN (Reason: Rash) Rx Instructions: Apply to groin folds until clear then use as needed. metoprolol tartrate 50 mg Tablet 50 mg PO Q12HR Qty: 60 1RF docusate sodium 100 mg capsule 100 mg PO PRN PRN (Reason: Constipation) budesonide-formoterol [Symbicort] 160-4.5 mcg/actuation HFA aerosol inhaler 1 inh INHALATION DAILY PRN (Reason: Shortness Of Breath) (DME) FreeStyle Fredi 3 [place] Misc See Rx Instructions .Route Qty: 1 0RF Rx Instructions: use to monitor blood sugars (DME) FreeStyle Fredi 3 Plus Sensor Device See Rx Instructions .Route Qty: 2 3RF Rx Instructions: change every 15 days Discontinued meloxicam 15 mg tablet 15 mg PO DAILY Eliquis 5 mg Tablet 5 mg PO Q12HR Qty: 6 1RF Date of admission: 12/14/24 06:23 Primary Care Provider: Gurvinder Renteria Admitting Provider: Julia Renee V. Attending physician on admission: Julia Renee V. Condition: Stable
[2024-12-16] MEDS: HYDROcodone/acetaminophen (*CRX) 10-325 MG TABLET 1 TAB PO (14:40)
[2024-12-16 15:23] VITALS: BP 132/64; PULSE 60; RESP 18; TEMP 36.6; O2SAT 97
[2024-12-16 17:05] LABS: Glucose Point of Care 103 mg/dl (65-105)
== END 2024-12-16 18:55 | disposition home health service (06) ==
LOC: ANHED 12-14 06:26 → ANH3MEDSUR 12-15 10:28
PROVIDERS: Admitting Provider Internal Medicine; Emergency Provider Student in an Organized Health Care Education/Training Program; PCP Family Medicine; Visit Provider General Practice
DX: I82.413 Acute embolism and thrombosis of femoral vein, bilateral (principal); N39.0 Urinary tract infection, site not specified; I47.19 Other supraventricular tachycardia; R53.81 Other malaise; E66.01 Morbid (severe) obesity due to excess calories; Z68.44 Body mass index [BMI] 60.0-69.9, adult; I25.10 Atherosclerotic heart disease of native coronary artery without angina pectoris; I48.91 Unspecified atrial fibrillation; E11.40 Type 2 diabetes mellitus with diabetic neuropathy, unspecified; I11.0 Hypertensive heart disease with heart failure; I50.9 Heart failure, unspecified; E78.5 Hyperlipidemia, unspecified; J44.9 Chronic obstructive pulmonary disease, unspecified; F31.9 Bipolar disorder, unspecified; F17.210 Nicotine dependence, cigarettes, uncomplicated; Z91.81 History of falling; Z99.3 Dependence on wheelchair; Z79.01 Long term (current) use of anticoagulants; Z79.51 Long term (current) use of inhaled steroids; Z79.84 Long term (current) use of oral hypoglycemic drugs; Z79.4 Long term (current) use of insulin; Z79.899 Other long term (current) drug therapy
CPT/HCPCS: 36415; 70450; 71275; 72125; 72128; 72131; 72170; 73562; 80053; 81001; 82948; 83735; 84100; 84550; 85025; 85027; 87086; 87186; 93005; 93970; 96365; 96374; 96375; 97110; 97162; 97166; 97530; 97535; 99285; A9270; G0378; G0379; J0696; J1815; Q9967

== ENCOUNTER 2025-05-09 03:42 | Emergency (ER) | payer OTHER, SELFPAY ==
[2025-05-09] VITALS (33 sets, daily range): BP systolic 123–173; BP diastolic 61–143; PULSE 72–88; RESP 14–22; TEMP 36.6; O2SAT 91–99
--- NOTE | ~2025-05-09 | CT_ITS ---
Non-contrast Head CT History: Status post fall Technique: Axial non-contrast imaging of the brain was performed. Dose reduction technique was used on this scan by utilizing automated exposure control and iterative reconstruction technique. The dose -length product (DLP) was 681.00 mGy-cm. Findings: There is no evidence of intracranial hemorrhage, mass lesion, or acute infarct. Brain par enchyma appears normal. The ventricles and subarachnoid spaces are normal in size. The calvarium ap pears normal. The visualized paranasal sinuses and mastoid air cells are clear. Impression: No significant abnormality seen. Reviewed, dictated and finalized at location . Impression: No significant abnormality seen.
--- NOTE | ~2025-05-09 | XR_ITS ---
Left Knee Technique: AP, lateral, and sunrise views were obtained. Clinical History: Pain Findings: No fracture or dislocation is seen. There is severe tricompartment osteoarthritis with exte nsive joint space narrowing and extensive osteophyte formation.. Soft tissues are unremarkable. No norm int effusion is seen. Impression: Severe tricompartmental osteoarthritis. Reviewed, dictated and finalized at location . Impression: Severe tricompartmental osteoarthritis.
--- NOTE | ~2025-05-09 | XR_ITS ---
AP view of the pelvis and AP and lateral views of the left hip Clinical history: Pain Findings: No acute fracture or dislocation is seen. Osseous alignment is anatomic. Bilateral hip and SI joint spaces are preserved. Soft tissues are unremarkable. Impression: No significant abnormality is seen. Reviewed, dictated and finalized at [facility]. Impression: No significant abnormality is seen.
--- NOTE | ~2025-05-09 | XR_ITS ---
Left Shoulder Technique: AP and scapular Y views were obtained. Clinical History: Pain Findings: No fracture or dislocation is seen. Osseous alignment is anatomic. The glenohumeral joint i s intact. There is mild AC joint degenerative change. Soft tissues are unremarkable. Impression: Mild AC joint degenerative change. Reviewed, dictated and finalized at [facility]. Impression: Mild AC joint degenerative change.
--- NOTE | ~2025-05-09 | CT_ITS ---
CT cervical spine wo con Ordering provider: Tonia Lees MD History: . fall bed . Comparison: December 14, 2024 Technique: CT of the cervical spine was performed without contrast. Sagittal and coronal reformatted images were also obtained and reviewed. Automated exposure control and iterative reconstruction louisa hnique were employed. The dose-length product was 681.00 mGy-cm. FINDINGS: VERTEBRAE: No subluxation or acute fracture. The occipital condyles are intact. Degenerative changes of the spine. Posterior arch of C1. DISC SPACES: Narrowing of the disc C4-C5, C5-C6 and C6-C7. Multilevel facet joint disease. Multilevel uncovertebral joint osteoarthritic changes. Narrowing of the right foramen at the level of C3-C4 and C4-C5. Bilateral narrowing of the foramina at the level of C5-C6. PARASPINOUS SOFT TISSUES: Normal. IMPRESSION: No acute osseous abnormality cervical spine. Multilevel degenerative disc disease with multilevel intervertebral foraminal narrowing. Reviewed, dictated and finalized at location A. IMPRESSION: No acute osseous abnormality cervical spine. Multilevel degenerative disc disease with multilevel intervertebral foraminal n arrowing.
--- NOTE | 2025-05-09 07:00 | ED_ITS ---
HPI - Fall General Chief Complaint: Extremity Problem,Nontraumatic Stated Complaint: LLE & LUE PAIN S/P FALL OUT OF BED Time Seen by Provider: 05/09/25 06:59 Source: patient and RN notes reviewed Mode of arrival: EMS Limitations: physical limitation History of Present Illness HPI Narrative: Patient is a 64-year-old female who is bed-bound at baseline due to significant arthritis by report. She fell out of bed this morning on her left side and is complaining of pain particularly at her left shoulder, left knee, and left hip. She did not taking medications for pain prior to arrival but does note that she is on a combination of medications for pain at baseline given her arthritis. She does not recall them although she does note that 1 of them is gabapentin. She had reported at triage that she is on a little purple blood thinner.She denies any paresthesias. Related Data Home Medications ?Medication ?Instructions ?Recorded ?Confirmed ?Last Taken ?Type atorvastatin 40 mg tablet 40 mg PO 08/09/23 12/14/24 12/13/24 History citalopram 40 mg tablet 40 mg PO DAILY 08/09/23 12/14/24 12/13/24 History famotidine 40 mg tablet 40 mg PO DAILY 08/09/23 12/14/24 12/13/24 History gabapentin 800 mg tablet 800 mg PO TID 08/09/23 12/14/24 12/13/24 History lisinopril 30 mg tablet 30 mg PO DAILY 08/09/23 12/14/24 12/13/24 History nortriptyline 25 mg capsule 25 mg PO TID 08/09/23 12/14/24 12/13/24 History oxybutynin chloride 5 mg tablet 5 mg PO 08/09/23 12/14/24 12/13/24 History primidone 250 mg tablet 250 mg PO BID 08/09/23 12/14/24 12/13/24 History ropinirole 3 mg tablet 3 mg PO 08/09/23 12/14/24 12/13/24 History insulin glargine 100 unit/mL (3 42 unit subcut QAM 12/15/23 12/14/24 12/13/24 History mL) subcutaneous pen (Basaglar KwikPen U-100 Insulin) insulin glargine 100 unit/mL (3 46 unit subcut QHS 12/15/23 12/14/24 12/13/24 History mL) subcutaneous pen (Basaglar KwikPen U-100 Insulin) metformin 500 mg tablet 500 mg PO BID 12/15/23 12/14/24 12/13/24 History tolnaftate 1 % topical powder 1 applic topical Q12HR PRN Rash 12/15/23 12/14/24 12/13/24 History budesonide-formoterol HFA 160 1 inh inhalation DAILY PRN 03/10/24 12/14/24 12/13/24 History mcg-4.5 mcg/actuation aerosol Shortness Of Breath inhaler (Symbicort) docusate sodium 100 mg capsule 100 mg PO PRN PRN Constipation 03/10/24 12/14/24 12/13/24 History Allergies Allergy/AdvReac Type Severity Reaction Status Date / Time morphine Allergy Severe Swelling Verified 09/30/24 13:53 of Lip/Tongue/Throat PMFSH Past Medical History Medical History Bedbound Restless leg syndrome Neuropathy Asthma Heart failure Anxiety and depression Suicide attempt x3, last attempt in Bipolar disorder Arthritis HLD (hyperlipidemia) Migraine COPD (chronic obstructive pulmonary disease) Hypertension Atrial fibrillation with RVR Tobacco abuse Degenerative joint disease of knee Diabetes mellitus with hyperglycemia Morbid obesity with BMI of 60.0-69.9, adult Cellulitis of groin necrotizing fasciitis Frequent falls MINA (acute kidney injury) Cellulitis 2006 Surgical History Surgical History 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 History of cholecystectomy History of heart artery stent Family History Family History Father Acute myocardial infarction Hypertension Grandparent Chronic obstructive pulmonary disease Diabetes mellitus Mother Congestive heart failure Diabetes mellitus Hypertension Other Leukemia Social History Social History Smoking packs per day: 2 Smoking cigarettes per day: 40.0 Years smoked: 47 Smoking pack-years: 94.00 Smoking status: Current every day smoker Tobacco type: cigarettes Second hand tobacco smoke exposure: Yes Alcohol intake: current Drinks per week: 1 Substance use: current Substance use type: marijuana Other substance usage details: alcohol couple times/year, currently uses CBD gummies and smokes marijuana Do You Feel Safe in your Home?: Yes Lack of Transportation: No Lack of Food: Never True Current Housing: I Have Housing Concerned About Future Housing: No Difficulty Paying Gas/Electric Bills: YES Difficulty Paying for Meds: No Currently Unemployed: No Education: Don't Know Difficulty w/ Childcare or Family Care: No Spiritual care concerns: No Exam Narrative: GENERAL: well-nourished, and in no acute distress. HEAD: Normocephalic, atraumatic. EYES: Non injected, non icteric ENT: Nares clear, no rhinorrhea or epistaxis. Gross auditory acuity intact. NECK: Supple. No meningismus. CHEST: Speaking in full sentences. No respiratory distress. HEART: Regular rate and rhythm. . ABDOMEN: Morbidly obese to but Soft, nondistended. EXTREMITIES: Mild tenderness to palpation when palpating the left shoulder girdle which is otherwise without bony deformity or crepitus. No overlying ecchymosis. No ecchymosis crepitus or obvious bony deformity of left hip or left knee. Patient has significant body habitus and underlying arthritis limits full assessment of range of motion SKIN: Warm, dry, no rash. NEURO: Alert and oriented. Answering questions. Following commands. Normal speech without aphasia or dysarthria. PSYCH: Congruent mood and affect. Course Vital Signs Vital signs: Vital Signs Temperature 97.8 F 05/09/25 03:43 Pulse Rate 75 05/09/25 03:43 Respiratory Rate 16 05/09/25 03:43 Blood Pressure 153/118 H 05/09/25 03:43 Pulse Oximetry 94 05/09/25 03:43 Oxygen Delivery Room Air 05/09/25 03:43 Temperature 97.8 F 05/09/25 03:43 Pulse Rate 74 05/09/25 08:45 Respiratory Rate 19 05/09/25 08:45 Blood Pressure 139/88 05/09/25 08:45 Pulse Oximetry 94 05/09/25 08:45 Oxygen Delivery Room Air 05/09/25 03:43 MDM - Fall MDM Narrative Medical decision making narrative: Patient presents after a fall from bed. She is essentially bed-bound due to reported arthritis. She also has morbid obesity with BMI greater than 65. In the emergency department she is afebrile with vital signs notable for hypertension. Plain film imaging negative as below. Given that she had reported being on a blood thinner, will also proceed with CT imaging. Patient is on a chronic pain regimen at home. She cannot recall the medications although notes that 1 of them is gabapentin. This is ordered as well as acetaminophen to begin. Patient lists allergy to morphine. Imaging negative for acute process. Discharged home stable condition. EMS transportation arranged due to bed-bound status. Differential Diagnosis Differential diagnosis: Likely dislocation of shoulder region, compression fracture and other (Fracture/dislocation, intracranial hemorrhage) Imaging Data Radiologist's impression: Impressions Hip/Pelvis X-Ray 05/09/25 05:40 Impression: No significant abnormality is seen. Shoulder X-Ray 05/09/25 05:40 Impression: Mild AC joint degenerative change. Knee X-Ray 05/09/25 05:41 Impression: Severe tricompartmental osteoarthritis. Head CT 05/09/25 08:00 Impression: No significant abnormality seen. Cervical Spine CT 05/09/25 08:13 IMPRESSION: No acute osseous abnormality cervical spine. Multilevel degenerative disc disease with multilevel intervertebral foraminal narrowing. Discharge Plan Discharge Clinical Impression: Degenerative joint disease of left acromioclavicular joint, Fall from bed, Tricompartment osteoarthritis of left knee, Multilevel degenerative joint disease of spine Patient Disposition: Home Condition: Stable Instructions: Antibiotic Form, Osteoarthritis (DC), Fall Prevention (ED), Degenerative Disc Disease (ED) Additional Instructions: Continue taking your multimodal pain regimen as prescribed especially since you will likely continue to be sore and achy after this fall although there were no broken bones or bleeding in her brain. Follow-up with your primary care physician. Return to the emergency department with any new or worsening or unmanaged symptoms. Patient Language: Beninese Prescriptions: No Action atorvastatin 40 mg Tablet 40 mg PO HS citalopram 40 mg Tablet 40 mg PO DAILY famotidine 40 mg Tablet 40 mg PO DAILY ropinirole 3 mg Tablet 3 mg PO HS nortriptyline 25 mg Capsule 25 mg PO TID Rx Instructions: takes at 9,1400,2100 primidone 250 mg Tablet 250 mg PO BID gabapentin 800 mg Tablet 800 mg PO TID Rx Instructions: takes at 09,1400,2100 lisinopril 30 mg Tablet 30 mg PO DAILY oxybutynin chloride 5 mg Tablet 5 mg PO HS metformin 500 mg Tablet 500 mg PO BID insulin glargine [Basaglar KwikPen U-100 Insulin] 100 unit/mL (3 mL) insulin pen 42 unit SUBCUT QAM insulin glargine [Basaglar KwikPen U-100 Insulin] 100 unit/mL (3 mL) insulin pen 46 unit SUBCUT QHS tolnaftate 1 % powder 1 applic topical Q12HR PRN (Reason: Rash) Rx Instructions: Apply to groin folds until clear then use as needed. metoprolol tartrate 50 mg Tablet 50 mg PO Q12HR Qty: 60 1RF docusate sodium 100 mg capsule 100 mg PO PRN PRN (Reason: Constipation) budesonide-formoterol [Symbicort] 160-4.5 mcg/actuation HFA aerosol inhaler 1 inh INHALATION DAILY PRN (Reason: Shortness Of Breath) Xarelto 15 mg Tablet 15 mg PO BIDWM Qty: 50 0RF Xarelto 20 mg Tablet 20 mg PO DAILY@1700 Qty: 60 0RF meloxicam 15 mg tablet 15 mg PO DAILY PRN (Reason: pain (scale score 4-6)) Qty: 20 0RF Rx Instructions: Take with food if needed for pain (DME) FreeStyle Fredi 3 [place] Misc See Rx Instructions .Route Qty: 1 0RF Rx Instructions: use to monitor blood sugars (DME) FreeStyle Fredi 3 Plus Sensor Device See Rx Instructions .Route Qty: 2 3RF Rx Instructions: change every 15 days Trulicity 3 mg/0.5 mL pen injector 3 mg subcut WEEKLY Qty: 6 0RF Rx Instructions: NEEDS APPOINTMENT Follow-up/Referrals: Gurvinder Renteria MD [Primary Care Provider] - Time of Disposition: 08:42
[2025-05-09] MEDS: ACETAMINOPHEN 500 MG TABLET 1000 MG PO (07:40)
[2025-05-09] MEDS: KETOROLAC 30 MG/ML VIAL (*BKC) IM ×2 (07:40→09:06)
[2025-05-09] MEDS: GABAPENTIN 400 MG CAPSULE 800 MG PO (07:41)
== END 2025-05-09 11:03 | disposition home or self-care (01) ==
PROVIDERS: Emergency Provider Student in an Organized Health Care Education/Training Program; PCP Family Medicine
DX: M19.012 Primary osteoarthritis, left shoulder (principal); M17.12 Unilateral primary osteoarthritis, left knee; M47.9 Spondylosis, unspecified; W06.XXXA Fall from bed, initial encounter; F17.210 Nicotine dependence, cigarettes, uncomplicated; F12.90 Cannabis use, unspecified, uncomplicated
CPT/HCPCS: 70450; 72125; 73030; 73502; 73562; 96372; 99284; A9270; J1885

== ENCOUNTER 2025-06-21 15:18 | Observation (INO) | payer OTHER, SELFPAY ==
--- NOTE | ~2025-06-21 | XR_ITS ---
XR chest 1V portable 06/21/2025 15:57 Indication: Weakness. Shortness of breath. Procedure: AP portable chest Comparison: 03/10/2024 Findings: Diffuse bilateral interstitial infiltrates. Borderline heart size. No significant effusion or pneumothorax. No acute osseous abnormality. Impression: 1: Diffuse bilateral interstitial infiltrates which may represent edema or atypical pneumonia. Reviewed, dictated and finalized at location A. Impression: 1: Diffuse bilateral interstitial infiltrates which may represent edema or atyp ical pneumonia.
[2025-06-21 15:25] VITALS: BP 108/65; PULSE 96; RESP 20; TEMP 36.7; O2SAT 95
--- NOTE | 2025-06-21 15:28 | ECG_ITS ---
Test Date: 2025-06-21 15:33:17 Measurements Intervals [place] Rate: 90 P: 42 VA: 191 QRS: -38 QRSD: 98 T: 76 QT: 349 QTc: 428 Interpretive Statements SINUS RHYTHM POSSIBLE ANTERIOR MYOCARDIAL INFARCTION , OF INDETERMINATE AGE CONSIDER INFERIOR INFARCT, AGE INDETERMINATE BORDERLINE ST-T WAVE ABNORMALITY- HIGH LATERAL LEADS BASELINE ARTIFACT- I, II, III, AVR, AVL, AVF ABNORMAL ECG Compared to ECG 12/14/2024 04:52:32 NO SIGNIFICANT CHANGE Electronically Signed On 06-21-2025 15:45:30 CDT by Wellington Baker D.O.
--- OUTSIDE RECORDS SUMMARY | 2025-06-21 15:36 | XMS_ITS | Encounter Summary ---
Author Organization [facility] Address [address] [place] [address] Care Team Providers Care Highway Commissioner Name Role Phone Unavailable Primary Care Provider Unavailabl e Encounter Details Date Type Department Care Team (Late st Contact Info) Description 07/11/2021 Lab Requisition [facility] Laboratory Services [address] [place] [address] [place] [address] [place] [address] Social History Tobacco Use Types [...] - 10.5 K/uL 07/11/2021 9:11 AM CDT [facility] LABORATORY SERVICES [facility] RBC 3.85(L) 3.90 - 4.90 M/uL 07/11/2021 9:11 AM CDT [facility] LABORATORY [facility] HEMOGLOBIN 10.5(L) 11.8 - 14.8 g/dL 07/11/2021 9:11 AM CDT [facility] LABORATORY [facility] HEMATOCRIT 32.4(L) 35.5 - 44.0 % 07/11/2021 9:[facility] MCV 84.0 82.0 - 99.0 fL 07/11/2021 9:11 AM CDT [facility] LABORATORY [facility] MCH 27.1(L) 27.8 - 34.5 pg 07/11/2021 9:11 AM CDT [facility] LABORATORY [facility] MCHC 32.3(L) 32.5 - 35.5 g/dL 07/11/2021 9:11 AM CDT [facility] LABORATORY SERVICES [facility] RDW 15.2(H) 11.5 - 14.5 % 07/11/2021 9:11 AM CDT [facility] LABORATORY [facility] PLATELETS 404 160 - 420 K/uL 07/11/2021 9:11 AM CDT [facility] LABORATORY [facility] MPV 8.0(L) 8.7 - 12.7 fL 07/11/2021 9:11 AM CDT [facility] LABORATORY SERVICES [facility] NEUTROPHILS 49 % 07/11/2021 9:11 AM CDT [facility] LABORATORY SERVICES [facility] LYMPHOCYTES 37 % 07/11/2021 9:11 AM CDT [facility] LABORATORY SERVICES [facility] MONOCYTES 8 % 07/11/2021 9:11 AM CDT [facility] LABORATORY SERVICES [facility] EOSINOPHILS 5 % 07/11/2021 9:11 AM CDT [facility] LABORATORY SERVICES [facility] BASOPHILS 1 % 07/11/2021 9:11 AM CDT [facility] LABORATORY SERVICES [facility] NEUTROPHIL ABSOLUTE 3.90 1.90 - 7.00 K/uL 07/11/2021 9:11 AM CDT [facility] LABORATORY [facility] LYMPHOCYTE ABSOLUTE 3.00 0.70 - 4.50 K/uL 07/11/2021 9:11 AM CDT [facility] LABORATORY SERVICES [facility] MONOCYTE ABSOLUTE 0.60 0.10 - 1.30 K/uL 07/11/2021 9:11 AM CDT [facility] LABORATORY [facility] EOSINOPHIL ABSOLUTE 0.40 0.00 - 0.70 K/uL 07/11/2021 9:11 AM CDT [facility] LABORATORY SERVICES - [facility] BASOPHILS ABSOLUTE 0.10 0.00 - 0.20 K/uL 07/11/2021 9:11 AM CDT [facility] LABORATORY [facility] Blood Collection / Unknown 07/11/2021 5:00 AM CDT 07/11/2021 8:43 AM CDT us Nargis Guy MD HEMATOLOGY ORDERABLES Final Resu lt [facility] CLIA# [id number] [place] [address] documented in this encounter Visit Diagnoses Not on filedocumented in this encounter
--- OUTSIDE RECORDS SUMMARY | 2025-06-21 15:36 | XMS_ITS | Encounter Summary ---
Author Organization [facility] Address [address] [place] [address] Care Team Providers Care Building Performance Consultant Name Role Phone Unavailable Primary Care Provider Unavailabl e Encounter Details Date Type Department Care Team (Late st Contact Info) Description 05/14/2021 Lab Requisition [facility] Laboratory Services [address] [place] [address] [place] [address] [place] [address] Social History Tobacco Use Types [...] - 10.5 K/uL 05/14/2021 6:03 AM CDT [facility] LABORATORY [facility] RBC 2.60(L) 3.90 - 4.90 M/uL 05/14/2021 6:03 AM [facility] LABORATORY [facility] HEMOGLOBIN 7.6(L) 11.8 - 14.8 g/dL 05/14/2021 6:03 AM [facility] LABORATORY [facility] HEMATOCRIT 22.9(L) 35.5 - 44.0 % 05/14/2021 6:03 AM [facility] LABORATORY [facility] MCV 88.1 82.0 - 99.0 fL 05/14/2021 6:03 AM [facility] LABORATORY [facility] MCH 29.3 27.8 - 34.5 pg 05/14/2021 6:03 AM [facility] LABORATORY [facility] MCHC 33.3 32.5 - 35.5 g/dL 05/14/2021 6:03 AM [facility] LABORATORY [facility] RDW 15.0(H) 11.5 - 14.5 % 05/14/2021 6:03 AM CDT [facility] LABORATORY [facility] PLATELETS 168 160 - 420 K/uL 05/14/2021 6:03 AM [facility] LABORATORY [facility] MPV 8.5(L) 8.7 - 12.7 fL 05/14/2021 6:03 AM CDT [facility] LABORATORY [facility] NEUTROPHILS 56 % 05/14/2021 6:03 AM CDT [facility] LABORATORY [facility] LYMPHOCYTES 26 % 05/14/2021 6:03 AM CDT [facility] LABORATORY [facility] MONOCYTES 13 % 05/14/2021 6:03 AM CDT [facility] LABORATORY SERVICES [facility] EOSINOPHILS 5 % 05/14/2021 6:03 AM CDT [facility] LABORATORY [facility] BASOPHILS 1 % 05/14/2021 6:03 AM CDT [facility] LABORATORY [facility] NEUTROPHIL ABSOLUTE 3.70 1.90 - 7.00 K/uL 05/14/2021 6:03 AM [facility] LABORATORY [facility] LYMPHOCYTE ABSOLUTE 1.70 0.70 - 4.50 K/uL 05/14/2021 6:03 AM CDT [facility] LABORATORY [facility] MONOCYTE ABSOLUTE 0.80 0.10 - 1.30 K/uL 05/14/2021 6:03 AM CDT [facility] LABORATORY SERVICES - [facility] EOSINOPHIL ABSOLUTE 0.30 0.00 - 0.70 K/uL 05/14/2021 6:03 AM CDT [facility] LABORATORY SERVICES - [facility] BASOPHILS ABSOLUTE 0.10 0.00 - 0.20 K/uL 05/14/2021 6:03 AM CDT [facility] LABORATORY [facility] Blood BLOOD SPECIMEN / Unknown Collection / Unknown 05/14/2021 3:30 AM CDT 05/14/2021 5:27 AM CDT Nargis Guy MD HEMATOLOGY ORDERABLES Final Resu lt [facility] CLIA# [id number] [place] [address] * (ABNORMAL) BASIC METABOLIC PANEL (05/14/2021 3:30 AM CDT) Pathologist [facility] SODIUM 140 136 - 145 mmol/L 05/14/2021 6:38 AM CDT [facility] LABORATORY [facility] POTASSIUM 4.2 3.4 - 5.1 mmol/L 05/14/2021 6:38 AM CDT [facility] LABORATORY [facility] CHLORIDE 105 98 - 107 mmol/L 05/14/2021 6:38 AM CDT [facility] LABORATORY [facility] CO2 21(L) 22 - 29 mmol/L 05/14/2021 6:38 AM CDT [facility] LABORATORY [facility] CALCIUM 8.9 8.6 - 10.4 mg/dL 05/14/2021 6:38 AM CDT [facility] LABORATORY [facility] BUN 22(H) 6 - 20 mg/dL 05/14/2021 6:38 AM CDT [facility] LABORATORY [facility] CREATININE 2.50(H) 0.51 - 0.95 mg/dL 05/14/2021 6:38 AM CDT [facility] LABORATORY [facility] GLUCOSE 96 74 - 99 mg/dL 05/14/2021 6:38 AM CDT [facility] LABORATORY [facility] GFR 20 mL/min/1.7 3 sq meter 05/14/2021 6:38 AM CDT [facility] Comment: eGFR has not been validated [...] 3 sq meter 05/14/2021 6:38 AM CDT [facility] ANION GAP 14 8 - 16 mmol/L 05/14/2021 6:38 AM CDT [facility] Blood BLOOD SPECIMEN / Unknown Collection / Unknown 05/14/2021 3:30 AM CDT 05/14/2021 5:27 AM CDT us Nargis Guy MD CHEMISTRY ORDERABLES Final Resul t [facility] Viveve [facility] CLIA# [id number] [place] [address] documented in this encounter Visit Diagnoses Not on filedocumented in this encounter
--- OUTSIDE RECORDS SUMMARY | 2025-06-21 15:36 | XMS_ITS | Encounter Summary ---
Author Organization [facility] Address [address] [place] [address] Care Team Providers Care Supervisor Major Appliance Assembly Name Role Phone Unavailable Primary Care Provider Unavailabl e Encounter Details Date Type Department Care Team (Late st Contact Info) Description 06/27/2021 Lab Requisition [facility] Laboratory Services [address] [place] [address] [place] [address] [place] [address] Social History Tobacco Use Types [...] - 10.5 K/uL 06/27/2021 8:37 AM CDT [facility] LABORATORY [facility] RBC 3.25(L) 3.90 - 4.90 M/uL 06/27/2021 8:37 AM CDT [facility] LABORATORY [facility] HEMOGLOBIN 8.9(L) 11.8 - 14.8 g/dL 06/27/2021 8[facility] HEMATOCRIT 27.8(L) 35.5 - 44.0 % 06/27/2021 8:37 AM CDT [facility] LABORATORY [facility] MCV 85.6 82.0 - 99.0 fL 06/27/2021 8:37 AM CDT [facility] LABORATORY [facility] MCH 27.5(L) 27.8 - 34.5 pg 06/27/2021 8:37 AM CDT [facility] LABORATORY [facility] MCHC 32.2(L) 32.5 - 35.5 g/dL 06/27/2021 8:37 AM CDT [facility] LABORATORY [facility] RDW 15.7(H) 11.5 - 14.5 % 06/27/2021 8:37 AM CDT [facility] LABORATORY [facility] PLATELETS 367 160 - 420 K/uL 06/27/2021 8:[facility] MPV 7.7(L) 8.7 - 12.7 fL 06/27/2021 8:37 AM CDT [facility] LABORATORY [facility] NEUTROPHILS 53 % 06/27/2021 8:37 AM CDT [facility] LABORATORY [facility] LYMPHOCYTES 33 % 06/27/2021 8:37 AM CDT [facility] LABORATORY SERVICES [facility] MONOCYTES 9 % 06/27/2021 8:37 AM CDT [facility] LABORATORY SERVICES [facility] EOSINOPHILS 4 % 06/27/2021 8:37 AM CDT [facility] LABORATORY SERVICES [facility] BASOPHILS 1 % 06/27/2021 8:37 AM CDT [facility] LABORATORY [facility] NEUTROPHIL ABSOLUTE 3.40 1.90 - 7.00 K/uL 06/27/2021 8:37 AM CDT [facility] LABORATORY [facility] LYMPHOCYTE ABSOLUTE 2.20 0.70 - 4.50 K/uL 06/27/2021 8:37 AM CDT [facility] LABORATORY [facility] MONOCYTE ABSOLUTE 0.60 0.10 - 1.30 K/uL 06/27/2021 8:37 AM CDT [facility] LABORATORY SERVICES [facility] EOSINOPHIL ABSOLUTE 0.30 0.00 - 0.70 K/uL 06/27/2021 8:37 AM CDT [facility] LABORATORY SERVICES [facility] BASOPHILS ABSOLUTE 0.10 0.00 - 0.20 K/uL 06/27/2021 8:37 AM CDT [facility] LABORATORY [facility] Blood Collection / Unknown 06/27/2021 4:22 AM CDT 06/27/2021 8:17 AM CDT Nargis Guy MD HEMATOLOGY ORDERABLES Final Resu lt [facility] CLIA# [id number] [place] [address] * (ABNORMAL) COMPREHENSIVE METABOLIC PANEL (06/27/2021 4:22 AM CDT) SODIUM 137 136 - 145 mmol/L 06/27/2021 9:05 AM CDT [facility] POTASSIUM 3.9 3.4 - 5.1 mmol/L 06/27/2021 9:05 AM T [facility] LABORATORY [facility] CHLORIDE 104 98 - 107 mmol/L 06/27/2021 9:05 AM T [facility] LABORATORY [facility] CO2 24 22 - 29 mmol/L 06/27/2021 9:05 AM T [facility] LABORATORY [facility] CALCIUM 8.8 8.6 - 10.4 mg/dL 06/27/2021 9:05 AM CDT [facility] LABORATORY [facility] BUN 10 6 - 20 mg/dL 06/27/2021 9:05 AM CDT [facility] LABORATORY [facility] CREATININE 1.00(H) 0.51 - 0.95 mg/dL 06/27/2021 9:05 AM T [facility] LABORATORY [facility] GLUCOSE 110(H) 74 - 99 mg/dL 06/27/2021 9:05 AM T [facility] TOTAL PROTEIN 5.9(L) 6.3 - 8.7 g/dL 06/27/2021 9:05 AM [facility] ALBUMIN 2.5(L) 3.5 - 5.2 g/dL 06/27/2021 9:05 AM [facility] BILIRUBIN TOTAL <0.2(L) 0.2 - 1.1 mg/dL 06/27/2021 9:05 AM [facility] ALKALINE PHOSPHATASE 96 40 - 150 U/L 06/27/2021 9:05 AM [facility] AST 19 0 - 33 U/L 06/27/2021 9:05 AM [facility] ALT 17 0 - 33 U/L 06/27/2021 9:05 AM [facility] GFR 57 mL/min/1.7 3 sq meter 06/27/2021 9:05 AM [facility] Comment: eGFR has not been validated [...] 3 sq meter 06/27/2021 9:05 AM T [facility] ANION GAP 9 8 - 16 mmol/L 06/27/2021 9:05 AM [facility] Blood Collection / Unknown 06/27/2021 4:22 AM CDT 06/27/2021 8:17 AM CDT us Nargis Guy MD CHEMISTRY ORDERABLES Final Resul t [facility] CLIA# [id number] [place] [address] documented in this encounter Visit Diagnoses Not on filedocumented in this encounter
--- OUTSIDE RECORDS SUMMARY | 2025-06-21 15:36 | XMS_ITS | Encounter Summary ---
Author Organization [facility] Address [address] [place] [address] Care Team Providers Care Machine Feeder Raw Stock Name Role Phone Unavailable Primary Care Provider Unavailabl e Encounter Details Date Type Department Care Team (Late st Contact Info) Description 07/05/2021 Lab Requisition [facility] Laboratory Services [address] [place] [address] [place] [address] [place] [address] Social History Tobacco Use Types [...] - 10.5 K/uL 07/05/2021 10:39 AM CDT [facility] LABORATORY [facility] RBC 3.78(L) 3.90 - 4.90 M/uL 07/05/2021 10:39 AM [facility] LABORATORY [facility] HEMOGLOBIN 10.0(L) 11.8 - 14.8 g/dL 07/05/2021 10:39 AM [facility] LABORAT[facility] HEMATOCRIT 31.8(L) 35.5 - 44.0 % 07/05/2021 10:39 AM CDT [facility] LABORATORY [facility] MCV 84.2 82.0 - 99.0 fL 07/05/2021 10:39 AM [facility]ORAT[facility] MCH 26.5(L) 27.8 - 34.5 pg 07/05/2021 10:39 AM [facility] MCHC 31.5(L) 32.5 - 35.5 g/dL 07/05/2021 10:39 AM [facility] RDW 15.4(H) 11.5 - 14.5 % 07/05/2021 10:39 AM CDT [facility] LABORATORY [facility] PLATELETS 368 160 - 420 K/uL 07/05/2021 10:39 AM [facility]OR[facility] MPV 7.5(L) 8.7 - 12.7 fL 07/05/2021 10:39 AM CDT [facility] LABORATORY [facility] NEUTROPHILS 53 % 07/05/2021 10:39 AM CDT [facility] LABORATORY [facility] LYMPHOCYTES 33 % 07/05/2021 10:39 AM CDT [facility] LABORATORY [facility] MONOCYTES 8 % 07/05/2021 10:39 AM CDT [facility] LABORATORY SERVICES [facility] EOSINOPHILS 5 % 07/05/2021 10:39 AM CDT [facility] LABORATORY SERVICES [facility] BASOPHILS 1 % 07/05/2021 10:39 AM CDT [facility] LABORATORY [facility] NEUTROPHIL ABSOLUTE 3.40 1.90 - 7.00 K/uL 07/05/2021 10:39 AM CDT [facility] LABORATORY [facility] LYMPHOCYTE ABSOLUTE 2.20 0.70 - 4.50 K/uL 07/05/2021 10:39 AM CDT [facility] LABORATORY [facility] MONOCYTE ABSOLUTE 0.50 0.10 - 1.30 K/uL 07/05/2021 10:39 AM CDT [facility] LABORATORY SERVICES - [facility] EOSINOPHIL ABSOLUTE 0.30 0.00 - 0.70 K/uL 07/05/2021 10:39 AM CDT [facility] LABORATORY SERVICES - [facility] BASOPHILS ABSOLUTE 0.10 0.00 - 0.20 K/uL 07/05/2021 10:39 AM CDT [facility] LABORATORY SERVICES [facility] Blood Collection / Unknown 07/05/2021 6:00 AM CDT 07/05/2021 10:24 AM CDT Nargis Guy MD HEMATOLOGY ORDERABLES Final Resu lt [facility] CLIA# [id number] [place] [address] * (ABNORMAL) COMPREHENSIVE METABOLIC PANEL (07/05/2021 6:00 AM CDT) SODIUM 139 136 - 145 mmol/L 07/05/2021 11:04 AM CDT [facility] POTASSIUM 4.5 3.4 - 5.1 mmol/L 07/05/2021 11:04 AM CDT [facility] SERVICES [facility] CHLORIDE 102 98 - 107 mmol/L 07/05/2021 11:04 AM CDT [facility] CO2 25 22 - 29 mmol/L 07/05/2021 11:04 AM CDT [facility] SERVICES [facility] CALCIUM 9.1 8.6 - 10.4 mg/dL 07/05/2021 11:04 AM CDT [facility] BUN 14 6 - 20 mg/dL 07/05/2021 11:04 AM CDT [facility] SERVICES [facility] CREATININE 0.95 0.51 - 0.95 mg/dL 07/05/2021 11:04 AM CDT [facility] GLUCOSE 101(H) 74 - 99 mg/dL 07/05/2021 11:04 AM CDT [facility] TOTAL PROTEIN 6.1(L) 6.3 - 8.7 g/dL 07/05/2021 11:04 AM [facility] ALBUMIN 2.9(L) 3.5 - 5.2 g/dL 07/05/2021 11:04 AM [facility] BILIRUBIN TOTAL <0.2(L) 0.2 - 1.1 mg/dL 07/05/2021 11:04 AM [facility] ALKALINE PHOSPHATASE 107 40 - 150 U/L 07/05/2021 11:04 AM [facility] AST 16 0 - 33 U/L 07/05/2021 11:04 AM [facility] ALT 13 0 - 33 U/L 07/05/2021 11:04 AM [facility] GFR 60 mL/min/1.7 3 sq meter 07/05/2021 11:04 AM [facility] Comment: eGFR has not been validated [...] 3 sq meter 07/05/2021 11:04 AM T [facility] ANION GAP 12 8 - 16 mmol/L 07/05/2021 11:04 AM [facility] Blood Collection / Unknown 07/05/2021 6:00 AM CDT 07/05/2021 10:24 AM CDT us Nargis Guy MD CHEMISTRY ORDERABLES Final Resul t [facility] CLIA# [id number] [place] [address] documented in this encounter Visit Diagnoses Not on filedocumented in this encounter
--- OUTSIDE RECORDS SUMMARY | 2025-06-21 15:36 | XMS_ITS | Encounter Summary ---
Author Organization [facility] Address [address] [place] [address] Care Team Providers Care Algebra Teacher Name Role Phone Unavailable Primary Care Provider Unavailabl e Encounter Details Date Type Department Care Team (Late st Contact Info) Description 06/21/2021 Lab Requisition [facility] Laboratory Services [address] [place] [address] [place] [address] [place] [address] Social History Tobacco Use Types [...] - 10.5 K/uL 06/21/2021 1:36 PM CDT [facility] RBC 3.66(L) 3.90 - 4.90 M/uL 06/21/2021 1:36 PM [facility] HEMOGLOBIN 10.1(L) 11.8 - 14.8 g/dL 06/21/2021 1:36 PM [facility] HEMATOCRIT 31.1(L) 35.5 - 44.0 % 06/21/2021 1:36 PM CDT [facility] MCV 84.9 82.0 - 99.0 fL 06/21/2021 1:[facility] MCH 27.5(L) 27.8 - 34.5 pg 06/21/2021 1:36 PM [facility] MCHC 32.3(L) 32.5 - 35.5 g/dL 06/21/2021 1:36 PM [facility] RDW 15.7(H) 11.5 - 14.5 % 06/21/2021 1:36 PM CDT [facility] PLATELETS 397 160 - 420 K/uL 06/21/2021 1:36 PM [facility] MPV 7.6(L) 8.7 - 12.7 fL 06/21/2021 1:36 PM CDT [facility] NEUTROPHILS 64 % 06/21/2021 1:36 PM CDT [facility] LYMPHOCYTES 26 % 06/21/2021 1:36 PM CDT [facility] MONOCYTES 7 % 06/21/2021 1:36 PM CDT [facility] SERVICES [facility] EOSINOPHILS 3 % 06/21/2021 1:36 PM CDT [facility] BASOPHILS 0 % 06/21/2021 1:36 PM CDT [facility] NEUTROPHIL ABSOLUTE 5.00 1.90 - 7.00 K/uL 06/21/2021 1:36 PM CDT [facility] LYMPHOCYTE ABSOLUTE 2.00 0.70 - 4.50 K/uL 06/21/2021 1:36 PM CDT [facility] MONOCYTE ABSOLUTE 0.50 0.10 - 1.30 K/uL 06/21/2021 1:36 PM CDT [facility]OR[facility]ORY SERVICES [facility] EOSINOPHIL ABSOLUTE 0.30 0.00 - 0.70 K/uL 06/21/2021 1:36 PM CDT [facility]OR[facility] SERVICES [facility] BASOPHILS ABSOLUTE 0.00 0.00 - 0.20 K/uL 06/21/2021 1:36 PM CDT [facility] Blood Collection / Unknown 06/21/2021 11:20 AM CDT 06/21/2021 1:28 PM CDT Nargis Guy MD HEMATOLOGY ORDERABLES Final Resu lt [facility] CLIA# [id number] [place] [address] * (ABNORMAL) COMPREHENSIVE METABOLIC PANEL (06/21/2021 11:20 AM CDT) Pathologist [facility] SODIUM 137 136 - 145 mmol/L 06/21/2021 2:02 PM CDT [facility] POTASSIUM 4.3 3.4 - 5.1 mmol/L 06/21/2021 2:02 PM CDT [facility] CHLORIDE 102 98 - 107 mmol/L 06/21/2021 2:02 PM CDT [facility] CO2 25 22 - 29 mmol/L 06/21/2021 2:02 PM CDT [facility] CALCIUM 9.2 8.6 - 10.4 mg/dL 06/21/2021 2:02 PM CDT [facility] BUN 11 6 - 20 mg/dL 06/21/2021 2:02 PM CDT [facility] CREATININE 0.90 0.51 - 0.95 mg/dL 06/21/2021 2:02 PM CDT [facility] GLUCOSE 130(H) 74 - 99 mg/dL 06/21/2021 2:02 PM CDT [facility] TOTAL PROTEIN 6.6 6.3 - 8.7 g/dL 06/21/2021 2:02 PM T [facility] ALBUMIN 2.8(L) 3.5 - 5.2 g/dL 06/21/2021 2:02 PM T [facility] BILIRUBIN TOTAL 0.2(L) 0.3 - 1.2 mg/dL 06/21/2021 2:02 PM T [facility] ALKALINE PHOSPHATASE 120 40 - 150 U/L 06/21/2021 2:02 PM T [facility] AST 27 0 - 33 U/L 06/21/2021 2:02 PM [facility] ALT 23 0 - 33 U/L 06/21/2021 2:02 PM T [facility] GFR >60 mL/min/1.7 3 sq meter 06/21/2021 2:02 PM T [facility] Comment: eGFR has not been [...] 3 sq meter 06/21/2021 2:02 PM CDT [facility] ANION GAP 10 8 - 16 mmol/L 06/21/2021 2:02 PM T [facility] Blood Collection / Unknown 06/21/2021 11:20 AM CDT 06/21/2021 1:28 PM CDT us Nargis Guy MD CHEMISTRY ORDERABLES Final Resul t [facility] CLIA# [id number] [place] [address] documented in this encounter Visit Diagnoses Not on filedocumented in this encounter
--- OUTSIDE RECORDS SUMMARY | 2025-06-21 15:36 | XMS_ITS | Clinical Summary ---
Author Organization [facility] Address [facility] [place] [address] Care Team Providers Care Ditch Repairer Name Role Phone Unavailable Primary Care Provider [...] Screening with HPV 1991 Mammogram Screening 2001 Pneumococcal Vaccine: 50+ Ye ars (1 of 1 - PCV) 2011 Zoster Vaccines (1 of 2) 2011 COVID-19 Vaccine (2023-2 5 season) 2024 RSV Immunization or 60+ Years (1 [...]
--- OUTSIDE RECORDS SUMMARY | 2025-06-21 15:36 | XMS_ITS | Encounter Summary ---
Author Organization [facility] Address [address] [place] [address] Care Team Providers Care Rural Carrier Associate Name Role Phone Karime Aguilera RN, Haresh K MD Primary Care Provider Reason for Visit * Reason Onset Date Comments Question 10/29/2023 Encounter Details Date Type Department Care Team (Late st Contact Info) Description 10/29/2023 Telephone [facility] [address] [place] [address] Christy Khan MD [address] [facility] [address] [place] [address] Question Social History Tobacco Use Types Packs/Day Years Used Date Smoking Tobacco: Every Day Cigarettes Smokeless Tobacco: Never Alcohol Use Standard Drinks/Week Comments Yes 0 (1 standard drink = 0.6 oz pur e alcohol) occ Comments No Sex and Gender Information Value Date Recorded Sex Assigned at Not on file Legal Sex Female 2:53 PM CDT Gender Identity Not on file Sexual Orientation Not on file documented as of this encounter Miscellaneous Notes * Telephone Encounter - Yesenia Shin RN - 10/29/2023 1:16 PM SHANK STAPLER RN returned pt call & gathered further [...] pt's provider MD Alonso of above issues. K STAPLER * Telephone Encounter - Ferny Pierre - 10/29/2023 12:40 PM CST Patient called stating she has a potential yeast infection and wanted to see about getting a prescription. Offered patient an appt, she preferred Dr Khan, put her down for next available on 11/26. K STAPLER documented in this encounter Plan of Treatment Not on file documented as of this encounter Visit Diagnoses Not on filedocumented in this encounter Care Teams Rural Carrier Associate Relationship Specialty Start Date End Date Gurvinder Renteria MD [address] [place] [address] PCP - General 01/01/22 Karime Aguilera, RN 05/07/18 documented as of this encounter
--- OUTSIDE RECORDS SUMMARY | 2025-06-21 15:36 | XMS_ITS | Encounter Summary ---
Author Organization [facility] Address [address] [place] [address] Care Team Providers Care Manager Endoscopy Name Role Phone Unavailable Primary Care Provider Unavailabl e Encounter Details Date Type Department Care Team (Late st Contact Info) Description 06/04/2021 Lab Requisition [facility] Laboratory Services [address] [place] [address] [place] [address] [place] [address] Social History Tobacco Use Types [...] - 30 mm/Hr 06/04/2021 9:54 AM CDT [facility] Blood Collection / Unknown 06/04/2021 4:55 AM CDT 06/04/2021 9:41 AM CDT us Nargis Guy MD HEMATOLOGY ORDERABLES Final Resu lt [facility] CLIA# [id number] [place] [address] * (ABNORMAL) RETICULOCYTES (06/04/2021 4:55 AM CDT) RETICULOCYTES 3.2(H) 0.4 - 2.0 % 06/04/2021 9:49 AM CDT [facility] IMMATURE RETIC FRACTION 0.5 % 06/04/2021 9:49 AM CDT [facility] RETICULOCYTE, ABSOLUTE 0.1121 0.0250 - 0.1480 10e6/uL 06/04/2021 9:49 AM CDT [facility] Blood Collection / Unknown 06/04/2021 4:55 AM CDT 06/04/2021 9:41 AM CDT us Nargis Guy MD HEMATOLOGY ORDERABLES Final Resu lt [facility] [id number] [place] [address] * (ABNORMAL) PREALBUMIN (06/04/2021 4:55 AM CDT) Pathologist [facility] PREALBUMIN 13(L) 20 - 40 mg/dL 06/04/2021 2:28 PM CDT [facility] Blood Collection / Unknown 06/04/2021 4:55 AM CDT 06/04/2021 9:42 AM CDT Nargis Guy MD CHEMISTRY ORDERABLES Final Resul t Performing Organization Address City/[facility]/ZIP Co de Phone Number [facility]# [id number] [address] [place] [address] * (ABNORMAL) IRON, TIBC, AND PERCENT SATURATION (06/04/2021 4:55 AM CDT) [facility] IRON 27(L) 37 - 145 ug/dL 06/04/2021 10:17 AM CDT [facility] TIBC 144(L) 265 - 497 ug/dL 06/04/2021 10:17 AM CDT [facility]ORAT[facility] [place] IRON % SATURATION 19(L) 20 - 55 % 06/04/2021 10:17 AM CDT [facility] Blood Collection / Unknown 06/04/2021 4:55 AM CDT 06/04/2021 9:42 AM CDT Nargis Guy MD CHEMISTRY ORDERABLES Final Resul t [facility] [id number] [place] [address] * HEMOGLOBIN A1C (06/04/2021 4:55 AM CDT) Pathologist [facility] HEMOGLOBIN A1C 5.5 <=5.6 % 06/04/2021 10:29 AM CDT [facility] EST. AVG GLUCOSE, A1C 111 mg/dL 06/04/2021 10:29 AM CDT [facility] Blood Collection / Unknown 06/04/2021 4:55 AM CDT 06/04/2021 10:10 AM CDT Narrative [facility] - 06/04/2021 10:29 AM CDT HGB A1C INTERPRETATION NORMAL: <5.7% PRE-DIABETES: 5.7 - 6.4% DIABETES: 6.5% OR GREATER Nargis Guy MD CHEMISTRY ORDERABLES Final Resul t [facility] CLIA# [id number] [place] [address] * (ABNORMAL) C-REACTIVE PROTEIN (06/04/2021 4:55 AM CDT) Pathologist [facility] CRP 99.3(H) <5.0 mg/L 06/04/2021 10:17 AM CDT [facility] Blood Collection / Unknown 06/04/2021 4:55 AM CDT 06/04/2021 9:42 AM CDT Nargis Guy MD CHEMISTRY ORDERABLES Final Resul t [facility] CLIA# [id number] [place] [address] * (ABNORMAL) CBC WITH DIFFERENTIAL (06/04/2021 4:55 AM CDT) WBC 5.7 4.5 - 10.5 K/uL 06/04/2021 9:49 AM CDT [facility] RBC 3.55(L) 3.90 - 4.90 M/uL 06/04/2021 9:49 AM CDT [facility] [employer] [place] HEMOGLOBIN 10.2(L) 11.8 - 14.8 g/dL 06/04/2021 9:49 AM CDT [facility] LAB[facility]AT[facility] HEMATOCRIT 31.4(L) 35.5 - 44.0 % 06/04/2021 9:49 AM CDT [facility] LABORATORY [facility] MCV 88.5 82.0 - 99.0 fL 06/04/2021 9:49 AM CDT [facility] LABORATORY SERVICES [facility] MCH 28.8 27.8 - 34.5 pg 06/04/2021 9:49 AM CDT [facility] LAB[facility]ATORY [facility] MCHC 32.6 32.5 - 35.5 g/dL 06/04/2021 9:49 AM CDT [facility]ORY [facility] RDW 15.5(H) 11.5 - 14.5 % 06/04/2021 9:49 AM CDT [facility] LABORATORY [facility] PLATELETS 288 160 - 420 K/uL 06/04/2021 9:49 AM CDT [facility]ORY [facility] MPV 8.5(L) 8.7 - 12.7 fL 06/04/2021 9:49 AM CDT [facility] LAB[facility]ATORY [facility] NEUTROPHILS 53 % 06/04/2021 9:49 AM CDT [facility]ATORY [facility] LYMPHOCYTES 33 % 06/04/2021 9:49 AM CDT [facility]ORY [facility] MONOCYTES 10 % 06/04/2021 9:49 AM CDT [facility]ATORY [facility] EOSINOPHILS 4 % 06/04/2021 9:49 AM CDT [facility]ORY [facility] BASOPHILS 1 % 06/04/2021 9:49 AM CDT [facility]ORY [facility] NEUTROPHIL ABSOLUTE 3.00 1.90 - 7.00 K/uL 06/04/2021 9:49 AM CDT [facility] LABORATORY [facility] LYMPHOCYTE ABSOLUTE 1.90 0.70 - 4.50 K/uL 06/04/2021 9:49 AM CDT [facility] LAB[facility]ATORY [facility] MONOCYTE ABSOLUTE 0.50 0.10 - 1.30 K/uL 06/04/2021 9:49 AM CDT [facility] LAB[facility]ATORY [facility] EOSINOPHIL ABSOLUTE 0.20 0.00 - 0.70 K/uL 06/04/2021 9:49 AM CDT [facility]ORAT[facility] [place] BASOPHILS ABSOLUTE 0.10 0.00 - 0.20 K/uL 06/04/2021 9:49 AM CDT [facility] Blood Collection / Unknown 06/04/2021 4:55 AM CDT 06/04/2021 9:41 AM CDT Nargis Guy MD HEMATOLOGY ORDERABLES Final Resu lt [facility] CLIA# [id number] [facility] [facility] [place] [address] * (ABNORMAL) COMPREHENSIVE METABOLIC PANEL (06/04/2021 4:55 AM CDT) SODIUM 143 136 - 145 mmol/L 06/04/2021 10:17 AM CDT [facility] POTASSIUM 4.0 3.4 - 5.1 mmol/L 06/04/2021 10:17 AM CDT [facility] [employer] [place] CHLORIDE 107 98 - 107 mmol/L 06/04/2021 10:17 AM CDT [facility] CO2 24 22 - 29 mmol/L 06/04/2021 10:17 AM T [facility] CALCIUM 8.3(L) 8.6 - 10.4 mg/dL 06/04/2021 10:17 AM CDT [facility] BUN 8 6 - 20 mg/dL 06/04/2021 10:17 AM CDT [facility] CREATININE 1.01(H) 0.51 - 0.95 mg/dL 06/04/2021 10:17 AM CDT [facility] [place] GLUCOSE 105(H) 74 - 99 mg/dL 06/04/2021 10:17 AM T [facility]OR[facility] [place] TOTAL PROTEIN 5.7(L) 6.3 - 8.7 g/dL 06/04/2021 10:17 AM CDT [facility] [place] ALBUMIN 2.5(L) 3.5 - 5.2 g/dL 06/04/2021 10:17 AM CDT [facility] BILIRUBIN TOTAL 0.2(L) 0.3 - 1.2 mg/dL 06/04/2021 10:17 AM T [facility] ALKALINE PHOSPHATASE 112 40 - 150 U/L 06/04/2021 10:17 AM T [facility] AST 38(H) 0 - 33 U/L 06/04/2021 10:17 AM CDT [facility] ALT 31 0 - 33 U/L 06/04/2021 10:17 AM T [facility] GFR 56 mL/min/1.7 3 sq meter 06/04/2021 10:17 AM T [facility] Comment: eGFR has not been validated [...] 3 sq meter 06/04/2021 10:17 AM CDT [facility] ANION GAP 12 8 - 16 mmol/L 06/04/2021 10:17 AM T [facility] Blood Collection / Unknown 06/04/2021 4:55 AM CDT 06/04/2021 9:42 AM CDT us Nargis Guy MD CHEMISTRY ORDERABLES Final Resul t [facility] CLIA# [id number] [address] documented in this encounter Visit Diagnoses Not on filedocumented in this encounter
--- OUTSIDE RECORDS SUMMARY | 2025-06-21 15:36 | XMS_ITS | Encounter Summary ---
Author Organization [facility] Address [address] [place] [address] Care Team Providers Care Trailer Assembler Name Role Phone Unavailable Primary Care Provider Unavailabl e Encounter Details Date Type Department Care Team (Late st Contact Info) Description 06/21/2021 Lab Requisition [facility] Laboratory Services [address] [place] [address] [place] [address] [place] [address] Social History Tobacco Use Types [...] COLI(A) HAKEEM MCG/ML 06/23/2021 8:32 AM CDT [facility] Urine URINE SPECIMEN OBTAINED BY CLEAN CATCH [...] MICROBIOLOGY - GENERAL ORDERABLE S Final Result [facility]# [id number] [facility] [place] [address] * (ABNORMAL) URINALYSIS WITH REFLEX CULTURE (06/20/2021 8:08 PM CDT) COLOR UA Yellow Pale to Dark Yellow 06/21/2021 11:06 AM CDT [facility] [place] [facility] [employer] [facility] CLARITY UA Slightly Cloudy(A) Clear 06/21/2021 11:06 AM CDT [facility] SPECIFIC GRAVITY UA 1.012 1.003 - 1.035 06/21/2021 11:06 AM CDT [facility] PH UA 5.0 5.0 - 8.0 06/21/2021 11:06 AM CDT [facility] LEUKOCYTE ESTERASE UA 1+(A) Negative 06/21/2021 11:06 AM [facility] NITRITE UA Positive(A) Negative 06/21/2021 11:06 AM [facility] PROTEIN UA Negative Negative 06/21/2021 11:06 AM T [facility] GLUCOSE UA 1+(A) Negative 06/21/2021 11:06 AM T [facility] KETONES UA Negative Negative 06/21/2021 11:06 AM T [facility] UROBILINOGEN UA Normal <2.0 mg/dL 11:06 AM T [facility] BILIRUBIN UA Negative Negative 06/21/2021 11:06 AM T [facility] BLOOD UA 1+(A) Negative 06/21/2021 11:06 AM [facility] WBC UA 11-25(A) 0 - 2 /hpf 06/21/2021 11:06 AM T [facility] RBC UA 6-10(A) 0 - 2 /hpf 06/21/2021 11:06 AM CDT [facility] BACTERIA UA 2+(A) Negative /hpf 06/21/2021 11:06 AM T [facility] EPITHELIAL CELLS, URINE 6-10(A) 0 - 5 /hpf 06/21/2021 11:06 AM [facility] HYALINE CAST None Seen None Seen, 0-2 /lpf 06/21/2021 11:06 AM [facility] Urine URINE SPECIMEN OBTAINED BY CLEAN CATCH PROCEDURE / Unknown Collection / Unknown 06/20/2021 8:08 PM CDT 06/21/2021 10:49 AM [facility] - 06/21/2021 11:06 AM CDT Based on results, a urine culture has been reflexed. us Nargis Guy MD URINE ORDERABLES Final Result [facility] CLIA# [id number] [place] [address] documented in this encounter Visit Diagnoses Not on filedocumented in this encounter
--- OUTSIDE RECORDS SUMMARY | 2025-06-21 15:36 | XMS_ITS | Clinical Summary ---
Author Organization [facility] Address [address] [place] [address] Care Team Providers Care Inside Wirer Name Role Phone Karime Aguilera RN, Haresh K MD Primary Care Provider [phone] Source Comments [facility],non-owned Affiliates and Associated Physician Practices is amultiple site organization consisting of ambulatory clinics and hospital sitesin [place], [place], [place] and [place]. This disclosure is being madepursuant to the Care Everywhere program and may not contain all information available regarding this patient. Last updated 18.[facility] Allergies Active Allergy Reactions Criticality Noted Date Comments Aspirin Nausea and/or Vomiting High 10/31/2016 Ticagrelor Shortness of Breath High 05/04/2018 Codeine GI Discomfort 03/03/2018 Morphine Swelling 03/03/2018 Of uvula Medications * This document contains information received from the source organization and may not represent a complete record from that organization. * Be aware that medications may not be up to date on this document. Alwaysverify current medications with the patient. rOPINIRole (REQUIP) 3 MG tablet TK 1 T PO hs 6 8 Active nicotine polacrilex (COMMIT) 4 MG lozengeIndicat ions:Nicotine Dependence Reasons: Nicotine Addiction 3 8 Active naproxen (NAPROSYN) 500 MG tablet TK 1 T PO TID AFTER MEALS 6 8 Active insulin syringe-needle (BD ULTRAFINE II) 31G X 5/16 0.5 ML syringe U TID 6 8 Active lisinopril (PRINIVIL; ZESTRIL) 20 MG tablet TK 1 T PO D 6 8 Active metFORMIN (GLUCOPHAGE) 500 MG tablet TK 1 T PO BID 6 8 Active LANTUS vial ADM 20 UNI SC BID 6 8 Active gabapentin (NEURONTIN) 300 MG capsule TK 1 C PO TID WC 6 8 Active citalopram (CELEXA) 40 MG tablet TK 1 T PO D PRN 6 8 Active fluticasone-sa lmeterol 232-14 MCG/ACT inhaler INL 2 PFS PO BID UTD 6 8 Active atorvastatin (LIPITOR) 40 MG tablet TK 1 T PO QD 5 8 Active albuterol (PROVENTIL;LUIS CARLOS TOLIN) (2.5 MG/3ML) 0.083% nebulizer solution USE 1 VIAL IN NEB TID UTD 6 8 Active VENTOLIN HFA 108 (90 BASE) MCG/ACT inhaler INL 2 PFS PO Q 4 H PRN 3 8 Active insulin lispro protamine & lispro (HUMALOG MIX 75/25) vial Inject 20 Units subcutaneously once daily Active docusate sodium (COLACE) 100 MG capsule Take 1 capsule by mouth 2 times daily 60 capsule 1 8 Active Blood Glucose Monitoring Suppl ([employer] VERIO FLEX SYSTEM) w/Device KIT 2 Active TRULICITY 1.5 MG/0.5ML injection 2 Active ergocalciferol (DRISDOL) 1.25 MG (93554 UT) capsule ergocalciferol (vitamin D2) 1,250 mcg (50,000 unit) capsule TAKE 1 CAPSULE BY MOUTH WEEKLY Active famotidine (PEPCID) 40 MG tablet 2 Active gabapentin (NEURONTIN) 800 MG tablet 2 Active ONETOUCH VERIO test strip 2 Active hydroCHLOROthi azide (HYDRODIURIL) 25 MG tablet 2 Active HYDROcodone-ac etaminophen (NORCO) 5-325 MG tablet 2 Active insulin lispro (HUMALOG;ADMEL OG) 100 UNIT/ML pen USE PER SLIDING SCALE PROTOCOL. 2 PENS MUST LAST 90 DAYS 1 Active venlafaxine XR 24hr (EFFEXOR XR) 75 MG capsule 2 Active SUMAtriptan (IMITREX) 50 MG tablet 1 Active QUEtiapine (SEROQUEL) 50 MG tablet Take 50 mg by mouth at bedtime 2 Active oxybutynin CR 24hr (DITROPAN-XL) 10 MG tablet Take 10 mg by mouth once daily Active ibuprofen (MOTRIN) 600 MG tablet Take 1 (one) tablet by mouth every 6 hours as needed for Pain 30 tablet 2 Active acetaminophen (TYLENOL) 325 MG tablet Take 2 (two) tablets by mouth every 6 hours as needed for Fever or Pain Maximum allowable Acetaminophen amount = 4 Grams (4000 mg) / 24 hours. 30 tablet 2 Active triamcinolone acetonide (Kenalog) 0.1 % ointmentIndica tions:Stasis dermatitis of both legs Apply to affected areas over legs up to twice daily as needed for rash/itch. Avoid on face/armpits/groin . Limit use to up to 2 weeks per month. 30 day supply. 454 g 1 4 Active nitrofurantoin monohyd macro crystals (Macrobid) 100 MG capsule Take 1 (one) capsule by mouth 2 times daily with morning and evening meal 14 capsule 5 Active Active Problems Problem Noted Date Diagnosed Date Vulvar lesion 03/15/2022 Pre-op testing 05/07/2018 HGSIL (high grade squamous i ntraepithelial lesion) on Pap smear of cervix 05/07/2018 Endometrium, hyperplasia 05/07/2018 S/P vaginal hysterectomy 05/07/2018 Immunizations Immunization Administration Dates Next Due FLU VACCINE QUAD [...] 55 04/04/2022 9:18 AM CDT Temperature 36.4 C (97.5 F) 04/04/2022 8:55 AM CDT Respiratory Rate 16 04/04/2022 9:18 AM CDT Oxygen Saturation 100% 04/04/2022 9:18 AM CDT Inhaled Oxygen Concentration - - Weight 155.1 kg (342 lb) 03/24/2024 2:20 PM CDT Height 160 cm (5' 3) 03/24/2024 2:20 PM CDT Body Mass Index [...] 50+ (1 of 2 - PCV) 1980 ZOSTER VACCINE (1 of 2) 2011 MAMMOGRAM 02/07/2020 02/06/2018 (Done Outside Per Patient) Respiratory Syncytial Virus (RSV) Vaccine Pt: or over 60 yrs (1 - Risk 60-74 years 1-dose series) 2021 COVID-19 VACCINE (1 - 2023- season) 2024 DEPRESSION SCREENING 11/17/2024 SCREENING FOR DIABETES 05/30/2025 , 05/30/2022, 05/30/2022, Additional history exists INFLUENZA VACCINE (#1) 2025 09/08/2018, 2016 HEPATITIS B VACCINE Aged Out No longe r eligible based on patient's age to complete this topic HIB VACCINE Aged Out No longer eligi ble based on patient's age to complete this topic HPV VACCINE Aged Out No longer eligi ble based on patient's age to complete this topic MENINGOCOCCAL (Group B) VACCINE SHARED DECISION-MAKING Aged Out No longer eligible based on patient's age to complete this topic MENINGOCOCCAL GROUPS A/C/Y/W VACCINE Aged Out No longer eligible based on patient's age to complete this topic Procedures Procedure Name Priority Date/Time Associated Diagnosis Comments GLUCOSE - POINT OF CARE Routine 04/04/2022 8:36 AM CDT from Last 3 Months or Most Recently Relevant to Health Maintenance Results * GLUCOSE - POINT OF CARE (04/04/2022 8:36 AM CDT) [facility] Glucose WB/POC 84 70 - 106 mg/dL 04/04/2022 8:46 AM CDT [facility] Specimen Type Cap Fingerstick 2021 8:46 AM CDT [facility] Blood BLOOD SPECIMEN / Unknown 04/04/2022 8:36 AM CDT 04/04/2022 8:46 AM CDT Tin Khan MD LAB - POINT OF CARE ORDERAB LES Final Result [facility] [address] [place] [address] from Last 3 Months or Most Recently Relevant to Health Maintenance Insurance Advance Directives * Full Code (Latest Code Status on File) Date Activated Date Inactivated Comments 05/07/2018 11:05 AM 05/08/2018 2:57 PM Care Teams Inside Wirer Relationship Specialty Start Date End Date Gurvinder Renteria MD [address] [place] [address] PCP - General 01/01/22 Karime Aguilera, RN 05/07/18
--- OUTSIDE RECORDS SUMMARY | 2025-06-21 15:36 | XMS_ITS | Clinical Summary ---
Author Organization [facility] Address [address] [place] [address] Care Team Providers Care Police Judge Name Role Phone Unavailable Primary Care Provider [...] meter) OneTouch Verio Flex Meter Active Insulin [place], Disposable, (TRUEplus Pen Needle) 31 gauge x [...] 92 05/25/2021 9:52 PM CDT Temperature 37.3 C (99.2 F) 05/25/2021 7:33 PM CDT Respiratory Rate 18 05/25/2021 9:52 PM CDT Oxygen Saturation 97% 05/25/2021 9:47 PM CDT Inhaled Oxygen Concentration - - Weight 151.8 kg (334 lb 9.6 oz) 05/19/2021 8:03 AM CDT Height 160 cm (5' 3) 05/19/2021 5:48 AM CDT Body Mass Index 59.27 05/19/2021 5:48 AM CDT Plan of Treatment Health Maintenance Due Date Last Done Comments DIABETES ANNUAL FOOT EXAM 1979 DIABETES ANNUAL [...] 6 MONTHS 01/13/2022 07/13/2021, INFLUENZA VACCINE (#1) 2025 09/08/2018, 2016 Procedures Procedure Name Priority Date/Time Associated Diagnosis Comments HEMOGLOBIN A1C Routine 07/13/2021 6:30 AM CDT from Last 3 Months or Most Recently Relevant to Health Maintenance Results * (ABNORMAL) HEMOGLOBIN A1C (07/13/2021 6:30 AM CDT) HEMOGLOBIN A1C 6.2(H) <=5.6 % 07/13/2021 10:36 AM CDT [facility] [email or web address] [facility] EST. AVG GLUCOSE, A1C 131 mg/dL 07/13/2021 10:36 AM CDT [facility] [email or web address] [facility] Blood Collection / Unknown 07/13/2021 6:30 AM CDT 07/13/2021 10:06 AM CDT Narrative [facility] [email or web address] [facility] - 07/13/2021 10:36 AM CDT HGB A1C INTERPRETATION NORMAL: <5.7% PRE-DIABETES: 5.7 - 6.4% DIABETES: 6.5% OR GREATER Nargis Guy MD CHEMISTRY ORDERABLES Final Resul t [facility] Stacy HERNANDEZ# [id number] [place] [address] from Last 3 Months or Most Recently Relevant to Health Maintenance Insurance [employer] RX [employer] Medicare Part D [place] Advance Directives For more information, please contact: [phone] * Full Code (Latest Code Status on File) Date Activated Date Inactivated Comments 05/19/2021 12:52 PM 05/26/2021 12:57 AM
--- OUTSIDE RECORDS SUMMARY | 2025-06-21 15:36 | XMS_ITS | Encounter Summary ---
Author Organization [facility] Address [address] [place] [address] Care Team Providers Care Decay Control Operator Name Role Phone Unavailable Primary Care Provider Unavailabl e Encounter Details Date Type Department Care Team (Late st Contact Info) Description 05/18/2021 Lab Requisition [facility] Laboratory Services [address] [place] [address] [place] [address] [place] [address] Social History Tobacco Use Types [...] - 145 mmol/L 05/18/2021 8:[address] [facility] POTASSIUM 5.7(H) 3.4 - 5.1 mmol/L 05/18/2021 8:44 AM CDT [facility] CHLORIDE 101 98 - 107 mmol/L 05/18/2021 8:44 AM CDT [facility] CO2 24 22 - 29 mmol/L 05/18/2021 8:44 AM T [facility] CALCIUM 8.7 8.6 - 10.4 mg/dL 05/18/2021 8:44 AM CDT [facility] BUN 58(H) 6 - 20 mg/dL 05/18/2021 8:44 AM T [facility] CREATININE 3.20(H) 0.51 - 0.95 mg/dL 05/18/2021 8:44 AM T [facility] GLUCOSE 102(H) 74 - 99 mg/dL 05/18/2021 8:44 AM T [facility] GFR 15 mL/min/1.7 3 sq meter 05/18/2021 8:44 AM T [facility] Comment: eGFR has not been validated for [...] 3 sq meter 05/18/2021 8:44 AM CDT [facility] ANION GAP 14 8 - 16 mmol/L 05/18/2021 8:44 AM T [facility] Blood Collection / Unknown 05/18/2021 4:57 AM CDT 05/18/2021 8:11 AM CDT us Nargis Guy MD CHEMISTRY ORDERABLES Final Resul t [facility] CLIA# [id number] [place] [address] documented in this encounter Visit Diagnoses Not on filedocumented in this encounter
--- OUTSIDE RECORDS SUMMARY | 2025-06-21 15:36 | XMS_ITS | Encounter Summary ---
Author Organization [facility] Address [address] [place] [address] Care Team Providers Care Yoke Presser Name Role Phone Unavailable Primary Care Provider Unavailabl e Encounter Details Date Type Department Care Team (Late st Contact Info) Description 07/09/2021 Lab Requisition [facility] Laboratory Services [address] [place] [address] [facility], External Provider [address] [place] [address] Social History Tobacco Use Types Packs/Day Years [...] 20 - 40 mg/dL [facility] / Unknown 07/09/2021 4:00 AM CDT 07/09/2021 6:02 AM CDT us External Provider [facility] CHEMISTRY ORDERABLES Jennie inocencio Result [facility] CLIA# [id number] [address] [facility] [place] [address] * (ABNORMAL) CBC WITH DIFFERENTIAL (07/09/2021 4:00 AM CDT) WBC 7.3 4.5 - 10.5 K/uL 07/09/2021 6:20 AM CDT [facility] RBC 3.75(L) 3.90 - 4.90 M/uL 07/09/2021 6:20 AM CDT [facility] HEMOGLOBIN 10.0(L) 11.8 - 14.8 g/dL 07/09/2021 6:20 AM CDT [facility] HEMATOCRIT 31.5(L) 35.5 - 44.0 % 07/09/2021 6:20 AM CDT [facility] MCV 83.8 82.0 - 99.0 fL 07/09/2021 6:20 AM CDT [facility] MCH 26.8(L) 27.8 - 34.5 pg 07/09/2021 6:20 AM CDT [facility] MCHC 31.9(L) 32.5 - 35.5 g/dL 07/09/2021 6:20 AM CDT [facility] RDW 15.7(H) 11.5 - 14.5 % 07/09/2021 6:20 AM CDT [facility] PLATELETS 374 160 - 420 K/uL 07/09/2021 6:20 AM CDT [facility] MPV 7.8(L) 8.7 - 12.7 fL 07/09/2021 6:20 AM CDT [facility] [employer] [facility] NEUTROPHILS 52 % 07/09/2021 6:20 AM CDT [facility] LABORATORY SERVICES [facility] LYMPHOCYTES 36 % 07/09/2021 6:20 AM CDT [facility] LABORATORY SERVICES [facility] MONOCYTES 6 % 07/09/2021 6:20 AM CDT [facility] LABORATORY SERVICES [facility] EOSINOPHILS 5 % 07/09/2021 6:20 AM CDT [facility] LABORATORY SERVICES [facility] BASOPHILS 1 % 07/09/2021 6:20 AM CDT [facility] LABORATORY SERVICES [facility] NEUTROPHIL ABSOLUTE 3.80 1.90 - 7.00 K/uL 07/09/2021 6:20 AM CDT [facility] LABORATORY SERVICES [facility] LYMPHOCYTE ABSOLUTE 2.60 0.70 - 4.50 K/uL 07/09/2021 6:20 AM CDT [facility] LABORATORY SERVICES [facility] MONOCYTE ABSOLUTE 0.50 0.10 - 1.30 K/uL 07/09/2021 6:20 AM CDT [facility] LABORATORY SERVICES [facility] EOSINOPHIL ABSOLUTE 0.40 0.00 - 0.70 K/uL 07/09/2021 6:20 AM CDT [facility] LABORATORY SERVICES [facility] BASOPHILS ABSOLUTE 0.10 0.00 - 0.20 K/uL 07/09/2021 6:20 AM CDT [facility] LABORATORY SERVICES [facility] Blood Collection / Unknown 07/09/2021 4:00 AM CDT 07/09/2021 6:02 AM CDT us External Provider [facility] HEMATOLOGY ORDERABLES Fin al Result [facility] LABORATORY [facility] CLIA# [id number] [address] [place] [address] * (ABNORMAL) COMPREHENSIVE METABOLIC PANEL (07/09/2021 4:00 AM CDT) SODIUM 137 136 - 145 mmol/L 07/09/2021 6:41 AM CDT [facility] LABORATORY [facility] POTASSIUM 4.4 3.4 - 5.1 mmol/L 07/09/2021 6:41 AM CDT [facility] LABORATORY [facility] CHLORIDE 101 98 - 107 mmol/L 07/09/2021 6:41 AM [facility] CO2 24 22 - 29 mmol/L 07/09/2021 6:41 AM [facility] CALCIUM 9.2 8.6 - 10.4 mg/dL 07/09/2021 6:41 AM [facility] BUN 15 6 - 20 mg/dL 07/09/2021 6:41 AM [facility] CREATININE 0.92 0.51 - 0.95 mg/dL 07/09/2021 6:41 AM [facility] GLUCOSE 129(H) 74 - 99 mg/dL 07/09/2021 6:41 AM [facility] TOTAL PROTEIN 6.5 6.3 - 8.7 g/dL 07/09/2021 6:41 AM [facility] ALBUMIN 3.1(L) 3.5 - 5.2 g/dL 07/09/2021 6:41 AM [facility] BILIRUBIN TOTAL <0.2(L) 0.2 - 1.1 mg/dL 07/09/2021 6:41 AM [facility] ALKALINE PHOSPHATASE 99 40 - 150 U/L 07/09/2021 6:41 AM [facility] AST 15 0 - 33 U/L 07/09/2021 6:41 AM [facility] ALT 11 0 - 33 U/L 07/09/2021 6:41 AM [facility] GFR >60 mL/min/1.7 3 sq meter 07/09/2021 6:41 AM [facility] Comment: eGFR has not been [...] 3 sq meter 07/09/2021 6:41 AM CDT [facility] LABORATORY SERVICES [facility] ANION GAP 12 8 - 16 mmol/L 07/09/2021 6:41 AM CDT [facility] LABORATORY [facility] Blood Collection / Unknown 07/09/2021 4:00 AM CDT 07/09/2021 6:02 AM CDT us External Provider [facility] CHEMISTRY ORDERABLES Jennie l Result [facility] [employer] [facility] CLIA# [id number] [place] [address] documented in this encounter Visit Diagnoses Not on filedocumented in this encounter
--- OUTSIDE RECORDS SUMMARY | 2025-06-21 15:36 | XMS_ITS | Encounter Summary ---
Author Organization [facility] Address [address] [place] [address] Care Team Providers Care Bottle Feeder Name Role Phone Unavailable Primary Care Provider Unavailabl e Encounter Details Date Type Department Care Team (Late st Contact Info) Description 05/16/2021 Lab Requisition [facility] Laboratory Services [address] [place] [address] [place] [address] [place] [address] Social History Tobacco Use Types [...] - 145 mmol/L 05/16/2021 12:14 PM CDT [facility] LABORAT[facility] POTASSIUM 4.9 3.4 - 5.1 mmol/L 05/16/2021 12:14 PM CDT [facility]OR[facility] CHLORIDE 99 98 - 107 mmol/L 05/16/2021 12:14 PM CDT [facility] CO2 23 22 - 29 mmol/L 05/16/2021 12:14 PM CDT [facility] CALCIUM 8.6 8.6 - 10.4 mg/dL 05/16/2021 12:14 PM CDT [facility] BUN 27(H) 6 - 20 mg/dL 05/16/2021 12:14 PM CDT [facility] CREATININE 2.53(H) 0.51 - 0.95 mg/dL 05/16/2021 12:14 PM CDT [facility] GLUCOSE 126(H) 74 - 99 mg/dL 05/16/2021 12:14 PM T [facility] GFR 19 mL/min/1.7 3 sq meter 05/16/2021 12:14 PM T [facility] Comment: eGFR has not [...] 3 sq meter 05/16/2021 12:14 PM CDT [facility] ANION GAP 14 8 - 16 mmol/L 05/16/2021 12:14 PM CDT [facility] Blood 05/16/2021 3:00 AM CDT 05/16/2021 11:44 AM CDT us Nargis Guy MD CHEMISTRY ORDERABLES Final Resul t [facility] CLIA# [id number] [address] [place] [address] documented in this encounter Visit Diagnoses Not on filedocumented in this encounter
--- OUTSIDE RECORDS SUMMARY | 2025-06-21 15:36 | XMS_ITS | Encounter Summary ---
Author Organization [facility] Address [address] [place] [address] Care Team Providers Care Hat And Cap Sewer Name Role Phone Unavailable Primary Care Provider Unavailabl e Encounter Details Date Type Department Care Team (Late st Contact Info) Description 07/08/2021 Lab Requisition [facility] Laboratory Services [address] [place] [address] [place] [address] [place] [address] Social History Tobacco Use Types [...] - 10.5 K/uL 07/08/2021 7:[address] [facility] RBC 3.47(L) 3.90 - 4.90 M/uL 07/08/2021 7:[address] [facility] HEMOGLOBIN 9.4(L) 11.8 - 14.8 g/dL 07/08/2021 7:17 [facility] HEMATOCRIT 29.2(L) 35.5 - 44.0 % 07/08/2021 7:[address] [facility] MCV 84.2 82.0 - 99.0 fL 07/08/2021 7:[address] [facility] MCH 27.1(L) 27.8 - 34.5 pg 07/08/2021 7:17 [facility] MCHC 32.1(L) 32.5 - 35.5 g/dL 07/08/2021 7:17 AM [facility] RDW 15.8(H) 11.5 - 14.5 % 07/08/2021 7:[address] [facility] PLATELETS 368 160 - 420 K/uL 07/08/2021 7:17 AM [facility] MPV 7.6(L) 8.7 - 12.7 fL 07/08/2021 7:[address] [facility] NEUTROPHILS 55 % 07/08/2021 7:[address] [facility] LYMPHOCYTES 32 % 07/08/2021 7:[address] [facility] SERVICES [facility] MONOCYTES 7 % 07/08/2021 7:[address] [facility] EOSINOPHILS 5 % 07/08/2021 7:[address] [facility] BASOPHILS 1 % 07/08/2021 7:[address] [facility] NEUTROPHIL ABSOLUTE 3.50 1.90 - 7.00 K/uL 07/08/2021 7:[address] [facility] LYMPHOCYTE ABSOLUTE 2.00 0.70 - 4.50 K/uL 07/08/2021 7:[address] [facility] MONOCYTE ABSOLUTE 0.50 0.10 - 1.30 K/uL 07/08/2021 7:[address] [facility] SERVICES [facility] EOSINOPHIL ABSOLUTE 0.30 0.00 - 0.70 K/uL 07/08/2021 7:[address] [facility] BASOPHILS ABSOLUTE 0.00 0.00 - 0.20 K/uL 07/08/2021 7:[address] [facility] Blood Collection / Unknown 07/08/2021 5:30 AM CDT 07/08/2021 6:13 AM CDT Nargis Guy MD HEMATOLOGY ORDERABLES Final Resu lt [facility] CLIA# [id number] [id number] [place] [address] * (ABNORMAL) COMPREHENSIVE METABOLIC PANEL (07/08/2021 5:30 AM CDT) SODIUM 137 136 - 145 mmol/L 07/08/2021 7:[address] [facility] POTASSIUM 4.2 3.4 - 5.1 mmol/L 07/08/2021 7:[address] [facility] CHLORIDE 102 98 - 107 mmol/L 07/08/2021 7:[address] [facility] CO2 24 22 - 29 mmol/L 07/08/2021 7:[address] [facility] CALCIUM 8.9 8.6 - 10.4 mg/dL 07/08/2021 7:[address] [facility] BUN 12 6 - 20 mg/dL 07/08/2021 7:[address] [facility] CREATININE 0.87 0.51 - 0.95 mg/dL 07/08/2021 7:[address] [facility] GLUCOSE 122(H) 74 - 99 mg/dL 07/08/2021 7:[address] [facility] TOTAL PROTEIN 6.0(L) 6.3 - 8.7 g/dL 07/08/2021 7:41 AM [facility] ALBUMIN 2.8(L) 3.5 - 5.2 g/dL 07/08/2021 7:41 AM [facility] BILIRUBIN TOTAL 0.2 0.2 - 1.1 mg/dL 07/08/2021 7:41 AM T [facility] ALKALINE PHOSPHATASE 92 40 - 150 U/L 07/08/2021 7:41 AM T [facility] AST 13 0 - 33 U/L 07/08/2021 7:41 AM [facility] ALT 10 0 - 33 U/L 07/08/2021 7:41 AM [facility] GFR >60 mL/min/1.7 3 sq meter 07/08/2021 7:41 AM [facility] Comment: eGFR has not been validated [...] 3 sq meter 07/08/2021 7:41 AM CDT [facility] ANION GAP 11 8 - 16 mmol/L 07/08/2021 7:41 AM T [facility] Blood Collection / Unknown 07/08/2021 5:30 AM CDT 07/08/2021 6:13 AM CDT us Nargis Guy MD CHEMISTRY ORDERABLES Final Resul t [facility] CLIA# [id number] [place] [address] documented in this encounter Visit Diagnoses Not on filedocumented in this encounter
--- OUTSIDE RECORDS SUMMARY | 2025-06-21 15:36 | XMS_ITS | Encounter Summary ---
Author Organization [facility] Address [address] [place] [address] Care Team Providers Care Customs Examiner Name Role Phone Unavailable Primary Care Provider Unavailabl e Encounter Details Date Type Department Care Team (Late st Contact Info) Description 07/02/2021 Lab Requisition [facility] Laboratory Services [address] [place] [address] [place] [address] [place] [address] Social History Tobacco Use Types [...] SEDIMENTATION RATE (07/02/2021 4:10 AM CDT) Pathologist [facility] [place] ESR (SEDIMENTATION RATE) 59(H) 0 - 30 mm/Hr 07/02/2021 9:26 AM CDT [facility] Blood Collection / Unknown 07/02/2021 4:10 AM CDT 07/02/2021 5:57 AM CDT Nargis Guy MD HEMATOLOGY ORDERABLES Final Resu lt Performing Organization Address City/[facility]/ZIP Co de Phone Number [facility] CLIA# [id number] [place] [address] * RETICULOCYTES (07/02/2021 4:10 AM CDT) Pathologist [facility] [place] RETICULOCYTES 2.0 0.4 - 2.0 % 07/02/2021 6:49 AM CDT [facility] IMMATURE RETIC FRACTION 0.5 % 07/02/2021 6:49 AM CDT [facility] RETICULOCYTE, ABSOLUTE 0.0681 0.0250 - 0.1480 10e6/uL 07/02/2021 6:49 AM CDT [facility] Blood Collection / Unknown 07/02/2021 4:10 AM CDT 07/02/2021 5:57 AM CDT Nargis Guy MD HEMATOLOGY ORDERABLES Final Resu lt Performing Organization Address City/[facility]/ZIP Co de Phone Number [facility] CLIA# [id number] [place] [address] * (ABNORMAL) PREALBUMIN (07/02/2021 4:10 AM CDT) PREALBUMIN 17(L) 20 - 40 mg/dL 07/02/2021 2:25 PM CDT [facility] Blood Collection / Unknown 07/02/2021 4:10 AM CDT 07/02/2021 5:57 AM CDT Nargis Guy MD CHEMISTRY ORDERABLES Final Resul t [facility] CLIA# [id number] [address] [place] [address] * (ABNORMAL) IRON, TIBC, AND PERCENT SATURATION (07/02/2021 4:10 AM CDT) IRON 36(L) 37 - 145 ug/dL 07/02/2021 7:20 AM CDT [facility] TIBC 161(L) 265 - 497 ug/dL 07/02/2021 7:20 AM CDT [facility] IRON % SATURATION 22 20 - 55 % 07/02/2021 7:20 AM CDT [facility] Blood Collection / Unknown 07/02/2021 4:10 AM CDT 07/02/2021 5:57 AM CDT Nargis Guy MD CHEMISTRY ORDERABLES Final Resul t [facility] CLIA# [id number] [place] [address] * (ABNORMAL) C-REACTIVE PROTEIN (07/02/2021 4:10 AM CDT) CRP 27.4(H) <5.0 mg/L 07/02/2021 7:20 AM CDT [facility] Blood Collection / Unknown 07/02/2021 4:10 AM CDT 07/02/2021 5:57 AM CDT Nargis Guy MD CHEMISTRY ORDERABLES Final Resul t [facility] CLIA# [id number] [place] [address] * (ABNORMAL) CBC WITH DIFFERENTIAL (07/02/2021 4:10 AM CDT) [facility] WBC 6.5 4.5 - 10.5 K/uL 07/02/2021 6:49 AM CDT [facility] RBC 3.48(L) 3.90 - 4.90 M/uL 07/02/2021 6:49 AM CDT [facility] HEMOGLOBIN 9.5(L) 11.8 - 14.8 g/dL 07/02/2021 6:49 AM CDT [facility] HEMATOCRIT 29.3(L) 35.5 - 44.0 % 07/02/2021 6:49 AM CDT [facility] MCV 84.1 82.0 - 99.0 fL 07/02/2021 6:49 AM CDT [facility] MCH 27.2(L) 27.8 - 34.5 pg 07/02/2021 6:49 AM CDT [facility] MCHC 32.3(L) 32.5 - 35.5 g/dL 07/02/2021 6:49 AM CDT [facility] RDW 15.8(H) 11.5 - 14.5 % 07/02/2021 6:49 AM CDT [facility] PLATELETS 386 160 - 420 K/uL 07/02/2021 6:49 AM CDT [facility] MPV 7.3(L) 8.7 - 12.7 fL 07/02/2021 6:49 AM CDT [facility] NEUTROPHILS 51 % 07/02/2021 6:49 AM CDT [facility] LYMPHOCYTES 36 % 07/02/2021 6:49 AM CDT [facility] SERVICES [facility] MONOCYTES 7 % 07/02/2021 6:49 AM CDT [facility] SERVICES [facility] EOSINOPHILS 5 % 07/02/2021 6:49 AM CDT [facility] SERVICES [facility] BASOPHILS 1 % 07/02/2021 6:49 AM CDT [facility] SERVICES [facility] NEUTROPHIL ABSOLUTE 3.30 1.90 - 7.00 K/uL 07/02/2021 6:49 AM CDT [facility] SERVICES [facility] LYMPHOCYTE ABSOLUTE 2.30 0.70 - 4.50 K/uL 07/02/2021 6:49 AM CDT [facility] SERVICES [facility] MONOCYTE ABSOLUTE 0.50 0.10 - 1.30 K/uL 07/02/2021 6:49 AM CDT [facility] SERVICES [facility] EOSINOPHIL ABSOLUTE 0.30 0.00 - 0.70 K/uL 07/02/2021 6:49 AM CDT [facility] SERVICES [facility] BASOPHILS ABSOLUTE 0.10 0.00 - 0.20 K/uL 07/02/2021 6:49 AM CDT [facility] SERVICES [facility] Blood Collection / Unknown 07/02/2021 4:10 AM CDT 07/02/2021 5:57 AM CDT us Nargis Guy MD HEMATOLOGY ORDERABLES Final Resu lt [facility] CLIA# [id number] [place] [address] * (ABNORMAL) COMPREHENSIVE METABOLIC PANEL (07/02/2021 4:10 AM CDT) SODIUM 139 136 - 145 mmol/L 07/02/2021 7:20 AM CDT [facility] POTASSIUM 4.5 3.4 - 5.1 mmol/L 07/02/2021 7:20 AM CDT [facility] CHLORIDE 104 98 - 107 mmol/L 07/02/2021 7:20 AM [facility] CO2 24 22 - 29 mmol/L 07/02/2021 7:20 AM [facility] CALCIUM 8.9 8.6 - 10.4 mg/dL 07/02/2021 7:20 AM [facility] BUN 12 6 - 20 mg/dL 07/02/2021 7:20 AM [facility] CREATININE 0.94 0.51 - 0.95 mg/dL 07/02/2021 7:20 AM [facility] GLUCOSE 111(H) 74 - 99 mg/dL 07/02/2021 7:20 AM [facility] TOTAL PROTEIN 6.0(L) 6.3 - 8.7 g/dL 07/02/2021 7:20 AM [facility] ALBUMIN 2.8(L) 3.5 - 5.2 g/dL 07/02/2021 7:20 AM [facility] BILIRUBIN TOTAL <0.2(L) 0.2 - 1.1 mg/dL 07/02/2021 7:20 AM [facility] ALKALINE PHOSPHATASE 102 40 - 150 U/L 07/02/2021 7:20 AM [facility] AST 21 0 - 33 U/L 07/02/2021 7:20 AM [facility] ALT 15 0 - 33 U/L 07/02/2021 7:20 AM [facility] GFR >60 mL/min/1.7 3 sq meter 07/02/2021 7:20 AM [facility] Comment: eGFR has not been validated [...] 3 sq meter 07/02/2021 7:20 AM CDT [facility] ANION GAP 11 8 - 16 mmol/L 07/02/2021 7:20 AM CDT [facility] Blood Collection / Unknown 07/02/2021 4:10 AM CDT 07/02/2021 5:57 AM CDT us Nargis Guy MD CHEMISTRY ORDERABLES Final Resul t [facility] CLIA# [id number] [place] [address] documented in this encounter Visit Diagnoses Not on filedocumented in this encounter
--- OUTSIDE RECORDS SUMMARY | 2025-06-21 15:36 | XMS_ITS | Encounter Summary ---
Author Organization [facility] Address [address] [place] [address] Care Team Providers Care Nurse Recruiter Name Role Phone Unavailable Primary Care Provider Unavailabl e Encounter Details Date Type Department Care Team (Late st Contact Info) Description 07/13/2021 Lab Requisition [facility] Laboratory Services [address] [place] [address] [place] [address] [place] [address] Social History Tobacco Use Types [...] % 07/13/2021 10:36 AM CDT [facility] EST. AVG GLUCOSE, A1C 131 mg/dL 07/13/2021 10:36 AM CDT [facility] Blood Collection / Unknown 07/13/2021 6:30 AM CDT 07/13/2021 10:06 AM CDT Narrative [facility] - 07/13/2021 10:36 AM CDT HGB A1C INTERPRETATION NORMAL: <5.7% PRE-DIABETES: 5.7 - 6.4% DIABETES: 6.5% OR GREATER Nargis Guy MD CHEMISTRY ORDERABLES Final Resul t [facility] CLIA# [id number] [place] [address] documented in this encounter Visit Diagnoses Not on filedocumented in this encounter
--- OUTSIDE RECORDS SUMMARY | 2025-06-21 15:36 | XMS_ITS | Encounter Summary ---
Author Organization [facility] Address [address] [place] [address] Care Team Providers Care Manager Logistic Name Role Phone Unavailable Primary Care Provider Unavailabl e Encounter Details Date Type Department Care Team (Late st Contact Info) Description 05/19/2021 Lab Requisition [facility] Laboratory Services [address] [place] [address] [facility], External Provider [address] [place] [address] Social History Tobacco Use Types Packs/Day Years [...] - 14.7 Seconds 05/19/2021 4:12 AM CDT [facility] INR 1.1 0.9 - 1.1 05/19/2021 4:12 AM CDT [facility] Blood Collection / Unknown 05/19/2021 3:20 AM CDT 05/19/2021 3:49 AM CDT External Provider [facility] HEMATOLOGY ORDERABLES Fin al Result [facility] CLIA# [id number] [place] [address] * (ABNORMAL) LACTIC ACID (05/19/2021 3:20 AM CDT) LACTIC ACID 4.5(H) <=2.0 mmol/L 05/19/2021 4:19 AM CDT [facility] Blood Collection / Unknown 05/19/2021 3:20 AM CDT 05/19/2021 3:49 AM CDT External Provider [facility] CHEMISTRY ORDERABLES Jennie l Result [facility] CLIA# [id number] [place] [address] * PTT (05/19/2021 3:20 AM CDT) PTT 23.8 23.1 - 37.1 seconds 05/19/2021 4:12 AM CDT [facility] Blood Collection / Unknown 05/19/2021 3:20 AM CDT 05/19/2021 3:49 AM CDT External Provider [facility] HEMATOLOGY ORDERABLES Fin al Result [facility] CLIA# [id number] [place] [address] * (ABNORMAL) CBC WITH DIFFERENTIAL (05/19/2021 3:20 AM CDT) WBC 26.7(H) 4.5 - 10.5 K/uL 05/19/2021 4:03 AM CDT [facility] SERVICES [facility] RBC 2.46(L) 3.90 - 4.90 M/uL 05/19/2021 4:03 AM CDT [facility] HEMOGLOBIN 6.9(LL) 11.8 - 14.8 g/dL 05/19/2021 4:03 AM CDT [facility] HEMATOCRIT 22.1(L) 35.5 - 44.0 % 05/19/2021 4:03 AM CDT [facility] MCV 89.7 82.0 - 99.0 fL 05/19/2021 4:03 AM CDT [facility] MCH 27.8 27.8 - 34.5 pg 05/19/2021 4:03 AM CDT [facility] MCHC 31.0(L) 32.5 - 35.5 g/dL 05/19/2021 4:03 AM CDT [facility] RDW 15.4(H) 11.5 - 14.5 % 05/19/2021 4:03 AM CDT [facility] PLATELETS 329 160 - 420 K/uL 05/19/2021 4:03 AM CDT [facility] MPV 8.8 8.7 - 12.7 fL 05/19/2021 4:03 AM CDT [facility] NEUTROPHILS 57 % 05/19/2021 4:03 AM CDT [facility] LYMPHOCYTES 30 % 05/19/2021 4:03 AM CDT [facility] MONOCYTES 10 % 05/19/2021 4:03 AM CDT [facility] EOSINOPHILS 2 % 05/19/2021 4:03 AM CDT [facility] BASOPHILS 0 % 05/19/2021 4:03 AM CDT [facility] NEUTROPHIL ABSOLUTE 15.30(H) 1.90 - 7.00 K/uL 05/19/2021 4:03 AM CDT [facility] LYMPHOCYTE ABSOLUTE 8.10(H) 0.70 - 4.50 K/uL 05/19/2021 4:03 AM CDT [facility] MONOCYTE ABSOLUTE 2.60(H) 0.10 - 1.30 K/uL 05/19/2021 4:03 AM CDT [facility] EOSINOPHIL ABSOLUTE 0.60 0.00 - 0.70 K/uL 05/19/2021 4:03 AM CDT [facility] BASOPHILS ABSOLUTE 0.10 0.00 - 0.20 K/uL 05/19/2021 4:03 AM CDT [facility] Blood Collection / Unknown 05/19/2021 3:20 AM CDT 05/19/2021 3:49 AM CDT us External Provider [facility] HEMATOLOGY ORDERABLES Fin al Result [facility] CLIA# [id number] [place] [address] * (ABNORMAL) COMPREHENSIVE METABOLIC PANEL (05/19/2021 3:20 AM CDT) SODIUM 134(L) 136 - 145 mmol/L 05/19/2021 4:26 AM CDT [facility] POTASSIUM 6.6(HH) 3.4 - 5.1 mmol/L 05/19/2021 4:26 AM CDT [facility] CHLORIDE 99 98 - 107 mmol/L 05/19/2021 4:26 AM CDT [facility] CO2 18(L) 22 - 29 mmol/L 05/19/2021 4:26 AM CDT [facility] CALCIUM 8.7 8.6 - 10.4 mg/dL 05/19/2021 4:26 AM [facility] BUN 64(H) 6 - 20 mg/dL 05/19/2021 4:26 AM [facility] CREATININE 4.16(H) 0.51 - 0.95 mg/dL 05/19/2021 4:26 AM [facility] GLUCOSE 280(H) 74 - 99 mg/dL 05/19/2021 4:26 AM [facility] TOTAL PROTEIN 6.6 6.3 - 8.7 g/dL 05/19/2021 4:26 AM [facility] ALBUMIN 2.5(L) 3.5 - 5.2 g/dL 05/19/2021 4:26 AM [facility] BILIRUBIN TOTAL 0.2(L) 0.3 - 1.2 mg/dL 05/19/2021 4:26 AM [facility] ALKALINE PHOSPHATASE 94 40 - 150 U/L 05/19/2021 4:26 AM [facility] AST 31 0 - 33 U/L 05/19/2021 4:26 AM [facility] ALT 19 0 - 33 U/L 05/19/2021 4:26 AM [facility] GFR 11 mL/min/1.7 3 sq meter 05/19/2021 4:26 AM [facility] Comment: eGFR has not been validated for [...] mL/min/1.7 3 sq meter 05/19/2021 4:26 AM [facility] ANION GAP 17(H) 8 - 16 mmol/L 05/19/2021 4:26 AM CDT [facility] Blood Collection / Unknown 05/19/2021 3:20 AM CDT 05/19/2021 3:49 AM CDT us External Provider [facility] CHEMISTRY ORDERABLES Jennie painter Result [facility] CLIA# [id number] [id number] [place] [address] documented in this encounter Visit Diagnoses Not on filedocumented in this encounter
--- OUTSIDE RECORDS SUMMARY | 2025-06-21 15:36 | XMS_ITS | Encounter Summary ---
Author Organization [facility] Address [address] [place] [address] Care Team Providers Care Advanced Manufacturing Associate Name Role Phone Unavailable Primary Care Provider Unavailabl e Encounter Details Date Type Department Care Team (Late st Contact Info) Description 05/17/2021 Lab Requisition [facility] Laboratory Services [address] [place] [address] [place] [address] [place] [address] Social History Tobacco Use Types [...] - 10.5 K/uL 05/17/2021 10:31 AM CDT [facility] SERVICES [facility] RBC 2.72(L) 3.90 - 4.90 M/uL 05/17/2021 10:31 AM CDT [facility] SERVICES [facility] HEMOGLOBIN 7.9(L) 11.8 - 14.8 g/dL 05/17/2021 10:31 AM CDT [facility] SERVICES [facility] HEMATOCRIT 23.6(L) 35.5 - 44.0 % 05/17/2021 10:31 AM CDT [facility] SERVICES [facility] MCV 86.6 82.0 - 99.0 fL 05/17/2021 10:31 AM CDT [facility] SERVICES [facility] MCH 28.9 27.8 - 34.5 pg 05/17/2021 10:31 AM CDT [facility] SERVICES [facility] MCHC 33.3 32.5 - 35.5 g/dL 05/17/2021 10:31 AM CDT [facility] SERVICES [facility] RDW 14.7(H) 11.5 - 14.5 % 05/17/2021 10:31 AM CDT [facility] SERVICES [facility] PLATELETS 188 160 - 420 K/uL 05/17/2021 10:31 AM CDT [facility] SERVICES [facility] MPV 8.8 8.7 - 12.7 fL 05/17/2021 10:31 AM CDT [facility] SERVICES [facility] NEUTROPHILS 59 % 05/17/2021 10:31 AM CDT [facility] SERVICES [facility] LYMPHOCYTES 21 % 05/17/2021 10:31 AM CDT [facility] SERVICES [facility] MONOCYTES 14 % 05/17/2021 10:31 AM CDT [facility] SERVICES [facility] EOSINOPHILS 5 % 05/17/2021 10:31 AM CDT [facility] SERVICES [facility] BASOPHILS 1 % 05/17/2021 10:31 AM CDT [facility] SERVICES [facility] NEUTROPHIL ABSOLUTE 5.80 1.90 - 7.00 K/uL 05/17/2021 10:31 AM CDT [facility] SERVICES [facility] LYMPHOCYTE ABSOLUTE 2.10 0.70 - 4.50 K/uL 05/17/2021 10:31 AM CDT [facility] SERVICES [facility] MONOCYTE ABSOLUTE 1.30 0.10 - 1.30 K/uL 05/17/2021 10:31 AM CDT [facility]ORATORY SERVICES - [facility] EOSINOPHIL ABSOLUTE 0.50 0.00 - 0.70 K/uL 05/17/2021 10:31 AM CDT [facility]ORY SERVICES - [facility] BASOPHILS ABSOLUTE 0.10 0.00 - 0.20 K/uL 05/17/2021 10:31 AM CDT [facility] LABORATORY [facility] Blood Collection / Unknown 05/17/2021 5:20 AM CDT 05/17/2021 10:01 AM CDT us Nargis Guy MD HEMATOLOGY ORDERABLES Final Resu lt [facility]ORY SERVICES [facility] CLIA# [id number] [place] [address] documented in this encounter Visit Diagnoses Not on filedocumented in this encounter
--- OUTSIDE RECORDS SUMMARY | 2025-06-21 15:36 | XMS_ITS | Encounter Summary ---
Author Organization [facility] Address [address] [place] [address] Care Team Providers Care Core Microarchitect Name Role Phone Murali Silva MD Primary Care Provider [phone] Karime Aguilera RN [facility] Gurvinder Stephens MD Primary Care Provider [phone] Reason for Visit * Reason Onset Date Comments Patient Requested Call 11/05/2021 Encounter Details Date Type Department Care Team (Late st Contact Info) Description 11/05/2021 Telephone [facility] [address] [place] [address] Christy Khan MD [address] [phone] Patient Requested Call Social History Tobacco Use [...] Pari Denton RN - 11/05/2021 12:15 PM MAJOR ASSEMBLER RN called patient. Pt stating she does not want to stand as her knees buckle. Pt made aware that office does have lower exam tables. Pt stating she is coming to the office visit in electric wheelchair and will also be accompanied by home health. Will also pass along to MD and emergency medical dispatcher IMANI Tesfaye R ASSEMBLER * Telephone Encounter - Holly Yates - 11/05/2021 12:08 PM CST Patient is requesting a call back to confirm accommodations for her appt. She recently had surgery and won't be able to get on a high table for her exam. Please advise: [phone] R ASSEMBLER documented in this encounter Plan of Treatment Not on file documented as of this encounter Visit Diagnoses Not on filedocumented in this encounter Care Teams Core Microarchitect Relationship Specialty Start Date End Date Murali Silva MD [address] [place] [address] PCP - General 03/03/18 12/31/21 Gurvinder Renteria MD [address] [place] [address] PCP - General 01/01/22 Karime Aguilera RN 05/07/18 documented as of this encounter
--- OUTSIDE RECORDS SUMMARY | 2025-06-21 15:36 | XMS_ITS | Encounter Summary ---
Author Organization [facility] Address [address] [place] [address] Care Team Providers Care Sheet Metal Superintendent Name Role Phone Unavailable Primary Care Provider Unavailabl e Encounter Details Date Type Department Care Team (Late st Contact Info) Description 07/12/2021 Lab Requisition [facility] Laboratory Services [address] [place] [address] [place] [address] [place] [address] Social History Tobacco Use Types [...] - 145 mmol/L 07/12/2021 11:37 AM [address] [facility]ORY SERVICES - [facility] POTASSIUM 4.2 3.4 - 5.1 mmol/L 07/12/2021 11:37 [facility] CHLOR[facility] 101 98 - 107 mmol/L 07/12/2021 11:37 AM [facility] CO2 22 22 - 29 mmol/L 07/12/2021 11:37 AM [facility] CALCIUM 9.3 8.6 - 10.4 mg/dL 07/12/2021 11:37 AM [facility] BUN 20 6 - 20 mg/dL 07/12/2021 11:37 AM [facility] CREATININE 1.26(H) 0.51 - 0.95 mg/dL 07/12/2021 11:37 AM [facility] GLUCOSE 121(H) 74 - 99 mg/dL 07/12/2021 11:37 AM [facility] TOTAL PROTEIN 6.9 6.3 - 8.7 g/dL 07/12/2021 11:37 AM [facility] ALBUMIN 3.3(L) 3.5 - 5.2 g/dL 07/12/2021 11:37 AM [facility] BILIRUBIN TOTAL 0.2 0.2 - 1.1 mg/dL 07/12/2021 11:37 AM [facility] ALKALINE PHOSPHATASE 101 40 - 150 U/L 07/12/2021 11:37 AM [facility] AST 17 0 - 33 U/L 07/12/2021 11:37 AM [facility] ALT 12 0 - 33 U/L 07/12/2021 11:37 AM [facility] GFR 43 mL/min/1.7 3 sq meter 07/12/2021 11:37 AM [facility] Comment: eGFR has [...] 3 sq meter 07/12/2021 11:37 AM CDT [facility] ANION GAP 14 8 - 16 mmol/L 07/12/2021 11:37 AM CDT [facility] Blood Collection / Unknown 07/12/2021 5:00 AM CDT 07/12/2021 11:05 AM CDT us Nargis Guy MD CHEMISTRY ORDERABLES Final Resul t [facility] CLIA# [id number] [place] [address] documented in this encounter Visit Diagnoses Not on filedocumented in this encounter
--- OUTSIDE RECORDS SUMMARY | 2025-06-21 15:36 | XMS_ITS | Encounter Summary ---
Author Organization [facility] Address [address] [place] [address] Care Team Providers Care Cooler Man Name Role Phone Unavailable Primary Care Provider Unavailabl e Encounter Details Date Type Department Care Team (Late st Contact Info) Description 07/19/2021 Lab Requisition [facility] Laboratory Services [address] [place] [address] [place] [address] [place] [address] Social History Tobacco Use Types [...] - 10.5 K/uL 07/19/2021 11:50 AM CDT [facility] LABORATORY [facility] RBC 3.66(L) 3.90 - 4.90 M/uL 07/19/2021 11:50 AM CDT [facility] LABORATORY [facility] HEMOGLOBIN 9.6(L) 11.8 - 14.8 g/dL 07/19/2021 11:50 AM CDT [facility] LABORATORY SERVICES [facility] HEMATOCRIT 30.5(L) 35.5 - 44.0 % 07/19/2021 11:50 AM CDT [facility] LABORATORY SERVICES [facility] MCV 83.5 82.0 - 99.0 fL 07/19/2021 11:50 AM CDT [facility] LABORATORY SERVICES [facility] MCH 26.4(L) 27.8 - 34.5 pg 07/19/2021 11:50 AM CDT [facility] LABORATORY SERVICES [facility] MCHC 31.6(L) 32.5 - 35.5 g/dL 07/19/2021 11:50 AM CDT [facility] LABORATORY [facility] RDW 15.6(H) 11.5 - 14.5 % 07/19/2021 11:50 AM CDT [facility] LABORATORY SERVICES [facility] PLATELETS 383 160 - 420 K/uL 07/19/2021 11:50 AM CDT [facility] LABORATORY SERVICES [facility] MPV 8.0(L) 8.7 - 12.7 fL 07/19/2021 11:50 AM CDT [facility] LABORATORY SERVICES [facility] NEUTROPHILS 52 % 07/19/2021 11:50 AM CDT [facility] LABORATORY SERVICES [facility] LYMPHOCYTES 36 % 07/19/2021 11:50 AM CDT [facility] LABORATORY SERVICES [facility] MONOCYTES 6 % 07/19/2021 11:50 AM CDT [facility] LABORATORY SERVICES [facility] EOSINOPHILS 5 % 07/19/2021 11:50 AM CDT [facility] LABORATORY SERVICES [facility] BASOPHILS 1 % 07/19/2021 11:50 AM CDT [facility] LABORATORY SERVICES [facility] NEUTROPHIL ABSOLUTE 3.80 1.90 - 7.00 K/uL 07/19/2021 11:50 AM CDT [facility] LABORATORY SERVICES [facility] LYMPHOCYTE ABSOLUTE 2.70 0.70 - 4.50 K/uL 07/19/2021 11:50 AM CDT [facility] LABORATORY [facility] MONOCYTE ABSOLUTE 0.50 0.10 - 1.30 K/uL 07/19/2021 11:50 AM CDT [facility] LABORATORY SERVICES [facility] EOSINOPHIL ABSOLUTE 0.30 0.00 - 0.70 K/uL 07/19/2021 11:50 AM CDT [facility] LABORATORY SERVICES [facility] BASOPHILS ABSOLUTE 0.10 0.00 - 0.20 K/uL 07/19/2021 11:50 AM CDT [facility] LABORATORY [facility] Blood Collection / Unknown 07/19/2021 3:23 AM CDT 07/19/2021 11:47 AM CDT Nargis Guy MD HEMATOLOGY ORDERABLES Final Resu lt [facility] CLIA# [id number] [place] [address] * (ABNORMAL) COMPREHENSIVE METABOLIC PANEL (07/19/2021 3:23 AM CDT) SODIUM 138 136 - 145 mmol/L 07/19/2021 12:19 PM CDT [facility] POTASSIUM 4.4 3.4 - 5.1 mmol/L 07/19/2021 12:19 PM CDT [facility] LABORATORY [facility] CHLORIDE 101 98 - 107 mmol/L 07/19/2021 12:19 PM CDT [facility] LABORATORY [facility] CO2 24 22 - 29 mmol/L 07/19/2021 12:19 PM CDT [facility] LABORATORY [facility] CALCIUM 9.2 8.6 - 10.4 mg/dL 07/19/2021 12:19 PM CDT [facility] LABORATORY [facility] BUN 18 6 - 20 mg/dL 07/19/2021 12:19 PM CDT [facility] LABORATORY [facility] CREATININE 0.98(H) 0.51 - 0.95 mg/dL 07/19/2021 12:19 PM CDT [facility] LABORATORY [facility] GLUCOSE 102(H) 74 - 99 mg/dL 07/19/2021 12:19 PM CDT [facility] TOTAL PROTEIN 6.5 6.3 - 8.7 g/dL 07/19/2021 12:19 PM T [facility] ALBUMIN 3.1(L) 3.5 - 5.2 g/dL 07/19/2021 12:19 PM [facility] BILIRUBIN TOTAL <0.2(L) 0.2 - 1.1 mg/dL 07/19/2021 12:19 PM [facility] ALKALINE PHOSPHATASE 96 40 - 150 U/L 07/19/2021 12:19 PM [facility] AST 12 0 - 33 U/L 07/19/2021 12:19 PM [facility] ALT 8 0 - 33 U/L 07/19/2021 12:19 PM [facility] GFR 58 mL/min/1.7 3 sq meter 07/19/2021 12:19 PM [facility] Comment: eGFR [...] 3 sq meter 07/19/2021 12:19 PM CDT [facility] ANION GAP 13 8 - 16 mmol/L 07/19/2021 12:19 PM T [facility] Blood Collection / Unknown 07/19/2021 3:23 AM CDT 07/19/2021 11:48 AM CDT us Nargis Guy MD CHEMISTRY ORDERABLES Final Resul t [facility] CLIA# [id number] [place] [address] documented in this encounter Visit Diagnoses Not on filedocumented in this encounter
--- OUTSIDE RECORDS SUMMARY | 2025-06-21 15:36 | XMS_ITS | Encounter Summary ---
Author Organization Address [address] [place] [address] Care Team Providers Care Refrigerating Engineer Name Role Phone Unavailable Primary Care Provider Unavailabl e Encounter Details Date Type Department Care Team (Late st Contact Info) Description 06/20/2021 Lab Requisition [facility] Laboratory Services [address] [place] [id number] Social History Tobacco Use Types Packs/Day Years [...]
--- OUTSIDE RECORDS SUMMARY | 2025-06-21 15:36 | XMS_ITS | Encounter Summary ---
Author Organization [facility] Address [address] [place] [address] Care Team Providers Care Production Proofreader Name Role Phone Unavailable Primary Care Provider Unavailabl e Encounter Details Date Type Department Care Team (Late st Contact Info) Description 06/24/2021 Lab Requisition [facility] Laboratory Services [address] [place] [address] [place] [address] [place] [address] Social History Tobacco Use [...] - 10.5 K/uL 06/24/2021 6:33 AM CDT [facility] LABORATORY [facility] RBC 3.59(L) 3.90 - 4.90 M/uL 06/24/2021 6:33 AM CDT [facility] LABORATORY [facility] HEMOGLOBIN 9.8(L) 11.8 - 14.8 g/dL 06/24/2021 6:33 AM CDT [facility] LABORATORY [facility] HEMATOCRIT 30.2(L) 35.5 - 44.0 % 06/24/2021 6:33 AM CDT [facility] LABORATORY [facility] MCV 84.3 82.0 - 99.0 fL 06/24/2021 6:33 AM CDT [facility] LABORATORY [facility] MCH 27.3(L) 27.8 - 34.5 pg 06/24/2021 6:33 AM CDT [facility] LABORATORY [facility] MCHC 32.4(L) 32.5 - 35.5 g/dL 06/24/2021 6:33 AM CDT [facility] LABORATORY [facility] RDW 15.9(H) 11.5 - 14.5 % 06/24/2021 6:33 AM CDT [facility] LABORATORY [facility] PLATELETS 353 160 - 420 K/uL 06/24/2021 6:33 AM CDT [facility] LABORATORY [facility] MPV 8.2(L) 8.7 - 12.7 fL 06/24/2021 6:33 AM CDT [facility] LABORATORY [facility] NEUTROPHILS 54 % 06/24/2021 6:33 AM CDT [facility] LABORATORY [facility] LYMPHOCYTES 34 % 06/24/2021 6:33 AM CDT [facility] LABORATORY [facility] MONOCYTES 8 % 06/24/2021 6:33 AM CDT [facility] LABORATORY [facility] EOSINOPHILS 4 % 06/24/2021 6:33 AM CDT [facility] LABORATORY [facility] BASOPHILS 1 % 06/24/2021 6:33 AM CDT [facility] LABORATORY [facility] NEUTROPHIL ABSOLUTE 3.60 1.90 - 7.00 K/uL 06/24/2021 6:33 AM CDT [facility] LABORATORY [facility] LYMPHOCYTE ABSOLUTE 2.20 0.70 - 4.50 K/uL 06/24/2021 6:33 AM CDT [facility] LABORATORY [facility] MONOCYTE ABSOLUTE 0.50 0.10 - 1.30 K/uL 06/24/2021 6:33 AM CDT [facility] LABORATORY SERVICES [facility] EOSINOPHIL ABSOLUTE 0.20 0.00 - 0.70 K/uL 06/24/2021 6:33 AM CDT [facility] LABORATORY SERVICES [facility] BASOPHILS ABSOLUTE 0.10 0.00 - 0.20 K/uL 06/24/2021 6:33 AM CDT [facility] LABORATORY [facility] Blood 06/24/2021 4:30 AM CDT 06/24/2021 6:18 AM CDT us Nargis Guy MD HEMATOLOGY ORDERABLES Final Resu lt [facility] CLIA# [id number] [place] [address] * (ABNORMAL) COMPREHENSIVE METABOLIC PANEL (06/24/2021 4:30 AM CDT) SODIUM 140 136 - 145 mmol/L 06/24/2021 6:58 AM CDT [facility] LABORATORY [facility] POTASSIUM 4.6 3.4 - 5.1 mmol/L 06/24/2021 6:58 AM CDT [facility] LABORATORY [facility] CHLORIDE 105 98 - 107 mmol/L 06/24/2021 6:58 AM CDT [facility] LABORATORY [facility] CO2 22 22 - 29 mmol/L 06/24/2021 6:58 AM CDT [facility] LABORATORY [facility] CALCIUM 8.9 8.6 - 10.4 mg/dL 06/24/2021 6:58 AM CDT [facility] LABORATORY [facility] BUN 11 6 - 20 mg/dL 06/24/2021 6:58 AM CDT [facility] LABORATORY [facility] CREATININE 0.93 0.51 - 0.95 mg/dL 06/24/2021 6:58 AM CDT [facility] LABORATORY [facility] GLUCOSE 97 74 - 99 mg/dL 06/24/2021 6:58 AM CDT [facility] LABORATORY [facility] TOTAL PROTEIN 6.3 6.3 - 8.7 g/dL 06/24/2021 6:58 AM CDT [facility] ALBUMIN 2.7(L) 3.5 - 5.2 g/dL 06/24/2021 6:58 AM T [facility] BILIRUBIN TOTAL 0.2(L) 0.3 - 1.2 mg/dL 06/24/2021 6:58 AM T [facility] ALKALINE PHOSPHATASE 110 40 - 150 U/L 06/24/2021 6:58 AM CDT [facility] AST 24 0 - 33 U/L 06/24/2021 6:58 AM T [facility] ALT 20 0 - 33 U/L 06/24/2021 6:58 AM T [facility] GFR >60 mL/min/1.7 3 sq meter 06/24/2021 6:58 AM T [facility] Comment: eGFR has not been validated [...] 3 sq meter 06/24/2021 6:58 AM CDT [facility] ANION GAP 13 8 - 16 mmol/L 06/24/2021 6:58 AM T [facility] Blood 06/24/2021 4:30 AM CDT 06/24/2021 6:18 AM CDT us Nargis Guy MD CHEMISTRY ORDERABLES Final Resul t [facility] CLIA# [id number] [place] [address] documented in this encounter Visit Diagnoses Not on filedocumented in this encounter
--- OUTSIDE RECORDS SUMMARY | 2025-06-21 15:36 | XMS_ITS | Encounter Summary ---
Author Organization [facility] Address [address] [place] [address] Care Team Providers Care Ballistician Name Role Phone Unavailable Primary Care Provider Unavailabl e Encounter Details Date Type Department Care Team (Late st Contact Info) Description 06/30/2021 Lab Requisition [facility] Laboratory Services [address] [place] [address] [place] [address] [place] [address] Social History Tobacco Use Types [...] - 10.5 K/uL 06/30/2021 11:22 AM CDT [facility] LABORATORY [facility] RBC 3.44(L) 3.90 - 4.90 M/uL 06/30/2021 11:22 AM CDT [facility] LABORATORY [facility] HEMOGLOBIN 9.4(L) 11.8 - 14.8 g/dL 06/30/2021 11:[facility] HEMATOCRIT 29.4(L) 35.5 - 44.0 % 06/30/2021 11:22 AM CDT [facility] LABORATORY [facility] MCV 85.4 82.0 - 99.0 fL 06/30/2021 11:22 AM CDT [facility] LABORATORY [facility] MCH 27.3(L) 27.8 - 34.5 pg 06/30/2021 11:22 [facility] MCHC 32.0(L) 32.5 - 35.5 g/dL 06/30/2021 11:22 AM [facility] RDW 15.6(H) 11.5 - 14.5 % 06/30/2021 11:22 AM CDT [facility] LABORATORY [facility] PLATELETS 408 160 - 420 K/uL 06/30/2021 11:22 AM [facility] MPV 7.9(L) 8.7 - 12.7 fL 06/30/2021 11:22 AM CDT [facility] LABORATORY SERVICES [facility] NEUTROPHILS 53 % 06/30/2021 11:22 AM CDT [facility] LABORATORY [facility] LYMPHOCYTES 33 % 06/30/2021 11:22 AM CDT [facility] LABORATORY SERVICES [facility] MONOCYTES 8 % 06/30/2021 11:22 AM CDT [facility] LABORATORY SERVICES [facility] EOSINOPHILS 5 % 06/30/2021 11:22 AM CDT [facility] LABORATORY SERVICES [facility] BASOPHILS 1 % 06/30/2021 11:22 AM CDT [facility] LABORATORY SERVICES [facility] NEUTROPHIL ABSOLUTE 3.50 1.90 - 7.00 K/uL 06/30/2021 11:22 AM CDT [facility] LABORATORY [facility] LYMPHOCYTE ABSOLUTE 2.20 0.70 - 4.50 K/uL 06/30/2021 11:22 AM CDT [facility] LABORATORY [facility] MONOCYTE ABSOLUTE 0.50 0.10 - 1.30 K/uL 06/30/2021 11:22 AM CDT [facility] LABORATORY SERVICES [facility] EOSINOPHIL ABSOLUTE 0.30 0.00 - 0.70 K/uL 06/30/2021 11:22 AM CDT [facility] LABORATORY SERVICES [facility] BASOPHILS ABSOLUTE 0.10 0.00 - 0.20 K/uL 06/30/2021 11:22 AM CDT [facility] LABORATORY [facility] Blood Collection / Unknown 06/30/2021 3:45 AM CDT 06/30/2021 10:45 AM CDT Nargis Guy MD HEMATOLOGY ORDERABLES Final Resu lt [facility] CLIA# [id number] [place] [address] * (ABNORMAL) COMPREHENSIVE METABOLIC PANEL (06/30/2021 3:45 AM CDT) SODIUM 139 136 - 145 mmol/L 06/30/2021 11:40 AM CDT [facility] LABORATORY [facility] POTASSIUM 4.3 3.4 - 5.1 mmol/L 06/30/2021 11:40 AM CDT [facility] LABORATORY [facility] CHLORIDE 103 98 - 107 mmol/L 06/30/2021 11:40 AM CDT [facility] LABORATORY [facility] CO2 23 22 - 29 mmol/L 06/30/2021 11:40 AM CDT [facility] LABORATORY [facility] CALCIUM 8.7 8.6 - 10.4 mg/dL 06/30/2021 11:40 AM CDT [facility] LABORATORY [facility] BUN 12 6 - 20 mg/dL 06/30/2021 11:40 AM CDT [facility] LABORATORY SERVICES [facility] CREATININE 0.89 0.51 - 0.95 mg/dL 06/30/2021 11:40 AM CDT [facility] LABORATORY [facility] GLUCOSE 107(H) 74 - 99 mg/dL 06/30/2021 11:40 AM CDT [facility] LABORATORY [facility] TOTAL PROTEIN 6.0(L) 6.3 - 8.7 g/dL 06/30/2021 11:40 AM [facility] ALBUMIN 2.7(L) 3.5 - 5.2 g/dL 06/30/2021 11:40 AM T [facility] BILIRUBIN TOTAL <0.2(L) 0.2 - 1.1 mg/dL 06/30/2021 11:40 AM T [facility] ALKALINE PHOSPHATASE 110 40 - 150 U/L 06/30/2021 11:40 AM T [facility] AST 23 0 - 33 U/L 06/30/2021 11:40 AM [facility] ALT 18 0 - 33 U/L 06/30/2021 11:40 AM [facility] GFR >60 mL/min/1.7 3 sq meter 06/30/2021 11:40 AM T [facility] Comment: eGFR has not been validated [...] 3 sq meter 06/30/2021 11:40 AM CDT [facility] ANION GAP 13 8 - 16 mmol/L 06/30/2021 11:40 AM T [facility] Blood Collection / Unknown 06/30/2021 3:45 AM CDT 06/30/2021 10:45 AM CDT us Nargis Guy MD CHEMISTRY ORDERABLES Final Resul t [facility] CLIA# [id number] [place] [address] documented in this encounter Visit Diagnoses Not on filedocumented in this encounter
--- OUTSIDE RECORDS SUMMARY | 2025-06-21 15:36 | XMS_ITS | Encounter Summary ---
Author Organization [facility] Address [address] [place] [address] Care Team Providers Care Machine Inker Name Role Phone Karime Aguilera RN, Haresh K MD Primary Care Provider Reason for Visit * Reason Onset Date Comments Request Lab Order 09/10/2023 Imaging 09/10/2023 Encounter Details Date Type Department Care Team (Late st Contact Info) Description 09/10/2023 Telephone [facility] - TRUCK RAILROAD AND BUS MOTOR MECHANIC [address] [place] [address] Christy Khan MD [address] [facility] [address] [place] [address] Request Lab Order; Imaging Social [...] needs screening mammogram ordered and sent to [facility]. RN ordered and faxed to [phone] RN scheduled pt for WWE 10/14/2023 9:15 AM Christy Khan MD Pt accepts appt * Telephone Encounter - Nataliia Bangura - 09/10/2023 10:05 AM CDT Pt wants Mammogram order sent to [facility] in [place], [place]. documented in this encounter Plan of Treatment Not on file documented as of this encounter Visit Diagnoses Diagnosis Encounter for screening mammogram for malignant neoplasm of breast- Primary Other screening mammogram documented in this encounter Care Teams Machine Inker Relationship Specialty Start Date End Date Gurvinder Renteria MD [address] [place] [address] PCP - General 01/01/22 Karime Aguilera RN 05/07/18 documented as of this encounter
--- OUTSIDE RECORDS SUMMARY | 2025-06-21 15:36 | XMS_ITS | Encounter Summary ---
Author Organization [facility] Address [address] [place] [address] Care Team Providers Care Net Developer Consultant Name Role Phone Karime Aguilera RN, Haresh K MD Primary Care Provider [phone] Reason for Visit * Reason Onset Date Comments Question 01/18/2025 Encounter Details Date Type Department Care Team (Late st Contact Info) Description 01/18/2025 Telephone [facility] - GEOCHEMICAL MANAGER [address] [facility] [address] [place] [address] Christy Khan MD [address] [facility] [address] [place] [address] Question Social History Tobacco Use [...] encounter Miscellaneous Notes * Telephone Encounter - Lena Aguilar, RN - 01/18/2025 12:56 PM CST Returned Nu's phone call. Left message asking her to return our call. PING PRESS OPERATOR * Telephone Encounter - Cristal Myers - 01/18/2025 12:48 PM CST [facility] nurse calling giving a report on patient from her visit today.. she is having burning with urination at least 10 + times daily.. pt was unable to give a specimen while she was there.. and was informed to call the office CB# [phone] PING PRESS OPERATOR documented in this encounter Plan of Treatment Not on file documented as of this encounter Visit Diagnoses Not on filedocumented in this encounter Care Teams Net Developer Consultant Relationship Specialty Start Date End Date Gurvinder Renteria MD [address] [place] [address] PCP - General 01/01/22 Karime Aguilera RN 05/07/18 documented as of this encounter
--- OUTSIDE RECORDS SUMMARY | 2025-06-21 15:37 | XMS_ITS | Encounter Summary ---
Author Organization [facility] Address [address] [place] [address] Care Team Providers Care Sr. Social Media & Mobile Manager Name Role Phone Unavailable Primary Care Provider Unavailabl e Encounter Details Date Type Department Care Team (Late st Contact Info) Description 06/18/2021 Lab Requisition [facility] [address] [place] [address] [place] [address] [place] [address] Social History Tobacco Use Types [...] SEDIMENTATION RATE (06/18/2021 4:15 AM CDT) Pathologist [facility] ESR (SEDIMENTATION RATE) 51(H) 0 - 30 mm/Hr 06/18/2021 10:14 AM CDT [facility] Blood Collection / Unknown 06/18/2021 4:15 AM CDT 06/18/2021 8:44 AM CDT Nargis Guy MD HEMATOLOGY ORDERABLES Final Resu lt Performing Organization Address City/[facility]/ZIP Co de Phone Number [facility] CLIA# [id number] [place], [place] [address] * RETICULOCYTES (06/18/2021 4:15 AM CDT) Pathologist [facility] RETICULOCYTES 2.0 0.4 - 2.0 % 06/18/2021 8:52 AM CDT [facility] IMMATURE RETIC FRACTION 0.6 % 06/18/2021 8:52 AM CDT [facility] RETICULOCYTE, ABSOLUTE 0.0651 0.0250 - 0.1480 10e6/uL 06/18/2021 8:52 AM CDT [facility] Blood Collection / Unknown 06/18/2021 4:15 AM CDT 06/18/2021 8:44 AM CDT Nargis Guy MD HEMATOLOGY ORDERABLES Final Resu lt Performing Organization Address City/[facility]/ZIP Co de Phone Number [facility] CLIA# [id number] [place] [address] * (ABNORMAL) PREALBUMIN (06/18/2021 4:15 AM CDT) PREALBUMIN 14(L) 20 - 40 mg/dL 06/18/2021 11:37 AM CDT [facility] Blood Collection / Unknown 06/18/2021 4:15 AM CDT 06/18/2021 8:15 AM CDT Nargis Guy MD CHEMISTRY ORDERABLES Final Resul t [facility] CLIA# [id number] [address] [place] [address] * (ABNORMAL) IRON, TIBC, AND PERCENT SATURATION (06/18/2021 4:15 AM CDT) IRON 34(L) 37 - 145 ug/dL 06/18/2021 8:54 AM CDT [facility] TIBC 146(L) 265 - 497 ug/dL 06/18/2021 8:54 AM CDT [facility] IRON % SATURATION 23 20 - 55 % 06/18/2021 8:54 AM CDT [facility] Blood Collection / Unknown 06/18/2021 4:15 AM CDT 06/18/2021 8:18 AM CDT Nargis Guy MD CHEMISTRY ORDERABLES Final Resul t [facility] CLIA# [id number] [address] [place] [address] * (ABNORMAL) C-REACTIVE PROTEIN (06/18/2021 4:15 AM CDT) CRP 51.3(H) <5.0 mg/L 06/18/2021 8:50 AM CDT [facility] Blood Collection / Unknown 06/18/2021 4:15 AM CDT 06/18/2021 8:18 AM CDT Nargis Guy MD CHEMISTRY ORDERABLES Final Resul t [facility] CLIA# [id number] [place] [address] * (ABNORMAL) CBC WITH DIFFERENTIAL (06/18/2021 4:15 AM CDT) [facility] WBC 7.9 4.5 - 10.5 K/uL 06/18/2021 8:52 AM CDT [facility] RBC 3.30(L) 3.90 - 4.90 M/uL 06/18/2021 8:52 AM CDT [facility] HEMOGLOBIN 9.0(L) 11.8 - 14.8 g/dL 06/18/2021 8:52 AM CDT [facility] HEMATOCRIT 28.2(L) 35.5 - 44.0 % 06/18/2021 8:52 AM CDT [facility] MCV 85.3 82.0 - 99.0 fL 06/18/2021 8:52 AM CDT [facility] MCH 27.3(L) 27.8 - 34.5 pg 06/18/2021 8:52 AM CDT [facility] MCHC 32.0(L) 32.5 - 35.5 g/dL 06/18/2021 8:52 AM CDT [facility] RDW 15.8(H) 11.5 - 14.5 % 06/18/2021 8:52 AM CDT [facility] PLATELETS 379 160 - 420 K/uL 06/18/2021 8:52 AM CDT [facility] MPV 7.4(L) 8.7 - 12.7 fL 06/18/2021 8:52 AM CDT [facility] NEUTROPHILS 59 % 06/18/2021 8:52 AM CDT [facility] LYMPHOCYTES 28 % 06/18/2021 8:52 AM CDT [facility] MONOCYTES 8 % 06/18/2021 8:52 AM CDT [facility] EOSINOPHILS 4 % 06/18/2021 8:52 AM CDT [facility] BASOPHILS 1 % 06/18/2021 8:52 AM CDT [facility] NEUTROPHIL ABSOLUTE 4.70 1.90 - 7.00 K/uL 06/18/2021 8:52 AM CDT [facility] LYMPHOCYTE ABSOLUTE 2.20 0.70 - 4.50 K/uL 06/18/2021 8:52 AM CDT [facility] MONOCYTE ABSOLUTE 0.70 0.10 - 1.30 K/uL 06/18/2021 8:52 AM CDT [facility] EOSINOPHIL ABSOLUTE 0.30 0.00 - 0.70 K/uL 06/18/2021 8:52 AM CDT [facility] BASOPHILS ABSOLUTE 0.00 0.00 - 0.20 K/uL 06/18/2021 8:52 AM CDT [facility] Blood Collection / Unknown 06/18/2021 4:15 AM CDT 06/18/2021 8:44 AM CDT us Nargis Guy MD HEMATOLOGY ORDERABLES Final Resu lt [facility] CLIA# [id number] [address] [place] [address] * (ABNORMAL) COMPREHENSIVE METABOLIC PANEL (06/18/2021 4:15 AM CDT) SODIUM 140 136 - 145 mmol/L 06/18/2021 8:50 AM CDT [facility] POTASSIUM 3.7 3.4 - 5.1 mmol/L 06/18/2021 8:50 AM CDT [facility] CHLORIDE 105 98 - 107 mmol/L 06/18/2021 8:50 AM [facility] CO2 23 22 - 29 mmol/L 06/18/2021 8:50 AM [facility] CALCIUM 8.6 8.6 - 10.4 mg/dL 06/18/2021 8:50 AM [facility] BUN 14 6 - 20 mg/dL 06/18/2021 8:50 AM [facility] CREATININE 1.10(H) 0.51 - 0.95 mg/dL 06/18/2021 8:50 AM [facility] GLUCOSE 98 74 - 99 mg/dL 06/18/2021 8:50 AM [facility] TOTAL PROTEIN 5.7(L) 6.3 - 8.7 g/dL 06/18/2021 8:50 AM [facility] ALBUMIN 2.4(L) 3.5 - 5.2 g/dL 06/18/2021 8:50 AM [facility] BILIRUBIN TOTAL 0.2(L) 0.3 - 1.2 mg/dL 06/18/2021 8:50 AM [facility] ALKALINE PHOSPHATASE 114 40 - 150 U/L 06/18/2021 8:50 AM [facility] AST 25 0 - 33 U/L 06/18/2021 8:50 AM [facility] ALT 23 0 - 33 U/L 06/18/2021 8:50 AM [facility] GFR 51 mL/min/1.7 3 sq meter 06/18/2021 8:50 AM [facility] Comment: eGFR has [...] 3 sq meter 06/18/2021 8:50 AM CDT [facility] ANION GAP 12 8 - 16 mmol/L 06/18/2021 8:50 AM CDT [facility] Blood Collection / Unknown 06/18/2021 4:15 AM CDT 06/18/2021 8:18 AM CDT us Nargis Guy MD CHEMISTRY ORDERABLES Final Resul t [facility] CLIA# [id number] [address] [place] [address] documented in this encounter Visit Diagnoses Not on filedocumented in this encounter
--- OUTSIDE RECORDS SUMMARY | 2025-06-21 15:37 | XMS_ITS | Encounter Summary ---
Author Organization [facility] Address [address] [place] [address] Care Team Providers Care Senior Net Application Developer Name Role Phone Unavailable Primary Care Provider Unavailabl e Encounter Details Date Type Department Care Team (Late st Contact Info) Description 05/12/2021 Lab Requisition [facility] Services [address] [place] [address] [place] [address] [place] [address] Social History Tobacco Use Types [...] ) HAKEEM MCG/ML 05/13/2021 2:10 PM CDT [facility] Urine URINE SPECIMEN OBTAINED BY CLEAN CATCH PROCEDURE / Unknown Collection / Unknown 05/11/2021 7:53 PM CDT 05/12/2021 10:42 AM CDT Nargis Guy MD MICROBIOLOGY - GENERAL ORDERABLE S Final Result [facility] CLIA# [id number] [address] [place] [address] * (ABNORMAL) URINALYSIS WITH REFLEX CULTURE (05/11/2021 7:53 PM CDT) COLOR UA Pale Yellow Pale to Dark Yellow 05/12/2021 10:42 AM CDT [facility] [employer] [facility] CLARITY UA Slightly Cloudy(A) Clear 05/12/2021 10:42 AM CDT [facility] [employer] [facility] SPECIFIC GRAVITY UA 1.015 1.003 - 1.035 05/12/2021 10:42 AM CDT [facility] [employer] [facility] PH UA 6.0 5.0 - 8.0 05/12/2021 10:42 AM CDT [facility] [employer] [facility] LEUKOCYTE ESTERASE UA 3+(A) Negative 05/12/2021 10:42 AM CDT [facility] [employer] [facility] NITRITE UA Negative Negative 05/12/2021 10:42 AM CDT [facility] [employer] [facility] PROTEIN UA Negative Negative 05/12/2021 10:42 AM CDT [facility] [employer] [facility] GLUCOSE UA Negative Negative 05/12/2021 10:42 AM CDT [facility] [employer] [facility] KETONES UA Negative Negative 05/12/2021 10:42 AM CDT [facility] [employer] [facility] UROBILINOGEN UA Normal <2.0 mg/dL 10:42 AM CDT [facility] [employer] [facility] BILIRUBIN UA Negative Negative 05/12/2021 10:42 AM CDT [facility] [employer] [facility] BLOOD UA Negative Negative 05/12/2021 10:42 AM CDT [facility] WBC UA 11-25(A) 0 - 2 /hpf 05/12/2021 10:42 AM CDT [facility] RBC UA 6-10(A) 0 - 2 /hpf 05/12/2021 10:42 AM CDT [facility] BACTERIA UA 1+(A) Negative /hpf 05/12/2021 10:42 AM CDT [facility] EPITHELIAL CELLS, URINE 0-5 0 - 5 /hpf 05/12/2021 10:42 AM CDT [facility] HYALINE CAST None Seen None Seen, 0-2 /lpf 05/12/2021 10:42 AM CDT [facility] YEAST, BUDDING Present(A) Absent 05/12/2021 10:42 AM CDT [facility] Urine URINE SPECIMEN OBTAINED BY CLEAN CATCH PROCEDURE / Unknown Collection / Unknown 05/11/2021 7:53 PM CDT 05/12/2021 10:22 AM CDT Narrative [facility] - 05/12/2021 10:42 AM CDT Based on results, a urine culture has been reflexed. us Nargis Guy MD URINE ORDERABLES Final Result [facility] CLIA# [id number] [place] [address] documented in this encounter Visit Diagnoses Not on filedocumented in this encounter
--- OUTSIDE RECORDS SUMMARY | 2025-06-21 15:37 | XMS_ITS | Encounter Summary ---
Author Organization [facility] Address [address] [place] [address] Care Team Providers Care Neuro Ophthalmologist Name Role Phone Unavailable Primary Care Provider Unavailabl e Encounter Details Date Type Department Care Team (Late st Contact Info) Description 06/11/2021 Lab Requisition [facility] Laboratory Services [address] [place] [address] [place] [address] [place] [address] Social History Tobacco Use Types [...]
--- OUTSIDE RECORDS SUMMARY | 2025-06-21 15:37 | XMS_ITS | Encounter Summary ---
Author Organization [facility] Address [address] [place] [address] Care Team Providers Care Wine Fermenter Name Role Phone Unavailable Primary Care Provider Unavailabl e Encounter Details Date Type Department Care Team (Late st Contact Info) Description 06/11/2021 Lab Requisition [facility] Laboratory Services [address] [place] [address] [place] [address] [place] [address] Social History Tobacco Use Types [...] - 40 mg/dL 06/11/2021 5:53 PM CDT [facility] Blood Collection / Unknown 06/11/2021 11:20 AM CDT 06/11/2021 1:21 PM CDT Nargis Guy MD CHEMISTRY ORDERABLES Final Resul t [facility] CLIA# [id number] [address] [facility] [place] [address] * (ABNORMAL) CBC WITH DIFFERENTIAL (06/11/2021 11:20 AM CDT) Pathologist [facility] WBC 8.8 4.5 - 10.5 K/uL 06/11/2021 1:38 PM CDT [facility] RBC 3.64(L) 3.90 - 4.90 M/uL 06/11/2021 1:38 PM CDT [facility] HEMOGLOBIN 10.1(L) 11.8 - 14.8 g/dL 06/11/2021 1:38 PM CDT [facility] HEMATOCRIT 31.5(L) 35.5 - 44.0 % 06/11/2021 1:38 PM CDT [facility] MCV 86.7 82.0 - 99.0 fL 06/11/2021 1:38 PM CDT [facility] MCH 27.9 27.8 - 34.5 pg 06/11/2021 1:38 PM CDT [facility] MCHC 32.2(L) 32.5 - 35.5 g/dL 06/11/2021 1:38 PM CDT [facility] RDW 15.8(H) 11.5 - 14.5 % 06/11/2021 1:38 PM CDT [facility] PLATELETS 470(H) 160 - 420 K/uL 06/11/2021 1:38 PM CDT [facility] MPV 8.0(L) 8.7 - 12.7 fL 06/11/2021 1:38 PM CDT [facility] NEUTROPHILS 62 % 06/11/2021 1:38 PM CDT [facility] LYMPHOCYTES 23 % 06/11/2021 1:38 PM CDT [facility] MONOCYTES 9 % 06/11/2021 1:38 PM CDT [facility] EOSINOPHILS 5 % 06/11/2021 1:38 PM CDT [facility] BASOPHILS 1 % 06/11/2021 1:38 PM CDT [facility] NEUTROPHIL ABSOLUTE 5.40 1.90 - 7.00 K/uL 06/11/2021 1:38 PM CDT [facility] LYMPHOCYTE ABSOLUTE 2.00 0.70 - 4.50 K/uL 06/11/2021 1:38 PM CDT [facility] MONOCYTE ABSOLUTE 0.80 0.10 - 1.30 K/uL 06/11/2021 1:38 PM CDT [facility] EOSINOPHIL ABSOLUTE 0.50 0.00 - 0.70 K/uL 06/11/2021 1:38 PM CDT [facility] BASOPHILS ABSOLUTE 0.10 0.00 - 0.20 K/uL 06/11/2021 1:38 PM CDT [facility] Blood Collection / Unknown 06/11/2021 11:20 AM CDT 06/11/2021 1:21 PM CDT us Nargis Guy MD HEMATOLOGY ORDERABLES Final Resu lt [facility] CLIA# [id number] [address] [place] [address] * (ABNORMAL) COMPREHENSIVE METABOLIC PANEL (06/11/2021 11:20 AM CDT) SODIUM 140 136 - 145 mmol/L 06/11/2021 1:52 PM CDT [facility] POTASSIUM 4.1 3.4 - 5.1 mmol/L 06/11/2021 1:52 PM [facility] CHLORIDE 104 98 - 107 mmol/L 06/11/2021 1:52 PM [facility] CO2 24 22 - 29 mmol/L 06/11/2021 1:52 PM [facility] CALCIUM 8.6 8.6 - 10.4 mg/dL 06/11/2021 1:52 PM [facility] BUN 10 6 - 20 mg/dL 06/11/2021 1:52 PM [facility] CREATININE 0.94 0.51 - 0.95 mg/dL 06/11/2021 1:52 PM [facility] GLUCOSE 157(H) 74 - 99 mg/dL 06/11/2021 1:52 PM [facility] TOTAL PROTEIN 6.1(L) 6.3 - 8.7 g/dL 06/11/2021 1:52 PM [facility] ALBUMIN 2.7(L) 3.5 - 5.2 g/dL 06/11/2021 1:52 PM [facility] BILIRUBIN TOTAL <0.2(L) 0.3 - 1.2 mg/dL 06/11/2021 1:52 PM [facility] ALKALINE PHOSPHATASE 155(H) 40 - 150 U/L 06/11/2021 1:52 PM [facility] AST 45(H) 0 - 33 U/L 06/11/2021 1:52 PM [facility] ALT 44(H) 0 - 33 U/L 06/11/2021 1:52 PM [facility] GFR >60 mL/min/1.7 3 sq meter 06/11/2021 1:52 PM [facility] Comment: eGFR has [...] 3 sq meter 06/11/2021 1:52 PM CDT [facility] ANION GAP 12 8 - 16 mmol/L 06/11/2021 1:52 PM CDT [facility] Blood Collection / Unknown 06/11/2021 11:20 AM CDT 06/11/2021 1:21 PM CDT us Nargis Guy MD CHEMISTRY ORDERABLES Final Resul t [facility] CLIA# [id number] [address] [place] [address] documented in this encounter Visit Diagnoses Not on filedocumented in this encounter
--- OUTSIDE RECORDS SUMMARY | 2025-06-21 15:37 | XMS_ITS | Encounter Summary ---
Author Organization [facility] Address [address] [place] [address] Care Team Providers Care Cartographic Engineer Name Role Phone Murali Silva MD Primary Care Provider [phone] Karime Aguilera RN [facility] Gurvinder Stephens MD Primary Care Provider [phone] Reason for Visit * Reason Onset Date Comments Update 05/06/2018 Encounter Details Date Type Department Care Team (Late st Contact Info) Description 05/06/2018 Telephone [facility] [address] [place] [address] Christy Khan MD [address] [address] Update Social History Tobacco Use Types Packs/Day Years Used Date Smoking Tobacco: Every Day Cigarettes Smokeless Tobacco: Never Alcohol Use Standard Drinks/Week Comments Yes 0 (1 standard drink = 0.6 oz pur e alcohol) Comments No Sex and Gender Information Value [...] like a call back please. Pt callback #[phone] documented in this encounter Plan of Treatment Not on file documented as of this encounter Visit Diagnoses Not on filedocumented in this encounter Care Teams Cartographic Engineer Relationship Specialty Start Date End Date Murali Silva MD [address] [place] [address] PCP - General 03/03/18 12/31/21 Gurvinder Renteria MD [address] [place] [address] PCP - General 01/01/22 Karime Aguilera RN 05/07/18 documented as of this encounter
--- OUTSIDE RECORDS SUMMARY | 2025-06-21 15:37 | XMS_ITS | Encounter Summary ---
Author Organization [facility] Address [address] [place] [address] Care Team Providers Care Space Planner Name Role Phone Unavailable Primary Care Provider Unavailabl e Encounter Details Date Type Department Care Team (Late st Contact Info) Description 06/11/2021 Lab Requisition [facility] Laboratory Services [address] [place] [address] [place] [address] [place] [address] Social History Tobacco Use Types [...] to Dark Yellow 06/11/2021 7:56 AM CDT [facility] CLARITY UA Slightly Cloudy(A) Clear 06/11/2021 7:56 AM CDT [facility] SPECIFIC GRAVITY UA 1.006 1.003 - 1.035 06/11/2021 7:56 AM CDT [facility] PH UA 6.0 5.0 - 8.0 06/11/2021 7:56 AM CDT [facility] LEUKOCYTE ESTERASE UA 3+(A) Negative 06/11/2021 7:56 AM CDT [facility] NITRITE UA Negative Negative 06/11/2021 7:56 AM CDT [facility] PROTEIN UA Negative Negative 06/11/2021 7:56 AM CDT [facility] GLUCOSE UA Negative Negative 06/11/2021 7:56 AM CDT [facility] KETONES UA Negative Negative 06/11/2021 7:56 AM CDT [facility] UROBILINOGEN UA Normal <2.0 mg/dL 7:56 AM CDT [facility] BILIRUBIN UA Negative Negative 06/11/2021 7:56 AM CDT [facility] BLOOD UA 1+(A) Negative 06/11/2021 7:56 AM CDT [facility] WBC UA 11-25(A) 0 - 2 /hpf 06/11/2021 7:56 AM CDT [facility] RBC UA 3-5(A) 0 - 2 /hpf 06/11/2021 7:56 AM CDT [facility] BACTERIA UA Negative Negative /hpf 06/11/2021 7:56 AM CDT [facility] EPITHELIAL CELLS, URINE 0-5 0 - 5 /hpf 06/11/2021 7:56 AM CDT [facility] HYALINE CAST None Seen None Seen, 0-2 /lpf 06/11/2021 7:56 AM CDT [facility] Urine URINE SPECIMEN OBTAINED BY CLEAN CATCH PROCEDURE / Unknown Collection / Unknown 06/11/2021 12:01 AM CDT 06/11/2021 7:42 AM CDT us Nargis Guy MD URINE ORDERABLES Final Result [facility] CLIA# [id number] [place] [address] * URINE CULTURE (06/11/2021 12:01 AM CDT) CULTURE No growth at 24 hours 06/12/2021 1:08 PM CDT [facility] Urine Collection / Unknown 06/11/2021 12:01 AM CDT 06/11/2021 7:42 AM CDT us Nargis Guy MD MICROBIOLOGY - GENERAL ORDERABLE S Final Result Performing Organization Address City/[facility]/ZIP Co de Phone Number [facility] CLIA# [id number] [address] [place] [address] documented in this encounter Visit Diagnoses Not on filedocumented in this encounter
--- OUTSIDE RECORDS SUMMARY | 2025-06-21 15:37 | XMS_ITS | Encounter Summary ---
Author Organization [facility] Address [address] [place] [address] Care Team Providers Care Appointment Setter Name Role Phone Karime Aguilera RN, Haresh K MD Primary Care Provider [phone] Reason for Visit * Reason Onset Date Comments Nurse Only 01/18/2025 Encounter Details Date Type Department Care Team (Late st Contact Info) Description 01/18/2025 Telephone [facility] - TIMBER MANAGEMENT PROFESSOR [address] [facility] [address] [place] [address] Christy Khan MD [address] [facility] [address] [place] [address] Nurse Only Social History Tobacco Use Types Packs/Day Years [...] Miscellaneous Notes * Telephone Encounter - Lena Aguilar RN - 01/18/2025 1:22 PM CST Called patient. Left a message asking her to give our office a call. PRING ASSEMBLER * Telephone Encounter - Tito Dunaway - 01/18/2025 1:04 PM CST Muna returning missed call for Juliann and request a nurse calls Juliann phone Muna will be occupied with another patient and wont be able to answer PRING ASSEMBLER documented in this encounter Plan of Treatment Not on file documented as of this encounter Visit Diagnoses Not on filedocumented in this encounter Care Teams Appointment Setter Relationship Specialty Start Date End Date Gurvinder Renteria MD [address] [place] [address] PCP - General 01/01/22 Karime Aguilera RN 05/07/18 documented as of this encounter
--- OUTSIDE RECORDS SUMMARY | 2025-06-21 15:37 | XMS_ITS | Encounter Summary ---
Author Organization [facility] Address [address] [place] [address] Care Team Providers Care Sheet Metal Duct Installer Name Role Phone Unavailable Primary Care Provider Unavailabl e Encounter Details Date Type Department Care Team (Late st Contact Info) Description 05/28/2021 Lab Requisition [facility] Laboratory Services [address] [place] [address] [place] [address] [place] [address] Social History Tobacco Use Types [...] ORDERABLES Final Resul t Performing Organization Address [facility] de Phone Number [facility] CLIA# [id number] [place] [address] * (ABNORMAL) VITAMIN D 25 HYDROXY (05/28/2021 5:00 AM CDT) VITAMIN D TOTAL (25OH) 14(L) 30 - 100 ng/mL 05/28/2021 12:03 PM CDT [facility] Blood Collection / Unknown 05/28/2021 5:00 AM CDT 05/28/2021 11:07 AM CDT Narrative [facility] - 05/28/2021 12:03 PM CDT Interpretive Data Chart: Deficient: 0 - 20 ng/mL Insufficient: 21 - 29 ng/mL Sufficient: 30 - 100 ng/mL Increased Risk of Hypercalciuria: >100 ng/ml Toxic: >150 ng/ml Nargis Guy MD CHEMISTRY ORDERABLES Final Resul t Performing Organization Address [facility] Co de Phone Number [facility] CLIA# [id number] [place] [address] * (ABNORMAL) CBC WITH DIFFERENTIAL (05/28/2021 5:00 AM CDT) Pathologist [facility] WBC 8.2 4.5 - 10.5 K/uL 05/28/2021 11:15 AM CDT [facility] [employer] [facility] RBC 3.22(L) 3.90 - 4.90 M/uL 05/28/2021 11:15 AM CDT [facility] [employer] [facility] HEMOGLOBIN 9.2(L) 11.8 - 14.8 g/dL 05/28/2021 11:15 AM CDT [facility] LABORATORY SERVICES - [facility] HEMATOCRIT 28.5(L) 35.5 - 44.0 % 05/28/2021 11:15 AM CDT [facility] LABORATORY SERVICES - [facility] MCV 88.3 82.0 - 99.0 fL 05/28/2021 11:15 AM CDT [facility] LABORATORY SERVICES - [facility] MCH 28.7 27.8 - 34.5 pg 05/28/2021 11:15 AM CDT [facility] LABORATORY SERVICES [facility] MCHC 32.5 32.5 - 35.5 g/dL 05/28/2021 11:15 AM CDT [facility] LABORATORY SERVICES [facility] RDW 16.6(H) 11.5 - 14.5 % 05/28/2021 11:15 AM CDT [facility] LABORATORY SERVICES [facility] PLATELETS 363 160 - 420 K/uL 05/28/2021 11:15 AM CDT [facility] LABORATORY SERVICES [facility] MPV 7.5(L) 8.7 - 12.7 fL 05/28/2021 11:15 AM CDT [facility] LABORATORY SERVICES [facility] NEUTROPHILS 68 % 05/28/2021 11:15 AM CDT [facility] LABORATORY SERVICES [facility] LYMPHOCYTES 21 % 05/28/2021 11:15 AM CDT [facility] LABORATORY SERVICES [facility] MONOCYTES 7 % 05/28/2021 11:15 AM CDT [facility] LABORATORY SERVICES [facility] EOSINOPHILS 4 % 05/28/2021 11:15 AM CDT [facility] LABORATORY SERVICES [facility] BASOPHILS 1 % 05/28/2021 11:15 AM CDT [facility] LABORATORY SERVICES [facility] NEUTROPHIL ABSOLUTE 5.50 1.90 - 7.00 K/uL 05/28/2021 11:15 AM CDT [facility] LABORATORY SERVICES [facility] LYMPHOCYTE ABSOLUTE 1.70 0.70 - 4.50 K/uL 05/28/2021 11:15 AM CDT [facility] LABORATORY SERVICES [facility] MONOCYTE ABSOLUTE 0.60 0.10 - 1.30 K/uL 05/28/2021 11:15 AM CDT [facility] LABORATORY SERVICES [facility] EOSINOPHIL ABSOLUTE 0.30 0.00 - 0.70 K/uL 05/28/2021 11:15 AM CDT [facility] LABORATORY [facility] BASOPHILS ABSOLUTE 0.10 0.00 - 0.20 K/uL 05/28/2021 11:15 AM CDT [facility] Blood Collection / Unknown 05/28/2021 5:00 AM CDT 05/28/2021 11:07 AM CDT us Nargis Guy MD HEMATOLOGY ORDERABLES Final Resu lt [facility] CLIA# [id number] [place] [address] * (ABNORMAL) BASIC METABOLIC PANEL (05/28/2021 5:00 AM CDT) SODIUM 145 136 - 145 mmol/L 05/28/2021 11:44 AM T [facility] POTASSIUM 3.7 3.4 - 5.1 mmol/L 05/28/2021 11:44 AM [facility] CHLORIDE 108(H) 98 - 107 mmol/L 05/28/2021 11:44 AM T [facility] CO2 24 22 - 29 mmol/L 05/28/2021 11:44 AM [facility] CALCIUM 8.4(L) 8.6 - 10.4 mg/dL 05/28/2021 11:44 AM [facility] BUN 14 6 - 20 mg/dL 05/28/2021 11:44 AM [facility] CREATININE 1.17(H) 0.51 - 0.95 mg/dL 05/28/2021 11:44 AM T [facility] [employer] [facility] GLUCOSE 105(H) 74 - 99 mg/dL 05/28/2021 11:44 AM T [facility] [employer] [facility] GFR 47 mL/min/1.7 3 sq meter 05/28/2021 11:44 AM T [facility] [employer] [facility] Comment: eGFR has not been validated [...] mL/min/1.7 3 sq meter 05/28/2021 11:44 AM CDT [facility] LABORATORY [facility] ANION GAP 13 8 - 16 mmol/L 05/28/2021 11:44 AM CDT [facility] LABORATORY [facility] Blood Collection / Unknown 05/28/2021 5:00 AM CDT 05/28/2021 11:07 AM CDT us Nargis Guy MD CHEMISTRY ORDERABLES Final Resul t [facility] [employer] [facility] CLIA# [id number] [place] [address] documented in this encounter Visit Diagnoses Not on filedocumented in this encounter
--- OUTSIDE RECORDS SUMMARY | 2025-06-21 15:37 | XMS_ITS | Encounter Summary ---
Author Organization [facility] Address [address] [place] [address] Care Team Providers Care Bottom Filler Name Role Phone Unavailable Primary Care Provider Unavailabl e Encounter Details Date Type Department Care Team (Late st Contact Info) Description 05/10/2021 Lab Requisition [facility] Laboratory Services [address] [place] [address] [place] [address] [place] [address] Social History Tobacco Use Types [...] - 37.1 seconds 05/10/2021 9:45 AM CDT [facility] LABORATORY [facility] Blood Collection / Unknown 05/10/2021 6:11 AM CDT 05/10/2021 9:23 AM CDT Nargis Guy MD HEMATOLOGY ORDERABLES Final Resu lt [facility]# [id number] [place] [address] * PROTIME-INR (05/10/2021 6:11 AM CDT) Pathologist [facility] PROTIME 14.4 11.5 - 14.7 Seconds 05/10/2021 9:45 AM CDT [facility] [employer] [facility] INR 1.1 0.9 - 1.1 05/10/2021 9:[address] [facility] Blood Collection / Unknown 05/10/2021 6:11 AM CDT 05/10/2021 9:23 AM CDT Nargis Guy MD HEMATOLOGY ORDERABLES Final Resu lt [facility] [place]# [id number] [place] [address] * (ABNORMAL) PREALBUMIN (05/10/2021 6:11 AM CDT) Pathologist [facility] PREALBUMIN 13(L) 20 - 40 mg/dL 05/10/2021 10:20 AM CDT [facility] LABORATORY [facility] Blood Collection / Unknown 05/10/2021 6:11 AM CDT 05/10/2021 9:23 AM CDT Nargis Guy MD CHEMISTRY ORDERABLES Final Resul t [facility] CLIA# [id number] [place] [address] * (ABNORMAL) CBC WITH DIFFERENTIAL (05/10/2021 6:11 AM CDT) WBC 9.2 4.5 - 10.5 K/uL 05/10/2021 9:[address] [facility] RBC 2.81(L) 3.90 - 4.90 M/uL 05/10/2021 9:[address] [facility] HEMOGLOBIN 8.3(L) 11.8 - 14.8 g/dL 05/10/2021 9:[address] [facility] HEMATOCRIT 25.0(L) 35.5 - 44.0 % 05/10/2021 9:31 AM CDT [facility] [employer] [facility] MCV 88.9 82.0 - 99.0 fL 05/10/2021 9:[address] [facility] MCH 29.7 27.8 - 34.5 pg 05/10/2021 9:[address] [facility] MCHC 33.4 32.5 - 35.5 g/dL 05/10/2021 9:[address] [facility] RDW 14.7(H) 11.5 - 14.5 % 05/10/2021 9:31 AM CDT [facility] LABORATORY [facility] PLATELETS 421(H) 160 - 420 K/uL 05/10/2021 9:31 AM CDT [facility] LABORATORY [facility] MPV 7.9(L) 8.7 - 12.7 fL 05/10/2021 9:31 AM CDT [facility] LABORATORY [facility] NEUTROPHILS 68 45 - 70 % 05/10/2021 9:31 AM CDT [facility] LABORATORY [facility] LYMPHOCYTES 19 16 - 45 % 05/10/2021 9:31 AM CDT [facility] LABORATORY SERVICES - [facility] MONOCYTES 10 3 - 13 % 05/10/2021 9:31 AM CDT [facility] LABORATORY SERVICES - [facility] EOSINOPHILS 3 0 - 7 % 05/10/2021 9:31 AM CDT [facility] LABORATORY SERVICES - [facility] BASOPHILS 1 0 - 2 % 05/10/2021 9:31 AM CDT [facility] LABORATORY SERVICES [facility] NEUTROPHIL ABSOLUTE 6.20 1.90 - 7.00 K/uL 05/10/2021 9:31 AM CDT [facility] LABORATORY SERVICES - [facility] LYMPHOCYTE ABSOLUTE 1.70 0.70 - 4.50 K/uL 05/10/2021 9:31 AM CDT [facility] LABORATORY SERVICES - [facility] MONOCYTE ABSOLUTE 0.90 0.10 - 1.30 K/uL 05/10/2021 9:31 AM CDT [facility] LABORATORY SERVICES - [facility] EOSINOPHIL ABSOLUTE 0.20 0.00 - 0.70 K/uL 05/10/2021 9:31 AM CDT [facility] LABORATORY SERVICES [facility] BASOPHILS ABSOLUTE 0.10 0.00 - 0.20 K/uL 05/10/2021 9:31 AM CDT [facility] LABORATORY SERVICES [facility] Blood Collection / Unknown 05/10/2021 6:11 AM CDT 05/10/2021 9:23 AM CDT us Nargis Guy MD HEMATOLOGY ORDERABLES Final Resu lt [facility] CLIA# [id number] [place] [address] * (ABNORMAL) COMPREHENSIVE METABOLIC PANEL (05/10/2021 6:11 AM CDT) SODIUM 143 136 - 145 mmol/L 05/10/2021 10:18 AM CDT [facility] LABORATORY [facility] POTASSIUM 4.2 3.4 - 5.1 mmol/L 05/10/2021 10:18 AM CDT [facility] LABORATORY [facility] CHLORIDE 109(H) 98 - 107 mmol/L 05/10/2021 10:18 AM CDT [facility] CO2 20(L) 22 - 29 mmol/L 05/10/2021 10:18 AM [facility] CALCIUM 8.5(L) 8.6 - 10.4 mg/dL 05/10/2021 10:18 AM [facility] BUN 20 6 - 20 mg/dL 05/10/2021 10:18 AM [facility] CREATININE 2.50(H) 0.51 - 0.95 mg/dL 05/10/2021 10:18 AM [facility] GLUCOSE 96 74 - 99 mg/dL 05/10/2021 10:18 AM [facility] TOTAL PROTEIN 6.6 6.3 - 8.7 g/dL 05/10/2021 10:18 AM [facility] ALBUMIN 2.6(L) 3.5 - 5.2 g/dL 05/10/2021 10:18 AM [facility] BILIRUBIN TOTAL 0.2(L) 0.3 - 1.2 mg/dL 05/10/2021 10:18 AM [facility] ALKALINE PHOSPHATASE 94 40 - 150 U/L 05/10/2021 10:18 AM [facility] AST 24 0 - 33 U/L 05/10/2021 10:18 AM [facility] ALT 17 0 - 33 U/L 05/10/2021 10:18 AM [facility] GFR 20 mL/min/1.7 3 sq meter 05/10/2021 10:18 AM [facility] Comment: eGFR has not been validated for [...] 3 sq meter 05/10/2021 10:18 AM CDT [facility] LABORATORY [facility] ANION GAP 14 8 - 16 mmol/L 05/10/2021 10:18 AM CDT [facility] LABORATORY [facility] Blood Collection / Unknown 05/10/2021 6:11 AM CDT 05/10/2021 9:23 AM CDT us Nargis Guy MD CHEMISTRY ORDERABLES Final Resul t [facility] LABORATORY [facility] CLIA# [id number] [place] [address] documented in this encounter Visit Diagnoses Not on filedocumented in this encounter
--- OUTSIDE RECORDS SUMMARY | 2025-06-21 15:37 | XMS_ITS | Encounter Summary ---
Author Organization [facility] Address [address] [place] [address] Care Team Providers Care Video Production Specialist Name Role Phone Unavailable Primary Care Provider Unavailabl e Encounter Details Date Type Department Care Team (Late st Contact Info) Description 05/26/2021 Lab Requisition [facility] Laboratory Services [address] [place] [address] [facility], External Provider [address] [place] [address] Social History Tobacco Use Types Packs/Day Years [...] - 37.1 seconds 05/26/2021 7:19 AM CDT [facility] LABORATORY [facility] Blood Collection / Unknown 05/26/2021 4:30 AM CDT 05/26/2021 6:22 AM CDT External Provider [facility] HEMATOLOGY ORDERABLES Fin al Result [id number] [place] [address] * PROTIME-INR (05/26/2021 4:30 AM CDT) PROTIME 13.4 11.5 - 14.7 Seconds 05/26/2021 7:19 AM CDT [facility] LABORATORY [facility] INR 1.0 0.9 - 1.1 05/26/2021 7:19 AM CDT [facility] Energy [employer] [facility] Blood Collection / Unknown 05/26/2021 4:30 AM CDT 05/26/2021 6:22 AM CDT Result [facility] External Provider [facility] HEMATOLOGY ORDERABLES Fin al Result Performing Organization Address City/[facility]/ZIP Co de Phone Number [facility] [id number] [place] [address] * (ABNORMAL) PREALBUMIN (05/26/2021 4:30 AM CDT) PREALBUMIN 17(L) 20 - 40 mg/dL 05/26/2021 12:53 PM CDT [facility] LABORATORY [facility] Blood Collection / Unknown 05/26/2021 4:30 AM CDT 05/26/2021 6:22 AM CDT External Provider [facility] CHEMISTRY ORDERABLES Jennie l Result [facility] CLIA# [id number] [address] [facility] [place] [address] * (ABNORMAL) CBC WITH DIFFERENTIAL (05/26/2021 4:30 AM CDT) WBC 10.1 4.5 - 10.5 K/uL 05/26/2021 7:23 AM CDT [facility] LABORATORY [facility] RBC 3.06(L) 3.90 - 4.90 M/uL 05/26/2021 7:23 AM CDT [facility] LABORATORY [facility] HEMOGLOBIN 8.8(L) 11.8 - 14.8 g/dL 05/26/2021 7:23 AM CDT [facility] LABORATORY [facility] HEMATOCRIT 27.2(L) 35.5 - 44.0 % 05/26/2021 7:23 AM CDT [facility] LABORATORY [facility] MCV 89.0 82.0 - 99.0 fL 05/26/2021 7:23 AM CDT [facility] LABORATORY [facility] MCH 28.8 27.8 - 34.5 pg 05/26/2021 7:23 AM CDT [facility] LABORATORY [facility] MCHC 32.3(L) 32.5 - 35.5 g/dL 05/26/2021 7:23 AM CDT [facility] LABORATORY [facility] RDW 16.0(H) 11.5 - 14.5 % 05/26/2021 7:23 AM CDT [facility] LABORATORY [facility] PLATELETS 399 160 - 420 K/uL 05/26/2021 7:23 AM CDT [facility] LABORATORY [facility] MPV 7.8(L) 8.7 - 12.7 fL 05/26/2021 7:23 AM CDT [facility] LABORATORY [facility] NEUTROPHILS 71 % 05/26/2021 7:23 AM CDT [facility] LABORATORY [facility] LYMPHOCYTES 18 % 05/26/2021 7:23 AM CDT [facility] LABORATORY [facility] MONOCYTES 8 % 05/26/2021 7:23 AM CDT [facility] LABORATORY [facility] EOSINOPHILS 3 % 05/26/2021 7:23 AM CDT [facility] LABORATORY [facility] BASOPHILS 1 % 05/26/2021 7:23 AM CDT [facility] LABORATORY [facility] NEUTROPHIL ABSOLUTE 7.20(H) 1.90 - 7.00 K/uL 05/26/2021 7:23 AM CDT [facility] LABORATORY [facility] LYMPHOCYTE ABSOLUTE 1.90 0.70 - 4.50 K/uL 05/26/2021 7:23 AM CDT [facility] LABORATORY [facility] MONOCYTE ABSOLUTE 0.80 0.10 - 1.30 K/uL 05/26/2021 7:23 AM CDT [facility] LABORATORY SERVICES [facility] EOSINOPHIL ABSOLUTE 0.30 0.00 - 0.70 K/uL 05/26/2021 7:23 AM CDT [facility] LABORATORY SERVICES [facility] BASOPHILS ABSOLUTE 0.00 0.00 - 0.20 K/uL 05/26/2021 7:23 AM CDT [facility] LABORATORY [facility] Blood Collection / Unknown 05/26/2021 4:30 AM CDT 05/26/2021 6:22 AM CDT us External Provider [facility] HEMATOLOGY ORDERABLES Fin al Result [facility] CLIA# [id number] [place] [address] * (ABNORMAL) COMPREHENSIVE METABOLIC PANEL (05/26/2021 4:30 AM CDT) SODIUM 144 136 - 145 mmol/L 05/26/2021 7:23 AM CDT [facility] LABORATORY [facility] POTASSIUM 3.7 3.4 - 5.1 mmol/L 05/26/2021 7:23 AM CDT [facility] LABORATORY [facility] CHLORIDE 109(H) 98 - 107 mmol/L 05/26/2021 7:23 AM CDT [facility] LABORATORY [facility] CO2 24 22 - 29 mmol/L 05/26/2021 7:23 AM CDT [facility] LABORATORY [facility] CALCIUM 8.3(L) 8.6 - 10.4 mg/dL 05/26/2021 7:[address] [facility] BUN 19 6 - 20 mg/dL 05/26/2021 7:[address] [facility] CREATININE 1.18(H) 0.51 - 0.95 mg/dL 05/26/2021 7:[address] [facility] GLUCOSE 171(H) 74 - 99 mg/dL 05/26/2021 7:[address] [facility] TOTAL PROTEIN 5.9(L) 6.3 - 8.7 g/dL 05/26/2021 7:[address] [facility] ALBUMIN 2.6(L) 3.5 - 5.2 g/dL 05/26/2021 7:[address] [facility] BILIRUBIN TOTAL 0.2(L) 0.3 - 1.2 mg/dL 05/26/2021 7:[address] [facility] ALKALINE PHOSPHATASE 112 40 - 150 U/L 05/26/2021 7:[address] [facility] AST 35(H) 0 - 33 U/L 05/26/2021 7:[address] [facility] ALT 34(H) 0 - 33 U/L 05/26/2021 7:[address] [facility] GFR 47 mL/min/1.7 3 sq meter 05/26/2021 7:[address] [facility] Comment: eGFR has not been [...] mL/min/1.7 3 sq meter 05/26/2021 7:[address] [facility] ANION GAP 11 8 - 16 mmol/L 05/26/2021 7:23 AM CDT [facility] LABORATORY SERVICES - [facility] Blood Collection / Unknown 05/26/2021 4:30 AM CDT 05/26/2021 6:22 AM CDT us External Provider [facility] CHEMISTRY ORDERABLES Jennie l Result [facility] LABORATORY SERVICES - [facility] CLIA# [id number] [place] [address] documented in this encounter Visit Diagnoses Not on filedocumented in this encounter
--- NOTE | 2025-06-21 15:49 | ED.GENADULT ---
HPI - General Adult General Chief complaint: Weakness Stated complaint: extreme weakness Time Seen by Provider: 06/21/25 15:28 History of Present Illness HPI narrative: This is a 64-year-old morbidly obese bed-bound female presenting for failure to thrive. Patient says that she is no longer able of standing or getting out bed to go to the bathroom. She has home health who comes from 9:00 a.m. to 7:00 p.m. but she has no help at night. Per the patient She has been bed-bound since approximately 2020 after she had a prolonged hospitalization for necrotizing fasciitis. Patient denies any recent injury fevers chest pain difficulty breathing abdominal pain or urinary symptoms at of caused her current weakness. Patient does note she has had sciatica in her left leg for the last 3 weeks. Patient states this is causing her significant distress and feels depressed. When asked about suicide she says she has thought about it that she would never do something like that due to her family. Related Data Home Medications ?Medication ?Instructions ?Recorded ?Confirmed ?Last Taken ?Type atorvastatin 40 mg tablet 40 mg PO 08/09/23 12/14/24 12/13/24 History citalopram 40 mg tablet 40 mg PO DAILY 08/09/23 12/14/24 12/13/24 History famotidine 40 mg tablet 40 mg PO DAILY 08/09/23 12/14/24 12/13/24 History gabapentin 800 mg tablet 800 mg PO TID 08/09/23 12/14/24 12/13/24 History lisinopril 30 mg tablet 30 mg PO DAILY 08/09/23 12/14/24 12/13/24 History nortriptyline 25 mg capsule 25 mg PO TID 08/09/23 12/14/24 12/13/24 History oxybutynin chloride 5 mg tablet 5 mg PO HS 08/09/23 12/14/24 12/13/24 History primidone 250 mg tablet 250 mg PO BID 08/09/23 12/14/24 12/13/24 History ropinirole 3 mg tablet 3 mg PO 08/09/23 12/14/24 12/13/24 History insulin glargine 100 unit/mL (3 42 unit subcut QAM 12/15/23 12/14/24 12/13/24 History mL) subcutaneous pen (Basaglar KwikPen U-100 Insulin) insulin glargine 100 unit/mL (3 46 unit subcut QHS 12/15/23 12/14/24 12/13/24 History mL) subcutaneous pen (Basaglar KwikPen U-100 Insulin) metformin 500 mg tablet 500 mg PO BID 12/15/23 12/14/24 12/13/24 History tolnaftate 1 % topical powder 1 applic topical Q12HR PRN Rash 12/15/23 12/14/24 12/13/24 History budesonide-formoterol HFA 160 1 inh inhalation DAILY PRN 03/10/24 12/14/24 12/13/24 History mcg-4.5 mcg/actuation aerosol Shortness Of Breath inhaler (Symbicort) docusate sodium 100 mg capsule 100 mg PO PRN PRN Constipation 03/10/24 12/14/24 12/13/24 History Allergies Allergy/AdvReac Type Severity Reaction Status Date / Time morphine Allergy Severe Swelling Verified 09/30/24 13:53 of Lip/Tongue/Throat PMFSH Past Medical History Medical History Bedbound Restless leg syndrome Neuropathy Asthma Heart failure Anxiety and depression Suicide attempt x3, last attempt in Bipolar disorder Arthritis HLD (hyperlipidemia) Migraine COPD (chronic obstructive pulmonary disease) Hypertension Atrial fibrillation with RVR Tobacco abuse Degenerative joint disease of knee Diabetes mellitus with hyperglycemia Morbid obesity with BMI of 60.0-69.9, adult Cellulitis of groin necrotizing fasciitis Frequent falls MINA (acute kidney injury) Cellulitis 2006 Surgical History Surgical History 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 History of cholecystectomy History of heart artery stent Family History Family History Father Acute myocardial infarction Hypertension Grandparent Chronic obstructive pulmonary disease Diabetes mellitus Mother Congestive heart failure Diabetes mellitus Hypertension Other Leukemia Social History Social History Smoking packs per day: 2 Smoking cigarettes per day: 40.0 Years smoked: 47 Smoking pack-years: 94.00 Smoking status: Current every day smoker Tobacco type: cigarettes Second hand tobacco smoke exposure: Yes Alcohol intake: current Drinks per week: 1 Substance use: current Substance use type: marijuana Other substance usage details: alcohol couple times/year, currently uses CBD gummies and smokes marijuana Do You Feel Safe in your Home?: Yes Lack of Transportation: No Lack of Food: Never True Current Housing: I Have Housing Concerned About Future Housing: No Difficulty Paying Gas/Electric Bills: YES Difficulty Paying for Meds: No Currently Unemployed: No Education: Don't Know Difficulty w/ Childcare or Family Care: No Spiritual care concerns: No Exam Narrative: Physical exam is limited due to body habitus APPEARANCE: Morbidly obese, no apparent distress Head: atraumatic. EYES: EOMI, NOSE: Atraumatic NECK: Trachea midline RESPIRATORY: No increased rate of breathing, faint scattered expiratory wheezing, coarse lung sounds. CARDIOVASCULAR: RRR, ABDOMINAL: Non-distended obese MUSCULOSKELETAl: No obvious deformities NEURO: Alert. Cranial nerves 2-12 grossly intact. Sensation to light, touch and motor function intact for 4 extremities SKIN:: Warm, dry. Normal color PSYCHIATRIC: Normal affect Course Vital Signs Vital signs: Vital Signs Temperature 98.1 F 06/21/25 15:25 Pulse Rate 96 06/21/25 15:25 Respiratory Rate 20 06/21/25 15:25 Blood Pressure 108/65 06/21/25 15:25 Pulse Oximetry 95 06/21/25 15:25 Oxygen Delivery Room Air 06/21/25 15:25 Temperature 98.1 F 06/21/25 15:25 Pulse Rate 96 06/21/25 15:25 Respiratory Rate 20 06/21/25 15:25 Blood Pressure 108/65 06/21/25 15:25 Pulse Oximetry 95 06/21/25 15:25 Oxygen Delivery Room Air 06/21/25 15:25 Medical Decision Making MDM Narrative Medical decision making narrative: -Course: This is a 64-year-old female with morbid obesity presenting for failure to thrive. Patient is completely bedbound is no longer capable of taking care of herself at home. While she does have some home health care it does not meet her needs at night. Care coordination was consulted and they do not believe they they will be able to place the patient from the ED. She will be admitted to the hospital for debility/failure to thrive. Screening lab work UA and chest x-ray were obtained. Laboratory studies within normal limits. Urine not indicative infection. Chest x-ray interpreted as bilateral infiltrates representing edema or atypical pneumonia. Patient has no respiratory symptoms. Normal respiratory rate, 100% on room air. Will continue to monitor. Patient admitted. -DDX includes but is not limited to: Debility, morbid obesity ua, sepsis Vital Signs Vital Signs: Vital Signs Temperature 98.1 F 06/21/25 15:25 Pulse Rate 96 06/21/25 15:25 Respiratory Rate 20 06/21/25 15:25 Blood Pressure 108/65 06/21/25 15:25 Pulse Oximetry 95 06/21/25 15:25 Oxygen Delivery Room Air 06/21/25 15:25 Temperature 98.1 F 06/21/25 15:25 Pulse Rate 96 06/21/25 15:25 Respiratory Rate 20 06/21/25 15:25 Blood Pressure 108/65 06/21/25 15:25 Pulse Oximetry 95 06/21/25 15:25 Oxygen Delivery Room Air 06/21/25 15:25 Discharge Plan Discharge Clinical Impression: Debility, Morbid obesity, Sciatica Patient Disposition: Still a Patient Condition: Stable Patient Language: [place] Prescriptions: No Action atorvastatin 40 mg Tablet 40 mg PO HS citalopram 40 mg Tablet 40 mg PO DAILY famotidine 40 mg Tablet 40 mg PO DAILY ropinirole 3 mg Tablet 3 mg PO HS nortriptyline 25 mg Capsule 25 mg PO TID Rx Instructions: takes at 9,1400,2100 primidone 250 mg Tablet 250 mg PO BID gabapentin 800 mg Tablet 800 mg PO TID Rx Instructions: takes at 09,1400,2100 lisinopril 30 mg Tablet 30 mg PO DAILY oxybutynin chloride 5 mg Tablet 5 mg PO HS metformin 500 mg Tablet 500 mg PO BID insulin glargine [Basaglar KwikPen U-100 Insulin] 100 unit/mL (3 mL) insulin pen 42 unit SUBCUT QAM insulin glargine [Basaglar KwikPen U-100 Insulin] 100 unit/mL (3 mL) insulin pen 46 unit SUBCUT QHS tolnaftate 1 % powder 1 applic topical Q12HR PRN (Reason: Rash) Rx Instructions: Apply to groin folds until clear then use as needed. metoprolol tartrate 50 mg Tablet 50 mg PO Q12HR Qty: 60 1RF docusate sodium 100 mg capsule 100 mg PO PRN PRN (Reason: Constipation) budesonide-formoterol [Symbicort] 160-4.5 mcg/actuation HFA aerosol inhaler 1 inh INHALATION DAILY PRN (Reason: Shortness Of Breath) Xarelto 15 mg Tablet 15 mg PO BIDWM Qty: 50 0RF Xarelto 20 mg Tablet 20 mg PO DAILY@1700 Qty: 60 0RF meloxicam 15 mg tablet 15 mg PO DAILY PRN (Reason: pain (scale score 4-6)) Qty: 20 0RF Rx Instructions: Take with food if needed for pain (DME) FreeStyle Fredi 3 [place] Misc See Rx Instructions .Route Qty: 1 0RF Rx Instructions: use to monitor blood sugars (DME) FreeStyle Fredi 3 Plus Sensor Device See Rx Instructions .Route Qty: 2 3RF Rx Instructions: change every 15 days Trulicity 3 mg/0.5 mL pen injector 3 mg subcut WEEKLY Qty: 6 0RF Rx Instructions: NEEDS APPOINTMENT Follow-up/Referrals: Gurvinder Renteria MD [Primary Care Provider] -
[2025-06-21 15:53] LABS: Hematocrit 51.6 % (37.0-47.0); Hemoglobin 15.9 g/dL (12.0-15.0); Immature Granulocyte Percent A 0.6 % (0-0.5); Lymphocytes Absolute Auto 3.19 K/mm3 (0.9-3.2); Mean Corpuscular HGB Conc 30.8 g/dl (32-36); Mean Corpuscular Hemoglobin 28.0 pg (26-34); Mean Corpuscular Volume 90.8 fl (80-100); Nucleated Red Blood Cells Absolute Auto 0.000 K/mm3 (0.0-0.012); Nucleated Red Blood Cells Perc 0.0 % (0.0-0.2); Platelet Count Result 241 k/mm3 (150-375); Red Blood Count 5.68 M/mm3 (4.2-5.4); White Blood Count 10.9 K/mm3 (4.5-10.0)
[2025-06-21 16:00] VITALS: PULSE 93; RESP 22
[2025-06-21 16:11] LABS: Alanine Aminotransferase 16 U/L (6-35); Albumin Level 4.0 g/dL (3.5-5.1); Alkaline Phosphatase 97 U/L (38-126); Anion Gap 6 mmol/L (4-12); Aspartate Amino Transferase 21 U/L (14-36); Bilirubin,Total 0.6 mg/dL (0.2-1.3); Blood Urea Nitrogen 15 mg/dL (7-17); Calcium 9.2 mg/dL (8.4-10.2); Carbon Dioxide 25 mmol/L (22-30); Chloride 100 mmol/L (98-107); Estimated Glomerular Filt Rate > 60; Glucose 130 mg/dL (65-110); Potassium 4.6 mmol/L (3.4-5.0); Sodium 131 mmol/L (137-145); Total Protein 7.5 g/dL (6.3-8.2)
[2025-06-21 16:15] VITALS: PULSE 92; RESP 30
[2025-06-21 16:34] LABS: Add Urine Microscopic? NO; Appearance Urine Clear (Clear); Glucose Urine UA 1+ mg/dL (Negative); Leukocyte Esterase Ur Negative LEU/UL (Negative); Nitrate Urine Negative (Negative); Specific Grav Ur 1.011 (1.001-1.035)
[2025-06-21 16:45] VITALS: BP 110/67; PULSE 93; RESP 17; O2SAT 94
--- NOTE | 2025-06-21 17:03 | PCCCNOTE ---
1600- Called to the ED to find placement for pt, she is unable to care for herself at home any longer. Faxed a referral to [facility], no return call from them at [phone]. ED MD is admitting the patient for placement.
[2025-06-21 17:43] VITALS: BP 126/70; PULSE 92; RESP 17; O2SAT 97
--- NOTE | 2025-06-21 17:50 | P.HP_ITS ---
H&P: HPI History of Present Illness Date/Time: 06/21/25 17:50 Chief Complaint: Weakness Narrative: 64-year-old female presents the hospital due to being bed bound and unable to take care of herself at home. 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 Patient is unable to get out of bed on her own or take care of herself. Patient denies respiratory symptoms. Peyton ent has no complaints decides the fact that she cannot care for herself at home. She states that she does have a roommate however they do not provide assistance with her ADLs. Patient states that in 2020 she ended up with necrotizing fasciitis he and she has not been able to walk since then. She states that she did a couple pivot transfers when she was initially in therapy but that is about it. Patient does have a history of suicide attempt however she is not suicidal at this time. Lab work shows leukocytosis at 10.9, hemoglobin of 15.9, sodium of 131, glucose of 130, UA negative for infection. Chest x-ray shows diffuse bilateral interstitial infiltrates which may represent edema or atypical pneumonia. Review of Systems Review of Systems: 12 systems were reviewed and are negativ e except for as per HPI. [facility] Past Medical History Medical History (Updated 06/21/25 @ 21:39 by Almaz Soliz, WINIFRED) Bedbound Restless leg syndrome Neuropathy Asthma Heart failure Anxiety and depression Suicide attempt x3, last attempt in Bipolar disorder Arthritis HLD (hyperlipidemia) Migraine COPD (chronic obstructive pulmonary disease) Hypertension Atrial fibrillation with RVR Tobacco abuse Degenerative joint disease of knee Diabetes mellitus with hyperglycemia Morbid obesity with BMI of 60.0-69.9, adult Cellulitis of groin necrotizing fasciitis Frequent falls MINA (acute kidney injury) Cellulitis E, 2006 Surgical History Surgical History 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 History of cholecystectomy History of heart artery stent Family History Family History Father Acute myocardial infarction Hypertension Grandparent Chronic obstructive pulmonary disease Diabetes mellitus Mother Congestive heart failure Diabetes mellitus Hypertension Other Leukemia Social History Social History Smoking packs per day: 0.5 Smoking cigarettes per day: 10.0 Years smoked: 47 Smoking pack-years: 23.50 Smoking status: Current every day smoker Tobacco type: cigarettes Second hand tobacco smoke exposure: Yes Alcohol intake: current Drinks per week: 1 Substance use: current Substance use type: marijuana Other substance usage details: alcohol couple times/year, currently uses CBD gummies and smokes marijuana Do You Feel Safe in your Home?: Yes Lack of Transportation: No Lack of Food: Sometimes True Current Housing: I Have Housing Concerned About Future Housing: No Difficulty Paying Gas/Electric Bills: YES Difficulty Paying for Meds: YES Currently Unemployed: No Education: High School Diploma/GED Difficulty w/ Childcare or Family Care: No Spiritual care concerns: No Meds Home Medications and Allergies Home Medications ?Medication ?Instructions ?Recorded ?Confirmed ?Type citalopram 40 mg tablet 40 mg PO DAILY 08/09/23 06/21/25 History famotidine 40 mg tablet 40 mg PO DAILY 08/09/23 06/21/25 History gabapentin 800 mg tablet 800 mg PO TID 08/09/23 06/21/25 History lisinopril 30 mg tablet 30 mg PO DAILY 08/09/23 06/21/25 History nortriptyline 25 mg capsule 25 mg PO TID 08/09/23 06/21/25 History oxybutynin chloride 5 mg tablet 5 mg PO HS 08/09/23 06/21/25 History primidone 250 mg tablet 250 mg PO BID 08/09/23 06/21/25 History ropinirole 3 mg tablet 3 mg PO HS 08/09/23 06/21/25 History insulin glargine 100 unit/mL (3 42 unit subcut QAM 12/15/23 06/21/25 History mL) subcutaneous pen (Basaglar KwikPen U-100 Insulin) insulin glargine 100 unit/mL (3 46 unit subcut QHS 12/15/23 06/21/25 History mL) subcutaneous pen (Basaglar KwikPen U-100 Insulin) metformin 500 mg tablet 500 mg PO BID 12/15/23 06/21/25 History tolnaftate 1 % topical powder 1 applic topical Q12HR PRN Rash 12/15/23 06/21/25 History metoprolol tartrate 50 mg tablet 50 mg PO Q12HR #60 tabs 12/19/23 06/21/25 Rx budesonide-formoterol HFA 160 1 inh inhalation DAILY PRN 03/10/24 06/21/25 History mcg-4.5 mcg/actuation aerosol Shortness Of Breath inhaler (Symbicort) docusate sodium 100 mg capsule 100 mg PO PRN PRN Constipation 03/10/24 06/21/25 History blood-glucose sensor (FreeStyle #2 ea 10/07/24 06/21/25 Rx Fredi 3 Plus Sensor device) blood-glucose,hay baler,cont #1 ea 10/07/24 06/21/25 Rx (FreeStyle Fredi 3 [place]) rivaroxaban 20 mg tablet (Xarelto) 20 mg PO DAILY@1700 #60 tabs 12/16/24 06/21/25 Rx meloxicam 15 mg tablet 15 mg PO DAILY pain (scale score 06/21/25 06/21/25 History 4-6) Allergies Allergy/AdvReac Type Severity Reaction Status Date / Time morphine Allergy Severe Swelling Verified 09/30/24 13:53 of Lip/Tongue/Throat Vital Signs Vital Signs - 24 hr 06/21/25 15:25 06/21/25 16:00 06/21/25 16:15 Temperature 98.1 F Pulse Rate 96 93 92 Respiratory Rate 20 22 H 30 H Blood Pressure 108/65 Pulse Oximetry 95 Oxygen Delivery Room Air 06/21/25 16:45 06/21/25 17:43 Temperature Pulse Rate 93 92 Respiratory Rate 17 17 Blood Pressure 110/67 126/70 Pulse Oximetry 94 97 Oxygen Delivery Exam Narrative: General: well appearing, appears stated age. HEENT: normocephalic, atraumatic. Mucous membranes moist. EOMI, PERRLA, bilateral sclera anicteric, no conjunctival injection. Neck supple without JVD, lymphadenopathy, or bruit. Respiratory: clear to ascultation bilaterally. No rales/rhonic/wheezes. Cardiovascular: Regular rate and rhythm, normal S1-S2 upon ascultation. No murmurs, rubs, or clicks. PMI is nondisplaced, capillary refill less than 3 second. Abdomen: Obese Soft, round, no pulsatile masses, nondistended and nontender. No rebound, no guarding. No CVA tenderness, no hepatosplenomegaly. Bowel sounds present to all four quadrants. No high pitch or tinkling sounds, resonant to percussion. Extremities: No cyanosis, clubbing, or edema present. Pulses are palpable 2/2. Severely deconditioned Neuro: Alert and orientated x 4. PERRLA. Cranial nerves 2-12 intact without focal deficit. Skin: Warm, dry, and intact, without rash, erythema, or lesion. Does blue, good pedal pulse Psych: pleasant, cooperative, normal speech, normal affect, no hallucinations, no dysarthia H&P: Results Labs Labs: Short CBC 06/21/25 Range/Units 15:43 WBC 10.9 H (4.5-10.0) K/mm3 Hgb 15.9 H (12.0-15.0) g/dL Hct 51.6 H (37.0-47.0) % Plt Count 241 (150-375) k/mm3 BMP 06/21/25 15:43 Sodium 131 L Potassium 4.6 Chloride 100 Carbon Dioxide 25 BUN 15 D Creatinine 0.92 Glucose 130 H Calcium 9.2 Liver Function 06/21/25 Range/Units 15:43 Total Bilirubin 0.6 (0.2-1.3) mg/dL AST 21 (14-36) U/L ALT 16 (6-35) U/L Alkaline Phosphatase 97 (38-126) U/L Albumin 4.0 (3.5-5.1) g/dL Urine 06/21/25 Range/Units 16:25 Urine Color Yellow (Yellow) Urine Appearance Clear (Clear) Urine pH 5.5 (5.0-9.0) Ur Specific [place] 1.011 (1.001-1.035) Urine Protein Negative (Negative) mg/dL Urine Glucose (UA) 1+ H (Negative) mg/dL Assessment and Plan Assessment and plan (1) Failure to thrive: Status: Acute Assessment and Plan: Secondary to morbid obesity unable to care for self home Case management working on placement (2) Hypertension: Code(s): I10 - Essential (primary) hypertension Status: Acute Assessment and Plan: Continue lisinopril (3) T2DM (type 2 diabetes mellitus): Code(s): E11.9 - Type 2 diabetes mellitus without complications Status: Acute Assessment and Plan: Patient states that her blood sugars have been well controlled lately and she is no longer taking her long-acting Lantus. Accu-Cheks a.cSanthosh HS Diabetic diet SSI Hold metformin while in hospital (4) Morbid obesity: Code(s): E66.01 - Morbid (severe) obesity due to excess calories Status: Acute Assessment and Plan: Contributing to disability PT OT (5) COPD (chronic obstructive pulmonary disease): Code(s): J44.9 - Chronic obstructive pulmonary disease, unspecified Status: Acute Assessment and Plan: Continue home inhaler (6) Chronic pain: Code(s): G89.29 - Other chronic pain Status: Acute Assessment and Plan: Continue Requip, gabapentin, meloxicam Plan Patient has no acute medical issues and is medically cleared for discharge Quality VTE Prophylaxis VTE prophylaxis: mechanical ordered and pharmacologic ordered Hospitalist MIPS Advance Care Plan I have confirmed that the patient's Advanced Care Plan is present, code status is documented, or surrogate decision maker is listed in patient medical record.: Yes Medication Reconciliation I have utilized all available resources to obtain, update and review the patients current medications (includes all prescriptions, OTC, herbals, cannabis, and nutritional supplements).: Yes
--- NOTE | 2025-06-21 18:57 | PCCCNOTE ---
183-Maria Victoria from [facility] called and accepted pt, however admission has already begun. Pt can go tomorrowif able to be discharged. Maria Victoria will keep in contact with us tomorrow.
--- NOTE | 2025-06-21 19:19 | ADMGEN ---
This patient, Juliann Moody, was admitted to Medical Room 345-. Patient/family oriented to hospital policies and general routines including ID bracelet, bed and alarms, visiting hours, pain management, procedures, bathroom and other care routines, personal items, smoking policy, room service/diet, and visiting hours. Information on how to activate the Rapid Response Team has been discussed. Patient/Family are encouraged to report perceived risks to care and to ask questions if they do not understand what they are told or what they should do.
[2025-06-21] MEDS: GABAPENTIN 400 MG CAPSULE 800 MG PO (20:53)
[2025-06-21] MEDS: PRIMIDONE 250 MG TABLET PO (20:53)
[2025-06-21] MEDS: ACETAMINOPHEN 325 MG TABLET 650 MG PO (21:33)
[2025-06-21 21:55] VITALS: BP 129/68; PULSE 92; RESP 16; TEMP 37.1; O2SAT 93
[2025-06-22 06:00] VITALS: BP 149/64; PULSE 64; RESP 16; TEMP 36.8; O2SAT 95
[2025-06-22 06:21] LABS: Hematocrit 49.2 % (37.0-47.0); Hemoglobin 15.8 g/dL (12.0-15.0); Immature Granulocyte Percent A 0.7 % (0-0.5); Lymphocytes Absolute Auto 2.96 K/mm3 (0.9-3.2); Mean Corpuscular HGB Conc 32.1 g/dl (32-36); Mean Corpuscular Hemoglobin 28.3 pg (26-34); Mean Corpuscular Volume 88.2 fl (80-100); Nucleated Red Blood Cells Absolute Auto 0.000 K/mm3 (0.0-0.012); Nucleated Red Blood Cells Perc 0.0 % (0.0-0.2); Platelet Count Result 228 k/mm3 (150-375); Red Blood Count 5.58 M/mm3 (4.2-5.4); White Blood Count 9.0 K/mm3 (4.5-10.0)
[2025-06-22 06:54] LABS: Anion Gap 7 mmol/L (4-12); Blood Urea Nitrogen 15 mg/dL (7-17); Calcium 9.2 mg/dL (8.4-10.2); Carbon Dioxide 30 mmol/L (22-30); Chloride 101 mmol/L (98-107); Estimated CRCL calculation 75 ml/min; Estimated Glomerular Filt Rate 53; Glucose 153 mg/dL (65-110); Potassium 4.1 mmol/L (3.4-5.0); Sodium 138 mmol/L (137-145)
--- NOTE | 2025-06-22 07:39 | PM.IMPN ---
Progress Note: A&P Assessment and Plan (1) Failure to thrive: Status: Acute Assessment and Plan: Failure to thrive secondary to morbid obesity and bed bound status since 2020 PT/OT Care coordination following (2) Hypertension: Code(s): I10 - Essential (primary) hypertension Status: Acute Assessment and Plan: Chronic, continue home medication - lisinopril 30 mg daily - blood pressures remain stable, continue to monitor (3) T2DM (type 2 diabetes mellitus): Code(s): E11.9 - Type 2 diabetes mellitus without complications Status: Acute Assessment and Plan: - hypoglycemia protocol - POC blood glucose ACHS - home medication - none - correct regimen ordered - high dose SSI TIDWM - A1C ordered (4) Atrial fibrillation: Code(s): I48.91 - Unspecified atrial fibrillation Status: Acute Assessment and Plan: - EKG: sinus rhythm - Current home medication: not on a rate controlling agent - Anticoagulation: xarelto 20 mg daily (5) COPD (chronic obstructive pulmonary disease): Code(s): J44.9 - Chronic obstructive pulmonary disease, unspecified Status: Acute Assessment and Plan: Chronic, does not appear in acute exacerbation Continue home medication Subjective Date/time seen: 06/22/25 07:39 Interval history: 64 year old female with past medical history of hypertension, diabetes, COPD, Afib on anticoagulation and depression presents to the hospital for weakness. Review of Systems Review of Systems: All systems reviewed & are unremarkable except as noted in HPI and below Exam Narrative: AF General: well nourished, well-developed female in no acute respiratory distress who is nontoxic appearing, lying semi recumbent in bed. HEENT: Normocephalic. Atraumatic. Pupils equal round reactive to light. Extraocular movement intact. Sclera clear and anicteric. Nares patent. No oral lesions. Moist mucous membranes. Tongue is midline. Palate gordo symmetrically. No facial asymmetry. Neck: Neck was supple. No dominant adenopathy, thyromegaly or masses. 2+ carotid upstrokes without bruits. Chest: Lungs are clear to auscultation bilaterlly. No wheezes or crackles. CV: Heart was regular rate and rhythm. S1-S2. No murmurs, gallops, or rubs. Abd: Abdomen was soft. Nontender. Nondistended. Postive bowel sounds. No organomegaly or masses. Ext: No clubbing, cyanosis, or edema. 2+ DP pulses bilaterally. Neuro: Patient is alert and oriented x4. Strenth is 5/5 in both upper and lower extremities. Cranial nerves 2-12 are intact. Speech is clear. Psych: Normal nood and affect. Patient is pleasant and cooperative. Skin: Warm and dry. No rashes noted. Objective Data Vital Signs Vital Signs: Vital Signs - 24 hr 06/21/25 15:25 06/21/25 16:00 06/21/25 16:15 Temperature 98.1 F Pulse Rate 96 93 92 Respiratory Rate 20 22 H 30 H Blood Pressure 108/65 Pulse Oximetry 95 Oxygen Delivery Room Air 06/21/25 16:45 06/21/25 17:43 06/21/25 21:55 Temperature 98.7 F Pulse Rate 93 92 92 Respiratory Rate 17 17 16 Blood Pressure 110/67 126/70 129/68 Pulse Oximetry 94 97 93 Oxygen Delivery 06/22/25 06:00 Temperature 98.2 F Pulse Rate 64 Respiratory Rate 16 Blood Pressure 149/64 H Pulse Oximetry 95 Oxygen Delivery Intake/Output Intake/Output: Intake & Output 06/19/25 06/20/25 06/21/25 06/22/25 23:59 23:59 23:59 23:59 Output Total 200 500 Balance -200 -500 Meds/Results Medications: Active Medications Generic Name Dose Route Start Last Admin Trade Name Freq PRN Reason Stop Dose Admin Acetaminophen 650 mg 06/21/25 17:56 06/21/25 21:33 Acetaminophen 325 Mg Tablet PO 650 mg Q4H PRN Administration Mild Pain (1-3) or Fever Citalopram Hydrobromide 40 mg 06/22/25 09:00 Citalopram Hydrobromide 20 Mg Tablet PO DAILY FAHAD Dextrose 12.5 gm 06/21/25 17:56 Dextrose 50% 25 Gm/50 Ml Syringe IV PUSH PRN PRN Hypoglycemia Protocol Docusate Sodium 100 mg 06/21/25 20:00 Docusate Sodium 100 Mg Capsule PO DAILY PRN Constipation Famotidine 40 mg 06/22/25 09:00 Famotidine 20 Mg Tablet PO DAILY FAHAD Gabapentin 800 mg 06/21/25 20:25 06/21/25 20:53 Gabapentin 400 Mg Capsule PO 800 mg TID FAHAD Administration Glucagon 1 mg 06/21/25 17:56 Glucagon For Inj 1 Mg Vial IM PRN PRN Hypoglycemia Protocol Glucose 15 gm 06/21/25 17:56 Glucose Oral Gel 15 Gm Of Glucse In 37.5 Gm Tube PO PRN PRN Hypoglycemia Protocol Dextrose 1,000 mls @ 100 mls/hr 06/21/25 17:56 Dextrose 5% 1,000 Ml IVPB PRN PRN Hypoglycemia Protocol Insulin Aspart 4 - 8 units 06/22/25 08:00 Insulin Aspart (*Bkc) 100 Units/Ml SUB-Q TIDWM [facility] Protocol Lisinopril 30 mg 06/22/25 09:00 Lisinopril 10 Mg Tablet PO DAILY [facility] Meloxicam 15 mg 06/22/25 09:00 Meloxicam 7.5 Mg Tablet PO DAILY [facility] Oxybutynin Chloride 5 mg 06/21/25 21:00 06/21/25 20:53 Oxybutynin Chloride 5 Mg Tablet PO 5 mg HS [facility] Administration Primidone 250 mg 06/21/25 20:25 06/21/25 20:53 Primidone 250 Mg Tablet PO 250 mg BID [facility] Administration Rivaroxaban 20 mg 06/21/25 20:05 06/21/25 20:52 Rivaroxaban 20 Mg Tablet PO Not Given DAILY@1700 [facility] Ropinirole HCl 3 mg 06/21/25 21:00 06/21/25 20:53 Ropinirole Hcl 1 Mg Tablet PO 3 mg HS [facility] Administration Fluticasone/Salmeterol 2 puff 06/21/25 20:25 06/22/25 05:36 Fluticasone/Salmeterol 115-21 Mcg Inhaler 1 Puff INHALATION Not Given Q12HRT [facility] Radiology Results: ITS Impressions Chest X-Ray 06/21/25 16:37 Impression: 1: Diffuse bilateral interstitial infiltrates which may represent edema or atypical pneumonia. Labs Labs: Laboratory Results - last 24 hr 06/21/25 06/21/25 06/22/25 15:43 16:25 06:16 WBC 10.9 H 9.0 RBC 5.68 H 5.58 H Hgb 15.9 H 15.8 H Hct 51.6 H 49.2 H MCV 90.8 88.2 MCH 28.0 28.3 MCHC 30.8 L 32.1 RDW 14.8 H 14.7 H Plt Count 241 228 MPV 9.2 8.9 Immature Gran % (Auto) 0.6 H 0.7 H Neut % (Auto) 62.5 57.5 Lymph % (Auto) 29.3 32.9 Anson % (Auto) 5.8 6.7 Eos % (Auto) 1.2 1.8 Baso % (Auto) 0.6 0.4 Lymph # (Auto) 3.19 2.96 Anson # (Auto) 0.6 0.6 Eos # (Auto) 0.1 0.2 Baso # (Auto) 0.1 0.0 Abs Immat Gran (auto) 0.06 H 0.06 H Absolute Neuts (auto) 6.8 H 5.2 Absolute Nucleated RBC 0.000 0.000 Nucleated RBC % 0.0 0.0 Sodium 131 L 138 Potassium 4.6 4.1 Chloride 100 101 Carbon Dioxide 25 30 Anion Gap 6 7 BUN 15 D 15 Creatinine 0.92 1.05 H Estim Creat Clear Calc Not Reportable 75 Estimated GFR > 60 53 L Glucose 130 H 153 H Calcium 9.2 9.2 Total Bilirubin 0.6 AST 21 ALT 16 Alkaline Phosphatase 97 Total Protein 7.5 Albumin 4.0 Urine Color Yellow Urine Appearance Clear Urine pH 5.5 Ur Specific Dupont 1.011 Urine Protein Negative Urine Glucose (UA) 1+ H Urine Ketones Negative Ur Blood (Man) Negative Urine Nitrate Negative Urine Bilirubin Negative Urine Urobilinogen 0.2 Leukocyte Esterase Rfl Negative
[2025-06-22 08:07] VITALS: O2SAT 93
[2025-06-22] MEDS: FLUTICASONE/SALMETEROL 115-21 MCG INHALER 1 PUFF 2 PUFF INHALATION (08:07)
[2025-06-22] MEDS: GABAPENTIN 400 MG CAPSULE 800 MG PO ×3 (08:29→17:19)
[2025-06-22] MEDS: MELOXICAM 7.5 MG TABLET 15 MG PO (08:30)
[2025-06-22] MEDS: PRIMIDONE 250 MG TABLET PO ×2 (08:30→17:20)
[2025-06-22] MEDS: CITALOPRAM HYDROBROMIDE 20 MG TABLET 40 MG PO (08:30)
[2025-06-22] MEDS: FAMOTIDINE 20 MG TABLET 40 MG PO (08:30)
--- OUTSIDE RECORDS SUMMARY | 2025-06-22 09:51 | XMS_ITS | Encounter Summary ---
Author Organization [facility] Address [address] [place] [address] Care Team Providers Care Senior Software Analyst Name Role Phone Unavailable Primary Care Provider Unavailabl e Encounter Details Date Type Department Care Team (Late st Contact Info) Description 05/19/2021 Lab Requisition [facility] [address] [place] [address] [facility], External Provider [address] [place] [address] Social History Tobacco Use Types Packs/Day Years [...] - 14.7 Seconds 05/19/2021 4:12 AM CDT [facility] INR 1.1 0.9 - 1.1 05/19/2021 4:12 AM CDT [facility] Blood Collection / Unknown 05/19/2021 3:20 AM CDT 05/19/2021 3:49 AM CDT External Provider [facility] HEMATOLOGY ORDERABLES Fin al Result [facility] CLIA# [id number] [place] [address] * (ABNORMAL) LACTIC ACID (05/19/2021 3:20 AM CDT) LACTIC ACID 4.5(H) <=2.0 mmol/L 05/19/2021 4:19 AM CDT [facility] Blood Collection / Unknown 05/19/2021 3:20 AM CDT 05/19/2021 3:49 AM CDT External Provider [facility] CHEMISTRY ORDERABLES Jennie l Result [facility] CLIA# [id number] [place] [address] * PTT (05/19/2021 3:20 AM CDT) PTT 23.8 23.1 - 37.1 seconds 05/19/2021 4:12 AM CDT [facility] Blood Collection / Unknown 05/19/2021 3:20 AM CDT 05/19/2021 3:49 AM CDT External Provider [facility] HEMATOLOGY ORDERABLES Fin al Result [facility] CLIA# [id number] [place] [address] * (ABNORMAL) CBC WITH DIFFERENTIAL (05/19/2021 3:20 AM CDT) WBC 26.7(H) 4.5 - 10.5 K/uL 05/19/2021 4:03 AM CDT [facility] RBC 2.46(L) 3.90 - 4.90 M/uL 05/19/2021 4:03 AM CDT [facility] HEMOGLOBIN 6.9(LL) 11.8 - 14.8 g/dL 05/19/2021 4:03 AM CDT [facility] HEMATOCRIT 22.1(L) 35.5 - 44.0 % 05/19/2021 4:03 AM CDT [facility] MCV 89.7 82.0 - 99.0 fL 05/19/2021 4:03 AM CDT [facility] MCH 27.8 27.8 - 34.5 pg 05/19/2021 4:03 AM CDT [facility] MCHC 31.0(L) 32.5 - 35.5 g/dL 05/19/2021 4:03 AM CDT [facility] RDW 15.4(H) 11.5 - 14.5 % 05/19/2021 4:03 AM CDT [facility] PLATELETS 329 160 - 420 K/uL 05/19/2021 4:03 AM CDT [facility] MPV 8.8 8.7 - 12.7 fL 05/19/2021 4:03 AM CDT [facility] NEUTROPHILS 57 % 05/19/2021 4:03 AM CDT [facility] LYMPHOCYTES 30 % 05/19/2021 4:03 AM CDT [facility] MONOCYTES 10 % 05/19/2021 4:03 AM CDT [facility] EOSINOPHILS 2 % 05/19/2021 4:03 AM CDT [facility] BASOPHILS 0 % 05/19/2021 4:03 AM CDT [facility] NEUTROPHIL ABSOLUTE 15.30(H) 1.90 - 7.00 K/uL 05/19/2021 4:03 AM CDT [facility] LYMPHOCYTE ABSOLUTE 8.10(H) 0.70 - 4.50 K/uL 05/19/2021 4:03 AM CDT [facility] MONOCYTE ABSOLUTE 2.60(H) 0.10 - 1.30 K/uL 05/19/2021 4:03 AM CDT [facility] EOSINOPHIL ABSOLUTE 0.60 0.00 - 0.70 K/uL 05/19/2021 4:03 AM CDT [facility] BASOPHILS ABSOLUTE 0.10 0.00 - 0.20 K/uL 05/19/2021 4:03 AM CDT [facility] Blood Collection / Unknown 05/19/2021 3:20 AM CDT 05/19/2021 3:49 AM CDT us External Provider [facility] HEMATOLOGY ORDERABLES Fin al Result [facility] CLIA# [id number] [place] [address] * (ABNORMAL) COMPREHENSIVE METABOLIC PANEL (05/19/2021 3:20 AM CDT) SODIUM 134(L) 136 - 145 mmol/L 05/19/2021 4:26 AM CDT [facility] POTASSIUM 6.6(HH) 3.4 - 5.1 mmol/L 05/19/2021 4:26 AM CDT [facility] CHLORIDE 99 98 - 107 mmol/L 05/19/2021 4:26 AM CDT [facility] CO2 18(L) 22 - 29 mmol/L 05/19/2021 4:26 AM CDT [facility] CALCIUM 8.7 8.6 - 10.4 mg/dL 05/19/2021 4:26 AM [facility] BUN 64(H) 6 - 20 mg/dL 05/19/2021 4:26 AM [facility] CREATININE 4.16(H) 0.51 - 0.95 mg/dL 05/19/2021 4:26 AM [facility] GLUCOSE 280(H) 74 - 99 mg/dL 05/19/2021 4:26 AM [facility] TOTAL PROTEIN 6.6 6.3 - 8.7 g/dL 05/19/2021 4:26 AM [facility] ALBUMIN 2.5(L) 3.5 - 5.2 g/dL 05/19/2021 4:26 AM [facility] BILIRUBIN TOTAL 0.2(L) 0.3 - 1.2 mg/dL 05/19/2021 4:26 AM [facility] ALKALINE PHOSPHATASE 94 40 - 150 U/L 05/19/2021 4:26 AM [facility] AST 31 0 - 33 U/L 05/19/2021 4:26 AM [facility] ALT 19 0 - 33 U/L 05/19/2021 4:26 AM [facility] GFR 11 mL/min/1.7 3 sq meter 05/19/2021 4:26 AM [facility] Comment: eGFR has not been validated for [...] mL/min/1.7 3 sq meter 05/19/2021 4:26 AM [facility] ANION GAP 17(H) 8 - 16 mmol/L 05/19/2021 4:26 AM CDT [facility] Blood Collection / Unknown 05/19/2021 3:20 AM CDT 05/19/2021 3:49 AM CDT us External Provider [facility] CHEMISTRY ORDERABLES Jennie painter Result [facility] CLIA# [id number] [place] [address] documented in this encounter Visit Diagnoses Not on filedocumented in this encounter
--- OUTSIDE RECORDS SUMMARY | 2025-06-22 09:51 | XMS_ITS | Encounter Summary ---
Author Organization [facility] Address [address] [place] [address] Care Team Providers Care Data Report Analyst Name Role Phone Murali Silva MD Primary Care Provider [phone] Karime Aguilera RN [facility] Gurvinder Stephens MD Primary Care Provider [phone] Reason for Visit * Reason Onset Date Comments Patient Requested Call 11/05/2021 Encounter Details Date Type Department Care Team (Late st Contact Info) Description 11/05/2021 Telephone [facility] [address] [place] [address] Christy Khan MD [id number] [phone] Patient Requested Call Social History Tobacco Use [...] Pari Denton RN - 11/05/2021 12:15 PM HEADLINER INSTALLER RN called patient. Pt stating she does not want to stand as her knees buckle. Pt made aware that office does have lower exam tables. Pt stating she is coming to the office visit in electric wheelchair and will also be accompanied by home health. Will also pass along to MD and emergency medical service manager IMANI Tesfaye LINER INSTALLER * Telephone Encounter - Holly Yates - 11/05/2021 12:08 PM CST Patient is requesting a call back to confirm accommodations for her appt. She recently had surgery and won't be able to get on a high table for her exam. Please advise: [phone] LINER INSTALLER documented in this encounter Plan of Treatment Not on file documented as of this encounter Visit Diagnoses Not on filedocumented in this encounter Care Teams Data Report Analyst Relationship Specialty Start Date End Date Murali Silva MD [address] [place] [address] PCP - General 03/03/18 12/31/21 Gurvinder Renteria MD [address] [place] [address] PCP - General 01/01/22 Karime Aguilera RN 05/07/18 documented as of this encounter
--- OUTSIDE RECORDS SUMMARY | 2025-06-22 09:51 | XMS_ITS | Encounter Summary ---
Author Organization [facility] Address [address] [place] [address] Care Team Providers Care Director Of Direct Marketing Name Role Phone Karime Aguilera RN, Haresh K MD Primary Care Provider [phone] Reason for Visit * Reason Onset Date Comments Nurse Only 01/18/2025 Encounter Details Date Type Department Care Team (Late st Contact Info) Description 01/18/2025 Telephone [facility] [address] [facility] [address] [place] [address] Christy Khan MD [address] [facility] [address] [place] [address] Nurse Only Social History Tobacco [...] her to give our office a call. EOTYPER * Telephone Encounter - Tito Dunaway - 01/18/2025 1:04 PM CST Muna returning missed call for Juliann and request a nurse calls Juliann phone Muna will be occupied with another patient and wont be able to answer EOTYPER documented in this encounter Plan of Treatment Not on file documented as of this encounter Visit Diagnoses Not on filedocumented in this encounter Care Teams Director Of Direct Marketing Relationship Specialty Start Date End Date Gurvinder Renteria MD [address] [place] [address] PCP - General 01/01/22 Karime Aguilera RN 05/07/18 documented as of this encounter
--- OUTSIDE RECORDS SUMMARY | 2025-06-22 09:51 | XMS_ITS | Encounter Summary ---
Author Organization [facility] Address [address] [place] [address] Care Team Providers Care Lpn Name Role Phone Murali Silva MD Primary Care Provider [phone] Karime Aguilera RN [facility] Gurvinder Stephens MD Primary Care Provider [phone] Reason for Visit * Reason Onset Date Comments Update 05/06/2018 Encounter Details Date Type Department Care Team (Late st Contact Info) Description 05/06/2018 Telephone [facility] [address] [place] [address] Christy Khan MD [address] [address] Update Social History Tobacco Use [...] like a call back please. Pt callback #[phone] documented in this encounter Plan of Treatment Not on file documented as of this encounter Visit Diagnoses Not on filedocumented in this encounter Care Teams Lpn Relationship Specialty Start Date End Date Murali Silva MD [address] [place] [address] PCP - General 03/03/18 12/31/21 Gurvinder Renteria MD [address] [place] [address] PCP - General 01/01/22 Karime Aguilera RN 05/07/18 documented as of this encounter
--- OUTSIDE RECORDS SUMMARY | 2025-06-22 09:51 | XMS_ITS | Encounter Summary ---
Author Organization [facility] Address [address] [place] [address] Care Team Providers Care Air Traffic Supervisor Name Role Phone Unavailable Primary Care Provider Unavailabl e Encounter Details Date Type Department Care Team (Late st Contact Info) Description 06/18/2021 Lab Requisition [facility] Laboratory Services [address] [place] [address] [place] [address] [place] [address] Social History Tobacco Use Types [...] SEDIMENTATION RATE (06/18/2021 4:15 AM CDT) Pathologist [facility] ESR (SEDIMENTATION RATE) 51(H) 0 - 30 mm/Hr 06/18/2021 10:14 AM CDT [facility] Blood Collection / Unknown 06/18/2021 4:15 AM CDT 06/18/2021 8:44 AM CDT Nargis Guy MD HEMATOLOGY ORDERABLES Final Resu lt Performing Organization Address City/[facility]/ZIP Co de Phone Number [facility] CLIA# [id number], [place] [address] * RETICULOCYTES (06/18/2021 4:15 AM CDT) Pathologist [facility] RETICULOCYTES 2.0 0.4 - 2.0 % 06/18/2021 8:52 AM CDT [facility] IMMATURE RETIC FRACTION 0.6 % 06/18/2021 8:52 AM CDT [facility] RETICULOCYTE, ABSOLUTE 0.0651 0.0250 - 0.1480 10e6/uL 06/18/2021 8:52 AM CDT [facility] Blood Collection / Unknown 06/18/2021 4:15 AM CDT 06/18/2021 8:44 AM CDT Nargis Guy MD HEMATOLOGY ORDERABLES Final Resu lt Performing Organization Address City/[facility]/ZIP Co de Phone Number [facility] CLIA# [id number] [place] [address] * (ABNORMAL) PREALBUMIN (06/18/2021 4:15 AM CDT) PREALBUMIN 14(L) 20 - 40 mg/dL 06/18/2021 11:37 AM CDT [facility] Blood Collection / Unknown 06/18/2021 4:15 AM CDT 06/18/2021 8:15 AM CDT Nargis Guy MD CHEMISTRY ORDERABLES Final Resul t [facility] CLIA# [id number] [address] [place] [address] * (ABNORMAL) IRON, TIBC, AND PERCENT SATURATION (06/18/2021 4:15 AM CDT) IRON 34(L) 37 - 145 ug/dL 06/18/2021 8:54 AM CDT [facility] TIBC 146(L) 265 - 497 ug/dL 06/18/2021 8:54 AM CDT [facility] IRON % SATURATION 23 20 - 55 % 06/18/2021 8:54 AM CDT [facility] Blood Collection / Unknown 06/18/2021 4:15 AM CDT 06/18/2021 8:18 AM CDT Nargis Guy MD CHEMISTRY ORDERABLES Final Resul t [facility] CLIA# [id number] [place] [address] * (ABNORMAL) C-REACTIVE PROTEIN (06/18/2021 4:15 AM CDT) CRP 51.3(H) <5.0 mg/L 06/18/2021 8:50 AM CDT [facility] Blood Collection / Unknown 06/18/2021 4:15 AM CDT 06/18/2021 8:18 AM CDT Nargis Guy MD CHEMISTRY ORDERABLES Final Resul t [facility] CLIA# [id number] [place] [address] * (ABNORMAL) CBC WITH DIFFERENTIAL (06/18/2021 4:15 AM CDT) [facility] WBC 7.9 4.5 - 10.5 K/uL 06/18/2021 8:52 AM CDT [facility] RBC 3.30(L) 3.90 - 4.90 M/uL 06/18/2021 8:52 AM CDT [facility] HEMOGLOBIN 9.0(L) 11.8 - 14.8 g/dL 06/18/2021 8:52 AM CDT [facility] HEMATOCRIT 28.2(L) 35.5 - 44.0 % 06/18/2021 8:52 AM CDT [facility] MCV 85.3 82.0 - 99.0 fL 06/18/2021 8:52 AM CDT [facility] MCH 27.3(L) 27.8 - 34.5 pg 06/18/2021 8:52 AM CDT [facility] MCHC 32.0(L) 32.5 - 35.5 g/dL 06/18/2021 8:52 AM CDT [facility] RDW 15.8(H) 11.5 - 14.5 % 06/18/2021 8:52 AM CDT [facility] PLATELETS 379 160 - 420 K/uL 06/18/2021 8:52 AM CDT [facility] MPV 7.4(L) 8.7 - 12.7 fL 06/18/2021 8:52 AM CDT [facility] NEUTROPHILS 59 % 06/18/2021 8:52 AM CDT [facility] LYMPHOCYTES 28 % 06/18/2021 8:52 AM CDT [facility] MONOCYTES 8 % 06/18/2021 8:52 AM CDT [facility] EOSINOPHILS 4 % 06/18/2021 8:52 AM CDT [facility] BASOPHILS 1 % 06/18/2021 8:52 AM CDT [facility] NEUTROPHIL ABSOLUTE 4.70 1.90 - 7.00 K/uL 06/18/2021 8:52 AM CDT [facility] LYMPHOCYTE ABSOLUTE 2.20 0.70 - 4.50 K/uL 06/18/2021 8:52 AM CDT [facility] MONOCYTE ABSOLUTE 0.70 0.10 - 1.30 K/uL 06/18/2021 8:52 AM CDT [facility] EOSINOPHIL ABSOLUTE 0.30 0.00 - 0.70 K/uL 06/18/2021 8:52 AM CDT [facility] BASOPHILS ABSOLUTE 0.00 0.00 - 0.20 K/uL 06/18/2021 8:52 AM CDT [facility] Blood Collection / Unknown 06/18/2021 4:15 AM CDT 06/18/2021 8:44 AM CDT us Nargis Guy MD HEMATOLOGY ORDERABLES Final Resu lt [facility] CLIA# [id number] [address] [place] [address] * (ABNORMAL) COMPREHENSIVE METABOLIC PANEL (06/18/2021 4:15 AM CDT) SODIUM 140 136 - 145 mmol/L 06/18/2021 8:50 AM CDT [facility] POTASSIUM 3.7 3.4 - 5.1 mmol/L 06/18/2021 8:50 AM CDT [facility] CHLORIDE 105 98 - 107 mmol/L 06/18/2021 8:50 AM [facility] CO2 23 22 - 29 mmol/L 06/18/2021 8:50 AM [facility] CALCIUM 8.6 8.6 - 10.4 mg/dL 06/18/2021 8:50 AM [facility] BUN 14 6 - 20 mg/dL 06/18/2021 8:50 AM [facility] CREATININE 1.10(H) 0.51 - 0.95 mg/dL 06/18/2021 8:50 AM [facility] GLUCOSE 98 74 - 99 mg/dL 06/18/2021 8:50 AM [facility] TOTAL PROTEIN 5.7(L) 6.3 - 8.7 g/dL 06/18/2021 8:50 AM [facility] ALBUMIN 2.4(L) 3.5 - 5.2 g/dL 06/18/2021 8:50 AM [facility] BILIRUBIN TOTAL 0.2(L) 0.3 - 1.2 mg/dL 06/18/2021 8:50 AM [facility] ALKALINE PHOSPHATASE 114 40 - 150 U/L 06/18/2021 8:50 AM [facility] AST 25 0 - 33 U/L 06/18/2021 8:50 AM [facility] ALT 23 0 - 33 U/L 06/18/2021 8:50 AM [facility] GFR 51 mL/min/1.7 3 sq meter 06/18/2021 8:50 AM [facility] Comment: eGFR has not been validated for [...] 3 sq meter 06/18/2021 8:50 AM CDT [facility] ANION GAP 12 8 - 16 mmol/L 06/18/2021 8:50 AM CDT [facility] Blood Collection / Unknown 06/18/2021 4:15 AM CDT 06/18/2021 8:18 AM CDT us Nargis Guy MD CHEMISTRY ORDERABLES Final Resul t [facility] CLIA# [id number] [place] [address] documented in this encounter Visit Diagnoses Not on filedocumented in this encounter
--- OUTSIDE RECORDS SUMMARY | 2025-06-22 09:51 | XMS_ITS | Encounter Summary ---
Author Organization [facility] Address [address] [place] [address] Care Team Providers Care Prepared Foods Associate Name Role Phone Unavailable Primary Care Provider Unavailabl e Encounter Details Date Type Department Care Team (Late st Contact Info) Description 06/04/2021 Lab Requisition [facility] Laboratory Services [address] [place] [address] [place] [address] [place] [address] Social History Tobacco Use [...] - 30 mm/Hr 06/04/2021 9:54 AM CDT [facility] Blood Collection / Unknown 06/04/2021 4:55 AM CDT 06/04/2021 9:41 AM CDT us Nargis Guy MD HEMATOLOGY ORDERABLES Final Resu lt [facility] CLIA# [id number] [address] [place] [address] * (ABNORMAL) RETICULOCYTES (06/04/2021 4:55 AM CDT) RETICULOCYTES 3.2(H) 0.4 - 2.0 % 06/04/2021 9:49 AM CDT [facility] IMMATURE RETIC FRACTION 0.5 % 06/04/2021 9:49 AM CDT [facility] RETICULOCYTE, ABSOLUTE 0.1121 0.0250 - 0.1480 10e6/uL 06/04/2021 9:49 AM CDT [facility] Blood Collection / Unknown 06/04/2021 4:55 AM CDT 06/04/2021 9:41 AM CDT us Nargis Guy MD HEMATOLOGY ORDERABLES Final Resu lt [id number] [place] [address] * (ABNORMAL) PREALBUMIN (06/04/2021 4:55 AM CDT) Pathologist [facility] PREALBUMIN 13(L) 20 - 40 mg/dL 06/04/2021 2:28 PM CDT [facility] Blood Collection / Unknown 06/04/2021 4:55 AM CDT 06/04/2021 9:42 AM CDT Nargis Guy MD CHEMISTRY ORDERABLES Final Resul t Performing Organization Address City/[facility]/ZIP Co de Phone Number [facility]# [id number] [address] [place] [address] * (ABNORMAL) IRON, TIBC, AND PERCENT SATURATION (06/04/2021 4:55 AM CDT) [facility] IRON 27(L) 37 - 145 ug/dL 06/04/2021 10:17 AM CDT [facility] TIBC 144(L) 265 - 497 ug/dL 06/04/2021 10:17 AM CDT [facility] IRON % SATURATION 19(L) 20 - 55 % 06/04/2021 10:17 AM CDT [facility] Blood Collection / Unknown 06/04/2021 4:55 AM CDT 06/04/2021 9:42 AM CDT Nargis Guy MD CHEMISTRY ORDERABLES Final Resul t [facility] [id number] [place] [address] * HEMOGLOBIN A1C (06/04/2021 4:55 AM CDT) Pathologist [facility] HEMOGLOBIN A1C 5.5 <=5.6 % 06/04/2021 10:29 AM CDT [facility] EST. AVG GLUCOSE, A1C 111 mg/dL 06/04/2021 10:29 AM CDT [facility] Blood Collection / Unknown 06/04/2021 4:55 AM CDT 06/04/2021 10:10 AM CDT Narrative [facility] - 06/04/2021 10:29 AM CDT HGB A1C INTERPRETATION NORMAL: <5.7% PRE-DIABETES: 5.7 - 6.4% DIABETES: 6.5% OR GREATER Nargis Guy MD CHEMISTRY ORDERABLES Final Resul t [facility] CLIA# [id number] [address] [place] [address] * (ABNORMAL) C-REACTIVE PROTEIN (06/04/2021 4:55 AM CDT) Pathologist [facility] CRP 99.3(H) <5.0 mg/L 06/04/2021 10:17 AM CDT [facility] Blood Collection / Unknown 06/04/2021 4:55 AM CDT 06/04/2021 9:42 AM CDT Nargis Guy MD CHEMISTRY ORDERABLES Final Resul t [facility] CLIA# [id number] [address] [place] [address] * (ABNORMAL) CBC WITH DIFFERENTIAL (06/04/2021 4:55 AM CDT) WBC 5.7 4.5 - 10.5 K/uL 06/04/2021 9:49 AM CDT [facility] RBC 3.55(L) 3.90 - 4.90 M/uL 06/04/2021 9:49 AM CDT [facility] [employer] [facility] HEMOGLOBIN 10.2(L) 11.8 - 14.8 g/dL 06/04/2021 9:49 AM CDT [facility]ORY SERVICES [facility] HEMATOCRIT 31.4(L) 35.5 - 44.0 % 06/04/2021 9:49 AM CDT [facility] SERVICES [facility] MCV 88.5 82.0 - 99.0 fL 06/04/2021 9:49 AM CDT [facility] SERVICES [facility] MCH 28.8 27.8 - 34.5 pg 06/04/2021 9:49 AM CDT [facility]ORATORY SERVICES [facility] MCHC 32.6 32.5 - 35.5 g/dL 06/04/2021 9:49 AM CDT [facility] LABORATORY SERVICES [facility] RDW 15.5(H) 11.5 - 14.5 % 06/04/2021 9:49 AM CDT [facility] SERVICES [facility] PLATELETS 288 160 - 420 K/uL 06/04/2021 9:49 AM CDT [facility]ORY SERVICES [facility] MPV 8.5(L) 8.7 - 12.7 fL 06/04/2021 9:49 AM CDT [facility]ORY SERVICES [facility] NEUTROPHILS 53 % 06/04/2021 9:49 AM CDT [facility] SERVICES [facility] LYMPHOCYTES 33 % 06/04/2021 9:49 AM CDT [facility] SERVICES [facility] MONOCYTES 10 % 06/04/2021 9:49 AM CDT [facility]ORY SERVICES [facility] EOSINOPHILS 4 % 06/04/2021 9:49 AM CDT [facility] SERVICES [facility] BASOPHILS 1 % 06/04/2021 9:49 AM CDT [facility] SERVICES [facility] NEUTROPHIL ABSOLUTE 3.00 1.90 - 7.00 K/uL 06/04/2021 9:49 AM CDT [facility]ORY SERVICES [facility] LYMPHOCYTE ABSOLUTE 1.90 0.70 - 4.50 K/uL 06/04/2021 9:49 AM CDT [facility]ORY SERVICES [facility] MONOCYTE ABSOLUTE 0.50 0.10 - 1.30 K/uL 06/04/2021 9:49 AM CDT [facility] SERVICES [facility] EOSINOPHIL ABSOLUTE 0.20 0.00 - 0.70 K/uL 06/04/2021 9:49 AM CDT [facility] BASOPHILS ABSOLUTE 0.10 0.00 - 0.20 K/uL 06/04/2021 9:49 AM CDT [facility] Blood Collection / Unknown 06/04/2021 4:55 AM CDT 06/04/2021 9:41 AM CDT Nargis Guy MD HEMATOLOGY ORDERABLES Final Resu lt [facility] CLIA# [id number] [place] [address] * (ABNORMAL) COMPREHENSIVE METABOLIC PANEL (06/04/2021 4:55 AM CDT) SODIUM 143 136 - 145 mmol/L 06/04/2021 10:17 AM CDT [facility] POTASSIUM 4.0 3.4 - 5.1 mmol/L 06/04/2021 10:17 AM CDT [facility] [employer] [facility] CHLORIDE 107 98 - 107 mmol/L 06/04/2021 10:17 AM CDT [facility] CO2 24 22 - 29 mmol/L 06/04/2021 10:17 AM T [facility] CALCIUM 8.3(L) 8.6 - 10.4 mg/dL 06/04/2021 10:17 AM CDT [facility] BUN 8 6 - 20 mg/dL 06/04/2021 10:17 AM CDT [facility] CREATININE 1.01(H) 0.51 - 0.95 mg/dL 06/04/2021 10:17 AM CDT [facility] GLUCOSE 105(H) 74 - 99 mg/dL 06/04/2021 10:17 AM T [facility] TOTAL PROTEIN 5.7(L) 6.3 - 8.7 g/dL 06/04/2021 10:17 AM CDT [facility] ALBUMIN 2.5(L) 3.5 - 5.2 g/dL 06/04/2021 10:17 AM CDT [facility] BILIRUBIN TOTAL 0.2(L) 0.3 - 1.2 mg/dL 06/04/2021 10:17 AM T [facility] ALKALINE PHOSPHATASE 112 40 - 150 U/L 06/04/2021 10:17 AM T [facility] AST 38(H) 0 - 33 U/L 06/04/2021 10:17 AM CDT [facility] ALT 31 0 - 33 U/L 06/04/2021 10:17 AM T [facility] GFR 56 mL/min/1.7 3 sq meter 06/04/2021 10:17 AM T [facility] Comment: eGFR has not been [...] 3 sq meter 06/04/2021 10:17 AM CDT [facility] ANION GAP 12 8 - 16 mmol/L 06/04/2021 10:17 AM T [facility] Blood Collection / Unknown 06/04/2021 4:55 AM CDT 06/04/2021 9:42 AM CDT us Nargis Guy MD CHEMISTRY ORDERABLES Final Resul t [facility] CLIA# [id number] [place] [address] documented in this encounter Visit Diagnoses Not on filedocumented in this encounter
--- OUTSIDE RECORDS SUMMARY | 2025-06-22 09:51 | XMS_ITS | Encounter Summary ---
Author Organization [facility] Address [address] [place] [address] Care Team Providers Care Senior Compliance Officer Name Role Phone Unavailable Primary Care Provider Unavailabl e Encounter Details Date Type Department Care Team (Late st Contact Info) Description 05/28/[address] [facility] Laboratory Services [address] [place] [address] [place] [address] [place] [address] Social History Tobacco Use Types [...] ORDERABLES Final Resul t Performing Organization Address [facility] de Phone Number [facility] CLIA# [id number] [place] [address] * (ABNORMAL) VITAMIN D 25 HYDROXY (05/28/2021 5:00 AM CDT) VITAMIN D TOTAL (25OH) 14(L) 30 - 100 ng/mL 05/28/2021 12:[address] [facility] Blood Collection / Unknown 05/28/2021 5:00 AM CDT 05/28/2021 11:07 AM CDT Narrative [facility] - 05/28/2021 12:03 PM CDT Interpretive Data Chart: Deficient: 0 - 20 ng/mL Insufficient: 21 - 29 ng/mL Sufficient: 30 - 100 ng/mL Increased Risk of Hypercalciuria: >100 ng/ml Toxic: >150 ng/ml Nargis Guy MD CHEMISTRY ORDERABLES Final Resul t Performing Organization Address [facility] Co de Phone Number [facility] CLIA# [id number] [place] [address] * (ABNORMAL) CBC WITH DIFFERENTIAL (05/28/2021 5:00 AM CDT) Pathologist [facility] WBC 8.2 4.5 - 10.5 K/uL 05/28/2021 11:15 AM CDT [facility] [employer] [facility] RBC 3.22(L) 3.90 - 4.90 M/uL 05/28/2021 11:15 AM CDT [facility] [employer] [facility] HEMOGLOBIN 9.2(L) 11.8 - 14.8 g/dL 05/28/2021 11:15 AM CDT [facility] LABORATORY SERVICES - [facility] HEMATOCRIT 28.5(L) 35.5 - 44.0 % 05/28/2021 11:15 AM CDT [facility] LABORATORY SERVICES - [facility] MCV 88.3 82.0 - 99.0 fL 05/28/2021 11:15 AM CDT [facility]ORY SERVICES - [facility] MCH 28.7 27.8 - 34.5 pg 05/28/2021 11:15 AM CDT [facility] LABORATORY SERVICES [facility] MCHC 32.5 32.5 - 35.5 g/dL 05/28/2021 11:15 AM CDT [facility]ORY SERVICES [facility] RDW 16.6(H) 11.5 - 14.5 % 05/28/2021 11:15 AM CDT [facility] LABORATORY SERVICES [facility] PLATELETS 363 160 - 420 K/uL 05/28/2021 11:15 AM CDT [facility]ORY SERVICES [facility] MPV 7.5(L) 8.7 - 12.7 fL 05/28/2021 11:15 AM CDT [facility] LABORATORY SERVICES [facility] NEUTROPHILS 68 % 05/28/2021 11:15 AM CDT [facility] LAB[facility]ORY SERVICES [facility] LYMPHOCYTES 21 % 05/28/2021 11:15 AM CDT [facility] LAB[facility]ATORY SERVICES [facility] MONOCYTES 7 % 05/28/2021 11:15 AM CDT [facility] LAB[facility]ORY SERVICES [facility] EOSINOPHILS 4 % 05/28/2021 11:15 AM CDT [facility] SERVICES [facility] BASOPHILS 1 % 05/28/2021 11:15 AM CDT [facility]ORY SERVICES [facility] NEUTROPHIL ABSOLUTE 5.50 1.90 - 7.00 K/uL 05/28/2021 11:15 AM CDT [facility] LAB[facility]ORY SERVICES [facility] LYMPHOCYTE ABSOLUTE 1.70 0.70 - 4.50 K/uL 05/28/2021 11:15 AM CDT [facility] LAB[facility]ORY SERVICES [facility] MONOCYTE ABSOLUTE 0.60 0.10 - 1.30 K/uL 05/28/2021 11:15 AM CDT [facility]ORY SERVICES [facility] EOSINOPHIL ABSOLUTE 0.30 0.00 - 0.70 K/uL 05/28/2021 11:15 AM CDT [facility] BASOPHILS ABSOLUTE 0.10 0.00 - 0.20 K/uL 05/28/2021 11:[address] [facility] Blood Collection / Unknown 05/28/2021 5:00 AM CDT 05/28/2021 11:07 AM CDT us Nargis Guy MD HEMATOLOGY ORDERABLES Final Resu lt [facility] CLIA# [id number] [place] [address] * (ABNORMAL) BASIC METABOLIC PANEL (05/28/2021 5:00 AM CDT) SODIUM 145 136 - 145 mmol/L 05/28/2021 11:[address] [facility] POTASSIUM 3.7 3.4 - 5.1 mmol/L 05/28/2021 11:44 AM [facility] CHLORIDE 108(H) 98 - 107 mmol/L 05/28/2021 11:[address] [facility] CO2 24 22 - 29 mmol/L 05/28/2021 11:44 AM [facility] CALCIUM 8.4(L) 8.6 - 10.4 mg/dL 05/28/2021 11:44 AM [facility] BUN 14 6 - 20 mg/dL 05/28/2021 11:44 AM [facility] CREATININE 1.17(H) 0.51 - 0.95 mg/dL 05/28/2021 11:44 AM T [facility] [employer] [facility] GLUCOSE 105(H) 74 - 99 mg/dL 05/28/2021 11:44 AM T [facility] [employer] [facility] GFR 47 mL/min/1.7 3 sq meter 05/28/2021 11:44 AM T [facility] [employer] [facility] Comment: eGFR has not been validated [...] 3 sq meter 05/28/2021 11:44 AM CDT [facility] ANION GAP 13 8 - 16 mmol/L 05/28/2021 11:44 AM CDT [facility] Blood Collection / Unknown 05/28/2021 5:00 AM CDT 05/28/2021 11:07 AM CDT us Nargis Guy MD CHEMISTRY ORDERABLES Final Resul t [facility] [employer] [facility] CLIA# [id number] [place] [address] documented in this encounter Visit Diagnoses Not on filedocumented in this encounter
--- OUTSIDE RECORDS SUMMARY | 2025-06-22 09:51 | XMS_ITS | Encounter Summary ---
Author Organization [facility] Address [address] [place] [address] Care Team Providers Care Vacuum Worker Name Role Phone Unavailable Primary Care Provider Unavailabl e Encounter Details Date Type Department Care Team (Late st Contact Info) Description 05/17/2021 Lab Requisition [facility] Laboratory Services [address] [place] [address] [place] [address] [place] [address] Social History Tobacco Use Types [...] - 10.5 K/uL 05/17/2021 10:31 AM CDT [facility] LABORATORY SERVICES [facility] RBC 2.72(L) 3.90 - 4.90 M/uL 05/17/2021 10:31 AM CDT [facility] LABORATORY SERVICES [facility] HEMOGLOBIN 7.9(L) 11.8 - 14.8 g/dL 05/17/2021 10:31 AM CDT [facility] LABORATORY SERVICES [facility] HEMATOCRIT 23.6(L) 35.5 - 44.0 % 05/17/2021 10:31 AM CDT [facility] LABORATORY SERVICES [facility] MCV 86.6 82.0 - 99.0 fL 05/17/2021 10:31 AM CDT [facility] LABORATORY SERVICES [facility] MCH 28.9 27.8 - 34.5 pg 05/17/2021 10:31 AM CDT [facility] LABORATORY SERVICES [facility] MCHC 33.3 32.5 - 35.5 g/dL 05/17/2021 10:31 AM CDT [facility] LABORATORY SERVICES [facility] RDW 14.7(H) 11.5 - 14.5 % 05/17/2021 10:31 AM CDT [facility] LABORATORY SERVICES [facility] PLATELETS 188 160 - 420 K/uL 05/17/2021 10:31 AM CDT [facility] LABORATORY SERVICES [facility] MPV 8.8 8.7 - 12.7 fL 05/17/2021 10:31 AM CDT [facility] LABORATORY SERVICES [facility] NEUTROPHILS 59 % 05/17/2021 10:31 AM CDT [facility] LABORATORY SERVICES [facility] LYMPHOCYTES 21 % 05/17/2021 10:31 AM CDT [facility] LABORATORY SERVICES [facility] MONOCYTES 14 % 05/17/2021 10:31 AM CDT [facility] LABORATORY SERVICES [facility] EOSINOPHILS 5 % 05/17/2021 10:31 AM CDT [facility] LABORATORY SERVICES [facility] BASOPHILS 1 % 05/17/2021 10:31 AM CDT [facility] LABORATORY SERVICES [facility] NEUTROPHIL ABSOLUTE 5.80 1.90 - 7.00 K/uL 05/17/2021 10:31 AM CDT [facility] LABORATORY SERVICES [facility] LYMPHOCYTE ABSOLUTE 2.10 0.70 - 4.50 K/uL 05/17/2021 10:31 AM CDT [facility] LABORATORY SERVICES [facility] MONOCYTE ABSOLUTE 1.30 0.10 - 1.30 K/uL 05/17/2021 10:31 AM CDT [facility] LABORATORY SERVICES - [facility] EOSINOPHIL ABSOLUTE 0.50 0.00 - 0.70 K/uL 05/17/2021 10:31 AM CDT [facility] LABORATORY SERVICES - [facility] BASOPHILS ABSOLUTE 0.10 0.00 - 0.20 K/uL 05/17/2021 10:31 AM CDT [facility] LABORATORY [facility] Blood Collection / Unknown 05/17/2021 5:20 AM CDT 05/17/2021 10:01 AM CDT us Nargis Guy MD HEMATOLOGY ORDERABLES Final Resu lt [facility] LABORATORY SERVICES [facility] CLIA# [id number] [address] [place] [address] documented in this encounter Visit Diagnoses Not on filedocumented in this encounter
--- OUTSIDE RECORDS SUMMARY | 2025-06-22 09:51 | XMS_ITS | Encounter Summary ---
Author Organization [facility] Address [address] [place] [address] Care Team Providers Care Jack Machine Operator Name Role Phone Unavailable Primary Care Provider Unavailabl e Encounter Details Date Type Department Care Team (Late st Contact Info) Description 05/12/2021 Lab Requisition [facility] Laboratory Services [address] [place] [address] [place] [address] [place] [address] Social History Tobacco Use Types [...] ) HAKEEM MCG/ML 05/13/2021 2:10 PM CDT [facility] Urine URINE SPECIMEN OBTAINED BY CLEAN CATCH PROCEDURE / Unknown Collection / Unknown 05/11/2021 7:53 PM CDT 05/12/2021 10:42 AM CDT Nargis Guy MD MICROBIOLOGY - GENERAL ORDERABLE S Final Result [facility] CLIA# [id number] [address] CREEVANGELIST [place], [place] [address] * (ABNORMAL) URINALYSIS WITH REFLEX CULTURE (05/11/2021 7:53 PM CDT) COLOR UA Pale Yellow Pale to Dark Yellow 05/12/2021 10:42 AM CDT [facility] [employer] [facility] CLARITY UA Slightly Cloudy(A) Clear 05/12/2021 10:42 AM CDT [facility] [employer] [facility] SPECIFIC GRAVITY UA 1.015 1.003 - 1.035 05/12/2021 10:42 AM CDT [facility] [employer] [facility] PH UA 6.0 5.0 - 8.0 05/12/2021 10:42 AM CDT [facility] [employer] [facility] LEUKOCYTE ESTERASE UA 3+(A) Negative 05/12/2021 10:42 AM CDT [facility] [employer] [facility] NITRITE UA Negative Negative 05/12/2021 10:42 AM CDT [facility] [employer] [facility] PROTEIN UA Negative Negative 05/12/2021 10:42 AM CDT [facility] [employer] [facility] GLUCOSE UA Negative Negative 05/12/2021 10:42 AM CDT [facility] [employer] [facility] KETONES UA Negative Negative 05/12/2021 10:42 AM CDT [facility] [employer] [facility] UROBILINOGEN UA Normal <2.0 mg/dL 10:42 AM CDT [facility] [employer] [facility] BILIRUBIN UA Negative Negative 05/12/2021 10:42 AM CDT [facility] [employer] [facility] BLOOD UA Negative Negative 05/12/2021 10:42 AM CDT [facility] WBC UA 11-25(A) 0 - 2 /hpf 05/12/2021 10:42 AM CDT [facility] RBC UA 6-10(A) 0 - 2 /hpf 05/12/2021 10:42 AM CDT [facility] BACTERIA UA 1+(A) Negative /hpf 05/12/2021 10:42 AM CDT [facility] EPITHELIAL CELLS, URINE 0-5 0 - 5 /hpf 05/12/2021 10:42 AM CDT [facility] HYALINE CAST None Seen None Seen, 0-2 /lpf 05/12/2021 10:42 AM CDT [facility] YEAST, BUDDING Present(A) Absent 05/12/2021 10:42 AM CDT [facility] Urine URINE SPECIMEN OBTAINED BY CLEAN CATCH PROCEDURE / Unknown Collection / Unknown 05/11/2021 7:53 PM CDT 05/12/2021 10:22 AM CDT Narrative [facility] - 05/12/2021 10:42 AM CDT Based on results, a urine culture has been reflexed. us Nargis Guy MD URINE ORDERABLES Final Result [facility] CLIA# [id number] [address] [place] [address] documented in this encounter Visit Diagnoses Not on filedocumented in this encounter
--- OUTSIDE RECORDS SUMMARY | 2025-06-22 09:51 | XMS_ITS | Encounter Summary ---
Author Organization [facility] Address [address] [place] [address] Care Team Providers Care Rubber Molder Name Role Phone Unavailable Primary Care Provider Unavailabl e Encounter Details Date Type Department Care Team (Late st Contact Info) Description 06/20/2021 Lab Requisition [facility] Laboratory Services [address] [place] [phone] Social History Tobacco Use Types Packs/Day Years [...]
--- OUTSIDE RECORDS SUMMARY | 2025-06-22 09:51 | XMS_ITS | Clinical Summary ---
Author Organization [facility] Address [address] [place] [address] Care Team Providers Care Regional Economist Name Role Phone Karime Aguilera RN, Haresh K MD Primary Care Provider [phone] Source Comments [facility],non-owned Affiliates and Associated Physician Practices is amultiple site organization consisting of ambulatory clinics and hospital sitesin [place], [place], [place] and [place]. This disclosure is being madepursuant to the Care Everywhere program and may not contain all information available regarding this patient. Last updated 18.[facility] Allergies Active Allergy Reactions Criticality Noted [...] 1 8 Active Blood Glucose Monitoring Suppl ([employer] VERIO FLEX SYSTEM) w/Device KIT 2 Active TRULICITY 1.5 MG/0.5ML injection 2 Active ergocalciferol (DRISDOL) 1.25 MG (27253 UT) capsule ergocalciferol (vitamin D2) 1,250 mcg [...] POINT OF CARE (04/04/2022 8:36 AM CDT) [facility] Glucose WB/POC 84 70 - 106 mg/dL 04/04/2022 8:46 AM CDT [facility] Specimen Type Cap Fingerstick 2021 8:46 AM CDT [facility] Blood BLOOD SPECIMEN / Unknown 04/04/2022 8:36 AM CDT 04/04/2022 8:46 AM CDT Tin Khan MD LAB - POINT OF CARE ORDERAB LES Final Result [facility] [address] [place] [id number] from Last 3 Months or Most Recently Relevant to Health Maintenance Insurance Advance Directives * Full Code (Latest Code Status on File) Date Activated Date Inactivated Comments 05/07/2018 11:05 AM 05/08/2018 2:57 PM Care Teams Regional Economist Relationship Specialty Start Date End Date Gurvinder Renteria MD [address] [place] [address] PCP - General 01/01/22 Karime Aguilera, RN 05/07/18
--- OUTSIDE RECORDS SUMMARY | 2025-06-22 09:51 | XMS_ITS | Encounter Summary ---
Author Organization [facility] Address [address] [place] [address] Care Team Providers Care Speech Pathology Teacher Name Role Phone Unavailable Primary Care Provider Unavailabl e Encounter Details Date Type Department Care Team (Late st Contact Info) Description 07/02/2021 Lab Requisition [facility] Laboratory Services [address] [place] [address] [place] [address] [place] [address] Social History Tobacco Use Types [...] RATE (07/02/2021 4:10 AM CDT) Pathologist [facility] ESR (SEDIMENTATION RATE) 59(H) 0 - 30 mm/Hr 07/02/2021 9:26 AM CDT [facility] LABORATORY [facility] Blood Collection / Unknown 07/02/2021 4:10 AM CDT 07/02/2021 5:57 AM CDT Nargis Guy MD HEMATOLOGY ORDERABLES Final Resu lt Performing Organization Address City/[facility]/ZIP Co de Phone Number [facility] CLIA# [id number] [place] [address] * RETICULOCYTES (07/02/2021 4:10 AM CDT) Pathologist [facility] RETICULOCYTES 2.0 0.4 - 2.0 % 07/02/2021 6:49 AM CDT [facility] LABORATORY [facility] IMMATURE RETIC FRACTION 0.5 % 07/02/2021 6:49 AM CDT [facility] RETICULOCYTE, ABSOLUTE 0.0681 0.0250 - 0.1480 10e6/uL 07/02/2021 6:49 AM CDT [facility] Blood Collection / Unknown 07/02/2021 4:10 AM CDT 07/02/2021 5:57 AM CDT Nargis Guy MD HEMATOLOGY ORDERABLES Final Resu lt Performing Organization Address City/[facility]/ZIP Co de Phone Number [facility] CLIA# [id number] [place] [address] * (ABNORMAL) PREALBUMIN (07/02/2021 4:10 AM CDT) PREALBUMIN 17(L) 20 - 40 mg/dL 07/02/2021 2:25 PM CDT [facility] Blood Collection / Unknown 07/02/2021 4:10 AM CDT 07/02/2021 5:57 AM CDT Nargis Guy MD CHEMISTRY ORDERABLES Final Resul t [facility] CLIA# [id number] [address] [place] [address] * (ABNORMAL) IRON, TIBC, AND PERCENT SATURATION (07/02/2021 4:10 AM CDT) IRON 36(L) 37 - 145 ug/dL 07/02/2021 7:20 AM CDT [facility] LABORATORY [facility] TIBC 161(L) 265 - 497 ug/dL 07/02/2021 7:20 AM CDT [facility] IRON % SATURATION 22 20 - 55 % 07/02/2021 7:20 AM CDT [facility] LABORATORY [facility] Blood Collection / Unknown 07/02/2021 4:10 AM CDT 07/02/2021 5:57 AM CDT Nargis Guy MD CHEMISTRY ORDERABLES Final Resul t [facility] CLIA# [id number] [address] [place] [address] * (ABNORMAL) C-REACTIVE PROTEIN (07/02/2021 4:10 AM CDT) CRP 27.4(H) <5.0 mg/L 07/02/2021 7:20 AM CDT [facility] LABORATORY [facility] Blood Collection / Unknown 07/02/2021 4:10 AM CDT 07/02/2021 5:57 AM CDT Nargis Guy MD CHEMISTRY ORDERABLES Final Resul t [facility] CLIA# [id number] [address] [place] [address] * (ABNORMAL) CBC WITH DIFFERENTIAL (07/02/2021 4:10 AM CDT) [facility] WBC 6.5 4.5 - 10.5 K/uL 07/02/2021 6:49 AM CDT [facility] RBC 3.48(L) 3.90 - 4.90 M/uL 07/02/2021 6:49 AM CDT [facility] HEMOGLOBIN 9.5(L) 11.8 - 14.8 g/dL 07/02/2021 6:49 AM CDT [facility] HEMATOCRIT 29.3(L) 35.5 - 44.0 % 07/02/2021 6:49 AM CDT [facility] MCV 84.1 82.0 - 99.0 fL 07/02/2021 6:49 AM CDT [facility] MCH 27.2(L) 27.8 - 34.5 pg 07/02/2021 6:49 AM CDT [facility] MCHC 32.3(L) 32.5 - 35.5 g/dL 07/02/2021 6:49 AM CDT [facility] RDW 15.8(H) 11.5 - 14.5 % 07/02/2021 6:49 AM CDT [facility] PLATELETS 386 160 - 420 K/uL 07/02/2021 6:49 AM CDT [facility] MPV 7.3(L) 8.7 - 12.7 fL 07/02/2021 6:49 AM CDT [facility] NEUTROPHILS 51 % 07/02/2021 6:49 AM CDT [facility] LABORATORY [facility] LYMPHOCYTES 36 % 07/02/2021 6:49 AM CDT [facility] LABORATORY SERVICES [facility] MONOCYTES 7 % 07/02/2021 6:49 AM CDT [facility] LABORATORY SERVICES [facility] EOSINOPHILS 5 % 07/02/2021 6:49 AM CDT [facility] LABORATORY SERVICES [facility] BASOPHILS 1 % 07/02/2021 6:49 AM CDT [facility] LABORATORY SERVICES [facility] NEUTROPHIL ABSOLUTE 3.30 1.90 - 7.00 K/uL 07/02/2021 6:49 AM CDT [facility] LABORATORY SERVICES [facility] LYMPHOCYTE ABSOLUTE 2.30 0.70 - 4.50 K/uL 07/02/2021 6:49 AM CDT [facility] LABORATORY SERVICES [facility] MONOCYTE ABSOLUTE 0.50 0.10 - 1.30 K/uL 07/02/2021 6:49 AM CDT [facility] LABORATORY SERVICES [facility] EOSINOPHIL ABSOLUTE 0.30 0.00 - 0.70 K/uL 07/02/2021 6:49 AM CDT [facility] LABORATORY SERVICES [facility] BASOPHILS ABSOLUTE 0.10 0.00 - 0.20 K/uL 07/02/2021 6:49 AM CDT [facility] LABORATORY SERVICES [facility] Blood Collection / Unknown 07/02/2021 4:10 AM CDT 07/02/2021 5:57 AM CDT us Nargis Guy MD HEMATOLOGY ORDERABLES Final Resu lt [facility] CLIA# [id number] [place] [address] * (ABNORMAL) COMPREHENSIVE METABOLIC PANEL (07/02/2021 4:10 AM CDT) SODIUM 139 136 - 145 mmol/L 07/02/2021 7:20 AM CDT [facility] POTASSIUM 4.5 3.4 - 5.1 mmol/L 07/02/2021 7:20 AM CDT [facility] LABORATORY [facility] CHLORIDE 104 98 - 107 mmol/L 07/02/2021 7:20 AM [facility] CO2 24 22 - 29 mmol/L 07/02/2021 7:20 AM [facility] CALCIUM 8.9 8.6 - 10.4 mg/dL 07/02/2021 7:20 AM [facility] BUN 12 6 - 20 mg/dL 07/02/2021 7:20 AM [facility] CREATININE 0.94 0.51 - 0.95 mg/dL 07/02/2021 7:20 AM [facility] GLUCOSE 111(H) 74 - 99 mg/dL 07/02/2021 7:20 AM [facility] TOTAL PROTEIN 6.0(L) 6.3 - 8.7 g/dL 07/02/2021 7:20 AM [facility] ALBUMIN 2.8(L) 3.5 - 5.2 g/dL 07/02/2021 7:20 AM [facility] BILIRUBIN TOTAL <0.2(L) 0.2 - 1.1 mg/dL 07/02/2021 7:20 AM [facility] ALKALINE PHOSPHATASE 102 40 - 150 U/L 07/02/2021 7:20 AM [facility] AST 21 0 - 33 U/L 07/02/2021 7:20 AM [facility] ALT 15 0 - 33 U/L 07/02/2021 7:20 AM [facility] GFR >60 mL/min/1.7 3 sq meter 07/02/2021 7:20 AM [facility] Comment: eGFR has not been validated [...] 3 sq meter 07/02/2021 7:20 AM CDT [facility] LABORATORY [facility] ANION GAP 11 8 - 16 mmol/L 07/02/2021 7:20 AM CDT [facility] LABORATORY [facility] Blood Collection / Unknown 07/02/2021 4:10 AM CDT 07/02/2021 5:57 AM CDT us Nargis Guy MD CHEMISTRY ORDERABLES Final Resul t [facility] LABORATORY [facility] CLIA# [id number] [place] [address] documented in this encounter Visit Diagnoses Not on filedocumented in this encounter
--- OUTSIDE RECORDS SUMMARY | 2025-06-22 09:51 | XMS_ITS | Encounter Summary ---
Author Organization [facility] Address [address] [place] [address] Care Team Providers Care Thermal Cutter Helper Name Role Phone Unavailable Primary Care Provider Unavailabl e Encounter Details Date Type Department Care Team (Late st Contact Info) Description 07/08/2021 Lab Requisition [facility] Laboratory Services [address] [place] [address] [place] [address] [place] [address] Social History Tobacco Use Types [...] - 10.5 K/uL 07/08/2021 7:17 AM CDT [facility] LABORATORY [facility] RBC 3.47(L) 3.90 - 4.90 M/uL 07/08/2021 7:17 AM CDT [facility] LABORATORY [facility] HEMOGLOBIN 9.4(L) 11.8 - 14.8 g/dL 07/08/2021 7:17 AM [facility] HEMATOCRIT 29.2(L) 35.5 - 44.0 % 07/08/2021 7:17 AM CDT [facility] LABORATORY [facility] MCV 84.2 82.0 - 99.0 fL 07/08/2021 7:17 AM CDT [facility] LABORATORY [facility] MCH 27.1(L) 27.8 - 34.5 pg 07/08/2021 7:17 AM [facility] MCHC 32.1(L) 32.5 - 35.5 g/dL 07/08/2021 7:17 AM [facility] RDW 15.8(H) 11.5 - 14.5 % 07/08/2021 7:17 AM CDT [facility] LABORATORY [facility] PLATELETS 368 160 - 420 K/uL 07/08/2021 7:17 AM [facility] MPV 7.6(L) 8.7 - 12.7 fL 07/08/2021 7:17 AM CDT [facility] LABORATORY [facility] NEUTROPHILS 55 % 07/08/2021 7:17 AM CDT [facility] LABORATORY [facility] LYMPHOCYTES 32 % 07/08/2021 7:17 AM CDT [facility] LABORATORY SERVICES [facility] MONOCYTES 7 % 07/08/2021 7:17 AM CDT [facility] LABORATORY SERVICES [facility] EOSINOPHILS 5 % 07/08/2021 7:17 AM CDT [facility] LABORATORY SERVICES [facility] BASOPHILS 1 % 07/08/2021 7:17 AM CDT [facility] LABORATORY [facility] NEUTROPHIL ABSOLUTE 3.50 1.90 - 7.00 K/uL 07/08/2021 7:17 AM CDT [facility] LABORATORY [facility] LYMPHOCYTE ABSOLUTE 2.00 0.70 - 4.50 K/uL 07/08/2021 7:17 AM CDT [facility] LABORATORY [facility] MONOCYTE ABSOLUTE 0.50 0.10 - 1.30 K/uL 07/08/2021 7:17 AM CDT [facility] LABORATORY SERVICES [facility] EOSINOPHIL ABSOLUTE 0.30 0.00 - 0.70 K/uL 07/08/2021 7:17 AM CDT [facility] LABORATORY SERVICES [facility] BASOPHILS ABSOLUTE 0.00 0.00 - 0.20 K/uL 07/08/2021 7:17 AM CDT [facility] LABORATORY [facility] Blood Collection / Unknown 07/08/2021 5:30 AM CDT 07/08/2021 6:13 AM CDT Nargis Guy MD HEMATOLOGY ORDERABLES Final Resu lt [facility] CLIA# [id number] [place] [address] * (ABNORMAL) COMPREHENSIVE METABOLIC PANEL (07/08/2021 5:30 AM CDT) SODIUM 137 136 - 145 mmol/L 07/08/2021 7:41 AM CDT [facility] LABORATORY [facility] POTASSIUM 4.2 3.4 - 5.1 mmol/L 07/08/2021 7:41 AM CDT [facility] LABORATORY [facility] CHLORIDE 102 98 - 107 mmol/L 07/08/2021 7:41 AM CDT [facility] LABORATORY [facility] CO2 24 22 - 29 mmol/L 07/08/2021 7:41 AM CDT [facility] LABORATORY [facility] CALCIUM 8.9 8.6 - 10.4 mg/dL 07/08/2021 7:41 AM CDT [facility] LABORATORY [facility] BUN 12 6 - 20 mg/dL 07/08/2021 7:41 AM CDT [facility] LABORATORY [facility] CREATININE 0.87 0.51 - 0.95 mg/dL 07/08/2021 7:41 AM CDT [facility] LABORATORY [facility] GLUCOSE 122(H) 74 - 99 mg/dL 07/08/2021 7:41 AM CDT [facility] LABORATORY [facility] TOTAL PROTEIN 6.0(L) 6.3 - 8.7 g/dL 07/08/2021 7:41 AM [facility] ALBUMIN 2.8(L) 3.5 - 5.2 g/dL 07/08/2021 7:41 AM [facility] BILIRUBIN TOTAL 0.2 0.2 - 1.1 mg/dL 07/08/2021 7:41 AM T [facility] ALKALINE PHOSPHATASE 92 40 - 150 U/L 07/08/2021 7:41 AM T [facility] AST 13 0 - 33 U/L 07/08/2021 7:41 AM [facility] ALT 10 0 - 33 U/L 07/08/2021 7:41 AM [facility] GFR >60 mL/min/1.7 3 sq meter 07/08/2021 7:41 AM [facility] Comment: eGFR has not been validated for [...] 3 sq meter 07/08/2021 7:41 AM CDT [facility] ANION GAP 11 8 - 16 mmol/L 07/08/2021 7:41 AM T [facility] Blood Collection / Unknown 07/08/2021 5:30 AM CDT 07/08/2021 6:13 AM CDT us Nargis Guy MD CHEMISTRY ORDERABLES Final Resul t [facility] CLIA# [id number] [place] [address] documented in this encounter Visit Diagnoses Not on filedocumented in this encounter
--- OUTSIDE RECORDS SUMMARY | 2025-06-22 09:51 | XMS_ITS | Encounter Summary ---
Author Organization [facility] Address [address] [place] [address] Care Team Providers Care Consultant Technology Name Role Phone Unavailable Primary Care Provider Unavailabl e Encounter Details Date Type Department Care Team (Late st Contact Info) Description 07/12/2021 Lab Requisition [facility] Laboratory Services [address] [place] [address] [place] [address] [place] [address] Social History Tobacco Use Types [...] - 145 mmol/L 07/12/2021 11:37 AM CDT [facility] LABORATORY SERVICES - [facility] POTASSIUM 4.2 3.4 - 5.1 mmol/L 07/12/2021 11:37 AM [facility] CHLORIDE 101 98 - 107 mmol/L 07/12/2021 11:37 AM [facility] CO2 22 22 - 29 mmol/L 07/12/2021 11:37 AM [facility] CALCIUM 9.3 8.6 - 10.4 mg/dL 07/12/2021 11:37 AM [facility] BUN 20 6 - 20 mg/dL 07/12/2021 11:37 AM [facility] CREATININE 1.26(H) 0.51 - 0.95 mg/dL 07/12/2021 11:37 AM [facility] GLUCOSE 121(H) 74 - 99 mg/dL 07/12/2021 11:37 AM [facility] TOTAL PROTEIN 6.9 6.3 - 8.7 g/dL 07/12/2021 11:37 AM [facility] ALBUMIN 3.3(L) 3.5 - 5.2 g/dL 07/12/2021 11:37 AM [facility] BILIRUBIN TOTAL 0.2 0.2 - 1.1 mg/dL 07/12/2021 11:37 AM [facility] ALKALINE PHOSPHATASE 101 40 - 150 U/L 07/12/2021 11:37 AM [facility] AST 17 0 - 33 U/L 07/12/2021 11:37 AM [facility] ALT 12 0 - 33 U/L 07/12/2021 11:37 AM [facility] GFR 43 mL/min/1.7 3 sq meter 07/12/2021 11:37 AM [facility] Comment: eGFR has not been [...] 3 sq meter 07/12/2021 11:37 AM CDT [facility] LABORATORY [facility] ANION GAP 14 8 - 16 mmol/L 07/12/2021 11:37 AM CDT [facility] LABORATORY [facility] Blood Collection / Unknown 07/12/2021 5:00 AM CDT 07/12/2021 11:05 AM CDT us Nargis Guy MD CHEMISTRY ORDERABLES Final Resul t [facility] Proximic [facility] CLIA# [id number] [place] [address] documented in this encounter Visit Diagnoses Not on filedocumented in this encounter
--- OUTSIDE RECORDS SUMMARY | 2025-06-22 09:51 | XMS_ITS | Encounter Summary ---
Author Organization [facility] Address [address] [place] [address] Care Team Providers Care Airframe And Powerplant Mechanic Name Role Phone Unavailable Primary Care Provider Unavailabl e Encounter Details Date Type Department Care Team (Late st Contact Info) Description 05/10/2021 Lab Requisition [facility] Laboratory Services [address] [place] [address] [place] [address] [place] [address] Social History Tobacco Use Types [...] - 37.1 seconds 05/10/2021 9:45 AM CDT [facility] LABORATORY [facility] Blood Collection / Unknown 05/10/2021 6:11 AM CDT 05/10/2021 9:23 AM CDT Nargis Guy MD HEMATOLOGY ORDERABLES Final Resu lt [facility]# [id number] [address] [place] [address] * PROTIME-INR (05/10/2021 6:11 AM CDT) Pathologist [facility] PROTIME 14.4 11.5 - 14.7 Seconds 05/10/2021 9:45 AM CDT [facility] Plix [facility] INR 1.1 0.9 - 1.1 05/10/2021 9:45 AM CDT [facility] Blood Collection / Unknown 05/10/2021 6:11 AM CDT 05/10/2021 9:23 AM CDT Nargis Guy MD HEMATOLOGY ORDERABLES [id number] [place] [address] * (ABNORMAL) PREALBUMIN (05/10/2021 6:11 AM CDT) Pathologist [facility] PREALBUMIN 13(L) 20 - 40 mg/dL 05/10/2021 10:20 AM CDT [facility] LABORATORY [facility] Blood Collection / Unknown 05/10/2021 6:11 AM CDT 05/10/2021 9:23 AM CDT Nargis Guy MD CHEMISTRY ORDERABLES Final Resul t [facility] CLIA# [id number] [place] [address] * (ABNORMAL) CBC WITH DIFFERENTIAL (05/10/2021 6:11 AM CDT) WBC 9.2 4.5 - 10.5 K/uL 05/10/2021 9:31 AM CDT [facility] RBC 2.81(L) 3.90 - 4.90 M/uL 05/10/2021 9:31 AM CDT [facility] HEMOGLOBIN 8.3(L) 11.8 - 14.8 g/dL 05/10/2021 9:31 AM CDT [facility] HEMATOCRIT 25.0(L) 35.5 - 44.0 % 05/10/2021 9:31 AM CDT [facility] [employer] [facility] MCV 88.9 82.0 - 99.0 fL 05/10/2021 9:31 AM CDT [facility] MCH 29.7 27.8 - 34.5 pg 05/10/2021 9:31 AM CDT [facility] MCHC 33.4 32.5 - 35.5 g/dL 05/10/2021 9:31 AM CDT [facility] RDW 14.7(H) 11.5 - 14.5 % 05/10/2021 9:31 AM CDT [facility] LABORATORY [facility] PLATELETS 421(H) 160 - 420 K/uL 05/10/2021 9:31 AM CDT [facility] LABORATORY [facility] MPV 7.9(L) 8.7 - 12.7 fL 05/10/2021 9:31 AM CDT [facility] LABORATORY [facility] NEUTROPHILS 68 45 - 70 % 05/10/2021 9:31 AM CDT [facility] LABORATORY [facility] LYMPHOCYTES 19 16 - 45 % 05/10/2021 9:31 AM CDT [facility] LABORATORY SERVICES - [facility] MONOCYTES 10 3 - 13 % 05/10/2021 9:31 AM CDT [facility] LABORATORY SERVICES - [facility] EOSINOPHILS 3 0 - 7 % 05/10/2021 9:31 AM CDT [facility] LABORATORY SERVICES - [facility] BASOPHILS 1 0 - 2 % 05/10/2021 9:31 AM CDT [facility] LABORATORY SERVICES [facility] NEUTROPHIL ABSOLUTE 6.20 1.90 - 7.00 K/uL 05/10/2021 9:31 AM CDT [facility] LABORATORY SERVICES - [facility] LYMPHOCYTE ABSOLUTE 1.70 0.70 - 4.50 K/uL 05/10/2021 9:31 AM CDT [facility] LABORATORY SERVICES - [facility] MONOCYTE ABSOLUTE 0.90 0.10 - 1.30 K/uL 05/10/2021 9:31 AM CDT [facility] LABORATORY SERVICES - [facility] EOSINOPHIL ABSOLUTE 0.20 0.00 - 0.70 K/uL 05/10/2021 9:31 AM CDT [facility] LABORATORY SERVICES [facility] BASOPHILS ABSOLUTE 0.10 0.00 - 0.20 K/uL 05/10/2021 9:31 AM CDT [facility] LABORATORY SERVICES [facility] Blood Collection / Unknown 05/10/2021 6:11 AM CDT 05/10/2021 9:23 AM CDT us Nargis Guy MD HEMATOLOGY ORDERABLES Final Resu lt [facility] CLIA# [id number] [place] [address] * (ABNORMAL) COMPREHENSIVE METABOLIC PANEL (05/10/2021 6:11 AM CDT) SODIUM 143 136 - 145 mmol/L 05/10/2021 10:18 AM CDT [facility] LABORATORY [facility] POTASSIUM 4.2 3.4 - 5.1 mmol/L 05/10/2021 10:18 AM CDT [facility] LABORATORY [facility] CHLORIDE 109(H) 98 - 107 mmol/L 05/10/2021 10:18 AM CDT [facility] CO2 20(L) 22 - 29 mmol/L 05/10/2021 10:18 AM [facility] CALCIUM 8.5(L) 8.6 - 10.4 mg/dL 05/10/2021 10:18 AM [facility] BUN 20 6 - 20 mg/dL 05/10/2021 10:18 AM [facility] CREATININE 2.50(H) 0.51 - 0.95 mg/dL 05/10/2021 10:18 AM [facility] GLUCOSE 96 74 - 99 mg/dL 05/10/2021 10:18 AM [facility] TOTAL PROTEIN 6.6 6.3 - 8.7 g/dL 05/10/2021 10:18 AM [facility] ALBUMIN 2.6(L) 3.5 - 5.2 g/dL 05/10/2021 10:18 AM [facility] BILIRUBIN TOTAL 0.2(L) 0.3 - 1.2 mg/dL 05/10/2021 10:18 AM [facility] ALKALINE PHOSPHATASE 94 40 - 150 U/L 05/10/2021 10:18 AM [facility] AST 24 0 - 33 U/L 05/10/2021 10:18 AM [facility] ALT 17 0 - 33 U/L 05/10/2021 10:18 AM [facility] GFR 20 mL/min/1.7 3 sq meter 05/10/2021 10:18 AM [facility] Comment: eGFR [...] 3 sq meter 05/10/2021 10:18 AM CDT [facility] LABORATORY [facility] ANION GAP 14 8 - 16 mmol/L 05/10/2021 10:18 AM CDT [facility] Blood Collection / Unknown 05/10/2021 6:11 AM CDT 05/10/2021 9:23 AM CDT us Nargis Guy MD CHEMISTRY ORDERABLES Final Resul t [facility]OR[facility] CLIA# [id number] [address] [place] [address] documented in this encounter Visit Diagnoses Not on filedocumented in this encounter
--- OUTSIDE RECORDS SUMMARY | 2025-06-22 09:51 | XMS_ITS | Encounter Summary ---
Author Organization [facility] Address [address] [place] [address] Care Team Providers Care Director Of Business Operations Name Role Phone Karime Aguilera RN, Haresh K MD Primary Care Provider [phone] Reason for Visit * Reason Onset Date Comments Question 01/18/2025 Encounter Details Date Type Department Care Team (Late st Contact Info) Description 01/18/2025 Telephone [facility] - WELFARE DIRECTOR [address], [facility] [address] [place] [address] Christy Khan MD [address] [facility] [address] [place] [address] Question Social History Tobacco Use [...] message asking her to return our call. MER ENGINEER * Telephone Encounter - Cristal Myers - 01/18/2025 12:48 PM [facility]ST [facility] nurse calling giving a report on patient from her visit today.. she is having burning with urination at least 10 + times daily.. pt was unable to give a specimen while she was there.. and was informed to call the office CB# [phone] MER ENGINEER documented in this encounter Plan of Treatment Not on file documented as of this encounter Visit Diagnoses Not on filedocumented in this encounter Care Teams Director Of Business Operations Relationship Specialty Start Date End Date Gurvinder Renteria MD [address] [place] [address] PCP - General 01/01/22 Karime Aguilera RN 05/07/18 documented as of this encounter
--- OUTSIDE RECORDS SUMMARY | 2025-06-22 09:51 | XMS_ITS | Encounter Summary ---
Author Organization [facility] Address [address] [place] [address] Care Team Providers Care Grade Teacher Name Role Phone Unavailable Primary Care Provider Unavailabl e Encounter Details Date Type Department Care Team (Late st Contact Info) Description 06/27/[address] [facility] Laboratory Services [address] [place] [address] [place] [address] [place] [address] Social History Tobacco Use Types [...] - 10.5 K/uL 06/27/2021 8:37 AM CDT [facility] LABORATORY [facility] RBC 3.25(L) 3.90 - 4.90 M/uL 06/27/2021 8:37 AM CDT [facility] LABOR[facility] HEMOGLOBIN 8.9(L) 11.8 - 14.8 g/dL 06/27/2021 8:37 AM [facility] LABORATORY [facility] HEMATOCRIT 27.8(L) 35.5 - 44.0 % 06/27/2021 8:37 AM CDT [facility] LAB[facility] MCV 85.6 82.0 - 99.0 fL 06/27/2021 8:37 AM CDT [facility] LABORAT[facility] MCH 27.5(L) 27.8 - 34.5 pg 06/27/2021 8:37 AM CDT [facility] LABOR[facility] MCHC 32.2(L) 32.5 - 35.5 g/dL 06/27/2021 8:37 AM CDT [facility] LABOR[facility] RDW 15.7(H) 11.5 - 14.5 % 06/27/2021 8:37 AM CDT [facility] PLATELETS 367 160 - 420 K/uL 06/27/2021 8:37 AM [facility] LABORATORY [facility] MPV 7.7(L) 8.7 - 12.7 fL 06/27/2021 8:37 AM CDT [facility] LABOR[facility] NEUTROPHILS 53 % 06/27/2021 8:37 AM CDT [facility] LABOR[facility] LYMPHOCYTES 33 % 06/27/2021 8:37 AM CDT [facility] LABORATORY SERVICES [facility] MONOCYTES 9 % 06/27/2021 8:37 AM CDT [facility] LABORATORY SERVICES [facility] EOSINOPHILS 4 % 06/27/2021 8:37 AM CDT [facility] LABORATORY SERVICES [facility] BASOPHILS 1 % 06/27/2021 8:37 AM CDT [facility] NEUTROPHIL ABSOLUTE 3.40 1.90 - 7.00 K/uL 06/27/2021 8:37 AM CDT [facility] LABORATORY [facility] LYMPHOCYTE ABSOLUTE 2.20 0.70 - 4.50 K/uL 06/27/2021 8:37 AM CDT [facility] LABOR[facility] MONOCYTE ABSOLUTE 0.60 0.10 - 1.30 K/uL 06/27/2021 8:37 AM CDT [facility] LABORATORY SERVICES [facility] EOSINOPHIL ABSOLUTE 0.30 0.00 - 0.70 K/uL 06/27/2021 8:37 AM CDT [facility] LABORATORY SERVICES [facility] BASOPHILS ABSOLUTE 0.10 0.00 - 0.20 K/uL 06/27/2021 8:37 AM CDT [facility] LABORATORY [facility] Blood Collection / Unknown 06/27/2021 4:22 AM CDT 06/27/2021 8:17 AM CDT Nargis Guy MD HEMATOLOGY ORDERABLES Final Resu lt [facility] CLIA# [id number] [place] [address] * (ABNORMAL) COMPREHENSIVE METABOLIC PANEL (06/27/2021 4:22 AM CDT) SODIUM 137 136 - 145 mmol/L 06/27/2021 9:05 AM CDT [facility] POTASSIUM 3.9 3.4 - 5.1 mmol/L 06/27/2021 9:05 AM T [facility] CHLORIDE 104 98 - 107 mmol/L 06/27/2021 9:05 AM T [facility] CO2 24 22 - 29 mmol/L 06/27/2021 9:05 AM T [facility] CALCIUM 8.8 8.6 - 10.4 mg/dL 06/27/2021 9:05 AM CDT [facility] BUN 10 6 - 20 mg/dL 06/27/2021 9:05 AM CDT [facility] CREATININE 1.00(H) 0.51 - 0.95 mg/dL 06/27/2021 9:05 AM T [facility] GLUCOSE 110(H) 74 - 99 mg/dL 06/27/2021 9:05 AM T [facility] TOTAL PROTEIN 5.9(L) 6.3 - 8.7 g/dL 06/27/2021 9:05 AM [facility] ALBUMIN 2.5(L) 3.5 - 5.2 g/dL 06/27/2021 9:05 AM [facility] BILIRUBIN TOTAL <0.2(L) 0.2 - 1.1 mg/dL 06/27/2021 9:05 AM [facility] ALKALINE PHOSPHATASE 96 40 - 150 U/L 06/27/2021 9:05 AM [facility] AST 19 0 - 33 U/L 06/27/2021 9:05 AM [facility] ALT 17 0 - 33 U/L 06/27/2021 9:05 AM [facility] GFR 57 mL/min/1.7 3 sq meter 06/27/2021 9:05 AM [facility] Comment: eGFR has not been validated [...] 3 sq meter 06/27/2021 9:05 AM T [facility] ANION GAP 9 8 - 16 mmol/L 06/27/2021 9:05 AM [facility] Blood Collection / Unknown 06/27/2021 4:22 AM CDT 06/27/2021 8:17 AM CDT us Nargis Guy MD CHEMISTRY ORDERABLES Final Resul t [facility] CLIA# [id number] [place] [address] documented in this encounter Visit Diagnoses Not on filedocumented in this encounter
--- OUTSIDE RECORDS SUMMARY | 2025-06-22 09:51 | XMS_ITS | Encounter Summary ---
Author Organization [facility] Address [address] [place] [address] Care Team Providers Care Plate Roller Name Role Phone Unavailable Primary Care Provider Unavailabl e Encounter Details Date Type Department Care Team (Late st Contact Info) Description 05/14/2021 Lab Requisition [facility] Laboratory Services [address] [place] [address] [place] [address] [place] [address] Social History Tobacco Use Types [...] - 10.5 K/uL 05/14/2021 6:03 AM CDT [facility] LABORATORY [facility] RBC 2.60(L) 3.90 - 4.90 M/uL 05/14/2021 6:03 AM [facility] LABORATORY [facility] HEMOGLOBIN 7.6(L) 11.8 - 14.8 g/dL 05/14/2021 6:03 AM [facility] LABORATORY [facility] HEMATOCRIT 22.9(L) 35.5 - 44.0 % 05/14/2021 6:03 [facility] MCV 88.1 82.0 - 99.0 fL 05/14/2021 6:03 AM [facility] LABORATORY [facility] MCH 29.3 27.8 - 34.5 pg 05/14/2021 6:03 AM [facility] LABORATORY [facility] MCHC 33.3 32.5 - 35.5 g/dL 05/14/2021 6:03 AM [facility] LABORATORY [facility] RDW 15.0(H) 11.5 - 14.5 % 05/14/2021 6:03 AM CDT [facility] LABORATORY [facility] PLATELETS 168 160 - 420 K/uL 05/14/2021 6:03 AM [facility] LABORATORY [facility] MPV 8.5(L) 8.7 - 12.7 fL 05/14/2021 6:03 AM CDT [facility] LABORATORY [facility] NEUTROPHILS 56 % 05/14/2021 6:03 AM CDT [facility] LABORATORY [facility] LYMPHOCYTES 26 % 05/14/2021 6:03 AM CDT [facility] LABORATORY [facility] MONOCYTES 13 % 05/14/2021 6:03 AM CDT [facility] LABORATORY SERVICES [facility] EOSINOPHILS 5 % 05/14/2021 6:03 AM CDT [facility] LABORATORY [facility] BASOPHILS 1 % 05/14/2021 6:03 AM CDT [facility] LABORATORY [facility] NEUTROPHIL ABSOLUTE 3.70 1.90 - 7.00 K/uL 05/14/2021 6:03 [facility] LYMPHOCYTE ABSOLUTE 1.70 0.70 - 4.50 K/uL 05/14/2021 6:03 AM CDT [facility] LABORATORY [facility] MONOCYTE ABSOLUTE 0.80 0.10 - 1.30 K/uL 05/14/2021 6:03 AM CDT [facility]ATORY [facility] EOSINOPHIL ABSOLUTE 0.30 0.00 - 0.70 K/uL 05/14/2021 6:03 AM CDT [facility] LABORATORY [facility] BASOPHILS ABSOLUTE 0.10 0.00 - 0.20 K/uL 05/14/2021 6:03 AM CDT [facility] LABORATORY [facility] Blood BLOOD SPECIMEN / Unknown Collection / Unknown 05/14/2021 3:30 AM CDT 05/14/2021 5:27 AM CDT Nargis Guy MD HEMATOLOGY ORDERABLES Final Resu lt [facility] CLIA# [id number] [place] [address] * (ABNORMAL) BASIC METABOLIC PANEL (05/14/2021 3:30 AM CDT) Pathologist [facility] SODIUM 140 136 - 145 mmol/L 05/14/2021 6:38 AM CDT [facility] LABORATORY [facility] POTASSIUM 4.2 3.4 - 5.1 mmol/L 05/14/2021 6:38 AM CDT [facility] LABORATORY [facility] CHLORIDE 105 98 - 107 mmol/L 05/14/2021 6:38 AM CDT [facility] LABORATORY [facility] CO2 21(L) 22 - 29 mmol/L 05/14/2021 6:38 AM CDT [facility] LABORATORY [facility] CALCIUM 8.9 8.6 - 10.4 mg/dL 05/14/2021 6:38 AM CDT [facility] LABORATORY [facility] BUN 22(H) 6 - 20 mg/dL 05/14/2021 6:38 AM CDT [facility] LABORATORY [facility] CREATININE 2.50(H) 0.51 - 0.95 mg/dL 05/14/2021 6:38 AM CDT [facility] LABORATORY [facility] GLUCOSE 96 74 - 99 mg/dL 05/14/2021 6:38 AM CDT [facility] LABORATORY [facility] GFR 20 mL/min/1.7 3 sq meter 05/14/2021 6:38 AM CDT [facility] Comment: eGFR has not [...] 3 sq meter 05/14/2021 6:38 AM CDT [facility] ANION GAP 14 8 - 16 mmol/L 05/14/2021 6:38 AM CDT [facility] Blood BLOOD SPECIMEN / Unknown Collection / Unknown 05/14/2021 3:30 AM CDT 05/14/2021 5:27 AM CDT us Nargis Guy MD CHEMISTRY ORDERABLES Final Resul t [facility] [employer] [facility] CLIA# [id number] [place] [address] documented in this encounter Visit Diagnoses Not on filedocumented in this encounter
--- OUTSIDE RECORDS SUMMARY | 2025-06-22 09:51 | XMS_ITS | Encounter Summary ---
Author Organization [facility] Address [address] [place] [address] Care Team Providers Care Wrapper Caser Name Role Phone Unavailable Primary Care Provider Unavailabl e Encounter Details Date Type Department Care Team (Late st Contact Info) Description 07/19/2021 Lab Requisition [facility] Laboratory Services [address] [place] [address] [place] [address] [place] [address] Social History Tobacco Use Types [...] - 10.5 K/uL 07/19/2021 11:50 AM CDT [facility] RBC 3.66(L) 3.90 - 4.90 M/uL 07/19/2021 11:50 AM CDT [facility] HEMOGLOBIN 9.6(L) 11.8 - 14.8 g/dL 07/19/2021 11:50 AM CDT [facility] SERVICES [facility] HEMATOCRIT 30.5(L) 35.5 - 44.0 % 07/19/2021 11:50 AM CDT [facility] SERVICES [facility] MCV 83.5 82.0 - 99.0 fL 07/19/2021 11:50 AM CDT [facility] SERVICES [facility] MCH 26.4(L) 27.8 - 34.5 pg 07/19/2021 11:50 AM CDT [facility] SERVICES [facility] MCHC 31.6(L) 32.5 - 35.5 g/dL 07/19/2021 11:50 AM CDT [facility] RDW 15.6(H) 11.5 - 14.5 % 07/19/2021 11:50 AM CDT [facility] SERVICES [facility] PLATELETS 383 160 - 420 K/uL 07/19/2021 11:50 AM CDT [facility] MPV 8.0(L) 8.7 - 12.7 fL 07/19/2021 11:50 AM CDT [facility] SERVICES [facility] NEUTROPHILS 52 % 07/19/2021 11:50 AM CDT [facility] SERVICES [facility] LYMPHOCYTES 36 % 07/19/2021 11:50 AM CDT [facility] MONOCYTES 6 % 07/19/2021 11:50 AM CDT [facility] EOSINOPHILS 5 % 07/19/2021 11:50 AM CDT [facility] BASOPHILS 1 % 07/19/2021 11:50 AM CDT [facility] NEUTROPHIL ABSOLUTE 3.80 1.90 - 7.00 K/uL 07/19/2021 11:50 AM CDT [facility] SERVICES [facility] LYMPHOCYTE ABSOLUTE 2.70 0.70 - 4.50 K/uL 07/19/2021 11:50 AM CDT [facility] MONOCYTE ABSOLUTE 0.50 0.10 - 1.30 K/uL 07/19/2021 11:50 AM CDT [facility] SERVICES [facility] EOSINOPHIL ABSOLUTE 0.30 0.00 - 0.70 K/uL 07/19/2021 11:50 AM CDT [facility] SERVICES [facility] BASOPHILS ABSOLUTE 0.10 0.00 - 0.20 K/uL 07/19/2021 11:50 AM CDT [facility] Blood Collection / Unknown 07/19/2021 3:23 AM CDT 07/19/2021 11:47 AM CDT Nargis Guy MD HEMATOLOGY ORDERABLES Final Resu lt [facility] CLIA# [id number] [place] [address] * (ABNORMAL) COMPREHENSIVE METABOLIC PANEL (07/19/2021 3:23 AM CDT) SODIUM 138 136 - 145 mmol/L 07/19/2021 12:19 PM CDT [facility] POTASSIUM 4.4 3.4 - 5.1 mmol/L 07/19/2021 12:19 PM CDT [facility] CHLORIDE 101 98 - 107 mmol/L 07/19/2021 12:19 PM CDT [facility] CO2 24 22 - 29 mmol/L 07/19/2021 12:19 PM CDT [facility] CALCIUM 9.2 8.6 - 10.4 mg/dL 07/19/2021 12:19 PM CDT [facility] BUN 18 6 - 20 mg/dL 07/19/2021 12:19 PM CDT [facility] CREATININE 0.98(H) 0.51 - 0.95 mg/dL 07/19/2021 12:19 PM CDT [facility] GLUCOSE 102(H) 74 - 99 mg/dL 07/19/2021 12:19 PM CDT [facility] TOTAL PROTEIN 6.5 6.3 - 8.7 g/dL 07/19/2021 12:19 PM T [facility] ALBUMIN 3.1(L) 3.5 - 5.2 g/dL 07/19/2021 [...] 3 sq meter 07/19/2021 12:19 PM CDT [facility] ANION GAP 13 8 - 16 mmol/L 07/19/2021 12:19 PM T [facility] Blood Collection / Unknown 07/19/2021 3:23 AM CDT 07/19/2021 11:48 AM CDT us Nargis Guy MD CHEMISTRY ORDERABLES Final Resul t [facility] CLIA# [id number] [place] [address] documented in this encounter Visit Diagnoses Not on filedocumented in this encounter
--- OUTSIDE RECORDS SUMMARY | 2025-06-22 09:51 | XMS_ITS | Clinical Summary ---
Author Organization [facility] Address [address] [place] [address] Care Team Providers Care Roller Bearing Inspector Name Role Phone Unavailable Primary Care Provider [...] meter) OneTouch Verio Flex Meter Active Insulin [place], Disposable, (TRUEplus Pen Needle) 31 gauge x [...] 6.2(H) <=5.6 % 07/13/2021 10:36 AM CDT [facility] [employer] [facility] EST. AVG GLUCOSE, A1C 131 mg/dL 07/13/2021 10:36 AM CDT [facility] [employer] [facility] Blood Collection / Unknown 07/13/2021 6:30 AM CDT 07/13/2021 10:06 AM CDT Narrative [facility] [employer] [facility] - 07/13/2021 10:36 AM CDT HGB A1C INTERPRETATION NORMAL: <5.7% PRE-DIABETES: 5.7 - 6.4% DIABETES: 6.5% OR GREATER Nargis Guy MD CHEMISTRY ORDERABLES Final Resul t [facility] Stacy HERNANDEZ# [id number] [place] [address] from Last 3 Months or Most Recently Relevant to Health Maintenance Insurance [employer] MED[employer] RX [employer] Medicare Part D [place] Advance Directives For more information, please contact: [phone] * Full Code (Latest Code Status on File) Date Activated Date Inactivated Comments 05/19/2021 12:52 PM 05/26/2021 12:57 AM
--- OUTSIDE RECORDS SUMMARY | 2025-06-22 09:51 | XMS_ITS | Encounter Summary ---
Author Organization [facility] Address [address] [place] [address] Care Team Providers Care Salesforce Trainer Name Role Phone Unavailable Primary Care Provider Unavailabl e Encounter Details Date Type Department Care Team (Late st Contact Info) Description 07/05/2021 Lab Requisition [facility] Laboratory Services [address] [place] [address] [place] [address] [place] [address] Social History Tobacco Use Types [...] - 10.5 K/uL 07/05/2021 10:39 AM CDT [facility] RBC 3.78(L) 3.90 - 4.90 M/uL 07/05/2021 10:[facility] HEMOGLOBIN 10.0(L) 11.8 - 14.8 g/dL 07/05/2021 10:39 [facility] HEMATOCRIT 31.8(L) 35.5 - 44.0 % 07/05/2021 10:39 AM CDT [facility] MCV 84.2 82.0 - 99.0 fL 07/05/2021 10:39 [facility] MCH 26.5(L) 27.8 - 34.5 pg 07/05/2021 10:39 [facility] MCHC 31.5(L) 32.5 - 35.5 g/dL 07/05/2021 10:39 AM [facility] RDW 15.4(H) 11.5 - 14.5 % 07/05/2021 10:39 AM CDT [facility] PLATELETS 368 160 - 420 K/uL 07/05/2021 10:39 AM [facility] MPV 7.5(L) 8.7 - 12.7 fL 07/05/2021 10:39 AM CDT [facility] NEUTROPHILS 53 % 07/05/2021 10:39 AM CDT [facility] LYMPHOCYTES 33 % 07/05/2021 10:39 AM CDT [facility] MONOCYTES 8 % 07/05/2021 10:39 AM CDT [facility] LABORATORY SERVICES [facility] EOSINOPHILS 5 % 07/05/2021 10:39 AM CDT [facility] SERVICES [facility] BASOPHILS 1 % 07/05/2021 10:39 AM CDT [facility] NEUTROPHIL ABSOLUTE 3.40 1.90 - 7.00 K/uL 07/05/2021 10:39 AM CDT [facility] LYMPHOCYTE ABSOLUTE 2.20 0.70 - 4.50 K/uL 07/05/2021 10:39 AM CDT [facility] MONOCYTE ABSOLUTE 0.50 0.10 - 1.30 K/uL 07/05/2021 10:39 AM CDT [facility] LABORATORY SERVICES - [facility] EOSINOPHIL ABSOLUTE 0.30 0.00 - 0.70 K/uL 07/05/2021 10:39 AM CDT [facility] LABORATORY SERVICES - [facility] BASOPHILS ABSOLUTE 0.10 0.00 - 0.20 K/uL 07/05/2021 10:39 AM CDT [facility] SERVICES [facility] Blood Collection / Unknown 07/05/2021 6:00 AM CDT 07/05/2021 10:24 AM CDT Nargis Guy MD HEMATOLOGY ORDERABLES Final Resu lt [facility] CLIA# [id number] [place] [address] * (ABNORMAL) COMPREHENSIVE METABOLIC PANEL (07/05/2021 6:00 AM CDT) SODIUM 139 136 - 145 mmol/L 07/05/2021 11:04 AM CDT [facility] POTASSIUM 4.5 3.4 - 5.1 mmol/L 07/05/2021 11:04 AM CDT [facility]ORATORY SERVICES [facility] CHLORIDE 102 98 - 107 mmol/L 07/05/2021 11:04 AM CDT [facility] SERVICES [facility] CO2 25 22 - 29 mmol/L 07/05/2021 11:04 AM CDT [facility] SERVICES [facility] CALCIUM 9.1 8.6 - 10.4 mg/dL 07/05/2021 11:04 AM CDT [facility] SERVICES [facility] BUN 14 6 - 20 mg/dL 07/05/2021 11:04 AM CDT [facility] SERVICES [facility] CREATININE 0.95 0.51 - 0.95 mg/dL 07/05/2021 11:04 AM CDT [facility] SERVICES [facility] GLUCOSE 101(H) 74 - 99 mg/dL 07/05/2021 11:04 AM CDT [facility] SERVICES [facility] TOTAL PROTEIN 6.1(L) 6.3 - 8.7 g/dL 07/05/2021 11:04 AM [facility] ALBUMIN 2.9(L) 3.5 - 5.2 g/dL 07/05/2021 11:04 AM [facility] BILIRUBIN TOTAL <0.2(L) 0.2 - 1.1 mg/dL 07/05/2021 11:04 AM [facility] ALKALINE PHOSPHATASE 107 40 - 150 U/L 07/05/2021 11:04 AM [facility] AST 16 0 - 33 U/L 07/05/2021 11:04 AM [facility] ALT 13 0 - 33 U/L 07/05/2021 11:04 AM [facility] GFR 60 mL/min/1.7 3 sq meter 07/05/2021 11:04 AM [facility] [...] 3 sq meter 07/05/2021 11:04 AM T [facility] ANION GAP 12 8 - 16 mmol/L 07/05/2021 11:04 AM [facility] Blood Collection / Unknown 07/05/2021 6:00 AM CDT 07/05/2021 10:24 AM CDT us Nargis Guy MD CHEMISTRY ORDERABLES Final Resul t [facility] CLIA# [id number] [place] [address] documented in this encounter Visit Diagnoses Not on filedocumented in this encounter
--- OUTSIDE RECORDS SUMMARY | 2025-06-22 09:51 | XMS_ITS | Encounter Summary ---
Author Organization [facility] Address [address] [place] [address] Care Team Providers Care Coach Name Role Phone Unavailable Primary Care Provider Unavailabl e Encounter Details Date Type Department Care Team (Late st Contact Info) Description 07/13/2021 Lab Requisition [facility] Laboratory Services [address] [place] [address] [place] [address] [place] [address] Social History Tobacco Use Types [...] 6.2(H) <=5.6 % 07/13/2021 10:36 AM CDT [facility] EST. AVG GLUCOSE, A1C 131 mg/dL 07/13/2021 10:36 AM CDT [facility] Blood Collection / Unknown 07/13/2021 6:30 AM CDT 07/13/2021 10:06 AM CDT Narrative [facility] - 07/13/2021 10:36 AM CDT HGB A1C INTERPRETATION NORMAL: <5.7% PRE-DIABETES: 5.7 - 6.4% DIABETES: 6.5% OR GREATER Nargis Guy MD CHEMISTRY ORDERABLES Final Resul t [facility] CLIA# [id number] [place] [address] documented in this encounter Visit Diagnoses Not on filedocumented in this encounter
--- OUTSIDE RECORDS SUMMARY | 2025-06-22 09:51 | XMS_ITS | Encounter Summary ---
Author Organization [facility] Address [address] [place] [address] Care Team Providers Care Wardrobe Attendant Name Role Phone Unavailable Primary Care Provider Unavailabl e Encounter Details Date Type Department Care Team (Late st Contact Info) Description 06/21/2021 Lab Requisition [facility] Laboratory Services [address] [place] [address] [place] [address] [place] [address] Social History Tobacco Use Types [...] COLI(A) HAKEEM MCG/ML 06/23/2021 8:32 AM CDT [facility] Urine URINE SPECIMEN OBTAINED BY CLEAN [...] MICROBIOLOGY - GENERAL ORDERABLE S Final Result [facility]# [id number] [address] [facility] [place] [address] * (ABNORMAL) URINALYSIS WITH REFLEX CULTURE (06/20/2021 8:08 PM CDT) COLOR UA Yellow Pale to Dark Yellow 06/21/2021 11:06 AM CDT [facility] [employer] [facility] CLARITY UA Slightly Cloudy(A) Clear 06/21/2021 11:06 AM CDT [facility] SPECIFIC GRAVITY UA 1.012 1.003 - 1.035 06/21/2021 11:06 AM CDT [facility] PH UA 5.0 5.0 - 8.0 06/21/2021 11:06 AM CDT [facility] LEUKOCYTE ESTERASE UA 1+(A) Negative 06/21/2021 11:06 AM [facility] NITRITE UA Positive(A) Negative 06/21/2021 11:06 AM [facility] PROTEIN UA Negative Negative 06/21/2021 11:06 AM T [facility] GLUCOSE UA 1+(A) Negative 06/21/2021 11:06 AM T [facility] KETONES UA Negative Negative 06/21/2021 11:06 AM T [facility] UROBILINOGEN UA Normal <2.0 mg/dL 11:06 AM T [facility] BILIRUBIN UA Negative Negative 06/21/2021 11:06 AM T [facility] BLOOD UA 1+(A) Negative 06/21/2021 11:06 AM [facility] WBC UA 11-25(A) 0 - 2 /hpf 06/21/2021 11:06 AM T [facility] RBC UA 6-10(A) 0 - 2 /hpf 06/21/2021 11:06 AM CDT [facility] BACTERIA UA 2+(A) Negative /hpf 06/21/2021 11:06 AM T [facility] EPITHELIAL CELLS, URINE 6-10(A) 0 - 5 /hpf 06/21/2021 11:06 AM [facility] HYALINE CAST None Seen None Seen, 0-2 /lpf 06/21/2021 11:06 AM [facility] Urine URINE SPECIMEN OBTAINED BY CLEAN CATCH PROCEDURE / Unknown Collection / Unknown 06/20/2021 8:08 PM CDT 06/21/2021 10:49 AM [facility] - 06/21/2021 11:06 AM CDT Based on results, a urine culture has been reflexed. us Nargis Guy MD URINE ORDERABLES Final Result [facility] CLIA# [id number] [place] [address] documented in this encounter Visit Diagnoses Not on filedocumented in this encounter
--- OUTSIDE RECORDS SUMMARY | 2025-06-22 09:51 | XMS_ITS | Encounter Summary ---
Author Organization [facility] Address [address] [place] [address] Care Team Providers Care Stunt Driver Name Role Phone Unavailable Primary Care Provider Unavailabl e Encounter Details Date Type Department Care Team (Late st Contact Info) Description 06/24/2021 Lab Requisition [facility] Laboratory Services [address] [place] [address] [place] [address] [place] [address] Social History Tobacco Use Types [...] - 10.5 K/uL 06/24/2021 6:33 AM CDT [facility]ORAT[facility] RBC 3.59(L) 3.90 - 4.90 M/uL 06/24/2021 6:33 AM CDT [facility] HEMOGLOBIN 9.8(L) 11.8 - 14.8 g/dL 06/24/2021 6:33 AM CDT [facility] HEMATOCRIT 30.2(L) 35.5 - 44.0 % 06/24/2021 6:33 AM CDT [facility] MCV 84.3 82.0 - 99.0 fL 06/24/2021 6:33 AM CDT [facility] MCH 27.3(L) 27.8 - 34.5 pg 06/24/2021 6:33 AM CDT [facility] MCHC 32.4(L) 32.5 - 35.5 g/dL 06/24/2021 6:33 AM CDT [facility] RDW 15.9(H) 11.5 - 14.5 % 06/24/2021 6:33 AM CDT [facility] PLATELETS 353 160 - 420 K/uL 06/24/2021 6:33 AM CDT [facility] MPV 8.2(L) 8.7 - 12.7 fL 06/24/2021 6:33 AM CDT [facility] NEUTROPHILS 54 % 06/24/2021 6:33 AM CDT [facility] LYMPHOCYTES 34 % 06/24/2021 6:33 AM CDT [facility] MONOCYTES 8 % 06/24/2021 6:33 AM CDT [facility] EOSINOPHILS 4 % 06/24/2021 6:33 AM CDT [facility] BASOPHILS 1 % 06/24/2021 6:33 AM CDT [facility] NEUTROPHIL ABSOLUTE 3.60 1.90 - 7.00 K/uL 06/24/2021 6:33 AM CDT [facility] LYMPHOCYTE ABSOLUTE 2.20 0.70 - 4.50 K/uL 06/24/2021 6:33 AM CDT [facility] MONOCYTE ABSOLUTE 0.50 0.10 - 1.30 K/uL 06/24/2021 6:33 AM CDT [facility] LABORATORY SERVICES [facility] EOSINOPHIL ABSOLUTE 0.20 0.00 - 0.70 K/uL 06/24/2021 6:33 AM CDT [facility]ORY SERVICES [facility] BASOPHILS ABSOLUTE 0.10 0.00 - 0.20 K/uL 06/24/2021 6:33 AM CDT [facility] Blood 06/24/2021 4:30 AM CDT 06/24/2021 6:18 AM CDT us Nargis Guy MD HEMATOLOGY ORDERABLES Final Resu lt [facility] CLIA# [id number] [place] [address] * (ABNORMAL) COMPREHENSIVE METABOLIC PANEL (06/24/2021 4:30 AM CDT) SODIUM 140 136 - 145 mmol/L 06/24/2021 6:58 AM CDT [facility] POTASSIUM 4.6 3.4 - 5.1 mmol/L 06/24/2021 6:58 AM CDT [facility] CHLORIDE 105 98 - 107 mmol/L 06/24/2021 6:58 AM CDT [facility] CO2 22 22 - 29 mmol/L 06/24/2021 6:58 AM CDT [facility] CALCIUM 8.9 8.6 - 10.4 mg/dL 06/24/2021 6:58 AM CDT [facility] BUN 11 6 - 20 mg/dL 06/24/2021 6:58 AM CDT [facility] CREATININE 0.93 0.51 - 0.95 mg/dL 06/24/2021 6:58 AM CDT [facility] GLUCOSE 97 74 - 99 mg/dL 06/24/2021 6:58 AM CDT [facility] TOTAL PROTEIN 6.3 6.3 - 8.7 g/dL 06/24/2021 6:58 AM CDT [facility] ALBUMIN 2.7(L) 3.5 - 5.2 g/dL 06/24/2021 6:58 AM T [facility] BILIRUBIN TOTAL 0.2(L) 0.3 - 1.2 mg/dL 06/24/2021 6:58 AM T [facility] ALKALINE PHOSPHATASE 110 40 - 150 U/L 06/24/2021 6:58 AM CDT [facility] AST 24 0 - 33 U/L 06/24/2021 6:58 AM T [facility] ALT 20 0 - 33 U/L 06/24/2021 6:58 AM T [facility] GFR >60 mL/min/1.7 3 sq meter 06/24/2021 6:58 AM T [facility] Comment: eGFR has not been validated [...] 3 sq meter 06/24/2021 6:58 AM CDT [facility] ANION GAP 13 8 - 16 mmol/L 06/24/2021 6:58 AM T [facility] Blood 06/24/2021 4:30 AM CDT 06/24/2021 6:18 AM CDT us Nargis Guy MD CHEMISTRY ORDERABLES Final Resul t [facility] CLIA# [id number] [place] [address] documented in this encounter Visit Diagnoses Not on filedocumented in this encounter
--- OUTSIDE RECORDS SUMMARY | 2025-06-22 09:51 | XMS_ITS | Encounter Summary ---
Author Organization [facility] Address [address] [place] [address] Care Team Providers Care Ict Support Engineer Name Role Phone Unavailable Primary Care Provider Unavailabl e Encounter Details Date Type Department Care Team (Late st Contact Info) Description 05/26/2021 Lab Requisition [facility] Services [address] [place] [address] [facility], External Provider [address] [place] [address] Social History Tobacco Use Types Packs/Day Years [...] - 37.1 seconds 05/26/2021 7:19 AM CDT [facility] Blood Collection / Unknown 05/26/2021 4:30 AM CDT 05/26/2021 6:22 AM CDT External Provider [facility] HEMATOLOGY ORDERABLES Fin al Result [facility] [id number] [place] [address] * PROTIME-INR (05/26/2021 4:30 AM CDT) PROTIME 13.4 11.5 - 14.7 Seconds 05/26/2021 7:19 AM CDT [facility] INR 1.0 0.9 - 1.1 05/26/2021 7:19 AM CDT [facility] [employer] [facility] Blood Collection / Unknown 05/26/2021 4:30 AM CDT 05/26/2021 6:22 AM CDT Result [facility] External Provider [facility] HEMATOLOGY ORDERABLES Fin al Result Performing Organization Address City/[facility]/ZIP Co de Phone Number [facility] [id number] [place] [address] * (ABNORMAL) PREALBUMIN (05/26/2021 4:30 AM CDT) PREALBUMIN 17(L) 20 - 40 mg/dL 05/26/2021 12:53 PM CDT [facility] Blood Collection / Unknown 05/26/2021 4:30 AM CDT 05/26/2021 6:22 AM CDT External Provider [facility] CHEMISTRY ORDERABLES Jennie l Result [facility] CLIA# [id number] [address] [facility] LEE RONALD CERDA [address] * (ABNORMAL) CBC WITH DIFFERENTIAL (05/26/2021 4:30 AM CDT) WBC 10.1 4.5 - 10.5 K/uL 05/26/2021 7:23 AM CDT [facility] RBC 3.06(L) 3.90 - 4.90 M/uL 05/26/2021 7:23 AM CDT [facility] HEMOGLOBIN 8.8(L) 11.8 - 14.8 g/dL 05/26/2021 7:23 AM CDT [facility] HEMATOCRIT 27.2(L) 35.5 - 44.0 % 05/26/2021 7:23 AM CDT [facility] MCV 89.0 82.0 - 99.0 fL 05/26/2021 7:23 AM CDT [facility] MCH 28.8 27.8 - 34.5 pg 05/26/2021 7:23 AM CDT [facility] MCHC 32.3(L) 32.5 - 35.5 g/dL 05/26/2021 7:23 AM CDT [facility] RDW 16.0(H) 11.5 - 14.5 % 05/26/2021 7:23 AM CDT [facility] PLATELETS 399 160 - 420 K/uL 05/26/2021 7:23 AM CDT [facility] MPV 7.8(L) 8.7 - 12.7 fL 05/26/2021 7:23 AM CDT [facility] NEUTROPHILS 71 % 05/26/2021 7:23 AM CDT [facility] LYMPHOCYTES 18 % 05/26/2021 7:23 AM CDT [facility] MONOCYTES 8 % 05/26/2021 7:23 AM CDT [facility] EOSINOPHILS 3 % 05/26/2021 7:23 AM CDT [facility] BASOPHILS 1 % 05/26/2021 7:23 AM CDT [facility] NEUTROPHIL ABSOLUTE 7.20(H) 1.90 - 7.00 K/uL 05/26/2021 7:23 AM CDT [facility] LYMPHOCYTE ABSOLUTE 1.90 0.70 - 4.50 K/uL 05/26/2021 7:23 AM CDT [facility] MONOCYTE ABSOLUTE 0.80 0.10 - 1.30 K/uL 05/26/2021 7:23 AM CDT [facility] EOSINOPHIL ABSOLUTE 0.30 0.00 - 0.70 K/uL 05/26/2021 7:23 AM CDT [facility] SERVICES [facility] BASOPHILS ABSOLUTE 0.00 0.00 - 0.20 K/uL 05/26/2021 7:23 AM CDT [facility] Blood Collection / Unknown 05/26/2021 4:30 AM CDT 05/26/2021 6:22 AM CDT us External Provider [facility] HEMATOLOGY ORDERABLES Fin al Result [facility] CLIA# [id number] [place] [address] * (ABNORMAL) COMPREHENSIVE METABOLIC PANEL (05/26/2021 4:30 AM CDT) SODIUM 144 136 - 145 mmol/L 05/26/2021 7:23 AM CDT [facility] POTASSIUM 3.7 3.4 - 5.1 mmol/L 05/26/2021 7:23 AM CDT [facility] CHLORIDE 109(H) 98 - 107 mmol/L 05/26/2021 7:23 AM CDT [facility] CO2 24 22 - 29 mmol/L 05/26/2021 7:23 AM CDT [facility] CALCIUM 8.3(L) 8.6 - 10.4 mg/dL 05/26/2021 7:23 AM [facility] BUN 19 6 - 20 mg/dL 05/26/2021 7:23 AM [facility] CREATININE 1.18(H) 0.51 - 0.95 mg/dL 05/26/2021 7:23 AM [facility] GLUCOSE 171(H) 74 - 99 mg/dL 05/26/2021 7:23 AM [facility] TOTAL PROTEIN 5.9(L) 6.3 - 8.7 g/dL 05/26/2021 7:23 AM [facility] ALBUMIN 2.6(L) 3.5 - 5.2 g/dL 05/26/2021 7:23 AM [facility] BILIRUBIN TOTAL 0.2(L) 0.3 - 1.2 mg/dL 05/26/2021 7:23 AM [facility] ALKALINE PHOSPHATASE 112 40 - 150 U/L 05/26/2021 7:23 AM [facility] AST 35(H) 0 - 33 U/L 05/26/2021 7:23 AM [facility] ALT 34(H) 0 - 33 U/L 05/26/2021 7:23 AM [facility] GFR 47 mL/min/1.7 3 sq meter 05/26/2021 7:23 AM [facility] Comment: eGFR has not been validated [...] mL/min/1.7 3 sq meter 05/26/2021 7:23 AM [facility] ANION GAP 11 8 - 16 mmol/L 05/26/2021 7:23 AM CDT [facility] - [facility] Blood Collection / Unknown 05/26/2021 4:30 AM CDT 05/26/2021 6:22 AM CDT us External Provider [facility] CHEMISTRY ORDERABLES Jennie l Result [facility] - [facility] CLIA# [id number] [place] [address] documented in this encounter Visit Diagnoses Not on filedocumented in this encounter
--- OUTSIDE RECORDS SUMMARY | 2025-06-22 09:51 | XMS_ITS | Encounter Summary ---
Author Organization [facility] Address [address] [place] [address] Care Team Providers Care Tow Truck Dispatcher Name Role Phone Unavailable Primary Care Provider Unavailabl e Encounter Details Date Type Department Care Team (Late st Contact Info) Description 06/11/2021 Lab Requisition [facility] Laboratory Services [address] [place] [address] [place] [address] [place] [address] Social History Tobacco Use Types [...] to Dark Yellow 06/11/2021 7:56 AM CDT [facility] SERVICES [facility] CLARITY UA Slightly Cloudy(A) Clear 06/11/2021 7:56 AM CDT [facility]ORY SERVICES - [facility] SPECIFIC GRAVITY UA 1.006 1.003 - 1.035 06/11/2021 7:56 AM CDT [facility]ORY SERVICES - [facility] PH UA 6.0 5.0 - 8.0 06/11/2021 7:56 AM CDT [facility] LEUKOCYTE ESTERASE UA 3+(A) Negative 06/11/2021 7:56 AM CDT [facility] NITRITE UA Negative Negative 06/11/2021 7:56 AM CDT [facility]ORY SERVICES [facility] PROTEIN UA Negative Negative 06/11/2021 7:56 AM CDT [facility]ORY SERVICES [facility] GLUCOSE UA Negative Negative 06/11/2021 7:56 AM CDT [facility] SERVICES [facility] KETONES UA Negative Negative 06/11/2021 7:56 AM CDT [facility] UROBILINOGEN UA Normal <2.0 mg/dL 7:56 AM CDT [facility]ORY SERVICES [facility] BILIRUBIN UA Negative Negative 06/11/2021 7:56 AM CDT [facility] BLOOD UA 1+(A) Negative 06/11/2021 7:56 AM CDT [facility]ORY SERVICES [facility] WBC UA 11-25(A) 0 - 2 /hpf 06/11/2021 7:56 AM CDT [facility] RBC UA 3-5(A) 0 - 2 /hpf 06/11/2021 7:56 AM CDT [facility]ORY SERVICES [facility] BACTERIA UA Negative Negative /hpf 06/11/2021 7:56 AM CDT [facility] LAB[facility]ATORY SERVICES [facility] EPITHELIAL CELLS, URINE 0-5 0 - 5 /hpf 06/11/2021 7:56 AM CDT [facility]ATORY SERVICES [facility] HYALINE CAST None Seen None Seen, 0-2 /lpf 06/11/2021 7:56 AM CDT [facility] Urine URINE SPECIMEN OBTAINED BY CLEAN CATCH PROCEDURE / Unknown Collection / Unknown 06/11/2021 12:01 AM CDT 06/11/2021 7:42 AM CDT us Nargis Guy MD URINE ORDERABLES Final Result [facility] Share0 [facility] CLIA# [id number] [place] [address] * URINE CULTURE (06/11/2021 12:01 AM CDT) CULTURE No growth at 24 hours 06/12/2021 1:08 PM CDT [facility] Urine Collection / Unknown 06/11/2021 12:01 AM CDT 06/11/2021 7:42 AM CDT us Nargis Guy MD MICROBIOLOGY - GENERAL ORDERABLE S Final Result Performing Organization Address City/[facility]/ZIP Co de Phone Number [facility] Share0 [facility] CLIA# [id number] [address] [place] [address] documented in this encounter Visit Diagnoses Not on filedocumented in this encounter
--- OUTSIDE RECORDS SUMMARY | 2025-06-22 09:51 | XMS_ITS | Encounter Summary ---
Author Organization [facility] Address [address] [place] [address] Care Team Providers Care Direct Selling Counselor Name Role Phone Karime Aguilera RN, Haresh K MD Primary Care Provider [phone] Reason for Visit * Reason Onset Date Comments Question 10/29/2023 Encounter Details Date Type Department Care Team (Late st Contact Info) Description 10/29/2023 Telephone [facility] - LABOR RELATIONS ANALYST [address] [facility] [address] [place] [address] Christy Khan [place] [address] [facility] [address] [place] [address] Question Social History Tobacco Use [...] Yesenia Shin RN - 10/29/2023 1:16 PM MASTIC FLOOR LAYER RN returned pt call & gathered further [...] pt's provider MD Alonso of above issues. IC FLOOR LAYER * Telephone Encounter - Ferny Pierre - 10/29/2023 12:40 PM CST Patient called stating she has a potential yeast infection and wanted to see about getting a prescription. Offered patient an appt, she preferred Dr Khan, put her down for next available on 11/26. IC FLOOR LAYER documented in this encounter Plan of Treatment Not on file documented as of this encounter Visit Diagnoses Not on filedocumented in this encounter Care Teams Direct Selling Counselor Relationship Specialty Start Date End Date Gurvinder Renteria MD [address] [place] [address] PCP - General 01/01/22 Karime Aguilera, RN 05/07/18 documented as of this encounter
--- OUTSIDE RECORDS SUMMARY | 2025-06-22 09:51 | XMS_ITS | Encounter Summary ---
Author Organization [facility] Address [address] [place] [address] Care Team Providers Care Gimp Buttonhole Machine Operator Name Role Phone Unavailable Primary Care Provider Unavailabl e Encounter Details Date Type Department Care Team (Late st Contact Info) Description 06/30/2021 Lab Requisition [facility] Laboratory Services [address] [place] [address] [place] [address] [place] [address] Social History Tobacco Use Types [...] - 10.5 K/uL 06/30/2021 11:22 AM CDT [facility] RBC 3.44(L) 3.90 - 4.90 M/uL 06/30/2021 11:22 AM CDT [facility] HEMOGLOBIN 9.4(L) 11.8 - 14.8 g/dL 06/30/2021 11:[facility] HEMATOCRIT 29.4(L) 35.5 - 44.0 % 06/30/2021 11:22 AM CDT [facility] MCV 85.4 82.0 - 99.0 fL 06/30/2021 11:22 AM CDT [facility] MCH 27.3(L) 27.8 - 34.5 pg 06/30/2021 11:22 AM [facility] MCHC 32.0(L) 32.5 - 35.5 g/dL 06/30/2021 11:22 AM [facility] RDW 15.6(H) 11.5 - 14.5 % 06/30/2021 11:22 AM CDT [facility] PLATELETS 408 160 - 420 K/uL 06/30/2021 11:22 AM [facility] MPV 7.9(L) 8.7 - 12.7 fL 06/30/2021 11:22 AM CDT [facility] LABORATORY SERVICES [facility] NEUTROPHILS 53 % 06/30/2021 11:22 AM CDT [facility] LABORATORY [facility] LYMPHOCYTES 33 % 06/30/2021 11:22 AM CDT [facility] LABORATORY SERVICES [facility] MONOCYTES 8 % 06/30/2021 11:22 AM CDT [facility] LABORATORY SERVICES [facility] EOSINOPHILS 5 % 06/30/2021 11:22 AM CDT [facility]OR[facility]ORY SERVICES [facility] BASOPHILS 1 % 06/30/2021 11:22 AM CDT [facility] LABORATORY SERVICES [facility] NEUTROPHIL ABSOLUTE 3.50 1.90 - 7.00 K/uL 06/30/2021 11:22 AM CDT [facility] LABORATORY [facility] LYMPHOCYTE ABSOLUTE 2.20 0.70 - 4.50 K/uL 06/30/2021 11:22 AM CDT [facility] MONOCYTE ABSOLUTE 0.50 0.10 - 1.30 K/uL 06/30/2021 11:22 AM CDT [facility] LABORATORY SERVICES [facility] EOSINOPHIL ABSOLUTE 0.30 0.00 - 0.70 K/uL 06/30/2021 11:22 AM CDT [facility] LABORATORY SERVICES [facility] BASOPHILS ABSOLUTE 0.10 0.00 - 0.20 K/uL 06/30/2021 11:22 AM CDT [facility] Blood Collection / Unknown 06/30/2021 3:45 AM CDT 06/30/2021 10:45 AM CDT Nargis Guy MD HEMATOLOGY ORDERABLES Final Resu lt [facility] CLIA# [id number] [place] [address] * (ABNORMAL) COMPREHENSIVE METABOLIC PANEL (06/30/2021 3:45 AM CDT) SODIUM 139 136 - 145 mmol/L 06/30/2021 11:40 AM CDT [facility] POTASSIUM 4.3 3.4 - 5.1 mmol/L 06/30/2021 11:40 AM CDT [facility] LAB[facility]ORY [facility] CHLORIDE 103 98 - 107 mmol/L 06/30/2021 11:40 AM CDT [facility] CO2 23 22 - 29 mmol/L 06/30/2021 11:40 AM CDT [facility] CALCIUM 8.7 8.6 - 10.4 mg/dL 06/30/2021 11:40 AM CDT [facility] BUN 12 6 - 20 mg/dL 06/30/2021 11:40 AM CDT [facility] LABORATORY SERVICES [facility] CREATININE 0.89 0.51 - 0.95 mg/dL 06/30/2021 11:40 AM CDT [facility] LAB[facility]ORY [facility] GLUCOSE 107(H) 74 - 99 mg/dL 06/30/2021 11:40 AM CDT [facility]ORY [facility] TOTAL PROTEIN 6.0(L) 6.3 - 8.7 g/dL 06/30/2021 11:40 AM [facility] ALBUMIN 2.7(L) 3.5 - 5.2 g/dL 06/30/2021 11:40 AM T [facility] BILIRUBIN TOTAL <0.2(L) 0.2 - 1.1 mg/dL 06/30/2021 11:40 AM T [facility] ALKALINE PHOSPHATASE 110 40 - 150 U/L 06/30/2021 11:40 AM T [facility] AST 23 0 - 33 U/L 06/30/2021 11:40 AM [facility] ALT 18 0 - 33 U/L 06/30/2021 11:40 AM [facility] GFR >60 mL/min/1.7 3 sq meter 06/30/2021 11:40 AM T [facility] Comment: eGFR has not been validated [...] 3 sq meter 06/30/2021 11:40 AM CDT [facility] ANION GAP 13 8 - 16 mmol/L 06/30/2021 11:40 AM T [facility] Blood Collection / Unknown 06/30/2021 3:45 AM CDT 06/30/2021 10:45 AM CDT us Nargis Guy MD CHEMISTRY ORDERABLES Final Resul t [facility] CLIA# [id number] [place] [address] documented in this encounter Visit Diagnoses Not on filedocumented in this encounter
--- OUTSIDE RECORDS SUMMARY | 2025-06-22 09:51 | XMS_ITS | Encounter Summary ---
Author Organization [facility] Address [address] [place] [address] Care Team Providers Care Job Recruiter Name Role Phone Unavailable Primary Care Provider Unavailabl e Encounter Details Date Type Department Care Team (Late st Contact Info) Description 05/16/2021 Lab Requisition [facility] Laboratory Services [address] [place] [address] [place] [address] [place] [address] Social History Tobacco Use Types [...] - 145 mmol/L 05/16/2021 12:14 PM CDT [facility]AT[facility] [place] POTASSIUM 4.9 3.4 - 5.1 mmol/L 05/16/2021 12:14 PM CDT [facility] CHLORIDE 99 98 - 107 mmol/L 05/16/2021 12:14 PM CDT [facility] CO2 23 22 - 29 mmol/L 05/16/2021 12:14 PM CDT [facility] CALCIUM 8.6 8.6 - 10.4 mg/dL 05/16/2021 12:14 PM CDT [facility] BUN 27(H) 6 - 20 mg/dL 05/16/2021 12:14 PM CDT [facility] CREATININE 2.53(H) 0.51 - 0.95 mg/dL 05/16/2021 12:14 PM CDT [facility] GLUCOSE 126(H) 74 - 99 mg/dL 05/16/2021 12:14 PM T [facility] GFR 19 mL/min/1.7 3 sq meter 05/16/2021 12:14 PM T [facility] Comment: eGFR has [...] 3 sq meter 05/16/2021 12:14 PM CDT [facility] ANION GAP 14 8 - 16 mmol/L 05/16/2021 12:14 PM CDT [facility] Blood 05/16/2021 3:00 AM CDT 05/16/2021 11:44 AM CDT us Nargis Guy MD CHEMISTRY ORDERABLES Final Resul t [facility] CLIA# [id number] [place] [address] documented in this encounter Visit Diagnoses Not on filedocumented in this encounter
--- OUTSIDE RECORDS SUMMARY | 2025-06-22 09:51 | XMS_ITS | Encounter Summary ---
Author Organization [facility] Address [address] [place] [address] Care Team Providers Care Stopperer Assembler Name Role Phone Unavailable Primary Care Provider Unavailabl e Encounter Details Date Type Department Care Team (Late st Contact Info) Description 06/21/2021 Lab Requisition [facility] Laboratory Services [address] [place] [address] [place] [address] [place] [address] Social History Tobacco Use [...] - 10.5 K/uL 06/21/2021 1:36 PM CDT [facility] RBC 3.66(L) 3.90 - 4.90 M/uL 06/21/2021 1:36 PM [facility] HEMOGLOBIN 10.1(L) 11.8 - 14.8 g/dL 06/21/2021 1:36 PM [facility] HEMATOCRIT 31.1(L) 35.5 - 44.0 % 06/21/2021 1:36 PM CDT [facility] MCV 84.9 82.0 - 99.0 fL 06/21/2021 1:[facility] MCH 27.5(L) 27.8 - 34.5 pg 06/21/2021 1:36 PM [facility] MCHC 32.3(L) 32.5 - 35.5 g/dL 06/21/2021 1:36 PM [facility] RDW 15.7(H) 11.5 - 14.5 % 06/21/2021 1:36 PM CDT [facility] PLATELETS 397 160 - 420 K/uL 06/21/2021 1:36 PM [facility] MPV 7.6(L) 8.7 - 12.7 fL 06/21/2021 1:36 PM CDT [facility] NEUTROPHILS 64 % 06/21/2021 1:36 PM CDT [facility] LYMPHOCYTES 26 % 06/21/2021 1:36 PM CDT [facility] MONOCYTES 7 % 06/21/2021 1:36 PM CDT [facility] SERVICES [facility] EOSINOPHILS 3 % 06/21/2021 1:36 PM CDT [facility] BASOPHILS 0 % 06/21/2021 1:36 PM CDT [facility] NEUTROPHIL ABSOLUTE 5.00 1.90 - 7.00 K/uL 06/21/2021 1:36 PM CDT [facility] LYMPHOCYTE ABSOLUTE 2.00 0.70 - 4.50 K/uL 06/21/2021 1:36 PM CDT [facility] MONOCYTE ABSOLUTE 0.50 0.10 - 1.30 K/uL 06/21/2021 1:36 PM CDT [facility] SERVICES [facility] EOSINOPHIL ABSOLUTE 0.30 0.00 - 0.70 K/uL 06/21/2021 1:36 PM CDT [facility] SERVICES [facility] BASOPHILS ABSOLUTE 0.00 0.00 - 0.20 K/uL 06/21/2021 1:36 PM CDT [facility] Blood Collection / Unknown 06/21/2021 11:20 AM CDT 06/21/2021 1:28 PM CDT Nargis Guy MD HEMATOLOGY ORDERABLES Final Resu lt [facility] CLIA# [id number] [place] [address] * (ABNORMAL) COMPREHENSIVE METABOLIC PANEL (06/21/2021 11:20 AM CDT) Pathologist [facility] SODIUM 137 136 - 145 mmol/L 06/21/2021 2:02 PM CDT [facility] POTASSIUM 4.3 3.4 - 5.1 mmol/L 06/21/2021 2:02 PM CDT [facility] CHLORIDE 102 98 - 107 mmol/L 06/21/2021 2:02 PM CDT [facility] CO2 25 22 - 29 mmol/L 06/21/2021 2:02 PM CDT [facility] CALCIUM 9.2 8.6 - 10.4 mg/dL 06/21/2021 2:02 PM CDT [facility] BUN 11 6 - 20 mg/dL 06/21/2021 2:02 PM CDT [facility] CREATININE 0.90 0.51 - 0.95 mg/dL 06/21/2021 2:02 PM CDT [facility] GLUCOSE 130(H) 74 - 99 mg/dL 06/21/2021 2:02 PM CDT [facility] TOTAL PROTEIN 6.6 6.3 - 8.7 g/dL 06/21/2021 2:02 PM T [facility] ALBUMIN 2.8(L) 3.5 - 5.2 g/dL 06/21/2021 2:02 PM T [facility] BILIRUBIN TOTAL 0.2(L) 0.3 - 1.2 mg/dL 06/21/2021 2:02 PM T [facility] ALKALINE PHOSPHATASE 120 40 - 150 U/L 06/21/2021 2:02 PM T [facility] AST 27 0 - 33 U/L 06/21/2021 2:02 PM [facility] ALT 23 0 - 33 U/L 06/21/2021 2:02 PM T [facility] GFR >60 mL/min/1.7 3 sq meter 06/21/2021 2:02 PM T [facility] Comment: eGFR has not been validated for [...] 3 sq meter 06/21/2021 2:02 PM CDT [facility] ANION GAP 10 8 - 16 mmol/L 06/21/2021 2:02 PM T [facility] Blood Collection / Unknown 06/21/2021 11:20 AM CDT 06/21/2021 1:28 PM CDT us Nargis Guy MD CHEMISTRY ORDERABLES Final Resul t [facility] CLIA# [id number] [place] [address] documented in this encounter Visit Diagnoses Not on filedocumented in this encounter
--- OUTSIDE RECORDS SUMMARY | 2025-06-22 09:51 | XMS_ITS | Encounter Summary ---
Author Organization [facility] Address [address] [place] [address] Care Team Providers Care Technology Director Name Role Phone Unavailable Primary Care Provider Unavailabl e Encounter Details Date Type Department Care Team (Late st Contact Info) Description 07/11/2021 Lab Requisition [facility] Laboratory Services [address] [place] [address] [place] [address] [place] [address] Social History Tobacco Use Types [...] - 10.5 K/uL 07/11/2021 9:11 AM CDT [facility] SERVICES [facility] RBC 3.85(L) 3.90 - 4.90 M/uL 07/11/2021 9:11 AM CDT [facility] HEMOGLOBIN 10.5(L) 11.8 - 14.8 g/dL 07/11/2021 9:11 AM CDT [facility] HEMATOCRIT 32.4(L) 35.5 - 44.0 % 07/11/2021 9:[facility] MCV 84.0 82.0 - 99.0 fL 07/11/2021 9:11 AM CDT [facility] MCH 27.1(L) 27.8 - 34.5 pg 07/11/2021 9:11 AM CDT [facility] MCHC 32.3(L) 32.5 - 35.5 g/dL 07/11/2021 9:11 AM CDT [facility]ORATORY SERVICES [facility] RDW 15.2(H) 11.5 - 14.5 % 07/11/2021 9:11 AM CDT [facility] PLATELETS 404 160 - 420 K/uL 07/11/2021 9:11 AM CDT [facility] MPV 8.0(L) 8.7 - 12.7 fL 07/11/2021 9:11 AM CDT [facility] LABORATORY SERVICES [facility] NEUTROPHILS 49 % 07/11/2021 9:11 AM CDT [facility]ORY SERVICES [facility] LYMPHOCYTES 37 % 07/11/2021 9:11 AM CDT [facility]ORY SERVICES [facility] MONOCYTES 8 % 07/11/2021 9:11 AM CDT [facility] SERVICES [facility] EOSINOPHILS 5 % 07/11/2021 9:11 AM CDT [facility]ORY SERVICES [facility] BASOPHILS 1 % 07/11/2021 9:11 AM CDT [facility] SERVICES [facility] NEUTROPHIL ABSOLUTE 3.90 1.90 - 7.00 K/uL 07/11/2021 9:11 AM CDT [facility] LYMPHOCYTE ABSOLUTE 3.00 0.70 - 4.50 K/uL 07/11/2021 9:11 AM CDT [facility]ORY SERVICES [facility] MONOCYTE ABSOLUTE 0.60 0.10 - 1.30 K/uL 07/11/2021 9:11 AM CDT [facility] EOSINOPHIL ABSOLUTE 0.40 0.00 - 0.70 K/uL 07/11/2021 9:11 AM CDT [facility] LABORATORY SERVICES - [facility] BASOPHILS ABSOLUTE 0.10 0.00 - 0.20 K/uL 07/11/2021 9:11 AM CDT [facility] Blood Collection / Unknown 07/11/2021 5:00 AM CDT 07/11/2021 8:43 AM CDT us Nargis Guy MD HEMATOLOGY ORDERABLES Final Resu lt [facility] [[email or web address] CLIA# [id number] [place] [address] documented in this encounter Visit Diagnoses Not on filedocumented in this encounter
--- OUTSIDE RECORDS SUMMARY | 2025-06-22 09:51 | XMS_ITS | Encounter Summary ---
Author Organization [facility] Address [address] [place] [address] Care Team Providers Care Benefits Advisor Name Role Phone Karime Aguilera RN, Haresh K MD Primary Care Provider Reason for Visit * Reason Onset Date Comments Request Lab Order 09/10/2023 Imaging 09/10/2023 Encounter Details Date Type Department Care Team (Late st Contact Info) Description 09/10/2023 Telephone [facility] - CHIEF LOAD DISPATCHER [address] [place] [address] Christy Khan MD [address] [facility] [place] [address] Request Lab Order; Imaging Social [...] needs screening mammogram ordered and sent to [place]. RN ordered and faxed to [phone] RN scheduled pt for WWE 10/14/2023 9:15 AM Christy Khan MD Pt accepts appt * Telephone Encounter - Nataliia Bangura - 09/10/2023 10:05 AM CDT Pt wants Mammogram order sent to [facility] in [place], [place]. documented in this encounter Plan of Treatment Not on file documented as of this encounter Visit Diagnoses Diagnosis Encounter for screening mammogram for malignant neoplasm of breast- Primary Other screening mammogram documented in this encounter Care Teams Benefits Advisor Relationship Specialty Start Date End Date Gurvinder Renteria MD [address] [place] [address] PCP - General 01/01/22 Karime Aguilera RN 05/07/18 documented as of this encounter
--- OUTSIDE RECORDS SUMMARY | 2025-06-22 09:51 | XMS_ITS | Encounter Summary ---
Author Organization [facility] Address [address] [place] [address] Care Team Providers Care Umbrella Repairer Name Role Phone Unavailable Primary Care Provider Unavailabl e Encounter Details Date Type Department Care Team (Late st Contact Info) Description 07/09/2021 Lab Requisition [facility] Laboratory Services [address] [place] [address] [facility], External Provider [address] [place] [address] Social History Tobacco Use Types Packs/Day Years [...] 20 - 40 mg/dL [facility] / Unknown 07/09/2021 4:00 AM CDT 07/09/2021 6:02 AM CDT us External Provider [facility] CHEMISTRY ORDERABLES Jennie inocencio Result [facility] CLIA# [id number] [facility] [place] [address] * (ABNORMAL) CBC WITH DIFFERENTIAL (07/09/2021 4:00 AM CDT) WBC 7.3 4.5 - 10.5 K/uL 07/09/2021 6:20 AM CDT [facility] RBC 3.75(L) 3.90 - 4.90 M/uL 07/09/2021 6:20 AM CDT [facility] HEMOGLOBIN 10.0(L) 11.8 - 14.8 g/dL 07/09/2021 6:20 AM CDT [facility] HEMATOCRIT 31.5(L) 35.5 - 44.0 % 07/09/2021 6:20 AM CDT [facility] MCV 83.8 82.0 - 99.0 fL 07/09/2021 6:20 AM CDT [facility] MCH 26.8(L) 27.8 - 34.5 pg 07/09/2021 6:20 AM CDT [facility] MCHC 31.9(L) 32.5 - 35.5 g/dL 07/09/2021 6:20 AM CDT [facility] RDW 15.7(H) 11.5 - 14.5 % 07/09/2021 6:20 AM CDT [facility] PLATELETS 374 160 - 420 K/uL 07/09/2021 6:20 AM CDT [facility] MPV 7.8(L) 8.7 - 12.7 fL 07/09/2021 6:20 AM CDT [facility] Nem[facility] NEUTROPHILS 52 % 07/09/2021 6:20 AM CDT [facility] LABORATORY SERVICES [facility] LYMPHOCYTES 36 % 07/09/2021 6:20 AM CDT [facility] LABORATORY SERVICES [facility] MONOCYTES 6 % 07/09/2021 6:20 AM CDT [facility] LABORATORY SERVICES [facility] EOSINOPHILS 5 % 07/09/2021 6:20 AM CDT [facility] LABORATORY SERVICES [facility] BASOPHILS 1 % 07/09/2021 6:20 AM CDT [facility] LABORATORY SERVICES [facility] NEUTROPHIL ABSOLUTE 3.80 1.90 - 7.00 K/uL 07/09/2021 6:20 AM CDT [facility] LABORATORY SERVICES [facility] LYMPHOCYTE ABSOLUTE 2.60 0.70 - 4.50 K/uL 07/09/2021 6:20 AM CDT [facility] LABORATORY SERVICES [facility] MONOCYTE ABSOLUTE 0.50 0.10 - 1.30 K/uL 07/09/2021 6:20 AM CDT [facility] LABORATORY SERVICES [facility] EOSINOPHIL ABSOLUTE 0.40 0.00 - 0.70 K/uL 07/09/2021 6:20 AM CDT [facility] LABORATORY SERVICES [facility] BASOPHILS ABSOLUTE 0.10 0.00 - 0.20 K/uL 07/09/2021 6:20 AM CDT [facility] LABORATORY SERVICES [facility] Blood Collection / Unknown 07/09/2021 4:00 AM CDT 07/09/2021 6:02 AM CDT us External Provider [facility] HEMATOLOGY ORDERABLES Fin al Result [facility] LABORATORY [facility] CLIA# [id number] [place] [address] * (ABNORMAL) COMPREHENSIVE METABOLIC PANEL (07/09/2021 4:00 AM CDT) SODIUM 137 136 - 145 mmol/L 07/09/2021 6:41 AM CDT [facility] LABORATORY [facility] POTASSIUM 4.4 3.4 - 5.1 mmol/L 07/09/2021 6:41 AM CDT [facility] LABORATORY [facility] CHLORIDE 101 98 - 107 mmol/L 07/09/2021 6:41 AM [facility] CO2 24 22 - 29 mmol/L 07/09/2021 6:41 AM [facility] CALCIUM 9.2 8.6 - 10.4 mg/dL 07/09/2021 6:41 AM [facility] BUN 15 6 - 20 mg/dL 07/09/2021 6:41 AM [facility] CREATININE 0.92 0.51 - 0.95 mg/dL 07/09/2021 6:41 AM [facility] GLUCOSE 129(H) 74 - 99 mg/dL 07/09/2021 6:41 AM [facility] TOTAL PROTEIN 6.5 6.3 - 8.7 g/dL 07/09/2021 6:41 AM [facility] ALBUMIN 3.1(L) 3.5 - 5.2 g/dL 07/09/2021 6:41 AM [facility] BILIRUBIN TOTAL <0.2(L) 0.2 - 1.1 mg/dL 07/09/2021 6:41 AM [facility] ALKALINE PHOSPHATASE 99 40 - 150 U/L 07/09/2021 6:41 AM [facility] AST 15 0 - 33 U/L 07/09/2021 6:41 AM [facility] ALT 11 0 - 33 U/L 07/09/2021 6:41 AM [facility] GFR >60 mL/min/1.7 3 sq meter 07/09/2021 6:41 AM [facility] Comment: [...] sq meter 07/09/2021 6:41 AM CDT [facility] LABORATORY SERVICES [facility] ANION GAP 12 8 - 16 mmol/L 07/09/2021 6:41 AM CDT [facility] LABORATORY [facility] Blood Collection / Unknown 07/09/2021 4:00 AM CDT 07/09/2021 6:02 AM CDT us External Provider [facility] CHEMISTRY ORDERABLES Jennie l Result [facility] Nem[facility] CLIA# [id number] [place] [address] documented in this encounter Visit Diagnoses Not on filedocumented in this encounter
--- OUTSIDE RECORDS SUMMARY | 2025-06-22 09:51 | XMS_ITS | Encounter Summary ---
Author Organization [facility] Address [address] [place] [address] Care Team Providers Care Electric Tripper Machine Operator Name Role Phone Unavailable Primary Care Provider Unavailabl e Encounter Details Date Type Department Care Team (Late st Contact Info) Description 05/18/2021 Lab Requisition [facility] Laboratory Services [address] [place] [address] [place] [address] [place] [address] Social History Tobacco Use Types [...] - 145 mmol/L 05/18/2021 8:44 AM CDT [facility] LABORATORY SERVICES [place] POTASSIUM 5.7(H) 3.4 - 5.1 mmol/L 05/18/2021 8:44 AM CDT [facility] CHLORIDE 101 98 - 107 mmol/L 05/18/2021 8:44 AM CDT [facility] CO2 24 22 - 29 mmol/L 05/18/2021 8:44 AM T [facility] CALCIUM 8.7 8.6 - 10.4 mg/dL 05/18/2021 8:44 AM CDT [facility] BUN 58(H) 6 - 20 mg/dL 05/18/2021 8:44 AM T [facility] CREATININE 3.20(H) 0.51 - 0.95 mg/dL 05/18/2021 8:44 AM T [facility] GLUCOSE 102(H) 74 - 99 mg/dL 05/18/2021 8:44 AM T [facility] GFR 15 mL/min/1.7 3 sq meter 05/18/2021 8:44 AM T [facility] Comment: eGFR has not been validated [...] 3 sq meter 05/18/2021 8:44 AM CDT [facility] ANION GAP 14 8 - 16 mmol/L 05/18/2021 8:44 AM T [facility] Blood Collection / Unknown 05/18/2021 4:57 AM CDT 05/18/2021 8:11 AM CDT us Nargis Guy MD CHEMISTRY ORDERABLES Final Resul t [facility] CLIA# [id number] [place] [address] documented in this encounter Visit Diagnoses Not on filedocumented in this encounter
--- OUTSIDE RECORDS SUMMARY | 2025-06-22 09:51 | XMS_ITS | Encounter Summary ---
Author Organization [facility] Address [address] [place] [address] Care Team Providers Care Barrel Washer Name Role Phone Unavailable Primary Care Provider Unavailabl e Encounter Details Date Type Department Care Team (Late st Contact Info) Description 06/11/2021 Lab Requisition [facility] Laboratory Services [address] [place] [address] [place] [address] [place] [address] Social History Tobacco Use Types [...] - 40 mg/dL 06/11/2021 5:53 PM CDT [facility] Blood Collection / Unknown 06/11/2021 11:20 AM CDT 06/11/2021 1:21 PM CDT Nargis Guy MD CHEMISTRY ORDERABLES Final Resul t [facility] CLIA# [id number] [facility] [place] [address] * (ABNORMAL) CBC WITH DIFFERENTIAL (06/11/2021 11:20 AM CDT) Pathologist [facility] WBC 8.8 4.5 - 10.5 K/uL 06/11/2021 1:38 PM CDT [facility] RBC 3.64(L) 3.90 - 4.90 M/uL 06/11/2021 1:38 PM CDT [facility] HEMOGLOBIN 10.1(L) 11.8 - 14.8 g/dL 06/11/2021 1:38 PM CDT [facility] HEMATOCRIT 31.5(L) 35.5 - 44.0 % 06/11/2021 1:38 PM CDT [facility] MCV 86.7 82.0 - 99.0 fL 06/11/2021 1:38 PM CDT [facility] MCH 27.9 27.8 - 34.5 pg 06/11/2021 1:38 PM CDT [facility] MCHC 32.2(L) 32.5 - 35.5 g/dL 06/11/2021 1:38 PM CDT [facility] RDW 15.8(H) 11.5 - 14.5 % 06/11/2021 1:38 PM CDT [facility] PLATELETS 470(H) 160 - 420 K/uL 06/11/2021 1:38 PM CDT [facility] MPV 8.0(L) 8.7 - 12.7 fL 06/11/2021 1:38 PM CDT [facility] LABORATORY SERVICES [facility] NEUTROPHILS 62 % 06/11/2021 1:38 PM CDT [facility] LABORATORY SERVICES [facility] LYMPHOCYTES 23 % 06/11/2021 1:38 PM CDT [facility] LABORATORY SERVICES [facility] MONOCYTES 9 % 06/11/2021 1:38 PM CDT [facility] LABORATORY SERVICES [facility] EOSINOPHILS 5 % 06/11/2021 1:38 PM CDT [facility] LABORATORY SERVICES [facility] BASOPHILS 1 % 06/11/2021 1:38 PM CDT [facility] LABORATORY SERVICES [facility] NEUTROPHIL ABSOLUTE 5.40 1.90 - 7.00 K/uL 06/11/2021 1:38 PM CDT [facility] LABORATORY SERVICES [facility] LYMPHOCYTE ABSOLUTE 2.00 0.70 - 4.50 K/uL 06/11/2021 1:38 PM CDT [facility] LABORAT[facility] MONOCYTE ABSOLUTE 0.80 0.10 - 1.30 K/uL 06/11/2021 1:38 PM CDT [facility] LABORATORY SERVICES [facility] EOSINOPHIL ABSOLUTE 0.50 0.00 - 0.70 K/uL 06/11/2021 1:38 PM CDT [facility] LABORATORY SERVICES [facility] BASOPHILS ABSOLUTE 0.10 0.00 - 0.20 K/uL 06/11/2021 1:38 PM CDT [facility] LABOR[facility] Blood Collection / Unknown 06/11/2021 11:20 AM CDT 06/11/2021 1:21 PM CDT us Nargis Guy MD HEMATOLOGY ORDERABLES Final Resu lt [facility] LABORATORY [facility] CLIA# [id number] [place] [address] * (ABNORMAL) COMPREHENSIVE METABOLIC PANEL (06/11/2021 11:20 AM CDT) SODIUM 140 136 - 145 mmol/L 06/11/2021 1:52 PM CDT [facility] LABORAT[facility] POTASSIUM 4.1 3.4 - 5.1 mmol/L 06/11/2021 1:[address] [facility] CHLORIDE 104 98 - 107 mmol/L 06/11/2021 1:[address] [facility] CO2 24 22 - 29 mmol/L 06/11/2021 1:[address] [facility] CALCIUM 8.6 8.6 - 10.4 mg/dL 06/11/2021 1:[address] [facility] BUN 10 6 - 20 mg/dL 06/11/2021 1:[address] [facility] CREATININE 0.94 0.51 - 0.95 mg/dL 06/11/2021 1:[address] [facility] GLUCOSE 157(H) 74 - 99 mg/dL 06/11/2021 1:[address] [facility] TOTAL PROTEIN 6.1(L) 6.3 - 8.7 g/dL 06/11/2021 1:[address] [facility] ALBUMIN 2.7(L) 3.5 - 5.2 g/dL 06/11/2021 1:[address] [facility] BILIRUBIN TOTAL <0.2(L) 0.3 - 1.2 mg/dL 06/11/2021 1:[address] [facility] ALKALINE PHOSPHATASE 155(H) 40 - 150 U/L 06/11/2021 1:[address] [facility] AST 45(H) 0 - 33 U/L 06/11/2021 1:[address] [facility] ALT 44(H) 0 - 33 U/L 06/11/2021 1:[address] [facility] GFR >60 mL/min/1.7 3 sq meter 06/11/2021 1:[address] [facility] Comment: [...] 3 sq meter 06/11/2021 1:52 PM CDT [facility] ANION GAP 12 8 - 16 mmol/L 06/11/2021 1:52 PM CDT [facility] Blood Collection / Unknown 06/11/2021 11:20 AM CDT 06/11/2021 1:21 PM CDT us Nargis Guy MD CHEMISTRY ORDERABLES Final Resul t [facility] CLIA# [id number] [place] [address] documented in this encounter Visit Diagnoses Not on filedocumented in this encounter
--- OUTSIDE RECORDS SUMMARY | 2025-06-22 09:51 | XMS_ITS | Encounter Summary ---
Author Organization [facility] Address [address] [place] [address] Care Team Providers Care Account Services Associate Name Role Phone Unavailable Primary Care Provider Unavailabl e Encounter Details Date Type Department Care Team (Late st Contact Info) Description 06/11/2021 Lab Requisition [facility] [id number] [place] [address] [place] [address] [place] [address] Social History Tobacco Use Types [...]
[2025-06-22] MEDS: ACETAMINOPHEN 325 MG TABLET 650 MG PO ×2 (10:45→17:57)
[2025-06-22 10:59] LABS: Hemoglobin A1C 6.7 % (<5.7)
[2025-06-22] MEDS: INSULIN ASPART (*BKC) 100 UNITS/ML SUB-Q (12:21)
--- NOTE | 2025-06-22 13:42 | PCOTNOTE ---
Pt has been bedbound since 2020. Per hospitalist and caretaker grounds, no need for therapy evals as pt has been accepted to [facility] at this time. Will cancel OT evaluation order.
[2025-06-22 14:00] VITALS: BP 113/60; PULSE 75; RESP 20; TEMP 36.4; O2SAT 94
--- NOTE | 2025-06-22 15:11 | P.DS_ITS ---
DS: Admitting Diagnosis Discharge Date 06/22/2025 Admitting Diagnosis failure to thrive htn dm afib copd DS: Discharge Diagnosis Discharge Diagnosis (1) Failure to thrive: Status: Acute (2) Hypertension: Code(s): I10 - Essential (primary) hypertension Status: Acute (3) T2DM (type 2 diabetes mellitus): Code(s): E11.9 - Type 2 diabetes mellitus without complications Status: Acute (4) Atrial fibrillation: Code(s): I48.91 - Unspecified atrial fibrillation Status: Acute (5) COPD (chronic obstructive pulmonary disease): Code(s): J44.9 - Chronic obstructive pulmonary disease, unspecified Status: Acute DS: Summary Hospital Course Reason for hospitalization: failure to thrive htn dm afib copd Hospital Course: 64 year old female with past medical history of hypertension, diabetes, COPD, Afib on anticoagulation and depression presents to the hospital for weakness. Patient stated unable to get out of bed on her own or take care of herself. She had no complaints denying chest pain, palpitations, shortness of breath, nausea/vomiting, abdominal pain, and urinary symptoms. Patient accepted for NH placement at [facility]. During admission patients glucose noted to be only slightly elevated despite not being on her home lantus of 42 units qam and 46 units qhs. Discussed this with patient and she states that she has not been taking her lantus for several weeks as glucose has been running between 94-114 at home and she was started on Trulicity by her PCP. Checked an a1c which was 6.7. Disucussed with patient that given the elevated glucose on am labs of 153 and POC glucose of 212 around lunch will start her on a low lantus dose of 10 units qHS. She stated understanding. Patient to remain on her trulicity and metformin as previously prescribed. The NH to closely monitor patients glucose levels and adjust lantus as needed per the PCP. Patient had no complaints at time of discharge denying chest pain, shortness a breath, palpitations, nausea/vomiting, abdominal pain, and UTI like symptoms. Patient discharged to NH in a stable condition. She is to follow up with her PCP in 1 week. Status at Discharge Functional status at discharge: wheelchair bound Time Spent with Patient Time attestation: Total time spent providing and/or coordinating discharge services: Time spent: Greater than 30 minutes Exam Narrative: AF HR 64 RR 16 Spo2 95 BP 149/64 General: female in no acute respiratory distress who is nontoxic appearing, lying semi recumbent in bed. HEENT: Normocephalic. Atraumatic. Extraocular movement intact. Sclera clear and anicteric. No facial asymmetry. Chest: Lungs are clear to auscultation bilaterally. No wheezes or crackles. CV: Heart was regular rate and rhythm. S1-S2. No murmurs, gallops, or rubs. Abd: Abdomen was soft. Nontender. Nondistended. Positive bowel sounds. Ext: No clubbing, cyanosis, or edema. DP pulses bilaterally. Neuro: Patient is alert and oriented x3. Speech is clear. DS: Data Data Completed and Pending Completed studies during hospitalization: chest xr Labs on day of discharge: Labs from last 24 hours 06/22/25 06/22/25 06/22/25 11:45 08:15 06:16 WBC 9.0 RBC 5.58 H Hgb 15.8 H Hct 49.2 H MCV 88.2 MCH 28.3 MCHC 32.1 RDW 14.7 H Plt Count 228 MPV 8.9 Immature Gran % (Auto) 0.7 H Neut % (Auto) 57.5 Lymph % (Auto) 32.9 [place] % (Auto) 6.7 Eos % (Auto) 1.8 Baso % (Auto) 0.4 Lymph # (Auto) 2.96 [place] # (Auto) 0.6 Eos # (Auto) 0.2 Baso # (Auto) 0.0 Abs Immat Gran (auto) 0.06 H Absolute Neuts (auto) 5.2 Absolute Nucleated RBC 0.000 Nucleated RBC % 0.0 Sodium 138 Potassium 4.1 Chloride 101 Carbon Dioxide 30 Anion Gap 7 BUN 15 Creatinine 1.05 H Estim Creat Clear Calc 75 Estimated GFR 53 L Glucose 153 H POC Capillary Glucose 212 H 161 H Hemoglobin A1c Calcium 9.2 Total Bilirubin AST ALT Alkaline Phosphatase Total Protein Albumin Urine Color Urine Appearance Urine pH Ur Specific [place] Urine Protein Urine Glucose (UA) Urine Ketones Ur Blood (Man) Urine Nitrate Urine Bilirubin Urine Urobilinogen Leukocyte Esterase Rfl 06/22/25 06/21/25 06/21/25 06:01 20:12 16:25 WBC RBC Hgb Hct MCV MCH MCHC RDW Plt Count MPV Immature Gran % (Auto) Neut % (Auto) Lymph % (Auto) [place] % (Auto) Eos % (Auto) Baso % (Auto) Lymph # (Auto) [place] # (Auto) Eos # (Auto) Baso # (Auto) Abs Immat Gran (auto) Absolute Neuts (auto) Absolute Nucleated RBC Nucleated RBC % Sodium Potassium Chloride Carbon Dioxide Anion Gap BUN Creatinine Estim Creat Clear Calc Estimated GFR Glucose POC Capillary Glucose 128 H Hemoglobin A1c 6.7 H Calcium Total Bilirubin AST ALT Alkaline Phosphatase Total Protein Albumin Urine Color Yellow Urine Appearance Clear Urine pH 5.5 Ur Specific [place] 1.011 Urine Protein Negative Urine Glucose (UA) 1+ H Urine Ketones Negative Ur Blood (Man) Negative Urine Nitrate Negative Urine Bilirubin Negative Urine Urobilinogen 0.2 Leukocyte Esterase Rfl Negative 06/21/25 15:43 WBC 10.9 H RBC 5.68 H Hgb 15.9 H Hct 51.6 H MCV 90.8 MCH 28.0 MCHC 30.8 L RDW 14.8 H Plt Count 241 MPV 9.2 Immature Gran % (Auto) 0.6 H Neut % (Auto) 62.5 Lymph % (Auto) 29.3 [place] % (Auto) 5.8 Eos % (Auto) 1.2 Baso % (Auto) 0.6 Lymph # (Auto) 3.19 [place] # (Auto) 0.6 Eos # (Auto) 0.1 Baso # (Auto) 0.1 Abs Immat Gran (auto) 0.06 H Absolute Neuts (auto) 6.8 H Absolute Nucleated RBC 0.000 Nucleated RBC % 0.0 Sodium 131 L Potassium 4.6 Chloride 100 Carbon Dioxide 25 Anion Gap 6 BUN 15 D Creatinine 0.92 Estim Creat Clear Calc Not Reportable Estimated GFR > 60 Glucose 130 H POC Capillary Glucose Hemoglobin A1c Calcium 9.2 Total Bilirubin 0.6 AST 21 ALT 16 Alkaline Phosphatase 97 Total Protein 7.5 Albumin 4.0 Urine Color Urine Appearance Urine pH Ur Specific [place] Urine Protein Urine Glucose (UA) Urine Ketones Ur Blood (Man) Urine Nitrate Urine Bilirubin Urine Urobilinogen Leukocyte Esterase Rfl Discharge Plan Discharge Attending physician on discharge: Asuncion Bustos Consulting providers: Lorena Layton Discharging Clinician: Lorena Layton Anticipated Discharge Date/Time: 06/22/25 13:52 Patient Disposition: NH Usp/Asst Living Activity: as tolerated Diet: as tolerated and diabetic Discharge Instructions: Discharge disposition: Patient admitted to the hospital for inability to care for self requiring placement Continue to closely monitor patient's glucose levels with ACHS accucheck Continue diabetic diet Continue patients Trulicity weekly and metformin 500 mg BID as prescribed Changed patients Lantus prescription discontinue morning lantus dose of nightly lantus changed from 46 units to 10 units Strict bleeding precautions since you remain Xarelto including shaving with an electric razor, holding pressure for greater than 20 minutes for injury, protection of had with any falls, etc. Monitor blood pressures Take caution while standing, rising, or moving Change positions slowly taking a break between each position change If you standing feel dizzy sit back down and take a break Encouraged to continue with yearly vaccinations Return to the emergency department if he developed sudden shortness of breath, chest pain, nausea, vomiting, upset stomach or intractable diarrhea Return to the emergency department if you develop fever greater than 100.5 Follow-up with the primary care physician within 1-2 weeks Thank you for [facility] for your healthcare needs Patient Instructions: Antibiotic Form, Insulin Glargine (By injection), Don aroxaban (By mouth), Dulaglutide (By injection), Diabetes and Nutrition (DC) Patient Language: Polish Stand Alone Forms: General Discharge Information Follow-up/Referrals: Gurvinder Renteria MD [Primary Care Provider] - 1 Week Discharge Medications: Continued citalopram 40 mg Tablet 40 mg PO DAILY famotidine 40 mg Tablet 40 mg PO DAILY ropinirole 3 mg Tablet 3 mg PO HS primidone 250 mg Tablet 250 mg PO BID gabapentin 800 mg Tablet 800 mg PO TID Rx Instructions: takes at 09,1400,2100 lisinopril 30 mg Tablet 30 mg PO DAILY oxybutynin chloride 5 mg Tablet 5 mg PO HS meloxicam 15 mg tablet 15 mg PO DAILY Rx Instructions: Take with food if needed for pain metformin 500 mg Tablet 500 mg PO BID tolnaftate 1 % powder 1 applic topical Q12HR PRN (Reason: Rash) Rx Instructions: Apply to groin folds until clear then use as needed. docusate sodium 100 mg capsule 100 mg PO PRN PRN (Reason: Constipation) budesonide-formoterol [Symbicort] 160-4.5 mcg/actuation HFA aerosol inhaler 1 inh INHALATION DAILY PRN (Reason: Shortness Of Breath) Xarelto 20 mg Tablet 20 mg PO DAILY@1700 Qty: 60 0RF (DME) FreeStyle Fredi 3 [place] Misc See Rx Instructions .Route Qty: 1 0RF Rx Instructions: use to monitor blood sugars (DME) FreeStyle Fredi 3 Plus Sensor Device See Rx Instructions .Route Qty: 2 3RF Rx Instructions: change every 15 days Changed insulin glargine [Basaglar KwikPen U-100 Insulin] 100 unit/mL (3 mL) insulin pen 10 unit SUBCUT QHS Qty: 15 0RF Discontinued nortriptyline 25 mg Capsule 25 mg PO TID Rx Instructions: takes at 9,1400,2100 insulin glargine [Basaglar KwikPen U-100 Insulin] 100 unit/mL (3 mL) insulin p en 42 unit SUBCUT QAM metoprolol tartrate 50 mg Tablet 50 mg PO Q12HR Qty: 60 1RF Date of admission: 06/22/25 08:00 Primary Care Provider: Gurvinder Renteria Admitting Provider: Nilton Anderson Attending physician on admission: Nilton Anderson Condition: Stable Hospitalist MIPS Heart Failure (Exclusion) Patient has history of Heart Transplant or Left Ventricular Assistive Device?: No IF YES, STOP HERE Heart Failure (Qualifier) Patient has current or prior documentation of LVEF less than or equal to 40%, or mod/servere depressed LVSF?: No IF NO, STOP HERE
[2025-06-22] MEDS: RIVAROXABAN 20 MG TABLET PO (17:20)
== END 2025-06-22 19:54 ==
LOC: ANHED 17:09 → ANH3MED 21:17
PROVIDERS: Family Medicine; Nurse Practitioner Gerontology; Student in an Organized Health Care Education/Training Program; Admitting Provider Internal Medicine; Emergency Provider Emergency Medicine; PCP Family Medicine; Visit Provider Internal Medicine
DX: M54.32 Sciatica, left side (principal); R62.7 Adult failure to thrive; Z68.44 Body mass index [BMI] 60.0-69.9, adult; E66.01 Morbid (severe) obesity due to excess calories; I11.0 Hypertensive heart disease with heart failure; Z79.4 Long term (current) use of insulin; E11.40 Type 2 diabetes mellitus with diabetic neuropathy, unspecified; I50.9 Heart failure, unspecified; F41.8 Other specified anxiety disorders; I48.91 Unspecified atrial fibrillation; F31.9 Bipolar disorder, unspecified; E78.5 Hyperlipidemia, unspecified; J44.9 Chronic obstructive pulmonary disease, unspecified; F17.210 Nicotine dependence, cigarettes, uncomplicated; Z91.51 Personal history of suicidal behavior; G89.29 Other chronic pain
CPT/HCPCS: 36415; 71045; 80048; 80053; 81003; 82948; 83036; 85025; 93005; 94640; 99285; A9270; G0378; G0379; J1815

== ENCOUNTER 2025-08-29 11:59 | Emergency (ER) | payer OTHER, SELFPAY ==
--- NOTE | ~2025-08-29 | XR_ITS ---
EXAMINATION: XR chest 2V, 08/29/2025 10:50 CDT HISTORY: weakness COMPARISON: No comparisons available. Technique: 2 views obtained. Findings: Mild pulmonary venous congestion. No pneumothorax. Mild cardiomegaly. Mediastinal and hilar contours are within normal limits. Bony thorax no acute abnormality. Impression: Mild CHF Reviewed, dictated and finalized at location P. Impression: Mild CHF
--- NOTE | ~2025-08-29 | XR_ITS ---
EXAMINATION: XR abdomen/kub 1V, 08/29/2025 10:50 CDT HISTORY: constipation COMPARISON: No comparisons available. Technique: 3 view. Findings: Moderate fecal content, no dilated bowel loops No free air. No abnormal calcifications No acute osseous abnormality. Impression: 1. No acute abnormality. Reviewed, dictated and finalized at location P. Impression: 1. No acute abnormality.
[2025-08-29 11:59] VITALS: BP 129/56; PULSE 69; RESP 20; TEMP 36.6; O2SAT 96
--- NOTE | 2025-08-29 12:25 | ECG_ITS ---
Test Date: 2025-08-29 12:34:33 Measurements Intervals [place] Rate: 70 P: 50 MO: 211 QRS: -11 QRSD: 102 T: 75 QT: 404 QTc: 437 Interpretive Statements SINUS RHYTHM WITH FIRST DEGREE AV BLOCK CANNOT R/O SEPTAL INFARCT, AGE INDETERMINATE BORDERLINE ST-T WAVE ABNORMALITY- HIGH LATERAL LEADS BASELINE ARTIFACT- I, AVR, AVL ABNORMAL ECG Compared to ECG 06/21/2025 15:33:17 First degree AV block now present Electronically Signed On 08-29-2025 15:35:20 CDT by Wellington Baker D.O.
--- NOTE | 2025-08-29 13:02 | ED.GENADULT ---
HPI - General Adult General Chief complaint: Weakness Stated complaint: lethargy Time Seen by Provider: 08/29/25 12:35 History of Present Illness HPI narrative: Patient is a 65-year-old female who presents ER with feeling a bit loopy. Reports she has been more forgetful today and thought there is a activity going on her nursing facility but there really was not. She reports she has been constipated for the last week. She is passing gas. No urinary frequency urgency or dysuria. No fevers or chills or sweats. No loss of consciousness. She has been compliant with home medication. She is on antibiotics currently for cellulitis of the right lower extremity. She is a care home because she cannot care for herself. Related Data Home Medications ?Medication ?Instructions ?Recorded ?Confirmed ?Last Taken ?Type citalopram 40 mg tablet 40 mg PO DAILY 08/09/23 06/21/25 12/13/24 History famotidine 40 mg tablet 40 mg PO DAILY 08/09/23 06/21/25 12/13/24 History gabapentin 800 mg tablet 800 mg PO TID 08/09/23 06/21/25 12/13/24 History lisinopril 30 mg tablet 30 mg PO DAILY 08/09/23 06/21/25 12/13/24 History oxybutynin chloride 5 mg tablet 5 mg PO HS 08/09/23 06/21/25 12/13/24 History primidone 250 mg tablet 250 mg PO BID 08/09/23 06/21/25 12/13/24 History ropinirole 3 mg tablet 3 mg PO HS 08/09/23 06/21/25 12/13/24 History metformin 500 mg tablet 500 mg PO BID 12/15/23 06/21/25 12/13/24 History tolnaftate 1 % topical powder 1 applic topical Q12HR PRN Rash 12/15/23 06/21/25 12/13/24 History budesonide-formoterol HFA 160 1 inh inhalation DAILY PRN 03/10/24 06/21/25 12/13/24 History mcg-4.5 mcg/actuation aerosol Shortness Of Breath inhaler (Symbicort) docusate sodium 100 mg capsule 100 mg PO PRN PRN Constipation 03/10/24 06/21/25 12/13/24 History meloxicam 15 mg tablet 15 mg PO DAILY pain (scale score 06/21/25 06/21/25 Unknown History 4-6) Allergies Allergy/AdvReac Type Severity Reaction Status Date / Time morphine Allergy Severe Swelling Verified 08/29/25 12:05 of Lip/Tongue/Throat Review of Systems Review of Systems: All systems reviewed & are unremarkable except as noted in HPI and below Constitutional: Constitutional: Reports no additional constitutional complaints ENT: Reports system reviewed and no additional complaints, except as documented Cardiovascular: Cardiovascular: Reports no additional cardiovascular complaints Respiratory: Respiratory: Reports no additional respiratory complaints Gastrointestinal: Gastrointestinal: Reports no additional gastrointestinal complaints [facility] Past Medical History Medical History (Updated 08/29/25 @ 15:20 by Kirill Lundy MD) Bedbound Restless leg syndrome Neuropathy Asthma Heart failure Anxiety and depression Suicide attempt x3, last attempt in Bipolar disorder Arthritis HLD (hyperlipidemia) Migraine COPD (chronic obstructive pulmonary disease) Hypertension Atrial fibrillation with RVR Tobacco abuse Degenerative joint disease of knee Diabetes mellitus with hyperglycemia Morbid obesity with BMI of 60.0-69.9, adult Cellulitis of groin necrotizing fasciitis Frequent falls MINA (acute kidney injury) Cellulitis E2006 Surgical History Surgical History 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 History of cholecystectomy History of heart artery stent Family History Family History Father Acute myocardial infarction Hypertension Grandparent Chronic obstructive pulmonary disease Diabetes mellitus Mother Congestive heart failure Diabetes mellitus Hypertension Other Leukemia Social History Social History Smoking packs per day: 0.5 Smoking cigarettes per day: 10.0 Years smoked: 47 Smoking pack-years: 23.50 Smoking status: Current every day smoker Tobacco type: cigarettes Second hand tobacco smoke exposure: Yes Alcohol intake: current Drinks per week: 1 Substance use: current Substance use type: marijuana Other substance usage details: alcohol couple times/year, currently uses CBD gummies and smokes marijuana Do You Feel Safe in your Home?: Yes Lack of Transportation: No Lack of Food: Sometimes True Current Housing: I Have Housing Concerned About Future Housing: No Difficulty Paying Gas/Electric Bills: YES Difficulty Paying for Meds: YES Currently Unemployed: No Education: High School Diploma/GED Difficulty w/ Childcare or Family Care: No Spiritual care concerns: No Exam Narrative: GENERAL: Well-appearing, morbidly obese, and in no acute distress. HEAD: Normocephalic, atraumatic. ENT: Mucous membranes moist. CHEST: Clear to auscultation. No respiratory distress. HEART: Regular rate and rhythm. Normal peripheral pulses. ABDOMEN: Soft, nontender, nondistended. EXTREMITIES: Normal range of motion. No edema. SKIN: Warm, dry, no rash. NEURO: Alert and oriented x3. PSYCH: Normal mood and affect. Course Course Emergency Course: Unremarkable evaluation. No respiratory issues or hypoxia or abnormal lung sounds. Appropriate for discharge back to her facility. Will give her a stool softener for her reported constipation. Vital Signs Vital signs: Vital Signs Temperature 97.8 F 08/29/25 11:59 Pulse Rate 69 08/29/25 11:59 Respiratory Rate 20 08/29/25 11:59 Blood Pressure 129/56 L 08/29/25 11:59 Pulse Oximetry 96 08/29/25 11:59 Oxygen Delivery Room Air 08/29/25 11:59 Temperature 97.8 F 08/29/25 11:59 Pulse Rate 78 08/29/25 15:05 Respiratory Rate 18 08/29/25 15:05 Blood Pressure 132/86 08/29/25 15:05 Pulse Oximetry 98 08/29/25 15:05 Oxygen Delivery Room Air 08/29/25 11:59 Medical Decision Making Vital Signs Vital Signs: Vital Signs Temperature 97.8 F 08/29/25 11:59 Pulse Rate 69 08/29/25 11:59 Respiratory Rate 20 08/29/25 11:59 Blood Pressure 129/56 L 08/29/25 11:59 Pulse Oximetry 96 08/29/25 11:59 Oxygen Delivery Room Air 08/29/25 11:59 Temperature 97.8 F 08/29/25 11:59 Pulse Rate 78 08/29/25 15:05 Respiratory Rate 18 08/29/25 15:05 Blood Pressure 132/86 08/29/25 15:05 Pulse Oximetry 98 08/29/25 15:05 Oxygen Delivery Room Air 08/29/25 11:59 Lab Data 08/29/25 13:09 08/29/25 13:09 Labs: Lab Results 08/29/25 08/29/25 Range/Units 13:09 13:37 WBC 9.7 (4.5-10.0) K/mm3 RBC 5.43 H (4.2-5.4) M/mm3 Hgb 15.9 H (12.0-15.0) g/dL Hct 48.4 H (37.0-47.0) % MCV 89.1 (80-100) fl MCH 29.3 (26-34) pg MCHC 32.9 (32-36) g/dl RDW 16.2 H (11.5-14.5) % Plt Count 304 (150-375) k/mm3 MPV 9.8 (7.4-10.4) fl Immature Gran % (Auto) 0.5 (0-0.5) % Neut % (Auto) 60.0 (45.5-73.1) % Lymph % (Auto) 32.0 (18.3-44.2) % [place] % (Auto) 5.5 (2.6-8.5) % Eos % (Auto) 1.5 (0-4.4) % Baso % (Auto) 0.5 (0.2-1.2) % Lymph # (Auto) 3.11 (0.9-3.2) K/mm3 [place] # (Auto) 0.5 (0.1-0.6) K/mm3 Eos # (Auto) 0.2 (0-0.3) K/mm3 Baso # (Auto) 0.1 (0.0-0.1) K/mm3 Abs Immat Gran (auto) 0.05 H (0.00-0.031) K/mm3 Absolute Neuts (auto) 5.8 (1.3-6.7) K/mm3 Absolute Nucleated RBC 0.000 (0.0-0.012) K/mm3 Nucleated RBC % 0.0 (0.0-0.2) % Sodium 138 (137-145) mmol/L Potassium 4.6 (3.4-5.0) mmol/L Chloride 103 (98-107) mmol/L Carbon Dioxide 28 (22-30) mmol/L Anion Gap 7 (4-12) mmol/L BUN 27 H D (7-17) mg/dL Creatinine 1.02 H (0.7-1.0) mg/dL Estim Creat Clear Calc 75 ml/min Estimated GFR 55 L (59 - ) Glucose 98 (65-110) mg/dL Calcium 9.0 (8.4-10.2) mg/dL Total Bilirubin 0.5 (0.2-1.3) mg/dL AST 31 (14-36) U/L ALT 17 (6-35) U/L Alkaline Phosphatase 76 (38-126) U/L Total Protein 7.3 (6.3-8.2) g/dL Albumin 3.9 (3.5-5.1) g/dL Urine Color Yellow (Yellow) Urine Appearance Clear (Clear) Urine pH 5.5 (5.0-9.0) Ur Specific [place] 1.011 (1.001-1.035) Urine Protein Negative (Negative) mg/dL Urine Glucose (UA) Trace H (Negative) mg/dL Urine Ketones Negative (Negative) mg/dL Ur Blood (Man) Negative (Negative) Urine Nitrate Negative (Negative) Urine Bilirubin Negative (Negative) Urine Urobilinogen 0.2 (<2.0) mg/dL Leukocyte Esterase Rfl Negative (Negative) RALPH/UL Imaging Data Radiologist's impression: ITS Impressions Chest X-Ray 08/29/25 14:02 Impression: Mild CHF Abdomen X-Ray 08/29/25 14:12 Impression: 1. No acute abnormality. ECG Data EKG #1: ECG completion date: 08/29/25 ECG completion time: 12:34 EKG Interpretation: normal rate (70), sinus rhythm, no ectopy, non-specific ST changes, normal QRS and normal QT Discharge Plan Discharge Clinical Impression: Constipation Patient Disposition: Home Condition: Stable Instructions: Constipation (ED) Additional Instructions: Return to the emergency department if you develop severe abdominal pain, severe nausea and vomiting to the point where you are unable to keep down fluids, if you develop chest pain or difficulty breathing, blood in your stool, dizziness or fainting, or if you develop any other new or concerning symptoms as these could be signs of more serious medical illness. Try to stay well hydrated. Patient Language: Liberian Prescriptions: New polyethylene glycol 3350 [Miralax] 17 gram/dose powder 17 g PO BID Qty: 238 0RF Rx Instructions: Use 2 times a day until you have a bowel movement. Then take as needed. No Action citalopram 40 mg Tablet 40 mg PO DAILY famotidine 40 mg Tablet 40 mg PO DAILY ropinirole 3 mg Tablet 3 mg PO HS primidone 250 mg Tablet 250 mg PO BID gabapentin 800 mg Tablet 800 mg PO TID Rx Instructions: takes at 09,1400,2100 lisinopril 30 mg Tablet 30 mg PO DAILY oxybutynin chloride 5 mg Tablet 5 mg PO HS meloxicam 15 mg tablet 15 mg PO DAILY Rx Instructions: Take with food if needed for pain insulin glargine [Basaglar KwikPen U-100 Insulin] 100 unit/mL (3 mL) insulin pen 10 unit SUBCUT QHS Qty: 15 0RF metformin 500 mg Tablet 500 mg PO BID tolnaftate 1 % powder 1 applic topical Q12HR PRN (Reason: Rash) Rx Instructions: Apply to groin folds until clear then use as needed. docusate sodium 100 mg capsule 100 mg PO PRN PRN (Reason: Constipation) budesonide-formoterol [Symbicort] 160-4.5 mcg/actuation HFA aerosol inhaler 1 inh INHALATION DAILY PRN (Reason: Shortness Of Breath) Xarelto 20 mg Tablet 20 mg PO DAILY@1700 Qty: 60 0RF (DME) FreeStyle Fredi 3 [place] Misc See Rx Instructions .Route Qty: 1 0RF Rx Instructions: use to monitor blood sugars (DME) FreeStyle Fredi 3 Plus Sensor Device See Rx Instructions .Route Qty: 2 3RF Rx Instructions: change every 15 days Follow-up/Referrals: Gurvinder Renteria MD [Primary Care Provider, Family Practice] - 1 Week
[2025-08-29 13:15] LABS: Hematocrit 48.4 % (37.0-47.0); Hemoglobin 15.9 g/dL (12.0-15.0); Immature Granulocyte Percent A 0.5 % (0-0.5); Lymphocytes Absolute Auto 3.11 K/mm3 (0.9-3.2); Mean Corpuscular HGB Conc 32.9 g/dl (32-36); Mean Corpuscular Hemoglobin 29.3 pg (26-34); Mean Corpuscular Volume 89.1 fl (80-100); Nucleated Red Blood Cells Absolute Auto 0.000 K/mm3 (0.0-0.012); Nucleated Red Blood Cells Perc 0.0 % (0.0-0.2); Platelet Count Result 304 k/mm3 (150-375); Red Blood Count 5.43 M/mm3 (4.2-5.4); White Blood Count 9.7 K/mm3 (4.5-10.0)
[2025-08-29 13:41] LABS: Alanine Aminotransferase 17 U/L (6-35); Albumin Level 3.9 g/dL (3.5-5.1); Alkaline Phosphatase 76 U/L (38-126); Anion Gap 7 mmol/L (4-12); Aspartate Amino Transferase 31 U/L (14-36); Bilirubin,Total 0.5 mg/dL (0.2-1.3); Blood Urea Nitrogen 27 mg/dL (7-17); Calcium 9.0 mg/dL (8.4-10.2); Carbon Dioxide 28 mmol/L (22-30); Chloride 103 mmol/L (98-107); Estimated CRCL calculation 75 ml/min; Estimated Glomerular Filt Rate 55; Glucose 98 mg/dL (65-110); Potassium 4.6 mmol/L (3.4-5.0); Sodium 138 mmol/L (137-145); Total Protein 7.3 g/dL (6.3-8.2)
[2025-08-29 13:51] LABS: Add Urine Microscopic? NO; Appearance Urine Clear (Clear); Glucose Urine UA Trace mg/dL (Negative); Leukocyte Esterase Ur Negative LEU/UL (Negative); Nitrate Urine Negative (Negative); Specific Grav Ur 1.011 (1.001-1.035)
--- OUTSIDE RECORDS SUMMARY | 2025-08-29 14:32 | XMS_ITS | Encounter Summary ---
Author Organization [facility] Address [address] [place] [address] Care Team Providers Care Medical Claims Assistant Name Role Phone Unavailable Primary Care Provider Unavailabl e Encounter Details Date Type Department Care Team (Late st Contact Info) Description 07/12/2021 Lab Requisition [facility] [id number] [place] [address] [place] [id number] [place] [address] Social History Tobacco Use Types [...] - 145 mmol/L 07/12/2021 11:37 AM CDT [facility] - [facility] POTASSIUM 4.2 3.4 - 5.1 mmol/L 07/[facility]2021 [facility] 98 - 107 mmol/L 07/12/2021 11:37 AM [facility] CO2 22 22 - 29 mmol/L 07/12/2021 11:37 AM [facility] CALCIUM 9.3 8.6 - 10.4 mg/dL 07/12/2021 11:37 AM [facility] BUN 20 6 - 20 mg/dL 07/12/2021 11:37 AM [facility] CREATININE 1.26(H) 0.51 - 0.95 mg/dL 07/12/2021 11:37 AM [facility] GLUCOSE 121(H) 74 - 99 mg/dL 07/12/2021 11:37 AM [facility] TOTAL PROTEIN 6.9 6.3 - 8.7 g/dL 07/12/2021 11:37 AM [facility] ALBUMIN 3.3(L) 3.5 - 5.2 g/dL 07/12/2021 11:37 AM [facility] BILIRUBIN TOTAL 0.2 0.2 - 1.1 mg/dL 07/12/2021 11:37 AM [facility] ALKALINE PHOSPHATASE 101 40 - 150 U/L 07/12/2021 11:37 AM [facility] AST 17 0 - 33 U/L 07/12/2021 11:37 AM [facility] ALT 12 0 - 33 U/L 07/12/2021 11:37 AM [facility] GFR 43 mL/min/1.7 3 sq meter 07/12/2021 11:37 AM [facility] Comment: eGFR [...] 3 sq meter 07/12/2021 11:37 AM CDT [facility] ANION GAP 14 8 - 16 mmol/L 07/12/2021 11:37 AM CDT [facility] Blood Collection / Unknown 07/12/2021 5:00 AM CDT 07/12/2021 11:05 AM CDT us Nargis Guy MD CHEMISTRY ORDERABLES Final Resul t [facility] [employer] [facility] CLIA# [id number] [place] [address] documented in this encounter Visit Diagnoses Not on filedocumented in this encounter
--- OUTSIDE RECORDS SUMMARY | 2025-08-29 14:32 | XMS_ITS | Encounter Summary ---
Author Organization [facility] Address [address] [place] [address] Care Team Providers Care Conditioning Coach Name Role Phone Unavailable Primary Care Provider Unavailabl e Encounter Details Date Type Department Care Team (Late st Contact Info) Description 07/02/2021 Lab Requisition [facility] Services [address] [place] [address] [place] [address] [place] [address] Social History Tobacco Use Types [...] RATE (07/02/2021 4:10 AM CDT) Pathologist [facility] ESR (SEDIMENTATION RATE) 59(H) 0 - 30 mm/Hr 07/02/2021 9:26 AM CDT [facility] Blood Collection / Unknown 07/02/2021 4:10 AM CDT 07/02/2021 5:57 AM CDT Nargis Guy MD HEMATOLOGY ORDERABLES Final Resu lt Performing Organization Address City/[facility]/ZIP Co de Phone Number [facility] CLIA# [id number] [place] [address] * RETICULOCYTES (07/02/2021 4:10 AM CDT) Pathologist [facility] RETICULOCYTES 2.0 0.4 - 2.0 % 07/02/2021 6:49 AM CDT [facility] IMMATURE RETIC FRACTION 0.5 % 07/02/2021 6:49 AM CDT [facility] RETICULOCYTE, ABSOLUTE 0.0681 0.0250 - 0.1480 10e6/uL 07/02/2021 6:49 AM CDT [facility] Blood Collection / Unknown 07/02/2021 4:10 AM CDT 07/02/2021 5:57 AM CDT Nargis Guy MD HEMATOLOGY ORDERABLES Final Resu lt Performing Organization Address City/[facility]/ZIP Co de Phone Number [facility] CLIA# [id number] [place] [address] * (ABNORMAL) PREALBUMIN (07/02/2021 4:10 AM CDT) PREALBUMIN 17(L) 20 - 40 mg/dL 07/02/2021 2:25 PM CDT [facility] Blood Collection / Unknown 07/02/2021 4:10 AM CDT 07/02/2021 5:57 AM CDT Nargis Guy MD CHEMISTRY ORDERABLES Final Resul t [facility] CLIA# [id number] [address] [place] [address] * (ABNORMAL) IRON, TIBC, AND PERCENT SATURATION (07/02/2021 4:10 AM CDT) IRON 36(L) 37 - 145 ug/dL 07/02/2021 7:20 AM CDT [facility] TIBC 161(L) 265 - 497 ug/dL 07/02/2021 7:20 AM CDT [facility] IRON % SATURATION 22 20 - 55 % 07/02/2021 7:20 AM CDT [facility] Blood Collection / Unknown 07/02/2021 4:10 AM CDT 07/02/2021 5:57 AM CDT Nargis Guy MD CHEMISTRY ORDERABLES Final Resul t [facility] CLIA# [id number] [place] [address] * (ABNORMAL) C-REACTIVE PROTEIN (07/02/2021 4:10 AM CDT) CRP 27.4(H) <5.0 mg/L 07/02/2021 7:20 AM CDT [facility] Blood Collection / Unknown 07/02/2021 4:10 AM CDT 07/02/2021 5:57 AM CDT Nargis Guy MD CHEMISTRY ORDERABLES Final Resul t [facility] CLIA# [id number] [address] [place] [address] * (ABNORMAL) CBC WITH DIFFERENTIAL (07/02/2021 4:10 AM CDT) [facility] WBC 6.5 4.5 - 10.5 K/uL 07/02/2021 6:49 AM CDT [facility] RBC 3.48(L) 3.90 - 4.90 M/uL 07/02/2021 6:49 AM CDT [facility] HEMOGLOBIN 9.5(L) 11.8 - 14.8 g/dL 07/02/2021 6:49 AM CDT [facility] HEMATOCRIT 29.3(L) 35.5 - 44.0 % 07/02/2021 6:49 AM CDT [facility] MCV 84.1 82.0 - 99.0 fL 07/02/2021 6:49 AM CDT [facility] MCH 27.2(L) 27.8 - 34.5 pg 07/02/2021 6:49 AM CDT [facility] MCHC 32.3(L) 32.5 - 35.5 g/dL 07/02/2021 6:49 AM CDT [facility] RDW 15.8(H) 11.5 - 14.5 % 07/02/2021 6:49 AM CDT [facility] PLATELETS 386 160 - 420 K/uL 07/02/2021 6:49 AM CDT [facility] MPV 7.3(L) 8.7 - 12.7 fL 07/02/2021 6:49 AM CDT [facility] NEUTROPHILS 51 % 07/02/2021 6:49 AM CDT [facility] LYMPHOCYTES 36 % 07/02/2021 6:49 AM CDT [facility] SERVICES [facility] MONOCYTES 7 % 07/02/2021 6:49 AM CDT [facility] SERVICES [facility] EOSINOPHILS 5 % 07/02/2021 6:49 AM CDT [facility] SERVICES [facility] BASOPHILS 1 % 07/02/2021 6:49 AM CDT [facility] SERVICES [facility] NEUTROPHIL ABSOLUTE 3.30 1.90 - 7.00 K/uL 07/02/2021 6:49 AM CDT [facility] SERVICES [facility] LYMPHOCYTE ABSOLUTE 2.30 0.70 - 4.50 K/uL 07/02/2021 6:49 AM CDT [facility] SERVICES [facility] MONOCYTE ABSOLUTE 0.50 0.10 - 1.30 K/uL 07/02/2021 6:49 AM CDT [facility] SERVICES [facility] EOSINOPHIL ABSOLUTE 0.30 0.00 - 0.70 K/uL 07/02/2021 6:49 AM CDT [facility] SERVICES [facility] BASOPHILS ABSOLUTE 0.10 0.00 - 0.20 K/uL 07/02/2021 6:49 AM CDT [facility] SERVICES [facility] Blood Collection / Unknown 07/02/2021 4:10 AM CDT 07/02/2021 5:57 AM CDT us Nargis Guy MD HEMATOLOGY ORDERABLES Final Resu lt [facility] CLIA# [id number] [place] [address] * (ABNORMAL) COMPREHENSIVE METABOLIC PANEL (07/02/2021 4:10 AM CDT) SODIUM 139 136 - 145 mmol/L 07/02/2021 7:20 AM CDT [facility] POTASSIUM 4.5 3.4 - 5.1 mmol/L 07/02/2021 7:20 AM CDT [facility] CHLORIDE 104 98 - 107 mmol/L 07/02/2021 [...] 3 sq meter 07/02/2021 7:20 AM CDT [facility] ANION GAP 11 8 - 16 mmol/L 07/02/2021 7:20 AM CDT [facility] Blood Collection / Unknown 07/02/2021 4:10 AM CDT 07/02/2021 5:57 AM CDT us Nargis Guy MD CHEMISTRY ORDERABLES Final Resul t [facility] CLIA# [id number] [id number] [place] [address] documented in this encounter Visit Diagnoses Not on filedocumented in this encounter
--- OUTSIDE RECORDS SUMMARY | 2025-08-29 14:32 | XMS_ITS | Encounter Summary ---
Author Organization [facility] Address [address] [place] [address] Care Team Providers Care Warehouse Distribution Associate Name Role Phone Karime Aguilera RN, Haresh K MD Primary Care Provider [phone] Reason for Visit * Reason Onset Date Comments Request Lab Order 09/10/2023 Imaging 09/10/2023 Encounter Details Date Type Department Care Team (Late st Contact Info) Description 09/10/2023 Telephone [facility] - AIRCRAFT MAINTENANCE INSTRUCTOR [address] [place] [address] Christy Khan MD [address] [facility] [address] [place] [address] Request Lab Order; Imaging Social [...] needs screening mammogram ordered and sent to [facility]. RN ordered and faxed to [phone] RN scheduled pt for WWE 10/14/2023 9:15 AM Christy Khan MD Pt accepts appt * Telephone Encounter - Nataliia Bangura - 09/10/2023 10:05 AM CDT Pt wants Mammogram order sent to [facility] [place], [place]. documented in this encounter Plan of Treatment Upcoming Encounters Date Type Department Care Team (Late st Contact Info) Description 09/06/2025 11:30 AM CDT Office Visit [facility] - AIRCRAFT MAINTENANCE INSTRUCTOR [address] [address] [place] [address] Christy Khan MD [address] [facility] [address] [place] [address] documented as of this encounter Visit Diagnoses Diagnosis Encounter for screening mammogram for malignant neoplasm of breast- Primary Other screening mammogram documented in this encounter Care Teams Warehouse Distribution Associate Relationship Specialty Start Date End Date Gurvinder Renteria MD [address] [facility] [address] [place] [address] PCP - General 01/01/22 Karime Aguilera, RN 05/07/18 documented as of this encounter
--- OUTSIDE RECORDS SUMMARY | 2025-08-29 14:32 | XMS_ITS | Encounter Summary ---
Author Organization [facility] Address [address] [place] [address] Care Team Providers Care Railroad Auditor Name Role Phone Karime Aguilera RN, Haresh K MD Primary Care Provider [phone] Reason for Visit * Reason Onset Date Comments Question 01/18/2025 Encounter Details Date Type Department Care Team (Late st Contact Info) Description 01/18/2025 Telephone [facility] - MANAGER UNDERWRITING [address], [facility] [address] [place] [address] Christy Khan MD [address] [facility] [address] [place] [address] Question Social History Tobacco Use [...] message asking her to return our call. DELIVERY DRIVER * Telephone Encounter - Cristal Myers - 01/18/2025 12:48 PM CST [facility] nurse calling giving a report on patient from her visit today.. she is having burning with urination at least 10 + times daily.. pt was unable to give a specimen while she was there.. and was informed to call the office CB# [phone] DELIVERY DRIVER documented in this encounter Plan of Treatment Upcoming Encounters Date Type Department Care Team (Late st Contact Info) Description 09/06/2025 11:30 AM CDT Office Visit [facility] - MANAGER UNDERWRITING [address] [facility] [address] [place] [address] Christy Khan MD [address] [facility] [address] [place], [place] [id number] documented as of this encounter Visit Diagnoses Not on filedocumented in this encounter Care Teams Railroad Auditor Relationship Specialty Start Date End Date Gurvinder Renteria MD [address] [facility] [address] [place] [address] PCP - General 01/01/22 Karime Aguilera, RN 05/07/18 documented as of this encounter
--- OUTSIDE RECORDS SUMMARY | 2025-08-29 14:32 | XMS_ITS | Encounter Summary ---
Author Organization [facility] Address [address] [place] [address] Care Team Providers Care Patient Support Representative Name Role Phone Unavailable Primary Care Provider Unavailabl e Encounter Details Date Type Department Care Team (Late st Contact Info) Description 07/19/2021 Lab Requisition [facility] Laboratory Services [address] [place] [address] [place] [address] [place] [address] Social History Tobacco Use Types [...] - 10.5 K/uL 07/19/2021 11:50 AM CDT [facility]OR[facility] RBC 3.66(L) 3.90 - 4.90 M/uL 07/19/2021 11:50 AM CDT [facility] HEMOGLOBIN 9.6(L) 11.8 - 14.8 g/dL 07/19/2021 11:50 AM CDT [facility] LABORATORY SERVICES [facility] HEMATOCRIT 30.5(L) 35.5 - 44.0 % 07/19/2021 11:50 AM CDT [facility] LABORATORY SERVICES [facility] MCV 83.5 82.0 - 99.0 fL 07/19/2021 11:50 AM CDT [facility] LABORATORY SERVICES [facility] MCH 26.4(L) 27.8 - 34.5 pg 07/19/2021 11:50 AM CDT [facility] LABORATORY SERVICES [facility] MCHC 31.6(L) 32.5 - 35.5 g/dL 07/19/2021 11:50 AM CDT [facility] RDW 15.6(H) 11.5 - 14.5 % 07/19/2021 11:50 AM CDT [facility] LABORATORY SERVICES [facility] PLATELETS 383 160 - 420 K/uL 07/19/2021 11:50 AM CDT [facility] LABORATORY SERVICES [facility] MPV 8.0(L) 8.7 - 12.7 fL 07/19/2021 11:50 AM CDT [facility] LABORATORY SERVICES [facility] NEUTROPHILS 52 % 07/19/2021 11:50 AM CDT [facility] LABORATORY SERVICES [facility] LYMPHOCYTES 36 % 07/19/2021 11:50 AM CDT [facility] LABORATORY SERVICES [facility] MONOCYTES 6 % 07/19/2021 11:50 AM CDT [facility] LABORATORY SERVICES [facility] EOSINOPHILS 5 % 07/19/2021 11:50 AM CDT [facility] LABORATORY SERVICES [facility] BASOPHILS 1 % 07/19/2021 11:50 AM CDT [facility] LABORATORY SERVICES [facility] NEUTROPHIL ABSOLUTE 3.80 1.90 - 7.00 K/uL 07/19/2021 11:50 AM CDT [facility] LABORATORY SERVICES [facility] LYMPHOCYTE ABSOLUTE 2.70 0.70 - 4.50 K/uL 07/19/2021 11:50 AM CDT [facility] LABORATORY [facility] MONOCYTE ABSOLUTE 0.50 0.10 - 1.30 K/uL 07/19/2021 11:50 AM CDT [facility] LABORATORY SERVICES [facility] EOSINOPHIL ABSOLUTE 0.30 0.00 - 0.70 K/uL 07/19/2021 11:50 AM CDT [facility] LABORATORY SERVICES [facility] BASOPHILS ABSOLUTE 0.10 0.00 - 0.20 K/uL 07/19/2021 11:50 AM CDT [facility]ATORY [facility] Blood Collection / Unknown 07/19/2021 3:23 AM CDT 07/19/2021 11:47 AM CDT Nargis Guy MD HEMATOLOGY ORDERABLES Final Resu lt [facility] CLIA# [id number] [address] [place] [address] * (ABNORMAL) COMPREHENSIVE METABOLIC PANEL (07/19/2021 3:23 AM CDT) SODIUM 138 136 - 145 mmol/L 07/19/2021 12:19 PM CDT [facility] POTASSIUM 4.4 3.4 - 5.1 mmol/L 07/19/2021 12:19 PM CDT [facility] LABORATORY [facility] CHLORIDE 101 98 - 107 mmol/L 07/19/2021 12:19 PM CDT [facility] LABORATORY [facility] CO2 24 22 - 29 mmol/L 07/19/2021 12:19 PM CDT [facility] LABORATORY [facility] CALCIUM 9.2 8.6 - 10.4 mg/dL 07/19/2021 12:19 PM CDT [facility] LABORATORY [facility] BUN 18 6 - 20 mg/dL 07/19/2021 12:19 PM CDT [facility] LABORATORY [facility] CREATININE 0.98(H) 0.51 - 0.95 mg/dL 07/19/2021 12:19 PM CDT [facility] LABORATORY [facility] GLUCOSE 102(H) 74 - 99 mg/dL 07/19/2021 12:19 PM CDT [facility] TOTAL PROTEIN 6.5 6.3 - 8.7 g/dL 07/19/2021 12:19 PM T [facility] ALBUMIN 3.1(L) 3.5 - 5.2 g/dL 07/19/2021 12:19 PM [facility] BILIRUBIN TOTAL <0.2(L) 0.2 - 1.1 mg/dL 07/19/2021 12:19 PM [facility] ALKALINE PHOSPHATASE 96 40 - 150 U/L 07/19/2021 12:19 PM [facility] AST 12 0 - 33 U/L 07/19/2021 12:19 PM [facility] ALT 8 0 - 33 U/L 07/19/2021 12:19 PM [facility] GFR 58 mL/min/1.7 3 sq meter 07/19/2021 12:19 PM [facility] Comment: eGFR has not been validated for [...] 3 sq meter 07/19/2021 12:19 PM CDT [facility] ANION GAP 13 8 - 16 mmol/L 07/19/2021 12:19 PM T [facility] Blood Collection / Unknown 07/19/2021 3:23 AM CDT 07/19/2021 11:48 AM CDT us Nargis Guy MD CHEMISTRY ORDERABLES Final Resul t [facility] CLIA# [id number] [place] [address] documented in this encounter Visit Diagnoses Not on filedocumented in this encounter
--- OUTSIDE RECORDS SUMMARY | 2025-08-29 14:32 | XMS_ITS | Encounter Summary ---
Author Organization [facility] Address [address] [place] [address] Care Team Providers Care Material Engineer Name Role Phone Unavailable Primary Care Provider Unavailabl e Encounter Details Date Type Department Care Team (Late st Contact Info) Description 06/20/2021 Lab Requisition [facility] Laboratory Services [address] [place] [phone] Social History Tobacco Use Types Packs/Day Years [...]
--- OUTSIDE RECORDS SUMMARY | 2025-08-29 14:32 | XMS_ITS | Clinical Summary ---
Author Organization [facility] Address [address] [place] [address] Care Team Providers Care Operations Section Manager Name Role Phone Unavailable Primary Care [...] meter) OneTouch Verio Flex Meter Active Insulin Brady, Disposable, (TRUEplus Pen Needle) 31 gauge x [...] failure 05/19/2021 Severe sepsis without septic shock Encounters Date Type Department Care Team Description 08/11/2025 External Device Data [facility] ABSTRACTION Provider, Abstract 08/11/2025 External Device Data [facility] ABSTRACTION Provider, Abstract from Last 3 Months Social History Tobacco Use Types Packs/Day Years [...] 6.2(H) <=5.6 % 07/13/2021 10:36 AM CDT [facility] EST. AVG GLUCOSE, A1C 131 mg/dL 07/13/2021 10:36 AM CDT [facility] Blood Collection / Unknown 07/13/2021 6:30 AM CDT 07/13/2021 10:06 AM CDT Narrative [facility] LABORATORY SERVICES [facility] - 07/13/2021 10:36 AM CDT HGB A1C INTERPRETATION NORMAL: <5.7% PRE-DIABETES: 5.7 - 6.4% DIABETES: 6.5% OR GREATER Nargis Guy MD CHEMISTRY ORDERABLES Final Resul t [facility] LABORATORY SERVICES [facility] CLIA# [id number] [place] [address] from Last 3 Months or Most Recently Relevant to Health Maintenance Insurance [facility] MEDICAID RX [employer] Medicare Part [place] [address] Advance Directives For more information, please contact: [phone] * Full Code (Latest Code Status on File) Date Activated Date Inactivated Comments 05/19/2021 12:52 PM 05/26/2021 12:57 AM
--- OUTSIDE RECORDS SUMMARY | 2025-08-29 14:32 | XMS_ITS | Encounter Summary ---
Author Organization [facility] Address [address] [place] [address] Care Team Providers Care Outdoor Power Equipment Mechanic Name Role Phone Karime Aguilera RN, Haresh K MD Primary Care Provider Reason for Visit * Reason Onset Date Comments Question 10/29/2023 Encounter Details Date Type Department Care Team (Late st Contact Info) Description 10/29/2023 Telephone [facility] - ACOUSTIC INTELLIGENCE SPECIALIST [address] [facility] [address] [place] [address] Christy Khan MD [address] [facility] [address] [place] [address] Question Social History Tobacco Use [...] Yesenia Shin RN - 10/29/2023 1:16 PM COAGULATING BATH MIXER RN returned pt call & gathered further [...] pt's provider MD Alonso of above issues. ULATING BATH MIXER * Telephone Encounter - Ferny Pierre - 10/29/2023 12:40 PM CST Patient called stating she has a potential yeast infection and wanted to see about getting a prescription. Offered patient an appt, she preferred Dr Khan, put her down for next available on 11/26. ULATING BATH MIXER documented in this encounter Plan of Treatment Upcoming Encounters Date Type Department Care Team (Late st Contact Info) Description 09/06/2025 11:30 AM CDT Office Visit [facility] - ACOUSTIC INTELLIGENCE SPECIALIST [address] [facility] [address] [place] [address] Christy Khan MD [address] [facility] [address] [place] [address] documented as of this encounter Visit Diagnoses Not on filedocumented in this encounter Care Teams Outdoor Power Equipment Mechanic Relationship Specialty Start Date End Date Gurvinder Renteria MD [address] [place] [address] PCP - General 01/01/22 Karime Aguilera, RN 05/07/18 documented as of this encounter
--- OUTSIDE RECORDS SUMMARY | 2025-08-29 14:32 | XMS_ITS | Encounter Summary ---
Author Organization [facility] Address [address] [place] [address] Care Team Providers Care Marketing Production Coordinator Name Role Phone Unavailable Primary Care Provider Unavailabl e Encounter Details Date Type Department Care Team (Late st Contact Info) Description 07/11/2021 Lab Requisition [facility] Laboratory Services [address] [place] [address] [place] [address] [place] [address] Social History Tobacco Use Types [...] - 10.5 K/uL 07/11/2021 9:11 AM CDT [facility] LABORATORY SERVICES [facility] RBC 3.85(L) 3.90 - 4.90 M/uL 07/11/2021 9:11 AM CDT [facility] LABORATORY [facility] HEMOGLOBIN 10.5(L) 11.8 - 14.8 g/dL 07/11/2021 9:11 AM CDT [facility] LABORATORY [facility] HEMATOCRIT 32.4(L) 35.5 - 44.0 % 07/11/2021 9:11 [facility] MCV 84.0 82.0 - 99.0 fL 07/11/2021 9:11 AM CDT [facility] LABORATORY [facility] MCH 27.1(L) 27.8 - 34.5 pg 07/11/2021 9:11 AM CDT [facility] LABORATORY [facility] MCHC 32.3(L) 32.5 - 35.5 g/dL 07/11/2021 9:11 AM CDT [facility] LABORATORY SERVICES [facility] RDW 15.2(H) 11.5 - 14.5 % 07/11/2021 9:11 AM CDT [facility] LABORATORY [facility] PLATELETS 404 160 - 420 K/uL 07/11/2021 9:11 AM CDT [facility] LABORATORY [facility] MPV 8.0(L) 8.7 - 12.7 fL 07/11/2021 9:11 AM CDT [facility] LABORATORY SERVICES [facility] NEUTROPHILS 49 % 07/11/2021 9:11 AM CDT [facility] LABORATORY SERVICES [facility] LYMPHOCYTES 37 % 07/11/2021 9:11 AM CDT [facility] LABORATORY SERVICES [facility] MONOCYTES 8 % 07/11/2021 9:11 AM CDT [facility] LABORATORY SERVICES [facility] EOSINOPHILS 5 % 07/11/2021 9:11 AM CDT [facility] LABORATORY SERVICES [facility] BASOPHILS 1 % 07/11/2021 9:11 AM CDT [facility] LABORATORY SERVICES [facility] NEUTROPHIL ABSOLUTE 3.90 1.90 - 7.00 K/uL 07/11/2021 9:11 AM CDT [facility] LABORATORY [facility] LYMPHOCYTE ABSOLUTE 3.00 0.70 - 4.50 K/uL 07/11/2021 9:11 AM CDT [facility] LABORATORY SERVICES [facility] MONOCYTE ABSOLUTE 0.60 0.10 - 1.30 K/uL 07/11/2021 9:11 AM CDT [facility]OR[facility]ORY [facility] EOSINOPHIL ABSOLUTE 0.40 0.00 - 0.70 K/uL 07/11/2021 9:11 AM CDT [facility] LABORATORY SERVICES - [facility] BASOPHILS ABSOLUTE 0.10 0.00 - 0.20 K/uL 07/11/2021 9:11 AM CDT [facility]ORY [facility] Blood Collection / Unknown 07/11/2021 5:00 AM CDT 07/11/2021 8:43 AM CDT us Nargis Guy MD HEMATOLOGY ORDERABLES Final Resu lt [facility] CLIA# [id number] [place] [address] documented in this encounter Visit Diagnoses Not on filedocumented in this encounter
--- OUTSIDE RECORDS SUMMARY | 2025-08-29 14:32 | XMS_ITS | Encounter Summary ---
Author Organization [facility] Address [address] [place] [address] Care Team Providers Care Collision Estimator Name Role Phone Unavailable Primary Care Provider Unavailabl e Encounter Details Date Type Department Care Team (Late st Contact Info) Description 07/08/2021 Lab Requisition [facility] Laboratory Services [address] [place] [address] [place] [address] [place] [address] Social History Tobacco Use Types [...] - 10.5 K/uL 07/08/2021 7:17 AM CDT [facility] RBC 3.47(L) 3.90 - 4.90 M/uL 07/08/2021 7:17 AM CDT [facility] HEMOGLOBIN 9.4(L) 11.8 - 14.8 g/dL 07/08/2021 7:17 AM CDFORMERLY [facility] HEMATOCRIT 29.2(L) 35.5 - 44.0 % 07/08/2021 7:17 AM CDT [facility] MCV 84.2 82.0 - 99.0 fL 07/08/2021 7:17 AM CDT [facility] MCH 27.1(L) 27.8 - 34.5 pg 07/08/2021 7:17 AM CDFORMERLY [facility] MCHC 32.1(L) 32.5 - 35.5 g/dL 07/08/2021 7:17 AM CDFORMERLY [facility] RDW 15.8(H) 11.5 - 14.5 % 07/08/2021 7:17 AM CDT [facility] PLATELETS 368 160 - 420 K/uL 07/08/2021 7:17 AM CDFORMERLY [facility] MPV 7.6(L) 8.7 - 12.7 fL 07/08/2021 7:17 AM CDT [facility] NEUTROPHILS 55 % 07/08/2021 7:17 AM CDT [facility] LYMPHOCYTES 32 % 07/08/2021 7:17 AM CDT [facility] MONOCYTES 7 % 07/08/2021 7:17 AM CDT [facility] EOSINOPHILS 5 % 07/08/2021 7:17 AM CDT [facility] BASOPHILS 1 % 07/08/2021 7:17 AM CDT [facility] NEUTROPHIL ABSOLUTE 3.50 1.90 - 7.00 K/uL 07/08/2021 7:17 AM CDT [facility] LYMPHOCYTE ABSOLUTE 2.00 0.70 - 4.50 K/uL 07/08/2021 7:17 AM CDT [facility] MONOCYTE ABSOLUTE 0.50 0.10 - 1.30 K/uL 07/08/2021 7:17 AM CDT [facility] EOSINOPHIL ABSOLUTE 0.30 0.00 - 0.70 K/uL 07/08/2021 7:17 AM CDT [facility] BASOPHILS ABSOLUTE 0.00 0.00 - 0.20 K/uL 07/08/2021 7:17 AM CDT [facility] Blood Collection / Unknown 07/08/2021 5:30 AM CDT 07/08/2021 6:13 AM CDT Nargis Guy MD HEMATOLOGY ORDERABLES Final Resu lt [facility] CLIA# [id number] [place] [address] * (ABNORMAL) COMPREHENSIVE METABOLIC PANEL (07/08/2021 5:30 AM CDT) SODIUM 137 136 - 145 mmol/L 07/08/2021 7:41 AM CDT [facility] POTASSIUM 4.2 3.4 - 5.1 mmol/L 07/08/2021 7:41 AM CDT [facility] CHLORIDE 102 98 - 107 mmol/L 07/08/2021 7:41 AM CDT [facility] CO2 24 22 - 29 mmol/L 07/08/2021 7:41 AM CDT [facility] CALCIUM 8.9 8.6 - 10.4 mg/dL 07/08/2021 7:41 AM CDT [facility] BUN 12 6 - 20 mg/dL 07/08/2021 7:41 AM CDT [facility] CREATININE 0.87 0.51 - 0.95 mg/dL 07/08/2021 7:41 AM CDT [facility] GLUCOSE 122(H) 74 - 99 mg/dL 07/08/2021 7:41 AM CDT [facility] TOTAL PROTEIN 6.0(L) 6.3 - 8.7 g/dL 07/08/2021 7:41 AM [facility] ALBUMIN 2.8(L) 3.5 - 5.2 g/dL 07/08/2021 7:41 AM [facility] BILIRUBIN TOTAL 0.2 0.2 - 1.1 mg/dL 07/08/2021 7:41 AM T [facility] ALKALINE PHOSPHATASE 92 40 - 150 U/L 07/08/2021 7:41 AM T [facility] AST 13 0 - 33 U/L 07/08/2021 7:41 AM [facility] ALT 10 0 - 33 U/L 07/08/2021 7:41 AM [facility] GFR >60 mL/min/1.7 3 sq meter 07/08/2021 7:41 AM [facility] Comment: [...] 3 sq meter 07/08/2021 7:41 AM CDT [facility] ANION GAP 11 8 - 16 mmol/L 07/08/2021 7:41 AM T [facility] Blood Collection / Unknown 07/08/2021 5:30 AM CDT 07/08/2021 6:13 AM CDT us Nargis Guy MD CHEMISTRY ORDERABLES Final Resul t [facility] CLIA# [id number] [place] [address] documented in this encounter Visit Diagnoses Not on filedocumented in this encounter
--- OUTSIDE RECORDS SUMMARY | 2025-08-29 14:32 | XMS_ITS | Clinical Summary ---
Author Organization [facility] Address [address] [place] [address] Care Team Providers Care Dental Director Name Role Phone Karime Aguilera RN, Haresh K MD Primary Care Provider [phone] Source Comments [facility],non-owned Affiliates and Associated Physician Practices is amultiple site organization consisting of ambulatory clinics and hospital sitesin [place], [place], [place] and [place]. This disclosure is being madepursuant to the Care Everywhere program and may not contain all information available regarding this patient. Last updated 18.[facility] Allergies Active Allergy Reactions Criticality [...] document. Alwaysverify current medications with the patient. MarcelaRole (REQUIP) 3 MG tablet TK 1 T [...] 1 8 Active Blood Glucose Monitoring Suppl (Contract Cloud VERIO FLEX SYSTEM) w/Device KIT 2 Active TRULICITY 1.5 MG/0.5ML injection 2 Active ergocalciferol (DRISDOL) 1.25 MG (04510 UT) capsule ergocalciferol (vitamin D2) 1,250 mcg [...] Endometrium, hyperplasia 05/07/2018 S/P vaginal hysterectomy 05/07/2018 Encounters Date Type Department Care Team Description 08/24/2025 Travel from Last 3 Months Immunizations Immunization Administration Dates Next Due FLU [...] 03/24/2024 2:20 PM CDT Plan of Treatment Upcoming Encounters Date Type Department Care Team (Late st Contact Info) Description 09/06/2025 11:30 AM CDT Office Visit [facility] - SERVICE [employer]ATION [employer]QUIPMENT MECHANIC [address] [place] [address] Christy Khan MD [address] [place] [address] Health Maintenance Due Date Last Done Comments COLOGMARLINRD (AGES 45-75) - COLON CA SCREENING 1960 [...] - Risk 60-74 years 1-dose series) 2021 DEPRESSION SCREENING 11/17/2024 SCREENING FOR DIABETES 04/04/2025 , 04/04/2022, 04/04/2022, Additional history exists COVID-19 VACCINE ( season) 2025 INFLUENZA VACCINE (#1) 2025 09/08/2018, 2016 HEPATITIS [...] POINT OF CARE (04/04/2022 8:36 AM CDT) Pathologist [facility] Glucose WB/POC 84 70 - 106 mg/dL 04/04/2022 8:46 AM CDT [facility] Specimen Type Cap Fingerstick 2021 8:46 AM CDT [facility] Blood BLOOD SPECIMEN / Unknown 04/04/2022 8:36 AM CDT 04/04/2022 8:46 AM CDT Tin Khan MD LAB - POINT OF CARE ORDERAB LES Final Result Performing Organization Address City/State/[facility] Co de Phone Number [facility] [address] [place] [address] from Last 3 Months or Most Recently Relevant to Health Maintenance Insurance [address] Advance Directives * Full Code (Latest Code Status on File) Date Activated Date Inactivated Comments 05/07/2018 11:05 AM 05/08/2018 2:57 PM Care Teams Dental Director Relationship Specialty Start Date End Date Motwani, Gurvinder K, MD [address] [place] [address] PCP - General 01/01/22 Karime Aguilera, RN 05/07/18
--- OUTSIDE RECORDS SUMMARY | 2025-08-29 14:32 | XMS_ITS | Encounter Summary ---
Author Organization [facility] Address [address] [place] [address] Care Team Providers Care Router Setter Name Role Phone Unavailable Primary Care Provider Unavailabl e Encounter Details Date Type Department Care Team (Late st Contact Info) Description 07/13/2021 Lab Requisition [facility] Laboratory Services [address] [place] [address] [place] [address] [place] [address] Social History Tobacco Use Types [...] AM CDT [facility]ORATORY [facility] EST. AVG GLUCOSE, A1C 131 mg/dL 07/13/2021 10:36 AM CDT [facility] Blood Collection / Unknown 07/13/2021 6:30 AM CDT 07/13/2021 10:06 AM CDT Narrative [facility] - 07/13/2021 10:36 AM CDT HGB A1C INTERPRETATION NORMAL: <5.7% PRE-DIABETES: 5.7 - 6.4% DIABETES: 6.5% OR GREATER Nargis Guy MD CHEMISTRY ORDERABLES Final Resul t [facility] CLIA# [id number] [place] [address] documented in this encounter Visit Diagnoses Not on filedocumented in this encounter
--- OUTSIDE RECORDS SUMMARY | 2025-08-29 14:32 | XMS_ITS | Encounter Summary ---
Author Organization [facility] Address [address] [place] [address] Care Team Providers Care Analytical Technician Name Role Phone Murali Silva MD Primary Care Provider [phone] Karime Aguilera RN [facility] Gurvinder Stephens MD Primary Care Provider [phone] Reason for Visit * Reason Onset Date Comments Patient Requested Call 11/05/2021 Encounter Details Date Type Department Care Team (Late st Contact Info) Description 11/05/2021 Telephone [facility] [address] [place] [address] Christy Khan MD [address] [address] Patient Requested Call Social History [...] Pari Denton RN - 11/05/2021 12:15 PM BLAST FURNACE SUPERVISOR RN called patient. Pt stating she does not want to stand as her knees buckle. Pt made aware that office does have lower exam tables. Pt stating she is coming to the office visit in electric wheelchair and will also be accompanied by home health. Will also pass along to and medical lab assistant IMANI Tesfaye T FURNACE SUPERVISOR * Telephone Encounter - Holly Yates - 11/05/2021 12:08 PM CST Patient is requesting a call back to confirm accommodations for her appt. She recently had surgery and won't be able to get on a high table for her exam. Please advise: [phone] T FURNACE SUPERVISOR documented in this encounter Plan of Treatment Upcoming Encounters Date Type Department Care Team (Late st Contact Info) Description 09/06/2025 11:30 AM CDT Office Visit [facility] - CONSTRUCTION MGR [address] [place] [address] Christy Khan MD [address] [place] [address] documented as of this encounter Visit Diagnoses Not on filedocumented in this encounter Care Teams Analytical Technician Relationship Specialty Start Date End Date Murali Silva MD [address] [place] [id number] PCP - General 03/03/18 12/31/21 Gurvinder Renteria MD [address] [place] [address] PCP - General 01/01/22 Karime Aguilera RN 05/07/18 documented as of this encounter
--- OUTSIDE RECORDS SUMMARY | 2025-08-29 14:32 | XMS_ITS | Encounter Summary ---
Author Organization [facility] Address [address] [place] [address] Care Team Providers Care Batch Weigher Name Role Phone Unavailable Primary Care Provider Unavailabl e Encounter Details Date Type Department Care Team (Late st Contact Info) Description 07/09/2021 Lab Requisition [facility] Laboratory Services [address] [place] [address] [facility], External Provider [address] [place] [address] Social History Tobacco Use Types Packs/Day Years [...] 20 - 40 mg/dL [facility] / Unknown 07/09/2021 4:00 AM CDT 07/09/2021 6:02 AM CDT us External Provider [facility] CHEMISTRY ORDERABLES Jennie inocencio Result [facility] CLIA# [id number] [address] [facility] [place] [address] * (ABNORMAL) CBC WITH DIFFERENTIAL (07/09/2021 4:00 AM CDT) WBC 7.3 4.5 - 10.5 K/uL 07/09/2021 6:20 AM CDT [facility] RBC 3.75(L) 3.90 - 4.90 M/uL 07/09/2021 6:20 AM CDT [facility] HEMOGLOBIN 10.0(L) 11.8 - 14.8 g/dL 07/09/2021 6:20 AM CDT [facility] HEMATOCRIT 31.5(L) 35.5 - 44.0 % 07/09/2021 6:20 AM CDT [facility] MCV 83.8 82.0 - 99.0 fL 07/09/2021 6:20 AM CDT [facility] MCH 26.8(L) 27.8 - 34.5 pg 07/09/2021 6:20 AM CDT [facility] MCHC 31.9(L) 32.5 - 35.5 g/dL 07/09/2021 6:20 AM CDT [facility] RDW 15.7(H) 11.5 - 14.5 % 07/09/2021 6:20 AM CDT [facility] PLATELETS 374 160 - 420 K/uL 07/09/2021 6:20 AM CDT [facility] MPV 7.8(L) 8.7 - 12.7 fL 07/09/2021 6:20 AM CDT [facility] [employer] [facility] NEUTROPHILS 52 % 07/09/2021 6:20 AM CDT [facility] LABORATORY SERVICES [facility] LYMPHOCYTES 36 % 07/09/2021 6:20 AM CDT [facility] SERVICES [facility] MONOCYTES 6 % 07/09/2021 6:20 AM CDT [facility] SERVICES [facility] EOSINOPHILS 5 % 07/09/2021 6:20 AM CDT [facility] SERVICES [facility] BASOPHILS 1 % 07/09/2021 6:20 AM CDT [facility] SERVICES [facility] NEUTROPHIL ABSOLUTE 3.80 1.90 - 7.00 K/uL 07/09/2021 6:20 AM CDT [facility] SERVICES [facility] LYMPHOCYTE ABSOLUTE 2.60 0.70 - 4.50 K/uL 07/09/2021 6:20 AM CDT [facility] SERVICES [facility] MONOCYTE ABSOLUTE 0.50 0.10 - 1.30 K/uL 07/09/2021 6:20 AM CDT [facility] SERVICES [facility] EOSINOPHIL ABSOLUTE 0.40 0.00 - 0.70 K/uL 07/09/2021 6:20 AM CDT [facility]OR[facility] SERVICES [facility] BASOPHILS ABSOLUTE 0.10 0.00 - 0.20 K/uL 07/09/2021 6:20 AM CDT [facility] Blood Collection / Unknown 07/09/2021 4:00 AM CDT 07/09/2021 6:02 AM CDT us External Provider [facility] HEMATOLOGY ORDERABLES Fin al Result [facility] CLIA# [id number] [place] [address] * (ABNORMAL) COMPREHENSIVE METABOLIC PANEL (07/09/2021 4:00 AM CDT) SODIUM 137 136 - 145 mmol/L 07/09/2021 6:41 AM CDT [facility] POTASSIUM 4.4 3.4 - 5.1 mmol/L 07/09/2021 6:41 AM CDT [facility] CHLORIDE 101 98 - 107 mmol/L 07/09/2021 6:41 AM [facility] CO2 24 22 - 29 mmol/L 07/09/2021 6:41 AM [facility] CALCIUM 9.2 8.6 - 10.4 mg/dL 07/09/2021 6:41 AM [facility] BUN 15 6 - 20 mg/dL 07/09/2021 6:41 AM [facility] CREATININE 0.92 0.51 - 0.95 mg/dL 07/09/2021 6:41 AM [facility] GLUCOSE 129(H) 74 - 99 mg/dL 07/09/2021 6:41 AM [facility] TOTAL PROTEIN 6.5 6.3 - 8.7 g/dL 07/09/2021 6:41 AM [facility] ALBUMIN 3.1(L) 3.5 - 5.2 g/dL 07/09/2021 6:41 AM [facility] BILIRUBIN TOTAL <0.2(L) 0.2 - 1.1 mg/dL 07/09/2021 6:41 AM [facility] ALKALINE PHOSPHATASE 99 40 - 150 U/L 07/09/2021 6:41 AM [facility] AST 15 0 - 33 U/L 07/09/2021 6:41 AM [facility] ALT 11 0 - 33 U/L 07/09/2021 6:41 AM [facility] GFR >60 mL/min/1.7 3 sq meter 07/09/2021 6:41 AM [facility] Comment: eGFR has not been validated [...] 3 sq meter 07/09/2021 6:41 AM CDT [facility] LABORATORY SERVICES [facility] ANION GAP 12 8 - 16 mmol/L 07/09/2021 6:41 AM CDT [facility] Blood Collection / Unknown 07/09/2021 4:00 AM CDT 07/09/2021 6:02 AM CDT us External Provider [facility] CHEMISTRY ORDERABLES Jennie l Result [facility] [employer] [facility] CLIA# [id number] [address] [place] [address] documented in this encounter Visit Diagnoses Not on filedocumented in this encounter
--- OUTSIDE RECORDS SUMMARY | 2025-08-29 14:32 | XMS_ITS | Encounter Summary ---
Author Organization [facility] Address [address] [place] [address] Care Team Providers Care Tape Librarian Name Role Phone Unavailable Primary Care Provider Unavailabl e Encounter Details Date Type Department Care Team (Late st Contact Info) Description 06/24/2021 Lab Requisition [facility] Laboratory Services [address] [place] [address] [place] [address] [place] [address] Social History Tobacco Use Types [...] - 10.5 K/uL 06/24/2021 6:33 AM CDT [facility] LABORATORY [facility] RBC 3.59(L) 3.90 - 4.90 M/uL 06/24/2021 6:33 AM CDT [facility] HEMOGLOBIN 9.8(L) 11.8 - 14.8 g/dL 06/24/2021 6:33 AM CDT [facility] HEMATOCRIT 30.2(L) 35.5 - 44.0 % 06/24/2021 6:33 AM CDT [facility] MCV 84.3 82.0 - 99.0 fL 06/24/2021 6:33 AM CDT [facility] MCH 27.3(L) 27.8 - 34.5 pg 06/24/2021 6:33 AM CDT [facility] MCHC 32.4(L) 32.5 - 35.5 g/dL 06/24/2021 6:33 AM CDT [facility] RDW 15.9(H) 11.5 - 14.5 % 06/24/2021 6:33 AM CDT [facility] LABORATORY [facility] PLATELETS 353 160 - 420 K/uL 06/24/2021 6:33 AM CDT [facility] LABORAT[facility] MPV 8.2(L) 8.7 - 12.7 fL 06/24/2021 6:33 AM CDT [facility] LABORATORY [facility] NEUTROPHILS 54 % 06/24/2021 6:33 AM CDT [facility] LABORATORY [facility] LYMPHOCYTES 34 % 06/24/2021 6:33 AM CDT [facility] LABORAT[facility] MONOCYTES 8 % 06/24/2021 6:33 AM CDT [facility] LABORAT[facility] EOSINOPHILS 4 % 06/24/2021 6:33 AM CDT [facility] BASOPHILS 1 % 06/24/2021 6:33 AM CDT [facility] LABOR[facility] NEUTROPHIL ABSOLUTE 3.60 1.90 - 7.00 K/uL 06/24/2021 6:33 AM CDT [facility] LABORAT[facility] LYMPHOCYTE ABSOLUTE 2.20 0.70 - 4.50 K/uL 06/24/2021 6:33 AM CDT [facility] LABORATORY [facility] MONOCYTE ABSOLUTE 0.50 0.10 - 1.30 K/uL 06/24/2021 6:33 AM CDT [facility] LABORATORY SERVICES [facility] EOSINOPHIL ABSOLUTE 0.20 0.00 - 0.70 K/uL 06/24/2021 6:33 AM CDT [facility] LABORATORY SERVICES [facility] BASOPHILS ABSOLUTE 0.10 0.00 - 0.20 K/uL 06/24/2021 6:33 AM CDT [facility] Blood 06/24/2021 4:30 AM CDT 06/24/2021 6:18 AM CDT us Nargis Guy MD HEMATOLOGY ORDERABLES Final Resu lt [facility] CLIA# [id number] [place] [address] * (ABNORMAL) COMPREHENSIVE METABOLIC PANEL (06/24/2021 4:30 AM CDT) SODIUM 140 136 - 145 mmol/L 06/24/2021 6:58 AM CDT [facility] LAB[facility] POTASSIUM 4.6 3.4 - 5.1 mmol/L 06/24/2021 6:58 AM CDT [facility] LAB[facility]AT[facility] CHLORIDE 105 98 - 107 mmol/L 06/24/2021 6:58 AM CDT [facility] LABORATORY [facility] CO2 22 22 - 29 mmol/L 06/24/2021 6:58 AM CDT [facility] LABORATORY [facility] CALCIUM 8.9 8.6 - 10.4 mg/dL 06/24/2021 6:58 AM CDT [facility] LAB[facility] BUN 11 6 - 20 mg/dL 06/24/2021 6:58 AM CDT [facility] LAB[facility] CREATININE 0.93 0.51 - 0.95 mg/dL 06/24/2021 6:58 AM CDT [facility] GLUCOSE 97 74 - 99 mg/dL 06/24/2021 6:58 AM CDT [facility] TOTAL PROTEIN 6.3 6.3 - 8.7 g/dL 06/24/2021 6:58 AM CDT [facility] ALBUMIN 2.7(L) 3.5 - 5.2 g/dL 06/24/2021 6:58 AM T [facility] BILIRUBIN TOTAL 0.2(L) 0.3 - 1.2 mg/dL 06/24/2021 6:58 AM T [facility] ALKALINE PHOSPHATASE 110 40 - 150 U/L 06/24/2021 6:58 AM CDT [facility] AST 24 0 - 33 U/L 06/24/2021 6:58 AM T [facility] ALT 20 0 - 33 U/L 06/24/2021 6:58 AM T [facility] GFR >60 mL/min/1.7 3 sq meter 06/24/2021 6:58 AM T [facility] Comment: eGFR has not been [...] 3 sq meter 06/24/2021 6:58 AM CDT [facility] ANION GAP 13 8 - 16 mmol/L 06/24/2021 6:58 AM T [facility] Blood 06/24/2021 4:30 AM CDT 06/24/2021 6:18 AM CDT us Nargis Guy MD CHEMISTRY ORDERABLES Final Resul t [facility] CLIA# [id number] [place] [address] documented in this encounter Visit Diagnoses Not on filedocumented in this encounter
--- OUTSIDE RECORDS SUMMARY | 2025-08-29 14:32 | XMS_ITS | Encounter Summary ---
Author Organization [facility] Address [address] [place] [address] Care Team Providers Care Precision Filer Hand Name Role Phone Unavailable Primary Care Provider Unavailabl e Encounter Details Date Type Department Care Team (Late st Contact Info) Description 06/27/2021 Lab Requisition [facility] Laboratory Services [address] [place] [address] [place] [address] [place] [address] Social History Tobacco Use Types [...] - 10.5 K/uL 06/27/2021 8:37 AM CDT [facility] RBC 3.25(L) 3.90 - 4.90 M/uL 06/27/2021 8:37 AM CDT [facility] HEMOGLOBIN 8.9(L) 11.8 - 14.8 g/dL 06/27/2021 8:[facility] HEMATOCRIT 27.8(L) 35.5 - 44.0 % 06/27/2021 8:37 AM CDT [facility] MCV 85.6 82.0 - 99.0 fL 06/27/2021 8:37 AM CDT [facility] MCH 27.5(L) 27.8 - 34.5 pg 06/27/2021 8:37 AM CDT [facility] MCHC 32.2(L) 32.5 - 35.5 g/dL 06/27/2021 8:37 AM CDT [facility] RDW 15.7(H) 11.5 - 14.5 % 06/27/2021 8:37 AM CDT [facility] PLATELETS 367 160 - 420 K/uL 06/27/2021 8:37 [facility] MPV 7.7(L) 8.7 - 12.7 fL 06/27/2021 8:37 AM CDT [facility] NEUTROPHILS 53 % 06/27/2021 8:37 AM CDT [facility] LYMPHOCYTES 33 % 06/27/2021 8:37 AM CDT [facility] MONOCYTES 9 % 06/27/2021 8:37 AM CDT [facility] EOSINOPHILS 4 % 06/27/2021 8:37 AM CDT [facility] BASOPHILS 1 % 06/27/2021 8:37 AM CDT [facility] NEUTROPHIL ABSOLUTE 3.40 1.90 - 7.00 K/uL 06/27/2021 8:37 AM CDT [facility] LYMPHOCYTE ABSOLUTE 2.20 0.70 - 4.50 K/uL 06/27/2021 8:37 AM CDT [facility] MONOCYTE ABSOLUTE 0.60 0.10 - 1.30 K/uL 06/27/2021 8:37 AM CDT [facility] SERVICES [facility] EOSINOPHIL ABSOLUTE 0.30 0.00 - 0.70 K/uL 06/27/2021 8:37 AM CDT [facility] SERVICES [facility] BASOPHILS ABSOLUTE 0.10 0.00 - 0.20 K/uL 06/27/2021 8:37 AM CDT [facility] Blood Collection / Unknown 06/27/2021 4:22 AM CDT 06/27/2021 8:17 AM CDT Nargis Guy MD HEMATOLOGY ORDERABLES Final Resu lt [facility] CLIA# [id number] [place] [address] * (ABNORMAL) COMPREHENSIVE METABOLIC PANEL (06/27/2021 4:22 AM CDT) SODIUM 137 136 - 145 mmol/L 06/27/2021 9:05 AM CDT [facility] POTASSIUM 3.9 3.4 - 5.1 mmol/L 06/27/2021 9:05 AM T [facility] CHLORIDE 104 98 - 107 mmol/L 06/27/2021 9:05 AM T [facility] CO2 24 22 - 29 mmol/L 06/27/2021 9:05 AM T [facility] CALCIUM 8.8 8.6 - 10.4 mg/dL 06/27/2021 9:05 AM CDT [facility] BUN 10 6 - 20 mg/dL 06/27/2021 9:05 AM CDT [facility] CREATININE 1.00(H) 0.51 - 0.95 mg/dL 06/27/2021 9:05 AM T [facility] GLUCOSE 110(H) 74 - 99 mg/dL 06/27/2021 9:05 AM T [facility] TOTAL PROTEIN 5.9(L) 6.3 - 8.7 g/dL 06/27/2021 9:05 AM [facility] ALBUMIN 2.5(L) 3.5 - 5.2 g/dL 06/27/2021 9:05 AM [facility] BILIRUBIN TOTAL <0.2(L) 0.2 - 1.1 mg/dL 06/27/2021 9:05 AM [facility] ALKALINE PHOSPHATASE 96 40 - 150 U/L 06/27/2021 9:05 AM [facility] AST 19 0 - 33 U/L 06/27/2021 9:05 AM [facility] ALT 17 0 - 33 U/L 06/27/2021 9:05 AM [facility] GFR 57 mL/min/1.7 3 sq meter 06/27/2021 9:05 AM [facility] Comment: eGFR [...] 8 - 16 mmol/L 06/27/2021 9:05 AM [facility] Blood Collection / Unknown 06/27/2021 4:22 AM CDT 06/27/2021 8:17 AM CDT us Nargis Guy MD CHEMISTRY ORDERABLES Final Resul t [facility] CLIA# [id number] [place] [address] documented in this encounter Visit Diagnoses Not on filedocumented in this encounter
--- OUTSIDE RECORDS SUMMARY | 2025-08-29 14:32 | XMS_ITS | Encounter Summary ---
Author Organization [facility] Address [address] [place] [address] Care Team Providers Care Reference Assistant Name Role Phone Unavailable Primary Care Provider Unavailabl e Encounter Details Date Type Department Care Team (Late st Contact Info) Description 07/05/2021 Lab Requisition [facility] Services [address] [place] [address] [place] [address] [place] [address] Social History Tobacco Use Types [...] - 10.5 K/uL 07/05/2021 10:39 AM CDT [facility] RBC 3.78(L) 3.90 - 4.90 M/uL 07/05/2021 10:[facility] HEMOGLOBIN 10.0(L) 11.8 - 14.8 g/dL 07/05/2021 10:39 [facility] HEMATOCRIT 31.8(L) 35.5 - 44.0 % 07/05/2021 10:39 AM CDT [facility] MCV 84.2 82.0 - 99.0 fL 07/05/2021 10:39 [facility] MCH 26.5(L) 27.8 - 34.5 pg 07/05/2021 10:39 [facility] MCHC 31.5(L) 32.5 - 35.5 g/dL 07/05/2021 10:39 AM [facility] RDW 15.4(H) 11.5 - 14.5 % 07/05/2021 10:39 AM CDT [facility] PLATELETS 368 160 - 420 K/uL 07/05/2021 10:39 AM [facility] MPV 7.5(L) 8.7 - 12.7 fL 07/05/2021 10:39 AM CDT [facility] NEUTROPHILS 53 % 07/05/2021 10:39 AM CDT [facility] LYMPHOCYTES 33 % 07/05/2021 10:39 AM CDT [facility] MONOCYTES 8 % 07/05/2021 10:39 AM CDT [facility] SERVICES [facility] EOSINOPHILS 5 % 07/05/2021 10:39 AM CDT [facility] SERVICES [facility] BASOPHILS 1 % 07/05/2021 10:39 AM CDT [facility] NEUTROPHIL ABSOLUTE 3.40 1.90 - 7.00 K/uL 07/05/2021 10:39 AM CDT [facility] LYMPHOCYTE ABSOLUTE 2.20 0.70 - 4.50 K/uL 07/05/2021 10:39 AM CDT [facility] MONOCYTE ABSOLUTE 0.50 0.10 - 1.30 K/uL 07/05/2021 10:39 AM CDT [facility] SERVICES - [facility] EOSINOPHIL ABSOLUTE 0.30 0.00 - 0.70 K/uL 07/05/2021 10:39 AM CDT [facility] SERVICES - [facility] BASOPHILS ABSOLUTE 0.10 0.00 - 0.20 K/uL 07/05/2021 10:39 AM CDT [facility] SERVICES [facility] Blood Collection / Unknown 07/05/2021 6:00 AM CDT 07/05/2021 10:24 AM CDT Nargis Guy MD HEMATOLOGY ORDERABLES Final Resu lt [facility] CLIA# [id number] [place] [address] * (ABNORMAL) COMPREHENSIVE METABOLIC PANEL (07/05/2021 6:00 AM CDT) SODIUM 139 136 - 145 mmol/L 07/05/2021 11:04 AM CDT [facility] POTASSIUM 4.5 3.4 - 5.1 mmol/L 07/05/2021 11:04 AM CDT [facility] SERVICES [facility] CHLORIDE 102 98 - 107 mmol/L 07/05/2021 11:04 AM CDT [facility] SERVICES [facility] CO2 25 22 - 29 mmol/L 07/05/2021 11:04 AM CDT [facility] SERVICES [facility] CALCIUM 9.1 8.6 - 10.4 mg/dL 07/05/2021 11:04 AM CDT [facility] SERVICES [facility] BUN 14 6 - 20 mg/dL 07/05/2021 11:04 AM CDT [facility] SERVICES [facility] CREATININE 0.95 0.51 - 0.95 mg/dL 07/05/2021 11:04 AM CDT [facility] SERVICES [facility] GLUCOSE 101(H) 74 - 99 mg/dL 07/05/2021 11:04 AM CDT [facility] SERVICES [facility] TOTAL PROTEIN 6.1(L) 6.3 - 8.7 g/dL 07/05/2021 11:04 AM [facility] ALBUMIN 2.9(L) 3.5 - 5.2 g/dL 07/05/2021 11:04 AM [facility] BILIRUBIN TOTAL <0.2(L) 0.2 - 1.1 mg/dL 07/05/2021 11:04 AM [facility] ALKALINE PHOSPHATASE 107 40 - 150 U/L 07/05/2021 11:04 AM [facility] AST 16 0 - 33 U/L 07/05/2021 11:04 AM [facility] ALT 13 0 - 33 U/L 07/05/2021 11:04 AM [facility] GFR 60 mL/min/1.7 3 sq meter 07/05/2021 11:04 AM [facility] Comment: eGFR has not been [...] 3 sq meter 07/05/2021 11:04 AM T [facility] ANION GAP 12 8 - 16 mmol/L 07/05/2021 11:04 AM [facility] Blood Collection / Unknown 07/05/2021 6:00 AM CDT 07/05/2021 10:24 AM CDT us Nargis Guy MD CHEMISTRY ORDERABLES Final Resul t [facility] CLIA# [id number] [place] [address] documented in this encounter Visit Diagnoses Not on filedocumented in this encounter
--- OUTSIDE RECORDS SUMMARY | 2025-08-29 14:32 | XMS_ITS | Encounter Summary ---
Author Organization [facility] Address [address] [place] [address] Care Team Providers Care Zoning Technician Name Role Phone Unavailable Primary Care Provider Unavailabl e Encounter Details Date Type Department Care Team (Late st Contact Info) Description 06/30/2021 Lab Requisition [facility] Laboratory Services [address] [place] [address] [place] [address] [place] [address] Social History Tobacco Use Types [...] - 10.5 K/uL 06/30/2021 11:22 AM CDT [facility] RBC 3.44(L) 3.90 - 4.90 M/uL 06/30/2021 11:22 AM CDT [facility] HEMOGLOBIN 9.4(L) 11.8 - 14.8 g/dL 06/30/2021 11:22 AM CDPENDING SALE TO [facility] HEMATOCRIT 29.4(L) 35.5 - 44.0 % 06/30/2021 11:22 AM CDT [facility] MCV 85.4 82.0 - 99.0 fL 06/30/2021 11:22 AM CDT [facility] MCH 27.3(L) 27.8 - 34.5 pg 06/30/2021 11:22 AM CDPENDING SALE TO [facility] MCHC 32.0(L) 32.5 - 35.5 g/dL 06/30/2021 11:22 AM CDPENDING SALE TO [facility] RDW 15.6(H) 11.5 - 14.5 % 06/30/2021 11:22 AM CDT [facility] PLATELETS 408 160 - 420 K/uL 06/30/2021 11:22 AM CDPENDING SALE TO [facility] MPV 7.9(L) 8.7 - 12.7 fL 06/30/2021 11:22 AM CDT [facility] SERVICES [facility] NEUTROPHILS 53 % 06/30/2021 11:22 AM CDT [facility] LYMPHOCYTES 33 % 06/30/2021 11:22 AM CDT [facility] SERVICES [facility] MONOCYTES 8 % 06/30/2021 11:22 AM CDT [facility] SERVICES [facility] EOSINOPHILS 5 % 06/30/2021 11:22 AM CDT [facility] SERVICES [facility] BASOPHILS 1 % 06/30/2021 11:22 AM CDT [facility] SERVICES [facility] NEUTROPHIL ABSOLUTE 3.50 1.90 - 7.00 K/uL 06/30/2021 11:22 AM CDT [facility] LYMPHOCYTE ABSOLUTE 2.20 0.70 - 4.50 K/uL 06/30/2021 11:22 AM CDT [facility] MONOCYTE ABSOLUTE 0.50 0.10 - 1.30 K/uL 06/30/2021 11:22 AM CDT [facility] SERVICES [facility] EOSINOPHIL ABSOLUTE 0.30 0.00 - 0.70 K/uL 06/30/2021 11:22 AM CDT [facility] SERVICES [facility] BASOPHILS ABSOLUTE 0.10 0.00 - 0.20 K/uL 06/30/2021 11:22 AM CDT [facility] Blood Collection / Unknown 06/30/2021 3:45 AM CDT 06/30/2021 10:45 AM CDT Nargis Guy MD HEMATOLOGY ORDERABLES Final Resu lt [facility] CLIA# [id number] [place] [address] * (ABNORMAL) COMPREHENSIVE METABOLIC PANEL (06/30/2021 3:45 AM CDT) SODIUM 139 136 - 145 mmol/L 06/30/2021 11:40 AM CDT [facility] POTASSIUM 4.3 3.4 - 5.1 mmol/L 06/30/2021 11:40 AM CDT [facility] CHLORIDE 103 98 - 107 mmol/L 06/30/2021 11:40 AM CDT [facility] CO2 23 22 - 29 mmol/L 06/30/2021 11:40 AM CDT [facility] CALCIUM 8.7 8.6 - 10.4 mg/dL 06/30/2021 11:40 AM CDT [facility] BUN 12 6 - 20 mg/dL 06/30/2021 11:40 AM CDT [facility] SERVICES [facility] CREATININE 0.89 0.51 - 0.95 mg/dL 06/30/2021 11:40 AM CDT [facility] GLUCOSE 107(H) 74 - 99 mg/dL 06/30/2021 11:40 AM CDT [facility] TOTAL PROTEIN 6.0(L) 6.3 - 8.7 g/dL 06/30/2021 11:40 AM [facility] ALBUMIN 2.7(L) 3.5 - 5.2 g/dL 06/30/2021 11:40 AM T [facility] BILIRUBIN TOTAL <0.2(L) 0.2 - 1.1 mg/dL 06/30/2021 11:40 AM T [facility] ALKALINE PHOSPHATASE 110 40 - 150 U/L 06/30/2021 11:40 AM T [facility] AST 23 0 - 33 U/L 06/30/2021 11:40 AM [facility] ALT 18 0 - 33 U/L 06/30/2021 11:40 AM [facility] GFR >60 mL/min/1.7 3 sq meter 06/30/2021 11:40 AM T [facility] Comment: eGFR [...] 3 sq meter 06/30/2021 11:40 AM CDT [facility] ANION GAP 13 8 - 16 mmol/L 06/30/2021 11:40 AM T [facility] Blood Collection / Unknown 06/30/2021 3:45 AM CDT 06/30/2021 10:45 AM CDT us Nargis Guy MD CHEMISTRY ORDERABLES Final Resul t [facility] CLIA# [id number] [place] [address] documented in this encounter Visit Diagnoses Not on filedocumented in this encounter
--- OUTSIDE RECORDS SUMMARY | 2025-08-29 14:32 | XMS_ITS | Encounter Summary ---
Author Organization [facility] Address [address] [place] [address] Care Team Providers Care Motor Coach Chauffeur Name Role Phone Unavailable Primary Care Provider Unavailabl e Encounter Details Date Type Department Care Team (Late st Contact Info) Description 06/21/2021 Lab Requisition [facility] Laboratory Services [address] [place] [address] [place] [address] [place] [address] Social History Tobacco Use [...] - 10.5 K/uL 06/21/2021 1:36 PM CDT [facility] RBC 3.66(L) 3.90 - 4.90 M/uL 06/21/2021 1:36 PM [facility] HEMOGLOBIN 10.1(L) 11.8 - 14.8 g/dL 06/21/2021 1:36 PM [facility] HEMATOCRIT 31.1(L) 35.5 - 44.0 % 06/21/2021 1:36 PM CDT [facility] MCV 84.9 82.0 - 99.0 fL 06/21/2021 1:36 [facility] MCH 27.5(L) 27.8 - 34.5 pg 06/21/2021 1:36 PM [facility] MCHC 32.3(L) 32.5 - 35.5 g/dL 06/21/2021 1:36 PM [facility] RDW 15.7(H) 11.5 - 14.5 % 06/21/2021 1:36 PM CDT [facility] PLATELETS 397 160 - 420 K/uL 06/21/2021 1:36 PM [facility] MPV 7.6(L) 8.7 - 12.7 fL 06/21/2021 1:36 PM CDT [facility] NEUTROPHILS 64 % 06/21/2021 1:36 PM CDT [facility] LYMPHOCYTES 26 % 06/21/2021 1:36 PM CDT [facility] MONOCYTES 7 % 06/21/2021 1:36 PM CDT [facility] SERVICES [facility] EOSINOPHILS 3 % 06/21/2021 1:36 PM CDT [facility] BASOPHILS 0 % 06/21/2021 1:36 PM CDT [facility] NEUTROPHIL ABSOLUTE 5.00 1.90 - 7.00 K/uL 06/21/2021 1:36 PM CDT [facility] LYMPHOCYTE ABSOLUTE 2.00 0.70 - 4.50 K/uL 06/21/2021 1:36 PM CDT [facility] MONOCYTE ABSOLUTE 0.50 0.10 - 1.30 K/uL 06/21/2021 1:36 PM CDT [facility] SERVICES [facility] EOSINOPHIL ABSOLUTE 0.30 0.00 - 0.70 K/uL 06/21/2021 1:36 PM CDT [facility] SERVICES [facility] BASOPHILS ABSOLUTE 0.00 0.00 - 0.20 K/uL 06/21/2021 1:36 PM CDT [facility] Blood Collection / Unknown 06/21/2021 11:20 AM CDT 06/21/2021 1:28 PM CDT Nargis Guy MD HEMATOLOGY ORDERABLES Final Resu lt [facility] CLIA# [id number] [place] [address] * (ABNORMAL) COMPREHENSIVE METABOLIC PANEL (06/21/2021 11:20 AM CDT) Pathologist [facility] SODIUM 137 136 - 145 mmol/L 06/21/2021 2:02 PM CDT [facility] POTASSIUM 4.3 3.4 - 5.1 mmol/L 06/21/2021 2:02 PM CDT [facility] CHLORIDE 102 98 - 107 mmol/L 06/21/2021 2:02 PM CDT [facility] CO2 25 22 - 29 mmol/L 06/21/2021 2:02 PM CDT [facility] CALCIUM 9.2 8.6 - 10.4 mg/dL 06/21/2021 2:02 PM CDT [facility] BUN 11 6 - 20 mg/dL 06/21/2021 2:02 PM CDT [facility] CREATININE 0.90 0.51 - 0.95 mg/dL 06/21/2021 2:02 PM CDT [facility] GLUCOSE 130(H) 74 - 99 mg/dL 06/21/2021 2:02 PM CDT [facility] TOTAL PROTEIN 6.6 6.3 - 8.7 g/dL 06/21/2021 2:02 PM T [facility] ALBUMIN 2.8(L) 3.5 - 5.2 g/dL 06/21/2021 2:02 PM T [facility] BILIRUBIN TOTAL 0.2(L) 0.3 - 1.2 mg/dL 06/21/2021 2:02 PM T [facility] ALKALINE PHOSPHATASE 120 40 - 150 U/L 06/21/2021 2:02 PM T [facility] AST 27 0 - 33 U/L 06/21/2021 2:02 PM [facility] ALT 23 0 - 33 U/L 06/21/2021 2:02 PM T [facility] GFR >60 mL/min/1.7 3 sq meter 06/21/2021 2:02 PM T [facility] Comment: eGFR has [...] 3 sq meter 06/21/2021 2:02 PM CDT [facility] ANION GAP 10 8 - 16 mmol/L 06/21/2021 2:02 PM T [facility] Blood Collection / Unknown 06/21/2021 11:20 AM CDT 06/21/2021 1:28 PM CDT us Nargis Guy MD CHEMISTRY ORDERABLES Final Resul t [facility] CLIA# [id number] [place] [address] documented in this encounter Visit Diagnoses Not on filedocumented in this encounter
--- OUTSIDE RECORDS SUMMARY | 2025-08-29 14:32 | XMS_ITS | Encounter Summary ---
Author Organization [facility] Address [address] [place] [address] Care Team Providers Care Group Counselor Name Role Phone Unavailable Primary Care Provider Unavailabl e Encounter Details Date Type Department Care Team (Late st Contact Info) Description 05/17/2021 Lab Requisition [facility] Laboratory Services [id number] [place] [address] [place] [id number] [place] [address] Social History Tobacco Use Types [...] - 10.5 K/uL 05/17/2021 10:31 AM CDT [facility] RBC 2.72(L) 3.90 - 4.90 M/uL 05/17/2021 10:31 AM CDT [facility] HEMOGLOBIN 7.9(L) 11.8 - 14.8 g/dL 05/17/2021 10:31 AM CDT [facility] HEMATOCRIT 23.6(L) 35.5 - 44.0 % 05/17/2021 10:31 AM CDT [facility] MCV 86.6 82.0 - 99.0 fL 05/17/2021 10:31 AM CDT [facility] MCH 28.9 27.8 - 34.5 pg 05/17/2021 10:31 AM CDT [facility] MCHC 33.3 32.5 - 35.5 g/dL 05/17/2021 10:31 AM CDT [facility] RDW 14.7(H) 11.5 - 14.5 % 05/17/2021 10:31 AM CDT [facility] PLATELETS 188 160 - 420 K/uL 05/17/2021 10:31 AM CDT [facility] MPV 8.8 8.7 - 12.7 fL 05/17/2021 10:31 AM CDT [facility] NEUTROPHILS 59 % 05/17/2021 10:31 AM CDT [facility] LYMPHOCYTES 21 % 05/17/2021 10:31 AM CDT [facility] MONOCYTES 14 % 05/17/2021 10:31 AM CDT [facility] EOSINOPHILS 5 % 05/17/2021 10:31 AM CDT [facility] BASOPHILS 1 % 05/17/2021 10:31 AM CDT [facility] NEUTROPHIL ABSOLUTE 5.80 1.90 - 7.00 K/uL 05/17/2021 10:31 AM CDT [facility] LYMPHOCYTE ABSOLUTE 2.10 0.70 - 4.50 K/uL 05/17/2021 10:31 AM CDT [facility] MONOCYTE ABSOLUTE 1.30 0.10 - 1.30 K/uL 05/17/2021 10:31 AM CDT [facility] - [facility] EOSINOPHIL ABSOLUTE 0.50 0.00 - 0.70 K/uL 05/17/2021 10:31 AM CDT [facility] - [facility] BASOPHILS ABSOLUTE 0.10 0.00 - 0.20 K/uL 05/17/2021 10:31 AM CDT [facility] Blood Collection / Unknown 05/17/2021 5:20 AM CDT 05/17/2021 10:01 AM CDT us Nargis Guy MD HEMATOLOGY ORDERABLES Final Resu lt [facility] CLIA# [id number] [place] [address] documented in this encounter Visit Diagnoses Not on filedocumented in this encounter
--- OUTSIDE RECORDS SUMMARY | 2025-08-29 14:32 | XMS_ITS | Encounter Summary ---
Author Organization [facility] Address [address] [place] [address] Care Team Providers Care Small Craft Operator Name Role Phone Unavailable Primary Care Provider Unavailabl e Encounter Details Date Type Department Care Team (Late st Contact Info) Description 06/21/[address] [facility] Laboratory Services [address] [place] [address] [place] [address] [place] [address] Social History Tobacco Use Types [...] COLI(A) HAKEEM MCG/ML 06/23/2021 8:32 AM CDT [facility] Urine URINE SPECIMEN OBTAINED BY CLEAN [...] - GENERAL ORDERABLE S Final Result [facility]# [id number] [facility] [place] [address] * (ABNORMAL) URINALYSIS WITH REFLEX CULTURE (06/20/2021 8:08 PM CDT) COLOR UA Yellow Pale to Dark Yellow 06/21/2021 11:06 AM CDT [facility] CLARITY UA Slightly Cloudy(A) Clear 06/21/2021 11:06 AM CDT [facility] SPECIFIC GRAVITY UA 1.012 1.003 - 1.035 06/21/2021 11:06 AM CDT [facility] PH UA 5.0 5.0 - 8.0 06/21/2021 11:06 AM CDT [facility] LEUKOCYTE ESTERASE UA 1+(A) Negative 06/21/2021 11:06 AM [facility] NITRITE UA Positive(A) Negative 06/21/2021 11:06 AM [facility] PROTEIN UA Negative Negative 06/21/2021 11:06 AM T [facility] GLUCOSE UA 1+(A) Negative 06/21/2021 11:06 AM T [facility] KETONES UA Negative Negative 06/21/2021 11:06 AM T [facility] UROBILINOGEN UA Normal <2.0 mg/dL 11:06 AM T [facility] BILIRUBIN UA Negative Negative 06/21/2021 11:06 AM T [facility] BLOOD UA 1+(A) Negative 06/21/2021 11:06 AM [facility] WBC UA 11-25(A) 0 - 2 /hpf 06/21/2021 11:06 AM T [facility] RBC UA 6-10(A) 0 - 2 /hpf 06/21/2021 11:06 AM CDT [facility] BACTERIA UA 2+(A) Negative /hpf 06/21/2021 11:06 AM T [facility] EPITHELIAL CELLS, URINE 6-10(A) 0 - 5 /hpf 06/21/2021 11:06 AM [facility] HYALINE CAST None Seen None Seen, 0-2 /lpf 06/21/2021 11:06 AM [facility] Urine URINE SPECIMEN OBTAINED BY CLEAN CATCH PROCEDURE / Unknown Collection / Unknown 06/20/2021 8:08 PM CDT 06/21/2021 10:[address] [facility] - 06/21/2021 11:06 AM CDT Based on results, a urine culture has been reflexed. us Nargis Guy MD URINE ORDERABLES Final Result [facility] CLIA# [id number] [place] [address] documented in this encounter Visit Diagnoses Not on filedocumented in this encounter
--- OUTSIDE RECORDS SUMMARY | 2025-08-29 14:33 | XMS_ITS | Encounter Summary ---
Author Organization [facility] Address [address] [place] [address] Care Team Providers Care Pad Tufter Name Role Phone Unavailable Primary Care Provider Unavailabl e Encounter Details Date Type Department Care Team (Late st Contact Info) Description 06/18/2021 Lab Requisition [facility] Laboratory Services [address] [place] [address] [place] [address] [place] [address] Social History Tobacco Use Types [...] RATE (06/18/2021 4:15 AM CDT) Pathologist [facility] ESR (SEDIMENTATION RATE) 51(H) 0 - 30 mm/Hr 06/18/2021 10:14 AM CDT [facility] Blood Collection / Unknown 06/18/2021 4:15 AM CDT 06/18/2021 8:44 AM CDT Nargis Guy MD HEMATOLOGY ORDERABLES Final Resu lt Performing Organization Address City/[facility]/ZIP Co de Phone Number [facility] CLIA# [id number] [place], [place] [id number] * RETICULOCYTES (06/18/2021 4:15 AM CDT) Pathologist [facility] RETICULOCYTES 2.0 0.4 - 2.0 % 06/18/2021 8:52 AM CDT [facility] IMMATURE RETIC FRACTION 0.6 % 06/18/2021 8:52 AM CDT [facility] RETICULOCYTE, ABSOLUTE 0.0651 0.0250 - 0.1480 10e6/uL 06/18/2021 8:52 AM CDT [facility] Blood Collection / Unknown 06/18/2021 4:15 AM CDT 06/18/2021 8:44 AM CDT Nargis Guy MD HEMATOLOGY ORDERABLES Final Resu lt Performing Organization Address City/[facility]/ZIP Co de Phone Number [facility] CLIA# [id number] [place] [address] * (ABNORMAL) PREALBUMIN (06/18/2021 4:15 AM CDT) PREALBUMIN 14(L) 20 - 40 mg/dL 06/18/2021 11:37 AM CDT [facility] Blood Collection / Unknown 06/18/2021 4:15 AM CDT 06/18/2021 8:15 AM CDT Nargis Guy MD CHEMISTRY ORDERABLES Final Resul t [facility] CLIA# [id number] [address] [place] [address] * (ABNORMAL) IRON, TIBC, AND PERCENT SATURATION (06/18/2021 4:15 AM CDT) IRON 34(L) 37 - 145 ug/dL 06/18/2021 8:54 AM CDT [facility] TIBC 146(L) 265 - 497 ug/dL 06/18/2021 8:54 AM CDT [facility] IRON % SATURATION 23 20 - 55 % 06/18/2021 8:54 AM CDT [facility] Blood Collection / Unknown 06/18/2021 4:15 AM CDT 06/18/2021 8:18 AM CDT Nargis Guy MD CHEMISTRY ORDERABLES Final Resul t [facility] CLIA# [id number] [place] [address] * (ABNORMAL) C-REACTIVE PROTEIN (06/18/2021 4:15 AM CDT) CRP 51.3(H) <5.0 mg/L 06/18/2021 8:50 AM CDT [facility] Blood Collection / Unknown 06/18/2021 4:15 AM CDT 06/18/2021 8:18 AM CDT Nargis Guy MD CHEMISTRY ORDERABLES Final Resul t [facility] CLIA# [id number] [place] [address] * (ABNORMAL) CBC WITH DIFFERENTIAL (06/18/2021 4:15 AM CDT) [facility] WBC 7.9 4.5 - 10.5 K/uL 06/18/2021 8:52 AM CDT [facility] RBC 3.30(L) 3.90 - 4.90 M/uL 06/18/2021 8:52 AM CDT [facility] HEMOGLOBIN 9.0(L) 11.8 - 14.8 g/dL 06/18/2021 8:52 AM CDT [facility] HEMATOCRIT 28.2(L) 35.5 - 44.0 % 06/18/2021 8:52 AM CDT [facility] MCV 85.3 82.0 - 99.0 fL 06/18/2021 8:52 AM CDT [facility] MCH 27.3(L) 27.8 - 34.5 pg 06/18/2021 8:52 AM CDT [facility] MCHC 32.0(L) 32.5 - 35.5 g/dL 06/18/2021 8:52 AM CDT [facility] RDW 15.8(H) 11.5 - 14.5 % 06/18/2021 8:52 AM CDT [facility] PLATELETS 379 160 - 420 K/uL 06/18/2021 8:52 AM CDT [facility] MPV 7.4(L) 8.7 - 12.7 fL 06/18/2021 8:52 AM CDT [facility] NEUTROPHILS 59 % 06/18/2021 8:52 AM CDT [facility] LYMPHOCYTES 28 % 06/18/2021 8:52 AM CDT [facility] SERVICES [facility] MONOCYTES 8 % 06/18/2021 8:52 AM CDT [facility] SERVICES [facility] EOSINOPHILS 4 % 06/18/2021 8:52 AM CDT [facility] SERVICES [facility] BASOPHILS 1 % 06/18/2021 8:52 AM CDT [facility] NEUTROPHIL ABSOLUTE 4.70 1.90 - 7.00 K/uL 06/18/2021 8:52 AM CDT [facility] SERVICES [facility] LYMPHOCYTE ABSOLUTE 2.20 0.70 - 4.50 K/uL 06/18/2021 8:52 AM CDT [facility] SERVICES [facility] MONOCYTE ABSOLUTE 0.70 0.10 - 1.30 K/uL 06/18/2021 8:52 AM CDT [facility] SERVICES [facility] EOSINOPHIL ABSOLUTE 0.30 0.00 - 0.70 K/uL 06/18/2021 8:52 AM CDT [facility] SERVICES [facility] BASOPHILS ABSOLUTE 0.00 0.00 - 0.20 K/uL 06/18/2021 8:52 AM CDT [facility] Blood Collection / Unknown 06/18/2021 4:15 AM CDT 06/18/2021 8:44 AM CDT us Nargis Guy MD HEMATOLOGY ORDERABLES Final Resu lt [facility] CLIA# [id number] [place] [address] * (ABNORMAL) COMPREHENSIVE METABOLIC PANEL (06/18/2021 4:15 AM CDT) SODIUM 140 136 - 145 mmol/L 06/18/2021 8:50 AM CDT [facility] POTASSIUM 3.7 3.4 - 5.1 mmol/L 06/18/2021 8:50 AM CDT [facility] CHLORIDE 105 98 - 107 mmol/L 06/18/2021 8:50 AM [facility] CO2 23 22 - 29 mmol/L 06/18/2021 8:50 AM [facility] CALCIUM 8.6 8.6 - 10.4 mg/dL 06/18/2021 8:50 AM [facility] BUN 14 6 - 20 mg/dL 06/18/2021 8:50 AM [facility] CREATININE 1.10(H) 0.51 - 0.95 mg/dL 06/18/2021 8:50 AM [facility] GLUCOSE 98 74 - 99 mg/dL 06/18/2021 8:50 AM [facility] TOTAL PROTEIN 5.7(L) 6.3 - 8.7 g/dL 06/18/2021 8:50 AM [facility] ALBUMIN 2.4(L) 3.5 - 5.2 g/dL 06/18/2021 8:50 AM [facility] BILIRUBIN TOTAL 0.2(L) 0.3 - 1.2 mg/dL 06/18/2021 8:50 AM [facility] ALKALINE PHOSPHATASE 114 40 - 150 U/L 06/18/2021 8:50 AM [facility] AST 25 0 - 33 U/L 06/18/2021 8:50 AM [facility] ALT 23 0 - 33 U/L 06/18/2021 8:50 AM [facility] GFR 51 mL/min/1.7 3 sq meter 06/18/2021 8:50 AM [facility] [...] 3 sq meter 06/18/2021 8:50 AM CDT [facility] SERVICES [facility] ANION GAP 12 8 - 16 mmol/L 06/18/2021 8:50 AM CDT [facility] Blood Collection / Unknown 06/18/2021 4:15 AM CDT 06/18/2021 8:18 AM CDT us Nargis Guy MD CHEMISTRY ORDERABLES Final Resul t [facility] CLIA# [id number] [place] [address] documented in this encounter Visit Diagnoses Not on filedocumented in this encounter
--- OUTSIDE RECORDS SUMMARY | 2025-08-29 14:33 | XMS_ITS | Encounter Summary ---
Author Organization [facility] Address [address] [place] [address] Care Team Providers Care Station Engineer Chief Name Role Phone Unavailable Primary Care Provider Unavailabl e Encounter Details Date Type Department Care Team (Late st Contact Info) Description 05/12/2021 Lab Requisition [facility] Laboratory Services [address] [place] [address] [place] [address] [place] [address] Social History Tobacco Use Types [...] ) HAKEEM MCG/ML 05/13/2021 2:10 PM CDT [facility] Urine URINE SPECIMEN OBTAINED BY CLEAN CATCH PROCEDURE / Unknown Collection / Unknown 05/11/2021 7:53 PM CDT 05/12/2021 10:42 AM CDT Nargis Guy MD MICROBIOLOGY - GENERAL ORDERABLE S Final Result [facility] CLIA# [id number] [address] [facility] [address] [place], [place] [address] * (ABNORMAL) URINALYSIS WITH REFLEX CULTURE (05/11/2021 7:53 PM CDT) COLOR UA Pale Yellow Pale to Dark Yellow 05/12/2021 10:42 AM CDT [facility] [place] CLARITY UA Slightly Cloudy(A) Clear 05/12/2021 10:42 AM CDT [facility] [place] SPECIFIC GRAVITY UA 1.015 1.003 - 1.035 05/12/2021 10:42 AM CDT [facility] [place] PH UA 6.0 5.0 - 8.0 05/12/2021 10:42 AM CDT [facility] [place] LEUKOCYTE ESTERASE UA 3+(A) Negative 05/12/2021 10:42 AM CDT [facility] [place] NITRITE UA Negative Negative 05/12/2021 10:42 AM CDT [facility] [place] PROTEIN UA Negative Negative 05/12/2021 10:42 AM CDT [facility] [place] GLUCOSE UA Negative Negative 05/12/2021 10:42 AM CDT [facility] [place] KETONES UA Negative Negative 05/12/2021 10:42 AM CDT [facility] [place] UROBILINOGEN UA Normal <2.0 mg/dL 10:42 AM CDT [facility] [place] BILIRUBIN UA Negative Negative 05/12/2021 10:42 AM CDT [facility] [place] BLOOD UA Negative Negative 05/12/2021 10:42 AM CDT [facility] WBC UA 11-25(A) 0 - 2 /hpf 05/12/2021 10:42 AM CDT [facility] RBC UA 6-10(A) 0 - 2 /hpf 05/12/2021 10:42 AM CDT [facility] BACTERIA UA 1+(A) Negative /hpf 05/12/2021 10:42 AM CDT [facility] EPITHELIAL CELLS, URINE 0-5 0 - 5 /hpf 05/12/2021 10:42 AM CDT [facility] HYALINE CAST None Seen None Seen, 0-2 /lpf 05/12/2021 10:42 AM CDT [facility] YEAST, BUDD[place] Present(A) Absent 05/12/2021 10:42 AM CDT [facility] Urine URINE SPECIMEN OBTAINED BY CLEAN CATCH PROCEDURE / Unknown Collection / Unknown 05/11/2021 7:53 PM CDT 05/12/2021 10:22 AM CDT Narrative [facility] - 05/12/2021 10:42 AM CDT Based on results, a urine culture has been reflexed. us Nargis Guy MD URINE ORDERABLES Final Result [facility] CLIA# [id number] [place] [address] documented in this encounter Visit Diagnoses Not on filedocumented in this encounter
--- OUTSIDE RECORDS SUMMARY | 2025-08-29 14:33 | XMS_ITS | Encounter Summary ---
Author Organization [facility] Address [address] [place] [address] Care Team Providers Care Apparel Pattern Maker Name Role Phone Unavailable Primary Care Provider Unavailabl e Encounter Details Date Type Department Care Team (Late st Contact Info) Description 06/11/2021 Lab Requisition [facility] Laboratory Services [address] [place] [address] [place] [address] [place] [address] Social History Tobacco Use Types [...] - 40 mg/dL 06/11/2021 5:53 PM CDT [facility] Blood Collection / Unknown 06/11/2021 11:20 AM CDT 06/11/2021 1:21 PM CDT Nargis Guy MD CHEMISTRY ORDERABLES Final Resul t [facility] CLIA# [id number] [address] [facility] [place] [address] * (ABNORMAL) CBC WITH DIFFERENTIAL (06/11/2021 11:20 AM CDT) Pathologist [facility] WBC 8.8 4.5 - 10.5 K/uL 06/11/2021 1:38 PM CDT [facility] RBC 3.64(L) 3.90 - 4.90 M/uL 06/11/2021 1:38 PM CDT [facility] HEMOGLOBIN 10.1(L) 11.8 - 14.8 g/dL 06/11/2021 1:38 PM CDT [facility] HEMATOCRIT 31.5(L) 35.5 - 44.0 % 06/11/2021 1:38 PM CDT [facility] MCV 86.7 82.0 - 99.0 fL 06/11/2021 1:38 PM CDT [facility] MCH 27.9 27.8 - 34.5 pg 06/11/2021 1:38 PM CDT [facility] MCHC 32.2(L) 32.5 - 35.5 g/dL 06/11/2021 1:38 PM CDT [facility] RDW 15.8(H) 11.5 - 14.5 % 06/11/2021 1:38 PM CDT [facility] PLATELETS 470(H) 160 - 420 K/uL 06/11/2021 1:38 PM CDT [facility] MPV 8.0(L) 8.7 - 12.7 fL 06/11/2021 1:38 PM CDT [facility] NEUTROPHILS 62 % 06/11/2021 1:38 PM CDT [facility] LYMPHOCYTES 23 % 06/11/2021 1:38 PM CDT [facility] MONOCYTES 9 % 06/11/2021 1:38 PM CDT [facility] EOSINOPHILS 5 % 06/11/2021 1:38 PM CDT [facility] BASOPHILS 1 % 06/11/2021 1:38 PM CDT [facility] NEUTROPHIL ABSOLUTE 5.40 1.90 - 7.00 K/uL 06/11/2021 1:38 PM CDT [facility] LYMPHOCYTE ABSOLUTE 2.00 0.70 - 4.50 K/uL 06/11/2021 1:38 PM CDT [facility] MONOCYTE ABSOLUTE 0.80 0.10 - 1.30 K/uL 06/11/2021 1:38 PM CDT [facility] SERVICES [facility] EOSINOPHIL ABSOLUTE 0.50 0.00 - 0.70 K/uL 06/11/2021 1:38 PM CDT [facility] BASOPHILS ABSOLUTE 0.10 0.00 - 0.20 K/uL 06/11/2021 1:38 PM CDT [facility] Blood Collection / Unknown 06/11/2021 11:20 AM CDT 06/11/2021 1:21 PM CDT us Nargis Guy MD HEMATOLOGY ORDERABLES Final Resu lt [facility] CLIA# [id number] [place] [address] * (ABNORMAL) COMPREHENSIVE METABOLIC PANEL (06/11/2021 11:20 AM CDT) SODIUM 140 136 - 145 mmol/L 06/11/2021 1:52 PM CDT [facility] POTASSIUM 4.1 3.4 - 5.1 mmol/L 06/11/2021 1:52 PM [facility] CHLORIDE 104 98 - 107 mmol/L 06/11/2021 1:52 PM [facility] CO2 24 22 - 29 mmol/L 06/11/2021 1:52 PM [facility] CALCIUM 8.6 8.6 - 10.4 mg/dL 06/11/2021 1:52 PM [facility] BUN 10 6 - 20 mg/dL 06/11/2021 1:52 PM [facility] CREATININE 0.94 0.51 - 0.95 mg/dL 06/11/2021 1:52 PM [facility] GLUCOSE 157(H) 74 - 99 mg/dL 06/11/2021 1:52 PM [facility] TOTAL PROTEIN 6.1(L) 6.3 - 8.7 g/dL 06/11/2021 1:52 PM [facility] ALBUMIN 2.7(L) 3.5 - 5.2 g/dL 06/11/2021 1:52 PM [facility] BILIRUBIN TOTAL <0.2(L) 0.3 - 1.2 mg/dL 06/11/2021 1:52 PM [facility] ALKALINE PHOSPHATASE 155(H) 40 - 150 U/L 06/11/2021 1:52 PM [facility] AST 45(H) 0 - 33 U/L 06/11/2021 1:52 PM [facility] ALT 44(H) 0 - 33 U/L 06/11/2021 1:52 PM [facility] GFR >60 mL/min/1.7 3 sq meter 06/11/2021 1:52 PM [facility] Comment: eGFR [...] 3 sq meter 06/11/2021 1:52 PM CDT [facility] ANION GAP 12 8 - 16 mmol/L 06/11/2021 1:52 PM CDT [facility] Blood Collection / Unknown 06/11/2021 11:20 AM CDT 06/11/2021 1:21 PM CDT us Nargis uGy MD CHEMISTRY ORDERABLES Final Resul t [facility] CLIA# [id number] [place] [address] documented in this encounter Visit Diagnoses Not on filedocumented in this encounter
--- OUTSIDE RECORDS SUMMARY | 2025-08-29 14:33 | XMS_ITS | Encounter Summary ---
Author Organization [facility] Address [address] [place] [address] Care Team Providers Care Job Setter Honing Name Role Phone Unavailable Primary Care Provider Unavailabl e Encounter Details Date Type Department Care Team (Late st Contact Info) Description 06/11/2021 Lab Requisition [facility] Laboratory Services [address] [place] [address] [place] [address] [place] [address] Social History Tobacco Use Types [...]
--- OUTSIDE RECORDS SUMMARY | 2025-08-29 14:33 | XMS_ITS | Encounter Summary ---
Author Organization [facility] Address 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 Name Role Phone Unavailable Primary Care Provider Unavailabl e Encounter Details Date Type Department Care Team (Late st Contact Info) Description 05/14/2021 Lab Requisition [facility] Laboratory Services [address] [place] [address] [place] [address] [place] [address] Social History Tobacco Use Types [...] - 10.5 K/uL 05/14/2021 6:03 AM CDT [facility] RBC 2.60(L) 3.90 - 4.90 M/uL 05/14/2021 6:03 AM [facility] HEMOGLOBIN 7.6(L) 11.8 - 14.8 g/dL 05/14/2021 6:03 AM [facility] HEMATOCRIT 22.9(L) 35.5 - 44.0 % 05/14/2021 6:03 AM [facility] MCV 88.1 82.0 - 99.0 fL 05/14/2021 6:03 AM [facility] MCH 29.3 27.8 - 34.5 pg 05/14/2021 6:03 AM [facility] MCHC 33.3 32.5 - 35.5 g/dL 05/14/2021 6:03 AM [facility] RDW 15.0(H) 11.5 - 14.5 % 05/14/2021 6:03 AM CDT [facility] PLATELETS 168 160 - 420 K/uL 05/14/2021 6:03 AM [facility] MPV 8.5(L) 8.7 - 12.7 fL 05/14/2021 6:03 AM CDT [facility] NEUTROPHILS 56 % 05/14/2021 6:03 AM CDT [facility] LYMPHOCYTES 26 % 05/14/2021 6:03 AM CDT [facility] MONOCYTES 13 % 05/14/2021 6:03 AM CDT [facility] EOSINOPHILS 5 % 05/14/2021 6:03 AM CDT [facility] BASOPHILS 1 % 05/14/2021 6:03 AM CDT [facility] NEUTROPHIL ABSOLUTE 3.70 1.90 - 7.00 K/uL 05/14/2021 6:03 AM [facility] LYMPHOCYTE ABSOLUTE 1.70 0.70 - 4.50 K/uL 05/14/2021 6:03 AM CDT [facility] MONOCYTE ABSOLUTE 0.80 0.10 - 1.30 K/uL 05/14/2021 6:03 AM CDT [facility] - [facility] EOSINOPHIL ABSOLUTE 0.30 0.00 - 0.70 K/uL 05/14/2021 6:03 AM CDT [facility] BASOPHILS ABSOLUTE 0.10 0.00 - 0.20 K/uL 05/14/2021 6:03 AM CDT [facility] Blood BLOOD SPECIMEN / Unknown Collection / Unknown 05/14/2021 3:30 AM CDT 05/14/2021 5:27 AM CDT Nargis Guy MD HEMATOLOGY ORDERABLES Final Resu lt [facility] CLIA# [id number] [place] [address] * (ABNORMAL) BASIC METABOLIC PANEL (05/14/2021 3:30 AM CDT) Pathologist [facility] SODIUM 140 136 - 145 mmol/L 05/14/2021 6:38 AM CDT [facility] POTASSIUM 4.2 3.4 - 5.1 mmol/L 05/14/2021 6:38 AM CDT [facility] CHLORIDE 105 98 - 107 mmol/L 05/14/2021 6:38 AM CDT [facility] CO2 21(L) 22 - 29 mmol/L 05/14/2021 6:38 AM CDT [facility] CALCIUM 8.9 8.6 - 10.4 mg/dL 05/14/2021 6:38 AM CDT [facility] BUN 22(H) 6 - 20 mg/dL 05/14/2021 6:38 AM CDT [facility] CREATININE 2.50(H) 0.51 - 0.95 mg/dL 05/14/2021 6:38 AM CDT [facility] GLUCOSE 96 74 - 99 mg/dL 05/14/2021 6:38 AM CDT [facility] GFR 20 mL/min/1.7 3 sq meter 05/14/2021 6:38 AM CDT [facility] Comment: eGFR has not been [...] 3 sq meter 05/14/2021 6:38 AM CDT [facility] ANION GAP 14 8 - 16 mmol/L 05/14/2021 6:38 AM CDT [facility] Blood BLOOD SPECIMEN / Unknown Collection / Unknown 05/14/2021 3:30 AM CDT 05/14/2021 5:27 AM CDT us Nargis Guy MD CHEMISTRY ORDERABLES Final Resul t [facility] [employer] [facility] CLIA# [id number] [id number] documented in this encounter Visit Diagnoses Not on filedocumented in this encounter
--- OUTSIDE RECORDS SUMMARY | 2025-08-29 14:33 | XMS_ITS | Encounter Summary ---
Author Organization [facility] Address [address] [place] [address] Care Team Providers Care Grab Jack Man Name Role Phone Murali Silva MD Primary Care Provider [phone] Karime Aguilera RN [facility] Gurvinder Stephens MD Primary Care Provider [phone] Reason for Visit * Reason Onset Date Comments Update 05/06/2018 Encounter Details Date Type Department Care Team (Late st Contact Info) Description 05/06/2018 Telephone [facility] [address] [place] [address] Christy Khan MD [address] [address] Update Social History Tobacco Use Types Packs/Day [...] like a call back please. Pt callback #[phone] documented in this encounter Plan of Treatment Upcoming Encounters Date Type Department Care Team (Late st Contact Info) Description 09/06/2025 11:30 AM CDT Office Visit [facility] - BONING ROOM WORKER [address] [facility] [address] [place] [address] Christy Khan MD [address] [facility] [address] [place], [place] [id number] documented as of this encounter Visit Diagnoses Not on filedocumented in this encounter Care Teams Grab Jack Man Relationship Specialty Start Date End Date Murali Silva MD [address] [place] [address] PCP - General 03/03/18 12/31/21 Gurvinder Renteria MD [address] [facility] [address] [place] [address] PCP - General 01/01/22 Karime Aguilera RN 05/07/18 documented as of this encounter
--- OUTSIDE RECORDS SUMMARY | 2025-08-29 14:33 | XMS_ITS | Encounter Summary ---
Author Organization [facility] Address [address] [place] [address] Care Team Providers Care Freezing Room Worker Name Role Phone Unavailable Primary Care Provider Unavailabl e Encounter Details Date Type Department Care Team (Late st Contact Info) Description 06/04/2021 Lab Requisition [facility] Laboratory Services [address] [place] [address] [place] [address] [place] [address] Social History Tobacco Use Types [...] HEMATOLOGY ORDERABLES Final Resu lt [facility] CLIA# [id number] [place] [address] * (ABNORMAL) RETICULOCYTES (06/04/2021 4:55 AM CDT) [...] [facility] [place] [place] [id number] [place] [address] * (ABNORMAL) PREALBUMIN (06/04/2021 4:55 AM CDT) Pathologist [facility] PREALBUMIN 13(L) 20 - 40 mg/dL 06/04/2021 2:28 PM CDT [facility] Blood Collection / Unknown 06/04/2021 4:55 AM CDT 06/04/2021 9:42 AM CDT Nargis Guy MD CHEMISTRY ORDERABLES Final Resul t Performing Organization Address City/[facility]/ZIP Co de Phone Number [facility]# [id number] [address] [place] [address] * (ABNORMAL) IRON, TIBC, AND PERCENT SATURATION (06/04/2021 4:55 AM CDT) [facility] IRON 27(L) 37 - 145 ug/dL 06/04/2021 10:17 AM CDT [facility] TIBC 144(L) 265 - 497 ug/dL 06/04/2021 10:17 AM CDT [facility] IRON % SATURATION 19(L) 20 - 55 % 06/04/2021 10:17 AM CDT [facility] Blood Collection / Unknown 06/04/2021 4:55 AM CDT 06/04/2021 9:42 AM CDT Nargis Guy MD CHEMISTRY ORDERABLES Final Resul t [facility] [place] [place]# [id number] [place] [address] * HEMOGLOBIN A1C (06/04/2021 4:55 AM CDT) Pathologist [facility] HEMOGLOBIN A1C 5.5 <=5.6 % 06/04/2021 10:29 AM CDT [facility] EST. AVG GLUCOSE, A1C 111 mg/dL 06/04/2021 10:29 AM CDT [facility] Blood Collection / Unknown 06/04/2021 4:55 AM CDT 06/04/2021 10:10 AM CDT Narrative [facility] - 06/04/2021 10:29 AM CDT HGB A1C INTERPRETATION NORMAL: <5.7% PRE-DIABETES: 5.7 - 6.4% DIABETES: 6.5% OR GREATER Nargis Guy MD CHEMISTRY ORDERABLES Final Resul t [facility] CLIA# [id number] [place] [address] * (ABNORMAL) C-REACTIVE PROTEIN (06/04/2021 4:55 AM CDT) Pathologist [facility] CRP 99.3(H) <5.0 mg/L 06/04/2021 10:17 AM CDT [facility] Blood Collection / Unknown 06/04/2021 4:55 AM CDT 06/04/2021 9:42 AM CDT Nargis Guy MD CHEMISTRY ORDERABLES Final Resul t [facility] CLIA# [id number] [place] [address] * (ABNORMAL) CBC WITH DIFFERENTIAL (06/04/2021 4:55 AM CDT) WBC 5.7 4.5 - 10.5 K/uL 06/04/2021 9:49 AM CDT [facility] RBC 3.55(L) 3.90 - 4.90 M/uL 06/04/2021 9:49 AM CDT [facility] [employer] [facility] HEMOGLOBIN 10.2(L) 11.8 - 14.8 g/dL 06/04/2021 9:49 AM CDT [facility] SERVICES [facility] HEMATOCRIT 31.4(L) 35.5 - 44.0 % 06/04/2021 9:49 AM CDT [facility] SERVICES [facility] MCV 88.5 82.0 - 99.0 fL 06/04/2021 9:49 AM CDT [facility] SERVICES [facility] MCH 28.8 27.8 - 34.5 pg 06/04/2021 9:49 AM CDT [facility] SERVICES [facility] MCHC 32.6 32.5 - 35.5 g/dL 06/04/2021 9:49 AM CDT [facility] SERVICES [facility] RDW 15.5(H) 11.5 - 14.5 % 06/04/2021 9:49 AM CDT [facility] SERVICES [facility] PLATELETS 288 160 - 420 K/uL 06/04/2021 9:49 AM CDT [facility] SERVICES [facility] MPV 8.5(L) 8.7 - 12.7 fL 06/04/2021 9:49 AM CDT [facility] SERVICES [facility] NEUTROPHILS 53 % 06/04/2021 9:49 AM CDT [facility] SERVICES [facility] LYMPHOCYTES 33 % 06/04/2021 9:49 AM CDT [facility] SERVICES [facility] MONOCYTES 10 % 06/04/2021 9:49 AM CDT [facility] SERVICES [facility] EOSINOPHILS 4 % 06/04/2021 9:49 AM CDT [facility] SERVICES [facility] BASOPHILS 1 % 06/04/2021 9:49 AM CDT [facility] SERVICES [facility] NEUTROPHIL ABSOLUTE 3.00 1.90 - 7.00 K/uL 06/04/2021 9:49 AM CDT [facility] SERVICES [facility] LYMPHOCYTE ABSOLUTE 1.90 0.70 - 4.50 K/uL 06/04/2021 9:49 AM CDT [facility] SERVICES [facility] MONOCYTE ABSOLUTE 0.50 0.10 - 1.30 K/uL 06/04/2021 9:49 AM CDT [facility] SERVICES [facility] EOSINOPHIL ABSOLUTE 0.20 0.00 - 0.70 K/uL 06/04/2021 9:49 AM CDT [facility] BASOPHILS ABSOLUTE 0.10 0.00 - 0.20 K/uL 06/04/2021 9:49 AM CDT [facility] Blood Collection / Unknown 06/04/2021 4:55 AM CDT 06/04/2021 9:41 AM CDT Nargis Guy MD HEMATOLOGY ORDERABLES Final Resu lt [facility] CLIA# [id number] [address] [place] [address] * (ABNORMAL) COMPREHENSIVE METABOLIC PANEL (06/04/2021 4:55 AM CDT) SODIUM 143 136 - 145 mmol/L 06/04/2021 10:17 AM CDT [facility] POTASSIUM 4.0 3.4 - 5.1 mmol/L 06/04/2021 10:17 AM CDT [facility] [employer] [facility] CHLORIDE 107 98 - 107 mmol/L 06/04/2021 10:17 AM CDT [facility] CO2 24 22 - 29 mmol/L 06/04/2021 10:17 AM T [facility] CALCIUM 8.3(L) 8.6 - 10.4 mg/dL 06/04/2021 10:17 AM CDT [facility] BUN 8 6 - 20 mg/dL 06/04/2021 10:17 AM CDT [facility] CREATININE 1.01(H) 0.51 - 0.95 mg/dL 06/04/2021 10:17 AM CDT [facility] GLUCOSE 105(H) 74 - 99 mg/dL 06/04/2021 10:17 AM T [facility] TOTAL PROTEIN 5.7(L) 6.3 - 8.7 g/dL 06/04/2021 10:17 AM CDT [facility] ALBUMIN 2.5(L) 3.5 - 5.2 g/dL 06/04/2021 10:17 AM CDT [facility] BILIRUBIN TOTAL 0.2(L) 0.3 - 1.2 [...] CHEMISTRY ORDERABLES Final Resul t [facility] CLIA# [id number] [place] [address] documented in this encounter Visit Diagnoses Not on filedocumented in this encounter
--- OUTSIDE RECORDS SUMMARY | 2025-08-29 14:33 | XMS_ITS | Encounter Summary ---
Author Organization [facility] Address [address] [place] [address] Care Team Providers Care Cigar Head Puncher Name Role Phone Unavailable Primary Care Provider Unavailabl e Encounter Details Date Type Department Care Team (Late st Contact Info) Description 05/26/2021 Lab Requisition [facility] Laboratory Services [address] [place] [address] [facility], External Provider [address] [place] [address] Social History Tobacco Use Types Packs/Day Years [...] - 37.1 seconds 05/26/2021 7:19 AM CDT [facility] Blood Collection / Unknown 05/26/2021 4:30 AM CDT 05/26/2021 6:22 AM CDT External Provider [facility] HEMATOLOGY ORDERABLES Fin al Result [facility] [id number] [place] [address] * PROTIME-INR (05/26/2021 4:30 AM CDT) PROTIME 13.4 11.5 - 14.7 Seconds 05/26/2021 7:19 AM CDT [facility] INR 1.0 0.9 - 1.1 05/26/2021 7:19 AM CDT [facility] [employer] [facility] Blood Collection / Unknown 05/26/2021 4:30 AM CDT 05/26/2021 6:22 AM CDT Result [facility] External Provider [facility] HEMATOLOGY ORDERABLES Fin al Result Performing Organization Address City/[facility]/ZIP Co de Phone Number [facility]# [id number] [place] [address] * (ABNORMAL) PREALBUMIN (05/26/2021 4:30 AM CDT) PREALBUMIN 17(L) 20 - 40 mg/dL 05/26/2021 12:53 PM CDT [facility] Blood Collection / Unknown 05/26/2021 4:30 AM CDT 05/26/2021 6:22 AM CDT External Provider [facility] CHEMISTRY ORDERABLES Jennie l Result [facility] CLIA# [id number] [address] [facility] [place] [address] * (ABNORMAL) CBC WITH DIFFERENTIAL (05/26/2021 4:30 AM CDT) WBC 10.1 4.5 - 10.5 K/uL 05/26/2021 7:23 AM CDT [facility] RBC 3.06(L) 3.90 - 4.90 M/uL 05/26/2021 7:23 AM CDT [facility] HEMOGLOBIN 8.8(L) 11.8 - 14.8 g/dL 05/26/2021 7:23 AM CDT [facility] HEMATOCRIT 27.2(L) 35.5 - 44.0 % 05/26/2021 7:23 AM CDT [facility] MCV 89.0 82.0 - 99.0 fL 05/26/2021 7:23 AM CDT [facility] MCH 28.8 27.8 - 34.5 pg 05/26/2021 7:23 AM CDT [facility] MCHC 32.3(L) 32.5 - 35.5 g/dL 05/26/2021 7:23 AM CDT [facility] RDW 16.0(H) 11.5 - 14.5 % 05/26/2021 7:23 AM CDT [facility] PLATELETS 399 160 - 420 K/uL 05/26/2021 7:23 AM CDT [facility] MPV 7.8(L) 8.7 - 12.7 fL 05/26/2021 7:23 AM CDT [facility] NEUTROPHILS 71 % 05/26/2021 7:23 AM CDT [facility] LYMPHOCYTES 18 % 05/26/2021 7:23 AM CDT [facility] MONOCYTES 8 % 05/26/2021 7:23 AM CDT [facility] EOSINOPHILS 3 % 05/26/2021 7:23 AM CDT [facility] BASOPHILS 1 % 05/26/2021 7:23 AM CDT [facility] NEUTROPHIL ABSOLUTE 7.20(H) 1.90 - 7.00 K/uL 05/26/2021 7:23 AM CDT [facility] LYMPHOCYTE ABSOLUTE 1.90 0.70 - 4.50 K/uL 05/26/2021 7:23 AM CDT [facility] MONOCYTE ABSOLUTE 0.80 0.10 - 1.30 K/uL 05/26/2021 7:23 AM CDT [facility]ORATORY SERVICES [facility] EOSINOPHIL ABSOLUTE 0.30 0.00 - 0.70 K/uL 05/26/2021 7:23 AM CDT [facility] SERVICES [facility] BASOPHILS ABSOLUTE 0.00 0.00 - 0.20 K/uL 05/26/2021 7:23 AM CDT [facility] Blood Collection / Unknown 05/26/2021 4:30 AM CDT 05/26/2021 6:22 AM CDT us External Provider [facility] HEMATOLOGY ORDERABLES Fin al Result [facility] CLIA# [id number] [address] [place] [address] * (ABNORMAL) COMPREHENSIVE METABOLIC PANEL (05/26/2021 4:30 AM CDT) SODIUM 144 136 - 145 mmol/L 05/26/2021 7:23 AM CDT [facility] POTASSIUM 3.7 3.4 - 5.1 mmol/L 05/26/2021 7:23 AM CDT [facility] CHLORIDE 109(H) 98 - 107 mmol/L 05/26/2021 7:23 AM CDT [facility] CO2 24 22 - 29 mmol/L 05/26/2021 7:23 AM CDT [facility] CALCIUM 8.3(L) 8.6 - 10.4 mg/dL 05/26/2021 7:23 AM [facility] BUN 19 6 - 20 mg/dL 05/26/2021 7:23 AM [facility] CREATININE 1.18(H) 0.51 - 0.95 mg/dL 05/26/2021 7:23 AM [facility] GLUCOSE 171(H) 74 - 99 mg/dL 05/26/2021 7:23 AM [facility] TOTAL PROTEIN 5.9(L) 6.3 - 8.7 g/dL 05/26/2021 7:23 AM [facility] ALBUMIN 2.6(L) 3.5 - 5.2 g/dL 05/26/2021 7:23 AM [facility] BILIRUBIN TOTAL 0.2(L) 0.3 - 1.2 mg/dL 05/26/2021 7:23 AM [facility] ALKALINE PHOSPHATASE 112 40 - 150 U/L 05/26/2021 7:23 AM [facility] AST 35(H) 0 - 33 U/L 05/26/2021 7:23 AM [facility] ALT 34(H) 0 - 33 U/L 05/26/2021 7:23 AM [facility] GFR 47 mL/min/1.7 3 sq meter 05/26/2021 7:23 AM [facility] Comment: eGFR has [...] mL/min/1.7 3 sq meter 05/26/2021 7:23 AM [facility] ANION GAP 11 8 - 16 mmol/L 05/26/2021 7:23 AM CDT [facility] SERVICES - [facility] Blood Collection / Unknown 05/26/2021 4:30 AM CDT 05/26/2021 6:22 AM CDT us External Provider [facility] CHEMISTRY ORDERABLES Jennie l Result [facility] SERVICES - [facility] CLIA# [id number] [address] [place] [address] documented in this encounter Visit Diagnoses Not on filedocumented in this encounter
--- OUTSIDE RECORDS SUMMARY | 2025-08-29 14:33 | XMS_ITS | Encounter Summary ---
Author Organization [facility] Address [address] [place] [address] Care Team Providers Care Mechanical Striper Name Role Phone Unavailable Primary Care Provider Unavailabl e Encounter Details Date Type Department Care Team (Late st Contact Info) Description 05/10/2021 Lab Requisition [facility] Laboratory Services [address] [place] [address] [place] [address] [place] [address] Social History Tobacco Use Types [...] - 37.1 seconds 05/10/2021 9:45 AM CDT [facility] Blood Collection / Unknown 05/10/2021 6:11 AM CDT 05/10/2021 9:23 AM CDT Nargis Guy MD HEMATOLOGY ORDERABLES Final Resu lt [facility]# [id number] [place] [address] * PROTIME-INR (05/10/2021 6:11 AM CDT) Pathologist [facility] PROTIME 14.4 11.5 - 14.7 Seconds 05/10/2021 9:45 AM CDT [facility] [place] [facility] INR 1.1 0.9 - 1.1 05/10/2021 9:45 AM CDT [facility] Blood Collection / Unknown 05/10/2021 6:11 AM CDT 05/10/2021 9:23 AM CDT Nargis Guy MD HEMATOLOGY ORDERABLES Final Resu lt [facility]# [id number] [address] [place] [address] * (ABNORMAL) PREALBUMIN (05/10/2021 6:11 AM CDT) Pathologist [facility] PREALBUMIN 13(L) 20 - 40 mg/dL 05/10/2021 10:20 AM CDT [facility] Blood Collection / Unknown 05/10/2021 6:11 AM CDT 05/10/2021 9:23 AM CDT Nargis Guy MD CHEMISTRY ORDERABLES Final Resul t [facility] CLIA# [id number] [place] [address] * (ABNORMAL) CBC WITH DIFFERENTIAL (05/10/2021 6:11 AM CDT) WBC 9.2 4.5 - 10.5 K/uL 05/10/2021 9:31 AM CDT [facility] RBC 2.81(L) 3.90 - 4.90 M/uL 05/10/2021 9:31 AM CDT [facility] HEMOGLOBIN 8.3(L) 11.8 - 14.8 g/dL 05/10/2021 9:31 AM CDT [facility] HEMATOCRIT 25.0(L) 35.5 - 44.0 % 05/10/2021 9:31 AM CDT [facility] [place] [facility] MCV 88.9 82.0 - 99.0 fL 05/10/2021 9:31 AM CDT [facility] MCH 29.7 27.8 - 34.5 pg 05/10/2021 9:31 AM CDT [facility] MCHC 33.4 32.5 - 35.5 g/dL 05/10/2021 9:31 AM CDT [facility] RDW 14.7(H) 11.5 - 14.5 % 05/10/2021 9:31 AM CDT [facility] PLATELETS 421(H) 160 - 420 K/uL 05/10/2021 9:31 AM CDT [facility] MPV 7.9(L) 8.7 - 12.7 fL 05/10/2021 9:31 AM CDT [facility] NEUTROPHILS 68 45 - 70 % 05/10/2021 9:31 AM CDT [facility] LYMPHOCYTES 19 16 - 45 % 05/10/2021 9:31 AM CDT [facility] LABORATORY SERVICES - [facility] MONOCYTES 10 3 - 13 % 05/10/2021 9:31 AM CDT [facility] LABORATORY SERVICES - [facility] EOSINOPHILS 3 0 - 7 % 05/10/2021 9:31 AM CDT [facility] LABORATORY SERVICES - [facility] BASOPHILS 1 0 - 2 % 05/10/2021 9:31 AM CDT [facility] LABORATORY SERVICES [facility] NEUTROPHIL ABSOLUTE 6.20 1.90 - 7.00 K/uL 05/10/2021 9:31 AM CDT [facility] LABORATORY SERVICES - [facility] LYMPHOCYTE ABSOLUTE 1.70 0.70 - 4.50 K/uL 05/10/2021 9:31 AM CDT [facility] LABORATORY SERVICES - [facility] MONOCYTE ABSOLUTE 0.90 0.10 - 1.30 K/uL 05/10/2021 9:31 AM CDT [facility] LABORATORY SERVICES - [facility] EOSINOPHIL ABSOLUTE 0.20 0.00 - 0.70 K/uL 05/10/2021 9:31 AM CDT [facility] LABORATORY SERVICES [facility] BASOPHILS ABSOLUTE 0.10 0.00 - 0.20 K/uL 05/10/2021 9:31 AM CDT [facility] LABORATORY SERVICES [facility] Blood Collection / Unknown 05/10/2021 6:11 AM CDT 05/10/2021 9:23 AM CDT us Nargis Guy MD HEMATOLOGY ORDERABLES Final Resu lt [facility] CLIA# [id number] [place] [address] * (ABNORMAL) COMPREHENSIVE METABOLIC PANEL (05/10/2021 6:11 AM CDT) SODIUM 143 136 - 145 mmol/L 05/10/2021 10:18 AM CDT [facility] LABOR[facility]ORY [facility] POTASSIUM 4.2 3.4 - 5.1 mmol/L 05/10/2021 10:18 AM CDT [facility] LABORATORY [facility] CHLORIDE 109(H) 98 - 107 mmol/L 05/10/2021 10:18 AM CDT [facility] CO2 20(L) 22 - 29 mmol/L 05/10/2021 10:18 AM [facility] CALCIUM 8.5(L) 8.6 - 10.4 mg/dL 05/10/2021 10:18 AM [facility] BUN 20 6 - 20 mg/dL 05/10/2021 10:18 AM [facility] CREATININE 2.50(H) 0.51 - 0.95 mg/dL 05/10/2021 10:18 AM [facility] GLUCOSE 96 74 - 99 mg/dL 05/10/2021 10:18 [facility] TOTAL PROTEIN 6.6 6.3 - 8.7 g/dL 05/10/2021 10:18 [facility] ALBUMIN 2.6(L) 3.5 - 5.2 g/dL 05/10/2021 10:18 [facility] BILIRUBIN TOTAL 0.2(L) 0.3 - 1.2 mg/dL 05/10/2021 10:18 [facility] ALKALINE PHOSPHATASE 94 40 - 150 U/L 05/10/2021 10:18 [facility] AST 24 0 - 33 U/L 05/10/2021 10:18 [facility] ALT 17 0 - 33 U/L 05/10/2021 10:18 [facility] GFR 20 mL/min/1.7 3 sq meter 05/10/2021 10:18 [facility] Comment: [...] 3 sq meter 05/10/2021 10:18 AM CDT [facility] ANION GAP 14 8 - 16 mmol/L 05/10/2021 10:18 AM CDT [facility] Blood Collection / Unknown 05/10/2021 6:11 AM CDT 05/10/2021 9:23 AM CDT us Nargis Guy MD CHEMISTRY ORDERABLES Final Resul t [facility] CLIA# [id number] [place] [address] documented in this encounter Visit Diagnoses Not on filedocumented in this encounter
--- OUTSIDE RECORDS SUMMARY | 2025-08-29 14:33 | XMS_ITS | Encounter Summary ---
Author Organization [facility] Address [address] [place] [address] Care Team Providers Care Sustainable Design Coordinator Name Role Phone Karime Aguilera RN, Haresh K MD Primary Care Provider [phone] Reason for Visit * Reason Onset Date Comments Nurse Only 01/18/2025 Encounter Details Date Type Department Care Team (Late st Contact Info) Description 01/18/2025 Telephone [facility] [address] [place] [address] Christy Khan MD [address] [facility] [place] [address] Nurse Only Social History Tobacco [...] her to give our office a call. TIONSHIP COUNSELOR * Telephone Encounter - Tito Dunaway - 01/18/2025 1:04 PM CST Muna returning missed call for Juliann and request a nurse calls Juliann phone Muna will be occupied with another patient and wont be able to answer TIONSHIP COUNSELOR documented in this encounter Plan of Treatment Upcoming Encounters Date Type Department Care Team (Late st Contact Info) Description 09/06/2025 11:30 AM CDT Office Visit [facility] - [facility] [address] [place] [phone] Christy Khan MD [address] [facility] [address] [place], [place] [id number] documented as of this encounter Visit Diagnoses Not on filedocumented in this encounter Care Teams Sustainable Design Coordinator Relationship Specialty Start Date End Date Gurvinder Renteria MD [address] [place] [address] PCP - General 01/01/22 Karime Aguilera RN 05/07/18 documented as of this encounter
--- OUTSIDE RECORDS SUMMARY | 2025-08-29 14:33 | XMS_ITS | Encounter Summary ---
Author Organization [facility] Address [address] [place] [address] Care Team Providers Care Joy Operator Helper Name Role Phone Unavailable Primary Care Provider Unavailabl e Encounter Details Date Type Department Care Team (Late st Contact Info) Description 05/28/2021 Lab Requisition [facility] Laboratory Services [address] [place] [address] [place] [address] [place] [address] Social History Tobacco Use Types [...] ORDERABLES Final Resul t Performing Organization Address [facility] de Phone Number [facility] CLIA# [id number] [place] [address] * (ABNORMAL) VITAMIN D 25 HYDROXY (05/28/2021 5:00 AM CDT) VITAMIN D TOTAL (25OH) 14(L) 30 - 100 ng/mL 05/28/2021 12:03 PM CDT [facility] Blood Collection / Unknown 05/28/2021 5:00 AM CDT 05/28/2021 11:07 AM CDT Narrative [facility] - 05/28/2021 12:03 PM CDT Interpretive Data Chart: Deficient: 0 - 20 ng/mL Insufficient: 21 - 29 ng/mL Sufficient: 30 - 100 ng/mL Increased Risk of Hypercalciuria: >100 ng/ml Toxic: >150 ng/ml Nargis Guy MD CHEMISTRY ORDERABLES Final Resul t Performing Organization Address [facility] Co de Phone Number [facility] CLIA# [id number] [place] [address] * (ABNORMAL) CBC WITH DIFFERENTIAL (05/28/2021 5:00 AM CDT) Pathologist [facility] WBC 8.2 4.5 - 10.5 K/uL 05/28/2021 11:15 AM CDT [facility] [employer] [facility] RBC 3.22(L) 3.90 - 4.90 M/uL 05/28/2021 11:15 AM CDT [facility] [employer] [facility] HEMOGLOBIN 9.2(L) 11.8 - 14.8 g/dL 05/28/2021 11:15 AM CDT [facility] LABORATORY SERVICES - [facility] HEMATOCRIT 28.5(L) 35.5 - 44.0 % 05/28/2021 11:15 AM CDT [facility] LABORATORY SERVICES - [facility] MCV 88.3 82.0 - 99.0 fL 05/28/2021 11:15 AM CDT [facility] LABORATORY SERVICES - [facility] MCH 28.7 27.8 - 34.5 pg 05/28/2021 11:15 AM CDT [facility] LABORATORY SERVICES [facility] MCHC 32.5 32.5 - 35.5 g/dL 05/28/2021 11:15 AM CDT [facility] LABORATORY SERVICES [facility] RDW 16.6(H) 11.5 - 14.5 % 05/28/2021 11:15 AM CDT [facility] LABORATORY SERVICES [facility] PLATELETS 363 160 - 420 K/uL 05/28/2021 11:15 AM CDT [facility] LABORATORY SERVICES [facility] MPV 7.5(L) 8.7 - 12.7 fL 05/28/2021 11:15 AM CDT [facility] LABORATORY SERVICES [facility] NEUTROPHILS 68 % 05/28/2021 11:15 AM CDT [facility] LABORATORY SERVICES [facility] LYMPHOCYTES 21 % 05/28/2021 11:15 AM CDT [facility] LABORATORY SERVICES [facility] MONOCYTES 7 % 05/28/2021 11:15 AM CDT [facility] LABORATORY SERVICES [facility] EOSINOPHILS 4 % 05/28/2021 11:15 AM CDT [facility] LABORATORY SERVICES [facility] BASOPHILS 1 % 05/28/2021 11:15 AM CDT [facility] LABORATORY SERVICES [facility] NEUTROPHIL ABSOLUTE 5.50 1.90 - 7.00 K/uL 05/28/2021 11:15 AM CDT [facility] LABORATORY SERVICES [facility] LYMPHOCYTE ABSOLUTE 1.70 0.70 - 4.50 K/uL 05/28/2021 11:15 AM CDT [facility] LABORATORY SERVICES [facility] MONOCYTE ABSOLUTE 0.60 0.10 - 1.30 K/uL 05/28/2021 11:15 AM CDT [facility] LABORATORY SERVICES [facility] EOSINOPHIL ABSOLUTE 0.30 0.00 - 0.70 K/uL 05/28/2021 11:15 AM CDT [facility] LABORATORY [facility] BASOPHILS ABSOLUTE 0.10 0.00 - 0.20 K/uL 05/28/2021 11:15 AM CDT [facility] Blood Collection / Unknown 05/28/2021 5:00 AM CDT 05/28/2021 11:07 AM CDT us Nargis Guy MD HEMATOLOGY ORDERABLES Final Resu lt [facility] CLIA# [id number] [place] [address] * (ABNORMAL) BASIC METABOLIC PANEL (05/28/2021 5:00 AM CDT) SODIUM 145 136 - 145 mmol/L 05/28/2021 11:44 AM T [facility] POTASSIUM 3.7 3.4 - 5.1 mmol/L 05/28/2021 11:44 AM [facility] CHLORIDE 108(H) 98 - 107 mmol/L 05/28/2021 11:44 AM T [facility] CO2 24 22 - 29 mmol/L 05/28/2021 11:44 AM [facility] CALCIUM 8.4(L) 8.6 - 10.4 mg/dL 05/28/2021 11:44 AM [facility] BUN 14 6 - 20 mg/dL 05/28/2021 11:44 AM [facility] CREATININE 1.17(H) 0.51 - 0.95 mg/dL 05/28/2021 11:44 AM T [facility] [employer] [facility] GLUCOSE 105(H) 74 - 99 mg/dL 05/28/2021 11:44 AM T [facility] [employer] [facility] GFR 47 mL/min/1.7 3 sq meter 05/28/2021 11:44 AM T [facility] [employer] [facility] Comment: eGFR has not [...] 3 sq meter 05/28/2021 11:44 AM CDT [facility] LABORATORY [facility] ANION GAP 13 8 - 16 mmol/L 05/28/2021 11:44 AM CDT [facility] LABORATORY [facility] Blood Collection / Unknown 05/28/2021 5:00 AM CDT 05/28/2021 11:07 AM CDT us Nargis Guy MD CHEMISTRY ORDERABLES Final Resul t [facility] [employer] [facility] CLIA# [id number] [place] [address] documented in this encounter Visit Diagnoses Not on filedocumented in this encounter
--- OUTSIDE RECORDS SUMMARY | 2025-08-29 14:33 | XMS_ITS | Encounter Summary ---
Author Organization [facility] Address [address] [place] [address] Care Team Providers Care Allergy And Immunology Specialist Name Role Phone Unavailable Primary Care Provider Unavailabl e Encounter Details Date Type Department Care Team (Late st Contact Info) Description 05/19/2021 Lab Requisition [facility] Laboratory Services [address] [place] [address] [facility], External Provider [address] [place] [address] Social History Tobacco Use Types Packs/Day Years [...] - 14.7 Seconds 05/19/2021 4:12 AM CDT [facility] INR 1.1 0.9 - 1.1 05/19/2021 4:12 AM CDT [facility] Blood Collection / Unknown 05/19/2021 3:20 AM CDT 05/19/2021 3:49 AM CDT External Provider [facility] HEMATOLOGY ORDERABLES Fin al Result [facility] CLIA# [id number] [place] [address] * (ABNORMAL) LACTIC ACID (05/19/2021 3:20 AM CDT) LACTIC ACID 4.5(H) <=2.0 mmol/L 05/19/2021 4:19 AM CDT [facility] Blood Collection / Unknown 05/19/2021 3:20 AM CDT 05/19/2021 3:49 AM CDT External Provider [facility] CHEMISTRY ORDERABLES Jennie l Result [facility] CLIA# [id number] [address] [place] [address] * PTT (05/19/2021 3:20 AM CDT) PTT 23.8 23.1 - 37.1 seconds 05/19/2021 4:12 AM CDT [facility] Blood Collection / Unknown 05/19/2021 3:20 AM CDT 05/19/2021 3:49 AM CDT External Provider [facility] HEMATOLOGY ORDERABLES Fin al Result [facility] LABORATORY [facility] CLIA# [id number] [address] [place] [address] * (ABNORMAL) CBC WITH DIFFERENTIAL (05/19/2021 3:20 AM CDT) WBC 26.7(H) 4.5 - 10.5 K/uL 05/19/2021 4:03 AM CDT [facility]ORATORY [facility] RBC 2.46(L) 3.90 - 4.90 M/uL 05/19/2021 4:03 AM CDT [facility] LABORATORY SERVICES [facility] HEMOGLOBIN 6.9(LL) 11.8 - 14.8 g/dL 05/19/2021 4:03 AM CDT [facility]ATORY SERVICES [facility] HEMATOCRIT 22.1(L) 35.5 - 44.0 % 05/19/2021 4:03 AM CDT [facility] MCV 89.7 82.0 - 99.0 fL 05/19/2021 4:03 AM CDT [facility] MCH 27.8 27.8 - 34.5 pg 05/19/2021 4:03 AM CDT [facility] MCHC 31.0(L) 32.5 - 35.5 g/dL 05/19/2021 4:03 AM CDT [facility] RDW 15.4(H) 11.5 - 14.5 % 05/19/2021 4:03 AM CDT [facility]ATORY [facility] PLATELETS 329 160 - 420 K/uL 05/19/2021 4:03 AM CDT [facility]ATORY [facility] MPV 8.8 8.7 - 12.7 fL 05/19/2021 4:03 AM CDT [facility]ATORY [facility] NEUTROPHILS 57 % 05/19/2021 4:03 AM CDT [facility]ATORY SERVICES [facility] LYMPHOCYTES 30 % 05/19/2021 4:03 AM CDT [facility]ATORY [facility] MONOCYTES 10 % 05/19/2021 4:03 AM CDT [facility]ATORY [facility] EOSINOPHILS 2 % 05/19/2021 4:03 AM CDT [facility] BASOPHILS 0 % 05/19/2021 4:03 AM CDT [facility] NEUTROPHIL ABSOLUTE 15.30(H) 1.90 - 7.00 K/uL 05/19/2021 4:03 AM CDT [facility] LYMPHOCYTE ABSOLUTE 8.10(H) 0.70 - 4.50 K/uL 05/19/2021 4:03 AM CDT [facility] MONOCYTE ABSOLUTE 2.60(H) 0.10 - 1.30 K/uL 05/19/2021 4:03 AM CDT [facility]AT[facility] EOSINOPHIL ABSOLUTE 0.60 0.00 - 0.70 K/uL 05/19/2021 4:03 AM CDT [facility] BASOPHILS ABSOLUTE 0.10 0.00 - 0.20 K/uL 05/19/2021 4:03 AM CDT [facility] Blood Collection / Unknown 05/19/2021 3:20 AM CDT 05/19/2021 3:49 AM CDT us External Provider [facility] HEMATOLOGY ORDERABLES Fin al Result [facility] CLIA# [id number] [place] [address] * (ABNORMAL) COMPREHENSIVE METABOLIC PANEL (05/19/2021 3:20 AM CDT) SODIUM 134(L) 136 - 145 mmol/L 05/19/2021 4:26 AM CDT [facility] POTASSIUM 6.6(HH) 3.4 - 5.1 mmol/L 05/19/2021 4:26 AM CDT [facility] CHLORIDE 99 98 - 107 mmol/L 05/19/2021 4:26 AM CDT [facility] CO2 18(L) 22 - 29 mmol/L 05/19/2021 4:26 AM CDT [facility] CALCIUM 8.7 8.6 - 10.4 mg/dL 05/19/2021 4:26 AM [facility] BUN 64(H) 6 - 20 mg/dL 05/19/2021 4:26 AM [facility] CREATININE 4.16(H) 0.51 - 0.95 mg/dL 05/19/2021 4:26 AM [facility] GLUCOSE 280(H) 74 - 99 mg/dL 05/19/2021 4:26 AM [facility] TOTAL PROTEIN 6.6 6.3 - 8.7 g/dL 05/19/2021 4:26 AM [facility] ALBUMIN 2.5(L) 3.5 - 5.2 g/dL 05/19/2021 4:26 AM [facility] BILIRUBIN TOTAL 0.2(L) 0.3 - 1.2 mg/dL 05/19/2021 4:26 AM [facility] ALKALINE PHOSPHATASE 94 40 - 150 U/L 05/19/2021 4:26 AM [facility] AST 31 0 - 33 U/L 05/19/2021 4:26 AM [facility] ALT 19 0 - 33 U/L 05/19/2021 4:26 AM [facility] GFR 11 mL/min/1.7 3 sq meter 05/19/2021 4:26 AM [facility] Comment: eGFR has not [...] mL/min/1.7 3 sq meter 05/19/2021 4:26 AM [facility] ANION GAP 17(H) 8 - 16 mmol/L 05/19/2021 4:26 AM CDT [facility] Blood Collection / Unknown 05/19/2021 3:20 AM CDT 05/19/2021 3:49 AM CDT us External Provider [facility] CHEMISTRY ORDERABLES Jennie painter Result [facility] CLIA# [id number] [address] [place] [address] documented in this encounter Visit Diagnoses Not on filedocumented in this encounter
--- OUTSIDE RECORDS SUMMARY | 2025-08-29 14:33 | XMS_ITS | Encounter Summary ---
Author Organization [facility] Address [address] [place] [address] Care Team Providers Care Microarray Operations Vice President Name Role Phone Unavailable Primary Care Provider Unavailabl e Encounter Details Date Type Department Care Team (Late st Contact Info) Description 06/11/2021 Lab Requisition [facility] Laboratory Services [address] [place] [address] [place] [address] [place] [address] Social History Tobacco Use Types [...] to Dark Yellow 06/11/2021 7:[address] [facility] LABORATORY SERVICES [facility] CLARITY UA Slightly Cloudy(A) Clear 06/11/2021 7:[address] [facility] LABORATORY SERVICES - [facility] SPECIFIC GRAVITY UA 1.006 1.003 - 1.035 06/11/2021 7:[address] [facility] LABORATORY SERVICES - [facility] PH UA 6.0 5.0 - 8.0 06/11/2021 7:[address] [facility] LABORATORY [facility] LEUKOCYTE ESTERASE UA 3+(A) Negative 06/11/2021 7:[address] [facility] LABORAT[facility] NITRITE UA Negative Negative 06/11/2021 7:[address] [facility] LABORATORY SERVICES [facility] PROTEIN UA Negative Negative 06/11/2021 7:[address] [facility] LABORATORY SERVICES [facility] GLUCOSE UA Negative Negative 06/11/2021 7:[address] [facility] LABORATORY SERVICES [facility] KETONES UA Negative Negative 06/11/2021 7:[address] [facility] LAB[facility] UROBILINOGEN UA Normal <2.0 mg/dL 7:[address] [facility] LABORATORY SERVICES [facility] BILIRUBIN UA Negative Negative 06/11/2021 7:[address] [facility] BLOOD UA 1+(A) Negative 06/11/2021 7:[address] [facility] LABORATORY SERVICES [facility] WBC UA 11-25(A) 0 - 2 /hpf 06/11/2021 7:[address] [facility] LAB[facility] RBC UA 3-5(A) 0 - 2 /hpf 06/11/2021 7:[address] [facility] LABORATORY SERVICES [facility] BACTERIA UA Negative Negative /hpf 06/11/2021 7:[address] [facility] LABORATORY SERVICES [facility] EPITHELIAL CELLS, URINE 0-5 0 - 5 /hpf 06/11/2021 7:[address] [facility] LABORATORY SERVICES [facility] HYALINE CAST None Seen None Seen, 0-2 /lpf 06/11/2021 7:[address] [facility] Urine URINE SPECIMEN OBTAINED BY CLEAN CATCH PROCEDURE / Unknown Collection / Unknown 06/11/2021 12:01 AM CDT 06/11/2021 7:42 AM CDT us Nargis Guy MD URINE ORDERABLES Final Result [facility] [employer] [facility] CLIA# [id number] [address] [place] [address] * URINE CULTURE (06/11/2021 12:01 AM CDT) CULTURE No growth at 24 hours 06/12/2021 1:08 PM CDT [facility] Urine Collection / Unknown 06/11/2021 12:01 AM CDT 06/11/2021 7:42 AM CDT us Nargis Guy MD MICROBIOLOGY - GENERAL ORDERABLE S Final Result Performing Organization Address City/[facility]/ZIP Co de Phone Number [facility] [employer] [facility] CLIA# [id number] [address] [place] [address] documented in this encounter Visit Diagnoses Not on filedocumented in this encounter
--- OUTSIDE RECORDS SUMMARY | 2025-08-29 14:33 | XMS_ITS | Encounter Summary ---
Author Organization [facility] Address [address] [place] [address] Care Team Providers Care Tool Specialist Name Role Phone Unavailable Primary Care Provider Unavailabl e Encounter Details Date Type Department Care Team (Late st Contact Info) Description 05/16/2021 Lab Requisition [facility] Laboratory Services [address] [place] [address] [place] [address] [place] [address] Social History Tobacco Use Types [...] - 145 mmol/L 05/16/2021 12:14 PM CDT [facility] LABORATORY [facility] POTASSIUM 4.9 3.4 - 5.1 mmol/L 05/16/2021 12:14 PM CDT [facility] LABORATORY [facility] CHLORIDE 99 98 - 107 mmol/L 05/16/2021 12:14 PM CDT [facility] CO2 23 22 - 29 mmol/L 05/16/2021 12:14 PM CDT [facility] CALCIUM 8.6 8.6 - 10.4 mg/dL 05/16/2021 12:14 PM CDT [facility] BUN 27(H) 6 - 20 mg/dL 05/16/2021 12:14 PM CDT [facility] CREATININE 2.53(H) 0.51 - 0.95 mg/dL 05/16/2021 12:14 PM CDT [facility] GLUCOSE 126(H) 74 - 99 mg/dL 05/16/2021 12:14 PM T [facility] GFR 19 mL/min/1.7 3 sq meter 05/16/2021 12:14 PM T [facility] Comment: eGFR has [...] 3 sq meter 05/16/2021 12:14 PM CDT [facility] ANION GAP 14 8 - 16 mmol/L 05/16/2021 12:14 PM CDT [facility] Blood 05/16/2021 3:00 AM CDT 05/16/2021 11:44 AM CDT us Nargis Guy MD CHEMISTRY ORDERABLES Final Resul t [facility] CLIA# [id number] [place] [address] documented in this encounter Visit Diagnoses Not on filedocumented in this encounter
--- OUTSIDE RECORDS SUMMARY | 2025-08-29 14:33 | XMS_ITS | Encounter Summary ---
Author Organization [facility] Address [address] [place] [address] Care Team Providers Care Evaporator Repairer Name Role Phone Unavailable Primary Care Provider Unavailabl e Encounter Details Date Type Department Care Team (Late st Contact Info) Description 05/18/2021 Lab Requisition [facility] Laboratory Services [address] [place] [address] [place] [address] [place] [address] Social History Tobacco Use Types [...] - 145 mmol/L 05/18/2021 8:44 AM CDT [facility] LABORATORY SERVICES [facility] POTASSIUM 5.7(H) 3.4 - 5.1 mmol/L 05/18/2021 8:44 AM CDT [facility] CHLORIDE 101 98 - 107 mmol/L 05/18/2021 8:44 AM CDT [facility] CO2 24 22 - 29 mmol/L 05/18/2021 8:44 AM T [facility] CALCIUM 8.7 8.6 - 10.4 mg/dL 05/18/2021 8:44 AM CDT [facility] BUN 58(H) 6 - 20 mg/dL 05/18/2021 8:44 AM T [facility] CREATININE 3.20(H) 0.51 - 0.95 mg/dL 05/18/2021 8:44 AM T [facility] GLUCOSE 102(H) 74 - 99 mg/dL 05/18/2021 8:44 AM T [facility] GFR 15 mL/min/1.7 3 sq meter 05/18/2021 8:44 AM T [facility] Comment: eGFR has not [...] 3 sq meter 05/18/2021 8:44 AM CDT [facility] ANION GAP 14 8 - 16 mmol/L 05/18/2021 8:44 AM T [facility] Blood Collection / Unknown 05/18/2021 4:57 AM CDT 05/18/2021 8:11 AM CDT us Nargis Guy MD CHEMISTRY ORDERABLES Final Resul t [facility] CLIA# [id number] [place] [address] documented in this encounter Visit Diagnoses Not on filedocumented in this encounter
[2025-08-29 15:05] VITALS: BP 132/86; PULSE 78; RESP 18; O2SAT 98
== END 2025-08-29 15:58 | disposition home or self-care (01) ==
PROVIDERS: Emergency Provider Emergency Medicine; PCP Family Medicine
DX: K59.00 Constipation, unspecified (principal); F17.210 Nicotine dependence, cigarettes, uncomplicated; F12.90 Cannabis use, unspecified, uncomplicated
CPT/HCPCS: 36415; 71046; 74018; 80053; 81003; 85025; 93005; 99283

== ENCOUNTER 2025-09-13 12:30 | Inpatient (IN) | payer OTHER, SELFPAY ==
--- NOTE | ~2025-09-13 | CT_ITS ---
EXAMINATION: CT abdomen pelvis w con DATE: 09/13/2025 13:39 INDICATION: Abdominal discomfort TECHNIQUE: Computed tomography (CT) of the abdomen and pelvis was performed with 100 mL Omnipaque-350 intravenous contrast. Automated exposure control and iterative reconstruction technique were employed. The dose-length product was 1733.35 mGy-cm. COMPARISON: None FINDINGS: Prominent pneumatocele at the lingula and minimal dependent atelectasis in the left lower lobe. Heart size is normal. Atherosclerotic coronary artery calcifications and possible stenting along the left anterior descending coronary artery. No pericardial or pleural effusion. Couple bladder is not visualized and there is mild intra and extra hepatic biliary ductal dilation likely related to prior cholecystectomy. Spleen, pancreas, bilateral kidneys and bladder is normal. The uterus is not identified and has likely been surgically resected. No abnormal bowel wall thickening or obstruction. No free intraperitoneal gas or fluid. No pathologically enlarged abdominal or pelvic lymphadenopathy. And right adrenal gland are normal. Small calcified nodule at the left adrenal gland likely sequela of chronic infection or hemorrhage. Ventral diastases with fatty atrophy of the right rectus abdominous musculature. Mild lumbar and lower thoracic spondylosis. IMPRESSION: 1. No acute intra-abdominal/pelvic process. Reviewed, dictated and finalized at location A.
[2025-09-13 12:25] VITALS: BP 160/91; PULSE 89; RESP 16; TEMP 37; O2SAT 98
[2025-09-13 12:52] LABS: Hematocrit 49.8 % (37.0-47.0); Hemoglobin 16.0 g/dL (12.0-15.0); Immature Granulocyte Percent A 0.8 % (0-0.5); Lymphocytes Absolute Auto 3.10 K/mm3 (0.9-3.2); Mean Corpuscular HGB Conc 32.1 g/dl (32-36); Mean Corpuscular Hemoglobin 28.9 pg (26-34); Mean Corpuscular Volume 89.9 fl (80-100); Nucleated Red Blood Cells Absolute Auto 0.000 K/mm3 (0.0-0.012); Nucleated Red Blood Cells Perc 0.0 % (0.0-0.2); Platelet Count Result 301 k/mm3 (150-375); Red Blood Count 5.54 M/mm3 (4.2-5.4); White Blood Count 11.4 K/mm3 (4.5-10.0)
[2025-09-13 13:03] LABS: Alanine Aminotransferase 22 U/L (6-35); Albumin Level 4.2 g/dL (3.5-5.1); Alkaline Phosphatase 101 U/L (38-126); Anion Gap 6 mmol/L (4-12); Aspartate Amino Transferase 25 U/L (14-36); Bilirubin,Total 0.6 mg/dL (0.2-1.3); Blood Urea Nitrogen 14 mg/dL (7-17); Calcium 9.1 mg/dL (8.4-10.2); Carbon Dioxide 26 mmol/L (22-30); Chloride 107 mmol/L (98-107); Estimated CRCL calculation 83 ml/min; Estimated Glomerular Filt Rate > 60; Glucose 157 mg/dL (65-110); Lipase 35 U/L (23-300); Potassium 4.3 mmol/L (3.4-5.0); Sodium 139 mmol/L (137-145); Total Protein 7.7 g/dL (6.3-8.2)
--- NOTE | 2025-09-13 13:11 | ED.GENADULT ---
HPI - General Adult General Chief complaint: Urogenital-Female Stated complaint: ?UTI Time Seen by Provider: 09/13/25 12:43 History of Present Illness HPI narrative: 65-year-old female presenting to emergency department for evaluation for increased generalized weakness and pain at her Robyn rash. Patient did have a Robyn rash under her breasts and in her gluteal cleft. Patient has been using a diaper rash/barrier cream on this but has not been using any antifungal based products. Patient does describe increased generalized weakness and pain with urination as well Related Data Home Medications ?Medication ?Instructions ?Recorded ?Confirmed ?Last Taken ?Type citalopram 40 mg tablet 40 mg PO DAILY 08/09/23 09/13/25 09/12/25 History famotidine 40 mg tablet 40 mg PO DAILY 08/09/23 09/13/25 09/12/25 History gabapentin 800 mg tablet 800 mg PO TID 08/09/23 09/13/25 09/12/25 History lisinopril 30 mg tablet 30 mg PO DAILY 08/09/23 09/13/25 09/12/25 History oxybutynin chloride 5 mg tablet 5 mg PO HS 08/09/23 09/13/25 12/13/24 History primidone 250 mg tablet 250 mg PO BID 08/09/23 09/13/25 09/12/25 History ropinirole 3 mg tablet 3 mg PO HS 08/09/23 09/13/25 09/12/25 History metformin 500 mg tablet 500 mg PO BID 12/15/23 09/13/25 09/12/25 History tolnaftate 1 % topical powder 1 applic topical Q12HR PRN Rash 12/15/23 09/13/25 12/13/24 History budesonide-formoterol HFA 160 1 inh inhalation DAILY PRN 03/10/24 09/13/25 12/13/24 History mcg-4.5 mcg/actuation aerosol Shortness Of Breath inhaler (Symbicort) docusate sodium 100 mg capsule 100 mg PO PRN PRN Constipation 03/10/24 09/13/25 12/13/24 History atorvastatin 40 mg tablet 40 mg PO DAILY 09/13/25 09/13/25 09/12/25 History nortriptyline 25 mg capsule 25 mg PO TID 09/13/25 09/13/25 09/12/25 History Allergies Allergy/AdvReac Type Severity Reaction Status Date / Time morphine Allergy Severe Swelling Verified 09/13/25 17:35 of Lip/Tongue/Throat Review of Systems Review of Systems: All systems reviewed & are unremarkable except as noted in HPI and below PMFSH Past Medical History Medical History Morbid obesity Bedbound Restless leg syndrome Neuropathy Asthma Heart failure Anxiety and depression Suicide attempt x3, last attempt in Bipolar disorder Arthritis HLD (hyperlipidemia) Migraine COPD (chronic obstructive pulmonary disease) Hypertension Atrial fibrillation with RVR Tobacco abuse Degenerative joint disease of knee Diabetes mellitus with hyperglycemia Cellulitis of groin necrotizing fasciitis Frequent falls MINA (acute kidney injury) Cellulitis 2006 Surgical History Surgical History History of bladder surgery History of appendectomy 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 History of cholecystectomy History of heart artery stent Family History Family History Father Acute myocardial infarction Hypertension Grandparent Chronic obstructive pulmonary disease Diabetes mellitus Mother Congestive heart failure Diabetes mellitus Hypertension Other Leukemia Social History Social History Smoking packs per day: 0.5 Smoking cigarettes per day: 10.0 Years smoked: 47 Smoking pack-years: 23.50 Smoking status: Current every day smoker Tobacco type: cigarettes Second hand tobacco smoke exposure: Yes Alcohol intake: current Drinks per week: 1 Substance use: current Substance use type: marijuana Other substance usage details: alcohol couple times/year, currently uses CBD gummies and smokes marijuana Do You Feel Safe in your Home?: Yes Lack of Transportation: No Lack of Food: Sometimes True Current Housing: I Have Housing Concerned About Future Housing: No Difficulty Paying Gas/Electric Bills: YES Difficulty Paying for Meds: YES Currently Unemployed: No Education: High School Diploma/GED Difficulty w/ Childcare or Family Care: No Spiritual care concerns: No Exam Narrative: APPEARANCE: Well appearing, no pain, no distress, well-nourished. HEAD: normocephalic, atraumatic. EYES: PERRLA/EOMI, conjunctivae clear. NOSE: Normal no drainage EARS:TMS clear with good light reflex. THROAT: Pharynx clear, no exudate. NECK: Supple. No adenopathy, no masses. RESPIRATORY: Airway patent, respirations nonlabored. Clear to auscultation bilaterally, no rales, rhonchi, wheezing. CARDIOVASCULAR: Regular rate and rhythm without murmurs rubs or gallops. ABDOMINAL: Soft, nontender, nondistended, normal bowel sounds MUSCULOSKELETAL: Moves all extremities. Strength/ROM intact, No edema, No calf tenderness. NEURO: Alert. Cranial nerves II through XII intact. Good gait. Good coordination SKIN: Warm, dry. Normal Color Course Vital Signs Vital signs: Vital Signs Temperature 98.6 F 09/13/25 12:25 Pulse Rate 89 09/13/25 12:25 Respiratory Rate 16 09/13/25 12:25 Blood Pressure 160/91 H 09/13/25 12:25 Pulse Oximetry 98 09/13/25 12:25 Oxygen Delivery Room Air 09/13/25 12:25 Temperature 98.4 F 09/13/25 17:31 Pulse Rate 83 09/13/25 17:46 Respiratory Rate 16 09/13/25 17:46 Blood Pressure 149/61 H 09/13/25 17:31 Pulse Oximetry 100 09/13/25 17:46 Oxygen Delivery Room Air 09/13/25 17:46 Medical Decision Making [facility] Narrative Medical decision making narrative: 65-year-old female present to the emergency department for evaluation for increased generalized weakness and nausea that is been worsening over the course of the last week. Patient does have pain with urination. Patient does have extensive candidal infection on her gluteal cleft. UA was significant for infection. Patient is afebrile but does have a leukocytosis of 11.4 hemoglobin of 16. This hemoglobin is similar to her baseline and I do not think is a result of hemoconcentration. Patient's kidney function shows a creatinine of 0.82 which is also similar to her baseline. UA was significant for a urinary tract infection. Patient was started on IV Rocephin, blood cultures were ordered, urine culture was ordered patient was treated with 1 L of lactated Ringer's. CT abdomen pelvis showed no acute abdominal pathology. Patient does still feel increasingly weakness not feel she is able to care for herself at home. Differential Diagnosis Differential Diagnosis: UTI, pyelonephritis, kidney stone, colitis, diverticulitis, pneumonia, candidiasis, cellulitis Vital Signs Vital Signs: Vital Signs Temperature 98.6 F 09/13/25 12:25 Pulse Rate 89 09/13/25 12:25 Respiratory Rate 16 09/13/25 12:25 Blood Pressure 160/91 H 09/13/25 12:25 Pulse Oximetry 98 09/13/25 12:25 Oxygen Delivery Room Air 09/13/25 12:25 Temperature 98.4 F 09/13/25 17:31 Pulse Rate 83 09/13/25 17:46 Respiratory Rate 16 09/13/25 17:46 Blood Pressure 149/61 H 09/13/25 17:31 Pulse Oximetry 100 09/13/25 17:46 Oxygen Delivery Room Air 09/13/25 17:46 Lab Data Lab results reviewed: Yes I reviewed the patient's lab results. 09/13/25 12:41 09/13/25 12:41 Labs: Lab Results 09/13/25 Range/Units 12:41 WBC 11.4 H (4.5-10.0) K/mm3 RBC 5.54 H (4.2-5.4) M/mm3 Hgb 16.0 H (12.0-15.0) g/dL Hct 49.8 H (37.0-47.0) % MCV 89.9 (80-100) fl MCH 28.9 (26-34) pg MCHC 32.1 (32-36) g/dl RDW 16.5 H (11.5-14.5) % Plt Count 301 (150-375) k/mm3 MPV 9.6 (7.4-10.4) fl Immature Gran % (Auto) 0.8 H (0-0.5) % Neut % (Auto) 63.7 (45.5-73.1) % Lymph % (Auto) 27.2 (18.3-44.2) % [place] % (Auto) 6.7 (2.6-8.5) % Eos % (Auto) 1.2 (0-4.4) % Baso % (Auto) 0.4 (0.2-1.2) % Lymph # (Auto) 3.10 (0.9-3.2) K/mm3 [place] # (Auto) 0.8 H (0.1-0.6) K/mm3 Eos # (Auto) 0.1 (0-0.3) K/mm3 Baso # (Auto) 0.1 (0.0-0.1) K/mm3 Abs Immat Gran (auto) 0.09 H (0.00-0.031) K/mm3 Absolute Neuts (auto) 7.3 H (1.3-6.7) K/mm3 Absolute Nucleated RBC 0.000 (0.0-0.012) K/mm3 Nucleated RBC % 0.0 (0.0-0.2) % Sodium 139 (137-145) mmol/L Potassium 4.3 (3.4-5.0) mmol/L Chloride 107 (98-107) mmol/L Carbon Dioxide 26 (22-30) mmol/L Anion Gap 6 (4-12) mmol/L BUN 14 D (7-17) mg/dL Creatinine 0.82 (0.7-1.0) mg/dL Estim Creat Clear Calc 83 ml/min Estimated GFR > 60 (59 - ) Glucose 157 H (65-110) mg/dL Calcium 9.1 (8.4-10.2) mg/dL Total Bilirubin 0.6 (0.2-1.3) mg/dL AST 25 (14-36) U/L ALT 22 (6-35) U/L Alkaline Phosphatase 101 (38-126) U/L C-Reactive Protein 6.1 H (<1.0) mg/dL Total Protein 7.7 (6.3-8.2) g/dL Albumin 4.2 (3.5-5.1) g/dL Lipase 35 (23-300) U/L Urine Color Dark yellow (Yellow) Urine Appearance Clear (Clear) Urine pH 5.5 (5.0-9.0) Ur Specific [place] 1.026 (1.001-1.035) Urine Protein 1+ H (Negative) mg/dL Urine Glucose (UA) 3+ H (Negative) mg/dL Urine Ketones Trace H (Negative) mg/dL Ur Blood (Man) Negative (Negative) Urine Nitrate Negative (Negative) Urine Bilirubin Negative (Negative) Urine Urobilinogen 1.0 (<2.0) mg/dL Add Ur Microanalysis Reviewed Leukocyte Esterase Rfl 2+ H (Negative) RALPH/UL Urine RBC 6-10 H (0-2) /hpf Urine WBC 51-100 H (0-3) /hpf Ur Squamous Epith Cells None seen (Few) /hpf Urine Bacteria 4+ H /hpf Urine Casts 0-2 Imaging Data Radiologist's impression: Impressions Abdomen/Pelvis CT 09/13/25 13:43 IMPRESSION: 1. No acute intra-abdominal/pelvic process. Discharge Plan Discharge Clinical Impression: Pyelonephritis Patient Disposition: Still a Patient Condition: Serious
[2025-09-13 13:45] LABS: Add Urine Microscopic? YES; Appearance Urine Clear (Clear); Glucose Urine UA 3+ mg/dL (Negative); Leukocyte Esterase Ur 2+ LEU/UL (Negative); Need Manual Microscopic Reviewed; Nitrate Urine Negative (Negative); Non Pathogenic Casts 0-2; Specific Grav Ur 1.026 (1.001-1.035)
[2025-09-13] MEDS: cefTRIAXone 1 GM in SODIUM CHLORIDE 0.9% IV 50 ML 100 ML IVPB (14:44)
[2025-09-13] MEDS: LACTATED RINGERS 1,000 ML 999 ML IV CONT (14:44)
--- NOTE | 2025-09-13 14:51 | P.HP_ITS ---
H&P: HPI History of Present Illness Date/Time: 09/13/25 14:51 Chief Complaint: Generalized Weakness, Dysuria Narrative: 65 y/o F with PMH of RLS, heart failure, anxiety, depression, bipolar disorder, hyperlipidemia, COPD, hypertension, and atrial fibrillation presents here with generalized weakness and dysuria. The patient presents here from home via EMS on 09/13 for further evaluation of generalized weakness and dysuria. She reports the generalized weakness has been ongoing for the past 2 weeks. Dysuria started around 2 weeks ago as well. It is accompanied by urinary frequency. She denies accompanying difficulty urinating, abdominal pain, shortness of breath, chest pain, nausea, vomiting, diarrhea, or focal weakness/focal numbness. She also notes she has had a Robyn rash under her bilateral breast, lower abdomen, and her gluteal cleft. She has been utilizing diaper rash/cream at home, however has not utilized any antifungal based products. Rashes have been present for a long time, endorses they have been there for more than a year. She is also reporting as she feels she is on able to take care of herself at home. Patient was recently admitted here on 06/21-06/22 for inability to care for herself at home. She was accepted to [facility], however she signed herself out around 2 weeks ago citing she just wanted to go home as her reason. Initial VS at presentation: 98.6? F, HR 89, R 16, 160/91, and 98% on RA. ED workup showed: WBC 11.4, hemoglobin 16.0 (at baseline), no significant electrolyte derangements, creatinine 0.82 and GFR >60, glucose 157, UA consistent with UTI. CT of the abdomen/pelvis showed no acute intra- abdominal/pelvic process. Review of Systems Review of Systems: All systems reviewed & are unremarkable except as noted in HPI and below [facility] Past Medical History Medical History Morbid obesity Bedbound Restless leg syndrome Neuropathy Asthma Heart failure Anxiety and depression Suicide attempt x3, last attempt in 1989' Bipolar disorder Arthritis HLD (hyperlipidemia) Migraine COPD (chronic obstructive pulmonary disease) Hypertension Atrial fibrillation with RVR Tobacco abuse Degenerative joint disease of knee Diabetes mellitus with hyperglycemia Cellulitis of groin necrotizing fasciitis Frequent falls MINA (acute kidney injury) Cellulitis LLE, 2007 Surgical History Surgical History History of bladder surgery History of appendectomy 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 History of cholecystectomy History of heart artery stent Family History Family History Father Acute myocardial infarction Hypertension Grandparent Chronic obstructive pulmonary disease Diabetes mellitus Mother Congestive heart failure Diabetes mellitus Hypertension Other Leukemia Social History Social History Smoking packs per day: 0.5 Smoking cigarettes per day: 10.0 Years smoked: 47 Smoking pack-years: 23.50 Smoking status: Current every day smoker Tobacco type: cigarettes Second hand tobacco smoke exposure: Yes Alcohol intake: current Drinks per week: 1 Substance use: current Substance use type: marijuana Other substance usage details: alcohol couple times/year, currently uses CBD gummies and smokes marijuana Do You Feel Safe in your Home?: Yes Lack of Transportation: No Lack of Food: Sometimes True Current Housing: I Have Housing Concerned About Future Housing: No Difficulty Paying Gas/Electric Bills: YES Difficulty Paying for Meds: YES Currently Unemployed: No Education: High School Diploma/GED Difficulty w/ Childcare or Family Care: No Spiritual care concerns: No Meds Home Medications and Allergies Home Medications ?Medication ?Instructions ?Recorded ?Confirmed ?Type citalopram 40 mg tablet 40 mg PO DAILY 08/09/2308/18 History famotidine 40 mg tablet 40 mg PO DAILY 08/09/2308/18 History gabapentin 800 mg tablet 800 mg PO TID 08/09/2309/13 History lisinopril 30 mg tablet 30 mg PO DAILY 08/09/2308/18 History oxybutynin chloride 5 mg tablet 5 mg PO HS 08/09/23 History primidone 250 mg tablet 250 mg PO BID 08/09/2309/13 History ropinirole 3 mg tablet 3 mg PO HS 08/09/23 09/13/25 History metformin 500 mg tablet 500 mg PO BID 12/15/2309/13 History tolnaftate 1 % topical powder 1 applic topical Q12HR P RN Rash 12/15/23 09/13/25 History budesonide-formoterol HFA 160 1 inh inhalation DAILY P RN 03/10/24 09/13/25 History mcg-4.5 mcg/actuation aerosol Shortness Of Breath inhaler (Symbicort) docusate sodium 100 mg capsule 100 mg PO PRN PRN Const ipation 03/10/24 09/13/25 History blood-glucose sensor (FreeStyle #2 ea 10/07/24 5 Rx Fredi 3 Plus Sensor device) blood-glucose,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,cont #1 ea 10/07/24 09/13/25 Rx (FreeStyle Fredi 3 [place]) rivaroxaban 20 mg tablet (Xarelto) 20 mg PO DAILY@1700 #60 tabs 12/16/24 09/13/25 Rx insulin glargine 100 unit/mL (3 10 unit (0.1 mL) subcu t QHS #15 mL 06/22/25 09/13/25 Rx mL) subcutaneous pen (ERPLYaglar KwikPen U-100 Insulin) polyethylene glycol 3350 17 17 g PO BID #238 grams 09/13/25 Rx gram/dose oral powder (Miralax) atorvastatin 40 mg tablet 40 mg PO DAILY 09/13/2508/18 History nortriptyline 25 mg capsule 25 mg PO TID 09/13/2508/18 History Allergies Allergy/AdvReac Type Severity Reaction Status Date / Time morphine Allergy Severe Swelling Verified 09/13/25 17:35 of Lip/Tongue/Throat Vital Signs Vital Signs - 24 hr 09/13/25 12:25 Temperature 98.6 F Pulse Rate 89 Respiratory Rate 16 Blood Pressure 160/91 H Pulse Oximetry 98 Oxygen Delivery Room Air Exam Const: General: comfortable and no acute distress Other: , female, obese body habitus high, chronically ill-appearing HENMT: Face/Nose/Sinus: Normal nares present Mouth: Yes moist mucous membranes Eyes: General: appearance normal, both eyes and all related structures Sclera: sclerae normal Pupils: Equal, round and reactive pupils present EOM: EOMs intact bilaterally Resp: Effort & Inspection: normal respiratory effort Other: Intermittent faint expiratory wheeze. No crackles on exam. Cardio: Rate: regular rate Rhythm: regular rhythm Other: S1-S2 present without murmur, rub, ectopy GI: Other: Abdomen soft, nondistended, nontender. Normoactive bowel sounds in all quadrants. Skin: Wounds: no wounds Other: Itchy rash to the patient's bilateral breast folds, pannus, and gluteal cleft that consistent with Robyn rash. Neuro: Speech: normal speech Sensory Exam: normal sensation Other: Generalized weakness, A&O x4 Extrem: Other: +1 nonpitting edema to bilateral lower e xtremities. Psych: Mental Status: mental status grossly normal Affect: normal affect Other: Fair insight and judgment. H&P: Results Labs Labs: Short CBC 09/13/25 Range/Units 12:41 WBC 11.4 H (4.5-10.0) K/mm3 Hgb 16.0 H (12.0-15.0) g/dL Hct 49.8 H (37.0-47.0) % Plt Count 301 (150-375) k/mm3 BMP 09/13/25 12:41 Sodium 139 Potassium 4.3 Chloride 107 Carbon Dioxide 26 BUN 14 D Creatinine 0.82 Glucose 157 H Calcium 9.1 Liver Function 09/13/25 Range/Units 12:41 Total Bilirubin 0.6 (0.2-1.3) mg/dL AST 25 (14-36) U/L ALT 22 (6-35) U/L Alkaline Phosphatase 101 (38-126) U/L Albumin 4.2 (3.5-5.1) g/dL Urine 09/13/25 Range/Units 12:41 Urine Color Dark yellow (Yellow) Urine Appearance Clear (Clear) Urine pH 5.5 (5.0-9.0) Ur Specific [place] 1.026 (1.001-1.035) Urine Protein 1+ H (Negative) mg/dL Urine Glucose (UA) 3+ H (Negative) mg/dL Assessment and Plan Assessment and plan (1) UTI (urinary tract infection): Qualifiers: Hematuria presence: without hematuria Urinary tract infection type: acute cystitis Qualified Code(s): N30.00 - Acute cystitis without hematuria Code(s): N39.0 - Urinary tract infection, site not specified Status: Acute Assessment and Plan: Patient presented here on 09/13 with generalized weakness, dysuria, and urinary frequency. UA consistent with UTI. No evidence of pyelonephritis or other acute intra-abdominal/pelvic process on CT of the abdomen/pelvis. - UC pending - previous micro reviewed. Patient grew E coli on 12/14/2024 that was intermediate to Unasyn and resistant to Cipro/Levaquin/Bactrim. Remain susceptible to ceftriaxone. - started on Ceftriaxone on 09/13 - IV fluids: 1L bolus (2) Failure to thrive: Qualifiers: Failure to thrive age range: in adult Qualified Code(s): R62.7 - Adult failure to thrive Status: Acute Assessment and Plan: Patient recently admitted here in June of 2025 for inability to care for herself. She was discharged to [facility], patient signed herself on XX due to XX. Returning today with generalized weakness and UTI. Now also reporting she feels she is unable to care for herself at home. - care coordination consulted for discharge planning/long-term placement - PT/OT eval for discharge planning (3) Candidal skin infection: Code(s): B37.2 - Candidiasis of skin and nail Status: Acute Assessment and Plan: Patient has erythematous itchy rash to her bilateral breast folds, pannus, and gluteal cleft consistent with Robyn. Patient has been applying diaper rash at home to the sites without resolution. Has not been utilizing an antifungal. 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 Initial glucose upon admission, 157. - hypoglycemia protocol - POC blood glucose ACHS - home medication: Continue glargine, pharmacist to adjust. Hold metformin. - correct regimen ordered - high dose TIDWM, based off BMI - A1C 6.7% on 06/22/2025 (5) Hypertension: Qualifiers: Hypertension type: unspecified Qualified Code(s): I10 - Essential (primary) hypertension Code(s): I10 - Essential (primary) hypertension Status: Chronic Assessment and Plan: - chronic, currently 160/91. - continue home medications: Lisinopril - monitor (6) Atrial fibrillation: Qualifiers: Atrial fibrillation type: unspecified chronic Qualified Code(s): I48.20 - Chronic atrial fibrillation, unspecified Code(s): I48.91 - Unspecified atrial fibrillation Status: Chronic Assessment and Plan: Patient has history of atrial fibrillation on anticoagulation. Currently rate controlled. - continue anticoagulation: Xarelto (7) Bipolar disorder: Qualifiers: Active/Remission status: remission status unspecified Qualified Code(s): F31.9 - Bipolar disorder, unspecified Code(s): F31.9 - Bipolar disorder, unspecified Status: Chronic Assessment and Plan: - continue Celexa (8) COPD (chronic obstructive pulmonary disease): Qualifiers: COPD type: unspecified COPD Qualified Code(s): J44.9 - Chronic obstructive pulmonary disease, unspecified Code(s): J44.9 - Chronic obstructive pulmonary disease, unspecified Status: Chronic Assessment and Plan: - mild intermittent expiratory wheeze not well appreciated on exam line, no increased sputum production worrisome for exacerbation. - DuoNeb p.r.n. - Continue Symbicort. Plan Diet: Heart healthy GI Prophylaxis: N/a DVT Prophylaxis: Xarelto IV fluids: 1 L bolus Lines/Tubes: Peripheral IV Code Status: Full code Quality VTE Prophylaxis VTE prophylaxis: pharmacologic ordered Hospitalist MIPS Advance Care Plan I have confirmed that the patient's Advanced Care Plan is present, code status is documented, or surrogate decision maker is listed in patient medical record.: Yes Medication Reconciliation I have utilized all available resources to obtain, update and review the rashad ents current medications (includes all prescriptions, OTC, herbals, cannabis, and nutritional supplements).: Yes
--- OUTSIDE RECORDS SUMMARY | 2025-09-13 15:31 | XMS_ITS | Clinical Summary ---
Author Organization [facility] Address [facility] [place] [address] Care Team Providers Care Pharmacy Technician Per Diem Name Role Phone Unavailable Primary Care Provider [...] Vaccines (1 of 2) 2011 COVID-19 Vaccine (2024-2 6 season) 2025 Influenza Adult (#1) 2025 RSV Immunization or 60+ Years (1 - 1-dose 75+ series) 2036 Hepatitis A Vaccines Aged Out No long er eligible based on patient's age to complete this topic Meningococcal B Vaccine Aged Out No l onger eligible based on patient's age to complete this topic Meningococcal Vaccine Aged Out No karely mike eligible based on patient's age to complete this topic RSV Immunizations Under 20 Months Aged Out No longer eligible based on patient's age to complete this topic
--- OUTSIDE RECORDS SUMMARY | 2025-09-13 15:31 | XMS_ITS | Clinical Summary ---
Author Organization [facility] Address [address] [place] [address] Care Team Providers Care Cook Fruit Name Role Phone Unavailable Primary Care Provider [...] meter) OneTouch Verio Flex Meter Active Insulin [place], Disposable, (TRUEplus Pen Needle) 31 gauge x [...] Flex Sig/CT Colonography Q 5 years 2006 RSV VACCINE (60+ or ) (1 - Risk 50-74 years 1-dose series) 2011 ZOSTER VACCINE (1 of 2) 2011 DIABETES HBA1C Q 6 MONTHS 01/13/2022 07/13/2021, INFLUENZA VACCINE (#1) 2025 09/08/2018, 2016 Procedures Procedure Name Priority Date/Time Associated Diagnosis Comments HEMOGLOBIN A1C Routine 07/13/2021 6:30 AM CDT from Last 3 Months or Most Recently Relevant to Health Maintenance Results * (ABNORMAL) HEMOGLOBIN A1C (07/13/2021 6:30 AM CDT) HEMOGLOBIN A1C 6.2(H) <=5.6 % 07/13/2021 10:36 AM CDT [facility] [employer] [facility] EST. AVG GLUCOSE, A1C 131 mg/dL 07/13/2021 10:36 AM CDT [facility] [employer] [facility] Blood Collection / Unknown 07/13/2021 6:30 AM CDT 07/13/2021 10:06 AM CDT Narrative [facility] - 07/13/2021 10:36 AM CDT HGB A1C INTERPRETATION NORMAL: <5.7% PRE-DIABETES: 5.7 - 6.4% DIABETES: 6.5% OR GREATER Nargis Guy MD CHEMISTRY ORDERABLES Final Resul t [facility] CLIA# [id number] [place] [address] from Last 3 Months or Most Recently Relevant to Health Maintenance Insurance [facility] [facility] MEDICAID RX [employer] Medicare Part D [place] [address] Advance Directives For more information, please contact: [phone] * Full Code (Latest Code Status on File) Date Activated Date Inactivated Comments 05/19/2021 12:52 PM 05/26/2021 12:57 AM
--- OUTSIDE RECORDS SUMMARY | 2025-09-13 15:31 | XMS_ITS | Encounter Summary ---
Author Organization [facility] Address [address] [place] [address] Care Team Providers Care Cardiac Nurse Practitioner Name Role Phone Unavailable Primary Care Provider Unavailabl e Encounter Details Date Type Department Care Team (Late st Contact Info) Description 06/27/2021 Lab Requisition [facility] Laboratory Services [address] [place] [address] [place] [address] [place] [address] Social History Tobacco Use Types [...] - 10.5 K/uL 06/27/2021 8:37 AM CDT [facility] RBC 3.25(L) 3.90 - 4.90 M/uL 06/27/2021 8:37 AM CDT [facility] HEMOGLOBIN 8.9(L) 11.8 - 14.8 g/dL [facility] HEMATOCRIT 27.8(L) 35.5 - 44.0 % 06/27/2021 8:37 AM CDT [facility] MCV 85.6 82.0 - 99.0 fL 06/27/2021 8:37 AM CDT [facility] MCH 27.5(L) 27.8 - 34.5 pg 06/27/2021 8:37 AM CDT [facility] MCHC 32.2(L) 32.5 - 35.5 g/dL 06/27/2021 8:37 AM CDT [facility] RDW 15.7(H) 11.5 - 14.5 % 06/27/2021 8:37 AM CDT [facility] PLATELETS 367 160 - 420 K/uL 06/27/2021 8[facility] MPV 7.7(L) 8.7 - 12.7 fL 06/27/2021 8:37 AM CDT [facility] NEUTROPHILS 53 % 06/27/2021 8:37 AM CDT [facility] LYMPHOCYTES 33 % 06/27/2021 8:37 AM CDT [facility] SERVICES [facility] MONOCYTES 9 % 06/27/2021 8:37 AM CDT [facility] SERVICES [facility] EOSINOPHILS 4 % 06/27/2021 8:37 AM CDT [facility] SERVICES [facility] BASOPHILS 1 % 06/27/2021 8:37 AM CDT [facility] NEUTROPHIL ABSOLUTE 3.40 1.90 - 7.00 K/uL 06/27/2021 8:37 AM CDT [facility] LYMPHOCYTE ABSOLUTE 2.20 0.70 - 4.50 K/uL 06/27/2021 8:37 AM CDT [facility] MONOCYTE ABSOLUTE 0.60 0.10 - 1.30 K/uL 06/27/2021 8:37 AM CDT [facility] SERVICES [facility] EOSINOPHIL ABSOLUTE 0.30 0.00 - 0.70 K/uL 06/27/2021 8:37 AM CDT [facility] SERVICES [facility] BASOPHILS ABSOLUTE 0.10 0.00 - 0.20 K/uL 06/27/2021 8:37 AM CDT [facility] Blood Collection / Unknown 06/27/2021 4:22 AM CDT 06/27/2021 8:17 AM CDT Nargis Guy MD HEMATOLOGY ORDERABLES Final Resu lt [facility] CLIA# [id number] [place] [address] * (ABNORMAL) COMPREHENSIVE METABOLIC PANEL (06/27/2021 4:22 AM CDT) SODIUM 137 136 - 145 mmol/L 06/27/2021 9:05 AM CDT [facility] POTASSIUM 3.9 3.4 - 5.1 mmol/L 06/27/2021 9:05 AM T [facility] CHLORIDE 104 98 - 107 mmol/L 06/27/2021 9:05 AM T [facility] CO2 24 22 - 29 mmol/L 06/27/2021 9:05 AM T [facility] CALCIUM 8.8 8.6 - 10.4 mg/dL 06/27/2021 9:05 AM CDT [facility] BUN 10 6 - 20 mg/dL 06/27/2021 9:05 AM CDT [facility] CREATININE 1.00(H) 0.51 - 0.95 mg/dL 06/27/2021 9:05 AM T [facility] GLUCOSE 110(H) 74 - 99 mg/dL 06/27/2021 9:05 AM T [facility] TOTAL PROTEIN 5.9(L) 6.3 - 8.7 g/dL 06/27/2021 9:05 AM [facility] ALBUMIN 2.5(L) 3.5 - 5.2 g/dL 06/27/2021 9:05 AM [facility] BILIRUBIN TOTAL <0.2(L) 0.2 - 1.1 mg/dL 06/27/2021 9:05 AM [facility] ALKALINE PHOSPHATASE 96 40 - 150 U/L 06/27/2021 9:05 AM [facility] AST 19 0 - 33 U/L 06/27/2021 9:05 AM [facility] ALT 17 0 - 33 U/L 06/27/2021 9:05 AM [facility] GFR 57 mL/min/1.7 3 sq meter 06/27/2021 9:05 AM [facility] Comment: [...] 3 sq meter 06/27/2021 9:05 AM T [facility] ANION GAP 9 8 - 16 mmol/L 06/27/2021 9:05 AM [facility] Blood Collection / Unknown 06/27/2021 4:22 AM CDT 06/27/2021 8:17 AM CDT us Nargis Guy MD CHEMISTRY ORDERABLES Final Resul t [facility] CLIA# [id number] [place] [address] documented in this encounter Visit Diagnoses Not on filedocumented in this encounter
--- OUTSIDE RECORDS SUMMARY | 2025-09-13 15:31 | XMS_ITS | Encounter Summary ---
Author Organization [facility] Address [address] [place] [address] Care Team Providers Care Drive Tester Name Role Phone Unavailable Primary Care Provider Unavailabl e Encounter Details Date Type Department Care Team (Late st Contact Info) Description 06/24/2021 Lab Requisition [facility] Laboratory Services [address] [place] [address] [place] [address] [place] [address] Social History Tobacco Use Types [...] - 10.5 K/uL 06/24/2021 6:33 AM CDT [facility] RBC 3.59(L) 3.90 - 4.90 M/uL 06/24/2021 6:33 AM CDT [facility] HEMOGLOBIN 9.8(L) 11.8 - 14.8 g/dL 06/24/2021 6:33 AM CDT [facility] HEMATOCRIT 30.2(L) 35.5 - 44.0 % 06/24/2021 6:33 AM CDT [facility] MCV 84.3 82.0 - 99.0 fL 06/24/2021 6:33 AM CDT [facility] MCH 27.3(L) 27.8 - 34.5 pg 06/24/2021 6:33 AM CDT [facility] MCHC 32.4(L) 32.5 - 35.5 g/dL 06/24/2021 6:33 AM CDT [facility] RDW 15.9(H) 11.5 - 14.5 % 06/24/2021 6:33 AM CDT [facility] PLATELETS 353 160 - 420 K/uL 06/24/2021 6:33 AM CDT [facility] MPV 8.2(L) 8.7 - 12.7 fL 06/24/2021 6:33 AM CDT [facility] NEUTROPHILS 54 % 06/24/2021 6:33 AM CDT [facility] LYMPHOCYTES 34 % 06/24/2021 6:33 AM CDT [facility] MONOCYTES 8 % 06/24/2021 6:33 AM CDT [facility] EOSINOPHILS 4 % 06/24/2021 6:33 AM CDT [facility] BASOPHILS 1 % 06/24/2021 6:33 AM CDT [facility] NEUTROPHIL ABSOLUTE 3.60 1.90 - 7.00 K/uL 06/24/2021 6:33 AM CDT [facility] LYMPHOCYTE ABSOLUTE 2.20 0.70 - 4.50 K/uL 06/24/2021 6:33 AM CDT [facility] MONOCYTE ABSOLUTE 0.50 0.10 - 1.30 K/uL 06/24/2021 6:33 AM CDT [facility] SERVICES [facility] EOSINOPHIL ABSOLUTE 0.20 0.00 - 0.70 K/uL 06/24/2021 6:33 AM CDT [facility] SERVICES [facility] BASOPHILS ABSOLUTE 0.10 0.00 - 0.20 K/uL 06/24/2021 6:33 AM CDT [facility] Blood 06/24/2021 4:30 AM CDT 06/24/2021 6:18 AM CDT us Nargis Guy MD HEMATOLOGY ORDERABLES Final Resu lt [facility] CLIA# [id number] [place] [address] * (ABNORMAL) COMPREHENSIVE METABOLIC PANEL (06/24/2021 4:30 AM CDT) SODIUM 140 136 - 145 mmol/L 06/24/2021 6:58 AM CDT [facility] POTASSIUM 4.6 3.4 - 5.1 mmol/L 06/24/2021 6:58 AM CDT [facility] CHLORIDE 105 98 - 107 mmol/L 06/24/2021 6:58 AM CDT [facility] CO2 22 22 - 29 mmol/L 06/24/2021 6:58 AM CDT [facility] CALCIUM 8.9 8.6 - 10.4 mg/dL 06/24/2021 6:58 AM CDT [facility] BUN 11 6 - 20 mg/dL 06/24/2021 6:58 AM CDT [facility] CREATININE 0.93 0.51 - 0.95 mg/dL 06/24/2021 6:58 AM CDT [facility] GLUCOSE 97 74 - 99 mg/dL 06/24/2021 6:58 AM CDT [facility] TOTAL PROTEIN 6.3 6.3 - 8.7 g/dL 06/24/2021 6:58 AM CDT [facility] ALBUMIN 2.7(L) 3.5 - 5.2 g/dL 06/24/2021 6:58 AM T [facility] BILIRUBIN TOTAL 0.2(L) 0.3 - 1.2 mg/dL 06/24/2021 6:58 AM T [facility] ALKALINE PHOSPHATASE 110 40 - 150 U/L 06/24/2021 6:58 AM CDT [facility] AST 24 0 - 33 U/L 06/24/2021 6:58 AM T [facility] ALT 20 0 - 33 U/L 06/24/2021 6:58 AM T [facility] GFR >60 mL/min/1.7 3 sq meter 06/24/2021 6:58 AM T [facility] Comment: eGFR has not been validated [...] meter 06/24/2021 6:58 AM CDT [facility] ANION GAP 13 8 - 16 mmol/L 06/24/2021 6:58 AM T [facility] Blood 06/24/2021 4:30 AM CDT 06/24/2021 6:18 AM CDT us Nargis Guy MD CHEMISTRY ORDERABLES Final Resul t [facility] CLIA# [id number] [place] [address] documented in this encounter Visit Diagnoses Not on filedocumented in this encounter
--- OUTSIDE RECORDS SUMMARY | 2025-09-13 15:31 | XMS_ITS | Encounter Summary ---
Author Organization [facility] Address [address] [place] [address] Care Team Providers Care Credentialer Name Role Phone Unavailable Primary Care Provider Unavailabl e Encounter Details Date Type Department Care Team (Late st Contact Info) Description 06/20/2021 Lab Requisition [facility] Laboratory Services [address] [place] [address] Social History Tobacco Use Types Packs/Day Years [...]
--- OUTSIDE RECORDS SUMMARY | 2025-09-13 15:31 | XMS_ITS | Clinical Summary ---
Author Organization [facility] [employer] Address [address] [place] [address] Care Team Providers Care Pen Ruler Operator Name Role Phone Karime Aguilera RN, Haresh K MD Primary Care Provider [phone] Source Comments [facility],non-owned Affiliates and Associated Physician Practices is amultiple site organization consisting of ambulatory clinics and hospital sitesin [place], [place], [place] and [place]. This disclosure is being madepursuant to the Care Everywhere program and may not contain all information available regarding this patient. Last updated 18.[facility] Allergies Active Allergy Reactions Criticality Noted Date [...] 1 8 Active Blood Glucose Monitoring Suppl (Tiempo Listo VERIO FLEX SYSTEM) w/Device KIT 2 Active TRULICITY 1.5 MG/0.5ML injection 2 Active ergocalciferol (DRISDOL) 1.25 MG (03403 UT) capsule ergocalciferol (vitamin D2) 1,250 mcg [...] 04/04/2025 2, 04/04/2022, 04/04/2022, Additional history exists COVID-19 VACCINE ( - season) 2025 INFLUENZA VACCINE (#1) 2025 09/08/2018, [...] POINT OF CARE (04/04/2022 8:36 AM CDT) Glucose WB/POC 84 70 - 106 mg/dL 04/04/2022 8:46 AM CDT [facility] Specimen Type Cap Fingerstick 2021 8:46 AM CDT [facility] Blood BLOOD SPECIMEN / Unknown 04/04/2022 8:36 AM CDT 04/04/2022 8:46 AM CDT Tin Khan MD LAB - POINT OF CARE ORDERAB LES Final Result [facility] [address] [place] [id number] from Last 3 Months or Most Recently Relevant to Health Maintenance Insurance [id number] [id number] [facility] Advance Directives * Full Code (Latest Code Status on File) Date Activated Date Inactivated Comments 05/07/2018 11:05 AM 05/08/2018 2:57 PM Care Teams Pen Ruler Operator Relationship Specialty Start Date End Date Gurvinder Renteria MD [address] [place] [address] PCP - General 01/01/22 Karime Aguilera, RN 05/07/18
--- OUTSIDE RECORDS SUMMARY | 2025-09-13 15:32 | XMS_ITS | Encounter Summary ---
Author Organization [facility] Address [address] [place] [address] Care Team Providers Care Micro Computer Specialist Name Role Phone Unavailable Primary Care Provider Unavailabl e Encounter Details Date Type Department Care Team (Late st Contact Info) Description 07/09/2021 Lab Requisition [facility] Laboratory Services [address] [place] [address] [facility], External Provider [address] [place] [address] Social History Tobacco Use Types Packs/Day Years [...] 20 - 40 mg/dL [facility]/09[facility]21 [facility] Blood Collection / Unknown 07/09/2021 4:00 AM CDT 07/09/2021 6:02 AM CDT us External Provider [facility] CHEMISTRY ORDERABLES Jennie inocencio Result [facility] CLIA# [id number] [address] [facility] [place] [address] * (ABNORMAL) CBC WITH DIFFERENTIAL (07/09/2021 4:00 AM CDT) WBC 7.3 4.5 - 10.5 K/uL 07/09/2021 6:20 AM CDT [facility] RBC 3.75(L) 3.90 - 4.90 M/uL 07/09/2021 6:20 AM CDT [facility] HEMOGLOBIN 10.0(L) 11.8 - 14.8 g/dL 07/09/2021 6:20 AM CDT [facility] HEMATOCRIT 31.5(L) 35.5 - 44.0 % 07/09/2021 6:20 AM CDT [facility] MCV 83.8 82.0 - 99.0 fL 07/09/2021 6:20 AM CDT [facility] MCH 26.8(L) 27.8 - 34.5 pg 07/09/2021 6:20 AM CDT [facility] MCHC 31.9(L) 32.5 - 35.5 g/dL 07/09/2021 6:20 AM CDT [facility] RDW 15.7(H) 11.5 - 14.5 % 07/09/2021 6:20 AM CDT [facility] PLATELETS 374 160 - 420 K/uL 07/09/2021 6:20 AM CDT [facility] MPV 7.8(L) 8.7 - 12.7 fL 07/09/2021 6:20 AM CDT [facility] [employer] [facility] NEUTROPHILS 52 % 07/09/2021 6:20 AM CDT [facility] LABORATORY SERVICES [facility] LYMPHOCYTES 36 % 07/09/2021 6:20 AM CDT [facility] LABORATORY SERVICES [facility] MONOCYTES 6 % 07/09/2021 6:20 AM CDT [facility] LABORATORY SERVICES [facility] EOSINOPHILS 5 % 07/09/2021 6:20 AM CDT [facility] LABORATORY SERVICES [facility] BASOPHILS 1 % 07/09/2021 6:20 AM CDT [facility] LABORATORY SERVICES [facility] NEUTROPHIL ABSOLUTE 3.80 1.90 - 7.00 K/uL 07/09/2021 6:20 AM CDT [facility] LABORATORY SERVICES [facility] LYMPHOCYTE ABSOLUTE 2.60 0.70 - 4.50 K/uL 07/09/2021 6:20 AM CDT [facility] LABORATORY SERVICES [facility] MONOCYTE ABSOLUTE 0.50 0.10 - 1.30 K/uL 07/09/2021 6:20 AM CDT [facility] LABORATORY SERVICES [facility] EOSINOPHIL ABSOLUTE 0.40 0.00 - 0.70 K/uL 07/09/2021 6:20 AM CDT [facility] LABORATORY SERVICES [facility] BASOPHILS ABSOLUTE 0.10 0.00 - 0.20 K/uL 07/09/2021 6:20 AM CDT [facility] LABORATORY SERVICES [facility] Blood Collection / Unknown 07/09/2021 4:00 AM CDT 07/09/2021 6:02 AM CDT us External Provider [facility] HEMATOLOGY ORDERABLES Fin al Result [facility]ORATORY [facility] CLIA# [id number] [place] [address] * (ABNORMAL) COMPREHENSIVE METABOLIC PANEL (07/09/2021 4:00 AM CDT) SODIUM 137 136 - 145 mmol/L 07/09/2021 6:41 AM CDT [facility]ORATORY [facility] POTASSIUM 4.4 3.4 - 5.1 mmol/L 07/09/2021 6:41 AM CDT [facility] LABORATORY [facility] CHLORIDE 101 98 - 107 mmol/L 07/09/2021 6:41 AM [facility] CO2 24 22 - 29 mmol/L 07/09/2021 6:41 AM [facility] CALCIUM 9.2 8.6 - 10.4 mg/dL 07/09/2021 6:41 AM [facility] BUN 15 6 - 20 mg/dL 07/09/2021 6:41 AM [facility] CREATININE 0.92 0.51 - 0.95 mg/dL 07/09/2021 6:41 AM [facility] GLUCOSE 129(H) 74 - 99 mg/dL 07/09/2021 6:41 AM [facility] TOTAL PROTEIN 6.5 6.3 - 8.7 g/dL 07/09/2021 6:41 AM [facility] ALBUMIN 3.1(L) 3.5 - 5.2 g/dL 07/09/2021 6:41 AM [facility] BILIRUBIN TOTAL <0.2(L) 0.2 - 1.1 mg/dL 07/09/2021 6:41 AM [facility] ALKALINE PHOSPHATASE 99 40 - 150 U/L 07/09/2021 6:41 AM [facility] AST 15 0 - 33 U/L 07/09/2021 6:41 AM [facility] ALT 11 0 - 33 U/L 07/09/2021 6:41 AM [facility] GFR >60 mL/min/1.7 3 sq meter 07/09/2021 6:41 AM [facility] Comment: eGFR has [...] 3 sq meter 07/09/2021 6:41 AM CDT [facility] LABORATORY SERVICES [facility] ANION GAP 12 8 - 16 mmol/L 07/09/2021 6:41 AM CDT [facility] LABORATORY [facility] Blood Collection / Unknown 07/09/2021 4:00 AM CDT 07/09/2021 6:02 AM CDT us External Provider [facility] CHEMISTRY ORDERABLES Jennie l Result [facility] [employer] [facility] CLIA# [id number] [place] [address] documented in this encounter Visit Diagnoses Not on filedocumented in this encounter
--- OUTSIDE RECORDS SUMMARY | 2025-09-13 15:32 | XMS_ITS | Encounter Summary ---
Author Organization [facility] Address [address] [place] [address] Care Team Providers Care Manager Business Operations Name Role Phone Unavailable Primary Care Provider Unavailabl e Encounter Details Date Type Department Care Team (Late st Contact Info) Description 06/21/2021 Lab Requisition [facility] Laboratory Services [address] [place] [address] [place] [address] [place] [address] Social History Tobacco Use Types [...] - 10.5 K/uL 06/21/2021 1:36 PM CDT [facility]ORATORY [facility] RBC 3.66(L) 3.90 - 4.90 M/uL 06/21/2021 1:36 PM [facility] LABORATORY [facility] HEMOGLOBIN 10.1(L) 11.8 - 14.8 g/dL 06/21/2021 1:36 PM [facility] LABORATORY [facility] HEMATOCRIT 31.1(L) 35.5 - 44.0 % 06/21/2021 1:36 PM CDT [facility]ORATORY [facility] MCV 84.9 82.0 - 99.0 fL 06/21/2021 1:36 [facility] MCH 27.5(L) 27.8 - 34.5 pg 06/21/2021 1:36 PM [facility] LABORATORY [facility] MCHC 32.3(L) 32.5 - 35.5 g/dL 06/21/2021 1:36 PM [facility] LABORATORY [facility] RDW 15.7(H) 11.5 - 14.5 % 06/21/2021 1:36 PM CDT [facility] LABORATORY [facility] PLATELETS 397 160 - 420 K/uL 06/21/2021 1:36 PM [facility] LABORATORY [facility] MPV 7.6(L) 8.7 - 12.7 fL 06/21/2021 1:36 PM CDT [facility] LABORATORY [facility] NEUTROPHILS 64 % 06/21/2021 1:36 PM CDT [facility] LABORATORY [facility] LYMPHOCYTES 26 % 06/21/2021 1:36 PM CDT [facility] LABORATORY [facility] MONOCYTES 7 % 06/21/2021 1:36 PM CDT [facility] LABORATORY SERVICES [facility] EOSINOPHILS 3 % 06/21/2021 1:36 PM CDT [facility] LABORATORY [facility] BASOPHILS 0 % 06/21/2021 1:36 PM CDT [facility] LABORATORY [facility] NEUTROPHIL ABSOLUTE 5.00 1.90 - 7.00 K/uL 06/21/2021 1:36 PM CDT [facility] LYMPHOCYTE ABSOLUTE 2.00 0.70 - 4.50 K/uL 06/21/2021 1:36 PM CDT [facility] MONOCYTE ABSOLUTE 0.50 0.10 - 1.30 K/uL 06/21/2021 1:36 PM CDT [facility]ORATORY SERVICES [facility] EOSINOPHIL ABSOLUTE 0.30 0.00 - 0.70 K/uL 06/21/2021 1:36 PM CDT [facility]ORATORY SERVICES [facility] BASOPHILS ABSOLUTE 0.00 0.00 - 0.20 K/uL 06/21/2021 1:36 PM CDT [facility] Blood Collection / Unknown 06/21/2021 11:20 AM CDT 06/21/2021 1:28 PM CDT Nargis Guy MD HEMATOLOGY ORDERABLES Final Resu lt [facility] CLIA# [id number] [place] [address] * (ABNORMAL) COMPREHENSIVE METABOLIC PANEL (06/21/2021 11:20 AM CDT) Pathologist [facility] SODIUM 137 136 - 145 mmol/L 06/21/2021 2:02 PM CDT [facility] POTASSIUM 4.3 3.4 - 5.1 mmol/L 06/21/2021 2:02 PM CDT [facility] CHLORIDE 102 98 - 107 mmol/L 06/21/2021 2:02 PM CDT [facility] CO2 25 22 - 29 mmol/L 06/21/2021 2:02 PM CDT [facility] CALCIUM 9.2 8.6 - 10.4 mg/dL 06/21/2021 2:02 PM CDT [facility] BUN 11 6 - 20 mg/dL 06/21/2021 2:02 PM CDT [facility] CREATININE 0.90 0.51 - 0.95 mg/dL 06/21/2021 2:02 PM CDT [facility] GLUCOSE 130(H) 74 - 99 mg/dL 06/21/2021 2:02 PM CDT [facility] TOTAL PROTEIN 6.6 6.3 - 8.7 g/dL 06/21/2021 2:02 PM T [facility] ALBUMIN 2.8(L) 3.5 - 5.2 g/dL 06/21/2021 2:02 PM T [facility] BILIRUBIN TOTAL 0.2(L) 0.3 - 1.2 mg/dL 06/21/2021 2:02 PM T [facility] ALKALINE PHOSPHATASE 120 40 - 150 U/L 06/21/2021 2:02 PM T [facility] AST 27 0 - 33 U/L 06/21/2021 2:02 PM [facility] ALT 23 0 - 33 U/L 06/21/2021 2:02 PM T [facility] GFR >60 mL/min/1.7 3 sq meter 06/21/2021 2:02 PM T [facility] Comment: eGFR has [...] 3 sq meter 06/21/2021 2:02 PM CDT [facility] ANION GAP 10 8 - 16 mmol/L 06/21/2021 2:02 PM T [facility] Blood Collection / Unknown 06/21/2021 11:20 AM CDT 06/21/2021 1:28 PM CDT us Nargis Guy MD CHEMISTRY ORDERABLES Final Resul t [facility] CLIA# [id number] [place] [address] documented in this encounter Visit Diagnoses Not on filedocumented in this encounter
--- OUTSIDE RECORDS SUMMARY | 2025-09-13 15:32 | XMS_ITS | Encounter Summary ---
Author Organization [facility] Address [address] [place] [address] Care Team Providers Care All Source Intelligence Name Role Phone Unavailable Primary Care Provider Unavailabl e Encounter Details Date Type Department Care Team (Late st Contact Info) Description 05/19/2021 Lab Requisition [facility] Laboratory Services [address] [place] [address] [facility], External Provider [address] [place] [address] Social History Tobacco Use Types Packs/Day Years [...] - 14.7 Seconds 05/19/2021 4:12 AM CDT [facility] INR 1.1 0.9 - 1.1 05/19/2021 4:12 AM CDT [facility] Blood Collection / Unknown 05/19/2021 3:20 AM CDT 05/19/2021 3:49 AM CDT External Provider [facility] HEMATOLOGY ORDERABLES Fin al Result [facility] CLIA# [id number] [place] [address] * (ABNORMAL) LACTIC ACID (05/19/2021 3:20 AM CDT) LACTIC ACID 4.5(H) <=2.0 mmol/L 05/19/2021 4:19 AM CDT [facility] Blood Collection / Unknown 05/19/2021 3:20 AM CDT 05/19/2021 3:49 AM CDT External Provider [facility] CHEMISTRY ORDERABLES Jennie l Result [facility] CLIA# [id number] [place] [address] * PTT (05/19/2021 3:20 AM CDT) PTT 23.8 23.1 - 37.1 seconds 05/19/2021 4:12 AM CDT [facility] Blood Collection / Unknown 05/19/2021 3:20 AM CDT 05/19/2021 3:49 AM CDT External Provider [facility] HEMATOLOGY ORDERABLES Fin al Result [facility] CLIA# [id number] [place] [address] * (ABNORMAL) CBC WITH DIFFERENTIAL (05/19/2021 3:20 AM CDT) WBC 26.7(H) 4.5 - 10.5 K/uL 05/19/2021 4:03 AM CDT [facility] RBC 2.46(L) 3.90 - 4.90 M/uL 05/19/2021 4:03 AM CDT [facility] HEMOGLOBIN 6.9(LL) 11.8 - 14.8 g/dL 05/19/2021 4:03 AM CDT [facility] HEMATOCRIT 22.1(L) 35.5 - 44.0 % 05/19/2021 4:03 AM CDT [facility] MCV 89.7 82.0 - 99.0 fL 05/19/2021 4:03 AM CDT [facility] MCH 27.8 27.8 - 34.5 pg 05/19/2021 4:03 AM CDT [facility] MCHC 31.0(L) 32.5 - 35.5 g/dL 05/19/2021 4:03 AM CDT [facility] RDW 15.4(H) 11.5 - 14.5 % 05/19/2021 4:03 AM CDT [facility] PLATELETS 329 160 - 420 K/uL 05/19/2021 4:03 AM CDT [facility] MPV 8.8 8.7 - 12.7 fL 05/19/2021 4:03 AM CDT [facility] NEUTROPHILS 57 % 05/19/2021 4:03 AM CDT [facility] LYMPHOCYTES 30 % 05/19/2021 4:03 AM CDT [facility] MONOCYTES 10 % 05/19/2021 4:03 AM CDT [facility] EOSINOPHILS 2 % 05/19/2021 4:03 AM CDT [facility] BASOPHILS 0 % 05/19/2021 4:03 AM CDT [facility] NEUTROPHIL ABSOLUTE 15.30(H) 1.90 - 7.00 K/uL 05/19/2021 4:03 AM CDT [facility] LYMPHOCYTE ABSOLUTE 8.10(H) 0.70 - 4.50 K/uL 05/19/2021 4:03 AM CDT [facility] MONOCYTE ABSOLUTE 2.60(H) 0.10 - 1.30 K/uL 05/19/2021 4:03 AM CDT [facility] EOSINOPHIL ABSOLUTE 0.60 0.00 - 0.70 K/uL 05/19/2021 4:03 AM CDT [facility] BASOPHILS ABSOLUTE 0.10 0.00 - 0.20 K/uL 05/19/2021 4:03 AM CDT [facility] Blood Collection / Unknown 05/19/2021 3:20 AM CDT 05/19/2021 3:49 AM CDT us External Provider [facility] HEMATOLOGY ORDERABLES Fin al Result [facility] CLIA# [id number] [place] [address] * (ABNORMAL) COMPREHENSIVE METABOLIC PANEL (05/19/2021 3:20 AM CDT) SODIUM 134(L) 136 - 145 mmol/L 05/19/2021 4:26 AM CDT [facility] POTASSIUM 6.6(HH) 3.4 - 5.1 mmol/L 05/19/2021 4:26 AM CDT [facility] CHLORIDE 99 98 - 107 mmol/L 05/19/2021 4:26 AM CDT [facility] CO2 18(L) 22 - 29 mmol/L 05/19/2021 4:26 AM CDT [facility] CALCIUM 8.7 8.6 - 10.4 mg/dL 05/19/2021 4:26 AM [facility] BUN 64(H) 6 - 20 mg/dL 05/19/2021 4:26 AM [facility] CREATININE 4.16(H) 0.51 - 0.95 mg/dL 05/19/2021 4:26 AM [facility] GLUCOSE 280(H) 74 - 99 mg/dL 05/19/2021 4:26 AM [facility] TOTAL PROTEIN 6.6 6.3 - 8.7 g/dL 05/19/2021 4:26 AM [facility] ALBUMIN 2.5(L) 3.5 - 5.2 g/dL 05/19/2021 4:26 AM [facility] BILIRUBIN TOTAL 0.2(L) 0.3 - 1.2 mg/dL 05/19/2021 4:26 AM [facility] ALKALINE PHOSPHATASE 94 40 - 150 U/L 05/19/2021 4:26 AM [facility] AST 31 0 - 33 U/L 05/19/2021 4:26 AM [facility] ALT 19 0 - 33 U/L 05/19/2021 4:26 AM [facility] GFR 11 mL/min/1.7 3 sq meter 05/19/2021 4:26 AM [facility] Comment: eGFR [...] mL/min/1.7 3 sq meter 05/19/2021 4:26 AM [facility] ANION GAP 17(H) 8 - 16 mmol/L 05/19/2021 4:26 AM CDT [facility] Blood Collection / Unknown 05/19/2021 3:20 AM CDT 05/19/2021 3:49 AM CDT us External Provider [facility] CHEMISTRY ORDERABLES Jennie painter Result [facility] CLIA# [id number] [place] [address] documented in this encounter Visit Diagnoses Not on filedocumented in this encounter
--- OUTSIDE RECORDS SUMMARY | 2025-09-13 15:32 | XMS_ITS | Encounter Summary ---
Author Organization [facility] Address [address] [place] [address] Care Team Providers Care Health And Physical Education Teacher Name Role Phone Unavailable Primary Care Provider Unavailabl e Encounter Details Date Type Department Care Team (Late st Contact Info) Description 06/30/2021 Lab Requisition [facility] Laboratory Services [address] [place] [address] [place] [address] [place] [address] Social History Tobacco Use Types [...] - 10.5 K/uL 06/30/2021 11:22 AM CDT [facility] RBC 3.44(L) 3.90 - 4.90 M/uL 06/30/2021 11:22 AM CDT [facility] HEMOGLOBIN 9.4(L) 11.8 - 14.8 g/dL 06/30/[facility]21 [facility] HEMATOCRIT 29.4(L) 35.5 - 44.0 % 06/30/2021 11:22 AM CDT [facility] MCV 85.4 82.0 - 99.0 fL 06/30/2021 11:22 AM CDT [facility] MCH 27.3(L) 27.8 - 34.5 pg 06/30/2021 11:[facility] MCHC 32.0(L) 32.5 - 35.5 g/dL 06/30/2021 11:[facility] RDW 15.6(H) 11.5 - 14.5 % 06/30/2021 11:22 AM CDT [facility] PLATELETS 408 160 - 420 K/uL 06/30/2021 11:[facility] MPV 7.9(L) 8.7 - 12.7 fL 06/30/2021 11:22 AM CDT [facility] NEUTROPHILS 53 % 06/30/2021 11:22 AM CDT [facility] LYMPHOCYTES 33 % 06/30/2021 11:22 AM CDT [facility] MONOCYTES 8 % 06/30/2021 11:22 AM CDT [facility] EOSINOPHILS 5 % 06/30/2021 11:22 AM CDT [facility] BASOPHILS 1 % 06/30/2021 11:22 AM CDT [facility] NEUTROPHIL ABSOLUTE 3.50 1.90 - 7.00 K/uL 06/30/2021 11:22 AM CDT [facility] LYMPHOCYTE ABSOLUTE 2.20 0.70 - 4.50 K/uL 06/30/2021 11:22 AM CDT [facility] MONOCYTE ABSOLUTE 0.50 0.10 - 1.30 K/uL 06/30/2021 11:22 AM CDT [facility] EOSINOPHIL ABSOLUTE 0.30 0.00 - 0.70 K/uL 06/30/2021 11:22 AM CDT [facility] SERVICES [facility] BASOPHILS ABSOLUTE 0.10 0.00 - 0.20 K/uL 06/30/2021 11:22 AM CDT [facility] Blood Collection / Unknown 06/30/2021 3:45 AM CDT 06/30/2021 10:45 AM CDT Nargis Guy MD HEMATOLOGY ORDERABLES Final Resu lt [facility] CLIA# [id number] [place] [address] * (ABNORMAL) COMPREHENSIVE METABOLIC PANEL (06/30/2021 3:45 AM CDT) SODIUM 139 136 - 145 mmol/L 06/30/2021 11:40 AM CDT [facility] POTASSIUM 4.3 3.4 - 5.1 mmol/L 06/30/2021 11:40 AM CDT [facility] CHLORIDE 103 98 - 107 mmol/L 06/30/2021 11:40 AM CDT [facility] CO2 23 22 - 29 mmol/L 06/30/2021 11:40 AM CDT [facility] CALCIUM 8.7 8.6 - 10.4 mg/dL 06/30/2021 11:40 AM CDT [facility] BUN 12 6 - 20 mg/dL 06/30/2021 11:40 AM CDT [facility] SERVICES [facility] CREATININE 0.89 0.51 - 0.95 mg/dL 06/30/2021 11:40 AM CDT [facility] GLUCOSE 107(H) 74 - 99 mg/dL 06/30/2021 11:40 AM CDT [facility] TOTAL PROTEIN 6.0(L) 6.3 - 8.7 g/dL 06/30/2021 11:40 AM [facility] ALBUMIN 2.7(L) 3.5 - 5.2 g/dL 06/30/2021 11:40 AM T [facility] BILIRUBIN TOTAL <0.2(L) 0.2 - 1.1 mg/dL 06/30/2021 11:40 AM T [facility] ALKALINE PHOSPHATASE 110 40 - 150 U/L 06/30/2021 11:40 AM T [facility] AST 23 0 - 33 U/L 06/30/2021 11:40 AM [facility] ALT 18 0 - 33 U/L 06/30/2021 11:40 AM [facility] GFR >60 mL/min/1.7 3 sq meter 06/30/2021 11:40 AM T [facility] Comment: eGFR has not been [...] 3 sq meter 06/30/2021 11:40 AM CDT [facility] ANION GAP 13 8 - 16 mmol/L 06/30/2021 11:40 AM T [facility] Blood Collection / Unknown 06/30/2021 3:45 AM CDT 06/30/2021 10:45 AM CDT us Nargis Guy MD CHEMISTRY ORDERABLES Final Resul t [facility] CLIA# [id number] [place] [address] documented in this encounter Visit Diagnoses Not on filedocumented in this encounter
--- OUTSIDE RECORDS SUMMARY | 2025-09-13 15:32 | XMS_ITS | Encounter Summary ---
Author Organization [facility] Address [address] [place] [address] Care Team Providers Care Senior Hr Business Partner Name Role Phone Unavailable Primary Care Provider Unavailabl e Encounter Details Date Type Department Care Team (Late st Contact Info) Description 05/14/2021 Lab Requisition [facility] Laboratory Services [address] [place] [address] [place] [address] [place] [address] Social History Tobacco Use Types [...] - 10.5 K/uL 05/14/2021 6:03 AM CDT [facility] RBC 2.60(L) 3.90 - 4.90 M/uL 05/14/2021 6:03 AM [facility] HEMOGLOBIN 7.6(L) 11.8 - 14.8 g/dL 05/14/2021 6:03 AM [facility] HEMATOCRIT 22.9(L) 35.5 - 44.0 % 05/14/2021 6:03 [facility] MCV 88.1 82.0 - 99.0 fL 05/14/2021 6:03 AM [facility] MCH 29.3 27.8 - 34.5 pg 05/14/2021 6:03 AM [facility] MCHC 33.3 32.5 - 35.5 g/dL 05/14/2021 6:03 AM [facility] RDW 15.0(H) 11.5 - 14.5 % 05/14/2021 6:03 AM CDT [facility] PLATELETS 168 160 - 420 K/uL 05/14/2021 6:03 AM [facility] MPV 8.5(L) 8.7 - 12.7 fL 05/14/2021 6:03 AM CDT [facility] NEUTROPHILS 56 % 05/14/2021 6:03 AM CDT [facility] LYMPHOCYTES 26 % 05/14/2021 6:03 AM CDT [facility] MONOCYTES 13 % 05/14/2021 6:03 AM CDT [facility] LABORATORY SERVICES [facility] EOSINOPHILS 5 % 05/14/2021 6:03 AM CDT [facility] BASOPHILS 1 % 05/14/2021 6:03 AM CDT [facility] NEUTROPHIL ABSOLUTE 3.70 1.90 - 7.00 K/uL 05/14/2021 6:03 AM [facility] LYMPHOCYTE ABSOLUTE 1.70 0.70 - 4.50 K/uL 05/14/2021 6:03 AM CDT [facility]AT[facility] MONOCYTE ABSOLUTE 0.80 0.10 - 1.30 K/uL 05/14/2021 6:03 AM CDT [facility] LABORATORY SERVICES - [facility] EOSINOPHIL ABSOLUTE 0.30 0.00 - 0.70 K/uL 05/14/2021 6:03 AM CDT [facility] LABORATORY SERVICES - [facility] BASOPHILS ABSOLUTE 0.10 0.00 - 0.20 K/uL 05/14/2021 6:03 AM CDT [facility]ATORY [facility] Blood BLOOD SPECIMEN / Unknown Collection / Unknown 05/14/2021 3:30 AM CDT 05/14/2021 5:27 AM CDT Nargis Guy MD HEMATOLOGY ORDERABLES Final Resu lt [facility] CLIA# [id number] [place] [address] * (ABNORMAL) BASIC METABOLIC PANEL (05/14/2021 3:30 AM CDT) Pathologist [facility] SODIUM 140 136 - 145 mmol/L 05/14/2021 6:38 AM CDT [facility] POTASSIUM 4.2 3.4 - 5.1 mmol/L 05/14/2021 6:38 AM CDT [facility]ORATORY [facility] CHLORIDE 105 98 - 107 mmol/L 05/14/2021 6:38 AM CDT [facility]ORY [facility] CO2 21(L) 22 - 29 mmol/L 05/14/2021 6:38 AM CDT [facility]ORATORY [facility] CALCIUM 8.9 8.6 - 10.4 mg/dL 05/14/2021 6:38 AM CDT [facility]ORATORY [facility] BUN 22(H) 6 - 20 mg/dL 05/14/2021 6:38 AM CDT [facility] LABORATORY [facility] CREATININE 2.50(H) 0.51 - 0.95 mg/dL 05/14/2021 6:38 AM CDT [facility] LABORATORY [facility] GLUCOSE 96 74 - 99 mg/dL 05/14/2021 6:38 AM CDT [facility] GFR 20 mL/min/1.7 3 sq meter 05/14/2021 6:38 AM CDT [facility] Comment: eGFR has not been validated [...] 3 sq meter 05/14/2021 6:38 AM CDT [facility] ANION GAP 14 8 - 16 mmol/L 05/14/2021 6:38 AM CDT [facility] Blood BLOOD SPECIMEN / Unknown Collection / Unknown 05/14/2021 3:30 AM CDT 05/14/2021 5:27 AM CDT us Nargis Guy MD CHEMISTRY ORDERABLES Final Resul t [facility] [employer] [facility] CLIA# [id number] [place] [address] documented in this encounter Visit Diagnoses Not on filedocumented in this encounter
--- OUTSIDE RECORDS SUMMARY | 2025-09-13 15:32 | XMS_ITS | Encounter Summary ---
Author Organization [facility] Address [address] [place] [address] Care Team Providers Care Clamp Remover Name Role Phone Unavailable Primary Care Provider Unavailabl e Encounter Details Date Type Department Care Team (Late st Contact Info) Description 05/16/2021 Lab Requisition [facility] Laboratory Services [address] [place] [address] [place] [address] [place] [address] Social History Tobacco Use Types [...] - 145 mmol/L 05/16/2021 12:14 PM CDT [facility] POTASSIUM 4.9 3.4 - 5.1 mmol/L 05/16/2021 12:14 PM CDT [facility] CHLORIDE 99 98 - 107 mmol/L 05/16/2021 12:14 PM CDT [facility] CO2 23 22 - 29 mmol/L 05/16/2021 12:14 PM CDT [facility] CALCIUM 8.6 8.6 - 10.4 mg/dL 05/16/2021 12:14 PM CDT [facility] BUN 27(H) 6 - 20 mg/dL 05/16/2021 12:14 PM CDT [facility] CREATININE 2.53(H) 0.51 - 0.95 mg/dL 05/16/2021 12:14 PM CDT [facility] GLUCOSE 126(H) 74 - 99 mg/dL 05/16/2021 12:14 PM T [facility] GFR 19 mL/min/1.7 3 sq meter 05/16/2021 12:14 PM T [facility] Comment: eGFR has not [...] 3 sq meter 05/16/2021 12:14 PM CDT [facility] ANION GAP 14 8 - 16 mmol/L 05/16/2021 12:14 PM CDT [facility] Blood 05/16/2021 3:00 AM CDT 05/16/2021 11:44 AM CDT us Nargis Guy MD CHEMISTRY ORDERABLES Final Resul t [facility] CLIA# [id number] [place] [address] documented in this encounter Visit Diagnoses Not on filedocumented in this encounter
--- OUTSIDE RECORDS SUMMARY | 2025-09-13 15:32 | XMS_ITS | Encounter Summary ---
Author Organization [facility] Address [address] [place] [address] Care Team Providers Care Management Coordinator Name Role Phone Karime Aguilera RN, Haresh K MD Primary Care Provider [phone] Reason for Visit * Reason Onset Date Comments Question 01/18/2025 Encounter Details Date Type Department Care Team (Late st Contact Info) Description 01/18/2025 Telephone [facility] - LOCOMOTIVE SWITCH OPERATOR [address] [facility] [address] [place] [address] [place] [address] [facility] [address] [place] [address] Question Social History Tobacco Use [...] message asking her to return our call. 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 she is having burning with urination at least 10 + times daily.. pt was unable to give a specimen while she was there.. and was informed to call the office CB# [phone] NESS OBJECTS REPORT DEVELOPER documented in this encounter Plan of Treatment Not on file documented as of this encounter Visit Diagnoses Not on filedocumented in this encounter Care Teams Management Coordinator Relationship Specialty Start Date End Date Gurvinder Renteria MD [address] [place] [address] PCP - General 01/01/22 Karime Aguilera RN 05/07/18 documented as of this encounter
--- OUTSIDE RECORDS SUMMARY | 2025-09-13 15:32 | XMS_ITS | Encounter Summary ---
Author Organization [facility] Address [address] [place] [address] Care Team Providers Care Psych Arnp Name Role Phone Unavailable Primary Care Provider Unavailabl e Encounter Details Date Type Department Care Team (Late st Contact Info) Description 07/05/2021 Lab Requisition [facility] Laboratory Services [address] [place] [address] [place] [address] [place] [address] Social History Tobacco Use Types [...] - 10.5 K/uL 07/05/2021 10:39 AM CDT [facility] RBC 3.78(L) 3.90 - 4.90 M/uL 07/05/2021 10:39 AM [facility] HEMOGLOBIN 10.0(L) 11.8 - 14.8 g/dL 07/05/2021 10:39 AM [facility] HEMATOCRIT 31.8(L) 35.5 - 44.0 % 07/05/2021 10:39 AM CDT [facility] MCV 84.2 82.0 - 99.0 fL 07/05/2021 10:39 AM [facility] MCH 26.5(L) 27.8 - 34.5 pg 07/05/2021 10:39 AM [facility] MCHC 31.5(L) 32.5 - 35.5 g/dL 07/05/2021 10:39 AM [facility] RDW 15.4(H) 11.5 - 14.5 % 07/05/2021 10:39 AM CDT [facility] PLATELETS 368 160 - 420 K/uL 07/05/2021 10:39 AM [facility] MPV 7.5(L) 8.7 - 12.7 fL 07/05/2021 10:39 AM CDT [facility] NEUTROPHILS 53 % 07/05/2021 10:39 AM CDT [facility] LYMPHOCYTES 33 % 07/05/2021 10:39 AM CDT [facility] MONOCYTES 8 % 07/05/2021 10:39 AM CDT [facility] SERVICES [facility] EOSINOPHILS 5 % 07/05/2021 10:39 AM CDT [facility] BASOPHILS 1 % 07/05/2021 10:39 AM CDT [facility] NEUTROPHIL ABSOLUTE 3.40 1.90 - 7.00 K/uL 07/05/2021 10:39 AM CDT [facility] LYMPHOCYTE ABSOLUTE 2.20 0.70 - 4.50 K/uL 07/05/2021 10:39 AM CDT [facility] MONOCYTE ABSOLUTE 0.50 0.10 - 1.30 K/uL 07/05/2021 10:39 AM CDT [facility] SERVICES - [facility] EOSINOPHIL ABSOLUTE 0.30 0.00 - 0.70 K/uL 07/05/2021 10:39 AM CDT [facility] - [facility] BASOPHILS ABSOLUTE 0.10 0.00 - 0.20 K/uL 07/05/2021 10:39 AM CDT [facility] Blood Collection / Unknown 07/05/2021 6:00 AM CDT 07/05/2021 10:24 AM CDT Nargis Guy MD HEMATOLOGY ORDERABLES Final Resu lt [facility] CLIA# [id number] [place] [address] * (ABNORMAL) COMPREHENSIVE METABOLIC PANEL (07/05/2021 6:00 AM CDT) SODIUM 139 136 - 145 mmol/L 07/05/2021 11:04 AM CDT [facility] POTASSIUM 4.5 3.4 - 5.1 mmol/L 07/05/2021 11:04 AM CDT [facility] SERVICES [facility] CHLORIDE 102 98 - 107 mmol/L 07/05/2021 11:04 AM CDT [facility] CO2 25 22 - 29 mmol/L 07/05/2021 11:04 AM CDT [facility] CALCIUM 9.1 8.6 - 10.4 mg/dL 07/05/2021 11:04 AM CDT [facility] BUN 14 6 - 20 mg/dL 07/05/2021 11:04 AM CDT [facility] CREATININE 0.95 0.51 - 0.95 mg/dL 07/05/2021 11:04 AM CDT [facility] SERVICES [facility] GLUCOSE 101(H) 74 - 99 mg/dL 07/05/2021 11:04 AM CDT [facility] TOTAL PROTEIN 6.1(L) 6.3 - 8.7 g/dL 07/05/2021 11:04 AM [facility] ALBUMIN 2.9(L) 3.5 - 5.2 g/dL 07/05/2021 11:04 AM [facility] BILIRUBIN TOTAL <0.2(L) 0.2 - 1.1 mg/dL 07/05/2021 11:04 AM [facility] ALKALINE PHOSPHATASE 107 40 - 150 U/L 07/05/2021 11:04 AM [facility] AST 16 0 - 33 U/L 07/05/2021 11:04 AM [facility] ALT 13 0 - 33 U/L 07/05/2021 11:04 AM [facility] GFR 60 mL/min/1.7 3 sq meter 07/05/2021 11:04 AM [facility] Comment: eGFR has [...] 3 sq meter 07/05/2021 11:04 AM T [facility] ANION GAP 12 8 - 16 mmol/L 07/05/2021 11:04 AM [facility] Blood Collection / Unknown 07/05/2021 6:00 AM CDT 07/05/2021 10:24 AM CDT us Nargis Guy MD CHEMISTRY ORDERABLES Final Resul t [facility] CLIA# [id number] [place] [address] documented in this encounter Visit Diagnoses Not on filedocumented in this encounter
--- OUTSIDE RECORDS SUMMARY | 2025-09-13 15:32 | XMS_ITS | Encounter Summary ---
Author Organization [facility] Health Address [address] [place] [address] Care Team Providers Care Paste Mixer Name Role Phone Karime Aguilera RN, Haresh K MD Primary Care Provider [phone] Reason for Visit * Reason Onset Date Comments Question 10/29/2023 Encounter Details Date Type Department Care Team (Late st Contact Info) Description 10/29/2023 Telephone [facility] [employer] [address] [place] [address] Christy Khan MD [address] [facility] [address] [place] [address] Question Social History Tobacco Use [...] Yesenia Shin RN - 10/29/2023 1:16 PM KEYPUNCHER RN returned pt call & gathered further [...] pt's provider MD Alonso of above issues. UNCHER * Telephone Encounter - Ferny Pierre - 10/29/2023 12:40 PM CST Patient called stating she has a potential yeast infection and wanted to see about getting a prescription. Offered patient an appt, she preferred Dr Khan, put her down for next available on 11/26. UNCHER documented in this encounter Plan of Treatment Not on file documented as of this encounter Visit Diagnoses Not on filedocumented in this encounter Care Teams Paste Mixer Relationship Specialty Start Date End Date Gurvinder Renetria MD [address] [place] [address] PCP - General 01/01/22 Karime Aguilera, RN 05/07/18 documented as of this encounter
--- OUTSIDE RECORDS SUMMARY | 2025-09-13 15:32 | XMS_ITS | Encounter Summary ---
Author Organization [facility] Address [address] [place] [address] Care Team Providers Care School Janitor Name Role Phone Unavailable Primary Care Provider Unavailabl e Encounter Details Date Type Department Care Team (Late st Contact Info) Description 07/08/[address] [facility] Laboratory Services [address] [place] [address] [place] [address] [place] [address] Social History Tobacco Use Types [...] - 10.5 K/uL 07/08/2021 7:17 AM CDT [facility] LABORATORY [facility] RBC 3.47(L) 3.90 - 4.90 M/uL 07/08/2021 7:17 AM CDT [facility] LABORATORY [facility] HEMOGLOBIN 9.4(L) 11.8 - 14.8 g/dL 07/08/2021 7:[facility] HEMATOCRIT 29.2(L) 35.5 - 44.0 % 07/08/2021 7:17 AM CDT [facility] LABORATORY [facility] MCV 84.2 82.0 - 99.0 fL 07/08/2021 7:17 AM CDT [facility] LABORATORY [facility] MCH 27.1(L) 27.8 - 34.5 pg 07/08/2021 7:17 [facility] MCHC 32.1(L) 32.5 - 35.5 g/dL 07/08/2021 7:17 AM [facility] RDW 15.8(H) 11.5 - 14.5 % 07/08/2021 7:17 AM CDT [facility] LABORATORY [facility] PLATELETS 368 160 - 420 K/uL 07/08/2021 7:17 AM [facility] MPV 7.6(L) 8.7 - 12.7 fL 07/08/2021 7:17 AM CDT [facility] LABORATORY [facility] NEUTROPHILS 55 % 07/08/2021 7:17 AM CDT [facility] LABORATORY [facility] LYMPHOCYTES 32 % 07/08/2021 7:17 AM CDT [facility] LABORATORY SERVICES [facility] MONOCYTES 7 % 07/08/2021 7:17 AM CDT [facility] LABORATORY SERVICES [facility] EOSINOPHILS 5 % 07/08/2021 7:17 AM CDT [facility] LABORATORY SERVICES [facility] BASOPHILS 1 % 07/08/2021 7:17 AM CDT [facility] LABORATORY [facility] NEUTROPHIL ABSOLUTE 3.50 1.90 - 7.00 K/uL 07/08/2021 7:17 AM CDT [facility] LABORATORY [facility] LYMPHOCYTE ABSOLUTE 2.00 0.70 - 4.50 K/uL 07/08/2021 7:17 AM CDT [facility] LABORATORY [facility] MONOCYTE ABSOLUTE 0.50 0.10 - 1.30 K/uL 07/08/2021 7:17 AM CDT [facility] LABORATORY SERVICES [facility] EOSINOPHIL ABSOLUTE 0.30 0.00 - 0.70 K/uL 07/08/2021 7:17 AM CDT [facility] LABORATORY SERVICES [facility] BASOPHILS ABSOLUTE 0.00 0.00 - 0.20 K/uL 07/08/2021 7:17 AM CDT [facility] LABORATORY [facility] Blood Collection / Unknown 07/08/2021 5:30 AM CDT 07/08/2021 6:13 AM CDT Nargis Guy MD HEMATOLOGY ORDERABLES Final Resu lt [facility] CLIA# [id number] [place] [address] * (ABNORMAL) COMPREHENSIVE METABOLIC PANEL (07/08/2021 5:30 AM CDT) SODIUM 137 136 - 145 mmol/L 07/08/2021 7:41 AM CDT [facility] LABORATORY [facility] POTASSIUM 4.2 3.4 - 5.1 mmol/L 07/08/2021 7:41 AM CDT [facility] LABORATORY [facility] CHLORIDE 102 98 - 107 mmol/L 07/08/2021 7:41 AM CDT [facility] LABORATORY [facility] CO2 24 22 - 29 mmol/L 07/08/2021 7:41 AM CDT [facility] LABORATORY [facility] CALCIUM 8.9 8.6 - 10.4 mg/dL 07/08/2021 7:41 AM CDT [facility] LABORATORY [facility] BUN 12 6 - 20 mg/dL 07/08/2021 7:41 AM CDT [facility] LABORATORY [facility] CREATININE 0.87 0.51 - 0.95 mg/dL 07/08/2021 7:41 AM CDT [facility] LABORATORY [facility] GLUCOSE 122(H) 74 - 99 mg/dL 07/08/2021 7:41 AM CDT [facility] LABORATORY [facility] TOTAL PROTEIN 6.0(L) 6.3 - 8.7 g/dL 07/08/2021 7:41 AM [facility] ALBUMIN 2.8(L) 3.5 - 5.2 g/dL 07/08/2021 7:41 AM [facility] BILIRUBIN TOTAL 0.2 0.2 - 1.1 mg/dL 07/08/2021 7:41 AM T [facility] ALKALINE PHOSPHATASE 92 40 - 150 U/L 07/08/2021 7:41 AM T [facility] AST 13 0 - 33 U/L 07/08/2021 7:41 AM [facility] ALT 10 0 - 33 U/L 07/08/2021 7:41 AM [facility] GFR >60 mL/min/1.7 3 sq meter 07/08/2021 7:41 AM [facility] [...] 3 sq meter 07/08/2021 7:41 AM CDT [facility] ANION GAP 11 8 - 16 mmol/L 07/08/2021 7:41 AM T [facility] Blood Collection / Unknown 07/08/2021 5:30 AM CDT 07/08/2021 6:13 AM CDT us Nargis Guy MD CHEMISTRY ORDERABLES Final Resul t [facility] CLIA# [id number] [place] [address] documented in this encounter Visit Diagnoses Not on filedocumented in this encounter
--- OUTSIDE RECORDS SUMMARY | 2025-09-13 15:32 | XMS_ITS | Encounter Summary ---
Author Organization [facility] Address [address] [place] [address] Care Team Providers Care Web Production Designer Name Role Phone Unavailable Primary Care Provider Unavailabl e Encounter Details Date Type Department Care Team (Late st Contact Info) Description 07/19/2021 Lab Requisition [facility] Laboratory Services [address] [place] [address] [place] [address] [place] [address] Social History Tobacco Use Types [...] - 10.5 K/uL 07/19/2021 11:50 AM CDT [facility] LABORATORY [facility] RBC 3.66(L) 3.90 - 4.90 M/uL 07/19/2021 11:50 AM CDT [facility] LABORAT[facility] HEMOGLOBIN 9.6(L) 11.8 - 14.8 g/dL 07/19/2021 11:50 AM CDT [facility] LABORATORY SERVICES [facility] HEMATOCRIT 30.5(L) 35.5 - 44.0 % 07/19/2021 11:50 AM CDT [facility] LABORATORY SERVICES [facility] MCV 83.5 82.0 - 99.0 fL 07/19/2021 11:50 AM CDT [facility] LABORATORY SERVICES [facility] MCH 26.4(L) 27.8 - 34.5 pg 07/19/2021 11:50 AM CDT [facility] LABORATORY SERVICES [facility] MCHC 31.6(L) 32.5 - 35.5 g/dL 07/19/2021 11:50 AM CDT [facility] LABORATORY [facility] RDW 15.6(H) 11.5 - 14.5 % 07/19/2021 11:50 AM CDT [facility] LABORATORY SERVICES [facility] PLATELETS 383 160 - 420 K/uL 07/19/2021 11:50 AM CDT [facility] LABORATORY SERVICES [facility] MPV 8.0(L) 8.7 - 12.7 fL 07/19/2021 11:50 AM CDT [facility] LABORATORY SERVICES [facility] NEUTROPHILS 52 % 07/19/2021 11:50 AM CDT [facility] LABORATORY SERVICES [facility] LYMPHOCYTES 36 % 07/19/2021 11:50 AM CDT [facility] LABORATORY SERVICES [facility] MONOCYTES 6 % 07/19/2021 11:50 AM CDT [facility] LABORATORY SERVICES [facility] EOSINOPHILS 5 % 07/19/2021 11:50 AM CDT [facility] LABORATORY SERVICES [facility] BASOPHILS 1 % 07/19/2021 11:50 AM CDT [facility] LABORATORY SERVICES [facility] NEUTROPHIL ABSOLUTE 3.80 1.90 - 7.00 K/uL 07/19/2021 11:50 AM CDT [facility] LABORATORY SERVICES [facility] LYMPHOCYTE ABSOLUTE 2.70 0.70 - 4.50 K/uL 07/19/2021 11:50 AM CDT [facility] LABORATORY [facility] MONOCYTE ABSOLUTE 0.50 0.10 - 1.30 K/uL 07/19/2021 11:50 AM CDT [facility] LABORATORY SERVICES [facility] EOSINOPHIL ABSOLUTE 0.30 0.00 - 0.70 K/uL 07/19/2021 11:50 AM CDT [facility] LABORATORY SERVICES [facility] BASOPHILS ABSOLUTE 0.10 0.00 - 0.20 K/uL 07/19/2021 11:50 AM CDT [facility] LABORATORY [facility] Blood Collection / Unknown 07/19/2021 3:23 AM CDT 07/19/2021 11:47 AM CDT Nragis Guy MD HEMATOLOGY ORDERABLES Final Resu lt [facility] CLIA# [id number] [place] [address] * (ABNORMAL) COMPREHENSIVE METABOLIC PANEL (07/19/2021 3:23 AM CDT) SODIUM 138 136 - 145 mmol/L 07/19/2021 12:19 PM CDT [facility] POTASSIUM 4.4 3.4 - 5.1 mmol/L 07/19/2021 12:19 PM CDT [facility] LABORATORY [facility] CHLORIDE 101 98 - 107 mmol/L 07/19/2021 12:19 PM CDT [facility] CO2 24 22 - 29 mmol/L 07/19/2021 12:19 PM CDT [facility]OR[facility] CALCIUM 9.2 8.6 - 10.4 mg/dL 07/19/2021 12:19 PM CDT [facility] LABORAT[facility] BUN 18 6 - 20 mg/dL 07/19/2021 12:19 PM CDT [facility] CREATININE 0.98(H) 0.51 - 0.95 mg/dL 07/19/2021 12:19 PM CDT [facility] LABORAT[facility] GLUCOSE 102(H) 74 - 99 mg/dL 07/19/2021 12:19 PM CDT [facility] TOTAL PROTEIN 6.5 6.3 - 8.7 g/dL 07/19/2021 12:19 PM T [facility] ALBUMIN 3.1(L) 3.5 - 5.2 g/dL 07/19/2021 12:19 PM [facility] BILIRUBIN TOTAL <0.2(L) 0.2 - 1.1 mg/dL 07/19/2021 12:19 PM [facility] ALKALINE PHOSPHATASE 96 40 - 150 U/L 07/19/2021 12:19 PM [facility] AST 12 0 - 33 U/L 07/19/2021 12:19 PM [facility] ALT 8 0 - 33 U/L 07/19/2021 12:19 PM [facility] GFR 58 mL/min/1.7 3 sq meter 07/19/2021 12:19 PM [facility] Comment: eGFR has not been validated for [...] 3 sq meter 07/19/2021 12:19 PM CDT [facility] ANION GAP 13 8 - 16 mmol/L 07/19/2021 12:19 PM T [facility] Blood Collection / Unknown 07/19/2021 3:23 AM CDT 07/19/2021 11:48 AM CDT us Nargis Guy MD CHEMISTRY ORDERABLES Final Resul t [facility] CLIA# [id number] [place] [address] documented in this encounter Visit Diagnoses Not on filedocumented in this encounter
--- OUTSIDE RECORDS SUMMARY | 2025-09-13 15:32 | XMS_ITS | Encounter Summary ---
Author Organization [facility] Address [address] [place] [address] Care Team Providers Care Pumper Gager Apprentice Name Role Phone Unavailable Primary Care Provider Unavailabl e Encounter Details Date Type Department Care Team (Late st Contact Info) Description 06/21/2021 Lab Requisition [facility] Laboratory Services [address] [place] [address] [place] [address] [place] [address] Social History Tobacco Use Types [...] COLI(A) HAKEEM MCG/ML 06/23/2021 8:32 AM CDT [facility] Urine URINE SPECIMEN OBTAINED BY [...] MICROBIOLOGY - GENERAL ORDERABLE S Final Result [facility]# [id number] [address] [facility] [place] [address] * (ABNORMAL) URINALYSIS WITH REFLEX CULTURE (06/20/2021 8:08 PM CDT) COLOR UA Yellow Pale to Dark Yellow 06/21/2021 11:06 AM CDT [facility] [employer] [facility] CLARITY UA Slightly Cloudy(A) Clear 06/21/2021 11:06 AM CDT [facility] SPECIFIC GRAVITY UA 1.012 1.003 - 1.035 06/21/2021 11:06 AM CDT [facility] PH UA 5.0 5.0 - 8.0 06/21/2021 11:06 AM CDT [facility] LEUKOCYTE ESTERASE UA 1+(A) Negative 06/21/2021 11:06 AM [facility] NITRITE UA Positive(A) Negative 06/21/2021 11:06 AM [facility] PROTEIN UA Negative Negative 06/21/2021 11:06 AM T [facility] GLUCOSE UA 1+(A) Negative 06/21/2021 11:06 AM T [facility] KETONES UA Negative Negative 06/21/2021 11:06 AM T [facility] UROBILINOGEN UA Normal <2.0 mg/dL 11:06 AM T [facility] BILIRUBIN UA Negative Negative 06/21/2021 11:06 AM T [facility] BLOOD UA 1+(A) Negative 06/21/2021 11:06 AM [facility] WBC UA 11-25(A) 0 - 2 /hpf 06/21/2021 11:06 AM T [facility] RBC UA 6-10(A) 0 - 2 /hpf 06/21/2021 11:06 AM CDT [facility] BACTERIA UA 2+(A) Negative /hpf 06/21/2021 11:06 AM T [facility] EPITHELIAL CELLS, URINE 6-10(A) 0 - 5 /hpf 06/21/2021 11:06 AM [facility] HYALINE CAST None Seen None Seen, 0-2 /lpf 06/21/2021 11:06 AM [facility] Urine URINE SPECIMEN OBTAINED BY CLEAN CATCH PROCEDURE / Unknown Collection / Unknown 06/20/2021 8:08 PM CDT 06/21/2021 10:49 AM [facility] - 06/21/2021 11:06 AM CDT Based on results, a urine culture has been reflexed. us Nargis Guy MD URINE ORDERABLES Final Result [facility] CLIA# [id number] [place] [address] documented in this encounter Visit Diagnoses Not on filedocumented in this encounter
--- OUTSIDE RECORDS SUMMARY | 2025-09-13 15:32 | XMS_ITS | Encounter Summary ---
Author Organization [facility] Address [address] [address] Care Team Providers Care Matchbook Maker Name Role Phone Murali Silva MD Primary Care Provider [phone] Karime Aguilera RN [facility] Gurvinder Stephens MD Primary Care Provider [phone] Reason for Visit * Reason Onset Date Comments Patient Requested Call 11/05/2021 Encounter Details Date Type Department Care Team (Late st Contact Info) Description 11/05/2021 Telephone [facility] [address] [place] [address] Christy Khan MD [address] [address] Patient Requested Call Social History [...] Pari Denton RN - 11/05/2021 12:15 PM NET SOFTWARE ENGINEER RN called patient. Pt stating she does not want to stand as her knees buckle. Pt made aware that office does have lower exam tables. Pt stating she is coming to the office visit in electric wheelchair and will also be accompanied by home health. Will also pass along to and medical legal investigator IMANI Tesfaye SOFTWARE ENGINEER * Telephone Encounter - Holly Yates - 11/05/2021 12:08 PM CST Patient is requesting a call back to confirm accommodations for her appt. She recently had surgery and won't be able to get on a high table for her exam. Please advise: [phone] SOFTWARE ENGINEER documented in this encounter Plan of Treatment Not on file documented as of this encounter Visit Diagnoses Not on filedocumented in this encounter Care Teams Matchbook Maker Relationship Specialty Start Date End Date Murali Silva MD [address] [place] [address] PCP - General 03/03/18 12/31/21 Gurvinder Renteria MD [address] [place] [address] PCP - General 01/01/22 Karime Aguilera RN 05/07/18 documented as of this encounter
--- OUTSIDE RECORDS SUMMARY | 2025-09-13 15:32 | XMS_ITS | Encounter Summary ---
Author Organization [facility] Address [address] [place] [address] Care Team Providers Care Electronics Tech Name Role Phone Unavailable Primary Care Provider Unavailabl e Encounter Details Date Type Department Care Team (Late st Contact Info) Description 05/18/2021 Lab Requisition [facility] Services [address] [place] [address] [place] [address] [place] [address] Social History Tobacco Use Types [...] - 145 mmol/L 05/18/2021 8:44 AM CDT [facility] POTASSIUM 5.7(H) 3.4 - 5.1 mmol/L 05/18/2021 8:[address] [facility] CHLORIDE 101 98 - 107 mmol/L 05/18/2021 8:[address] [facility] CO2 24 22 - 29 mmol/L 05/18/2021 8:[address] [facility] CALCIUM 8.7 8.6 - 10.4 mg/dL 05/18/2021 8:[address] [facility] BUN 58(H) 6 - 20 mg/dL 05/18/2021 8:[address] [facility] CREATININE 3.20(H) 0.51 - 0.95 mg/dL 05/18/2021 8:[address] [facility] GLUCOSE 102(H) 74 - 99 mg/dL 05/18/2021 8:[address] [facility] GFR 15 mL/min/1.7 3 sq meter 05/18/2021 8:[address] [facility] Comment: eGFR has not been [...] 3 sq meter 05/18/2021 8:[address] [facility] ANION GAP 14 8 - 16 mmol/L 05/18/2021 8:[address] [facility] Blood Collection / Unknown 05/18/2021 4:57 AM CDT 05/18/2021 8:11 AM CDT us Nargis Guy MD CHEMISTRY ORDERABLES Final Resul t [facility] CLIA# [id number] [place] [address] documented in this encounter Visit Diagnoses Not on filedocumented in this encounter
--- OUTSIDE RECORDS SUMMARY | 2025-09-13 15:32 | XMS_ITS | Encounter Summary ---
Author Organization [facility] Address [address] [place] [address] Care Team Providers Care Traveling Electrician Name Role Phone Unavailable Primary Care Provider Unavailabl e Encounter Details Date Type Department Care Team (Late st Contact Info) Description 05/17/2021 Lab Requisition [facility] [address] [place] [address] [place] [address] [place] [address] Social History Tobacco Use Types [...] - 10.5 K/uL 05/17/2021 10:31 AM CDT [facility] RBC 2.72(L) 3.90 - 4.90 M/uL 05/17/2021 10:31 AM CDT [facility] HEMOGLOBIN 7.9(L) 11.8 - 14.8 g/dL 05/17/2021 10:31 AM CDT [facility] HEMATOCRIT 23.6(L) 35.5 - 44.0 % 05/17/2021 10:31 AM CDT [facility] MCV 86.6 82.0 - 99.0 fL 05/17/2021 10:31 AM CDT [facility] MCH 28.9 27.8 - 34.5 pg 05/17/2021 10:31 AM CDT [facility] MCHC 33.3 32.5 - 35.5 g/dL 05/17/2021 10:31 AM CDT [facility] RDW 14.7(H) 11.5 - 14.5 % 05/17/2021 10:31 AM CDT [facility] PLATELETS 188 160 - 420 K/uL 05/17/2021 10:31 AM CDT [facility] MPV 8.8 8.7 - 12.7 fL 05/17/2021 10:31 AM CDT [facility] NEUTROPHILS 59 % 05/17/2021 10:31 AM CDT [facility] LYMPHOCYTES 21 % 05/17/2021 10:31 AM CDT [facility] MONOCYTES 14 % 05/17/2021 10:31 AM CDT [facility] EOSINOPHILS 5 % 05/17/2021 10:31 AM CDT [facility] BASOPHILS 1 % 05/17/2021 10:31 AM CDT [facility] NEUTROPHIL ABSOLUTE 5.80 1.90 - 7.00 K/uL 05/17/2021 10:31 AM CDT [facility] LYMPHOCYTE ABSOLUTE 2.10 0.70 - 4.50 K/uL 05/17/2021 10:31 AM CDT [facility] MONOCYTE ABSOLUTE 1.30 0.10 - 1.30 K/uL 05/17/2021 10:31 AM CDT [facility] - [facility] EOSINOPHIL ABSOLUTE 0.50 0.00 - 0.70 K/uL 05/17/2021 10:31 AM CDT [facility] - [facility] BASOPHILS ABSOLUTE 0.10 0.00 - 0.20 K/uL 05/17/2021 10:31 AM CDT [facility] Blood Collection / Unknown 05/17/2021 5:20 AM CDT 05/17/2021 10:01 AM CDT us Nargis Guy MD HEMATOLOGY ORDERABLES Final Resu lt [facility] CLIA# [id number] [place] [address] documented in this encounter Visit Diagnoses Not on filedocumented in this encounter
--- OUTSIDE RECORDS SUMMARY | 2025-09-13 15:32 | XMS_ITS | Encounter Summary ---
Author Organization [facility] Address [address] [place] [address] Care Team Providers Care Travel Accommodations Rater Name Role Phone Unavailable Primary Care Provider Unavailabl e Encounter Details Date Type Department Care Team (Late st Contact Info) Description 07/13/2021 Lab Requisition [facility] Services [address] [place] [address] [place] [address] [place] [address] Social History Tobacco Use Types [...] 6.2(H) <=5.6 % 07/13/2021 10:36 AM CDT [facility] EST. AVG GLUCOSE, A1C 131 mg/dL 07/13/2021 10:36 AM CDT [facility] Blood Collection / Unknown 07/13/2021 6:30 AM CDT 07/13/2021 10:06 AM CDT Narrative [facility] - 07/13/2021 10:36 AM CDT HGB A1C INTERPRETATION NORMAL: <5.7% PRE-DIABETES: 5.7 - 6.4% DIABETES: 6.5% OR GREATER Nargis Guy MD CHEMISTRY ORDERABLES Final Resul t [facility] CLIA# [id number] [place] [address] documented in this encounter Visit Diagnoses Not on filedocumented in this encounter
--- OUTSIDE RECORDS SUMMARY | 2025-09-13 15:32 | XMS_ITS | Encounter Summary ---
Author Organization [facility] Address [address] [place] [address] Care Team Providers Care Slot Floorperson Name Role Phone Unavailable Primary Care Provider Unavailabl e Encounter Details Date Type Department Care Team (Late st Contact Info) Description 07/12/2021 Lab Requisition [facility] Services [address] [place] [address] [place] [address] [place] [address] Social History Tobacco Use Types [...] - 145 mmol/L 07/12/2021 11:37 AM CDT [facility] - [facility] POTASSIUM 4.2 3.4 - 5.1 mmol/L 07/12/2021 11:37 [facility] CHLOR[facility] 101 98 - 107 mmol/L 07/12/2021 11:37 AM [facility] CO2 22 22 - 29 mmol/L 07/12/2021 11:37 AM [facility] CALCIUM 9.3 8.6 - 10.4 mg/dL 07/12/2021 11:37 AM [facility] BUN 20 6 - 20 mg/dL 07/12/2021 11:37 AM [facility] CREATININE 1.26(H) 0.51 - 0.95 mg/dL 07/12/2021 11:37 AM [facility] GLUCOSE 121(H) 74 - 99 mg/dL 07/12/2021 11:37 AM [facility] TOTAL PROTEIN 6.9 6.3 - 8.7 g/dL 07/12/2021 11:37 AM [facility] ALBUMIN 3.3(L) 3.5 - 5.2 g/dL 07/12/2021 11:37 AM [facility] BILIRUBIN TOTAL 0.2 0.2 - 1.1 mg/dL 07/12/2021 11:37 AM [facility] ALKALINE PHOSPHATASE 101 40 - 150 U/L 07/12/2021 11:37 AM [facility] AST 17 0 - 33 U/L 07/12/2021 11:37 AM [facility] ALT 12 0 - 33 U/L 07/12/2021 11:37 AM [facility] GFR 43 mL/min/1.7 3 sq meter 07/12/2021 11:37 AM [facility] Comment: eGFR [...] 3 sq meter 07/12/2021 11:37 AM CDT [facility] ANION GAP 14 8 - 16 mmol/L 07/12/2021 11:37 AM CDT [facility] Blood Collection / Unknown 07/12/2021 5:00 AM CDT 07/12/2021 11:05 AM CDT us Nargis Guy MD CHEMISTRY ORDERABLES Final Resul t [facility] [employer] [facility] CLIA# [id number] [address] [place] [address] documented in this encounter Visit Diagnoses Not on filedocumented in this encounter
--- OUTSIDE RECORDS SUMMARY | 2025-09-13 15:32 | XMS_ITS | Encounter Summary ---
Author Organization [facility] Address [address] [place] [address] Care Team Providers Care Clinical Systems Educator Name Role Phone Karime Aguilera RN, Haresh K MD Primary Care Provider Reason for Visit * Reason Onset Date Comments Request Lab Order 09/10/2023 Imaging 09/10/2023 Encounter Details Date Type Department Care Team (Late st Contact Info) Description 09/10/2023 Telephone [facility] - SPRAY RIG OPERATOR [address] [place] [address] Christy Khan MD [address] [facility] [place] [address] Request Lab Order; Imaging Social [...] needs screening mammogram ordered and sent to [facility]. RN ordered and faxed to [phone] RN scheduled pt for WWE 10/14/2023 9:15 AM Christy Khan MD Pt accepts appt * Telephone Encounter - Nataliia Bangura - 09/10/2023 10:05 AM CDT Pt wants Mammogram order sent to [facility] in [place], [place]. documented in this encounter Plan of Treatment Not on file documented as of this encounter Visit Diagnoses Diagnosis Encounter for screening mammogram for malignant neoplasm of breast- Primary Other screening mammogram documented in this encounter Care Teams Clinical Systems Educator Relationship Specialty Start Date End Date Gurvinder Renteria MD [address] [place] [address] PCP - General 01/01/22 Karime Aguilera RN 05/07/18 documented as of this encounter
--- OUTSIDE RECORDS SUMMARY | 2025-09-13 15:32 | XMS_ITS | Encounter Summary ---
Author Organization [facility] Address [address] [place] [address] Care Team Providers Care Paint Brush Maker Name Role Phone Unavailable Primary Care Provider Unavailabl e Encounter Details Date Type Department Care Team (Late st Contact Info) Description 07/11/2021 Lab Requisition [facility] Laboratory Services [address] [place] [address] [place] [address] [place] [address] Social History Tobacco Use Types [...] - 10.5 K/uL 07/11/2021 9:11 AM CDT [facility] RBC 3.85(L) 3.90 - 4.90 M/uL 07/11/2021 9:11 AM CDT [facility] HEMOGLOBIN 10.5(L) 11.8 - 14.8 g/dL 07/11/2021 9:11 AM CDT [facility] HEMATOCRIT 32.4(L) 35.5 - 44.0 % 07/11/2021 9:11 [facility] MCV 84.0 82.0 - 99.0 fL 07/11/2021 9:11 AM CDT [facility] MCH 27.1(L) 27.8 - 34.5 pg 07/11/2021 9:11 AM CDT [facility] MCHC 32.3(L) 32.5 - 35.5 g/dL 07/11/2021 9:11 AM CDT [facility] SERVICES [facility] RDW 15.2(H) 11.5 - 14.5 % 07/11/2021 9:11 AM CDT [facility] PLATELETS 404 160 - 420 K/uL 07/11/2021 9:11 AM CDT [facility] MPV 8.0(L) 8.7 - 12.7 fL 07/11/2021 9:11 AM CDT [facility] SERVICES [facility] NEUTROPHILS 49 % 07/11/2021 9:11 AM CDT [facility] SERVICES [facility] LYMPHOCYTES 37 % 07/11/2021 9:11 AM CDT [facility] MONOCYTES 8 % 07/11/2021 9:11 AM CDT [facility] EOSINOPHILS 5 % 07/11/2021 9:11 AM CDT [facility] BASOPHILS 1 % 07/11/2021 9:11 AM CDT [facility] NEUTROPHIL ABSOLUTE 3.90 1.90 - 7.00 K/uL 07/11/2021 9:11 AM CDT [facility] LYMPHOCYTE ABSOLUTE 3.00 0.70 - 4.50 K/uL 07/11/2021 9:11 AM CDT [facility] SERVICES [facility] MONOCYTE ABSOLUTE 0.60 0.10 - 1.30 K/uL 07/11/2021 9:11 AM CDT [facility] EOSINOPHIL ABSOLUTE 0.40 0.00 - 0.70 K/uL 07/11/2021 9:11 AM CDT [facility] SERVICES - [facility] BASOPHILS ABSOLUTE 0.10 0.00 - 0.20 K/uL 07/11/2021 9:11 AM CDT [facility] Blood Collection / Unknown 07/11/2021 5:00 AM CDT 07/11/2021 8:43 AM CDT us Nargis Guy MD HEMATOLOGY ORDERABLES Final Resu lt [facility] CLIA# [id number] [place] [address] documented in this encounter Visit Diagnoses Not on filedocumented in this encounter
--- OUTSIDE RECORDS SUMMARY | 2025-09-13 15:32 | XMS_ITS | Encounter Summary ---
Author Organization [facility] Address [address] [place] [address] Care Team Providers Care Photoengraving Proofer Apprentice Name Role Phone Unavailable Primary Care Provider Unavailabl e Encounter Details Date Type Department Care Team (Late st Contact Info) Description 07/02/2021 Lab Requisition [facility] Laboratory Services [address] [place] [address] [place] [address] [place] [address] Social History Tobacco Use Types [...] SEDIMENTATION RATE (07/02/2021 4:10 AM CDT) Pathologist [facility] ESR (SEDIMENTATION RATE) 59(H) 0 - 30 mm/Hr 07/02/2021 9:26 AM CDT [facility] Blood Collection / Unknown 07/02/2021 4:10 AM CDT 07/02/2021 5:57 AM CDT Nargis Guy MD HEMATOLOGY ORDERABLES Final Resu lt Performing Organization Address City/[facility]/ZIP Co de Phone Number [facility] CLIA# [id number] [place] [address] * RETICULOCYTES (07/02/2021 4:10 AM CDT) Pathologist [facility] RETICULOCYTES 2.0 0.4 - 2.0 % 07/02/2021 6:49 AM CDT [facility] IMMATURE RETIC FRACTION 0.5 % 07/02/2021 6:49 AM CDT [facility] RETICULOCYTE, ABSOLUTE 0.0681 0.0250 - 0.1480 10e6/uL 07/02/2021 6:49 AM CDT [facility] Blood Collection / Unknown 07/02/2021 4:10 AM CDT 07/02/2021 5:57 AM CDT Nargis Guy MD HEMATOLOGY ORDERABLES Final Resu lt Performing Organization Address City/[facility]/ZIP Co de Phone Number [facility] CLIA# [id number] [place] [address] * (ABNORMAL) PREALBUMIN (07/02/2021 4:10 AM CDT) PREALBUMIN 17(L) 20 - 40 mg/dL 07/02/2021 2:25 PM CDT [facility] Blood Collection / Unknown 07/02/2021 4:10 AM CDT 07/02/2021 5:57 AM CDT Nargis Guy MD CHEMISTRY ORDERABLES Final Resul t [facility] CLIA# [id number] [address] [place] [address] * (ABNORMAL) IRON, TIBC, AND PERCENT SATURATION (07/02/2021 4:10 AM CDT) IRON 36(L) 37 - 145 ug/dL 07/02/2021 7:20 AM CDT [facility] TIBC 161(L) 265 - 497 ug/dL 07/02/2021 7:20 AM CDT [facility] IRON % SATURATION 22 20 - 55 % 07/02/2021 7:20 AM CDT [facility] Blood Collection / Unknown 07/02/2021 4:10 AM CDT 07/02/2021 5:57 AM CDT Nargis Guy MD CHEMISTRY ORDERABLES Final Resul t [facility] CLIA# [id number] [place] [address] * (ABNORMAL) C-REACTIVE PROTEIN (07/02/2021 4:10 AM CDT) CRP 27.4(H) <5.0 mg/L 07/02/2021 7:20 AM CDT [facility] Blood Collection / Unknown 07/02/2021 4:10 AM CDT 07/02/2021 5:57 AM CDT Nargis Guy MD CHEMISTRY ORDERABLES Final Resul t [facility] CLIA# [id number] [place] [address] * (ABNORMAL) CBC WITH DIFFERENTIAL (07/02/2021 4:10 AM CDT) [facility] WBC 6.5 4.5 - 10.5 K/uL 07/02/2021 6:49 AM CDT [facility] RBC 3.48(L) 3.90 - 4.90 M/uL 07/02/2021 6:49 AM CDT [facility] HEMOGLOBIN 9.5(L) 11.8 - 14.8 g/dL 07/02/2021 6:49 AM CDT [facility] HEMATOCRIT 29.3(L) 35.5 - 44.0 % 07/02/2021 6:49 AM CDT [facility] MCV 84.1 82.0 - 99.0 fL 07/02/2021 6:49 AM CDT [facility] MCH 27.2(L) 27.8 - 34.5 pg 07/02/2021 6:49 AM CDT [facility] MCHC 32.3(L) 32.5 - 35.5 g/dL 07/02/2021 6:49 AM CDT [facility] RDW 15.8(H) 11.5 - 14.5 % 07/02/2021 6:49 AM CDT [facility] PLATELETS 386 160 - 420 K/uL 07/02/2021 6:49 AM CDT [facility] MPV 7.3(L) 8.7 - 12.7 fL 07/02/2021 6:49 AM CDT [facility] NEUTROPHILS 51 % 07/02/2021 6:49 AM CDT [facility] LYMPHOCYTES 36 % 07/02/2021 6:49 AM CDT [facility] MONOCYTES 7 % 07/02/2021 6:49 AM CDT [facility] EOSINOPHILS 5 % 07/02/2021 6:49 AM CDT [facility] BASOPHILS 1 % 07/02/2021 6:49 AM CDT [facility] NEUTROPHIL ABSOLUTE 3.30 1.90 - 7.00 K/uL 07/02/2021 6:49 AM CDT [facility] LYMPHOCYTE ABSOLUTE 2.30 0.70 - 4.50 K/uL 07/02/2021 6:49 AM CDT [facility] MONOCYTE ABSOLUTE 0.50 0.10 - 1.30 K/uL 07/02/2021 6:49 AM CDT [facility] EOSINOPHIL ABSOLUTE 0.30 0.00 - 0.70 K/uL 07/02/2021 6:49 AM CDT [facility] BASOPHILS ABSOLUTE 0.10 0.00 - 0.20 K/uL 07/02/2021 6:49 AM CDT [facility] Blood Collection / Unknown 07/02/2021 4:10 AM CDT 07/02/2021 5:57 AM CDT us Nargis Guy MD HEMATOLOGY ORDERABLES Final Resu lt [facility] CLIA# [id number] [place] [address] * (ABNORMAL) COMPREHENSIVE METABOLIC PANEL (07/02/2021 4:10 AM CDT) SODIUM 139 136 - 145 mmol/L 07/02/2021 7:20 AM CDT [facility] POTASSIUM 4.5 3.4 - 5.1 mmol/L 07/02/2021 7:20 AM CDT [facility] CHLORIDE 104 98 - 107 mmol/L 07/02/2021 7:20 AM [facility] CO2 24 22 - 29 mmol/L 07/02/2021 7:20 AM [facility] CALCIUM 8.9 8.6 - 10.4 mg/dL 07/02/2021 7:20 AM [facility] BUN 12 6 - 20 mg/dL 07/02/2021 7:20 AM [facility] CREATININE 0.94 0.51 - 0.95 mg/dL 07/02/2021 7:20 AM [facility] GLUCOSE 111(H) 74 - 99 mg/dL 07/02/2021 7:20 AM [facility] TOTAL PROTEIN 6.0(L) 6.3 - 8.7 g/dL 07/02/2021 7:20 AM [facility] ALBUMIN 2.8(L) 3.5 - 5.2 g/dL 07/02/2021 7:20 AM [facility] BILIRUBIN TOTAL <0.2(L) 0.2 - 1.1 mg/dL 07/02/2021 7:20 AM [facility] ALKALINE PHOSPHATASE 102 40 - 150 U/L 07/02/2021 7:20 AM [facility] AST 21 0 - 33 U/L 07/02/2021 7:20 AM [facility] ALT 15 0 - 33 U/L 07/02/2021 7:20 AM [facility] GFR >60 mL/min/1.7 3 sq meter 07/02/2021 7:20 AM [facility] Comment: eGFR has not been [...] 3 sq meter 07/02/2021 7:20 AM CDT [facility] ANION GAP 11 8 - 16 mmol/L 07/02/2021 7:20 AM CDT [facility] Blood Collection / Unknown 07/02/2021 4:10 AM CDT 07/02/2021 5:57 AM CDT us Nargis Guy MD CHEMISTRY ORDERABLES Final Resul t [facility] CLIA# [id number] [place] [address] documented in this encounter Visit Diagnoses Not on filedocumented in this encounter
--- OUTSIDE RECORDS SUMMARY | 2025-09-13 15:35 | XMS_ITS | Encounter Summary ---
Author Organization [facility] Address [address] [place] [address] Care Team Providers Care Weigher And Mixer Name Role Phone Unavailable Primary Care Provider Unavailabl e Encounter Details Date Type Department Care Team (Late st Contact Info) Description 05/12/2021 Lab Requisition [facility] Laboratory Services [address] [place] [address] [place] [address] [place] [address] Social History Tobacco Use Types [...] HAKEEM MCG/ML 05/13/2021 2:10 PM CDT [facility] Urine URINE SPECIMEN OBTAINED BY CLEAN CATCH PROCEDURE / Unknown Collection / Unknown 05/11/2021 7:53 PM CDT 05/12/2021 10:42 AM CDT Nargis Guy MD MICROBIOLOGY - GENERAL ORDERABLE S Final Result [facility] CLIA# [id number] [address] [place], [place] [address] * (ABNORMAL) URINALYSIS WITH REFLEX CULTURE (05/11/2021 7:53 PM CDT) COLOR UA Pale Yellow Pale to Dark Yellow 05/12/2021 10:42 AM CDT [facility] [employer] [facility] CLARITY UA Slightly Cloudy(A) Clear 05/12/2021 10:42 AM CDT [facility] [employer] [facility] SPECIFIC GRAVITY UA 1.015 1.003 - 1.035 05/12/2021 10:42 AM CDT [facility] [employer] [facility] PH UA 6.0 5.0 - 8.0 05/12/2021 10:42 AM CDT [facility] [employer] [facility] LEUKOCYTE ESTERASE UA 3+(A) Negative 05/12/2021 10:42 AM CDT [facility] [employer] [facility] NITRITE UA Negative Negative 05/12/2021 10:42 AM CDT [facility] [employer] [facility] PROTEIN UA Negative Negative 05/12/2021 10:42 AM CDT [facility] [employer] [facility] GLUCOSE UA Negative Negative 05/12/2021 10:42 AM CDT [facility] [employer] [facility] KETONES UA Negative Negative 05/12/2021 10:42 AM CDT [facility] [employer] [facility] UROBILINOGEN UA Normal <2.0 mg/dL 10:42 AM CDT [facility] [employer] [facility] BILIRUBIN UA Negative Negative 05/12/2021 10:42 AM CDT [facility] [employer] [facility] BLOOD UA Negative Negative 05/12/2021 10:42 AM CDT [facility] WBC UA 11-25(A) 0 - 2 /hpf 05/12/2021 10:42 AM CDT [facility] RBC UA 6-10(A) 0 - 2 /hpf 05/12/2021 10:42 AM CDT [facility] BACTERIA UA 1+(A) Negative /hpf 05/12/2021 10:42 AM CDT [facility] EPITHELIAL CELLS, URINE 0-5 0 - 5 /hpf 05/12/2021 10:42 AM CDT [facility] HYALINE CAST None Seen None Seen, 0-2 /lpf 05/12/2021 10:42 AM CDT [facility] YEAST, BUDDING Present(A) Absent 05/12/2021 10:42 AM CDT [facility] Urine URINE SPECIMEN OBTAINED BY CLEAN CATCH PROCEDURE / Unknown Collection / Unknown 05/11/2021 7:53 PM CDT 05/12/2021 10:22 AM CDT Narrative [facility] - 05/12/2021 10:42 AM CDT Based on results, a urine culture has been reflexed. us Nargis Guy MD URINE ORDERABLES Final Result [facility] CLIA# [id number] [place] [address] documented in this encounter Visit Diagnoses Not on filedocumented in this encounter
--- OUTSIDE RECORDS SUMMARY | 2025-09-13 15:35 | XMS_ITS | Encounter Summary ---
Author Organization [facility] Address [address] [place] [address] Care Team Providers Care Career Law Clerk Name Role Phone Unavailable Primary Care Provider Unavailabl e Encounter Details Date Type Department Care Team (Late st Contact Info) Description 06/11/2021 Lab Requisition [facility] [id number] [place] [address] [place] [address] [place] [address] Social History Tobacco Use Types [...]
--- OUTSIDE RECORDS SUMMARY | 2025-09-13 15:35 | XMS_ITS | Encounter Summary ---
Author Organization [facility] Address [address] [place] [address] Care Team Providers Care Marine Equipment Preservation Inspector Name Role Phone Unavailable Primary Care Provider Unavailabl e Encounter Details Date Type Department Care Team (Late st Contact Info) Description 05/10/2021 Lab Requisition [facility] Laboratory Services [address] [place] [address] [place] [address] [place] [address] Social History Tobacco Use Types [...] seconds 05/10/2021 9:45 AM CDT [facility] LABORATORY [facility] Blood Collection / Unknown 05/10/2021 6:11 AM CDT 05/10/2021 9:23 AM CDT Nargis Guy MD HEMATOLOGY ORDERABLES Final Resu lt [facility]# [id number] [place] [address] * PROTIME-INR (05/10/2021 6:11 AM CDT) Pathologist [facility] PROTIME 14.4 11.5 - 14.7 Seconds 05/10/2021 9:45 AM CDT [facility] [employer] [facility] INR 1.1 0.9 - 1.1 05/10/2021 9:45 AM CDT [facility] Blood Collection / Unknown 05/10/2021 6:11 AM CDT 05/10/2021 9:23 AM CDT Nargis Guy MD HEMATOLOGY ORDERABLES Final Resu lt [facility] [id number] [place] [address] * (ABNORMAL) PREALBUMIN (05/10/2021 6:11 AM CDT) Pathologist [facility] Emergency Department PREALBUMIN 13(L) 20 - 40 mg/dL 05/10/2021 10:20 AM CDT [facility] LABORAT[facility] Blood Collection / Unknown 05/10/2021 6:11 AM CDT 05/10/2021 9:23 AM CDT Nargis Guy MD CHEMISTRY ORDERABLES Final Resul t [facility] CLIA# [id number] [place] [address] * (ABNORMAL) CBC WITH DIFFERENTIAL (05/10/2021 6:11 AM CDT) WBC 9.2 4.5 - 10.5 K/uL 05/10/2021 9:31 AM CDT [facility] RBC 2.81(L) 3.90 - 4.90 M/uL 05/10/2021 9:31 AM CDT [facility] HEMOGLOBIN 8.3(L) 11.8 - 14.8 g/dL 05/10/2021 9:31 AM CDT [facility] HEMATOCRIT 25.0(L) 35.5 - 44.0 % 05/10/2021 9:31 AM CDT [facility] [employer] [facility] MCV 88.9 82.0 - 99.0 fL 05/10/2021 9:31 AM CDT [facility] MCH 29.7 27.8 - 34.5 pg 05/10/2021 9:31 AM CDT [facility] MCHC 33.4 32.5 - 35.5 g/dL 05/10/2021 9:31 AM CDT [facility] RDW 14.7(H) 11.5 - 14.5 % 05/10/2021 9:31 AM CDT [facility] LAB[facility] PLATELETS 421(H) 160 - 420 K/uL 05/10/2021 9:31 AM CDT [facility] LAB[facility]ORY [facility] MPV 7.9(L) 8.7 - 12.7 fL 05/10/2021 9:31 AM CDT [facility] NEUTROPHILS 68 45 - 70 % 05/10/2021 9:31 AM CDT [facility] LAB[facility] LYMPHOCYTES 19 16 - 45 % 05/10/2021 9:31 AM CDT [facility] LABORATORY SERVICES - [facility] MONOCYTES 10 3 - 13 % 05/10/2021 9:31 AM CDT [facility] LABORATORY SERVICES - [facility] EOSINOPHILS 3 0 - 7 % 05/10/2021 9:31 AM CDT [facility] LABORATORY SERVICES - [facility] BASOPHILS 1 0 - 2 % 05/10/2021 9:31 AM CDT [facility] LABORATORY SERVICES [facility] NEUTROPHIL ABSOLUTE 6.20 1.90 - 7.00 K/uL 05/10/2021 9:31 AM CDT [facility] LABORATORY SERVICES - [facility] LYMPHOCYTE ABSOLUTE 1.70 0.70 - 4.50 K/uL 05/10/2021 9:31 AM CDT [facility] LABORATORY SERVICES - [facility] MONOCYTE ABSOLUTE 0.90 0.10 - 1.30 K/uL 05/10/2021 9:31 AM CDT [facility] LABORATORY SERVICES - [facility] EOSINOPHIL ABSOLUTE 0.20 0.00 - 0.70 K/uL 05/10/2021 9:31 AM CDT [facility] LABORATORY SERVICES [facility] BASOPHILS ABSOLUTE 0.10 0.00 - 0.20 K/uL 05/10/2021 9:31 AM CDT [facility] LABORATORY SERVICES [facility] Blood Collection / Unknown 05/10/2021 6:11 AM CDT 05/10/2021 9:23 AM CDT us Nargis Guy MD HEMATOLOGY ORDERABLES Final Resu lt [facility] CLIA# [id number] [place] [address] * (ABNORMAL) COMPREHENSIVE METABOLIC PANEL (05/10/2021 6:11 AM CDT) SODIUM 143 136 - 145 mmol/L 05/10/2021 10:18 AM CDT [facility] LABOR[facility] POTASSIUM 4.2 3.4 - 5.1 mmol/L 05/10/2021 10:18 AM CDT [facility] LABORATORY [facility] CHLORIDE 109(H) 98 - 107 mmol/L 05/10/2021 10:18 AM CDT [facility] CO2 20(L) 22 - 29 mmol/L 05/10/2021 10:18 AM [facility] CALCIUM 8.5(L) 8.6 - 10.4 mg/dL 05/10/2021 10:18 AM [facility] BUN 20 6 - 20 mg/dL 05/10/2021 10:18 AM [facility] CREATININE 2.50(H) 0.51 - 0.95 mg/dL 05/10/2021 10:18 AM [facility] GLUCOSE 96 74 - 99 mg/dL 05/10/2021 10:18 AM [facility] TOTAL PROTEIN 6.6 6.3 - 8.7 g/dL 05/10/2021 10:18 AM [facility] ALBUMIN 2.6(L) 3.5 - 5.2 g/dL 05/10/2021 10:18 AM [facility] BILIRUBIN TOTAL 0.2(L) 0.3 - 1.2 mg/dL 05/10/2021 10:18 AM [facility] ALKALINE PHOSPHATASE 94 40 - 150 U/L 05/10/2021 10:18 AM [facility] AST 24 0 - 33 U/L 05/10/2021 10:18 AM [facility] ALT 17 0 - 33 U/L 05/10/2021 10:18 AM [facility] GFR 20 mL/min/1.7 3 sq meter 05/10/2021 10:18 AM [facility] Comment: eGFR has not been validated [...] meter 05/10/2021 10:18 AM CDT [facility] LABORATORY [facility] ANION GAP 14 8 - 16 mmol/L 05/10/2021 10:18 AM CDT [facility] LAB[facility] Blood Collection / Unknown 05/10/2021 6:11 AM CDT 05/10/2021 9:23 AM CDT us Nargis Guy MD CHEMISTRY ORDERABLES Final Resul t [facility] LABORATORY [facility] CLIA# [id number] [place] [address] documented in this encounter Visit Diagnoses Not on filedocumented in this encounter
--- OUTSIDE RECORDS SUMMARY | 2025-09-13 15:35 | XMS_ITS | Encounter Summary ---
Author Organization [facility] Address [address] [place] [address] Care Team Providers Care Oak Tanner Name Role Phone Unavailable Primary Care Provider Unavailabl e Encounter Details Date Type Department Care Team (Late st Contact Info) Description 05/28/2021 Lab Requisition [facility] Laboratory Services [address] [place] [address] [place] [address] [place] [address] Social History Tobacco Use Types [...] ORDERABLES Final Resul t Performing Organization Address [facility] de Phone Number [facility] CLIA# [id number] [place] [address] * (ABNORMAL) VITAMIN D 25 HYDROXY (05/28/2021 5:00 AM CDT) VITAMIN D TOTAL (25OH) 14(L) 30 - 100 ng/mL 05/28/2021 12:03 PM CDT [facility] Blood Collection / Unknown 05/28/2021 5:00 AM CDT 05/28/2021 11:07 AM CDT Narrative [facility] - 05/28/2021 12:03 PM CDT Interpretive Data Chart: Deficient: 0 - 20 ng/mL Insufficient: 21 - 29 ng/mL Sufficient: 30 - 100 ng/mL Increased Risk of Hypercalciuria: >100 ng/ml Toxic: >150 ng/ml Nargis Guy MD CHEMISTRY ORDERABLES Final Resul t Performing Organization Address [facility] Co de Phone Number [facility] CLIA# [id number] [place] [address] * (ABNORMAL) CBC WITH DIFFERENTIAL (05/28/2021 5:00 AM CDT) Pathologist [facility] WBC 8.2 4.5 - 10.5 K/uL 05/28/2021 11:15 AM CDT [facility] RBC 3.22(L) 3.90 - 4.90 M/uL 05/28/2021 11:15 AM CDT [facility] HEMOGLOBIN 9.2(L) 11.8 - 14.8 g/dL 05/28/2021 11:15 AM CDT [facility] LABORATORY SERVICES - [facility] HEMATOCRIT 28.5(L) 35.5 - 44.0 % 05/28/2021 11:15 AM CDT [facility] LABORATORY SERVICES - [facility] MCV 88.3 82.0 - 99.0 fL 05/28/2021 11:15 AM CDT [facility]ORATORY SERVICES - [facility] MCH 28.7 27.8 - 34.5 pg 05/28/2021 11:15 AM CDT [facility] LABORATORY SERVICES [facility] MCHC 32.5 32.5 - 35.5 g/dL 05/28/2021 11:15 AM CDT [facility] LABORATORY SERVICES [facility] RDW 16.6(H) 11.5 - 14.5 % 05/28/2021 11:15 AM CDT [facility] LABORATORY SERVICES [facility] PLATELETS 363 160 - 420 K/uL 05/28/2021 11:15 AM CDT [facility]ORATORY SERVICES [facility] MPV 7.5(L) 8.7 - 12.7 fL 05/28/2021 11:15 AM CDT [facility] LABORATORY SERVICES [facility] NEUTROPHILS 68 % 05/28/2021 11:15 AM CDT [facility]ORATORY SERVICES [facility] LYMPHOCYTES 21 % 05/28/2021 11:15 AM CDT [facility]ATORY SERVICES [facility] MONOCYTES 7 % 05/28/2021 11:15 AM CDT [facility]ORATORY SERVICES [facility] EOSINOPHILS 4 % 05/28/2021 11:15 AM CDT [facility]ORATORY SERVICES [facility] BASOPHILS 1 % 05/28/2021 11:15 AM CDT [facility]ORATORY SERVICES [facility] NEUTROPHIL ABSOLUTE 5.50 1.90 - 7.00 K/uL 05/28/2021 11:15 AM CDT [facility] LABORATORY SERVICES [facility] LYMPHOCYTE ABSOLUTE 1.70 0.70 - 4.50 K/uL 05/28/2021 11:15 AM CDT [facility] LABORATORY SERVICES [facility] MONOCYTE ABSOLUTE 0.60 0.10 - 1.30 K/uL 05/28/2021 11:15 AM CDT [facility] LABORATORY SERVICES [facility] EOSINOPHIL ABSOLUTE 0.30 0.00 - 0.70 K/uL 05/28/2021 11:15 AM CDT [facility] BASOPHILS ABSOLUTE 0.10 0.00 - 0.20 K/uL 05/28/2021 11:15 AM CDT [facility] Blood Collection / Unknown 05/28/2021 5:00 AM CDT 05/28/2021 11:07 AM CDT us Nargis Guy MD HEMATOLOGY ORDERABLES Final Resu lt [facility] CLIA# [id number] [place] [address] * (ABNORMAL) BASIC METABOLIC PANEL (05/28/2021 5:00 AM CDT) SODIUM 145 136 - 145 mmol/L 05/28/2021 11:44 AM T [facility] POTASSIUM 3.7 3.4 - 5.1 mmol/L 05/28/2021 11:44 AM [facility] CHLORIDE 108(H) 98 - 107 mmol/L 05/28/2021 11:44 AM T [facility] CO2 24 22 - 29 mmol/L 05/28/2021 11:44 AM [facility] CALCIUM 8.4(L) 8.6 - 10.4 mg/dL 05/28/2021 11:44 AM [facility] BUN 14 6 - 20 mg/dL 05/28/2021 11:44 AM [facility] CREATININE 1.17(H) 0.51 - 0.95 mg/dL 05/28/2021 11:44 AM T [facility] GLUCOSE 105(H) 74 - 99 mg/dL 05/28/2021 11:44 AM T [facility] GFR 47 mL/min/1.7 3 sq meter 05/28/2021 11:44 AM T [facility] Comment: eGFR has not been validated for [...] 3 sq meter 05/28/2021 11:44 AM CDT [facility] ANION GAP 13 8 - 16 mmol/L 05/28/2021 11:44 AM CDT [facility] Blood Collection / Unknown 05/28/2021 5:00 AM CDT 05/28/2021 11:07 AM CDT us Nargis Guy MD CHEMISTRY ORDERABLES Final Resul t [facility] CLIA# [id number] [place] [address] documented in this encounter Visit Diagnoses Not on filedocumented in this encounter
--- OUTSIDE RECORDS SUMMARY | 2025-09-13 15:35 | XMS_ITS | Encounter Summary ---
Author Organization [facility] Address [address] [place] [address] Care Team Providers Care Single Pointed Operator Name Role Phone Unavailable Primary Care Provider Unavailabl e Encounter Details Date Type Department Care Team (Late st Contact Info) Description 05/26/2021 Lab Requisition [facility] Laboratory Services [address] [place] [address] [facility], External Provider [address] [place] [address] Social History Tobacco Use Types Packs/Day Years [...] - 37.1 seconds 05/26/2021 7:19 AM CDT [facility] LABORATORY [facility] Blood Collection / Unknown 05/26/2021 4:30 AM CDT 05/26/2021 6:22 AM CDT External Provider [facility] HEMATOLOGY ORDERABLES Fin al Result [facility] [id number] [place] [address] * PROTIME-INR (05/26/2021 4:30 AM CDT) PROTIME 13.4 11.5 - 14.7 Seconds 05/26/2021 7:19 AM CDT [facility] INR 1.0 0.9 - 1.1 05/26/2021 7:19 AM CDT [facility] [employer] [facility] Blood Collection / Unknown 05/26/2021 4:30 AM CDT 05/26/2021 6:22 AM CDT Result [facility] External Provider [facility] HEMATOLOGY ORDERABLES Fin al Result Performing Organization Address City/[facility]/ZIP Co de Phone Number [facility] [id number] [place] [address] * (ABNORMAL) PREALBUMIN (05/26/2021 4:30 AM CDT) PREALBUMIN 17(L) 20 - 40 mg/dL 05/26/2021 12:53 PM CDT [facility] LAB[facility]AT[facility] Blood Collection / Unknown 05/26/2021 4:30 AM CDT 05/26/2021 6:22 AM CDT External Provider [facility] CHEMISTRY ORDERABLES Jennie l Result [facility] CLIA# [id number] [address] [facility] [place] [address] * (ABNORMAL) CBC WITH DIFFERENTIAL (05/26/2021 4:30 AM CDT) WBC 10.1 4.5 - 10.5 K/uL 05/26/2021 7:23 AM CDT [facility] LABORATORY [facility] RBC 3.06(L) 3.90 - 4.90 M/uL 05/26/2021 7:23 AM CDT [facility] LABORATORY [facility] HEMOGLOBIN 8.8(L) 11.8 - 14.8 g/dL 05/26/2021 7:23 AM CDT [facility] LABORATORY [facility] HEMATOCRIT 27.2(L) 35.5 - 44.0 % 05/26/2021 7:23 AM CDT [facility] LABORATORY [facility] MCV 89.0 82.0 - 99.0 fL 05/26/2021 7:23 AM CDT [facility] LABOR[facility]ORY [facility] MCH 28.8 27.8 - 34.5 pg 05/26/2021 7:23 AM CDT [facility] LABOR[facility]ORY [facility] MCHC 32.3(L) 32.5 - 35.5 g/dL 05/26/2021 7:23 AM CDT [facility] LABOR[facility] RDW 16.0(H) 11.5 - 14.5 % 05/26/2021 7:23 AM CDT [facility] LABOR[facility] PLATELETS 399 160 - 420 K/uL 05/26/2021 7:23 AM CDT [facility] LABORATORY [facility] MPV 7.8(L) 8.7 - 12.7 fL 05/26/2021 7:23 AM CDT [facility] LABORATORY [facility] NEUTROPHILS 71 % 05/26/2021 7:23 AM CDT [facility] LABORATORY [facility] LYMPHOCYTES 18 % 05/26/2021 7:23 AM CDT [facility] LABOR[facility]ORY [facility] MONOCYTES 8 % 05/26/2021 7:23 AM CDT [facility] LABOR[facility]ORY [facility] EOSINOPHILS 3 % 05/26/2021 7:23 AM CDT [facility] LABORATORY [facility] BASOPHILS 1 % 05/26/2021 7:23 AM CDT [facility] LAB[facility]ORY [facility] NEUTROPHIL ABSOLUTE 7.20(H) 1.90 - 7.00 K/uL 05/26/2021 7:23 AM CDT [facility] LABORATORY [facility] LYMPHOCYTE ABSOLUTE 1.90 0.70 - 4.50 K/uL 05/26/2021 7:23 AM CDT [facility] LABORATORY [facility] MONOCYTE ABSOLUTE 0.80 0.10 - 1.30 K/uL 05/26/2021 7:23 AM CDT [facility] LABORATORY SERVICES [facility] EOSINOPHIL ABSOLUTE 0.30 0.00 - 0.70 K/uL 05/26/2021 7:23 AM CDT [facility] LABORATORY SERVICES [facility] BASOPHILS ABSOLUTE 0.00 0.00 - 0.20 K/uL 05/26/2021 7:23 AM CDT [facility] LAB[facility] Blood Collection / Unknown 05/26/2021 4:30 AM CDT 05/26/2021 6:22 AM CDT us External Provider [facility] HEMATOLOGY ORDERABLES Fin al Result [facility] CLIA# [id number] [place] [address] * (ABNORMAL) COMPREHENSIVE METABOLIC PANEL (05/26/2021 4:30 AM CDT) SODIUM 144 136 - 145 mmol/L 05/26/2021 7:23 AM CDT [facility] LABOR[facility] POTASSIUM 3.7 3.4 - 5.1 mmol/L 05/26/2021 7:23 AM CDT [facility] LABOR[facility]ORY [facility] CHLORIDE 109(H) 98 - 107 mmol/L 05/26/2021 7:23 AM CDT [facility] LAB[facility] CO2 24 22 - 29 mmol/L 05/26/2021 7:23 AM CDT [facility] CALCIUM 8.3(L) 8.6 - 10.4 mg/dL 05/26/2021 7:23 AM [facility] BUN 19 6 - 20 mg/dL 05/26/2021 7:23 AM [facility] CREATININE 1.18(H) 0.51 - 0.95 mg/dL 05/26/2021 7:23 AM [facility] GLUCOSE 171(H) 74 - 99 mg/dL 05/26/2021 7:23 AM [facility] TOTAL PROTEIN 5.9(L) 6.3 - 8.7 g/dL 05/26/2021 7:23 AM [facility] ALBUMIN 2.6(L) 3.5 - 5.2 g/dL 05/26/2021 7:23 AM [facility] BILIRUBIN TOTAL 0.2(L) 0.3 - 1.2 mg/dL 05/26/2021 7:23 AM [facility] ALKALINE PHOSPHATASE 112 40 - 150 U/L 05/26/2021 7:23 AM [facility] AST 35(H) 0 - 33 U/L 05/26/2021 7:23 AM [facility] ALT 34(H) 0 - 33 U/L 05/26/2021 7:23 AM [facility] GFR 47 mL/min/1.7 3 sq meter 05/26/2021 7:23 AM [facility] [...] 7:23 AM [facility] ANION GAP 11 8 - 16 mmol/L 05/26/2021 7:23 AM CDT [facility] LABORATORY SERVICES - [facility] Blood Collection / Unknown 05/26/2021 4:30 AM CDT 05/26/2021 6:22 AM CDT us External Provider [facility] CHEMISTRY ORDERABLES Jennie l Result [facility] LABORATORY SERVICES - [facility] CLIA# [id number] [place] [address] documented in this encounter Visit Diagnoses Not on filedocumented in this encounter
--- OUTSIDE RECORDS SUMMARY | 2025-09-13 15:35 | XMS_ITS | Encounter Summary ---
Author Organization [facility] Address [address] [place] [address] Care Team Providers Care Mechanical Process Engineer Name Role Phone Unavailable Primary Care Provider Unavailabl e Encounter Details Date Type Department Care Team (Late st Contact Info) Description 06/04/2021 Lab Requisition [facility] Laboratory Services [address] [place] [address] [place] [address] [place] [address] Social History Tobacco Use Types [...] - 30 mm/Hr 06/04/2021 9:54 AM CDT [facility] Blood Collection / Unknown 06/04/2021 4:55 AM CDT 06/04/2021 9:41 AM CDT us Nargis Guy MD HEMATOLOGY ORDERABLES Final Resu lt [facility] CLIA# [id number] [address] [place] [address] * (ABNORMAL) RETICULOCYTES (06/04/2021 4:55 AM CDT) RETICULOCYTES 3.2(H) 0.4 - 2.0 % 06/04/2021 9:49 AM CDT [facility] IMMATURE RETIC FRACTION 0.5 % 06/04/2021 9:49 AM CDT [facility] RETICULOCYTE, ABSOLUTE 0.1121 0.0250 - 0.1480 10e6/uL 06/04/2021 9:49 AM CDT [facility] Blood Collection / Unknown 06/04/2021 4:55 AM CDT 06/04/2021 9:41 AM CDT us Nargis Guy MD HEMATOLOGY ORDERABLES Final Resu lt [facility]# [id number] [place] [address] * (ABNORMAL) PREALBUMIN (06/04/2021 4:55 AM CDT) Pathologist [facility] PREALBUMIN 13(L) 20 - 40 mg/dL 06/04/2021 2:28 PM CDT [facility] Blood Collection / Unknown 06/04/2021 4:55 AM CDT 06/04/2021 9:42 AM CDT Nargis Guy MD CHEMISTRY ORDERABLES Final Resul t Performing Organization Address City/[facility]/ZIP Co de Phone Number [facility]# [id number] [address] [place] [address] * (ABNORMAL) IRON, TIBC, AND PERCENT SATURATION (06/04/2021 4:55 AM CDT) [facility] IRON 27(L) 37 - 145 ug/dL 06/04/2021 10:17 AM CDT [facility] TIBC 144(L) 265 - 497 ug/dL 06/04/2021 10:17 AM CDT [facility]ORATORY [facility] IRON % SATURATION 19(L) 20 - 55 % 06/04/2021 10:17 AM CDT [facility] Blood Collection / Unknown 06/04/2021 4:55 AM CDT 06/04/2021 9:42 AM CDT Nargis Guy MD CHEMISTRY ORDERABLES Final Resul t [facility]# [id number] [place] [address] * HEMOGLOBIN A1C (06/04/2021 4:55 AM CDT) Pathologist [facility] HEMOGLOBIN A1C 5.5 <=5.6 % 06/04/2021 10:29 AM CDT [facility] EST. AVG GLUCOSE, A1C 111 mg/dL 06/04/2021 10:29 AM CDT [facility] Blood Collection / Unknown 06/04/2021 4:55 AM CDT 06/04/2021 10:10 AM CDT Narrative [facility] - 06/04/2021 10:29 AM CDT HGB A1C INTERPRETATION NORMAL: <5.7% PRE-DIABETES: 5.7 - 6.4% DIABETES: 6.5% OR GREATER Nargis Guy MD CHEMISTRY ORDERABLES Final Resul t [facility] CLIA# [id number] [address] [place] [address] * (ABNORMAL) C-REACTIVE PROTEIN (06/04/2021 4:55 AM CDT) Pathologist [facility] CRP 99.3(H) <5.0 mg/L 06/04/2021 10:17 AM CDT [facility] Blood Collection / Unknown 06/04/2021 4:55 AM CDT 06/04/2021 9:42 AM CDT Nargis Guy MD CHEMISTRY ORDERABLES Final Resul t [facility] CLIA# [id number] [place] [address] * (ABNORMAL) CBC WITH DIFFERENTIAL (06/04/2021 4:55 AM CDT) WBC 5.7 4.5 - 10.5 K/uL 06/04/2021 9:49 AM CDT [facility] RBC 3.55(L) 3.90 - 4.90 M/uL 06/04/2021 9:49 AM CDT [facility] [employer] [facility] HEMOGLOBIN 10.2(L) 11.8 - 14.8 g/dL 06/04/2021 9:49 AM CDT [facility] LABORATORY SERVICES [place] HEMATOCRIT 31.4(L) 35.5 - 44.0 % 06/04/2021 9:49 AM CDT [facility]ATORY [facility] [place] MCV 88.5 82.0 - 99.0 fL 06/04/2021 9:49 AM CDT [facility]ORY [facility] [place] MCH 28.8 27.8 - 34.5 pg 06/04/2021 9:49 AM CDT [facility] LAB[facility]ORY [facility] [place] MCHC 32.6 32.5 - 35.5 g/dL 06/04/2021 9:49 AM CDT [facility] [place] RDW 15.5(H) 11.5 - 14.5 % 06/04/2021 9:49 AM CDT [facility] [place] PLATELETS 288 160 - 420 K/uL 06/04/2021 9:49 AM CDT [facility]ORY [facility] [place] MPV 8.5(L) 8.7 - 12.7 fL 06/04/2021 9:49 AM CDT [facility] [place] NEUTROPHILS 53 % 06/04/2021 9:49 AM CDT [facility] [place] LYMPHOCYTES 33 % 06/04/2021 9:49 AM CDT [facility] [place] MONOCYTES 10 % 06/04/2021 9:49 AM CDT [facility] [place] EOSINOPHILS 4 % 06/04/2021 9:49 AM CDT [facility] [place] BASOPHILS 1 % 06/04/2021 9:49 AM CDT [facility]ORY [facility] [place] NEUTROPHIL ABSOLUTE 3.00 1.90 - 7.00 K/uL 06/04/2021 9:49 AM CDT [facility]ORY [facility] [place] LYMPHOCYTE ABSOLUTE 1.90 0.70 - 4.50 K/uL 06/04/2021 9:49 AM CDT [facility]ORY [facility] [place] MONOCYTE ABSOLUTE 0.50 0.10 - 1.30 K/uL 06/04/2021 9:49 AM CDT [facility]ORY [facility] [place] EOSINOPHIL ABSOLUTE 0.20 0.00 - 0.70 K/uL 06/04/2021 9:49 AM CDT [facility]ORY [facility] BASOPHILS ABSOLUTE 0.10 0.00 - 0.20 K/uL 06/04/2021 9:49 AM CDT [facility] Blood Collection / Unknown 06/04/2021 4:55 AM CDT 06/04/2021 9:41 AM CDT Nargis Guy MD HEMATOLOGY ORDERABLES Final Resu lt [facility] CLIA# [id number] [facility] [place] [address] * (ABNORMAL) COMPREHENSIVE METABOLIC PANEL (06/04/2021 4:55 AM CDT) SODIUM 143 136 - 145 mmol/L 06/04/2021 10:17 AM CDT [facility] POTASSIUM 4.0 3.4 - 5.1 mmol/L 06/04/2021 10:17 AM CDT [facility] [employer] [facility] CHLORIDE 107 98 - 107 mmol/L 06/04/2021 10:17 AM CDT [facility] CO2 24 22 - 29 mmol/L 06/04/2021 10:17 AM T [facility] CALCIUM 8.3(L) 8.6 - 10.4 mg/dL 06/04/2021 10:17 AM CDT [facility] BUN 8 6 - 20 mg/dL 06/04/2021 10:17 AM CDT [facility] CREATININE 1.01(H) 0.51 - 0.95 mg/dL 06/04/2021 10:17 AM CDT [facility]ORY [facility] GLUCOSE 105(H) 74 - 99 mg/dL 06/04/2021 10:17 AM T [facility]OR[facility]ORY [facility] TOTAL PROTEIN 5.7(L) 6.3 - 8.7 g/dL 06/04/2021 10:17 AM CDT [facility] ALBUMIN 2.5(L) 3.5 - 5.2 g/dL 06/04/2021 10:17 AM CDT [facility] BILIRUBIN TOTAL 0.2(L) 0.3 - 1.2 mg/dL 06/04/2021 10:17 AM T [facility] ALKALINE PHOSPHATASE 112 40 - 150 U/L 06/04/2021 10:17 AM T [facility] AST 38(H) 0 - 33 U/L 06/04/2021 10:17 AM CDT [facility] ALT 31 0 - 33 U/L 06/04/2021 10:17 AM T [facility] GFR 56 mL/min/1.7 3 sq meter 06/04/2021 10:17 AM T [facility] Comment: eGFR has not [...] 3 sq meter 06/04/2021 10:17 AM CDT [facility] ANION GAP 12 8 - 16 mmol/L 06/04/2021 10:17 AM T [facility] Blood Collection / Unknown 06/04/2021 4:55 AM CDT 06/04/2021 9:42 AM CDT us Nargis Guy MD CHEMISTRY ORDERABLES Final Resul t [facility] CLIA# [id number] [address] [address] documented in this encounter Visit Diagnoses Not on filedocumented in this encounter
--- OUTSIDE RECORDS SUMMARY | 2025-09-13 15:35 | XMS_ITS | Encounter Summary ---
Author Organization [facility] Address [address] [place] [address] Care Team Providers Care Cotton Stomper Name Role Phone Unavailable Primary Care Provider Unavailabl e Encounter Details Date Type Department Care Team (Late st Contact Info) Description 06/11/2021 Lab Requisition [facility] Laboratory Services [address] [place] [address] [place] [address] [place] [address] Social History Tobacco Use Types [...] - 40 mg/dL 06/11/2021 5:53 PM CDT [facility] Blood Collection / Unknown 06/11/2021 11:20 AM CDT 06/11/2021 1:21 PM CDT Nargis Guy MD CHEMISTRY ORDERABLES Final Resul t [facility] CLIA# [id number] [address] [facility] [place] [address] * (ABNORMAL) CBC WITH DIFFERENTIAL (06/11/2021 11:20 AM CDT) Pathologist [facility] WBC 8.8 4.5 - 10.5 K/uL 06/11/2021 1:38 PM CDT [facility] RBC 3.64(L) 3.90 - 4.90 M/uL 06/11/2021 1:38 PM CDT [facility] HEMOGLOBIN 10.1(L) 11.8 - 14.8 g/dL 06/11/2021 1:38 PM CDT [facility] HEMATOCRIT 31.5(L) 35.5 - 44.0 % 06/11/2021 1:38 PM CDT [facility] MCV 86.7 82.0 - 99.0 fL 06/11/2021 1:38 PM CDT [facility] MCH 27.9 27.8 - 34.5 pg 06/11/2021 1:38 PM CDT [facility] MCHC 32.2(L) 32.5 - 35.5 g/dL 06/11/2021 1:38 PM CDT [facility] RDW 15.8(H) 11.5 - 14.5 % 06/11/2021 1:38 PM CDT [facility] PLATELETS 470(H) 160 - 420 K/uL 06/11/2021 1:38 PM CDT [facility] MPV 8.0(L) 8.7 - 12.7 fL 06/11/2021 1:38 PM CDT [facility] LABORATORY SERVICES [facility] NEUTROPHILS 62 % 06/11/2021 1:38 PM CDT [facility] LABORATORY SERVICES [facility] LYMPHOCYTES 23 % 06/11/2021 1:38 PM CDT [facility] LABORATORY SERVICES [facility] MONOCYTES 9 % 06/11/2021 1:38 PM CDT [facility] LABORATORY SERVICES [facility] EOSINOPHILS 5 % 06/11/2021 1:38 PM CDT [facility] LABORATORY SERVICES [facility] BASOPHILS 1 % 06/11/2021 1:38 PM CDT [facility] LABORATORY SERVICES [facility] NEUTROPHIL ABSOLUTE 5.40 1.90 - 7.00 K/uL 06/11/2021 1:38 PM CDT [facility] LABORATORY SERVICES [facility] LYMPHOCYTE ABSOLUTE 2.00 0.70 - 4.50 K/uL 06/11/2021 1:38 PM CDT [facility] LABORATORY [facility] MONOCYTE ABSOLUTE 0.80 0.10 - 1.30 K/uL 06/11/2021 1:38 PM CDT [facility] LABORATORY SERVICES [facility] EOSINOPHIL ABSOLUTE 0.50 0.00 - 0.70 K/uL 06/11/2021 1:38 PM CDT [facility] LABORATORY SERVICES [facility] BASOPHILS ABSOLUTE 0.10 0.00 - 0.20 K/uL 06/11/2021 1:38 PM CDT [facility] Blood Collection / Unknown 06/11/2021 11:20 AM CDT 06/11/2021 1:21 PM CDT us Nargis Guy MD HEMATOLOGY ORDERABLES Final Resu lt [facility] CLIA# [id number] [place] [address] * (ABNORMAL) COMPREHENSIVE METABOLIC PANEL (06/11/2021 11:20 AM CDT) SODIUM 140 136 - 145 mmol/L 06/11/2021 1:52 PM CDT [facility] POTASSIUM 4.1 3.4 - 5.1 mmol/L 06/11/2021 1:52 PM [facility] CHLORIDE 104 98 - 107 mmol/L 06/11/2021 1:52 PM [facility] CO2 24 22 - 29 mmol/L 06/11/2021 1:52 PM [facility] CALCIUM 8.6 8.6 - 10.4 mg/dL 06/11/2021 1:52 PM [facility] BUN 10 6 - 20 mg/dL 06/11/2021 1:52 PM [facility] CREATININE 0.94 0.51 - 0.95 mg/dL 06/11/2021 1:52 PM [facility] GLUCOSE 157(H) 74 - 99 mg/dL 06/11/2021 1:52 PM [facility] TOTAL PROTEIN 6.1(L) 6.3 - 8.7 g/dL 06/11/2021 1:52 PM [facility] ALBUMIN 2.7(L) 3.5 - 5.2 g/dL 06/11/2021 1:52 PM [facility] BILIRUBIN TOTAL <0.2(L) 0.3 - 1.2 mg/dL 06/11/2021 1:52 PM [facility] ALKALINE PHOSPHATASE 155(H) 40 - 150 U/L 06/11/2021 1:52 PM [facility] AST 45(H) 0 - 33 U/L 06/11/2021 1:52 PM [facility] ALT 44(H) 0 - 33 U/L 06/11/2021 1:52 PM [facility] GFR >60 mL/min/1.7 3 sq meter 06/11/2021 1:52 PM [facility] Comment: eGFR [...] 3 sq meter 06/11/2021 1:52 PM CDT [facility] LABORATORY SERVICES [facility] ANION GAP 12 8 - 16 mmol/L 06/11/2021 1:52 PM CDT [facility] Blood Collection / Unknown 06/11/2021 11:20 AM CDT 06/11/2021 1:21 PM CDT us Nargis Guy MD CHEMISTRY ORDERABLES Final Resul t [facility] CLIA# [id number] [place] [address] documented in this encounter Visit Diagnoses Not on filedocumented in this encounter
--- OUTSIDE RECORDS SUMMARY | 2025-09-13 15:35 | XMS_ITS | Encounter Summary ---
Author Organization [facility] Address [address] [place] [address] Care Team Providers Care Machine Adjuster Leader Case Trim Name Role Phone Unavailable Primary Care Provider Unavailabl e Encounter Details Date Type Department Care Team (Late st Contact Info) Description 06/18/2021 Lab Requisition [facility] Laboratory Services [address] [place] [address] [place] [address] [place] [address] Social History Tobacco Use Types [...] - 30 mm/Hr 06/18/2021 10:14 AM CDT [facility] Blood Collection / Unknown 06/18/2021 4:15 AM CDT 06/18/2021 8:44 AM CDT Nargis Guy MD HEMATOLOGY ORDERABLES Final Resu lt Performing Organization Address City/[facility]/ZIP Co de Phone Number [facility] CLIA# [id number] [place], [place] [address] * RETICULOCYTES (06/18/2021 4:15 AM CDT) Pathologist [facility] RETICULOCYTES 2.0 0.4 - 2.0 % 06/18/2021 8:52 AM CDT [facility] IMMATURE RETIC FRACTION 0.6 % 06/18/2021 8:52 AM CDT [facility] RETICULOCYTE, ABSOLUTE 0.0651 0.0250 - 0.1480 10e6/uL 06/18/2021 8:52 AM CDT [facility] Blood Collection / Unknown 06/18/2021 4:15 AM CDT 06/18/2021 8:44 AM CDT Nargis Guy MD HEMATOLOGY ORDERABLES Final Resu lt Performing Organization Address City/[facility]/ZIP Co de Phone Number [facility] CLIA# [id number] [place] [address] * (ABNORMAL) PREALBUMIN (06/18/2021 4:15 AM CDT) PREALBUMIN 14(L) 20 - 40 mg/dL 06/18/2021 11:37 AM CDT [facility] Blood Collection / Unknown 06/18/2021 4:15 AM CDT 06/18/2021 8:15 AM CDT Nargis Guy MD CHEMISTRY ORDERABLES Final Resul t [facility] CLIA# [id number] [address] [place] [address] * (ABNORMAL) IRON, TIBC, AND PERCENT SATURATION (06/18/2021 4:15 AM CDT) IRON 34(L) 37 - 145 ug/dL 06/18/2021 8:54 AM CDT [facility] TIBC 146(L) 265 - 497 ug/dL 06/18/2021 8:54 AM CDT [facility] IRON % SATURATION 23 20 - 55 % 06/18/2021 8:54 AM CDT [facility] Blood Collection / Unknown 06/18/2021 4:15 AM CDT 06/18/2021 8:18 AM CDT Nargis Guy MD CHEMISTRY ORDERABLES Final Resul t [facility] CLIA# [id number] [place] [address] * (ABNORMAL) C-REACTIVE PROTEIN (06/18/2021 4:15 AM CDT) CRP 51.3(H) <5.0 mg/L 06/18/2021 8:50 AM CDT [facility] Blood Collection / Unknown 06/18/2021 4:15 AM CDT 06/18/2021 8:18 AM CDT Nargis Guy MD CHEMISTRY ORDERABLES Final Resul t [facility] CLIA# [id number] [place] [address] * (ABNORMAL) CBC WITH DIFFERENTIAL (06/18/2021 4:15 AM CDT) [facility] WBC 7.9 4.5 - 10.5 K/uL 06/18/2021 8:52 AM CDT [facility] RBC 3.30(L) 3.90 - 4.90 M/uL 06/18/2021 8:52 AM CDT [facility] HEMOGLOBIN 9.0(L) 11.8 - 14.8 g/dL 06/18/2021 8:52 AM CDT [facility] HEMATOCRIT 28.2(L) 35.5 - 44.0 % 06/18/2021 8:52 AM CDT [facility] MCV 85.3 82.0 - 99.0 fL 06/18/2021 8:52 AM CDT [facility] MCH 27.3(L) 27.8 - 34.5 pg 06/18/2021 8:52 AM CDT [facility] MCHC 32.0(L) 32.5 - 35.5 g/dL 06/18/2021 8:52 AM CDT [facility] RDW 15.8(H) 11.5 - 14.5 % 06/18/2021 8:52 AM CDT [facility] PLATELETS 379 160 - 420 K/uL 06/18/2021 8:52 AM CDT [facility] MPV 7.4(L) 8.7 - 12.7 fL 06/18/2021 8:52 AM CDT [facility] NEUTROPHILS 59 % 06/18/2021 8:52 AM CDT [facility] LYMPHOCYTES 28 % 06/18/2021 8:52 AM CDT [facility] MONOCYTES 8 % 06/18/2021 8:52 AM CDT [facility] EOSINOPHILS 4 % 06/18/2021 8:52 AM CDT [facility] BASOPHILS 1 % 06/18/2021 8:52 AM CDT [facility] NEUTROPHIL ABSOLUTE 4.70 1.90 - 7.00 K/uL 06/18/2021 8:52 AM CDT [facility] LYMPHOCYTE ABSOLUTE 2.20 0.70 - 4.50 K/uL 06/18/2021 8:52 AM CDT [facility] MONOCYTE ABSOLUTE 0.70 0.10 - 1.30 K/uL 06/18/2021 8:52 AM CDT [facility] SERVICES [facility] EOSINOPHIL ABSOLUTE 0.30 0.00 - 0.70 K/uL 06/18/2021 8:52 AM CDT [facility] BASOPHILS ABSOLUTE 0.00 0.00 - 0.20 K/uL 06/18/2021 8:52 AM CDT [facility] Blood Collection / Unknown 06/18/2021 4:15 AM CDT 06/18/2021 8:44 AM CDT us Nargis Guy MD HEMATOLOGY ORDERABLES Final Resu lt [facility] CLIA# [id number] [place] [address] * (ABNORMAL) COMPREHENSIVE METABOLIC PANEL (06/18/2021 4:15 AM CDT) SODIUM 140 136 - 145 mmol/L 06/18/2021 8:50 AM CDT [facility] POTASSIUM 3.7 3.4 - 5.1 mmol/L 06/18/2021 8:50 AM CDT [facility] CHLORIDE 105 98 - 107 mmol/L [...] 3 sq meter 06/18/2021 8:50 AM CDT [facility] ANION GAP 12 8 - 16 mmol/L 06/18/2021 8:50 AM CDT [facility] Blood Collection / Unknown 06/18/2021 4:15 AM CDT 06/18/2021 8:18 AM CDT us Nargis Guy MD CHEMISTRY ORDERABLES Final Resul t [facility] CLIA# [id number] [address] [place] [address] documented in this encounter Visit Diagnoses Not on filedocumented in this encounter
--- OUTSIDE RECORDS SUMMARY | 2025-09-13 15:35 | XMS_ITS | Encounter Summary ---
Author Organization [facility] Health Address [address] [place] [address] Care Team Providers Care Party Director Name Role Phone Karime Aguilera RN, Haresh K MD Primary Care Provider [phone] Reason for Visit * Reason Onset Date Comments Nurse Only 01/18/2025 Encounter Details Date Type Department Care Team (Late st Contact Info) Description 01/18/2025 Telephone [facility] AMPOULE SEALER [address] [place] [address] Christy Khan MD [address] [facility] [place] [address] Nurse Only Social History Tobacco [...] her to give our office a call. ATIONS FORESTER * Telephone Encounter - Tito Dunaway - 01/18/2025 1:04 PM CST Muna returning missed call for Juliann and request a nurse calls Juliann phone Muna will be occupied with another patient and wont be able to answer ATIONS FORESTER documented in this encounter Plan of Treatment Not on file documented as of this encounter Visit Diagnoses Not on filedocumented in this encounter Care Teams Party Director Relationship Specialty Start Date End Date Gurvinder Renteria MD [address] [place] [address] PCP - General 01/01/22 Karime Aguilera, RN 05/07/18 documented as of this encounter
--- OUTSIDE RECORDS SUMMARY | 2025-09-13 15:35 | XMS_ITS | Encounter Summary ---
Author Organization [facility] Address [address] [place] [address] Care Team Providers Care Sanitizer Name Role Phone Murali Silva MD Primary Care Provider [phone] Karime Aguilera RN [facility] Gurvinder Stephens MD Primary Care Provider Reason for Visit * Reason Onset Date Comments Update 05/06/2018 Encounter Details Date Type Department Care Team (Late st Contact Info) Description 05/06/2018 Telephone [facility] [address] [place] [id number] Christy Khan MD [address] [address] Update Social History Tobacco Use Types Packs/Day [...] Miscellaneous Notes * Telephone Encounter - Charlotte Ridre RN - 05/06/2018 11:49 AM CDT Pt [...] like a call back please. Pt callback #[phone] documented in this encounter Plan of Treatment Not on file documented as of this encounter Visit Diagnoses Not on filedocumented in this encounter Care Teams Sanitizer Relationship Specialty Start Date End Date Murali Silva MD [address] [place] [address] PCP - General 03/03/18 12/31/21 Gurvinder Renteria MD [address] [place] [address] PCP - General 01/01/22 Karime Aguilera RN 05/07/18 documented as of this encounter
--- OUTSIDE RECORDS SUMMARY | 2025-09-13 15:35 | XMS_ITS | Encounter Summary ---
Author Organization [facility] Address [address] [place] [address] Care Team Providers Care Lime [employer] And Recausticizing Operator Name Role Phone Unavailable Primary Care Provider Unavailabl e Encounter Details Date Type Department Care Team (Late st Contact Info) Description 06/11/2021 Lab Requisition [facility] Laboratory Services [id number] [place] [address] [place] [id number] [place] [address] Social History Tobacco Use Types [...] to Dark Yellow 06/11/2021 7:56 AM CDT [facility] CLARITY UA Slightly Cloudy(A) Clear 06/11/2021 7:56 AM CDT [facility] - [facility] SPECIFIC GRAVITY UA 1.006 1.003 - 1.035 06/11/2021 7:56 AM CDT [facility] - [facility] PH UA 6.0 5.0 - 8.0 06/11/2021 7:56 AM CDT [facility] LEUKOCYTE ESTERASE UA 3+(A) Negative 06/11/2021 7:56 AM CDT [facility] NITRITE UA Negative Negative 06/11/2021 7:56 AM CDT [facility] PROTEIN UA Negative Negative 06/11/2021 7:56 AM CDT [facility] GLUCOSE UA Negative Negative 06/11/2021 7:56 AM CDT [facility] KETONES UA Negative Negative 06/11/2021 7:56 AM CDT [facility] UROBILINOGEN UA Normal <2.0 mg/dL 7:56 AM CDT [facility] BILIRUBIN UA Negative Negative 06/11/2021 7:56 AM CDT [facility] BLOOD UA 1+(A) Negative 06/11/2021 7:56 AM CDT [facility] WBC UA 11-25(A) 0 - 2 /hpf 06/11/2021 7:56 AM CDT [facility] RBC UA 3-5(A) 0 - 2 /hpf 06/11/2021 7:56 AM CDT [facility] BACTERIA UA Negative Negative /hpf 06/11/2021 7:56 AM CDT [facility] EPITHELIAL CELLS, URINE 0-5 0 - 5 /hpf 06/11/2021 7:56 AM CDT [facility] HYALINE CAST None Seen None Seen, 0-2 /lpf 06/11/2021 7:56 AM CDT [facility] Urine URINE SPECIMEN OBTAINED BY CLEAN CATCH PROCEDURE / Unknown Collection / Unknown 06/11/2021 12:01 AM CDT 06/11/2021 7:42 AM CDT us Nargis Guy MD URINE ORDERABLES Final Result [facility] CLIA# [id number] [place] [address] * URINE CULTURE (06/11/2021 12:01 AM CDT) CULTURE No growth at 24 hours 06/12/2021 1:08 PM CDT [facility] Urine Collection / Unknown 06/11/2021 12:01 AM CDT 06/11/2021 7:42 AM CDT us Nargis Guy MD MICROBIOLOGY - GENERAL ORDERABLE S Final Result Performing Organization Address City/[facility]/ZIP Co de Phone Number [facility] CLIA# [id number] [address] [place] [address] documented in this encounter Visit Diagnoses Not on filedocumented in this encounter
[2025-09-13 16:17] LABS: CRP 6.1 mg/dL (<1.0)
[2025-09-13 17:20] VITALS: BMI 54.6
--- NOTE | 2025-09-13 17:20 | ADMGEN ---
This patient, Juliann Moody, was admitted to 2 Medical Room 251-. Patient/family oriented to hospital policies and general routines including ID bracelet, bed and alarms, visiting hours, pain management, procedures, bathroom and other care routines, personal items, smoking policy, room service/diet, and visiting hours. Information on how to activate the Rapid Response Team has been discussed. Patient/Family are encouraged to report perceived risks to care and to ask questions if they do not understand what they are told or what they should do.
[2025-09-13 17:31] VITALS: BP 149/61; PULSE 83; RESP 16; TEMP 36.9; O2SAT 100
[2025-09-13] MEDS: RIVAROXABAN 20 MG TABLET PO (17:45)
[2025-09-13 17:46] VITALS: PULSE 83; RESP 16; O2SAT 100
--- NOTE | 2025-09-13 18:45 | PC.NURSE ---
Set bed to lowest position and set alarm following assessment. Returned to room for round and bed was elevated and off of alarm position. Educated patient on bed alarm and bed controls. Reset bed to lowest position and reset alarm.
[2025-09-13] MEDS: PRIMIDONE 250 MG TABLET PO (19:59)
[2025-09-13] MEDS: MICONAZOLE NITRATE 2% CREAM 30 GM TUBE 1 APPLIC TOPICAL (20:02)
[2025-09-13] MEDS: GABAPENTIN 400 MG CAPSULE 800 MG PO (20:02)
[2025-09-13 20:42] VITALS: BP 153/71; PULSE 88; RESP 20; TEMP 36.5; O2SAT 94
[2025-09-13] MEDS: NORTRIPTYLINE HCL 25 MG CAPSULE PO (20:59)
[2025-09-13] MEDS: INSULIN GLARGINE (*BKC) 100 UNITS/ML 8 UNITS SUB-Q (21:00)
[2025-09-14 04:00] VITALS: BP 149/89; PULSE 69; RESP 20; TEMP 36.6; O2SAT 96
[2025-09-14 05:06] LABS: Hematocrit 47.0 % (37.0-47.0); Hemoglobin 14.8 g/dL (12.0-15.0); Immature Granulocyte Percent A 0.6 % (0-0.5); Lymphocytes Absolute Auto 3.56 K/mm3 (0.9-3.2); Mean Corpuscular HGB Conc 31.5 g/dl (32-36); Mean Corpuscular Hemoglobin 28.9 pg (26-34); Mean Corpuscular Volume 91.8 fl (80-100); Nucleated Red Blood Cells Absolute Auto 0.000 K/mm3 (0.0-0.012); Nucleated Red Blood Cells Perc 0.0 % (0.0-0.2); Platelet Count Result 241 k/mm3 (150-375); Red Blood Count 5.12 M/mm3 (4.2-5.4); White Blood Count 10.9 K/mm3 (4.5-10.0)
[2025-09-14 05:29] LABS: Anion Gap 7 mmol/L (4-12); Blood Urea Nitrogen 13 mg/dL (7-17); Calcium 8.5 mg/dL (8.4-10.2); Carbon Dioxide 20 mmol/L (22-30); Chloride 108 mmol/L (98-107); Estimated CRCL calculation 99 ml/min; Estimated Glomerular Filt Rate > 60; Glucose 120 mg/dL (65-110); Potassium 4.6 mmol/L (3.4-5.0); Sodium 135 mmol/L (137-145)
[2025-09-14] MEDS: CITALOPRAM HYDROBROMIDE 20 MG TABLET 40 MG PO (09:08)
[2025-09-14] MEDS: ATORVASTATIN 40 MG TABLET PO (09:09)
[2025-09-14] MEDS: PRIMIDONE 250 MG TABLET PO ×2 (09:09→20:08)
[2025-09-14] MEDS: cefTRIAXone 1 GM in SODIUM CHLORIDE 0.9% IV 50 ML 100 ML IVPB (09:09)
[2025-09-14] MEDS: NORTRIPTYLINE HCL 25 MG CAPSULE PO ×3 (09:09→17:00)
[2025-09-14] MEDS: FAMOTIDINE 20 MG TABLET 40 MG PO (09:09)
[2025-09-14] MEDS: MICONAZOLE NITRATE 2% CREAM 30 GM TUBE 1 APPLIC TOPICAL ×2 (09:10→20:06)
[2025-09-14] MEDS: GABAPENTIN 400 MG CAPSULE 800 MG PO ×3 (09:14→20:10)
--- NOTE | 2025-09-14 10:14 | P.PNIM_ITS ---
Progress Note: A&P Assessment and Plan (1) UTI (urinary tract infection): Qualifiers: Hematuria presence: without hematuria Urinary tract infection type: acute cystitis Qualified Code(s): N30.00 - Acute cystitis without hematuria Code(s): N39.0 - Urinary tract infection, site not specified Status: Acute Assessment and Plan: Patient presented here on 09/13 with generalized weakness, dysuria, and urinary frequency. UA consistent with UTI. No evidence of pyelonephritis or other acute intra-abdominal/pelvic process on CT of the abdomen/pelvis. - UC pending - previous micro reviewed. Patient grew E coli on 12/14/2024 that was intermediate to Unasyn and resistant to Cipro/Levaquin/Bactrim. Remain susceptible to ceftriaxone. - started on Ceftriaxone on 09/13 - IV fluids: 1L bolus 09/14: Pt no longer disoriented. Denies urinary sx but states did not have any t o begin with, just had the AMS. -WBC decreasing, will continue abx, plan to switch to oral tomorrow (2) Failure to thrive: Qualifiers: Failure to thrive age range: in adult Qualified Code(s): R62.7 - Adult failure to thrive Status: Acute Assessment and Plan: Patient recently admitted here in June of 2025 for inability to care for herself. She was discharged to [facility], patient signed herself on XX due to XX. Returning today with generalized weakness and UTI. Now also reporting she feels she is unable to care for herself at home. - care coordination consulted for discharge planning/mcfp placement - PT/OT eval for discharge planning 09/14: Pt reports that she currently feels comfortable living at home in terms of caring for herself with her HH aide visits, she is not wanting to be placed upon discharge. (3) Candidal skin infection: Code(s): B37.2 - Candidiasis of skin and nail Status: Acute Assessment and Plan: Patient has erythematous itchy rash to her bilateral breast folds, pannus, and gluteal cleft consistent with Robyn. Patient has been applying diaper rash at home to the sites without resolution. Has not been utilizing an antifungal. - miconazole cream - tolnaftate powder - wound consulted 09/14: Pt reports much better rash today, minimal to under R breast and gluteal cleft, continue with above tx (4) T2DM (type 2 diabetes mellitus): Qualifiers: Diabetes mellitus termite treater insulin use: with termite treater use Code(s): E11.9 - Type 2 diabetes mellitus without complications Status: Chronic Assessment and Plan: History of type 2 diabetes on insulin. Initial glucose upon admission, 157. - hypoglycemia protocol - POC blood glucose ACHS - home medication: Continue glargine, pharmacist to adjust. Hold metformin. - correct regimen ordered - high dose TIDWM, based off BMI - A1C 6.7% on 06/22/202509/14: -FBS today 120, continue to monitor (5) Hypertension: Qualifiers: Hypertension type: unspecified Qualified Code(s): I10 - Essential (primary) hypertension Code(s): I10 - Essential (primary) hypertension Status: Chronic Assessment and Plan: - chronic, currently 160/91. - continue home medications: Lisinopril - monitor 09/14: 149/89 before AM meds, continue to trend -Upon recheck, 129/66 (6) Atrial fibrillation: Qualifiers: Atrial fibrillation type: unspecified chronic Qualified Code(s): I48.20 - Chronic atrial fibrillation, unspecified Code(s): I48.91 - Unspecified atrial fibrillation Status: Chronic Assessment and Plan: Patient has history of atrial fibrillation on anticoagulation. Currently rate controlled. - continue anticoagulation: Xarelto (7) Bipolar disorder: Qualifiers: Active/Remission status: remission status unspecified Qualified Code(s): F31.9 - Bipolar disorder, unspecified Code(s): F31.9 - Bipolar disorder, unspecified Status: Chronic Assessment and Plan: - continue Celexa (8) COPD (chronic obstructive pulmonary disease): Qualifiers: COPD type: unspecified COPD Qualified Code(s): J44.9 - Chronic obstructive pulmonary disease, unspecified Code(s): J44.9 - Chronic obstructive pulmonary disease, unspecified Status: Chronic Assessment and Plan: - mild intermittent expiratory wheeze not well appreciated on exam line, no increased sputum production worrisome for exacerbation. - DuoNeb p.r.n. - Continue Symbicort. 09/14: Mild intermittent expiratory wheezes to RUL and RLL, reminded her to ask for her inhaler to help with this Plan Diet: Heart healthy GI Prophylaxis: N/a DVT Prophylaxis: Xarelto IV fluids: 1 L bolus Lines/Tubes: Peripheral IV Code Status: Full code Pending UTI management as well as CC / therapy recs Time Spent With Patient Time: 40 Subjective Date/time seen: 09/14/25 1118 Interval history: Pt resting in bed in no distress upon my visit. Pt with no complaints today, she reports that she currently feels comfortable living at home in terms of caring for herself with her HH aide visits, she is not wanting to be placed upon discharge. She also reports that her fungal rash is a lot better. Denies CP, SOB, or any other acute sx. When asked about UTI sx, she denies them all but does state I was out of my mind, that is how my HH nurse knew I had a UTI. A&O x4 today. Review of Systems Review of Systems: All systems reviewed & are unremarkable except as noted in HPI and below Exam Const: General: comfortable and no acute distress Other: , female, obese body habitus high, chronically ill-appearing HENMT: Face/Nose/Sinus: Normal nares present Mouth: Yes moist mucous me mbranes Other: Edentulous Eyes: General: appearance normal, both eyes and all related structures Sclera: sclerae normal Pupils: Equal, round and reactive pupils present EOM: EOMs intact bilaterally Resp: Effort & Inspection: normal respiratory effort Other: Expiratory intermittent wheezing to RUL an RLL Cardio: Rate: regular rate Rhythm: regular rhythm Other: S1-S2 present without murmur, rub, ectopy GI: Other: Abdomen soft, nondistended, nontender. Normoactive bowel sounds in all quadrants. Skin: Wounds: no wounds Other: Mild pruritic rash under R breast and with some to gluteal cleft consistent with robyn, per pt, has reduced significantly since admission Neuro: Cranial nerves: Yes Equal, round and reactive pupils present Speech: normal speech Sensory Exam: normal sensation Other: Generalized weakness, A&O x4 Extrem: Other: +1 nonpitting edema to bilateral lower e xtremities. Psych: Mental Status: mental status grossly normal Affect: normal affect Other: Fair insight and judgment. Objective Data Vital Signs Vital Signs: Vital Signs - 24 hr 09/13/25 12:25 09/13/25 17:31 09/13/25 17:46 Temperature 98.6 F 98.4 F Pulse Rate 89 83 83 Respiratory Rate 16 16 16 Blood Pressure 160/91 H 149/61 H Pulse Oximetry 98 100 100 Oxygen Delivery Room Air Room Air 09/13/25 20:00 09/13/25 20:42 09/14/25 04:00 Temperature 97.7 F 97.9 F Pulse Rate 88 69 Respiratory Rate 20 20 Blood Pressure 153/71 H 149/89 H Pulse Oximetry 94 96 Oxygen Delivery Room Air Intake/Output Intake/Output: Intake & Output 09/11/25 09/12/25 09/13/25 09/14/25 23:59 23:59 23:59 23:59 Intake Total 1050 480 Output Total 50 Balance 1000 480 Meds/Results Medications: Active Medications Generic Name Dose Route Start Last Admin Trade Name Freq PRN Reason Stop Dose Admin Albuterol/Ipratropium 3 ml 09/13/25 20:18 Ipratropium 0.5 Mg/Albuterol Sulfate 2.5 Mg (Base) Ampul.Neb 3 Ml INHALATION Q6HRT PRN Shortness Of Breath Or Wheezing Atorvastatin Calcium 40 mg 09/14/25 09:00 09/14/25 09:09 Atorvastatin 40 Mg Tablet PO 40 mg DAILY FAHAD Administration Citalopram Hydrobromide 40 mg 09/14/25 09:00 09/14/25 09:08 Citalopram Hydrobromide 20 Mg Tablet PO 40 mg DAILY FAHAD Administration Dextrose 12.5 gm 09/13/25 15:03 Dextrose 50% 25 Gm/50 Ml Syringe IV PUSH PRN PRN Hypoglycemia Protocol Docusate Sodium 100 mg 09/13/25 15:04 Docusate Sodium 100 Mg Capsule PO PRN PRN Constipation Famotidine 40 mg 09/14/25 09:00 09/14/25 09:09 Famotidine 20 Mg Tablet PO 40 mg DAILY FAHAD Administration Gabapentin 800 mg 09/13/25 21:00 09/14/25 09:14 Gabapentin 400 Mg Capsule PO 800 mg TID@0900,1400,2100 FAHAD Administration Glucagon 1 mg 09/13/25 15:03 Glucagon For Inj 1 Mg Vial IM PRN PRN Hypoglycemia Protocol Glucose 15 gm 09/13/25 15:03 Glucose Oral Gel 15 Gm Of Glucse In 37.5 Gm Tube PO PRN PRN Hypoglycemia Protocol Ceftriaxone Sodium 1 gm/ 50 mls @ 100 mls/hr 09/14/25 09:00 09/14/25 09:09 Sodium Chloride IVPB 100 mls/hr Q24H FAHAD Administration Dextrose 1,000 mls @ 100 mls/hr 09/13/25 15:03 Dextrose 5% 1,000 Ml IVPB PRN PRN Hypoglycemia Protocol Insulin Aspart 4 - 8 units 09/13/25 17:00 09/14/25 09:06 Insulin Aspart (*Bkc) 100 Units/Ml SUB-Q Not Given TIDWM FAHAD Protocol Insulin Glargine 8 units 09/13/25 21:00 09/13/25 21:00 Insulin Glargine (*Bkc) 100 Units/Ml SUB-Q 8 units QHS FAHAD Administration Lisinopril 30 mg 09/14/25 09:00 09/14/25 09:09 Lisinopril 10 Mg Tablet PO 30 mg DAILY FAHAD Administration Miconazole Nitrate 1 applic 09/13/25 21:00 09/14/25 09:10 Miconazole Nitrate 2% Cream 30 Gm Tube TOPICAL 1 applic Q12HR FAHAD Administration Miscellaneous Information 1 each 09/13/25 16:22 (Tolnaftate 1 % Powder) Is Not A Pharmacy Item. Please Obtain From [facility]. XX 09/14/25 16:21 PRN PRN Informational Nortriptyline HCl 25 mg 09/13/25 20:30 09/14/25 09:09 Nortriptyline Hcl 25 Mg Capsule PO 25 mg TID FAHAD Administration Oxybutynin Chloride 5 mg 09/13/25 21:00 09/13/25 19:59 Oxybutynin Chloride 5 Mg Tablet PO 5 mg HS FAHAD Administration Polyethylene Glycol 17 gm 09/13/25 17:00 09/14/25 09:09 Polyethylene Glycol 3350 17 Gm Powd.Pack PO 17 gm BID FAHAD Administration Primidone 250 mg 09/13/25 21:00 09/14/25 09:09 Primidone 250 Mg Tablet PO 250 mg Q12HR FAHAD Administration Rivaroxaban 20 mg 09/13/25 17:00 09/13/25 17:45 Rivaroxaban 20 Mg Tablet PO 20 mg DAILY@1700 FAHAD Administration Ropinirole HCl 3 mg 09/13/25 21:00 09/13/25 19:59 Ropinirole Hcl 1 Mg Tablet PO 3 mg HS FAHAD Administration Fluticasone/Salmeterol 2 puff 09/14/25 08:00 Fluticasone/Salmeterol 115-21 Mcg Inhaler 1 Puff INHALATION Q12HRT PRN SHORTNESS OF BREATH Radiology Results: ITS Impressions Abdomen/Pelvis CT 09/13/25 13:43 IMPRESSION: 1. No acute intra-abdominal/pelvic process. Labs Labs: Laboratory Results - last 24 hr 09/13/25 09/13/25 09/13/25 12:41 16:01 17:23 WBC 11.4 H RBC 5.54 H Hgb 16.0 H Hct 49.8 H MCV 89.9 MCH 28.9 MCHC 32.1 RDW 16.5 H Plt Count 301 MPV 9.6 Immature Gran % (Auto) 0.8 H Neut % (Auto) 63.7 Lymph % (Auto) 27.2 [facility] % (Auto) 6.7 Eos % (Auto) 1.2 Baso % (Auto) 0.4 Lymph # (Auto) 3.10 [facility] # (Auto) 0.8 H Eos # (Auto) 0.1 Baso # (Auto) 0.1 Abs Immat Gran (auto) 0.09 H Absolute Neuts (auto) 7.3 H Absolute Nucleated RBC 0.000 Nucleated RBC % 0.0 Sodium 139 Potassium 4.3 Chloride 107 Carbon Dioxide 26 Anion Gap 6 BUN 14 D Creatinine 0.82 Estim Creat Clear Calc 83 Estimated GFR > 60 Glucose 157 H POC Capillary Glucose 132 H Lactic Acid 1.4 Calcium 9.1 Total Bilirubin 0.6 AST 25 ALT 22 Alkaline Phosphatase 101 C-Reactive Protein 6.1 H Total Protein 7.7 Albumin 4.2 Lipase 35 Urine Color Dark yellow Urine Appearance Clear Urine pH 5.5 Ur Specific [place] 1.026 Urine Protein 1+ H Urine Glucose (UA) 3+ H Urine Ketones Trace H Ur Blood (Man) Negative Urine Nitrate Negative Urine Bilirubin Negative Urine Urobilinogen 1.0 Add Ur Microanalysis Reviewed Leukocyte Esterase Rfl 2+ H Urine RBC 6-10 H Urine WBC 51-100 H Ur Squamous Epith Cells None seen Urine Bacteria 4+ H Urine Casts 0-2 09/13/25 09/14/25 09/14/25 20:41 04:43 07:16 WBC 10.9 H RBC 5.12 Hgb 14.8 Hct 47.0 MCV 91.8 MCH 28.9 MCHC 31.5 L RDW 16.3 H Plt Count 241 MPV 9.6 Immature Gran % (Auto) 0.6 H Neut % (Auto) 57.4 Lymph % (Auto) 32.5 [facility] % (Auto) 6.9 Eos % (Auto) 2.1 Baso % (Auto) 0.5 Lymph # (Auto) 3.56 H [facility] # (Auto) 0.8 H Eos # (Auto) 0.2 Baso # (Auto) 0.1 Abs Immat Gran (auto) 0.07 H Absolute Neuts (auto) 6.3 Absolute Nucleated RBC 0.000 Nucleated RBC % 0.0 Sodium 135 L Potassium 4.6 Chloride 108 H Carbon Dioxide 20 L Anion Gap 7 BUN 13 Creatinine 0.68 L Estim Creat Clear Calc 99 Estimated GFR > 60 Glucose 120 H POC Capillary Glucose 144 H 133 H Lactic Acid Calcium 8.5 Total Bilirubin AST ALT Alkaline Phosphatase C-Reactive Protein Total Protein Albumin Lipase Urine Color Urine Appearance Urine pH Ur Specific [place] Urine Protein Urine Glucose (UA) Urine Ketones Ur Blood (Man) Urine Nitrate Urine Bilirubin Urine Urobilinogen Add Ur Microanalysis Leukocyte Esterase Rfl Urine RBC Urine WBC Ur Squamous Epith Cells Urine Bacteria Urine Casts Quality VTE Prophylaxis VTE prophylaxis: pharmacologic ordered
[2025-09-14 13:20] VITALS: BP 129/66; PULSE 81; RESP 16; TEMP 36.9; O2SAT 97
[2025-09-14] MEDS: RIVAROXABAN 20 MG TABLET PO (17:01)
[2025-09-14] MEDS: INSULIN GLARGINE (*BKC) 100 UNITS/ML 8 UNITS SUB-Q (20:06)
[2025-09-14 21:09] VITALS: BP 131/59; PULSE 70; RESP 20; TEMP 36.7; O2SAT 95
[2025-09-15 04:47] LABS: Hematocrit 45.6 % (37.0-47.0); Hemoglobin 14.5 g/dL (12.0-15.0); Immature Granulocyte Percent A 0.8 % (0-0.5); Lymphocytes Absolute Auto 2.79 K/mm3 (0.9-3.2); Mean Corpuscular HGB Conc 31.8 g/dl (32-36); Mean Corpuscular Hemoglobin 28.8 pg (26-34); Mean Corpuscular Volume 90.5 fl (80-100); Nucleated Red Blood Cells Absolute Auto 0.000 K/mm3 (0.0-0.012); Nucleated Red Blood Cells Perc 0.0 % (0.0-0.2); Platelet Count Result 241 k/mm3 (150-375); Red Blood Count 5.04 M/mm3 (4.2-5.4); White Blood Count 9.3 K/mm3 (4.5-10.0)
[2025-09-15 05:16] LABS: Alanine Aminotransferase 17 U/L (6-35); Albumin Level 3.4 g/dL (3.5-5.1); Alkaline Phosphatase 82 U/L (38-126); Anion Gap 4 mmol/L (4-12); Aspartate Amino Transferase 25 U/L (14-36); Bilirubin,Total 0.4 mg/dL (0.2-1.3); Blood Urea Nitrogen 12 mg/dL (7-17); Calcium 8.6 mg/dL (8.4-10.2); Carbon Dioxide 28 mmol/L (22-30); Chloride 105 mmol/L (98-107); Estimated CRCL calculation 83 ml/min; Estimated Glomerular Filt Rate > 60; Glucose 124 mg/dL (65-110); Potassium 4.3 mmol/L (3.4-5.0); Sodium 137 mmol/L (137-145); Total Protein 6.3 g/dL (6.3-8.2)
[2025-09-15 05:39] VITALS: BP 151/72; PULSE 70; RESP 20; TEMP 36.4; O2SAT 100
--- NOTE | 2025-09-15 07:47 | PM.IMPN ---
Progress Note: A&P Assessment and Plan (1) UTI (urinary tract infection): Qualifiers: Hematuria presence: without hematuria Urinary tract infection type: acute cystitis Qualified Code(s): N30.00 - Acute cystitis without hematuria Code(s): N39.0 - Urinary tract infection, site not specified Status: Acute Assessment and Plan: Patient presented here on 09/13 with generalized weakness, dysuria, and urinary frequency. UA consistent with UTI. No evidence of pyelonephritis or other acute intra-abdominal/pelvic process on CT of the abdomen/pelvis. UC pending -gram-negative bacilli previous micro reviewed. Patient grew E coli on 12/14/2024 that was intermediate to Unasyn and resistant to Cipro/Levaquin/Bactrim. Remain susceptible to ceftriaxone. started on Ceftriaxone on 09/13 IV fluids: 1L bolus WBC decreasing, will continue abx, plan to switch to oral today (2) Failure to thrive: Qualifiers: Failure to thrive age range: in adult Qualified Code(s): R62.7 - Adult failure to thrive Status: Acute Assessment and Plan: Patient recently admitted here in June of 2025 for inability to care for herself. She was discharged to [facility], patient signed herself on XX due to XX. Returning today with generalized weakness and UTI. Now also reporting she feels she is unable to care for herself at home. care coordination consulted for discharge planning/senior care placement PT/OT eval for discharge planning Pt reports that she currently feels comfortable living at home in terms of caring for herself with her HH aide visits Spoke with patient today, is open to SNF Will work with CC regarding placement upon discharge (3) Candidal skin infection: Code(s): B37.2 - Candidiasis of skin and nail Status: Acute Assessment and Plan: Patient has erythematous itchy rash to her bilateral breast folds, pannus, and gluteal cleft consistent with Robyn. Patient has been applying diaper rash at home to the sites without resolution. Has not been utilizing an antifungal. miconazole cream tolnaftate powder wound consulted Continue with above tx (4) T2DM (type 2 diabetes mellitus): Qualifiers: Diabetes mellitus exterminator insulin use: with exterminator use Code(s): E11.9 - Type 2 diabetes mellitus without complications Status: Chronic Assessment and Plan: History of type 2 diabetes on insulin. Initial glucose upon admission, 157. hypoglycemia protocol POC blood glucose ACHS home medication: Continue glargine, pharmacist to adjust. Hold metformin. correct regimen ordered - high dose TIDWM, based off BMI A1C 6.7% on 06/22/2025 (5) Hypertension: Qualifiers: Hypertension type: unspecified Qualified Code(s): I10 - Essential (primary) hypertension Code(s): I10 - Essential (primary) hypertension Status: Chronic Assessment and Plan: chronic, currently 160/91. continue home medications: Lisinopril monitor 151/72 (6) Atrial fibrillation: Qualifiers: Atrial fibrillation type: unspecified chronic Qualified Code(s): I48.20 - Chronic atrial fibrillation, unspecified Code(s): I48.91 - Unspecified atrial fibrillation Status: Chronic Assessment and Plan: Patient has history of atrial fibrillation on anticoagulation. Currently rate controlled. continue anticoagulation: Xarelto (7) Bipolar disorder: Qualifiers: Active/Remission status: remission status unspecified Qualified Code(s): F31.9 - Bipolar disorder, unspecified Code(s): F31.9 - Bipolar disorder, unspecified Status: Chronic Assessment and Plan: continue Celexa (8) COPD (chronic obstructive pulmonary disease): Qualifiers: COPD type: unspecified COPD Qualified Code(s): J44.9 - Chronic obstructive pulmonary disease, unspecified Code(s): J44.9 - Chronic obstructive pulmonary disease, unspecified Status: Chronic Assessment and Plan: mild intermittent expiratory wheeze not well appreciated on exam line, no increased sputum production worrisome for exacerbation. Lito p.r.n. Continue Symbicort Mild intermittent expiratory wheezes to RUL and RLL, reminded her to ask for her inhaler to help with this Plan Diet: Heart healthy GI Prophylaxis: N/a DVT Prophylaxis: Xarelto IV fluids: 1 L bolus Lines/Tubes: Peripheral IV Code Status: Full code Pending UTI management as well as CC / therapy recs Subjective Date/time seen: 09/15/25 07:47 Interval history: 65 y/o F with PMH of RLS, heart failure, anxiety, depression, bipolar disorder, hyperlipidemia, COPD, hypertension, and atrial fibrillation presents here with generalized weakness and dysuria. 09/15/2025 Patient resting comfortably at bedside at time of examination. Denies any chest pain, shortness a breath, nausea/vomiting, abdominal pain. Remains afebrile, without leukocytosis or major electrolyte abnormalities. Blood culture still pending, urine culture shows growth of Gram-negative bacilli. Continue treating UTI. PT/OT recommending SNF. Will work with care coordination regarding placement. Review of Systems Review of Systems: All systems reviewed & are unremarkable except as noted in HPI and below Exam Const: General: comfortable and no acute distress Other: , female, obese body habitus high, chronically ill-appearing HENMT: Face/Nose/Sinus: Normal nares present Mouth: Yes moist mucous membranes Other: Edentulous Eyes: General: appearance normal, both eyes and all related structures Sclera: sclerae normal Pupils: Equal, round and reactive pupils present EOM: EOMs intact bilaterally Resp: Effort & Inspection: normal respiratory effort Other: Expiratory intermittent wheezing to RUL an RLL Cardio: Rate: regular rate Rhythm: regular rhythm Other: S1-S2 present without murmur, rub, ectopy GI: Other: Abdomen soft, nondistended, nontender. Normoactive bowel sounds in all quadrants. Skin: Wounds: no wounds Other: Mild pruritic rash under R breast and with some to gluteal cleft consistent with robyn, per pt, has reduced significantly since admission Neuro: Cranial nerves: Yes Equal, round and reactive pupils present Speech: normal speech Sensory Exam: normal sensation Other: Generalized weakness, A&O x4 Extrem: Other: +1 nonpitting edema to bilateral lower extremities. Psych: Mental Status: mental status grossly normal Affect: normal affect Other: Fair insight and judgment. Objective Data Vital Signs Vital Signs: Vital Signs - 24 hr 09/14/25 09:09 09/14/25 13:20 09/14/25 21:09 Temperature 98.4 F 98.1 F Pulse Rate 81 70 Respiratory Rate 16 20 Blood Pressure 129/66 131/59 L Pulse Oximetry 97 95 Oxygen Delivery Room Air 09/15/25 05:39 Temperature 97.5 F L Pulse Rate 70 Respiratory Rate 20 Blood Pressure 151/72 H Pulse Oximetry 100 Oxygen Delivery Intake/Output Intake/Output: Intake & Output 09/12/25 09/13/25 09/14/25 09/15/25 23:59 23:59 23:59 23:59 Intake Total 1050 1150 Output Total 50 700 800 Balance 1000 450 -800 Meds/Results Medications: Active Medications Generic Name Dose Route Start Last Admin Trade Name Freq PRN Reason Stop Dose Admin Albuterol/Ipratropium 3 ml 09/13/25 20:18 Ipratropium 0.5 Mg/Albuterol Sulfate 2.5 Mg (Base) Ampul.Neb 3 Ml INHALATION Q6HRT PRN Shortness Of Breath Or Wheezing Atorvastatin Calcium 40 mg 09/14/25 09:00 09/14/25 09:09 Atorvastatin 40 Mg Tablet PO 40 mg DAILY FAHAD Administration Citalopram Hydrobromide 40 mg 09/14/25 09:00 09/14/25 09:08 Citalopram Hydrobromide 20 Mg Tablet PO 40 mg DAILY FAHAD Administration Dextrose 12.5 gm 09/13/25 15:03 Dextrose 50% 25 Gm/50 Ml Syringe IV PUSH PRN PRN Hypoglycemia Protocol Docusate Sodium 100 mg 09/13/25 15:04 Docusate Sodium 100 Mg Capsule PO PRN PRN Constipation Famotidine 40 mg 09/14/25 09:00 09/14/25 09:09 Famotidine 20 Mg Tablet PO 40 mg DAILY FAHAD Administration Gabapentin 800 mg 09/13/25 21:00 09/14/25 20:10 Gabapentin 400 Mg Capsule PO 800 mg TID@0900,1400,2100 FAHAD Administration Glucagon 1 mg 09/13/25 15:03 Glucagon For Inj 1 Mg Vial IM PRN PRN Hypoglycemia Protocol Glucose 15 gm 09/13/25 15:03 Glucose Oral Gel 15 Gm Of Glucse In 37.5 Gm Tube PO PRN PRN Hypoglycemia Protocol Ceftriaxone Sodium 1 gm/ 50 mls @ 100 mls/hr 09/14/25 09:00 09/14/25 09:39 Sodium Chloride IVPB Infused Q24H FAHAD Infusion Dextrose 1,000 mls @ 100 mls/hr 09/13/25 15:03 Dextrose 5% 1,000 Ml IVPB PRN PRN Hypoglycemia Protocol Insulin Aspart 4 - 8 units 09/13/25 17:00 09/14/25 17:01 Insulin Aspart (*Bkc) 100 Units/Ml SUB-Q Not Given TIDWM FAHAD Protocol Insulin Glargine 8 units 09/13/25 21:00 09/14/25 20:06 Insulin Glargine (*Bkc) 100 Units/Ml SUB-Q 8 units QHS FAHAD Administration Lisinopril 30 mg 09/14/25 09:00 09/14/25 09:09 Lisinopril 10 Mg Tablet PO 30 mg DAILY FAHAD Administration Miconazole Nitrate 1 applic 09/13/25 21:00 09/14/25 20:06 Miconazole Nitrate 2% Cream 30 Gm Tube TOPICAL 1 applic Q12HR FAHAD Administration Nortriptyline HCl 25 mg 09/13/25 20:30 09/14/25 17:00 Nortriptyline Hcl 25 Mg Capsule PO 25 mg TID FAHAD Administration Oxybutynin Chloride 5 mg 09/13/25 21:00 09/14/25 20:08 Oxybutynin Chloride 5 Mg Tablet PO 5 mg HS FAHAD Administration Polyethylene Glycol 17 gm 09/13/25 17:00 09/14/25 17:01 Polyethylene Glycol 3350 17 Gm Powd.Pack PO 17 gm BID FAHAD Administration Primidone 250 mg 09/13/25 21:00 09/14/25 20:08 Primidone 250 Mg Tablet PO 250 mg Q12HR FAHAD Administration Rivaroxaban 20 mg 09/13/25 17:00 09/14/25 17:01 Rivaroxaban 20 Mg Tablet PO 20 mg DAILY@1700 FAHAD Administration Ropinirole HCl 3 mg 09/13/25 21:00 09/14/25 13:29 Ropinirole Hcl 1 Mg Tablet PO 3 mg HS [facility] Administration Fluticasone/Salmeterol 2 puff 09/14/25 08:00 Fluticasone/Salmeterol 115-21 Mcg Inhaler 1 Puff INHALATION Q12HRT PRN SHORTNESS OF BREATH Radiology Results: ITS Impressions Abdomen/Pelvis CT 09/13/25 13:43 IMPRESSION: 1. No acute intra-abdominal/pelvic process. Labs Labs: Laboratory Results - last 24 hr 09/14/25 09/14/25 09/14/25 11:16 16:07 20:05 WBC RBC Hgb Hct MCV MCH MCHC RDW Plt Count MPV Immature Gran % (Auto) Neut % (Auto) Lymph % (Auto) [place] % (Auto) Eos % (Auto) Baso % (Auto) Lymph # (Auto) [place] # (Auto) Eos # (Auto) Baso # (Auto) Abs Immat Gran (auto) Absolute Neuts (auto) Absolute Nucleated RBC Nucleated RBC % Sodium Potassium Chloride Carbon Dioxide Anion Gap BUN Creatinine Estim Creat Clear Calc Estimated GFR Glucose POC Capillary Glucose 172 H 169 H 154 H Calcium Total Bilirubin AST ALT Alkaline Phosphatase Total Protein Albumin 09/15/25 04:38 WBC 9.3 RBC 5.04 Hgb 14.5 Hct 45.6 MCV 90.5 MCH 28.8 MCHC 31.8 L RDW 16.2 H Plt Count 241 MPV 9.3 Immature Gran % (Auto) 0.8 H Neut % (Auto) 59.3 Lymph % (Auto) 29.9 [place] % (Auto) 7.3 Eos % (Auto) 2.3 Baso % (Auto) 0.4 Lymph # (Auto) 2.79 [place] # (Auto) 0.7 H Eos # (Auto) 0.2 Baso # (Auto) 0.0 Abs Immat Gran (auto) 0.07 H Absolute Neuts (auto) 5.5 Absolute Nucleated RBC 0.000 Nucleated RBC % 0.0 Sodium 137 Potassium 4.3 Chloride 105 Carbon Dioxide 28 Anion Gap 4 BUN 12 Creatinine 0.83 Estim Creat Clear Calc 83 Estimated GFR > 60 Glucose 124 H POC Capillary Glucose Calcium 8.6 Total Bilirubin 0.4 AST 25 ALT 17 Alkaline Phosphatase 82 Total Protein 6.3 Albumin 3.4 L Quality VTE Prophylaxis VTE prophylaxis: pharmacologic ordered
[2025-09-15] MEDS: MICONAZOLE NITRATE 2% CREAM 30 GM TUBE 1 APPLIC TOPICAL ×2 (07:53→20:07)
[2025-09-15] MEDS: CITALOPRAM HYDROBROMIDE 20 MG TABLET 40 MG PO (08:51)
[2025-09-15] MEDS: FAMOTIDINE 20 MG TABLET 40 MG PO (08:51)
[2025-09-15] MEDS: NORTRIPTYLINE HCL 25 MG CAPSULE PO ×3 (08:51→17:15)
[2025-09-15] MEDS: ATORVASTATIN 40 MG TABLET PO (08:51)
[2025-09-15] MEDS: PRIMIDONE 250 MG TABLET PO ×2 (08:52→20:07)
[2025-09-15] MEDS: cefTRIAXone 1 GM in SODIUM CHLORIDE 0.9% IV 50 ML 100 ML IVPB (08:52)
[2025-09-15] MEDS: GABAPENTIN 400 MG CAPSULE 800 MG PO ×3 (08:56→20:09)
[2025-09-15] MEDS: PROMETHAZINE HCL 25 MG TABLET PO (09:44)
[2025-09-15] MEDS: ACETAMINOPHEN 325 MG TABLET 650 MG PO (09:44)
[2025-09-15 14:00] VITALS: BP 130/66; PULSE 78; RESP 18; TEMP 36.2; O2SAT 95
[2025-09-15] MEDS: RIVAROXABAN 20 MG TABLET PO (17:15)
[2025-09-15 19:29] VITALS: BP 142/61; PULSE 72; RESP 12; TEMP 36.3; O2SAT 95
[2025-09-15] MEDS: INSULIN GLARGINE (*BKC) 100 UNITS/ML 8 UNITS SUB-Q (20:09)
[2025-09-15 21:15] VITALS: PULSE 72; O2SAT 95
[2025-09-16 05:01] VITALS: BP 150/65; PULSE 69; RESP 12; TEMP 36.1; O2SAT 97
[2025-09-16 05:17] LABS: Hematocrit 50.4 % (37.0-47.0); Hemoglobin 15.9 g/dL (12.0-15.0); Immature Granulocyte Percent A 0.9 % (0-0.5); Immature Platelet Fraction Pct 2.4 % (0.9-11.2); Lymphocytes Absolute Auto 4.11 K/mm3 (0.9-3.2); Mean Corpuscular HGB Conc 31.5 g/dl (32-36); Mean Corpuscular Hemoglobin 28.8 pg (26-34); Mean Corpuscular Volume 91.3 fl (80-100); Nucleated Red Blood Cells Absolute Auto 0.000 K/mm3 (0.0-0.012); Nucleated Red Blood Cells Perc 0.0 % (0.0-0.2); Platelet Count Result 274 k/mm3 (150-375); Red Blood Count 5.52 M/mm3 (4.2-5.4); White Blood Count 10.7 K/mm3 (4.5-10.0)
[2025-09-16] MEDS: FAMOTIDINE 20 MG TABLET 40 MG PO (08:09)
[2025-09-16] MEDS: CITALOPRAM HYDROBROMIDE 20 MG TABLET 40 MG PO (08:10)
[2025-09-16] MEDS: NORTRIPTYLINE HCL 25 MG CAPSULE PO ×2 (08:10→12:16)
[2025-09-16] MEDS: cefTRIAXone 1 GM in SODIUM CHLORIDE 0.9% IV 50 ML 100 ML IVPB (08:10)
[2025-09-16] MEDS: PRIMIDONE 250 MG TABLET PO (08:10)
[2025-09-16] MEDS: ATORVASTATIN 40 MG TABLET PO (08:10)
[2025-09-16] MEDS: MICONAZOLE NITRATE 2% CREAM 30 GM TUBE 1 APPLIC TOPICAL (08:10)
[2025-09-16] MEDS: GABAPENTIN 400 MG CAPSULE 800 MG PO (08:12)
[2025-09-16 08:43] LABS: Alanine Aminotransferase 17 U/L (6-35); Albumin Level 3.6 g/dL (3.5-5.1); Alkaline Phosphatase 91 U/L (38-126); Anion Gap 5 mmol/L (4-12); Aspartate Amino Transferase 28 U/L (14-36); Bilirubin,Total 0.4 mg/dL (0.2-1.3); Blood Urea Nitrogen 14 mg/dL (7-17); Calcium 8.6 mg/dL (8.4-10.2); Carbon Dioxide 28 mmol/L (22-30); Chloride 103 mmol/L (98-107); Estimated CRCL calculation 83 ml/min; Estimated Glomerular Filt Rate > 60; Glucose 128 mg/dL (65-110); Potassium 4.1 mmol/L (3.4-5.0); Sodium 136 mmol/L (137-145); Total Protein 6.6 g/dL (6.3-8.2)
--- NOTE | 2025-09-16 10:59 | P.DS_ITS ---
DS: Admitting Diagnosis Discharge Date 09/16/2025 Admitting Diagnosis UTI, failure to thrive DS: Discharge Diagnosis Discharge Diagnosis (1) UTI (urinary tract infection): Qualifiers: Hematuria presence: without hematuria Urinary tract infection type: acute cystitis Qualified Code(s): N30.00 - Acute cystitis without hematuria Code(s): N39.0 - Urinary tract infection, site not specified Status: Acute Assessment and Plan: Patient presented here on 09/13 with generalized weakness, dysuria, and urinary frequency. UA consistent with UTI. No evidence of pyelonephritis or other acute intra-abdominal/pelvic process on CT of the abdomen/pelvis. * UC pending -gram-negative bacilli * previous micro reviewed. Patient grew E coli on 12/14/2024 that was intermediate to Unasyn and resistant to Cipro/Levaquin/Bactrim. Remain susceptible to ceftriaxone. * started on Ceftriaxone on 09/13 * IV fluids: 1L bolus * WBC decreasing, will continue abx, plan to switch to oral today (2) Failure to thrive: Qualifiers: Failure to thrive age range: in adult Qualified Code(s): R62.7 - Adult failure to thrive Status: Acute Assessment and Plan: Patient recently admitted here in June of 2025 for inability to care for herself. She was discharged to [facility], patient signed herself on XX due to XX. Returning today with generalized weakness and UTI. Now also reporting she feels she is unable to care for herself at home. * care coordination consulted for discharge planning/assisted placement * PT/OT eval for discharge planning * Pt reports that she currently feels comfortable living at home in terms of caring for herself with her HH aide visits * Spoke with patient today, is open to SNF * Will work with CC regarding placement upon discharge (3) Candidal skin infection: Code(s): B37.2 - Candidiasis of skin and nail Status: Acute Assessment and Plan: Patient has erythematous itchy rash to her bilateral breast folds, pannus, and gluteal cleft consistent with Derrek. Patient has been applying diaper rash at home to the sites without resolution. Has not been utilizing an antifungal. * miconazole cream * tolnaftate powder * wound consulted * Continue with above tx (4) T2DM (type 2 diabetes mellitus): Qualifiers: Diabetes mellitus manager intermediate insulin use: with manager intermediate use Code(s): E11.9 - Type 2 diabetes mellitus without complications Status: Chronic Assessment and Plan: History of type 2 diabetes on insulin. Initial glucose upon admission, 157. * hypoglycemia protocol * POC blood glucose ACHS * home medication: Continue glargine, pharmacist to adjust. Hold metformin. * correct regimen ordered - high dose TIDWM, based off BMI * A1C 6.7% on 06/22/2025 (5) Hypertension: Qualifiers: Hypertension type: unspecified Qualified Code(s): I10 - Essential (primary) hypertension Code(s): I10 - Essential (primary) hypertension Status: Chronic Assessment and Plan: * chronic, currently 160/91. * continue home medications: Lisinopril * monitor * 151/72 (6) Atrial fibrillation: Qualifiers: Atrial fibrillation type: unspecified chronic Qualified Code(s): I48.20 - Chronic atrial fibrillation, unspecified Code(s): I48.91 - Unspecified atrial fibrillation Status: Chronic Assessment and Plan: Patient has history of atrial fibrillation on anticoagulation. Currently rate controlled. * continue anticoagulation: Xarelto (7) Bipolar disorder: Qualifiers: Active/Remission status: remission status unspecified Qualified Code(s): F31.9 - Bipolar disorder, unspecified Code(s): F31.9 - Bipolar disorder, unspecified Status: Chronic Assessment and Plan: * continue Celexa (8) COPD (chronic obstructive pulmonary disease): Qualifiers: COPD type: unspecified COPD Qualified Code(s): J44.9 - Chronic obstructive pulmonary disease, unspecified Code(s): J44.9 - Chronic obstructive pulmonary disease, unspecified Status: Chronic Assessment and Plan: * mild intermittent expiratory wheeze not well appreciated on exam line, no increased sputum production worrisome for exacerbation. * DuoNeb p.r.n. * Continue Symbicort * Mild intermittent expiratory wheezes to RUL and RLL, reminded her to ask for her inhaler to help with this Plan Diet: Heart healthy GI Prophylaxis: N/a DVT Prophylaxis: Xarelto IV fluids: 1 L bolus Lines/Tubes: Peripheral IV Code Status: Full code Pending UTI management as well as CC / therapy recs DS: Summary Hospital Course Reason for hospitalization: Generalized Weakness, Dysuria Hospital Course: Per HPI: 65 y/o F with PMH of RLS, heart failure, anxiety, depression, bipolar disorder, hyperlipidemia, COPD, hypertension, and atrial fibrillation presents here with generalized weakness and dysuria. The patient presents here from home via EMS on 09/13 for further evaluation of generalized weakness and dysuria. She reports the generalized weakness has been ongoing for the past 2 weeks. Dysuria started around 2 weeks ago as well. It is accompanied by urinary frequency. She denies accompanying difficulty urinating, abdominal pain, shortness of breath, chest pain, nausea, vomiting, diarrhea, or focal weakness/focal numbness. She also notes she has had a Derrek rash under her bilateral breast, lower abdomen, and her gluteal cleft. She has been utilizing diaper rash/cream at home, however has not utilized any antifungal based products. Rashes have been present for a long time, endorses they have been there for more than a year. She is also reporting as she feels she is on able to take care of herself at home. Patient was recently admitted here on 06/21-06/22 for inability to care for herself at home. She was accepted to [facility], however she signed herself out around 2 weeks ago citing she just wanted to go home as her reason. Initial VS at presentation: 98.6? F, HR 89, R 16, 160/91, and 98% on RA. ED workup showed: WBC 11.4, hemoglobin 16.0 (at baseline), no significant electrolyte derangements, creatinine 0.82 and GFR >60, glucose 157, UA consistent with UTI. CT of the abdomen/pelvis showed no acute intra- abdominal/pelvic process. Hospital course: Urine cultures were obtained which grew Proteus mirabilis. Susceptible to Augmentin. Miconazole cream, tolnaftate powder was orderd and wound care was consulted for an erythematous itchy rash to the bilateral breast folds, pain is, in gluteal cleft consistent with candidal skin infection. After 1 day this improved greatly per the patient. Wound care consulted -per their assessment, patient has chronic venous insufficiency with secondary lymphedema with dependent rubor, 4+ edema to legs and feet, the varicose veins, no warmth present, no open wounds, no further wound care needed at this time. PT/OT was consulted and recommended continued rehab care through SNF. Patient vehemently declined placement to a rehab facility and only wanted to be discharged home. She was eventually agreeable to home health services being an option. Upon admission, she did have slight leukocytosis with a WBC 11.4 but this decreased throughout hospitalization. Vitals remained stable. No major electrolyte abnormalities throughout visit as well. Blood cultures were obtained and preliminary result was negative for any growth. She has been A&O x4 throughout visit. Patient is agreeable to discharge at this time. She is otherwise hemodynamically stable and we will plan for discharge home with home health services at this time. Status at Discharge Functional status at discharge: uses cane/walker Overall status at discharge: patient is progressing back to baseline Time Spent with Patient Time attestation: Total time spent providing and/or coordinating discharge services:32 Exam Const: General: comfortable and no acute distress Other: , female, obese body habitus high, chronically ill-appearing HENMT: Face/Nose/Sinus: Normal nares present Mouth: Yes moist mucous membranes Other: Edentulous Eyes: General: appearance normal, both eyes and all related structures Sclera: sclerae normal Pupils: Equal, round and reactive pupils present EOM: EOMs intact bilaterally Resp: Effort & Inspection: normal respiratory effort Other: Expiratory intermittent wheezing to RUL an RLL Cardio: Rate: regular rate Rhythm: regular rhythm Other: S1-S2 present without murmur, rub, ectopy GI: Other: Abdomen soft, nondistended, nontender. Normoactive bowel sounds in all quadrants. Skin: Wounds: no wounds Other: Mild pruritic rash under R breast and with some to gluteal cleft consistent with derrek, per pt, has reduced significantly since admission Neuro: Cranial nerves: Yes Equal, round and reactive pupils present Speech: normal speech Sensory Exam: normal sensation Other: Generalized weakness, A&O x4 Extrem: Other: +1 nonpitting edema to bilateral lower e xtremities. Psych: Mental Status: mental status grossly normal Affect: normal affect Other: Fair insight and judgment. DS: Data Data Completed and Pending Labs on day of discharge: Labs from last 24 hours 09/16/25 09/16/25 09/16/25 07:52 07:46 04:54 WBC 10.7 H RBC 5.52 H Hgb 15.9 H Hct 50.4 H MCV 91.3 MCH 28.8 MCHC 31.5 L RDW 16.3 H Plt Count 274 MPV 10.8 H Immature Gran % (Auto) 0.9 H Neut % (Auto) 51.9 Lymph % (Auto) 38.6 [place] % (Auto) 5.9 Eos % (Auto) 2.3 Baso % (Auto) 0.4 Lymph # (Auto) 4.11 H [place] # (Auto) 0.6 Eos # (Auto) 0.2 Baso # (Auto) 0.0 Abs Immat Gran (auto) 0.10 H Absolute Neuts (auto) 5.5 Absolute Nucleated RBC 0.000 Nucleated RBC % 0.0 % Immature Plt Fraction 2.4 Sodium 136 L Potassium 4.1 Chloride 103 Carbon Dioxide 28 Anion Gap 5 BUN 14 Creatinine 0.82 Estim Creat Clear Calc 83 Estimated GFR > 60 Glucose 128 H POC Capillary Glucose 137 H Calcium 8.6 Total Bilirubin 0.4 AST 28 ALT 17 Alkaline Phosphatase 91 Total Protein 6.6 Albumin 3.6 09/15/25 09/15/25 09/15/25 19:28 17:06 11:18 WBC RBC Hgb Hct MCV MCH MCHC RDW Plt Count MPV Immature Gran % (Auto) Neut % (Auto) Lymph % (Auto) [place] % (Auto) Eos % (Auto) Baso % (Auto) Lymph # (Auto) [place] # (Auto) Eos # (Auto) Baso # (Auto) Abs Immat Gran (auto) Absolute Neuts (auto) Absolute Nucleated RBC Nucleated RBC % % Immature Plt Fraction Sodium Potassium Chloride Carbon Dioxide Anion Gap BUN Creatinine Estim Creat Clear Calc Estimated GFR Glucose POC Capillary Glucose 183 H 157 H 163 H Calcium Total Bilirubin AST ALT Alkaline Phosphatase Total Protein Albumin Preliminary micro results at discharge 09/13/25 16:01 Blood Culture - Preliminary Blood 09/13/25 16:01 Blood Culture - Preliminary Blood Discharge Plan Discharge Attending physician on discharge: Sylvester Toribio Consulting providers: Sarina Bone; Raj Belle Discharging Clinician: Raj Belle Anticipated Discharge Date/Time: 09/16/25 10:51 Patient Disposition: Home with Home Health Service Activity: as tolerated Diet: regular Discharge Instructions: Discharge disposition: Home with home health services Take medications as prescribed. You will be prescribed Augmentin for the next 5 days. Take this twice daily for the entire course. Monitor blood pressures Take caution while standing, rising, or moving Change positions slowly taking a break between each position change If you standing feel dizzy sit back down and take a break Encouraged to continue with yearly vaccinations Return to the emergency department if you develop sudden shortness of breath, chest pain, nausea, vomiting, upset stomach or intractable diarrhea Return to the emergency department if you develop fever greater than 101.5 Follow-up with the primary care physician within 1-[address] [facility] will follow up to schedule initial assessment for Home Health Services for PT P: [phone] Thank you for choosing [facility] for your healthcare needs Patient Instructions: Antibiotic Form, Pain Management (DC), Blood Thinners (GEN) Patient Language: Urdu Stand Alone Forms: General Discharge Information Follow-up/Referrals: Gurvinder Renteria MD [Primary Care Provider, Family Practice] Discharge Medications: New amoxicillin-pot clavulanate 875-125 mg tablet 1 tablet PO Q12H Qty: 10 0RF Continued citalopram 40 mg Tablet 40 mg PO DAILY famotidine 40 mg Tablet 40 mg PO DAILY ropinirole 3 mg Tablet 3 mg PO HS primidone 250 mg Tablet 250 mg PO BID gabapentin 800 mg Tablet 800 mg PO TID Rx Instructions: takes at 09,1400,2100 lisinopril 30 mg Tablet 30 mg PO DAILY oxybutynin chloride 5 mg Tablet 5 mg PO HS insulin glargine [Basaglar KwikPen U-100 Insulin] 100 unit/mL (3 mL) insulin pen 10 unit SUBCUT QHS Qty: 15 0RF polyethylene glycol 3350 [Miralax] 17 gram/dose powder 17 g PO BID Qty: 238 0RF Rx Instructions: Use 2 times a day until you have a bowel movement. Then take as needed. atorvastatin 40 mg tablet 40 mg PO DAILY nortriptyline 25 mg capsule 25 mg PO TID metformin 500 mg Tablet 500 mg PO BID tolnaftate 1 % powder 1 applic topical Q12HR PRN (Reason: Rash) Rx Instructions: Apply to groin folds until clear then use as needed. docusate sodium 100 mg capsule 100 mg PO PRN PRN (Reason: Constipation) budesonide-formoterol [Symbicort] 160-4.5 mcg/actuation HFA aerosol inhaler 1 inh INHALATION DAILY PRN (Reason: Shortness Of Breath) Xarelto 20 mg Tablet 20 mg PO DAILY@1700 Qty: 60 0RF (DME) FreeStyle Fredi 3 [place] Misc See Rx Instructions .Route Qty: 1 0RF Rx Instructions: use to monitor blood sugars (DME) FreeStyle Fredi 3 Plus Sensor Device See Rx Instructions .Route Qty: 2 3RF Rx Instructions: change every 15 days Date of admission: 09/14/25 08:18 Primary Care Provider: Gurvinder Renteria Admitting Provider: Asuncion Bustos Attending physician on admission: Asuncion Bustos Condition: Stable Quality VTE Prophylaxis VTE prophylaxis: pharmacologic ordered
--- NOTE | 2025-09-16 11:17 | PCOTNOTE ---
Attempted to see Patient at this time. Patient in bed, declines getting out of bed, states she is being discharged today home with Home Health and has assistance if needed and a youth care professional. Patient declined therapy services.
== END 2025-09-16 16:10 | disposition home health service (06) | DRG 463 ==
LOC: ANHED 13:32 → ANH2MED 16:53
PROVIDERS: Student in an Organized Health Care Education/Training Program; Admitting Provider Internal Medicine; Emergency Provider Emergency Medicine; PCP Family Medicine; Visit Provider Physician Assistant
DX: N39.0 Urinary tract infection, site not specified (principal); B96.4 Proteus (mirabilis) (morganii) as the cause of diseases classified elsewhere; E66.01 Morbid (severe) obesity due to excess calories; I87.2 Venous insufficiency (chronic) (peripheral); I89.0 Lymphedema, not elsewhere classified; I48.20 Chronic atrial fibrillation, unspecified; I11.0 Hypertensive heart disease with heart failure; I50.9 Heart failure, unspecified; B37.2 Candidiasis of skin and nail; J44.9 Chronic obstructive pulmonary disease, unspecified; E78.5 Hyperlipidemia, unspecified; F31.9 Bipolar disorder, unspecified; E11.65 Type 2 diabetes mellitus with hyperglycemia; E11.40 Type 2 diabetes mellitus with diabetic neuropathy, unspecified; M19.90 Unspecified osteoarthritis, unspecified site; G25.81 Restless legs syndrome; F41.9 Anxiety disorder, unspecified; M17.9 Osteoarthritis of knee, unspecified; R62.7 Adult failure to thrive; Z74.1 Need for assistance with personal care; F17.210 Nicotine dependence, cigarettes, uncomplicated; F12.90 Cannabis use, unspecified, uncomplicated; Z91.81 History of falling; Z68.43 Body mass index [BMI] 50.0-59.9, adult; Z79.84 Long term (current) use of oral hypoglycemic drugs; Z79.4 Long term (current) use of insulin; Z95.5 Presence of coronary angioplasty implant and graft; Z90.49 Acquired absence of other specified parts of digestive tract; Z74.01 Bed confinement status
CPT/HCPCS: 36415; 74177; 80048; 80053; 81001; 82948; 83605; 83690; 85025; 85055; 86140; 87040; 87086; 87186; 96365; 97166; 99285; A9270; G0378; G0379; J0696; J1815; J7120; Q9967

== ENCOUNTER 2025-09-22 08:02 | Emergency (ER) | payer OTHER, SELFPAY ==
--- OUTSIDE RECORDS SUMMARY | 2009-09-19 18:00 | XMS_ITS | Continuity of Care Document ---
Author Organization Shanda Hinson MD [facility] Address [address] [facility] [place] [address] Phone Care Team Providers Care Community Coordinator For [employer] Name Role Phone Brenda SCHMITZ, Nohemi Unavailable Unavailable Procedures Procedure Date Record Preparation Fee Advance Directives Directive Yes / No Effective Date File Name No Information Encounters Encounter Description Practice Location Reason(s) For Visit Diagnoses Date Provider Providers Copied on Encounter Shanda Hinson MD [facility] [address] [facility] [id number] [place] tel:[phone] [facility] No Information Brenda [place]. [address] [place], [address], [place]. tel:[phone] Referring Provider: [place], [address] Traci Mcgee MD, . tel:[phone] Family History Family Member Type Diagnosis Age At Onset No Information Payers Payer name Insurance type Covered alliance party ID Authoriza tion(s) No Information Social History Type Description Quantity Date Captured Comments Sex Female Smoking Status No Information Chief Complaint And Reason For Visit No Information Reason For Referral Reason For Referral No Information History Of Present Illness Encounter Date Complaint History Of Prese nt Illness No Information Functional Status Date Functional Assessmen t No Information Instructions Date Instruction Additional Infor mation No Information Assessments Type Assessment Date No Information Patient Care Teams Name Effective Dates (start - stop) Status Members No Information
[2025-09-22] VITALS (8 sets, daily range): BP systolic 115–182; BP diastolic 51–85; PULSE 70–82; RESP 12–20; TEMP 36.5–36.8; O2SAT 97–100
--- NOTE | ~2025-09-22 | XR_ITS ---
EXAMINATION: XR chest 1V portable COMPARISON: No comparisons available. HISTORY: coarse breath sounds FINDINGS: The lungs are clear, no effusion. No pneumothorax. Heart is normal size. Mediastinal and hilar contours are within normal limits. Bony thorax no acute abnormality. Miscellaneous: None Impression: No acute cardiopulmonary abnormality. Reviewed, dictated and finalized at location [facility] Impression: No acute cardiopulmonary abnormality.
[2025-09-22 09:37] LABS: Hematocrit 49.8 % (37.0-47.0); Hemoglobin 16.0 g/dL (12.0-15.0); Immature Granulocyte Percent A 1.1 % (0-0.5); Lymphocytes Absolute Auto 2.82 K/mm3 (0.9-3.2); Mean Corpuscular HGB Conc 32.1 g/dl (32-36); Mean Corpuscular Hemoglobin 29.0 pg (26-34); Mean Corpuscular Volume 90.2 fl (80-100); Nucleated Red Blood Cells Absolute Auto 0.000 K/mm3 (0.0-0.012); Nucleated Red Blood Cells Perc 0.0 % (0.0-0.2); Platelet Count Result 270 k/mm3 (150-375); Red Blood Count 5.52 M/mm3 (4.2-5.4); White Blood Count 10.4 K/mm3 (4.5-10.0)
--- NOTE | 2025-09-22 09:40 | ED.NAVMDI ---
HPI - Nausea/Vomiting/Diarrhea General Chief complaint: Nausea/Vomiting/Diarrhea Stated complaint: N/V/D Time Seen by Provider: 09/22/25 09:13 Source: patient and RN notes reviewed Mode of arrival: EMS History of Present Illness HPI Narrative: Patient presents with report of nausea non bloody vomiting and nonbloody diarrhea. States symptoms for 2 weeks. No abdominal pain. Bedbound at baseline and obese. No recent travel. States she had been on antibiotics recently for a UTI that was diagnosed here. No sick contacts though lives with and roommate. Not short of breath.Trying to drink; decresed appetite. Related Data Home Medications ?Medication ?Instructions ?Recorded ?Confirmed ?Last Taken ?Type citalopram 40 mg tablet 40 mg PO DAILY 08/09/23 09/13/25 09/12/25 History famotidine 40 mg tablet 40 mg PO DAILY 08/09/23 09/13/25 09/12/25 History gabapentin 800 mg tablet 800 mg PO TID 08/09/23 09/13/25 09/12/25 History lisinopril 30 mg tablet 30 mg PO DAILY 08/09/23 09/13/25 09/12/25 History oxybutynin chloride 5 mg tablet 5 mg PO HS 08/09/23 09/13/25 12/13/24 History primidone 250 mg tablet 250 mg PO BID 08/09/23 09/13/25 09/12/25 History ropinirole 3 mg tablet 3 mg PO HS 08/09/23 09/13/25 09/12/25 History metformin 500 mg tablet 500 mg PO BID 12/15/23 09/13/25 09/12/25 History tolnaftate 1 % topical powder 1 applic topical Q12HR PRN Rash 12/15/23 09/13/25 12/13/24 History budesonide-formoterol HFA 160 1 inh inhalation DAILY PRN 03/10/24 09/13/25 12/13/24 History mcg-4.5 mcg/actuation aerosol Shortness Of Breath inhaler (Symbicort) docusate sodium 100 mg capsule 100 mg PO PRN PRN Constipation 03/10/24 09/13/25 12/13/24 History atorvastatin 40 mg tablet 40 mg PO DAILY 09/13/25 09/13/25 09/12/25 History nortriptyline 25 mg capsule 25 mg PO TID 09/13/25 09/13/25 09/12/25 History Allergies Allergy/AdvReac Type Severity Reaction Status Date / Time morphine Allergy Severe Swelling Verified 09/22/25 09:07 of Lip/Tongue/Throat PMFSH Past Medical History Medical History Morbid obesity Bedbound Restless leg syndrome Neuropathy Asthma Heart failure Anxiety and depression Suicide attempt x3, last attempt in Bipolar disorder Arthritis HLD (hyperlipidemia) Migraine COPD (chronic obstructive pulmonary disease) Hypertension Atrial fibrillation with RVR Tobacco abuse Degenerative joint disease of knee Diabetes mellitus with hyperglycemia Cellulitis of groin necrotizing fasciitis Frequent falls MINA (acute kidney injury) Cellulitis LL2006 Surgical History Surgical History History of bladder surgery History of appendectomy 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 History of cholecystectomy History of heart artery stent Family History Family History Father Acute myocardial infarction Hypertension Grandparent Chronic obstructive pulmonary disease Diabetes mellitus Mother Congestive heart failure Diabetes mellitus Hypertension Other Leukemia Social History Social History Smoking packs per day: 0.5 Smoking cigarettes per day: 10.0 Years smoked: 47 Smoking pack-years: 23.50 Tobacco type: cigarettes Second hand tobacco smoke exposure: Yes Alcohol intake: current Drinks per week: 1 Substance use: current Substance use type: marijuana Other substance usage details: alcohol couple times/year, currently uses CBD gummies and smokes marijuana Do You Feel Safe in your Home?: Yes Lack of Transportation: No Lack of Food: Sometimes True Current Housing: I Have Housing Concerned About Future Housing: No Difficulty Paying Gas/Electric Bills: YES Difficulty Paying for Meds: YES Currently Unemployed: No Education: High School Diploma/GED Difficulty w/ Childcare or Family Care: No Living arrangements: with family Additional living arrangements comments: and a roommate Spiritual care concerns: No Exam Narrative: GENERAL: Well-appearing, well-nourished, and in no acute distress. HEAD: Normocephalic, atraumatic. EYES: Non injected, non icteric ENT: Nares clear, no rhinorrhea or epistaxis. Gross auditory acuity intact. NECK: Supple. No meningismus. CHEST: Speaking in full sentences. No respiratory distress. HEART: Regular rate and rhythm. . ABDOMEN: Morbidly obese but Soft, nondistended. No rigidity or guarding. Not peritoneal EXTREMITIES: Able to move extremities x4 SKIN: Warm, dry, no rash. NEURO: No focal deficits. Alert and oriented. Answering questions. Following commands. Normal speech without aphasia or dysarthria. PSYCH: Normal mood and affect. Course Vital Signs Vital signs: Vital Signs Temperature 97.7 F 09/22/25 08:07 Pulse Rate 80 09/22/25 08:07 Respiratory Rate 20 09/22/25 08:07 Blood Pressure 182/77 H 09/22/25 08:07 Pulse Oximetry 98 09/22/25 08:07 Temperature 98.3 F 09/22/25 13:00 Pulse Rate 82 09/22/25 13:00 Respiratory Rate 16 09/22/25 13:00 Blood Pressure 137/79 09/22/25 13:00 Pulse Oximetry 97 09/22/25 13:00 MDM - Nausea/Vomiting/Diarrhea MDM Narrative Medical decision making narrative: Patient presents with nausea and nonbloody emesis and nonbloody diarrhea x2 weeks. In the emergency department she is afebrile with vital signs notable for hypertension. Mild leukocytosis. Elevated hemoglobin hematocrit. These are possibly due to hemoconcentration although the elevated hemoglobin and hematocrit have previously been appreciated. Normal lactic acid. Hyperglycemia without anion gap acidosis. 3+ glucosuria but otherwise urine without signs of infection. Patient reassessed at 12:10 p.m.. She reports still having nausea. She has not had any subsequent emesis or diarrhea while in the emergency department. Additional medication ordered. Although patient not having any abdominal pain, per review of the EMR she does use marijuana regularly and given this will trial combination of diphenhydramine and Haldol for her persistent nausea in the hopes of her experiencing relief from this. Viral swab negative. Has not been able to give a stool sample thus even less likely that this represents C diff. Patient reassessed at 1250 pm and she notes she is feeling much better. Stable for discharge. DIscussed the importance of good glycemic control. She states her symptoms have been going on for 2 weeks thus on the borderline between diagnosis acute versus chronic diarrhea. Discussed that in general though her symptoms with combination nausea vomiting and diarrhea represent gastroenteritis which is typically viral although negative viral swab. To be discharged with Rx for Zofran. EMS transportation is being arranged as patient discharged but approximately 1 hour after receiving her medications, she notes she feels restless , agitated, shaky, wants to get out of bed. I did go to bedside and assess patient. We discussed that this might unfortunately be a side effect of the Haldol although this is a bit unexpected as she was given a 2.5mg dose with 25mg Benadryl with this which is a bit unexpected for this significant effect based on dose per weight in addition to somewhat delayed presentation. Verbal reassurance given. She is given a cool rag and does improve before EMS arrival. Differential Diagnosis Differential diagnosis: Likely food poisoning (less likely given timing), gastroenteritis, clostridium difficile infection, drug-induced nausea and vomiting and dehydration Lab Data Attestation: I reviewed the patient's lab results. 09/22/25 09:25 09/22/25 08:36 Labs: Lab Results 09/22/25 09/22/25 09/22/25 Range/Units 08:36 09:25 10:39 WBC 10.4 H (4.5-10.0) K/mm3 RBC 5.52 H (4.2-5.4) M/mm3 Hgb 16.0 H (12.0-15.0) g/dL Hct 49.8 H (37.0-47.0) % MCV 90.2 (80-100) fl MCH 29.0 (26-34) pg MCHC 32.1 (32-36) g/dl RDW 16.4 H (11.5-14.5) % Plt Count 270 (150-375) k/mm3 MPV 9.5 (7.4-10.4) fl Immature Gran % (Auto) 1.1 H (0-0.5) % Neut % (Auto) 63.2 (45.5-73.1) % Lymph % (Auto) 27.2 (18.3-44.2) % Warren % (Auto) 6.0 (2.6-8.5) % Eos % (Auto) 1.8 (0-4.4) % Baso % (Auto) 0.7 (0.2-1.2) % Lymph # (Auto) 2.82 (0.9-3.2) K/mm3 Warren # (Auto) 0.6 (0.1-0.6) K/mm3 Eos # (Auto) 0.2 (0-0.3) K/mm3 Baso # (Auto) 0.1 (0.0-0.1) K/mm3 Abs Immat Gran (auto) 0.11 H (0.00-0.031) K/mm3 Absolute Neuts (auto) 6.6 (1.3-6.7) K/mm3 Absolute Nucleated RBC 0.000 (0.0-0.012) K/mm3 Nucleated RBC % 0.0 (0.0-0.2) % Sodium 139 (137-145) mmol/L Potassium 4.3 (3.4-5.0) mmol/L Chloride 107 (98-107) mmol/L Carbon Dioxide 24 (22-30) mmol/L Anion Gap 8 (4-12) mmol/L BUN 12 (7-17) mg/dL Creatinine 0.78 (0.7-1.0) mg/dL Estim Creat Clear Calc 92 ml/min Estimated GFR > 60 (59 - ) Glucose 183 H (65-110) mg/dL Lactic Acid 1.5 (0.7-2.0) mmol/L Calcium 9.1 (8.4-10.2) mg/dL Magnesium 2.0 (1.6-2.3) mg/dL Total Bilirubin 0.6 (0.2-1.3) mg/dL AST 24 (14-36) U/L ALT 17 (6-35) U/L Alkaline Phosphatase 92 (38-126) U/L Total Protein 7.8 (6.3-8.2) g/dL Albumin 4.3 (3.5-5.1) g/dL Lipase 43 (23-300) U/L Urine Color Yellow (Yellow) Urine Appearance Clear (Clear) Urine pH 6.5 (5.0-9.0) Ur Specific Arbuckle 1.014 (1.001-1.035) Urine Protein Negative (Negative) mg/dL Urine Glucose (UA) 3+ H (Negative) mg/dL Urine Ketones Negative (Negative) mg/dL Ur Blood (Man) Negative (Negative) Urine Nitrate Negative (Negative) Urine Bilirubin Negative (Negative) Urine Urobilinogen 0.2 (<2.0) mg/dL Leukocyte Esterase Rfl Negative (Negative) RALPH/UL Influenza A (RT-PCR) (Negative) Influenza B (RT-PCR) (Negative) RSV (RT-PCR) (Negative) SARS-CoV-2 RNA (RT-PCR) (Negative) 09/22/25 Range/Units 11:16 WBC (4.5-10.0) K/mm3 RBC (4.2-5.4) M/mm3 Hgb (12.0-15.0) g/dL Hct (37.0-47.0) % MCV (80-100) fl MCH (26-34) pg MCHC (32-36) g/dl RDW (11.5-14.5) % Plt Count (150-375) k/mm3 MPV (7.4-10.4) fl Immature Gran % (Auto) (0-0.5) % Neut % (Auto) (45.5-73.1) % Lymph % (Auto) (18.3-44.2) % Warren % (Auto) (2.6-8.5) % Eos % (Auto) (0-4.4) % Baso % (Auto) (0.2-1.2) % Lymph # (Auto) (0.9-3.2) K/mm3 Warren # (Auto) (0.1-0.6) K/mm3 Eos # (Auto) (0-0.3) K/mm3 Baso # (Auto) (0.0-0.1) K/mm3 Abs Immat Gran (auto) (0.00-0.031) K/mm3 Absolute Neuts (auto) (1.3-6.7) K/mm3 Absolute Nucleated RBC (0.0-0.012) K/mm3 Nucleated RBC % (0.0-0.2) % Sodium (137-145) mmol/L Potassium (3.4-5.0) mmol/L Chloride (98-107) mmol/L Carbon Dioxide (22-30) mmol/L Anion Gap (4-12) mmol/L BUN (7-17) mg/dL Creatinine (0.7-1.0) mg/dL Estim Creat Clear Calc ml/min Estimated GFR (59 - ) Glucose (65-110) mg/dL Lactic Acid (0.7-2.0) mmol/L Calcium (8.4-10.2) mg/dL Magnesium (1.6-2.3) mg/dL Total Bilirubin (0.2-1.3) mg/dL AST (14-36) U/L ALT (6-35) U/L Alkaline Phosphatase (38-126) U/L Total Protein (6.3-8.2) g/dL Albumin (3.5-5.1) g/dL Lipase (23-300) U/L Urine Color (Yellow) Urine Appearance (Clear) Urine pH (5.0-9.0) Ur Specific Arbuckle (1.001-1.035) Urine Protein (Negative) mg/dL Urine Glucose (UA) (Negative) mg/dL Urine Ketones (Negative) mg/dL Ur Blood (Man) (Negative) Urine Nitrate (Negative) Urine Bilirubin (Negative) Urine Urobilinogen (<2.0) mg/dL Leukocyte Esterase Rfl (Negative) RALPH/UL Influenza A (RT-PCR) Negative (Negative) Influenza B (RT-PCR) Negative (Negative) RSV (RT-PCR) Negative (Negative) SARS-CoV-2 RNA (RT-PCR) Negative (Negative) Imaging Data Radiologist's impression: Impression: No acute cardiopulmonary abnormality. Discharge Plan Discharge Clinical Impression: Gastroenteritis, Hyperglycemia due to diabetes mellitus, Glucosuria Patient Disposition: Home Condition: Stable Instructions: Antibiotic Form, Gastroenteritis (ED), Managing Diabetes During Sick Days (ED), Diabetic Hyperglycemia (ED) Additional Instructions: You are being prescribed short course of oral disintegrating tablets of ondansetron/Zofran which may help with nausea and vomiting. Rest and maintain your hydration. Follow-up with primary care physician. Return to the emergency department any new or worsening symptoms. It is important that you maintain good diabetic control even when your sick so continue taking your medications as prescribed. Patient Language: Upper Sorbian Prescriptions: New ondansetron 4 mg tablet,disintegrating 4 mg PO Q8H PRN (Reason: nausea and vomiting) Qty: 7 0RF No Action citalopram 40 mg Tablet 40 mg PO DAILY famotidine 40 mg Tablet 40 mg PO DAILY ropinirole 3 mg Tablet 3 mg PO HS primidone 250 mg Tablet 250 mg PO BID gabapentin 800 mg Tablet 800 mg PO TID Rx Instructions: takes at 09,1400,2100 lisinopril 30 mg Tablet 30 mg PO DAILY oxybutynin chloride 5 mg Tablet 5 mg PO HS insulin glargine [Basaglar KwikPen U-100 Insulin] 100 unit/mL (3 mL) insulin pen 10 unit SUBCUT QHS Qty: 15 0RF polyethylene glycol 3350 [Miralax] 17 gram/dose powder 17 g PO BID Qty: 238 0RF Rx Instructions: Use 2 times a day until you have a bowel movement. Then take as needed. atorvastatin 40 mg tablet 40 mg PO DAILY nortriptyline 25 mg capsule 25 mg PO TID amoxicillin-pot clavulanate 875-125 mg tablet 1 tablet PO Q12H Qty: 10 0RF metformin 500 mg Tablet 500 mg PO BID tolnaftate 1 % powder 1 applic topical Q12HR PRN (Reason: Rash) Rx Instructions: Apply to groin folds until clear then use as needed. docusate sodium 100 mg capsule 100 mg PO PRN PRN (Reason: Constipation) budesonide-formoterol [Symbicort] 160-4.5 mcg/actuation HFA aerosol inhaler 1 inh INHALATION DAILY PRN (Reason: Shortness Of Breath) Xarelto 20 mg Tablet 20 mg PO DAILY@1700 Qty: 60 0RF (DME) FreeStyle Fredi 3 [place] Misc See Rx Instructions .Route Qty: 1 0RF Rx Instructions: use to monitor blood sugars (DME) FreeStyle Fredi 3 Plus Sensor Device See Rx Instructions .Route Qty: 2 3RF Rx Instructions: change every 15 days Follow-up/Referrals: Gurvinder Renteria MD [Primary Care Provider, Family Practice] Time of Disposition: 13:01
[2025-09-22 09:56] LABS: Alanine Aminotransferase 17 U/L (6-35); Albumin Level 4.3 g/dL (3.5-5.1); Alkaline Phosphatase 92 U/L (38-126); Anion Gap 8 mmol/L (4-12); Aspartate Amino Transferase 24 U/L (14-36); Bilirubin,Total 0.6 mg/dL (0.2-1.3); Blood Urea Nitrogen 12 mg/dL (7-17); Calcium 9.1 mg/dL (8.4-10.2); Carbon Dioxide 24 mmol/L (22-30); Chloride 107 mmol/L (98-107); Estimated CRCL calculation 92 ml/min; Estimated Glomerular Filt Rate > 60; Glucose 183 mg/dL (65-110); Lipase 43 U/L (23-300); Potassium 4.3 mmol/L (3.4-5.0); Sodium 139 mmol/L (137-145); Total Protein 7.8 g/dL (6.3-8.2)
[2025-09-22] MEDS: IPRATROPIUM 0.5 MG/ALBUTEROL SULFATE 2.5 MG (BASE) AMPUL.NEB 3 ML INHALATION (10:02)
[2025-09-22] MEDS: SODIUM CHLORIDE 0.9% IV 1,000 ML 999 ML IV CONT (10:03)
[2025-09-22 10:22] LABS: Magnesium 2.0 mg/dL (1.6-2.3)
[2025-09-22 11:01] LABS: Add Urine Microscopic? NO; Appearance Urine Clear (Clear); Glucose Urine UA 3+ mg/dL (Negative); Leukocyte Esterase Ur Negative LEU/UL (Negative); Nitrate Urine Negative (Negative); Specific Grav Ur 1.014 (1.001-1.035)
[2025-09-22] MEDS: ONDANSETRON INJ 4 MG/2 ML VIAL IV PUSH (11:21)
[2025-09-22 11:57] LABS: Influenza A QL RT-PCR Negative (Negative); Influenza B QL RT-PCR Negative (Negative); RSV RNA, RT-PCR Negative (Negative); SARS-CoV-2 RNA PCR Negative (Negative)
[2025-09-22] MEDS: HALOPERIDOL LACTATE 5 MG/ML VIAL 2.5 MG IV PUSH (12:31)
--- OUTSIDE RECORDS SUMMARY | 2025-09-22 18:03 | XMS_ITS | Encounter Summary ---
Author Organization [facility] Address [address] [place] [address] Care Team Providers Care Packer Operator Automatic Name Role Phone Unavailable Primary Care Provider Unavailabl e Encounter Details Date Type Department Care Team (Late st Contact Info) Description 07/12/2021 Lab Requisition [facility] Services [address] [place] [address] [place] [address] [place] [address] Social History Tobacco Use Types [...] - 145 mmol/L 07/12/2021 11:37 AM CDT [facility]ORAT[facility] SERVICES - [facility] POTASSIUM 4.2 3.4 - 5.1 mmol/L [facility] 98 - 107 mmol/L 07/12/2021 11:37 AM [facility] CO2 22 22 - 29 mmol/L 07/12/2021 11:37 AM [facility] CALCIUM 9.3 8.6 - 10.4 mg/dL 07/12/2021 11:37 AM [facility] BUN 20 6 - 20 mg/dL 07/12/2021 11:37 AM [facility] CREATININE 1.26(H) 0.51 - 0.95 mg/dL 07/12/2021 11:37 AM [facility] GLUCOSE 121(H) 74 - 99 mg/dL 07/12/2021 11:37 AM [facility] TOTAL PROTEIN 6.9 6.3 - 8.7 g/dL 07/12/2021 11:37 AM [facility] ALBUMIN 3.3(L) 3.5 - 5.2 g/dL 07/12/2021 11:37 AM [facility] BILIRUBIN TOTAL 0.2 0.2 - 1.1 mg/dL 07/12/2021 11:37 AM [facility] ALKALINE PHOSPHATASE 101 40 - 150 U/L 07/12/2021 11:37 AM [facility] AST 17 0 - 33 U/L 07/12/2021 11:37 AM [facility] ALT 12 0 - 33 U/L 07/12/2021 11:37 AM [facility] GFR 43 mL/min/1.7 3 sq meter 07/12/2021 11:37 AM [facility] Comment: eGFR has not been validated for [...] 3 sq meter 07/12/2021 11:37 AM CDT [facility] LABORATORY [facility] ANION GAP 14 8 - 16 mmol/L 07/12/2021 11:37 AM CDT [facility] LABORATORY [facility] Blood Collection / Unknown 07/12/2021 5:00 AM CDT 07/12/2021 11:05 AM CDT us Nargis Guy MD CHEMISTRY ORDERABLES Final Resul t [facility] [employer] [facility] CLIA# [id number] [place] [address] documented in this encounter Visit Diagnoses Not on filedocumented in this encounter
--- OUTSIDE RECORDS SUMMARY | 2025-09-22 18:03 | XMS_ITS | Encounter Summary ---
Author Organization [facility] Address [address] [place] [address] Care Team Providers Care Die Repairer Trimmer Dies Name Role Phone Unavailable Primary Care Provider Unavailabl e Encounter Details Date Type Department Care Team (Late st Contact Info) Description 07/13/2021 Lab Requisition [facility] [address] [place] [address] [place] [address] [place] [address] Social History Tobacco Use Types [...] 6.2(H) <=5.6 % 07/13/2021 10:36 AM CDT [facility] EST. AVG GLUCOSE, A1C 131 mg/dL 07/13/2021 10:36 AM CDT [facility] Blood Collection / Unknown 07/13/2021 6:30 AM CDT 07/13/2021 10:06 AM CDT Narrative [facility] - 07/13/2021 10:36 AM CDT HGB A1C INTERPRETATION NORMAL: <5.7% PRE-DIABETES: 5.7 - 6.4% DIABETES: 6.5% OR GREATER Nargis Guy MD CHEMISTRY ORDERABLES Final Resul t [facility] CLIA# [id number] [place] [address] documented in this encounter Visit Diagnoses Not on filedocumented in this encounter
--- OUTSIDE RECORDS SUMMARY | 2025-09-22 18:03 | XMS_ITS | Encounter Summary ---
Author Organization [facility] Address [address] [place] [address] Care Team Providers Care Harvest Supervisor Name Role Phone Murali Silva MD Primary Care Provider [phone] Karime Aguilera RN [facility] Gurvinder Stephens MD Primary Care Provider [phone] Reason for Visit * Reason Onset Date Comments Patient Requested Call 11/05/2021 Encounter Details Date Type Department Care Team (Late st Contact Info) Description 11/05/2021 Telephone [facility] [address] [place] [address] Christy Khan MD [address] [address] Patient Requested Call Social History [...] Pari Denton RN - 11/05/2021 12:15 PM ROADABILITY MACHINE OPERATOR RN called patient. Pt stating she does not want to stand as her knees buckle. Pt made aware that office does have lower exam tables. Pt stating she is coming to the office visit in electric wheelchair and will also be accompanied by home health. Will also pass along to and medical coordinator pesticide use IMANI Tesfaye ABILITY MACHINE OPERATOR * Telephone Encounter - Holly Yates - 11/05/2021 12:08 PM CST Patient is requesting a call back to confirm accommodations for her appt. She recently had surgery and won't be able to get on a high table for her exam. Please advise: [phone] ABILITY MACHINE OPERATOR documented in this encounter Plan of Treatment Not on file documented as of this encounter Visit Diagnoses Not on filedocumented in this encounter Care Teams Harvest Supervisor Relationship Specialty Start Date End Date Murali Silva MD [address] [place] [address] PCP - General 03/03/18 12/31/21 Gurvinder Renteria MD [address] [place] [address] PCP - General 01/01/22 Karime Aguilera RN 05/07/18 documented as of this encounter
--- OUTSIDE RECORDS SUMMARY | 2025-09-22 18:03 | XMS_ITS | Encounter Summary ---
Author Organization [facility] Address [address] [place] [address] Care Team Providers Care Speech Communication Instructor Name Role Phone Unavailable Primary Care Provider Unavailabl e Encounter Details Date Type Department Care Team (Late st Contact Info) Description 05/18/2021 Lab Requisition [facility] Laboratory Services [address] [place] [address] [place] [address] [place] [address] Social History Tobacco Use Types [...] - 145 mmol/L 05/18/2021 8:44 AM CDT [facility] LABORATORY SERVICES [facility] POTASSIUM 5.7(H) 3.4 - 5.1 mmol/L 05/18/2021 8:44 AM CDT [facility] CHLORIDE 101 98 - 107 mmol/L 05/18/2021 8:44 AM CDT [facility] CO2 24 22 - 29 mmol/L 05/18/2021 8:44 AM T [facility] CALCIUM 8.7 8.6 - 10.4 mg/dL 05/18/2021 8:44 AM CDT [facility] BUN 58(H) 6 - 20 mg/dL 05/18/2021 8:44 AM T [facility] CREATININE 3.20(H) 0.51 - 0.95 mg/dL 05/18/2021 8:44 AM T [facility] GLUCOSE 102(H) 74 - 99 mg/dL 05/18/2021 8:44 AM T [facility] GFR 15 mL/min/1.7 3 sq meter 05/18/2021 8:44 AM T [facility] Comment: eGFR has not been [...] 3 sq meter 05/18/2021 8:44 AM CDT [facility] ANION GAP 14 8 - 16 mmol/L 05/18/2021 8:44 AM T [facility] Blood Collection / Unknown 05/18/2021 4:57 AM CDT 05/18/2021 8:11 AM CDT us Nargis Guy MD CHEMISTRY ORDERABLES Final Resul t [facility] CLIA# [id number] [place] [address] documented in this encounter Visit Diagnoses Not on filedocumented in this encounter
--- OUTSIDE RECORDS SUMMARY | 2025-09-22 18:03 | XMS_ITS | Encounter Summary ---
Author Organization [facility] Address [address] [place] [address] Care Team Providers Care Search Engine Optimization Manager Name Role Phone Unavailable Primary Care Provider Unavailabl e Encounter Details Date Type Department Care Team (Late st Contact Info) Description 06/20/2021 Lab Requisition [facility] Laboratory Services [address] [place] [address] Social History Tobacco Use Types Packs/Day Years [...]
--- OUTSIDE RECORDS SUMMARY | 2025-09-22 18:03 | XMS_ITS | Encounter Summary ---
Author Organization [facility] Address [address] [place] [address] Care Team Providers Care Presentation Team Member Name Role Phone Unavailable Primary Care Provider Unavailabl e Encounter Details Date Type Department Care Team (Late st Contact Info) Description 06/21/2021 Lab Requisition [facility] Laboratory Services [address] [place] [address] [place] [address] [place] [address] Social History Tobacco Use Types [...] - 10.5 K/uL 06/21/2021 1:36 PM CDT [facility] LAB[facility] RBC 3.66(L) 3.90 - 4.90 M/uL 06/21/2021 1:36 PM [facility] HEMOGLOBIN 10.1(L) 11.8 - 14.8 g/dL 06/21/2021 1:36 PM [facility] HEMATOCRIT 31.1(L) 35.5 - 44.0 % 06/21/2021 1:36 PM CDT [facility] MCV 84.9 82.0 - 99.0 fL 06/21/2021 1:36 [facility] MCH 27.5(L) 27.8 - 34.5 pg 06/21/2021 1:36 PM [facility] MCHC 32.3(L) 32.5 - 35.5 g/dL 06/21/2021 1:36 PM [facility] RDW 15.7(H) 11.5 - 14.5 % 06/21/2021 1:36 PM CDT [facility] PLATELETS 397 160 - 420 K/uL 06/21/2021 1:36 PM [facility] MPV 7.6(L) 8.7 - 12.7 fL 06/21/2021 1:36 PM CDT [facility] NEUTROPHILS 64 % 06/21/2021 1:36 PM CDT [facility] LYMPHOCYTES 26 % 06/21/2021 1:36 PM CDT [facility] MONOCYTES 7 % 06/21/2021 1:36 PM CDT [facility] LABORATORY SERVICES [facility] EOSINOPHILS 3 % 06/21/2021 1:36 PM CDT [facility] BASOPHILS 0 % 06/21/2021 1:36 PM CDT [facility] NEUTROPHIL ABSOLUTE 5.00 1.90 - 7.00 K/uL 06/21/2021 1:36 PM CDT [facility] LYMPHOCYTE ABSOLUTE 2.00 0.70 - 4.50 K/uL 06/21/2021 1:36 PM CDT [facility] MONOCYTE ABSOLUTE 0.50 0.10 - 1.30 K/uL 06/21/2021 1:36 PM CDT [facility] SERVICES [facility] EOSINOPHIL ABSOLUTE 0.30 0.00 - 0.70 K/uL 06/21/2021 1:36 PM CDT [facility] SERVICES [facility] BASOPHILS ABSOLUTE 0.00 0.00 - 0.20 K/uL 06/21/2021 1:36 PM CDT [facility] Blood Collection / Unknown 06/21/2021 11:20 AM CDT 06/21/2021 1:28 PM CDT Nargis Guy MD HEMATOLOGY ORDERABLES Final Resu lt [facility] CLIA# [id number] [place] [address] * (ABNORMAL) COMPREHENSIVE METABOLIC PANEL (06/21/2021 11:20 AM CDT) Pathologist [facility] SODIUM 137 136 - 145 mmol/L 06/21/2021 2:02 PM CDT [facility] POTASSIUM 4.3 3.4 - 5.1 mmol/L 06/21/2021 2:02 PM CDT [facility] CHLORIDE 102 98 - 107 mmol/L 06/21/2021 2:02 PM CDT [facility] CO2 25 22 - 29 mmol/L 06/21/2021 2:02 PM CDT [facility] CALCIUM 9.2 8.6 - 10.4 mg/dL 06/21/2021 2:02 PM CDT [facility] BUN 11 6 - 20 mg/dL 06/21/2021 2:02 PM CDT [facility] CREATININE 0.90 0.51 - 0.95 mg/dL 06/21/2021 2:02 PM CDT [facility] GLUCOSE 130(H) 74 - 99 mg/dL 06/21/2021 2:02 PM CDT [facility] TOTAL PROTEIN 6.6 6.3 - 8.7 g/dL 06/21/2021 2:02 PM T [facility] ALBUMIN 2.8(L) 3.5 - 5.2 g/dL 06/21/2021 2:02 PM T [facility] BILIRUBIN TOTAL 0.2(L) 0.3 - 1.2 mg/dL 06/21/2021 2:02 PM T [facility] ALKALINE PHOSPHATASE 120 40 - 150 U/L 06/21/2021 2:02 PM T [facility] AST 27 0 - 33 U/L 06/21/2021 2:02 PM [facility] ALT 23 0 - 33 U/L 06/21/2021 2:02 PM T [facility] GFR >60 mL/min/1.7 3 sq meter 06/21/2021 2:02 PM T [facility] Comment: eGFR has not been validated for [...] 3 sq meter 06/21/2021 2:02 PM CDT [facility] ANION GAP 10 8 - 16 mmol/L 06/21/2021 2:02 PM T [facility] Blood Collection / Unknown 06/21/2021 11:20 AM CDT 06/21/2021 1:28 PM CDT us Nargis Guy MD CHEMISTRY ORDERABLES Final Resul t [facility] CLIA# [id number] [place] [address] documented in this encounter Visit Diagnoses Not on filedocumented in this encounter
--- OUTSIDE RECORDS SUMMARY | 2025-09-22 18:03 | XMS_ITS | Encounter Summary ---
Author Organization [facility] Address [address] [place] [address] Care Team Providers Care Environmental Conflict Manager Name Role Phone Unavailable Primary Care Provider Unavailabl e Encounter Details Date Type Department Care Team (Late st Contact Info) Description 06/27/2021 Lab Requisition [facility] Laboratory Services [address] [place] [address] [place] [address] [place] [address] Social History Tobacco Use Types [...] - 10.5 K/uL 06/27/2021 8:37 AM CDT [facility] LABORATORY [facility] RBC 3.25(L) 3.90 - 4.90 M/uL 06/27/2021 8:37 AM CDT [facility]ORY [facility] HEMOGLOBIN 8.9(L) 11.8 - 14.8 g/dL 06/27/2021 8:37 [facility] HEMATOCRIT 27.8(L) 35.5 - 44.0 % 06/27/2021 8:37 AM CDT [facility]ORY [facility] MCV 85.6 82.0 - 99.0 fL 06/27/2021 8:37 AM CDT [facility] MCH 27.5(L) 27.8 - 34.5 pg 06/27/2021 8:37 AM CDT [facility]ORY [facility] MCHC 32.2(L) 32.5 - 35.5 g/dL 06/27/2021 8:37 AM CDT [facility] RDW 15.7(H) 11.5 - 14.5 % 06/27/2021 8:37 AM CDT [facility] LAB[facility]ORY [facility] PLATELETS 367 160 - 420 K/uL 06/27/2021 8:37 AM [facility] MPV 7.7(L) 8.7 - 12.7 fL 06/27/2021 8:37 AM CDT [facility]ORY [facility] NEUTROPHILS 53 % 06/27/2021 8:37 AM CDT [facility] LAB[facility]ORY [facility] LYMPHOCYTES 33 % 06/27/2021 8:37 AM CDT [facility] LABORATORY SERVICES [facility] MONOCYTES 9 % 06/27/2021 8:37 AM CDT [facility] LABORATORY SERVICES [facility] EOSINOPHILS 4 % 06/27/2021 8:37 AM CDT [facility] LABORATORY SERVICES [facility] BASOPHILS 1 % 06/27/2021 8:37 AM CDT [facility] LABORATORY [facility] NEUTROPHIL ABSOLUTE 3.40 1.90 - 7.00 K/uL 06/27/2021 8:37 AM CDT [facility] LABORATORY [facility] LYMPHOCYTE ABSOLUTE 2.20 0.70 - 4.50 K/uL 06/27/2021 8:37 AM CDT [facility] LABORATORY [facility] MONOCYTE ABSOLUTE 0.60 0.10 - 1.30 K/uL 06/27/2021 8:37 AM CDT [facility] LABORATORY SERVICES [facility] EOSINOPHIL ABSOLUTE 0.30 0.00 - 0.70 K/uL 06/27/2021 8:37 AM CDT [facility] LABORATORY SERVICES [facility] BASOPHILS ABSOLUTE 0.10 0.00 - 0.20 K/uL 06/27/2021 8:37 AM CDT [facility]ORY [facility] Blood Collection / Unknown 06/27/2021 4:22 AM CDT 06/27/2021 8:17 AM CDT Nargis Guy MD HEMATOLOGY ORDERABLES Final Resu lt [facility] CLIA# [id number] [place] [address] * (ABNORMAL) COMPREHENSIVE METABOLIC PANEL (06/27/2021 4:22 AM CDT) SODIUM 137 136 - 145 mmol/L 06/27/2021 9:05 AM CDT [facility] POTASSIUM 3.9 3.4 - 5.1 mmol/L 06/27/2021 9:05 AM T [facility] LABORATORY [facility] CHLORIDE 104 98 - 107 mmol/L 06/27/2021 9:05 AM T [facility] LABORATORY [facility] CO2 24 22 - 29 mmol/L 06/27/2021 9:05 AM T [facility] LAB[facility]ORY [facility] CALCIUM 8.8 8.6 - 10.4 mg/dL 06/27/2021 9:05 AM CDT [facility]ORY [facility] BUN 10 6 - 20 mg/dL 06/27/2021 9:05 AM CDT [facility] LAB[facility]ORY [facility] CREATININE 1.00(H) 0.51 - 0.95 mg/dL 06/27/2021 9:05 AM T [facility] LABOR[facility]ORY [facility] GLUCOSE 110(H) 74 - 99 mg/dL 06/27/2021 9:05 AM T [facility] TOTAL PROTEIN 5.9(L) 6.3 - 8.7 g/dL 06/27/2021 9:05 AM [facility] ALBUMIN 2.5(L) 3.5 - 5.2 g/dL 06/27/2021 9:05 AM [facility] BILIRUBIN TOTAL <0.2(L) 0.2 - 1.1 mg/dL 06/27/2021 9:05 AM [facility] ALKALINE PHOSPHATASE 96 40 - 150 U/L 06/27/2021 9:05 AM [facility] AST 19 0 - 33 U/L 06/27/2021 9:05 AM [facility] ALT 17 0 - 33 U/L 06/27/2021 9:05 AM [facility] GFR 57 mL/min/1.7 3 sq meter 06/27/2021 9:05 AM [facility] Comment: [...] 3 sq meter 06/27/2021 9:05 AM T [facility] ANION GAP 9 8 - 16 mmol/L 06/27/2021 9:05 AM [facility] Blood Collection / Unknown 06/27/2021 4:22 AM CDT 06/27/2021 8:17 AM CDT us Nargis Guy MD CHEMISTRY ORDERABLES Final Resul t [facility] CLIA# [id number] [place] [address] documented in this encounter Visit Diagnoses Not on filedocumented in this encounter
--- OUTSIDE RECORDS SUMMARY | 2025-09-22 18:03 | XMS_ITS | Encounter Summary ---
Author Organization [facility] Address [address] [place] [address] Care Team Providers Care Detacker Name Role Phone Unavailable Primary Care Provider Unavailabl e Encounter Details Date Type Department Care Team (Late st Contact Info) Description 05/14/2021 Lab Requisition [facility] Laboratory Services [address] [place] [address] [place] [address] [place] [address] Social History Tobacco Use Types [...] - 10.5 K/uL 05/14/2021 6:03 AM CDT [facility] LABORATORY [facility] RBC 2.60(L) 3.90 - 4.90 M/uL 05/14/2021 6:03 AM [facility] LAB[facility]AT[facility] HEMOGLOBIN 7.6(L) 11.8 - 14.8 g/dL 05/14/2021 6:03 AM [facility] HEMATOCRIT 22.9(L) 35.5 - 44.0 % 05/14/2021 6:[facility] MCV 88.1 82.0 - 99.0 fL 05/14/2021 6:03 AM [facility] MCH 29.3 27.8 - 34.5 pg 05/14/2021 6:03 AM [facility] MCHC 33.3 32.5 - 35.5 g/dL 05/14/2021 6:03 AM [facility] RDW 15.0(H) 11.5 - 14.5 % 05/14/2021 6:03 AM CDT [facility] PLATELETS 168 160 - 420 K/uL 05/14/2021 6:03 AM [facility] MPV 8.5(L) 8.7 - 12.7 fL 05/14/2021 6:03 AM CDT [facility] NEUTROPHILS 56 % 05/14/2021 6:03 AM CDT [facility] LYMPHOCYTES 26 % 05/14/2021 6:03 AM CDT [facility] LAB[facility] MONOCYTES 13 % 05/14/2021 6:03 AM CDT [facility] LABORATORY SERVICES [facility] EOSINOPHILS 5 % 05/14/2021 6:03 AM CDT [facility] BASOPHILS 1 % 05/14/2021 6:03 AM CDT [facility] NEUTROPHIL ABSOLUTE 3.70 1.90 - 7.00 K/uL 05/14/2021 6:03 [facility] LYMPHOCYTE ABSOLUTE 1.70 0.70 - 4.50 K/uL 05/14/2021 6:03 AM CDT [facility] LABORATORY [facility] MONOCYTE ABSOLUTE 0.80 0.10 - 1.30 K/uL 05/14/2021 6:03 AM CDT [facility] LABORATORY SERVICES - [facility] EOSINOPHIL ABSOLUTE 0.30 0.00 - 0.70 K/uL 05/14/2021 6:03 AM CDT [facility] LABORATORY SERVICES - [facility] BASOPHILS ABSOLUTE 0.10 0.00 - 0.20 K/uL 05/14/2021 6:03 AM CDT [facility] LABORATORY [facility] Blood BLOOD SPECIMEN / Unknown Collection / Unknown 05/14/2021 3:30 AM CDT 05/14/2021 5:27 AM CDT Nargis Guy MD HEMATOLOGY ORDERABLES Final Resu lt [facility] CLIA# [id number] [address] [place] [address] * (ABNORMAL) BASIC METABOLIC PANEL (05/14/2021 3:30 AM CDT) Pathologist [facility] SODIUM 140 136 - 145 mmol/L 05/14/2021 6:38 AM CDT [facility] LABORATORY [facility] POTASSIUM 4.2 3.4 - 5.1 mmol/L 05/14/2021 6:38 AM CDT [facility] LABORATORY [facility] CHLORIDE 105 98 - 107 mmol/L 05/14/2021 6:38 AM CDT [facility] LABORATORY [facility] CO2 21(L) 22 - 29 mmol/L 05/14/2021 6:38 AM CDT [facility] LABORATORY [facility] CALCIUM 8.9 8.6 - 10.4 mg/dL 05/14/2021 6:38 AM CDT [facility] LABORATORY [facility] BUN 22(H) 6 - 20 mg/dL 05/14/2021 6:38 AM CDT [facility] LABORATORY [facility] CREATININE 2.50(H) 0.51 - 0.95 mg/dL 05/14/2021 6:38 AM CDT [facility] LABORATORY [facility] GLUCOSE 96 74 - 99 mg/dL 05/14/2021 6:38 AM CDT [facility] LAB[facility]ATORY [facility] GFR 20 mL/min/1.7 3 sq meter 05/14/2021 6:38 AM CDT [facility] Comment: eGFR has not been [...] 3 sq meter 05/14/2021 6:38 AM CDT [facility] ANION GAP 14 8 - 16 mmol/L 05/14/2021 6:38 AM CDT [facility] Blood BLOOD SPECIMEN / Unknown Collection / Unknown 05/14/2021 3:30 AM CDT 05/14/2021 5:27 AM CDT us Nargis Guy MD CHEMISTRY ORDERABLES Final Resul t [facility] [employer] [facility] CLIA# [id number] [place] [address] documented in this encounter Visit Diagnoses Not on filedocumented in this encounter
--- OUTSIDE RECORDS SUMMARY | 2025-09-22 18:03 | XMS_ITS | Encounter Summary ---
Author Organization [facility] Address [address] [place] [address] Care Team Providers Care Analog Design Engineer Name Role Phone Unavailable Primary Care Provider Unavailabl e Encounter Details Date Type Department Care Team (Late st Contact Info) Description 06/21/2021 Lab Requisition [facility] Laboratory Services [address] [place] [address] [place] [address] [place] [address] Social History Tobacco Use Types [...] COLI(A) HAKEEM MCG/ML 06/23/2021 8:32 AM CDT [facility] Urine URINE SPECIMEN OBTAINED BY [...] - GENERAL ORDERABLE S Final Result [facility]# [id number] [facility] [place] [address] * (ABNORMAL) URINALYSIS WITH REFLEX CULTURE (06/20/2021 8:08 PM CDT) COLOR UA Yellow Pale to Dark Yellow 06/21/2021 11:06 AM CDT [facility] CLARITY UA Slightly Cloudy(A) Clear 06/21/2021 11:06 AM CDT [facility] SPECIFIC GRAVITY UA 1.012 1.003 - 1.035 06/21/2021 11:06 AM CDT [facility] PH UA 5.0 5.0 - 8.0 06/21/2021 11:06 AM CDT [facility] LEUKOCYTE ESTERASE UA 1+(A) Negative 06/21/2021 11:06 AM [facility] NITRITE UA Positive(A) Negative 06/21/2021 11:06 AM [facility] PROTEIN UA Negative Negative 06/21/2021 11:06 AM T [facility] GLUCOSE UA 1+(A) Negative 06/21/2021 11:06 AM T [facility] KETONES UA Negative Negative 06/21/2021 11:06 AM T [facility] UROBILINOGEN UA Normal <2.0 mg/dL 11:06 AM T [facility] BILIRUBIN UA Negative Negative 06/21/2021 11:06 AM T [facility] BLOOD UA 1+(A) Negative 06/21/2021 11:06 AM [facility] WBC UA 11-25(A) 0 - 2 /hpf 06/21/2021 11:06 AM T [facility] RBC UA 6-10(A) 0 - 2 /hpf 06/21/2021 11:06 AM CDT [facility] BACTERIA UA 2+(A) Negative /hpf 06/21/2021 11:06 AM T [facility] EPITHELIAL CELLS, URINE 6-10(A) 0 - 5 /hpf 06/21/2021 11:06 AM [facility] HYALINE CAST None Seen None Seen, 0-2 /lpf 06/21/2021 11:06 AM [facility] Urine URINE SPECIMEN OBTAINED BY CLEAN CATCH PROCEDURE / Unknown Collection / Unknown 06/20/2021 8:08 PM CDT 06/21/2021 10:49 AM [facility] - 06/21/2021 11:06 AM CDT Based on results, a urine culture has been reflexed. us Nargis Guy MD URINE ORDERABLES Final Result [facility] CLIA# [id number] [place] [address] documented in this encounter Visit Diagnoses Not on filedocumented in this encounter
--- OUTSIDE RECORDS SUMMARY | 2025-09-22 18:03 | XMS_ITS | Encounter Summary ---
Author Organization [facility] Address [address] [place] [address] Care Team Providers Care Reinforcing Bar Setter Name Role Phone Unavailable Primary Care Provider Unavailabl e Encounter Details Date Type Department Care Team (Late st Contact Info) Description 07/08/2021 Lab Requisition [facility] Laboratory Services [address] [place] [address] [place] [address] [place] [address] Social History Tobacco Use Types [...] - 10.5 K/uL 07/08/2021 7:17 AM CDT [facility]ORATORY [facility] RBC 3.47(L) 3.90 - 4.90 M/uL 07/08/2021 7:17 AM CDT [facility]OR[facility] HEMOGLOBIN 9.4(L) 11.8 - 14.8 g/dL 07/08[facility]21 [facility] HEMATOCRIT 29.2(L) 35.5 - 44.0 % 07/08/2021 7:17 AM CDT [facility] LABORATORY [facility] MCV 84.2 82.0 - 99.0 fL 07/08/2021 7:17 AM CDT [facility] LABORATORY [facility] MCH 27.1(L) 27.8 - 34.5 pg 07/08/2021 7:[facility] MCHC 32.1(L) 32.5 - 35.5 g/dL 07/08/2021 7:17 [facility] RDW 15.8(H) 11.5 - 14.5 % 07/08/2021 7:17 AM CDT [facility] LABORATORY [facility] PLATELETS 368 160 - 420 K/uL 07/08/2021 7:17 [facility] MPV 7.6(L) 8.7 - 12.7 fL 07/08/2021 7:17 AM CDT [facility]ORATORY [facility] NEUTROPHILS 55 % 07/08/2021 7:17 AM CDT [facility] LABORATORY [facility] LYMPHOCYTES 32 % 07/08/2021 7:17 AM CDT [facility] LABORATORY SERVICES [facility] MONOCYTES 7 % 07/08/2021 7:17 AM CDT [facility] LABORATORY SERVICES [facility] EOSINOPHILS 5 % 07/08/2021 7:17 AM CDT [facility] LABORATORY SERVICES [facility] BASOPHILS 1 % 07/08/2021 7:17 AM CDT [facility] LABORATORY [facility] NEUTROPHIL ABSOLUTE 3.50 1.90 - 7.00 K/uL 07/08/2021 7:17 AM CDT [facility] LABORATORY [facility] LYMPHOCYTE ABSOLUTE 2.00 0.70 - 4.50 K/uL 07/08/2021 7:17 AM CDT [facility] LABORATORY [facility] MONOCYTE ABSOLUTE 0.50 0.10 - 1.30 K/uL 07/08/2021 7:17 AM CDT [facility] LABORATORY SERVICES [facility] EOSINOPHIL ABSOLUTE 0.30 0.00 - 0.70 K/uL 07/08/2021 7:17 AM CDT [facility] LABORATORY SERVICES [facility] BASOPHILS ABSOLUTE 0.00 0.00 - 0.20 K/uL 07/08/2021 7:17 AM CDT [facility] LABORATORY [facility] Blood Collection / Unknown 07/08/2021 5:30 AM CDT 07/08/2021 6:13 AM CDT Nargis Guy MD HEMATOLOGY ORDERABLES Final Resu lt [facility] CLIA# [id number] [place] [address] * (ABNORMAL) COMPREHENSIVE METABOLIC PANEL (07/08/2021 5:30 AM CDT) SODIUM 137 136 - 145 mmol/L 07/08/2021 7:41 AM CDT [facility] LABORATORY [facility] POTASSIUM 4.2 3.4 - 5.1 mmol/L 07/08/2021 7:41 AM CDT [facility] LABORATORY [facility] CHLORIDE 102 98 - 107 mmol/L 07/08/2021 7:41 AM CDT [facility] LABORATORY [facility] CO2 24 22 - 29 mmol/L 07/08/2021 7:41 AM CDT [facility] LABORATORY [facility] CALCIUM 8.9 8.6 - 10.4 mg/dL 07/08/2021 7:41 AM CDT [facility] LABORATORY [facility] BUN 12 6 - 20 mg/dL 07/08/2021 7:41 AM CDT [facility] LABORATORY [facility] CREATININE 0.87 0.51 - 0.95 mg/dL 07/08/2021 7:41 AM CDT [facility] LABORATORY [facility] GLUCOSE 122(H) 74 - 99 mg/dL 07/08/2021 7:41 AM CDT [facility] LABORATORY [facility] TOTAL PROTEIN 6.0(L) 6.3 - 8.7 g/dL 07/08/2021 7:41 AM [facility] ALBUMIN 2.8(L) 3.5 - 5.2 g/dL 07/08/2021 7:41 AM [facility] BILIRUBIN TOTAL 0.2 0.2 - 1.1 mg/dL 07/08/2021 7:41 AM T [facility] ALKALINE PHOSPHATASE 92 40 - 150 U/L 07/08/2021 7:41 AM T [facility] AST 13 0 - 33 U/L 07/08/2021 7:41 AM [facility] ALT 10 0 - 33 U/L 07/08/2021 7:41 AM [facility] GFR >60 mL/min/1.7 3 sq meter 07/08/2021 7:41 AM [facility] Comment: eGFR has not been validated for [...] 3 sq meter 07/08/2021 7:41 AM CDT [facility] ANION GAP 11 8 - 16 mmol/L 07/08/2021 7:41 AM T [facility] Blood Collection / Unknown 07/08/2021 5:30 AM CDT 07/08/2021 6:13 AM CDT us Nargis Guy MD CHEMISTRY ORDERABLES Final Resul t [facility] CLIA# [id number] [place] [address] documented in this encounter Visit Diagnoses Not on filedocumented in this encounter
--- OUTSIDE RECORDS SUMMARY | 2025-09-22 18:03 | XMS_ITS | Clinical Summary ---
Author Organization [facility] [employer] Address [address] [place] [address] Care Team Providers Care Pipeline Superintendent Name Role Phone Karime Aguilera RN, Haresh K MD Primary Care Provider [phone] Source Comments [facility],non-owned Affiliates and Associated Physician Practices is amultiple site organization consisting of ambulatory clinics and hospital sitesin [place], [place], [place] and [place]. This disclosure is being madepursuant to the Care Everywhere program and may not contain all information available regarding this patient. Last updated 18.[facility] Allergies Active Allergy Reactions Criticality Noted Date [...] 1 8 Active Blood Glucose Monitoring Suppl (Executive Channel VERIO FLEX SYSTEM) w/Device KIT 2 Active TRULICITY 1.5 MG/0.5ML injection 2 Active ergocalciferol (DRISDOL) 1.25 MG (08371 UT) capsule ergocalciferol (vitamin D2) 1,250 mcg [...] - 106 mg/dL 04/04/2022 8:46 AM CDT [facility] Specimen Type Cap Fingerstick 2021 8:46 AM CDT [facility] Blood BLOOD SPECIMEN / Unknown 04/04/2022 8:36 AM CDT 04/04/2022 8:46 AM CDT Tin Khan MD LAB - POINT OF CARE ORDERAB LES Final Result [facility] [address] [place] [id number] from Last 3 Months or Most Recently Relevant to Health Maintenance Insurance [id number] [id number] [facility] Advance Directives * Full Code (Latest Code Status on File) Date Activated Date Inactivated Comments 05/07/2018 11:05 AM 05/08/2018 2:57 PM Care Teams Pipeline Superintendent Relationship Specialty Start Date End Date Gurvinder Renteria MD [address] [place] [address] PCP - General 01/01/22 Karime Aguilera, RN 05/07/18
--- OUTSIDE RECORDS SUMMARY | 2025-09-22 18:03 | XMS_ITS | Encounter Summary ---
Author Organization [facility] Address [address] [facility] [place] [address] Care Team Providers Care Government Relations Director Name Role Phone Karime Aguilera RN, Haresh K MD Primary Care Provider Reason for Visit * Reason Onset Date Comments Request Lab Order 09/10/2023 Imaging 09/10/2023 Encounter Details Date Type Department Care Team (Late st Contact Info) Description 09/10/2023 Telephone [facility] TODDLER TEACHER [address] [place] [address] Christy Khan MD [address] [place] [address] Request Lab Order; Imaging Social [...] needs screening mammogram ordered and sent to [facility]. RN ordered and faxed to [phone] RN scheduled pt for WWE 10/14/2023 9:15 AM Christy Khan MD Pt accepts appt * Telephone Encounter - Nataliia Bangura - 09/10/2023 10:05 AM CDT Pt wants Mammogram order sent to [facility] in [place], [place]. documented in this encounter Plan of Treatment Not on file documented as of this encounter Visit Diagnoses Diagnosis Encounter for screening mammogram for malignant neoplasm of breast- Primary Other screening mammogram documented in this encounter Care Teams Government Relations Director Relationship Specialty Start Date End Date Gurvinder Renteria MD [address] [place] [address] PCP - General 01/01/22 Karime Aguilera RN 05/07/18 documented as of this encounter
--- OUTSIDE RECORDS SUMMARY | 2025-09-22 18:03 | XMS_ITS | Clinical Summary ---
Author Organization [facility] Address [address] [place] [address] Care Team Providers Care Heliotherapist Name Role Phone Unavailable Primary Care Provider [...] meter) OneTouch Verio Flex Meter Active Insulin [place], Disposable, (TRUEplus Pen Needle) 31 gauge x [...] 6.2(H) <=5.6 % 07/13/2021 10:36 AM CDT [facility] [employer] [facility] EST. AVG GLUCOSE, A1C 131 mg/dL 07/13/2021 10:36 AM CDT [facility] [employer] [facility] Blood Collection / Unknown 07/13/2021 6:30 AM CDT 07/13/2021 10:06 AM CDT Narrative [facility] LABORATORY SERVICES [facility] - 07/13/2021 10:36 AM CDT HGB A1C INTERPRETATION NORMAL: <5.7% PRE-DIABETES: 5.7 - 6.4% DIABETES: 6.5% OR GREATER Nargis Guy MD CHEMISTRY ORDERABLES Final Resul t [facility] LABORATORY SERVICES [facility] CLIA# [id number] [place] [address] from Last 3 Months or Most Recently Relevant to Health Maintenance Insurance [facility] MEDICAID RX [id number] Medicare Part D [place] [address] Advance Directives For more information, please contact: [phone] * Full Code (Latest Code Status on File) Date Activated Date Inactivated Comments 05/19/2021 12:52 PM 05/26/2021 12:57 AM
--- OUTSIDE RECORDS SUMMARY | 2025-09-22 18:03 | XMS_ITS | Encounter Summary ---
Author Organization [facility] Address [address] [place] [address] Care Team Providers Care Sensory Scientist Name Role Phone Unavailable Primary Care Provider Unavailabl e Encounter Details Date Type Department Care Team (Late st Contact Info) Description 07/02/2021 Lab Requisition [facility] Laboratory Services [address] [place] [address] [place] [address] [place] [address] Social History Tobacco Use Types [...] SEDIMENTATION RATE (07/02/2021 4:10 AM CDT) Pathologist [facility] Emergency Department ESR (SEDIMENTATION RATE) 59(H) 0 - 30 mm/Hr 07/02/2021 9:26 AM CDT [facility] Blood Collection / Unknown 07/02/2021 4:10 AM CDT 07/02/2021 5:57 AM CDT Nargis Guy MD HEMATOLOGY ORDERABLES Final Resu lt Performing Organization Address City/[facility]/ZIP Co de Phone Number [facility] CLIA# [id number] [place] [address] * RETICULOCYTES (07/02/2021 4:10 AM CDT) Pathologist [facility] RETICULOCYTES 2.0 0.4 - 2.0 % 07/02/2021 6:49 AM CDT [facility] IMMATURE RETIC FRACTION 0.5 % 07/02/2021 6:49 AM CDT [facility] RETICULOCYTE, ABSOLUTE 0.0681 0.0250 - 0.1480 10e6/uL 07/02/2021 6:49 AM CDT [facility] Blood Collection / Unknown 07/02/2021 4:10 AM CDT 07/02/2021 5:57 AM CDT Nargis Guy MD HEMATOLOGY ORDERABLES Final Resu lt Performing Organization Address City/[facility]/ZIP Co de Phone Number [facility] CLIA# [id number] [place] [address] * (ABNORMAL) PREALBUMIN (07/02/2021 4:10 AM CDT) PREALBUMIN 17(L) 20 - 40 mg/dL 07/02/2021 2:25 PM CDT [facility] Blood Collection / Unknown 07/02/2021 4:10 AM CDT 07/02/2021 5:57 AM CDT Nargis Guy MD CHEMISTRY ORDERABLES Final Resul t [facility] CLIA# [id number] [address] [place] [address] * (ABNORMAL) IRON, TIBC, AND PERCENT SATURATION (07/02/2021 4:10 AM CDT) IRON 36(L) 37 - 145 ug/dL 07/02/2021 7:20 AM CDT [facility] TIBC 161(L) 265 - 497 ug/dL 07/02/2021 7:20 AM CDT [facility] IRON % SATURATION 22 20 - 55 % 07/02/2021 7:20 AM CDT [facility] Blood Collection / Unknown 07/02/2021 4:10 AM CDT 07/02/2021 5:57 AM CDT Nargis Guy MD CHEMISTRY ORDERABLES Final Resul t [facility] CLIA# [id number] [place] [address] * (ABNORMAL) C-REACTIVE PROTEIN (07/02/2021 4:10 AM CDT) CRP 27.4(H) <5.0 mg/L 07/02/2021 7:20 AM CDT [facility] Blood Collection / Unknown 07/02/2021 4:10 AM CDT 07/02/2021 5:57 AM CDT Nargis Guy MD CHEMISTRY ORDERABLES Final Resul t [facility] CLIA# [id number] [place] [address] * (ABNORMAL) CBC WITH DIFFERENTIAL (07/02/2021 4:10 AM CDT) [facility] WBC 6.5 4.5 - 10.5 K/uL 07/02/2021 6:49 AM CDT [facility] RBC 3.48(L) 3.90 - 4.90 M/uL 07/02/2021 6:49 AM CDT [facility] HEMOGLOBIN 9.5(L) 11.8 - 14.8 g/dL 07/02/2021 6:49 AM CDT [facility] HEMATOCRIT 29.3(L) 35.5 - 44.0 % 07/02/2021 6:49 AM CDT [facility] MCV 84.1 82.0 - 99.0 fL 07/02/2021 6:49 AM CDT [facility] MCH 27.2(L) 27.8 - 34.5 pg 07/02/2021 6:49 AM CDT [facility] MCHC 32.3(L) 32.5 - 35.5 g/dL 07/02/2021 6:49 AM CDT [facility] RDW 15.8(H) 11.5 - 14.5 % 07/02/2021 6:49 AM CDT [facility] PLATELETS 386 160 - 420 K/uL 07/02/2021 6:49 AM CDT [facility] MPV 7.3(L) 8.7 - 12.7 fL 07/02/2021 6:49 AM CDT [facility] NEUTROPHILS 51 % 07/02/2021 6:49 AM CDT [facility] LYMPHOCYTES 36 % 07/02/2021 6:49 AM CDT [facility] SERVICES [facility] MONOCYTES 7 % 07/02/2021 6:49 AM CDT [facility] SERVICES [facility] EOSINOPHILS 5 % 07/02/2021 6:49 AM CDT [facility] SERVICES [facility] BASOPHILS 1 % 07/02/2021 6:49 AM CDT [facility] SERVICES [facility] NEUTROPHIL ABSOLUTE 3.30 1.90 - 7.00 K/uL 07/02/2021 6:49 AM CDT [facility] SERVICES [facility] LYMPHOCYTE ABSOLUTE 2.30 0.70 - 4.50 K/uL 07/02/2021 6:49 AM CDT [facility] SERVICES [facility] MONOCYTE ABSOLUTE 0.50 0.10 - 1.30 K/uL 07/02/2021 6:49 AM CDT [facility] SERVICES [facility] EOSINOPHIL ABSOLUTE 0.30 0.00 - 0.70 K/uL 07/02/2021 6:49 AM CDT [facility] SERVICES [facility] BASOPHILS ABSOLUTE 0.10 0.00 - 0.20 K/uL 07/02/2021 6:49 AM CDT [facility] Blood Collection / Unknown 07/02/2021 4:10 AM CDT 07/02/2021 5:57 AM CDT us Nargis Guy MD HEMATOLOGY ORDERABLES Final Resu lt [facility] CLIA# [id number] [place] [address] * (ABNORMAL) COMPREHENSIVE METABOLIC PANEL (07/02/2021 4:10 AM CDT) SODIUM 139 136 - 145 mmol/L 07/02/2021 7:20 AM CDT [facility] POTASSIUM 4.5 3.4 - 5.1 mmol/L 07/02/2021 7:20 AM CDT [facility] CHLORIDE 104 98 - 107 [...] 3 sq meter 07/02/2021 7:20 AM CDT [facility] ANION GAP 11 8 - 16 mmol/L 07/02/2021 7:20 AM CDT [facility] Blood Collection / Unknown 07/02/2021 4:10 AM CDT 07/02/2021 5:57 AM CDT us Nargis Guy MD CHEMISTRY ORDERABLES Final Resul t [facility] CLIA# [id number] [place] [place] [address] documented in this encounter Visit Diagnoses Not on filedocumented in this encounter
--- OUTSIDE RECORDS SUMMARY | 2025-09-22 18:03 | XMS_ITS | Encounter Summary ---
Author Organization [facility] Address [address] [place] [address] Care Team Providers Care Underwriting Support Specialist Name Role Phone Unavailable Primary Care Provider Unavailabl e Encounter Details Date Type Department Care Team (Late st Contact Info) Description 07/09/2021 Lab Requisition [facility] Laboratory Services [address] [place] [address] [facility], External Provider [address] [place] [address] Social History Tobacco Use Types Packs/Day Years [...] 20 - 40 mg/dL [facility] / Unknown 07/09/2021 4:00 AM CDT 07/09/2021 6:02 AM CDT us External Provider [facility] CHEMISTRY ORDERABLES Jennie inocencio Result [facility] CLIA# [id number] [address] [facility] [place] [address] * (ABNORMAL) CBC WITH DIFFERENTIAL (07/09/2021 4:00 AM CDT) WBC 7.3 4.5 - 10.5 K/uL 07/09/2021 6:20 AM CDT [facility] RBC 3.75(L) 3.90 - 4.90 M/uL 07/09/2021 6:20 AM CDT [facility] HEMOGLOBIN 10.0(L) 11.8 - 14.8 g/dL 07/09/2021 6:20 AM CDT [facility] HEMATOCRIT 31.5(L) 35.5 - 44.0 % 07/09/2021 6:20 AM CDT [facility] MCV 83.8 82.0 - 99.0 fL 07/09/2021 6:20 AM CDT [facility] MCH 26.8(L) 27.8 - 34.5 pg 07/09/2021 6:20 AM CDT [facility] MCHC 31.9(L) 32.5 - 35.5 g/dL 07/09/2021 6:20 AM CDT [facility] RDW 15.7(H) 11.5 - 14.5 % 07/09/2021 6:20 AM CDT [facility] PLATELETS 374 160 - 420 K/uL 07/09/2021 6:20 AM CDT [facility] MPV 7.8(L) 8.7 - 12.7 fL 07/09/2021 6:20 AM CDT [facility] [employer] [facility] NEUTROPHILS 52 % 07/09/2021 6:20 AM CDT [facility] LABORATORY SERVICES [facility] LYMPHOCYTES 36 % 07/09/2021 6:20 AM CDT [facility] LABORATORY SERVICES [facility] MONOCYTES 6 % 07/09/2021 6:20 AM CDT [facility]ORAT[facility] SERVICES [facility] EOSINOPHILS 5 % 07/09/2021 6:20 AM CDT [facility]ORATORY SERVICES [facility] BASOPHILS 1 % 07/09/2021 6:20 AM CDT [facility]ORATORY SERVICES [facility] NEUTROPHIL ABSOLUTE 3.80 1.90 - 7.00 K/uL 07/09/2021 6:20 AM CDT [facility] LABORATORY SERVICES [facility] LYMPHOCYTE ABSOLUTE 2.60 0.70 - 4.50 K/uL 07/09/2021 6:20 AM CDT [facility] LABORATORY SERVICES [facility] MONOCYTE ABSOLUTE 0.50 0.10 - 1.30 K/uL 07/09/2021 6:20 AM CDT [facility] LABORATORY SERVICES [facility] EOSINOPHIL ABSOLUTE 0.40 0.00 - 0.70 K/uL 07/09/2021 6:20 AM CDT [facility] LABORATORY SERVICES [facility] BASOPHILS ABSOLUTE 0.10 0.00 - 0.20 K/uL 07/09/2021 6:20 AM CDT [facility] LABORATORY SERVICES [facility] Blood Collection / Unknown 07/09/2021 4:00 AM CDT 07/09/2021 6:02 AM CDT us External Provider [facility] HEMATOLOGY ORDERABLES Fin al Result [facility] CLIA# [id number] [place] [address] * (ABNORMAL) COMPREHENSIVE METABOLIC PANEL (07/09/2021 4:00 AM CDT) SODIUM 137 136 - 145 mmol/L 07/09/2021 6:41 AM CDT [facility] POTASSIUM 4.4 3.4 - 5.1 mmol/L 07/09/2021 6:41 AM CDT [facility] CHLORIDE 101 98 - 107 mmol/L 07/09/2021 6:41 AM [facility] CO2 24 22 - 29 mmol/L 07/09/2021 6:41 AM [facility] CALCIUM 9.2 8.6 - 10.4 mg/dL 07/09/2021 6:41 AM [facility] BUN 15 6 - 20 mg/dL 07/09/2021 6:41 AM [facility] CREATININE 0.92 0.51 - 0.95 mg/dL 07/09/2021 6:41 AM [facility] GLUCOSE 129(H) 74 - 99 mg/dL 07/09/2021 6:41 AM [facility] TOTAL PROTEIN 6.5 6.3 - 8.7 g/dL 07/09/2021 6:41 AM [facility] ALBUMIN 3.1(L) 3.5 - 5.2 g/dL 07/09/2021 6:41 AM [facility] BILIRUBIN TOTAL <0.2(L) 0.2 - 1.1 mg/dL 07/09/2021 6:41 AM [facility] ALKALINE PHOSPHATASE 99 40 - 150 U/L 07/09/2021 6:41 AM [facility] AST 15 0 - 33 U/L 07/09/2021 6:41 AM [facility] ALT 11 0 - 33 U/L 07/09/2021 6:41 AM [facility] GFR >60 mL/min/1.7 3 sq meter 07/09/2021 6:41 AM [facility] [...] 3 sq meter 07/09/2021 6:41 AM CDT [facility]ORATORY SERVICES [facility] ANION GAP 12 8 - 16 mmol/L 07/09/2021 6:41 AM CDT [facility] Blood Collection / Unknown 07/09/2021 4:00 AM CDT 07/09/2021 6:02 AM CDT us External Provider [facility] CHEMISTRY ORDERABLES Jennie l Result [facility] [employer] [facility] CLIA# [id number] [place] [address] documented in this encounter Visit Diagnoses Not on filedocumented in this encounter
--- OUTSIDE RECORDS SUMMARY | 2025-09-22 18:03 | XMS_ITS | Encounter Summary ---
Author Organization [facility] Address [address] [place] [address] Care Team Providers Care Wildlife Forensic Geneticist Name Role Phone Unavailable Primary Care Provider Unavailabl e Encounter Details Date Type Department Care Team (Late st Contact Info) Description 07/05/2021 Lab Requisition [facility] Laboratory Services [address] [place] [address] [place] [address] [place] [address] Social History Tobacco Use [...] - 10.5 K/uL 07/05/2021 10:39 AM CDT [facility] LABORATORY [facility] RBC 3.78(L) 3.90 - 4.90 M/uL 07/05/2021 10:39 AM CDFORMERLY [facility] LABORATORY [facility] HEMOGLOBIN 10.0(L) 11.8 - 14.8 g/dL 07/05/2021 10:39 AM CDFORMERLY [facility] LABORATORY [facility] HEMATOCRIT 31.8(L) 35.5 - 44.0 % 07/05/2021 10:39 AM CDT [facility]ORY [facility] MCV 84.2 82.0 - 99.0 fL 07/05/2021 10:39 AM CDFORMERLY [facility]ORATORY [facility] MCH 26.5(L) 27.8 - 34.5 pg 07/05/2021 10:39 AM CDFORMERLY [facility] LABORATORY [facility] MCHC 31.5(L) 32.5 - 35.5 g/dL 07/05/2021 10:39 AM CDFORMERLY [facility] LABORATORY [facility] RDW 15.4(H) 11.5 - 14.5 % 07/05/2021 10:39 AM CDT [facility] LABORATORY [facility] PLATELETS 368 160 - 420 K/uL 07/05/2021 10:39 AM [facility]ER[facility] LABORATORY [facility] MPV 7.5(L) 8.7 - 12.7 fL 07/05/2021 10:39 AM CDT [facility] LABORATORY [facility] NEUTROPHILS 53 % 07/05/2021 10:39 AM CDT [facility] LYMPHOCYTES 33 % 07/05/2021 10:39 AM CDT [facility] MONOCYTES 8 % 07/05/2021 10:39 AM CDT [facility] LABORATORY SERVICES [facility] EOSINOPHILS 5 % 07/05/2021 10:39 AM CDT [facility] LABORATORY SERVICES [facility] BASOPHILS 1 % 07/05/2021 10:39 AM CDT [facility] NEUTROPHIL ABSOLUTE 3.40 1.90 - 7.00 K/uL 07/05/2021 10:39 AM CDT [facility] LABOR[facility]ORY [facility] LYMPHOCYTE ABSOLUTE 2.20 0.70 - 4.50 K/uL 07/05/2021 10:39 AM CDT [facility] LABOR[facility]ORY [facility] MONOCYTE ABSOLUTE 0.50 0.10 - 1.30 K/uL 07/05/2021 10:39 AM CDT [facility] LABORATORY SERVICES - [facility] EOSINOPHIL ABSOLUTE 0.30 0.00 - 0.70 K/uL 07/05/2021 10:39 AM CDT [facility] LABORATORY SERVICES - [facility] BASOPHILS ABSOLUTE 0.10 0.00 - 0.20 K/uL 07/05/2021 10:39 AM CDT [facility] LABORATORY SERVICES [facility] Blood Collection / Unknown 07/05/2021 6:00 AM CDT 07/05/2021 10:24 AM CDT Nargis Gyu MD HEMATOLOGY ORDERABLES Final Resu lt [facility] CLIA# [id number] [place] [address] * (ABNORMAL) COMPREHENSIVE METABOLIC PANEL (07/05/2021 6:00 AM CDT) SODIUM 139 136 - 145 mmol/L 07/05/2021 11:04 AM CDT [facility] LAB[facility] POTASSIUM 4.5 3.4 - 5.1 mmol/L 07/05/2021 11:04 AM CDT [facility] LABORATORY SERVICES [facility] CHLORIDE 102 98 - 107 mmol/L 07/05/2021 11:04 AM CDT [facility] LABORATORY SERVICES [facility] CO2 25 22 - 29 mmol/L 07/05/2021 11:04 AM CDT [facility] LABORATORY SERVICES [facility] CALCIUM 9.1 8.6 - 10.4 mg/dL 07/05/2021 11:04 AM CDT [facility] LABORATORY SERVICES [facility] BUN 14 6 - 20 mg/dL 07/05/2021 11:04 AM CDT [facility] LABORATORY SERVICES [facility] CREATININE 0.95 0.51 - 0.95 mg/dL 07/05/2021 11:04 AM CDT [facility] LABORATORY SERVICES [facility] GLUCOSE 101(H) 74 - 99 mg/dL 07/05/2021 11:04 AM CDT [facility] LABORATORY SERVICES [facility] TOTAL PROTEIN 6.1(L) 6.3 - 8.7 g/dL 07/05/2021 11:04 AM [facility] ALBUMIN 2.9(L) 3.5 - 5.2 g/dL 07/05/2021 11:04 AM [facility] BILIRUBIN TOTAL <0.2(L) 0.2 - 1.1 mg/dL 07/05/2021 11:04 AM [facility] ALKALINE PHOSPHATASE 107 40 - 150 U/L 07/05/2021 11:04 AM [facility] AST 16 0 - 33 U/L 07/05/2021 11:04 AM [facility] ALT 13 0 - 33 U/L 07/05/2021 11:04 AM [facility] GFR 60 mL/min/1.7 3 sq meter 07/05/2021 11:04 AM [facility] Comment: eGFR has not [...] 3 sq meter 07/05/2021 11:04 AM T [facility] ANION GAP 12 8 - 16 mmol/L 07/05/2021 11:04 AM [facility] Blood Collection / Unknown 07/05/2021 6:00 AM CDT 07/05/2021 10:24 AM CDT us Nargis Guy MD CHEMISTRY ORDERABLES Final Resul t [facility] CLIA# [id number] [place] [address] documented in this encounter Visit Diagnoses Not on filedocumented in this encounter
--- OUTSIDE RECORDS SUMMARY | 2025-09-22 18:03 | XMS_ITS | Encounter Summary ---
Author Organization [facility] Address [address] [place] [address] Care Team Providers Care Yarn Spooler Name Role Phone Karime Aguilera RN, Haresh K MD Primary Care Provider [phone] Reason for Visit * Reason Onset Date Comments Question 01/18/2025 Encounter Details Date Type Department Care Team (Late st Contact Info) Description 01/18/2025 Telephone [facility] - DIRECTOR RADIATION ONCOLOGY [address] [facility] [address] [place] [address] Christy Khan MD [address] [facility] [address] [place] [address] Question Social History Tobacco Use [...] encounter Miscellaneous Notes * Telephone Encounter - eLna Aguilar, RN - 01/18/2025 12:56 PM CST Returned Nu's phone call. Left message asking her to return our call. ESSIONAL SERVICES MANAGER * Telephone Encounter - Cristal Myers - 01/18/2025 12:48 PM CST [facility] nurse calling giving a report on patient from her visit today.. she is having burning with urination at least 10 + times daily.. pt was unable to give a specimen while she was there.. and was informed to call the office CB# [phone] ESSIONAL SERVICES MANAGER documented in this encounter Plan of Treatment Not on file documented as of this encounter Visit Diagnoses Not on filedocumented in this encounter Care Teams Yarn Spooler Relationship Specialty Start Date End Date Gurvinder Renteria MD [address] [place] [address] PCP - General 01/01/22 Karime Aguilera RN 05/07/18 documented as of this encounter
--- OUTSIDE RECORDS SUMMARY | 2025-09-22 18:03 | XMS_ITS | Encounter Summary ---
Author Organization [facility] Address [address] [place] [address] Care Team Providers Care Stage Hand Name Role Phone Unavailable Primary Care Provider Unavailabl e Encounter Details Date Type Department Care Team (Late st Contact Info) Description 05/19/2021 Lab Requisition [facility] Laboratory Services [address] [place] [address] [facility], External Provider [address] [place] [address] Social History Tobacco Use Types Packs/Day Years [...] CDT 05/19/2021 3:49 AM CDT External Provider [facility] HEMATOLOGY ORDERABLES Fin al Result [facility] CLIA# [id number] [place] [address] * (ABNORMAL) LACTIC ACID (05/19/2021 3:20 AM CDT) LACTIC ACID 4.5(H) <=2.0 mmol/L 05/19/2021 4:19 AM CDT [facility] Blood Collection / Unknown 05/19/2021 3:20 AM CDT 05/19/2021 3:49 AM CDT External Provider [facility] CHEMISTRY ORDERABLES Jennie l Result [facility] CLIA# [id number] [place] [address] * PTT (05/19/2021 3:20 AM CDT) PTT 23.8 23.1 - 37.1 seconds 05/19/2021 4:12 AM CDT [facility] Blood Collection / Unknown 05/19/2021 3:20 AM CDT 05/19/2021 3:49 AM CDT External Provider [facility] HEMATOLOGY ORDERABLES Fin al Result [facility] LABORATORY [facility] CLIA# [id number] [place] [address] * (ABNORMAL) CBC WITH DIFFERENTIAL (05/19/2021 3:20 AM CDT) WBC 26.7(H) 4.5 - 10.5 K/uL 05/19/2021 4:03 AM CDT [facility] LABORATORY SERVICES [facility] RBC 2.46(L) 3.90 - 4.90 M/uL 05/19/2021 4:03 AM CDT [facility] LABORATORY SERVICES [facility] HEMOGLOBIN 6.9(LL) 11.8 - 14.8 g/dL 05/19/2021 4:03 AM CDT [facility] LABORATORY SERVICES [facility] HEMATOCRIT 22.1(L) 35.5 - 44.0 % 05/19/2021 4:03 AM CDT [facility] LABORATORY [facility] MCV 89.7 82.0 - 99.0 fL 05/19/2021 4:03 AM CDT [facility] LABORATORY [facility] MCH 27.8 27.8 - 34.5 pg 05/19/2021 4:03 AM CDT [facility] LABORATORY [facility] MCHC 31.0(L) 32.5 - 35.5 g/dL 05/19/2021 4:03 AM CDT [facility] LABORATORY [facility] RDW 15.4(H) 11.5 - 14.5 % 05/19/2021 4:03 AM CDT [facility] LABORATORY SERVICES [facility] PLATELETS 329 160 - 420 K/uL 05/19/2021 4:03 AM CDT [facility] LABORATORY SERVICES [facility] MPV 8.8 8.7 - 12.7 fL 05/19/2021 4:03 AM CDT [facility] LABORATORY SERVICES [facility] NEUTROPHILS 57 % 05/19/2021 4:03 AM CDT [facility] LABORATORY SERVICES [facility] LYMPHOCYTES 30 % 05/19/2021 4:03 AM CDT [facility] LABORATORY SERVICES [facility] MONOCYTES 10 % 05/19/2021 4:03 AM CDT [facility] LABORATORY SERVICES [facility] EOSINOPHILS 2 % 05/19/2021 4:03 AM CDT [facility] LABORAT[facility] BASOPHILS 0 % 05/19/2021 4:03 AM CDT [facility] LAB[facility] NEUTROPHIL ABSOLUTE 15.30(H) 1.90 - 7.00 K/uL 05/19/2021 4:03 AM CDT [facility] LABORATORY [facility] LYMPHOCYTE ABSOLUTE 8.10(H) 0.70 - 4.50 K/uL 05/19/2021 4:03 AM CDT [facility] LABOR[facility] MONOCYTE ABSOLUTE 2.60(H) 0.10 - 1.30 K/uL 05/19/2021 4:03 AM CDT [facility] LABORATORY SERVICES [facility] EOSINOPHIL ABSOLUTE 0.60 0.00 - 0.70 K/uL 05/19/2021 4:03 AM CDT [facility] LABORATORY SERVICES [facility] BASOPHILS ABSOLUTE 0.10 0.00 - 0.20 K/uL 05/19/2021 4:03 AM CDT [facility] Blood Collection / Unknown 05/19/2021 3:20 AM CDT 05/19/2021 3:49 AM CDT us External Provider [facility] HEMATOLOGY ORDERABLES Fin al Result [facility] CLIA# [id number] [place] [address] * (ABNORMAL) COMPREHENSIVE METABOLIC PANEL (05/19/2021 3:20 AM CDT) SODIUM 134(L) 136 - 145 mmol/L 05/19/2021 4:26 AM CDT [facility] POTASSIUM 6.6(HH) 3.4 - 5.1 mmol/L 05/19/2021 4:26 AM CDT [facility] LAB[facility] CHLORIDE 99 98 - 107 mmol/L 05/19/2021 4:26 AM CDT [facility] CO2 18(L) 22 - 29 mmol/L 05/19/2021 4:26 AM CDT [facility] CALCIUM 8.7 8.6 - 10.4 mg/dL 05/19/2021 4:26 AM [facility] BUN 64(H) 6 - 20 mg/dL 05/19/2021 4:26 AM [facility] CREATININE 4.16(H) 0.51 - 0.95 mg/dL 05/19/2021 4:26 AM [facility] GLUCOSE 280(H) 74 - 99 mg/dL 05/19/2021 4:26 AM [facility] TOTAL PROTEIN 6.6 6.3 - 8.7 g/dL 05/19/2021 4:26 AM [facility] ALBUMIN 2.5(L) 3.5 - 5.2 g/dL 05/19/2021 4:26 AM [facility] BILIRUBIN TOTAL 0.2(L) 0.3 - 1.2 mg/dL 05/19/2021 4:26 AM [facility] ALKALINE PHOSPHATASE 94 40 - 150 U/L 05/19/2021 4:26 AM [facility] AST 31 0 - 33 U/L 05/19/2021 4:26 AM [facility] ALT 19 0 - 33 U/L 05/19/2021 4:26 AM [facility] GFR 11 mL/min/1.7 3 sq meter 05/19/2021 4:26 AM [facility] mL/min/1.7 3 sq meter 05/19/2021 4:26 AM [facility] ANION GAP 17(H) 8 - 16 mmol/L 05/19/2021 4:26 AM CDT [facility] Blood Collection / Unknown 05/19/2021 3:20 AM CDT 05/19/2021 3:49 AM CDT us External Provider [facility] CHEMISTRY ORDERABLES Jennie painter Result [facility] CLIA# [id number] [place] [address] documented in this encounter Visit Diagnoses Not on filedocumented in this encounter
--- OUTSIDE RECORDS SUMMARY | 2025-09-22 18:03 | XMS_ITS | Encounter Summary ---
Author Organization [facility] Address [address] [place] [address] Care Team Providers Care Kiln Operator Name Role Phone Unavailable Primary Care Provider Unavailabl e Encounter Details Date Type Department Care Team (Late st Contact Info) Description 05/16/2021 Lab Requisition [facility] Laboratory Services [address] [place] [address] [place] [address] [place] [address] Social History Tobacco Use Types [...] 145 mmol/L 05/16/2021 12:14 PM CDT [facility] LABORATORY [facility] POTASSIUM 4.9 3.4 - 5.1 mmol/L 05/16/2021 12:14 PM CDT [facility] LABORATORY [facility] CHLORIDE 99 98 - 107 mmol/L 05/16/2021 12:14 PM CDT [facility] CO2 23 22 - 29 mmol/L 05/16/2021 12:14 PM CDT [facility] CALCIUM 8.6 8.6 - 10.4 mg/dL 05/16/2021 12:14 PM CDT [facility] BUN 27(H) 6 - 20 mg/dL 05/16/2021 12:14 PM CDT [facility] CREATININE 2.53(H) 0.51 - 0.95 mg/dL 05/16/2021 12:14 PM CDT [facility] GLUCOSE 126(H) 74 - 99 mg/dL 05/16/2021 12:14 PM T [facility] GFR 19 mL/min/1.7 3 sq meter 05/16/2021 12:14 PM T [facility] Comment: eGFR [...] 3 sq meter 05/16/2021 12:14 PM CDT [facility] ANION GAP 14 8 - 16 mmol/L 05/16/2021 12:14 PM CDT [facility] Blood 05/16/2021 3:00 AM CDT 05/16/2021 11:44 AM CDT us Nargis Guy MD CHEMISTRY ORDERABLES Final Resul t [facility] CLIA# [id number] [place] [address] documented in this encounter Visit Diagnoses Not on filedocumented in this encounter
--- OUTSIDE RECORDS SUMMARY | 2025-09-22 18:03 | XMS_ITS | Encounter Summary ---
Author Organization [facility] Address [address] [place] [address] Care Team Providers Care Coiled Coil Inspector Name Role Phone Karime Aguilera RN, Haresh K MD Primary Care Provider Reason for Visit * Reason Onset Date Comments Question 10/29/2023 Encounter Details Date Type Department Care Team (Late st Contact Info) Description 10/29/2023 Telephone [facility] - POWERED BRIDGE SPECIALIST [address] [facility] [address] [place] [address] Christy Khan MD [address] [facility] [address] [place] [address] Question Social History Tobacco Use [...] Yesenia Shin RN - 10/29/2023 1:16 PM FABRICATION WELDER RN returned pt call & gathered further [...] pt's provider MD Alonso of above issues. ICATION WELDER * Telephone Encounter - Ferny Pierre - 10/29/2023 12:40 PM CST Patient called stating she has a potential yeast infection and wanted to see about getting a prescription. Offered patient an appt, she preferred Dr Khan, put her down for next available on 11/26. ICATION WELDER documented in this encounter Plan of Treatment Not on file documented as of this encounter Visit Diagnoses Not on filedocumented in this encounter Care Teams Coiled Coil Inspector Relationship Specialty Start Date End Date Gurvinder Renteria MD [address] [place] [address] PCP - General 01/01/22 Karime Aguilera, RN 05/07/18 documented as of this encounter
--- OUTSIDE RECORDS SUMMARY | 2025-09-22 18:03 | XMS_ITS | Clinical Summary ---
Author Organization [facility] Address [facility] [place] [address] Care Team Providers Care Resort Keeper Name Role Phone Unavailable Primary Care Provider [...]
--- OUTSIDE RECORDS SUMMARY | 2025-09-22 18:03 | XMS_ITS | Encounter Summary ---
Author Organization [facility] Address [address] [place] [address] Care Team Providers Care Shot Dropper Name Role Phone Unavailable Primary Care Provider Unavailabl e Encounter Details Date Type Department Care Team (Late st Contact Info) Description 07/11/2021 Lab Requisition [facility] Laboratory Services [address] [place] [address] [place] [address] [place] [address] Social History Tobacco Use [...] - 10.5 K/uL 07/11/2021 9:11 AM CDT [facility] LABORATORY SERVICES [facility] RBC 3.85(L) 3.90 - 4.90 M/uL 07/11/2021 9:11 AM CDT [facility] LABORATORY [facility] HEMOGLOBIN 10.5(L) 11.8 - 14.8 g/dL 07/11/2021 9:11 AM CDT [facility] LABORATORY [facility] HEMATOCRIT 32.4(L) 35.5 - 44.0 % 07/11/2021 [facility] MCV 84.0 82.0 - 99.0 fL 07/11/2021 9:11 AM CDT [facility] LABORATORY [facility] MCH 27.1(L) 27.8 - 34.5 pg 07/11/2021 9:11 AM CDT [facility] LABORATORY [facility] MCHC 32.3(L) 32.5 - 35.5 g/dL 07/11/2021 9:11 AM CDT [facility] LABORATORY SERVICES [facility] RDW 15.2(H) 11.5 - 14.5 % 07/11/2021 9:11 AM CDT [facility] LABORATORY [facility] PLATELETS 404 160 - 420 K/uL 07/11/2021 9:11 AM CDT [facility] LABORATORY [facility] MPV 8.0(L) 8.7 - 12.7 fL 07/11/2021 9:11 AM CDT [facility] LABORATORY SERVICES [facility] NEUTROPHILS 49 % 07/11/2021 9:11 AM CDT [facility] LABORATORY SERVICES [facility] LYMPHOCYTES 37 % 07/11/2021 9:11 AM CDT [facility] LABORATORY SERVICES [facility] MONOCYTES 8 % 07/11/2021 9:11 AM CDT [facility] LABORATORY SERVICES [facility] EOSINOPHILS 5 % 07/11/2021 9:11 AM CDT [facility] LABORATORY SERVICES [facility] BASOPHILS 1 % 07/11/2021 9:11 AM CDT [facility] LABORATORY SERVICES [facility] NEUTROPHIL ABSOLUTE 3.90 1.90 - 7.00 K/uL 07/11/2021 9:11 AM CDT [facility] LABORATORY [facility] LYMPHOCYTE ABSOLUTE 3.00 0.70 - 4.50 K/uL 07/11/2021 9:11 AM CDT [facility] LABORATORY SERVICES [facility] MONOCYTE ABSOLUTE 0.60 0.10 - 1.30 K/uL 07/11/2021 9:11 AM CDT [facility] LABORATORY [facility] EOSINOPHIL ABSOLUTE 0.40 0.00 - 0.70 K/uL 07/11/2021 9:11 AM CDT [facility] LABORATORY SERVICES - [facility] BASOPHILS ABSOLUTE 0.10 0.00 - 0.20 K/uL 07/11/2021 9:11 AM CDT [facility] LABORATORY [facility] Blood Collection / Unknown 07/11/2021 5:00 AM CDT 07/11/2021 8:43 AM CDT us Nargis Guy MD HEMATOLOGY ORDERABLES Final Resu lt [facility] CL[facility]# [id number] [place] [address] documented in this encounter Visit Diagnoses Not on filedocumented in this encounter
--- OUTSIDE RECORDS SUMMARY | 2025-09-22 18:03 | XMS_ITS | Encounter Summary ---
Author Organization [facility] Address [address] [place] [address] Care Team Providers Care Egg Producer Name Role Phone Unavailable Primary Care Provider Unavailabl e Encounter Details Date Type Department Care Team (Late st Contact Info) Description 06/30/2021 Lab Requisition [facility] Laboratory Services [address] [place] [address] [place] [address] [place] [address] Social History Tobacco Use Types [...] - 10.5 K/uL 06/30/2021 11:22 AM CDT [facility] RBC 3.44(L) 3.90 - 4.90 M/uL 06/30/2021 11:22 AM CDT [facility] HEMOGLOBIN 9.4(L) 11.8 - 14.8 g/dL 06/30/2021 11:22 AM CDFORMERLY [facility] HEMATOCRIT 29.4(L) 35.5 - 44.0 % 06/30/2021 11:22 AM CDT [facility] MCV 85.4 82.0 - 99.0 fL 06/30/2021 11:22 AM CDT [facility] MCH 27.3(L) 27.8 - 34.5 pg 06/30/2021 11:22 AM CDFORMERLY [facility] MCHC 32.0(L) 32.5 - 35.5 g/dL 06/30/2021 11:22 AM CDFORMERLY [facility] RDW 15.6(H) 11.5 - 14.5 % 06/30/2021 11:22 AM CDT [facility] PLATELETS 408 160 - 420 K/uL 06/30/2021 11:22 AM CDFORMERLY [facility] MPV 7.9(L) 8.7 - 12.7 fL 06/30/2021 11:22 AM CDT [facility] NEUTROPHILS 53 % 06/30/2021 11:22 AM CDT [facility] LYMPHOCYTES 33 % 06/30/2021 11:22 AM CDT [facility] MONOCYTES 8 % 06/30/2021 11:22 AM CDT [facility] EOSINOPHILS 5 % 06/30/2021 11:22 AM CDT [facility] BASOPHILS 1 % 06/30/2021 11:22 AM CDT [facility] NEUTROPHIL ABSOLUTE 3.50 1.90 - 7.00 K/uL 06/30/2021 11:22 AM CDT [facility] LYMPHOCYTE ABSOLUTE 2.20 0.70 - 4.50 K/uL 06/30/2021 11:22 AM CDT [facility] MONOCYTE ABSOLUTE 0.50 0.10 - 1.30 K/uL 06/30/2021 11:22 AM CDT [facility] EOSINOPHIL ABSOLUTE 0.30 0.00 - 0.70 K/uL 06/30/2021 11:22 AM CDT [facility] BASOPHILS ABSOLUTE 0.10 0.00 - 0.20 K/uL 06/30/2021 11:22 AM CDT [facility] Blood Collection / Unknown 06/30/2021 3:45 AM CDT 06/30/2021 10:45 AM CDT Nargis Guy MD HEMATOLOGY ORDERABLES Final Resu lt [facility] CLIA# [id number] [place] [address] * (ABNORMAL) COMPREHENSIVE METABOLIC PANEL (06/30/2021 3:45 AM CDT) SODIUM 139 136 - 145 mmol/L 06/30/2021 11:40 AM CDT [facility] POTASSIUM 4.3 3.4 - 5.1 mmol/L 06/30/2021 11:40 AM CDT [facility] CHLORIDE 103 98 - 107 mmol/L 06/30/2021 11:40 AM CDT [facility] CO2 23 22 - 29 mmol/L 06/30/2021 11:40 AM CDT [facility] CALCIUM 8.7 8.6 - 10.4 mg/dL 06/30/2021 11:40 AM CDT [facility] BUN 12 6 - 20 mg/dL 06/30/2021 11:40 AM CDT [facility] CREATININE 0.89 0.51 - 0.95 mg/dL 06/30/2021 11:40 AM CDT [facility] GLUCOSE 107(H) 74 - 99 mg/dL 06/30/2021 11:40 AM CDT [facility] TOTAL PROTEIN 6.0(L) 6.3 - 8.7 g/dL 06/30/2021 11:40 AM [facility] ALBUMIN 2.7(L) 3.5 - 5.2 g/dL 06/30/2021 11:40 AM T [facility] BILIRUBIN TOTAL <0.2(L) 0.2 - 1.1 mg/dL 06/30/2021 11:40 AM T [facility] ALKALINE PHOSPHATASE 110 40 - 150 U/L 06/30/2021 11:40 AM T [facility] AST 23 0 - 33 U/L 06/30/2021 11:40 AM [facility] ALT 18 0 - 33 U/L 06/30/2021 11:40 AM [facility] GFR >60 mL/min/1.7 3 sq meter 06/30/2021 11:40 AM T [facility] Comment: eGFR has not been validated [...] 3 sq meter 06/30/2021 11:40 AM CDT [facility] ANION GAP 13 8 - 16 mmol/L 06/30/2021 11:40 AM T [facility] Blood Collection / Unknown 06/30/2021 3:45 AM CDT 06/30/2021 10:45 AM CDT us Nargis Guy MD CHEMISTRY ORDERABLES Final Resul t [facility] CLIA# [id number] [place] [address] documented in this encounter Visit Diagnoses Not on filedocumented in this encounter
--- OUTSIDE RECORDS SUMMARY | 2025-09-22 18:03 | XMS_ITS | Encounter Summary ---
Author Organization [facility] Address [address] [place] [address] Care Team Providers Care Nutrition Tech Name Role Phone Unavailable Primary Care Provider Unavailabl e Encounter Details Date Type Department Care Team (Late st Contact Info) Description 07/19/2021 Lab Requisition [facility] Laboratory Services [address] [place] [address] [place] [address] [place] [address] Social History Tobacco Use Types [...] - 10.5 K/uL 07/19/2021 11:50 AM CDT [facility] RBC 3.66(L) 3.90 - 4.90 M/uL 07/19/2021 11:50 AM CDT [facility]ORATORY [facility] HEMOGLOBIN 9.6(L) 11.8 - 14.8 g/dL 07/19/2021 11:50 AM CDT [facility] LABORATORY SERVICES [facility] HEMATOCRIT 30.5(L) 35.5 - 44.0 % 07/19/2021 11:50 AM CDT [facility] LABORATORY SERVICES [facility] MCV 83.5 82.0 - 99.0 fL 07/19/2021 11:50 AM CDT [facility] LABORATORY SERVICES [facility] MCH 26.4(L) 27.8 - 34.5 pg 07/19/2021 11:50 AM CDT [facility] LABORATORY SERVICES [facility] MCHC 31.6(L) 32.5 - 35.5 g/dL 07/19/2021 11:50 AM CDT [facility] LABORATORY [facility] RDW 15.6(H) 11.5 - 14.5 % 07/19/2021 11:50 AM CDT [facility] LABORATORY SERVICES [facility] PLATELETS 383 160 - 420 K/uL 07/19/2021 11:50 AM CDT [facility] LABORATORY SERVICES [facility] MPV 8.0(L) 8.7 - 12.7 fL 07/19/2021 11:50 AM CDT [facility] LABORATORY SERVICES [facility] NEUTROPHILS 52 % 07/19/2021 11:50 AM CDT [facility] LABORATORY SERVICES [facility] LYMPHOCYTES 36 % 07/19/2021 11:50 AM CDT [facility] LABORATORY SERVICES [facility] MONOCYTES 6 % 07/19/2021 11:50 AM CDT [facility] LABORATORY SERVICES [facility] EOSINOPHILS 5 % 07/19/2021 11:50 AM CDT [facility] LABORATORY SERVICES [facility] BASOPHILS 1 % 07/19/2021 11:50 AM CDT [facility] LABORATORY SERVICES [facility] NEUTROPHIL ABSOLUTE 3.80 1.90 - 7.00 K/uL 07/19/2021 11:50 AM CDT [facility] LABORATORY SERVICES [facility] LYMPHOCYTE ABSOLUTE 2.70 0.70 - 4.50 K/uL 07/19/2021 11:50 AM CDT [facility] LABORATORY [facility] MONOCYTE ABSOLUTE 0.50 0.10 - 1.30 K/uL 07/19/2021 11:50 AM CDT [facility] LABORATORY SERVICES [facility] EOSINOPHIL ABSOLUTE 0.30 0.00 - 0.70 K/uL 07/19/2021 11:50 AM CDT [facility] LABORATORY SERVICES [facility] BASOPHILS ABSOLUTE 0.10 0.00 - 0.20 K/uL 07/19/2021 11:50 AM CDT [facility] LABORATORY [facility] Blood Collection / Unknown 07/19/2021 3:23 AM CDT 07/19/2021 11:47 AM CDT Nargis Guy MD HEMATOLOGY ORDERABLES Final Resu lt [facility] CLIA# [id number] [place] [address] * (ABNORMAL) COMPREHENSIVE METABOLIC PANEL (07/19/2021 3:23 AM CDT) SODIUM 138 136 - 145 mmol/L 07/19/2021 12:19 PM CDT [facility] POTASSIUM 4.4 3.4 - 5.1 mmol/L 07/19/2021 12:19 PM CDT [facility] LABORATORY [facility] CHLORIDE 101 98 - 107 mmol/L 07/19/2021 12:19 PM CDT [facility] LABORATORY [facility] CO2 24 22 - 29 mmol/L 07/19/2021 12:19 PM CDT [facility] LABORATORY [facility] CALCIUM 9.2 8.6 - 10.4 mg/dL 07/19/2021 12:19 PM CDT [facility] LABORATORY [facility] BUN 18 6 - 20 mg/dL 07/19/2021 12:19 PM CDT [facility] LABORATORY [facility] CREATININE 0.98(H) 0.51 - 0.95 mg/dL 07/19/2021 12:19 PM CDT [facility] LABORATORY [facility] GLUCOSE 102(H) 74 - 99 mg/dL 07/19/2021 12:19 PM CDT [facility] TOTAL PROTEIN 6.5 6.3 - 8.7 g/dL 07/19/2021 12:19 PM T [facility] ALBUMIN 3.1(L) 3.5 - 5.2 g/dL 07/19/2021 12:19 PM [facility] BILIRUBIN TOTAL <0.2(L) 0.2 - 1.1 mg/dL 07/19/2021 12:19 PM [facility] ALKALINE PHOSPHATASE 96 40 - 150 U/L 07/19/2021 12:19 PM [facility] AST 12 0 - 33 U/L 07/19/2021 12:19 PM [facility] ALT 8 0 - 33 U/L 07/19/2021 12:19 PM [facility] GFR 58 mL/min/1.7 3 sq meter 07/19/2021 12:19 PM [facility] Comment: [...] 3 sq meter 07/19/2021 12:19 PM CDT [facility] ANION GAP 13 8 - 16 mmol/L 07/19/2021 12:19 PM T [facility] Blood Collection / Unknown 07/19/2021 3:23 AM CDT 07/19/2021 11:48 AM CDT us Nargis Guy MD CHEMISTRY ORDERABLES Final Resul t [facility] CLIA# [id number] [place] [address] documented in this encounter Visit Diagnoses Not on filedocumented in this encounter
--- OUTSIDE RECORDS SUMMARY | 2025-09-22 18:03 | XMS_ITS | Encounter Summary ---
Author Organization [facility] Address [address] [place] [address] Care Team Providers Care Regional Environmental Manager Name Role Phone Unavailable Primary Care Provider Unavailabl e Encounter Details Date Type Department Care Team (Late st Contact Info) Description 06/24/2021 Lab Requisition [facility] Laboratory Services [address] [place] [address] [place] [address] [place] [address] Social History Tobacco Use Types [...] - 10.5 K/uL 06/24/2021 6:33 AM CDT [facility] LABORAT[facility] RBC 3.59(L) 3.90 - 4.90 M/uL 06/24/2021 6:33 AM CDT [facility] HEMOGLOBIN 9.8(L) 11.8 - 14.8 g/dL 06/24/2021 6:33 AM CDT [facility] HEMATOCRIT 30.2(L) 35.5 - 44.0 % 06/24/2021 6:33 AM CDT [facility]OR[facility] MCV 84.3 82.0 - 99.0 fL 06/24/2021 6:33 AM CDT [facility] MCH 27.3(L) 27.8 - 34.5 pg 06/24/2021 6:33 AM CDT [facility] MCHC 32.4(L) 32.5 - 35.5 g/dL 06/24/2021 6:33 AM CDT [facility] RDW 15.9(H) 11.5 - 14.5 % 06/24/2021 6:33 AM CDT [facility] PLATELETS 353 160 - 420 K/uL 06/24/2021 6:33 AM CDT [facility] MPV 8.2(L) 8.7 - 12.7 fL 06/24/2021 6:33 AM CDT [facility] NEUTROPHILS 54 % 06/24/2021 6:33 AM CDT [facility]ORY [facility] LYMPHOCYTES 34 % 06/24/2021 6:33 AM CDT [facility] LAB[facility] MONOCYTES 8 % 06/24/2021 6:33 AM CDT [facility] LAB[facility] EOSINOPHILS 4 % 06/24/2021 6:33 AM CDT [facility] LAB[facility] BASOPHILS 1 % 06/24/2021 6:33 AM CDT [facility] NEUTROPHIL ABSOLUTE 3.60 1.90 - 7.00 K/uL 06/24/2021 6:33 AM CDT [facility] LABOR[facility] LYMPHOCYTE ABSOLUTE 2.20 0.70 - 4.50 K/uL 06/24/2021 6:33 AM CDT [facility] MONOCYTE ABSOLUTE 0.50 0.10 - 1.30 K/uL 06/24/2021 6:33 AM CDT [facility] LABORATORY SERVICES [facility] EOSINOPHIL ABSOLUTE 0.20 0.00 - 0.70 K/uL 06/24/2021 6:33 AM CDT [facility] LABORATORY SERVICES [facility] BASOPHILS ABSOLUTE 0.10 0.00 - 0.20 K/uL 06/24/2021 6:33 AM CDT [facility] Blood 06/24/2021 4:30 AM CDT 06/24/2021 6:18 AM CDT us Nargis Guy MD HEMATOLOGY ORDERABLES Final Resu lt [facility] CLIA# [id number] [place] [address] * (ABNORMAL) COMPREHENSIVE METABOLIC PANEL (06/24/2021 4:30 AM CDT) SODIUM 140 136 - 145 mmol/L 06/24/2021 6:58 AM CDT [facility] POTASSIUM 4.6 3.4 - 5.1 mmol/L 06/24/2021 6:58 AM CDT [facility] LABORATORY [facility] CHLORIDE 105 98 - 107 mmol/L 06/24/2021 6:58 AM CDT [facility] CO2 22 22 - 29 mmol/L 06/24/2021 6:58 AM CDT [facility] CALCIUM 8.9 8.6 - 10.4 mg/dL 06/24/2021 6:58 AM CDT [facility] LABOR[facility] BUN 11 6 - 20 mg/dL 06/24/2021 6:58 AM CDT [facility] CREATININE 0.93 0.51 - 0.95 mg/dL 06/24/2021 6:58 AM CDT [facility] GLUCOSE 97 74 - 99 mg/dL 06/24/2021 6:58 AM CDT [facility] LABORATORY [facility] TOTAL PROTEIN 6.3 6.3 - 8.7 g/dL 06/24/2021 6:58 AM CDT [facility] ALBUMIN 2.7(L) 3.5 - 5.2 g/dL 06/24/2021 6:58 AM T [facility] BILIRUBIN TOTAL 0.2(L) 0.3 - 1.2 mg/dL 06/24/2021 6:58 AM T [facility] ALKALINE PHOSPHATASE 110 40 - 150 U/L 06/24/2021 6:58 AM CDT [facility] AST 24 0 - 33 U/L 06/24/2021 6:58 AM T [facility] ALT 20 0 - 33 U/L 06/24/2021 6:58 AM T [facility] GFR >60 mL/min/1.7 3 sq meter 06/24/2021 6:58 AM T [facility] Comment: eGFR has not [...] 3 sq meter 06/24/2021 6:58 AM CDT [facility] ANION GAP 13 8 - 16 mmol/L 06/24/2021 6:58 AM T [facility] Blood 06/24/2021 4:30 AM CDT 06/24/2021 6:18 AM CDT us Nargis Guy MD CHEMISTRY ORDERABLES Final Resul t [facility] CLIA# [id number] [place] [address] documented in this encounter Visit Diagnoses Not on filedocumented in this encounter
--- OUTSIDE RECORDS SUMMARY | 2025-09-22 18:03 | XMS_ITS | Encounter Summary ---
Author Organization [facility] Address [address] [place] [address] Care Team Providers Care Accounting Support Specialist Name Role Phone Unavailable Primary Care Provider Unavailabl e Encounter Details Date Type Department Care Team (Late st Contact Info) Description 05/17/2021 Lab Requisition [facility] Laboratory Services [id number] [place] [address] [place] [address] [place] [address] Social History Tobacco Use Types [...] - 10.5 K/uL 05/17/2021 10:31 AM CDT [facility] LABORATORY SERVICES [facility] RBC 2.72(L) 3.90 - 4.90 M/uL 05/17/2021 10:31 AM CDT [facility] LABORATORY SERVICES [facility] HEMOGLOBIN 7.9(L) 11.8 - 14.8 g/dL 05/17/2021 10:31 AM CDT [facility] LABORATORY SERVICES [facility] HEMATOCRIT 23.6(L) 35.5 - 44.0 % 05/17/2021 10:31 AM CDT [facility] LABORATORY SERVICES [facility] MCV 86.6 82.0 - 99.0 fL 05/17/2021 10:31 AM CDT [facility] LABORATORY SERVICES [facility] MCH 28.9 27.8 - 34.5 pg 05/17/2021 10:31 AM CDT [facility] LABORATORY SERVICES [facility] MCHC 33.3 32.5 - 35.5 g/dL 05/17/2021 10:31 AM CDT [facility] LABORATORY SERVICES [facility] RDW 14.7(H) 11.5 - 14.5 % 05/17/2021 10:31 AM CDT [facility] LABORATORY SERVICES [facility] PLATELETS 188 160 - 420 K/uL 05/17/2021 10:31 AM CDT [facility] LABORATORY SERVICES [facility] MPV 8.8 8.7 - 12.7 fL 05/17/2021 10:31 AM CDT [facility] LABORATORY SERVICES [facility] NEUTROPHILS 59 % 05/17/2021 10:31 AM CDT [facility] LABORATORY SERVICES [facility] LYMPHOCYTES 21 % 05/17/2021 10:31 AM CDT [facility] LABORATORY SERVICES [facility] MONOCYTES 14 % 05/17/2021 10:31 AM CDT [facility] LABORATORY SERVICES [facility] EOSINOPHILS 5 % 05/17/2021 10:31 AM CDT [facility] LABORATORY SERVICES [facility] BASOPHILS 1 % 05/17/2021 10:31 AM CDT [facility] LABORATORY SERVICES [facility] NEUTROPHIL ABSOLUTE 5.80 1.90 - 7.00 K/uL 05/17/2021 10:31 AM CDT [facility] LABORATORY SERVICES [facility] LYMPHOCYTE ABSOLUTE 2.10 0.70 - 4.50 K/uL 05/17/2021 10:31 AM CDT [facility] LABORATORY SERVICES [facility] MONOCYTE ABSOLUTE 1.30 0.10 - 1.30 K/uL 05/17/2021 10:31 AM CDT [facility] LABORATORY SERVICES - [facility] EOSINOPHIL ABSOLUTE 0.50 0.00 - 0.70 K/uL 05/17/2021 10:31 AM CDT [facility] LABORATORY SERVICES - [facility] BASOPHILS ABSOLUTE 0.10 0.00 - 0.20 K/uL 05/17/2021 10:31 AM CDT [facility] LABORATORY [facility] Blood Collection / Unknown 05/17/2021 5:20 AM CDT 05/17/2021 10:01 AM CDT us Nargis Guy MD HEMATOLOGY ORDERABLES Final Resu lt [facility] LABORATORY SERVICES [facility] CLIA# [id number] [place] [address] documented in this encounter Visit Diagnoses Not on filedocumented in this encounter
--- OUTSIDE RECORDS SUMMARY | 2025-09-22 18:04 | XMS_ITS | Encounter Summary ---
Author Organization [facility] Address [address] [place] [address] Care Team Providers Care Woodworking Machine Offbearer Name Role Phone Unavailable Primary Care Provider Unavailabl e Encounter Details Date Type Department Care Team (Late st Contact Info) Description 06/04/2021 Lab Requisition [facility] Laboratory Services [address] [place] [address] [place] [address] [place] [address] Social History Tobacco Use Types [...] - 30 mm/Hr 06/04/2021 9:54 AM CDT [facility] Blood Collection / Unknown 06/04/2021 4:55 AM CDT 06/04/2021 9:41 AM CDT us Nargis Guy MD HEMATOLOGY ORDERABLES Final Resu lt [facility] CLIA# [id number] [place] [address] * (ABNORMAL) RETICULOCYTES (06/04/2021 4:55 AM CDT) RETICULOCYTES 3.2(H) 0.4 - 2.0 % 06/04/2021 9:49 AM CDT [facility] IMMATURE RETIC FRACTION 0.5 % 06/04/2021 9:49 AM CDT [facility] RETICULOCYTE, ABSOLUTE 0.1121 0.0250 - 0.1480 10e6/uL 06/04/2021 9:49 AM CDT [facility] Blood Collection / Unknown 06/04/2021 4:55 AM CDT 06/04/2021 9:41 AM CDT us Nargis Guy MD HEMATOLOGY ORDERABLES [id number] [place] [address] * (ABNORMAL) PREALBUMIN (06/04/2021 4:55 AM CDT) Pathologist [facility] PREALBUMIN 13(L) 20 - 40 mg/dL 06/04/2021 2:28 PM CDT [facility] Blood Collection / Unknown 06/04/2021 4:55 AM CDT 06/04/2021 9:42 AM CDT Nargis Guy MD CHEMISTRY ORDERABLES Final Resul t Performing Organization Address City/[facility]/ZIP Co de Phone Number [facility]# [id number] [address] [place] [address] * (ABNORMAL) IRON, TIBC, AND PERCENT SATURATION (06/04/2021 4:55 AM CDT) [facility] IRON 27(L) 37 - 145 ug/dL 06/04/2021 10:17 AM CDT [facility] TIBC 144(L) 265 - 497 ug/dL 06/04/2021 10:17 AM CDT [facility]OR[facility] IRON % SATURATION 19(L) 20 - 55 % 06/04/2021 10:17 AM CDT [facility] Blood Collection / Unknown 06/04/2021 4:55 AM CDT 06/04/2021 9:42 AM CDT Nargis Guy MD CHEMISTRY ORDERABLES Final Resul t [id number] [place] [address] * HEMOGLOBIN A1C (06/04/2021 4:55 AM CDT) Pathologist [facility] HEMOGLOBIN A1C 5.5 <=5.6 % 06/04/2021 10:29 AM CDT [facility] EST. AVG GLUCOSE, A1C 111 mg/dL 06/04/2021 10:29 AM CDT [facility] Blood Collection / Unknown 06/04/2021 4:55 AM CDT 06/04/2021 10:10 AM CDT Narrative [facility] - 06/04/2021 10:29 AM CDT HGB A1C INTERPRETATION NORMAL: <5.7% PRE-DIABETES: 5.7 - 6.4% DIABETES: 6.5% OR GREATER Nargis Guy MD CHEMISTRY ORDERABLES Final Resul t [facility] CLIA# [id number] [place] [address] * (ABNORMAL) C-REACTIVE PROTEIN (06/04/2021 4:55 AM CDT) Pathologist [facility] CRP 99.3(H) <5.0 mg/L 06/04/2021 10:17 AM CDT [facility] Blood Collection / Unknown 06/04/2021 4:55 AM CDT 06/04/2021 9:42 AM CDT Nargis Guy MD CHEMISTRY ORDERABLES Final Resul t [facility] CLIA# [id number] [place] [address] * (ABNORMAL) CBC WITH DIFFERENTIAL (06/04/2021 4:55 AM CDT) WBC 5.7 4.5 - 10.5 K/uL 06/04/2021 9:49 AM CDT [facility] RBC 3.55(L) 3.90 - 4.90 M/uL 06/04/2021 9:49 AM CDT [facility] Reachable [facility] HEMOGLOBIN 10.2(L) 11.8 - 14.8 g/dL 06/04/2021 9:49 AM CDT [facility] LABORATORY SERVICES [facility] HEMATOCRIT 31.4(L) 35.5 - 44.0 % 06/04/2021 9:49 AM CDT [facility] LABORATORY SERVICES [facility] MCV 88.5 82.0 - 99.0 fL 06/04/2021 9:49 AM CDT [facility] LABORATORY SERVICES [facility] MCH 28.8 27.8 - 34.5 pg 06/04/2021 9:49 AM CDT [facility]ORATORY SERVICES [facility] MCHC 32.6 32.5 - 35.5 g/dL 06/04/2021 9:49 AM CDT [facility] LABORATORY SERVICES [facility] RDW 15.5(H) 11.5 - 14.5 % 06/04/2021 9:49 AM CDT [facility] LABORATORY SERVICES [facility] PLATELETS 288 160 - 420 K/uL 06/04/2021 9:49 AM CDT [facility] LABORATORY SERVICES [facility] MPV 8.5(L) 8.7 - 12.7 fL 06/04/2021 9:49 AM CDT [facility] LABORATORY SERVICES [facility] NEUTROPHILS 53 % 06/04/2021 9:49 AM CDT [facility] LABORATORY SERVICES [facility] LYMPHOCYTES 33 % 06/04/2021 9:49 AM CDT [facility] LABORATORY SERVICES [facility] MONOCYTES 10 % 06/04/2021 9:49 AM CDT [facility] LABORATORY SERVICES [facility] EOSINOPHILS 4 % 06/04/2021 9:49 AM CDT [facility] LABORATORY SERVICES [facility] BASOPHILS 1 % 06/04/2021 9:49 AM CDT [facility] LABORATORY SERVICES [facility] NEUTROPHIL ABSOLUTE 3.00 1.90 - 7.00 K/uL 06/04/2021 9:49 AM CDT [facility] LABORATORY SERVICES [facility] LYMPHOCYTE ABSOLUTE 1.90 0.70 - 4.50 K/uL 06/04/2021 9:49 AM CDT [facility] LABORATORY SERVICES [facility] MONOCYTE ABSOLUTE 0.50 0.10 - 1.30 K/uL 06/04/2021 9:49 AM CDT [facility] LABORATORY SERVICES [facility] EOSINOPHIL ABSOLUTE 0.20 0.00 - 0.70 K/uL 06/04/2021 9:49 AM CDT [facility]ORATORY [facility] BASOPHILS ABSOLUTE 0.10 0.00 - 0.20 K/uL 06/04/2021 9:49 AM CDT [facility] Blood Collection / Unknown 06/04/2021 4:55 AM CDT 06/04/2021 9:41 AM CDT Nargis Guy MD HEMATOLOGY ORDERABLES Final Resu lt [facility] CLIA# [id number] [address] [address] * (ABNORMAL) COMPREHENSIVE METABOLIC PANEL (06/04/2021 4:55 AM CDT) SODIUM 143 136 - 145 mmol/L 06/04/2021 10:17 AM CDT [facility] POTASSIUM 4.0 3.4 - 5.1 mmol/L 06/04/2021 10:17 AM CDT [facility] Reachable [facility] CHLORIDE 107 98 - 107 mmol/L 06/04/2021 10:17 AM CDT [facility] CO2 24 22 - 29 mmol/L 06/04/2021 10:17 AM T [facility] CALCIUM 8.3(L) 8.6 - 10.4 mg/dL 06/04/2021 10:17 AM CDT [facility] BUN 8 6 - 20 mg/dL 06/04/2021 10:17 AM CDT [facility] CREATININE 1.01(H) 0.51 - 0.95 mg/dL 06/04/2021 10:17 AM CDT [facility] GLUCOSE 105(H) 74 - 99 mg/dL 06/04/2021 10:17 AM T [facility] TOTAL PROTEIN 5.7(L) 6.3 - 8.7 g/dL 06/04/2021 10:17 AM CDT [facility]OR[facility] ALBUMIN 2.5(L) 3.5 - 5.2 g/dL 06/04/2021 10:17 AM CDT [facility] BILIRUBIN TOTAL 0.2(L) 0.3 - 1.2 mg/dL 06/04/2021 10:17 AM T [facility] ALKALINE PHOSPHATASE 112 40 - 150 U/L 06/04/2021 10:17 AM T [facility] AST 38(H) 0 - 33 U/L 06/04/2021 10:17 AM CDT [facility] ALT 31 0 - 33 U/L 06/04/2021 10:17 AM T [facility] GFR 56 mL/min/1.7 3 sq meter 06/04/2021 10:17 AM T [facility] Comment: eGFR has [...] 3 sq meter 06/04/2021 10:17 AM CDT [facility] ANION GAP 12 8 - 16 mmol/L 06/04/2021 10:17 AM T [facility] Blood Collection / Unknown 06/04/2021 4:55 AM CDT 06/04/2021 9:42 AM CDT us Nargis Guy MD CHEMISTRY ORDERABLES Final Resul t [facility] CLIA# [id number] [address] [address] documented in this encounter Visit Diagnoses Not on filedocumented in this encounter
--- OUTSIDE RECORDS SUMMARY | 2025-09-22 18:04 | XMS_ITS | Encounter Summary ---
Author Organization [facility] Address [address] [place] [address] Care Team Providers Care Junior Web Designer Name Role Phone Unavailable Primary Care Provider Unavailabl e Encounter Details Date Type Department Care Team (Late st Contact Info) Description 06/11/2021 Lab Requisition [facility] Laboratory Services [address] [place] [address] [place] [address] [place] [address] Social History Tobacco Use Types [...] 06/11/2021 7:56 AM CDT [facility] CLARITY UA Slightly Cloudy(A) Clear 06/11/2021 7:56 AM CDT [facility] - [facility] SPECIFIC GRAVITY UA 1.006 1.003 - 1.035 06/11/2021 7:56 AM CDT [facility] - [facility] PH UA 6.0 5.0 - 8.0 06/11/2021 7:56 AM CDT [facility] LEUKOCYTE ESTERASE UA 3+(A) Negative 06/11/2021 7:56 AM CDT [facility] NITRITE UA Negative Negative 06/11/2021 7:56 AM CDT [facility] PROTEIN UA Negative Negative 06/11/2021 7:56 AM CDT [facility] GLUCOSE UA Negative Negative 06/11/2021 7:56 AM CDT [facility] KETONES UA Negative Negative 06/11/2021 7:56 AM CDT [facility] UROBILINOGEN UA Normal <2.0 mg/dL 7:56 AM CDT [facility] BILIRUBIN UA Negative Negative 06/11/2021 7:56 AM CDT [facility] BLOOD UA 1+(A) Negative 06/11/2021 7:56 AM CDT [facility] WBC UA 11-25(A) 0 - 2 /hpf 06/11/2021 7:56 AM CDT [facility] RBC UA 3-5(A) 0 - 2 /hpf 06/11/2021 7:56 AM CDT [facility] BACTERIA UA Negative Negative /hpf 06/11/2021 7:56 AM CDT [facility] EPITHELIAL CELLS, URINE 0-5 0 - 5 /hpf 06/11/2021 7:56 AM CDT [facility] HYALINE CAST None Seen None Seen, 0-2 /lpf 06/11/2021 7:56 AM CDT [facility] Urine URINE SPECIMEN OBTAINED BY CLEAN CATCH PROCEDURE / Unknown Collection / Unknown 06/11/2021 12:01 AM CDT 06/11/2021 7:42 AM CDT us Nargis Guy MD URINE ORDERABLES Final Result [facility] CLIA# [id number] [place] [address] * URINE CULTURE (06/11/2021 12:01 AM CDT) CULTURE No growth at 24 hours 06/12/2021 1:08 PM CDT [facility] Urine Collection / Unknown 06/11/2021 12:01 AM CDT 06/11/2021 7:42 AM CDT us Nargis Guy MD MICROBIOLOGY - GENERAL ORDERABLE S Final Result Performing Organization Address City/[facility]/ZIP Co de Phone Number [facility] CLIA# [id number] [address] [place] [address] documented in this encounter Visit Diagnoses Not on filedocumented in this encounter
--- OUTSIDE RECORDS SUMMARY | 2025-09-22 18:04 | XMS_ITS | Encounter Summary ---
Author Organization [facility] Address [address] [place] [address] Care Team Providers Care Swager Operator Name Role Phone Unavailable Primary Care Provider Unavailabl e Encounter Details Date Type Department Care Team (Late st Contact Info) Description 06/18/2021 Lab Requisition [facility] Laboratory Services [address] [place] [address] [place] [address] [place] [address] Social History Tobacco Use [...] RATE (06/18/2021 4:15 AM CDT) Pathologist [facility] ESR (SEDIMENTATION RATE) 51(H) 0 - 30 mm/Hr 06/18/2021 10:14 AM CDT [facility]ORAT[facility] Blood Collection / Unknown 06/18/2021 4:15 AM CDT 06/18/2021 8:44 AM CDT Nargis Guy MD HEMATOLOGY ORDERABLES Final Resu lt Performing Organization Address City/[facility]/ZIP Co de Phone Number [facility] CLIA# [id number] [place], [place] [id number] * RETICULOCYTES (06/18/2021 4:15 AM CDT) Pathologist [facility] RETICULOCYTES 2.0 0.4 - 2.0 % 06/18/2021 8:52 AM CDT [facility]OR[facility] IMMATURE RETIC FRACTION 0.6 % 06/18/2021 8:52 AM CDT [facility] RETICULOCYTE, ABSOLUTE 0.0651 0.0250 - 0.1480 10e6/uL 06/18/2021 8:52 AM CDT [facility]ORAT[facility] Blood Collection / Unknown 06/18/2021 4:15 AM CDT 06/18/2021 8:44 AM CDT Nargis Guy MD HEMATOLOGY ORDERABLES Final Resu lt Performing Organization Address City/[facility]/ZIP Co de Phone Number [facility] CLIA# [id number] [place] [address] * (ABNORMAL) PREALBUMIN (06/18/2021 4:15 AM CDT) PREALBUMIN 14(L) 20 - 40 mg/dL 06/18/2021 11:37 AM CDT [facility] Blood Collection / Unknown 06/18/2021 4:15 AM CDT 06/18/2021 8:15 AM CDT Nargis Guy MD CHEMISTRY ORDERABLES Final Resul t [facility] CLIA# [id number] [address] [place] [place] [address] * (ABNORMAL) IRON, TIBC, AND PERCENT SATURATION (06/18/2021 4:15 AM CDT) IRON 34(L) 37 - 145 ug/dL 06/18/2021 8:54 AM CDT [facility]OR[facility] TIBC 146(L) 265 - 497 ug/dL 06/18/2021 8:54 AM CDT [facility] IRON % SATURATION 23 20 - 55 % 06/18/2021 8:54 AM CDT [facility] Blood Collection / Unknown 06/18/2021 4:15 AM CDT 06/18/2021 8:18 AM CDT Nargis Guy MD CHEMISTRY ORDERABLES Final Resul t [facility] CLIA# [id number] [address] [place] [address] * (ABNORMAL) C-REACTIVE PROTEIN (06/18/2021 4:15 AM CDT) CRP 51.3(H) <5.0 mg/L 06/18/2021 8:50 AM CDT [facility] LABORAT[facility] Blood Collection / Unknown 06/18/2021 4:15 AM CDT 06/18/2021 8:18 AM CDT Nargis Guy MD CHEMISTRY ORDERABLES Final Resul t [facility] CLIA# [id number] [place] [address] * (ABNORMAL) CBC WITH DIFFERENTIAL (06/18/2021 4:15 AM CDT) [facility] WBC 7.9 4.5 - 10.5 K/uL 06/18/2021 8:52 AM CDT [facility] RBC 3.30(L) 3.90 - 4.90 M/uL 06/18/2021 8:52 AM CDT [facility] HEMOGLOBIN 9.0(L) 11.8 - 14.8 g/dL 06/18/2021 8:52 AM CDT [facility] HEMATOCRIT 28.2(L) 35.5 - 44.0 % 06/18/2021 8:52 AM CDT [facility] MCV 85.3 82.0 - 99.0 fL 06/18/2021 8:52 AM CDT [facility] MCH 27.3(L) 27.8 - 34.5 pg 06/18/2021 8:52 AM CDT [facility] MCHC 32.0(L) 32.5 - 35.5 g/dL 06/18/2021 8:52 AM CDT [facility] RDW 15.8(H) 11.5 - 14.5 % 06/18/2021 8:52 AM CDT [facility] PLATELETS 379 160 - 420 K/uL 06/18/2021 8:52 AM CDT [facility] MPV 7.4(L) 8.7 - 12.7 fL 06/18/2021 8:52 AM CDT [facility] NEUTROPHILS 59 % 06/18/2021 8:52 AM CDT [facility] LYMPHOCYTES 28 % 06/18/2021 8:52 AM CDT [facility] LABORATORY SERVICES [facility] MONOCYTES 8 % 06/18/2021 8:52 AM CDT [facility] LABORATORY SERVICES [facility] EOSINOPHILS 4 % 06/18/2021 8:52 AM CDT [facility] LABORATORY SERVICES [facility] BASOPHILS 1 % 06/18/2021 8:52 AM CDT [facility] LABORATORY [facility] NEUTROPHIL ABSOLUTE 4.70 1.90 - 7.00 K/uL 06/18/2021 8:52 AM CDT [facility] LABORATORY SERVICES [facility] LYMPHOCYTE ABSOLUTE 2.20 0.70 - 4.50 K/uL 06/18/2021 8:52 AM CDT [facility] LABORATORY SERVICES [facility] MONOCYTE ABSOLUTE 0.70 0.10 - 1.30 K/uL 06/18/2021 8:52 AM CDT [facility] LABORATORY SERVICES [facility] EOSINOPHIL ABSOLUTE 0.30 0.00 - 0.70 K/uL 06/18/2021 8:52 AM CDT [facility] LABORATORY SERVICES [facility] BASOPHILS ABSOLUTE 0.00 0.00 - 0.20 K/uL 06/18/2021 8:52 AM CDT [facility] LABORATORY [facility] Blood Collection / Unknown 06/18/2021 4:15 AM CDT 06/18/2021 8:44 AM CDT us Nargis Guy MD HEMATOLOGY ORDERABLES Final Resu lt [facility] CLIA# [id number] [place] [address] * (ABNORMAL) COMPREHENSIVE METABOLIC PANEL (06/18/2021 4:15 AM CDT) SODIUM 140 136 - 145 mmol/L 06/18/2021 8:50 AM CDT [facility] POTASSIUM 3.7 3.4 - 5.1 mmol/L 06/18/2021 8:50 AM CDT [facility] LABORATORY [facility] CHLORIDE 105 98 - 107 [...] 3 sq meter 06/18/2021 8:50 AM CDT [facility] LABORATORY SERVICES [facility] ANION GAP 12 8 - 16 mmol/L 06/18/2021 8:50 AM CDT [facility] LABORATORY [facility] Blood Collection / Unknown 06/18/2021 4:15 AM CDT 06/18/2021 8:18 AM CDT us Nargis Guy MD CHEMISTRY ORDERABLES Final Resul t [facility] LABORATORY [facility] CLIA# [id number] [place] [address] documented in this encounter Visit Diagnoses Not on filedocumented in this encounter
--- OUTSIDE RECORDS SUMMARY | 2025-09-22 18:04 | XMS_ITS | Encounter Summary ---
Author Organization [facility] Address [address] [place] [address] Care Team Providers Care Hot Mill Supervisor Name Role Phone Unavailable Primary Care Provider Unavailabl e Encounter Details Date Type Department Care Team (Late st Contact Info) Description 05/10/[address] [facility] Laboratory Services [address] [place] [address] [place] [address] [place] [address] Social History Tobacco Use Types [...] - 37.1 seconds 05/10/2021 9:45 AM CDT [facility] Blood Collection / Unknown 05/10/2021 6:11 AM CDT 05/10/2021 9:23 AM CDT Nargis Guy MD HEMATOLOGY ORDERABLES Final Resu lt [facility]# [id number] [address] [place] [address] * PROTIME-INR (05/10/2021 6:11 AM CDT) Pathologist [facility] PROTIME 14.4 11.5 - 14.7 Seconds 05/10/2021 9:45 AM CDT [facility] INR 1.1 0.9 - 1.1 05/10/2021 9:45 AM CDT [facility] Blood Collection / Unknown 05/10/2021 6:11 AM CDT 05/10/2021 9:23 AM CDT Nargis Guy MD HEMATOLOGY ORDERABLES Final Resu lt [facility]# [id number] [place] [address] * (ABNORMAL) PREALBUMIN (05/10/2021 6:11 AM CDT) Pathologist [facility] PREALBUMIN 13(L) 20 - 40 mg/dL 05/10/2021 10:20 AM CDT [facility] Blood Collection / Unknown 05/10/2021 6:11 AM CDT 05/10/2021 9:23 AM CDT Nargis Guy MD CHEMISTRY ORDERABLES Final Resul t [facility] CLIA# [id number] [place] [address] * (ABNORMAL) CBC WITH DIFFERENTIAL (05/10/2021 6:11 AM CDT) WBC 9.2 4.5 - 10.5 K/uL 05/10/2021 9:31 AM CDT [facility] RBC 2.81(L) 3.90 - 4.90 M/uL 05/10/2021 9:31 AM CDT [facility] HEMOGLOBIN 8.3(L) 11.8 - 14.8 g/dL 05/10/2021 9:31 AM CDT [facility] HEMATOCRIT 25.0(L) 35.5 - 44.0 % 05/10/2021 9:31 AM CDT [facility] MCV 88.9 82.0 - 99.0 fL 05/10/2021 9:31 AM CDT [facility] MCH 29.7 27.8 - 34.5 pg 05/10/2021 9:31 AM CDT [facility] MCHC 33.4 32.5 - 35.5 g/dL 05/10/2021 9:31 AM CDT [facility] RDW 14.7(H) 11.5 - 14.5 % 05/10/2021 9:31 AM CDT [facility] PLATELETS 421(H) 160 - 420 K/uL 05/10/2021 9:31 AM CDT [facility] MPV 7.9(L) 8.7 - 12.7 fL 05/10/2021 9:31 AM CDT [facility] NEUTROPHILS 68 45 - 70 % 05/10/2021 9:31 AM CDT [facility] LYMPHOCYTES 19 16 - 45 % 05/10/2021 9:31 AM CDT [facility] MONOCYTES 10 3 - 13 % 05/10/2021 9:31 AM CDT [facility] EOSINOPHILS 3 0 - 7 % 05/10/2021 9:31 AM CDT [facility] BASOPHILS 1 0 - 2 % 05/10/2021 9:31 AM CDT [facility] SERVICES [facility] NEUTROPHIL ABSOLUTE 6.20 1.90 - 7.00 K/uL 05/10/2021 9:31 AM CDT [facility] LYMPHOCYTE ABSOLUTE 1.70 0.70 - 4.50 K/uL 05/10/2021 9:31 AM CDT [facility] MONOCYTE ABSOLUTE 0.90 0.10 - 1.30 K/uL 05/10/2021 9:31 AM CDT [facility] EOSINOPHIL ABSOLUTE 0.20 0.00 - 0.70 K/uL 05/10/2021 9:31 AM CDT [facility] SERVICES [facility] BASOPHILS ABSOLUTE 0.10 0.00 - 0.20 K/uL 05/10/2021 9:31 AM CDT [facility] Blood Collection / Unknown 05/10/2021 6:11 AM CDT 05/10/2021 9:23 AM CDT us Nargis Guy MD HEMATOLOGY ORDERABLES Final Resu lt [facility] CLIA# [id number] [place] [address] * (ABNORMAL) COMPREHENSIVE METABOLIC PANEL (05/10/2021 6:11 AM CDT) SODIUM 143 136 - 145 mmol/L 05/10/2021 10:18 AM CDT [facility] POTASSIUM 4.2 3.4 - 5.1 mmol/L 05/10/2021 10:18 AM CDT [facility] CHLORIDE 109(H) 98 - 107 mmol/L 05/10/2021 10:18 AM CDT [facility] CO2 20(L) 22 - 29 mmol/L 05/10/2021 10:18 AM [facility] CALCIUM 8.5(L) 8.6 - 10.4 mg/dL 05/10/2021 10:18 AM [facility] BUN 20 6 - 20 mg/dL 05/10/2021 10:18 AM [facility] CREATININE 2.50(H) 0.51 - 0.95 mg/dL 05/10/2021 10:18 AM [facility] GLUCOSE 96 74 - 99 mg/dL 05/10/2021 10:18 AM [facility] TOTAL PROTEIN 6.6 6.3 - 8.7 g/dL 05/10/2021 10:18 AM [facility] ALBUMIN 2.6(L) 3.5 - 5.2 g/dL 05/10/2021 10:18 AM [facility] BILIRUBIN TOTAL 0.2(L) 0.3 - 1.2 mg/dL 05/10/2021 10:18 AM [facility] ALKALINE PHOSPHATASE 94 40 - 150 U/L 05/10/2021 10:18 AM [facility] AST 24 0 - 33 U/L 05/10/2021 10:18 AM [facility] ALT 17 0 - 33 U/L 05/10/2021 10:18 AM [facility] GFR 20 mL/min/1.7 3 sq meter 05/10/2021 10:18 AM [facility] Comment: eGFR has not been validated for [...] 3 sq meter 05/10/2021 10:18 AM CDT [facility] ANION GAP 14 8 - 16 mmol/L 05/10/2021 10:18 AM CDT [facility] Blood Collection / Unknown 05/10/2021 6:11 AM CDT 05/10/2021 9:23 AM CDT us Nargis Guy MD CHEMISTRY ORDERABLES Final Resul t [facility] CLIA# [id number] [place] [address] documented in this encounter Visit Diagnoses Not on filedocumented in this encounter
--- OUTSIDE RECORDS SUMMARY | 2025-09-22 18:04 | XMS_ITS | Encounter Summary ---
Author Organization [facility] Address [address] [place] [address] Care Team Providers Care Morgue Technician Name Role Phone Unavailable Primary Care Provider Unavailabl e Encounter Details Date Type Department Care Team (Late st Contact Info) Description 05/26/2021 Lab Requisition [facility] Laboratory Services [address] [place] [address] [facility], External Provider [address] [place] [address] Social History Tobacco Use Types Packs/Day Years [...] - 37.1 seconds 05/26/2021 7:19 AM CDT [facility] Blood Collection / Unknown 05/26/2021 4:30 AM CDT 05/26/2021 6:22 AM CDT External Provider [facility] HEMATOLOGY ORDERABLES Fin al Result [facility] [id number] [place] [address] * PROTIME-INR (05/26/2021 4:30 AM CDT) PROTIME 13.4 11.5 - 14.7 Seconds 05/26/2021 7:19 AM CDT [facility] INR 1.0 0.9 - 1.1 05/26/2021 7:19 AM CDT [facility] [employer] [facility] Blood Collection / Unknown 05/26/2021 4:30 AM CDT 05/26/2021 6:22 AM CDT Result [facility] External Provider [facility] HEMATOLOGY ORDERABLES Fin al Result Performing Organization Address City/[facility]/ZIP Co de Phone Number [facility] [id number] [place] [address] * (ABNORMAL) PREALBUMIN (05/26/2021 4:30 AM CDT) PREALBUMIN 17(L) 20 - 40 mg/dL 05/26/2021 12:53 PM CDT [facility] Blood Collection / Unknown 05/26/2021 4:30 AM CDT 05/26/2021 6:22 AM CDT External Provider [facility] CHEMISTRY ORDERABLES Jennie l Result [facility] CLIA# [id number] [address] [facility] [place] [address] * (ABNORMAL) CBC WITH DIFFERENTIAL (05/26/2021 4:30 AM CDT) WBC 10.1 4.5 - 10.5 K/uL 05/26/2021 7:23 AM CDT [facility] RBC 3.06(L) 3.90 - 4.90 M/uL 05/26/2021 7:23 AM CDT [facility] HEMOGLOBIN 8.8(L) 11.8 - 14.8 g/dL 05/26/2021 7:23 AM CDT [facility] HEMATOCRIT 27.2(L) 35.5 - 44.0 % 05/26/2021 7:23 AM CDT [facility] MCV 89.0 82.0 - 99.0 fL 05/26/2021 7:23 AM CDT [facility] MCH 28.8 27.8 - 34.5 pg 05/26/2021 7:23 AM CDT [facility] MCHC 32.3(L) 32.5 - 35.5 g/dL 05/26/2021 7:23 AM CDT [facility] RDW 16.0(H) 11.5 - 14.5 % 05/26/2021 7:23 AM CDT [facility] PLATELETS 399 160 - 420 K/uL 05/26/2021 7:23 AM CDT [facility] MPV 7.8(L) 8.7 - 12.7 fL 05/26/2021 7:23 AM CDT [facility] NEUTROPHILS 71 % 05/26/2021 7:23 AM CDT [facility] LYMPHOCYTES 18 % 05/26/2021 7:23 AM CDT [facility] MONOCYTES 8 % 05/26/2021 7:23 AM CDT [facility] EOSINOPHILS 3 % 05/26/2021 7:23 AM CDT [facility] BASOPHILS 1 % 05/26/2021 7:23 AM CDT [facility] NEUTROPHIL ABSOLUTE 7.20(H) 1.90 - 7.00 K/uL 05/26/2021 7:23 AM CDT [facility] LYMPHOCYTE ABSOLUTE 1.90 0.70 - 4.50 K/uL 05/26/2021 7:23 AM CDT [facility] MONOCYTE ABSOLUTE 0.80 0.10 - 1.30 K/uL 05/26/2021 7:23 AM CDT [facility]ORATORY SERVICES [facility] EOSINOPHIL ABSOLUTE 0.30 0.00 - 0.70 K/uL 05/26/2021 7:23 AM CDT [facility] SERVICES [facility] BASOPHILS ABSOLUTE 0.00 0.00 - 0.20 K/uL 05/26/2021 7:23 AM CDT [facility] Blood Collection / Unknown 05/26/2021 4:30 AM CDT 05/26/2021 6:22 AM CDT us External Provider [facility] HEMATOLOGY ORDERABLES Fin al Result [facility] CLIA# [id number] [place] [address] * (ABNORMAL) COMPREHENSIVE METABOLIC PANEL (05/26/2021 4:30 AM CDT) SODIUM 144 136 - 145 mmol/L 05/26/2021 7:23 AM CDT [facility] POTASSIUM 3.7 3.4 - 5.1 mmol/L 05/26/2021 7:23 AM CDT [facility] CHLORIDE 109(H) 98 - 107 mmol/L 05/26/2021 7:23 AM CDT [facility] CO2 24 22 - 29 mmol/L 05/26/2021 7:23 AM CDT [facility] CALCIUM 8.3(L) 8.6 - 10.4 mg/dL 05/26/2021 7:23 AM [facility] BUN 19 6 - 20 mg/dL 05/26/2021 7:23 AM [facility] CREATININE 1.18(H) 0.51 - 0.95 mg/dL 05/26/2021 7:23 AM [facility] GLUCOSE 171(H) 74 - 99 mg/dL 05/26/2021 7:23 AM [facility] TOTAL PROTEIN 5.9(L) 6.3 - 8.7 g/dL 05/26/2021 7:23 AM [facility] ALBUMIN 2.6(L) 3.5 - 5.2 g/dL 05/26/2021 7:23 AM [facility] BILIRUBIN TOTAL 0.2(L) 0.3 - 1.2 mg/dL 05/26/2021 7:23 AM [facility] ALKALINE PHOSPHATASE 112 40 - 150 U/L 05/26/2021 7:23 AM [facility] AST 35(H) 0 - 33 U/L 05/26/2021 7:23 AM [facility] ALT 34(H) 0 - 33 U/L 05/26/2021 7:23 AM [facility] GFR 47 mL/min/1.7 3 sq meter 05/26/2021 7:23 AM [facility] Comment: eGFR has not been [...] meter 05/26/2021 7:23 AM [facility] ANION GAP 11 8 - 16 mmol/L 05/26/2021 7:23 AM CDT [facility] SERVICES - [facility] Blood Collection / Unknown 05/26/2021 4:30 AM CDT 05/26/2021 6:22 AM CDT us External Provider [facility] CHEMISTRY ORDERABLES Jennie l Result [facility] SERVICES - [facility] CLIA# [id number] [address] [place] [address] documented in this encounter Visit Diagnoses Not on filedocumented in this encounter
--- OUTSIDE RECORDS SUMMARY | 2025-09-22 18:04 | XMS_ITS | Encounter Summary ---
Author Organization [facility] Address [address] [place] [address] Care Team Providers Care Workforce Management Coordinator Name Role Phone Unavailable Primary Care Provider Unavailabl e Encounter Details Date Type Department Care Team (Late st Contact Info) Description 06/11/2021 Lab Requisition [facility] Laboratory Services [address] [place] [address] [place] [address] [place] [address] Social History Tobacco Use [...]
--- OUTSIDE RECORDS SUMMARY | 2025-09-22 18:04 | XMS_ITS | Encounter Summary ---
Author Organization [facility] Address [address] [place] [address] Care Team Providers Care Benzene Operator Name Role Phone Karime Aguilera RN, Haresh K MD Primary Care Provider [phone] Reason for Visit * Reason Onset Date Comments Nurse Only 01/18/2025 Encounter Details Date Type Department Care Team (Late st Contact Info) Description 01/18/2025 Telephone [facility] - QUALITY INSPECTOR [address] [place] [address] Christy Khan MD [address] [facility] [address] [place] [address] Nurse Only Social History Tobacco [...] her to give our office a call. PRESS OPERATOR * Telephone Encounter - Tito Dunaway - 01/18/2025 1:04 PM CST Muna returning missed call for Juliann and request a nurse calls Juliann phone Muna will be occupied with another patient and wont be able to answer PRESS OPERATOR documented in this encounter Plan of Treatment Not on file documented as of this encounter Visit Diagnoses Not on filedocumented in this encounter Care Teams Benzene Operator Relationship Specialty Start Date End Date Gurvinder Renteria MD [address] [place] [address] PCP - General 01/01/22 Karime Aguilera, RN 05/07/18 documented as of this encounter
--- OUTSIDE RECORDS SUMMARY | 2025-09-22 18:04 | XMS_ITS | Encounter Summary ---
Author Organization [facility] Address [address] [place] [address] Care Team Providers Care Heavy Duty Diesel Mechanic Name Role Phone Unavailable Primary Care Provider Unavailabl e Encounter Details Date Type Department Care Team (Late st Contact Info) Description 05/28/2021 Lab Requisition [facility] Laboratory Services [address] [place] [address] [place] [address] [place] [address] Social History Tobacco Use Types [...] ORDERABLES Final Resul t Performing Organization Address [facility] de Phone Number [facility] CLIA# [id number] [place] [address] * (ABNORMAL) VITAMIN D 25 HYDROXY (05/28/2021 5:00 AM CDT) VITAMIN D TOTAL (25OH) 14(L) 30 - 100 ng/mL 05/28/2021 12:03 PM CDT [facility] Blood Collection / Unknown 05/28/2021 5:00 AM CDT 05/28/2021 11:07 AM CDT Narrative [facility] - 05/28/2021 12:03 PM CDT Interpretive Data Chart: Deficient: 0 - 20 ng/mL Insufficient: 21 - 29 ng/mL Sufficient: 30 - 100 ng/mL Increased Risk of Hypercalciuria: >100 ng/ml Toxic: >150 ng/ml Nargis Guy MD CHEMISTRY ORDERABLES Final Resul t Performing Organization Address [facility] Co de Phone Number [facility] CLIA# [id number] [place] [address] * (ABNORMAL) CBC WITH DIFFERENTIAL (05/28/2021 5:00 AM CDT) Pathologist [facility] WBC 8.2 4.5 - 10.5 K/uL 05/28/2021 11:15 AM CDT [facility] [employer] [facility] RBC 3.22(L) 3.90 - 4.90 M/uL 05/28/2021 11:15 AM CDT [facility] [employer] [facility] HEMOGLOBIN 9.2(L) 11.8 - 14.8 g/dL 05/28/2021 11:15 AM CDT [facility] HEMATOCRIT 28.5(L) 35.5 - 44.0 % 05/28/2021 11:15 AM CDT [facility] - [facility] MCV 88.3 82.0 - 99.0 fL 05/28/2021 11:15 AM CDT [facility] MCH 28.7 27.8 - 34.5 pg 05/28/2021 11:15 AM CDT [facility] LABORATORY SERVICES [facility] MCHC 32.5 32.5 - 35.5 g/dL 05/28/2021 11:15 AM CDT [facility] LABORATORY SERVICES [facility] RDW 16.6(H) 11.5 - 14.5 % 05/28/2021 11:15 AM CDT [facility] LABORATORY SERVICES [facility] PLATELETS 363 160 - 420 K/uL 05/28/2021 11:15 AM CDT [facility]ORATORY SERVICES [facility] MPV 7.5(L) 8.7 - 12.7 fL 05/28/2021 11:15 AM CDT [facility]ORATORY SERVICES [facility] NEUTROPHILS 68 % 05/28/2021 11:15 AM CDT [facility]ATORY SERVICES [facility] LYMPHOCYTES 21 % 05/28/2021 11:15 AM CDT [facility]ORATORY SERVICES [facility] MONOCYTES 7 % 05/28/2021 11:15 AM CDT [facility] LABORATORY SERVICES [facility] EOSINOPHILS 4 % 05/28/2021 11:15 AM CDT [facility] LABORATORY SERVICES [facility] BASOPHILS 1 % 05/28/2021 11:15 AM CDT [facility] LABORATORY SERVICES [facility] NEUTROPHIL ABSOLUTE 5.50 1.90 - 7.00 K/uL 05/28/2021 11:15 AM CDT [facility] LABORATORY SERVICES [facility] LYMPHOCYTE ABSOLUTE 1.70 0.70 - 4.50 K/uL 05/28/2021 11:15 AM CDT [facility] LABORATORY SERVICES [facility] MONOCYTE ABSOLUTE 0.60 0.10 - 1.30 K/uL 05/28/2021 11:15 AM CDT [facility] LABORATORY SERVICES [facility] EOSINOPHIL ABSOLUTE 0.30 0.00 - 0.70 K/uL 05/28/2021 11:15 AM CDT [facility] LABORATORY [facility] BASOPHILS ABSOLUTE 0.10 0.00 - 0.20 K/uL 05/28/2021 11:15 AM CDT [facility] Blood Collection / Unknown 05/28/2021 5:00 AM CDT 05/28/2021 11:07 AM CDT us Nargis Guy MD HEMATOLOGY ORDERABLES Final Resu lt [facility] CLIA# [id number] [place] [address] * (ABNORMAL) BASIC METABOLIC PANEL (05/28/2021 5:00 AM CDT) SODIUM 145 136 - 145 mmol/L 05/28/2021 11:44 AM T [facility] POTASSIUM 3.7 3.4 - 5.1 mmol/L 05/28/2021 11:44 AM [facility] CHLORIDE 108(H) 98 - 107 mmol/L 05/28/2021 11:44 AM T [facility] CO2 24 22 - 29 mmol/L 05/28/2021 11:44 AM [facility] CALCIUM 8.4(L) 8.6 - 10.4 mg/dL 05/28/2021 11:44 AM [facility] BUN 14 6 - 20 mg/dL 05/28/2021 11:44 AM [facility] CREATININE 1.17(H) 0.51 - 0.95 mg/dL 05/28/2021 11:44 AM T [facility] [employer] [facility] GLUCOSE 105(H) 74 - 99 mg/dL 05/28/2021 11:44 AM T [facility] [employer] [facility] GFR 47 mL/min/1.7 3 sq meter 05/28/2021 11:44 AM T [facility] [employer] [facility] Comment: eGFR has not been [...] 3 sq meter 05/28/2021 11:44 AM CDT [facility] LAB[facility]AT[facility] ANION GAP 13 8 - 16 mmol/L 05/28/2021 11:44 AM CDT [facility] Blood Collection / Unknown 05/28/2021 5:00 AM CDT 05/28/2021 11:07 AM CDT us Nargis Guy MD CHEMISTRY ORDERABLES Final Resul t [facility] CLIA# [id number] [place] [address] documented in this encounter Visit Diagnoses Not on filedocumented in this encounter
--- OUTSIDE RECORDS SUMMARY | 2025-09-22 18:04 | XMS_ITS | Encounter Summary ---
Author Organization [facility] Address [address] [place] [address] Care Team Providers Care Binder Coverstitch Name Role Phone Murali Silva MD Primary Care Provider [phone] Karime Aguilera RN [facility] Gurvinder Stephens MD Primary Care Provider [phone] Reason for Visit * Reason Onset Date Comments Update 05/06/2018 Encounter Details Date Type Department Care Team (Late st Contact Info) Description 05/06/2018 Telephone [facility] [address] [place] [address] Christy Khan MD [address] [id number] Update Social History Tobacco Use Types Packs/Day [...] like a call back please. Pt callback #[phone] documented in this encounter Plan of Treatment Not on file documented as of this encounter Visit Diagnoses Not on filedocumented in this encounter Care Teams Binder Coverstitch Relationship Specialty Start Date End Date Murali Silva MD [address] [place] [address] PCP - General 03/03/18 12/31/21 Gurvinder Renteria MD [address] [place] [address] PCP - General 01/01/22 Karime Aguilera RN 05/07/18 documented as of this encounter
--- OUTSIDE RECORDS SUMMARY | 2025-09-22 18:04 | XMS_ITS | Encounter Summary ---
Author Organization [facility] Address [address] [place] [address] Care Team Providers Care Manufacturing Quality Manager Name Role Phone Unavailable Primary Care Provider Unavailabl e Encounter Details Date Type Department Care Team (Late st Contact Info) Description 05/12/2021 Lab Requisition [facility] Laboratory Services [address] [place] [address] [place] [id number] [place] [address] Social History Tobacco Use Types [...] ) HAKEEM MCG/ML 05/13/2021 2:10 PM CDT [facility] Urine URINE SPECIMEN OBTAINED BY CLEAN CATCH PROCEDURE / Unknown Collection / Unknown 05/11/2021 7:53 PM CDT 05/12/2021 10:42 AM CDT Nargis Guy MD MICROBIOLOGY - GENERAL ORDERABLE S Final Result [facility] CLIA# [id number] [place], [place] [address] * (ABNORMAL) URINALYSIS WITH REFLEX CULTURE (05/11/2021 7:53 PM CDT) COLOR UA Pale Yellow Pale to Dark Yellow 05/12/2021 10:42 AM CDT [facility] [employer] [facility] CLARITY UA Slightly Cloudy(A) Clear 05/12/2021 10:42 AM CDT [facility] [employer] [facility] SPECIFIC GRAVITY UA 1.015 1.003 - 1.035 05/12/2021 10:42 AM CDT [facility] [employer] [facility] PH UA 6.0 5.0 - 8.0 05/12/2021 10:42 AM CDT [facility] [employer] [facility] LEUKOCYTE ESTERASE UA 3+(A) Negative 05/12/2021 10:42 AM CDT [facility] [employer] [facility] NITRITE UA Negative Negative 05/12/2021 10:42 AM CDT [facility] [employer] [facility] PROTEIN UA Negative Negative 05/12/2021 10:42 AM CDT [facility] [employer] [facility] GLUCOSE UA Negative Negative 05/12/2021 10:42 AM CDT [facility] [employer] [facility] KETONES UA Negative Negative 05/12/2021 10:42 AM CDT [facility] [employer] [facility] UROBILINOGEN UA Normal <2.0 mg/dL 10:42 AM CDT [facility] [employer] [facility] BILIRUBIN UA Negative Negative 05/12/2021 10:42 AM CDT [facility] [employer] [facility] BLOOD UA Negative Negative 05/12/2021 10:42 AM CDT [facility] WBC UA 11-25(A) 0 - 2 /hpf 05/12/2021 10:42 AM CDT [facility] RBC UA 6-10(A) 0 - 2 /hpf 05/12/2021 10:42 AM CDT [facility] BACTERIA UA 1+(A) Negative /hpf 05/12/2021 10:42 AM CDT [facility] EPITHELIAL CELLS, URINE 0-5 0 - 5 /hpf 05/12/2021 10:42 AM CDT [facility] HYALINE CAST None Seen None Seen, 0-2 /lpf 05/12/2021 10:42 AM CDT [facility] YEAST, BUDDING Present(A) Absent 05/12/2021 10:42 AM CDT [facility] Urine URINE SPECIMEN OBTAINED BY CLEAN CATCH PROCEDURE / Unknown Collection / Unknown 05/11/2021 7:53 PM CDT 05/12/2021 10:22 AM CDT Narrative [facility] - 05/12/2021 10:42 AM CDT Based on results, a urine culture has been reflexed. us Nargis Guy MD URINE ORDERABLES Final Result [facility] CLIA# [id number] [place] [address] documented in this encounter Visit Diagnoses Not on filedocumented in this encounter
--- OUTSIDE RECORDS SUMMARY | 2025-09-22 18:04 | XMS_ITS | Encounter Summary ---
Author Organization [facility] Address [address] [place] [address] Care Team Providers Care Import Export Manager Name Role Phone Unavailable Primary Care Provider Unavailabl e Encounter Details Date Type Department Care Team (Late st Contact Info) Description 06/11/2021 Lab Requisition [facility] Laboratory Services [address] [place] [address] [place] [address] [place] [address] Social History Tobacco Use [...] - 40 mg/dL 06/11/2021 5:53 PM CDT [facility] Blood Collection / Unknown 06/11/2021 11:20 AM CDT 06/11/2021 1:21 PM CDT Nargis Guy MD CHEMISTRY ORDERABLES Final Resul t [facility] CLIA# [id number] [address] [place] [address] * (ABNORMAL) CBC WITH DIFFERENTIAL (06/11/2021 11:20 AM CDT) Pathologist [facility] [place] WBC 8.8 4.5 - 10.5 K/uL 06/11/2021 1:38 PM CDT [facility] RBC 3.64(L) 3.90 - 4.90 M/uL 06/11/2021 1:38 PM CDT [facility] HEMOGLOBIN 10.1(L) 11.8 - 14.8 g/dL 06/11/2021 1:38 PM CDT [facility] HEMATOCRIT 31.5(L) 35.5 - 44.0 % 06/11/2021 1:38 PM CDT [facility] MCV 86.7 82.0 - 99.0 fL 06/11/2021 1:38 PM CDT [facility] MCH 27.9 27.8 - 34.5 pg 06/11/2021 1:38 PM CDT [facility] MCHC 32.2(L) 32.5 - 35.5 g/dL 06/11/2021 1:38 PM CDT [facility] RDW 15.8(H) 11.5 - 14.5 % 06/11/2021 1:38 PM CDT [facility] PLATELETS 470(H) 160 - 420 K/uL 06/11/2021 1:38 PM CDT [facility] MPV 8.0(L) 8.7 - 12.7 fL 06/11/2021 1:38 PM CDT [facility] NEUTROPHILS 62 % 06/11/2021 1:38 PM CDT [facility] LYMPHOCYTES 23 % 06/11/2021 1:38 PM CDT [facility] MONOCYTES 9 % 06/11/2021 1:38 PM CDT [facility] EOSINOPHILS 5 % 06/11/2021 1:38 PM CDT [facility] BASOPHILS 1 % 06/11/2021 1:38 PM CDT [facility] NEUTROPHIL ABSOLUTE 5.40 1.90 - 7.00 K/uL 06/11/2021 1:38 PM CDT [facility] LYMPHOCYTE ABSOLUTE 2.00 0.70 - 4.50 K/uL 06/11/2021 1:38 PM CDT [facility] MONOCYTE ABSOLUTE 0.80 0.10 - 1.30 K/uL 06/11/2021 1:38 PM CDT [facility] EOSINOPHIL ABSOLUTE 0.50 0.00 - 0.70 K/uL 06/11/2021 1:38 PM CDT [facility] BASOPHILS ABSOLUTE 0.10 0.00 - 0.20 K/uL 06/11/2021 1:38 PM CDT [facility] Blood Collection / Unknown 06/11/2021 11:20 AM CDT 06/11/2021 1:21 PM CDT us Nargis Guy MD HEMATOLOGY ORDERABLES Final Resu lt [facility] CLIA# [id number] [place] [address] * (ABNORMAL) COMPREHENSIVE METABOLIC PANEL (06/11/2021 11:20 AM CDT) SODIUM 140 136 - 145 mmol/L 06/11/2021 1:52 PM CDT [facility] POTASSIUM 4.1 3.4 - 5.1 mmol/L 06/11/2021 1:52 PM [facility] CHLORIDE 104 98 - 107 mmol/L 06/11/2021 1:52 PM [facility] CO2 24 22 - 29 mmol/L 06/11/2021 1:52 PM [facility] CALCIUM 8.6 8.6 - 10.4 mg/dL 06/11/2021 1:52 PM [facility] BUN 10 6 - 20 mg/dL 06/11/2021 1:52 PM [facility] CREATININE 0.94 0.51 - 0.95 mg/dL 06/11/2021 1:52 PM [facility] GLUCOSE 157(H) 74 - 99 mg/dL 06/11/2021 1:52 PM [facility] TOTAL PROTEIN 6.1(L) 6.3 - 8.7 g/dL 06/11/2021 1:52 PM [facility] ALBUMIN 2.7(L) 3.5 - 5.2 g/dL 06/11/2021 1:52 PM [facility] BILIRUBIN TOTAL <0.2(L) 0.3 - 1.2 mg/dL 06/11/2021 1:52 PM [facility] ALKALINE PHOSPHATASE 155(H) 40 - 150 U/L 06/11/2021 1:52 PM [facility] AST 45(H) 0 - 33 U/L 06/11/2021 1:52 PM [facility] ALT 44(H) 0 - 33 U/L 06/11/2021 1:52 PM [facility] GFR >60 mL/min/1.7 3 sq meter 06/11/2021 1:52 PM [facility] Comment: eGFR has not [...] 3 sq meter 06/11/2021 1:52 PM CDT [facility] ANION GAP 12 8 - 16 mmol/L 06/11/2021 1:52 PM CDT [facility] Blood Collection / Unknown 06/11/2021 11:20 AM CDT 06/11/2021 1:21 PM CDT us Nargis Guy MD CHEMISTRY ORDERABLES Final Resul t [facility] CLIA# [id number] [place] [address] documented in this encounter Visit Diagnoses Not on filedocumented in this encounter
== END 2025-09-22 14:25 | disposition home or self-care (01) ==
PROVIDERS: Emergency Provider Student in an Organized Health Care Education/Training Program; PCP Family Medicine
DX: K52.9 Noninfective gastroenteritis and colitis, unspecified (principal); E11.65 Type 2 diabetes mellitus with hyperglycemia; R81 Glycosuria; Z20.822 Contact with and (suspected) exposure to COVID-19; I50.9 Heart failure, unspecified; I11.0 Hypertensive heart disease with heart failure; I48.91 Unspecified atrial fibrillation; E11.40 Type 2 diabetes mellitus with diabetic neuropathy, unspecified; E66.01 Morbid (severe) obesity due to excess calories; Z68.43 Body mass index [BMI] 50.0-59.9, adult; J44.9 Chronic obstructive pulmonary disease, unspecified; G25.81 Restless legs syndrome; M17.9 Osteoarthritis of knee, unspecified; F41.9 Anxiety disorder, unspecified; F31.9 Bipolar disorder, unspecified; F17.210 Nicotine dependence, cigarettes, uncomplicated; Z74.01 Bed confinement status; Z95.5 Presence of coronary angioplasty implant and graft; Z85.42 Personal history of malignant neoplasm of other parts of uterus; Z85.828 Personal history of other malignant neoplasm of skin; Z90.710 Acquired absence of both cervix and uterus; Z90.49 Acquired absence of other specified parts of digestive tract; Z79.899 Other long term (current) drug therapy; Z79.84 Long term (current) use of oral hypoglycemic drugs; Z79.01 Long term (current) use of anticoagulants; Z79.4 Long term (current) use of insulin
CPT/HCPCS: 36415; 71045; 80053; 81003; 83605; 83690; 83735; 85025; 87637; 94640; 96361; 96374; 96375; 99284; J1200; J1630; J2405; J7030

== ENCOUNTER 2025-10-20 11:57 | Outpatient (NON) | payer OTHER, SELFPAY ==
[2025-10-20 12:15] LABS: Hematocrit 51.5 % (37.0-47.0); Hemoglobin 16.4 g/dL (12.0-15.0); Mean Corpuscular HGB Conc 31.8 g/dl (32-36); Mean Corpuscular Hemoglobin 29.2 pg (26-34); Mean Corpuscular Volume 91.6 fl (80-100); Platelet Count Result 286 k/mm3 (150-375); Red Blood Count 5.62 M/mm3 (4.2-5.4); White Blood Count 10.2 K/mm3 (4.5-10.0)
[2025-10-20 12:31] LABS: Alanine Aminotransferase 17 U/L (6-35); Albumin Level 3.9 g/dL (3.5-5.1); Alkaline Phosphatase 108 U/L (38-126); Anion Gap 5 mmol/L (4-12); Aspartate Amino Transferase 19 U/L (14-36); Bilirubin,Total 0.5 mg/dL (0.2-1.3); Blood Urea Nitrogen 12 mg/dL (7-17); Calcium 9.3 mg/dL (8.4-10.2); Carbon Dioxide 27 mmol/L (22-30); Chloride 103 mmol/L (98-107); Cholesterol 175 mg/dL (0-200); Estimated Glomerular Filt Rate > 60; Glucose 158 mg/dL (65-110); HDL Direct 34 mg/dL; Magnesium 2.0 mg/dL (1.6-2.3); Potassium 3.8 mmol/L (3.4-5.0); Sodium 135 mmol/L (137-145); Total Protein 7.2 g/dL (6.3-8.2); Triglycerides 186 mg/dL (<150)
[2025-10-20 12:37] LABS: Hemoglobin A1C 6.6 % (<5.7); NT Pro B Type Natriuretic Pept 273 pg/mL (19.9-100)
[2025-10-20 12:47] LABS: Free T4 Free Thyroxine 1.26 ng/dL (0.78-2.19)
[2025-10-20 12:59] LABS: Thyroid Stimulating Hormone 1.260 uIU/mL (0.465-4.680)
[2025-10-20 13:35] LABS: Vitamin B12 241.0 pg/mL (239-931)
== END 2025-10-20 11:58 | disposition home or self-care (01) ==
LOC: ANHLAB 11:59 → HOME HLTH 11:59
PROVIDERS: PCP Family Medicine; Visit Provider Family Medicine
DX: D64.9 Anemia, unspecified (principal); E11.42 Type 2 diabetes mellitus with diabetic polyneuropathy; R53.1 Weakness; E78.5 Hyperlipidemia, unspecified; I48.91 Unspecified atrial fibrillation; E55.9 Vitamin D deficiency, unspecified
CPT/HCPCS: 80053; 80061; 82306; 82607; 82746; 83036; 83735; 83880; 84439; 84443; 85027